=== PATIENT | male | born 1985 | race Two or more races ===

== ENCOUNTER 2019-10-14 02:48 | Emergency (ER) | payer SELFPAY ==
[~2019-10-14] VITALS: Ht 175.3 cm; Wt 9.1 kg
[2019-10-14 02:50] VITALS: BP 136/88
[2019-10-14] MEDS ORDERED: AZIT250T29 PO (03:14)
[2019-10-14] MEDS ORDERED: ALBU8.5H8 INH (03:14)
[2019-10-14] MEDS ORDERED: PRED20TA PO (03:14)
[2019-10-14] MEDS ORDERED: predniSONE 20 mg tablet PO ONE (03:30)
[2019-10-14] MEDS ORDERED: prednisone 10mg tablet PO SCH (03:30)
== END 2019-10-14 03:23 | disposition home or self-care (01) ==
LOC: ER 02:48 → EDBD 02:48 → ER 03:23
DX: J20.9 Acute bronchitis, unspecified (principal)
CPT/HCPCS: 99283; J7512

== ENCOUNTER 2021-07-10 09:59 | Emergency (ER) | payer SELFPAY ==
[~2021-07-10] VITALS: Ht 175.3 cm; Wt 93.2 kg
[~2021-07-10 09:59] MED LIST: ALBU8.5H17 INH
[2021-07-10 10:12] VITALS: BP 149/94
[2021-07-10 11:28] LABS: BASOPHILS % (AUTO) 0.1 % (0-1); EOSINOPHILS % (AUTO) 0 % (0-6); HEMATOCRIT 43.1 % (42.0-52.0); HEMOGLOBIN 15.2 g/dl (14.0-17.9); LYMPHOCYTES # (AUTO) 0.7 X10'3 (1.1-4.8); LYMPHOCYTES % (AUTO) 12.1 % (21-51); MEAN CORPUSCULAR HEMOGLOBIN 30.7 PG (27.0-31.0); MEAN CORPUSCULAR HGB CONC 35.3 g/dL (33.0-36.5); MEAN CORPUSCULAR VOLUME 87.1 FL (78-98); MONOCYTES # (AUTO) 0.4 X10'3 (0-0.9); MONOCYTES % (AUTO) 6.7 % (2-12); NEUTROPHILS # (AUTO) 4.7 X10'3 (1.8-7.7); NEUTROPHILS % (AUTO) 81.1 % (42-75); PLATELET COUNT 175 X10'3 (140-440); RED BLOOD COUNT 4.95 X10'6 (4.70-6.10); RED CELL DISTRIBUTION WIDTH 12.4 % (11.5-14.5); WHITE BLOOD COUNT 5.7 X10'3 (4.5-11.0)
[2021-07-10 11:41] LABS: ALANINE AMINOTRANSFERASE 20 U/L (12-78); ALBUMIN 3.2 G/DL (3.4-5.0); ALBUMIN/GLOBULIN RATIO 0.7 (1.1-1.5); ALKALINE PHOSPHATASE 92 IU/L (46-116); ANION GAP 19 (8-16); ASPARTATE AMINO TRANSFERASE 26 U/L (10-37); BILIRUBIN,TOTAL 0.6 MG/DL (0.1-1.0); BLOOD UREA NITROGEN 11 MG/DL (7-18); BUN/CREATININE RATIO 11.7 (5.4-32.0); CALCIUM 8.6 MG/DL (8.5-10.1); CHLORIDE 96 MMOL/L (99-107); CREATININE 0.94 MG/DL (0.60-1.10); GLUCOSE 221 MG/DL (70-104); POTASSIUM 4.3 MMOL/L (3.5-5.1); SODIUM 135 MMOL/L (135-145); TOTAL CARBON DIOXIDE 20.1 MMOL/L (24-32); eGFR > 90 ML/MIN
[2021-07-10] MEDS ORDERED: GUAI400T92 PO (12:57)
[2021-07-10] MEDS ORDERED: BENZ-38 PO (12:57)
== END 2021-07-10 13:29 | disposition home or self-care (01) ==
LOC: ER 10:00
DX: U07.1 COVID-19 (principal); J02.9 Acute pharyngitis, unspecified; R50.9 Fever, unspecified; R05.9 Cough, unspecified; R51.9 Headache, unspecified; R11.0 Nausea; Z79.899 Other long term (current) drug therapy
CPT/HCPCS: 36415; 80053; 85025; 87635; 99283; C9803

== ENCOUNTER 2021-07-23 11:25 | Inpatient (IN) | payer MEDICAID, OTHER ==
[~2021-07-23] VITALS: Ht 175.3 cm; Wt 52.1 kg
[~2021-07-23 11:25] MED LIST changes: +BENZ-38 PO; +GUAI400T92 PO; +etomidate 2mg/ml inj. ONE; +rocuronium 10mg/ml inj IV ONE
--- NOTE | 2021-07-23 11:58 | NUR ---
Pt stated that he has had increase SOB x 3 days. Pt has rapid respirations with grunting. Skin is cool Addendum: 07/23/21 at 1222 by [email or web address] Skin is cool, pale, and diaphoretic. On 6L NC. Waiting for RT to begin BiPap.
[2021-07-23] MEDS ORDERED: normal saline 1000ML IV soln IVB ONE (12:05)
[2021-07-23] MEDS ORDERED: enoxaparin 100mg/ml syringe SUBCUT ONE ×2 (12:05→12:10)
[2021-07-23] MEDS ORDERED: ringers solution, lactated 1000ml IV soln IV ONE (12:05)
--- NOTE | 2021-07-23 12:15 | NUR ---
RT at bedside and applied hi flow O2 NC and NRBM. Pt's color improved.
[2021-07-23 12:26] LABS: BASOPHILS # (AUTO) 0.1 X10'3 (0-0.2); BASOPHILS % (AUTO) 0.3 % (0-1); EOSINOPHILS % (AUTO) 0.1 % (0-6); HEMATOCRIT 46.8 % (42.0-52.0); HEMOGLOBIN 15.8 g/dl (14.0-17.9); LYMPHOCYTES # (AUTO) 1.4 X10'3 (1.1-4.8); LYMPHOCYTES % (AUTO) 6.9 % (21-51); MEAN CORPUSCULAR HEMOGLOBIN 29.9 PG (27.0-31.0); MEAN CORPUSCULAR HGB CONC 33.8 g/dL (33.0-36.5); MEAN CORPUSCULAR VOLUME 88.5 FL (78-98); MEAN PLATELET VOLUME 10.1 FL (7.4-10.4); MONOCYTES # (AUTO) 1.2 X10'3 (0-0.9); NEUTROPHILS # (AUTO) 17.6 X10'3 (1.8-7.7); NEUTROPHILS % (AUTO) 86.7 % (42-75); PLATELET COUNT 366 X10'3 (140-440); RED BLOOD COUNT 5.29 X10'6 (4.70-6.10); RED CELL DISTRIBUTION WIDTH 13.5 % (11.5-14.5); WHITE BLOOD COUNT 20.3 X10'3 (4.5-11.0)
[2021-07-23 12:28] LABS: ABG BASE EXCESS -6.1 mmol/L (-2.0-2.0); ABG HCO3 16.4 mmol/L (22.0-26.0); ABG OXYGEN SATURATION 94.2 % (94-97); ABG PO2 (T) 72.5 mmHg (75.0-100.0); ALLEN'S TEST POSITIVE; FCOHb 1.9 % (0.0-3.9); FLOW 15 L/min; FMetHb 0.2 % (0.0-1.5); FO2Hb 92.2 % (94-97); TOTAL HEMOGLOBIN 15.5 G/dl (14.0-18.0)
[2021-07-23] MEDS ORDERED: LORazepam 2 mg/ml vial IV ONE (12:50)
[2021-07-23] MEDS ORDERED: morphine 2 MG/ML inj. syringe IV ONE (12:50)
[2021-07-23 12:52] LABS: ALANINE AMINOTRANSFERASE 25 U/L (12-78); ALBUMIN 2.1 G/DL (3.4-5.0); ALBUMIN/GLOBULIN RATIO 0.3 (1.1-1.5); ALKALINE PHOSPHATASE 148 IU/L (46-116); ANION GAP 21 (8-16); ASPARTATE AMINO TRANSFERASE 16 U/L (10-37); BILIRUBIN,TOTAL 0.7 MG/DL (0.1-1.0); BLOOD UREA NITROGEN 9 MG/DL (7-18); BUN/CREATININE RATIO 8.9 (5.4-32.0); CALCIUM 9.3 MG/DL (8.5-10.1); CHLORIDE 95 MMOL/L (99-107); CREATININE 1.01 MG/DL (0.60-1.10); GLUCOSE 336 MG/DL (70-104); POTASSIUM 5.1 MMOL/L (3.5-5.1); SODIUM 135 MMOL/L (135-145); TOTAL CARBON DIOXIDE 19.5 MMOL/L (24-32); TOTAL PROTEIN 8.5 G/DL (6.4-8.2); eGFR 85 ML/MIN
[2021-07-23] MEDS ORDERED: vancomycin/NS 1 GM ADD-VANTAGE 250 ML IV ONE (12:55)
[2021-07-23] MEDS ORDERED: piperacillin/tazo 3.375gm/50ml 50 ML IV ONE (12:55)
[2021-07-23] MEDS ORDERED: iohexol 350MG/ML 100ml bottle IV ONE (12:56)
[2021-07-23] MEDS ORDERED: dexamethasone sod phosphate 10mg/ml inj IV STA (13:05)
--- NOTE | 2021-07-23 13:20 | NUR ---
Returned from CTA. Pt tolerated the procedure. O2 sats dipped to 91% while laying flat. Pt was and is on 15L high flow NC and 15L NRBM. He continues to grunt with breathing. Skin is dry and pale.
[2021-07-23] MEDS ORDERED: [UNRECOGNIZED DRUG - CODE] (13:50)
[2021-07-23] MEDS ORDERED: IBUP200C5 PO (13:50)
[2021-07-23 14:05] LABS: LACTATE DEHYDROGENASE 537 U/L (85-227)
[2021-07-23] MEDS ORDERED: TOCILIZUMAB IV ONE ×2 (14:10→14:35)
[2021-07-23] MEDS ORDERED: NORMAL SALINE IV ONE ×2 (14:10→14:35)
[2021-07-23] MEDS ORDERED: magnesium 4gm in 100ml NS 100 ML IV PRN (14:15)
[2021-07-23] MEDS ORDERED: LIDOcaine 2% 10ml TOPICAL JELLY (Urojet) TP ONE (14:15)
[2021-07-23] MEDS ORDERED: magnesium 2GM in 50ml NS 50 ML IV PRN (14:15)
[2021-07-23] MEDS: normal saline 1000ml 1,000 ML IV SCH (14:15)
[2021-07-23] MEDS ORDERED: ipratropium/albuterol 3ml nebule NEB PRN (14:15)
[2021-07-23] MEDS ORDERED: acetaminophen 325mg tablet PO PRN ×2 (14:15)
[2021-07-23] MEDS ORDERED: morphine 4 MG/ML inj SYRINge IV PRN (14:15)
[2021-07-23] MEDS ORDERED: potassium CL 10mEq/100ml bag 100 ML IV PRN (14:15)
[2021-07-23] MEDS ORDERED: potassium Cl 20 mEq SR tablet PO PRN ×2 (14:15)
[2021-07-23 14:17] LABS: C-REACTIVE PROTEIN 42.79 MG/DL (0.0-0.5)
[2021-07-23 14:32] LABS: APTT 35 SECONDS (22-32); D-DIMER 14.66 MG/L FEU (0-0.50)
[2021-07-23] MEDS ORDERED: vancomycin/NS 1 GM ADD-VANTAGE 250 ML X 1 DOSE IV ONE (15:00)
[2021-07-23] MEDS ORDERED: NO HOME MEDS PO (16:04)
[2021-07-23] MEDS ORDERED: ALBUTEROL INHALER 1 PUFF/90 MCG INHALER IH PRN (16:05)
--- NOTE | 2021-07-23 16:13 | NUR ---
Report given to ANDRÉS Milligan in CICU.
--- NOTE | 2021-07-23 16:13 | NUR ---
Patient in room CICU 2009. I have received report from Elizabeth BOWEN in ED and had the opportunity to ask questions and will assume patient care when he arrives to the floor.
[2021-07-23 17:00] VITALS: BP 127/80
[2021-07-23] MEDS: ondansetron/PF 4mg/2ml inj IV PRN (17:25)
[2021-07-23] MEDS ORDERED: MESSAGE TO PHARMACY PO ONE (17:50)
[2021-07-23] MEDS ORDERED: dextrose ORAL solution 15 GM/59 ML bottle PO PRN ×2 (17:50)
[2021-07-23] MEDS ORDERED: glucagon, human recombinant 1mg kit SUBCUT PRN (17:50)
--- NOTE | 2021-07-23 18:06 | NUR ---
Page to Respiratory: I noticed there is a bi-pap/c-pap order for patient Pastor Bautista Room 2008. His breathing is labored. Thanks
--- NOTE | 2021-07-23 18:19 | NUR ---
Problems reprioritized. Patient report given, questions answered & plan of care reviewed with Matheus BOWEN.
[2021-07-23 18:33] LABS: HEMOGLOBIN A1C 10.1 % (4.5-6.2)
[2021-07-23 19:00] VITALS: BP 125/81
[2021-07-23 20:00] VITALS: BP 115/80
[2021-07-23] MEDS: methylPREDNISolone sod succ 125mg/2ml vial IV SCH (20:09)
[2021-07-23] MEDS: docusate sod 100mg capsule PO SCH (20:09)
[2021-07-23] MEDS: piperacillin/tazo 4.5gm/100ml 100 ML IV SCH (20:18)
[2021-07-23] MEDS: insulin glargine (Lantus) pen - multi-dose SQ SCH (20:35)
[2021-07-23 21:00] VITALS: BP 122/87
[2021-07-23 22:00] VITALS: BP 120/84
[2021-07-23] MEDS: insulin Lispro (HumaLOG) vial - multi-dose SQ SCH (22:16)
[2021-07-23 23:00] VITALS: BP 114/78
[2021-07-24] VITALS (34 sets, daily range): BP systolic 100–149; BP diastolic 65–119
[2021-07-24] MEDS: piperacillin/tazo 4.5gm/100ml 100 ML IV SCH ×3 (02:47→16:34)
[2021-07-24] MEDS: methylPREDNISolone sod succ 125mg/2ml vial IV SCH ×4 (02:47→20:48)
[2021-07-24] MEDS: morphine 2 MG/ML inj. syringe IV PRN (02:52)
[2021-07-24] MEDS ORDERED: VANCOmycin 1250MG/NS 250ml Bag 250 ML IV SCH (03:00)
[2021-07-24 03:07] LABS: BASOPHILS # (AUTO) 0.1 X10'3 (0-0.2); BASOPHILS % (AUTO) 0.5 % (0-1); EOSINOPHILS % (AUTO) 0 % (0-6); HEMATOCRIT 43.3 % (42.0-52.0); HEMOGLOBIN 14.7 g/dl (14.0-17.9); LYMPHOCYTES # (AUTO) 0.9 X10'3 (1.1-4.8); MEAN CORPUSCULAR HEMOGLOBIN 29.9 PG (27.0-31.0); MEAN CORPUSCULAR HGB CONC 33.9 g/dL (33.0-36.5); MEAN CORPUSCULAR VOLUME 88.4 FL (78-98); MEAN PLATELET VOLUME 10.2 FL (7.4-10.4); MONOCYTES # (AUTO) 0.2 X10'3 (0-0.9); MONOCYTES % (AUTO) 1.6 % (2-12); NEUTROPHILS # (AUTO) 9.8 X10'3 (1.8-7.7); NEUTROPHILS % (AUTO) 89.9 % (42-75); PLATELET COUNT 328 X10'3 (140-440); RED CELL DISTRIBUTION WIDTH 13.8 % (11.5-14.5)
[2021-07-24 03:23] LABS: ALANINE AMINOTRANSFERASE 19 U/L (12-78); ALBUMIN 1.7 G/DL (3.4-5.0); ALBUMIN/GLOBULIN RATIO 0.3 (1.1-1.5); ALKALINE PHOSPHATASE 139 IU/L (46-116); ANION GAP 18 (8-16); BILIRUBIN,TOTAL 0.5 MG/DL (0.1-1.0); BLOOD UREA NITROGEN 13 MG/DL (7-18); BUN/CREATININE RATIO 18.8 (5.4-32.0); CALCIUM 9.1 MG/DL (8.5-10.1); CHLORIDE 102 MMOL/L (99-107); CREATININE 0.69 MG/DL (0.60-1.10); GLUCOSE 302 MG/DL (70-104); SODIUM 137 MMOL/L (135-145); TOTAL CARBON DIOXIDE 17.3 MMOL/L (24-32); TOTAL PROTEIN 7.5 G/DL (6.4-8.2); eGFR > 90 ML/MIN
[2021-07-24 03:28] LABS: MAGNESIUM 2.4 MG/DL (1.5-2.4)
[2021-07-24 03:29] LABS: D-DIMER 15.51 MG/L FEU (0-0.50)
--- NOTE | 2021-07-24 03:30 | NUR ---
Patient becoming increasingly more tachypneic and has labored breathing. Patient does not appear to be anxious, but is breathing at an abnormally fast rate which has now effected his O2 Saturation at an 86-88%. MD Juarez notified regarding these events this morning. Will get a repeat CXR, ABG, and start patient on Bipap. Will reassess afterwards.
[2021-07-24 03:43] LABS: ASPARTATE AMINO TRANSFERASE 18 U/L (10-37); LACTATE DEHYDROGENASE 429 U/L (85-227); PHOSPHORUS 4.4 MG/DL (2.3-4.5); POTASSIUM 5.3 MMOL/L (3.5-5.1)
--- NOTE | 2021-07-24 03:59 | NUR ---
RT notified regarding starting Bipap for patient resp status.
--- NOTE | 2021-07-24 04:00 | NUR ---
Patient level 3 for insulin with a glucose of 286.
[2021-07-24] MEDS: insulin Lispro (HumaLOG) vial - multi-dose SQ SCH ×4 (04:17→20:43)
[2021-07-24 04:23] LABS: ABG HCO3 14.4 mmol/L (22.0-26.0); ABG OXYGEN SATURATION 89.1 % (94-97); ABG PCO2 (T) 28.4 mmHg (35.0-48.0); ABG PO2 (T) 57.8 mmHg (75.0-100.0); ALLEN'S TEST POSITIVE; FCOHb 0.2 % (0.0-3.9); FMetHb 0.3 % (0.0-1.5); FO2Hb 88.7 % (94-97); PATIENT TEMPERATURE 36.8; RESPIRATORY RATE 12 b/min; TOTAL HEMOGLOBIN 15.5 G/dl (14.0-18.0)
--- NOTE | 2021-07-24 04:40 | NUR ---
After Bipap started, patient became even more anxious. Breathing 60/min and O2 sats low 80's. Dr. Mix doing rounds and she ordered for Precedex and Haldol if precedex unsuccessful.
[2021-07-24 04:44] LABS: FLOW 15 L/min
[2021-07-24] MEDS ORDERED: haloperidol lactate 5mg/ml inj IM ONE (05:05)
[2021-07-24] MEDS: dexmedetomidine/D5W 100mL 100 ML IV SCH ×2 (05:20→07:04)
--- NOTE | 2021-07-24 05:45 | NUR ---
Attempted another IV x2 for patient in case of emergency. Patient to anxious and moving too much to stick. Will need another IV for emergency if patient continues to decline.
--- NOTE | 2021-07-24 06:00 | NUR ---
Patient on max limit for precedex. Haldol given to help with anxiety. Patient still tachypneic, diaphoretic, and tachycardic. O2 sats slowly coming up, but will need more interventions if haldol IM does not work.
[2021-07-24 07:41] LABS: ABG BASE EXCESS -13.8 mmol/L (-2.0-2.0); ABG OXYGEN SATURATION 87.5 % (94-97); ABG PCO2 (T) 28.7 mmHg (35.0-48.0); ALLEN'S TEST POSITIVE; FCOHb 0.1 % (0.0-3.9); FMetHb 0.4 % (0.0-1.5); FO2Hb 87.1 % (94-97); RESPIRATORY RATE 12 b/min
[2021-07-24] MEDS: docusate sod 100mg capsule PO SCH ×2 (08:00→20:00)
[2021-07-24] MEDS: K and/or MAG REPLACEMENT MC SCH (08:00)
[2021-07-24] MEDS ORDERED: pantoprazole 40MG/NS 100ML BAG 100 ML IV SCH (08:00)
[2021-07-24] MEDS ORDERED: enoxaparin 40mg/0.4ml syringe SUBCUT SCH (08:00)
[2021-07-24] MEDS ORDERED: MIDAZolam 5mg/ml 2ml vial IV ONE (08:05)
[2021-07-24] MEDS ORDERED: NORepinephrine 8mg/ 250ml NS 250 ML IV ONE ×2 (08:16→12:30)
[2021-07-24 09:35] LABS: ABG BASE EXCESS -16.6 mmol/L (-2.0-2.0); ABG HCO3 11.9 mmol/L (22.0-26.0); ABG OXYGEN SATURATION 86.3 % (94-97); ABG PCO2 (T) 37.3 mmHg (35.0-48.0); ABG PO2 (T) 63.7 mmHg (75.0-100.0); FCOHb 0.1 % (0.0-3.9); FMetHb 0.4 % (0.0-1.5); FO2Hb 85.9 % (94-97); PEEP 8 cm H2O; RESPIRATORY RATE 12 b/min; TIDAL VOLUME 500 mL; TOTAL HEMOGLOBIN 14.9 G/dl (14.0-18.0)
[2021-07-24] MEDS ORDERED: midazolam 100mg in NS 100ml 100 ML IV SCH (09:35)
[2021-07-24] MEDS ORDERED: FENTANYL CITRATE/D5W/PF 100 ML IV PRN (09:35)
[2021-07-24] MEDS: dexmedetomidin/NS 400mcg/100ml 100 ML IV SCH ×3 (10:30→20:51)
[2021-07-24] MEDS: pantoprazole IV 40 MG in dextrose 5%-water 100 ML IV SCH (10:41)
[2021-07-24] MEDS: vancomycin/NS 1 GM ADD-VANTAGE 250 ML IV SCH ×2 (11:00→20:47)
--- NOTE | 2021-07-24 11:58 | NUR ---
Initial: Pt admit for acute respiratory failure and COVID. Per MD note pt emergently intubated this morning. No TF consult at this time, will place recommendations below for if expected prolonged intubation and to receive nutrition support. Noted pt with A1c 10.1% with no PMH of DM in EMR, d/w MD. Pt will need official DM dx by physician prior to RD being able to provide education once pt stable following extubation. [facility] 07/23. Will continue to follow closely. Recommendations: 1) IF TF, continuous Vital AF with goal rate of 85 mL/hr to begin at 25 mL/hr and advance by 20 mL Q8H as tolerated to goal rate; Pivot 1.5 at 70 mL/hr IF Vital AF out of stock 2) IF TF, monitor serum Na for water flush recommendations 3) IF TF, prealbumin q Thursday/ 4) IF TF, daily scaled weights 5) Routine bowel care 6) DM education once stable following extubation and official DM dx by physician; A1c 10.1% with no PMH DM in EMR Addendum: 07/24/21 at [address] Amended: Links added.
[2021-07-24] MEDS: NORepinephrine 8mg/ 250ml NS 250 ML IV SCH (12:45)
[2021-07-24] MEDS: midazolam 100mg in NS 100ml 100 ML IV PRN ×2 (14:47→21:04)
[2021-07-24] MEDS ORDERED: acetaminophen 325mg tablet PO PRN (15:40)
[2021-07-24 16:31] LABS: ABG BASE EXCESS -6.5 mmol/L (-2.0-2.0); ABG HCO3 19.2 mmol/L (22.0-26.0); ABG OXYGEN SATURATION 94.4 % (94-97); ABG PO2 (T) 75.6 mmHg (75.0-100.0); FCOHb 0.3 % (0.0-3.9); FMetHb 0.3 % (0.0-1.5); FO2Hb 93.8 % (94-97); PEEP 8 cm H2O; RESPIRATORY RATE 12 b/min; TIDAL VOLUME 500 mL; TOTAL HEMOGLOBIN 11.2 G/dl (14.0-18.0)
[2021-07-24] MEDS: fentaNYL 50mcg/ml PF inj. 2,500 MCG in normal saline 250ml IV soln 200 ML EPI PRN (17:55)
--- NOTE | 2021-07-24 19:00 | NUR ---
Assumed care; received report from Matheus BOWEN. Pt intubated and sedated, on Fentanyl at 300mcg/hr, Versed at 15mg/hr, Precedex at 1mcg/kg/hr, Norepinephrine at 0.1mcg/kg/min. Vent settings AC/PRVC rate 12, TV 500, FiO2 90% and PEEP 8. Pt temperature elevated at 38.6 degrees celcius, ice padding in use and room temperature made cool. Care ongoing as ordered by provider
[2021-07-24] MEDS: insulin glargine (Lantus) pen - multi-dose SQ SCH (20:46)
[2021-07-24] MEDS: enoxaparin 80mg/0.8ml syringe SUBCUT SCH (20:48)
[2021-07-24] MEDS: normal saline 1000ml 1,000 ML IV SCH (20:50)
[2021-07-25] VITALS (56 sets, daily range): BP systolic 58–138; BP diastolic 31–94
[2021-07-25] MEDS: piperacillin/tazo 4.5gm/100ml 100 ML IV SCH ×4 (00:22→23:57)
[2021-07-25] MEDS: dexmedetomidin/NS 400mcg/100ml 100 ML IV SCH ×6 (00:23→23:56)
[2021-07-25 02:06] LABS: ABG HCO3 26.8 mmol/L (22.0-26.0); ABG OXYGEN SATURATION 95.5 % (94-97); ABG PCO2 (T) 61.8 mmHg (35.0-48.0); ABG PO2 (T) 81.9 mmHg (75.0-100.0); ALLEN'S TEST POSITIVE; FCOHb 0.3 % (0.0-3.9); FMetHb 0.3 % (0.0-1.5); FO2Hb 94.9 % (94-97); PATIENT TEMPERATURE 36.1; PEEP 8 cm H2O; RESPIRATORY RATE 12 b/min; TOTAL HEMOGLOBIN 13.5 G/dl (14.0-18.0)
[2021-07-25] MEDS ORDERED: VANCOMYCIN LEVEL IV ONE (02:30)
[2021-07-25] MEDS: insulin Lispro (HumaLOG) vial - multi-dose SQ SCH ×2 (02:30→08:42)
[2021-07-25] MEDS: fentaNYL 50mcg/ml PF inj. 2,500 MCG in normal saline 250ml IV soln 200 ML EPI PRN ×2 (03:01→12:24)
[2021-07-25] MEDS: methylPREDNISolone sod succ 125mg/2ml vial IV SCH ×4 (03:07→20:59)
[2021-07-25 03:14] LABS: BASOPHILS % (AUTO) 0.2 % (0-1); EOSINOPHILS % (AUTO) 0 % (0-6); HEMATOCRIT 37.7 % (42.0-52.0); HEMOGLOBIN 12.4 g/dl (14.0-17.9); LYMPHOCYTES % (AUTO) 8.3 % (21-51); MEAN CORPUSCULAR HEMOGLOBIN 29.1 PG (27.0-31.0); MEAN CORPUSCULAR HGB CONC 32.8 g/dL (33.0-36.5); MEAN CORPUSCULAR VOLUME 88.5 FL (78-98); MONOCYTES # (AUTO) 0.6 X10'3 (0-0.9); MONOCYTES % (AUTO) 4.8 % (2-12); NEUTROPHILS % (AUTO) 86.7 % (42-75); PLATELET COUNT 223 X10'3 (140-440); RED BLOOD COUNT 4.26 X10'6 (4.70-6.10); RED CELL DISTRIBUTION WIDTH 13.8 % (11.5-14.5); WHITE BLOOD COUNT 11.6 X10'3 (4.5-11.0)
[2021-07-25 03:30] LABS: ALANINE AMINOTRANSFERASE 19 U/L (12-78); ALBUMIN 1.6 G/DL (3.4-5.0); ALBUMIN/GLOBULIN RATIO 0.3 (1.1-1.5); ALKALINE PHOSPHATASE 135 IU/L (46-116); ANION GAP 11 (8-16); ASPARTATE AMINO TRANSFERASE 15 U/L (10-37); BILIRUBIN,TOTAL 0.2 MG/DL (0.1-1.0); BLOOD UREA NITROGEN 23 MG/DL (7-18); BUN/CREATININE RATIO 30.7 (5.4-32.0); CALCIUM 8.8 MG/DL (8.5-10.1); CHLORIDE 110 MMOL/L (99-107); CREATININE 0.75 MG/DL (0.60-1.10); GLUCOSE 325 MG/DL (70-104); LACTATE DEHYDROGENASE 284 U/L (85-227); MAGNESIUM 2.5 MG/DL (1.5-2.4); PHOSPHORUS 4.6 MG/DL (2.3-4.5); SODIUM 146 MMOL/L (135-145); TOTAL PROTEIN 6.5 G/DL (6.4-8.2); VANCOMYCIN,TROUGH 8.8 UG/ML (6.0-14.0); eGFR > 90 ML/MIN
[2021-07-25 03:38] LABS: D-DIMER > 35.20 MG/L FEU (0-0.50)
[2021-07-25] MEDS: midazolam 100mg in NS 100ml 100 ML IV PRN ×3 (03:52→18:53)
[2021-07-25] MEDS: vancomycin/NS 1 GM ADD-VANTAGE 250 ML IV SCH (04:06)
[2021-07-25 05:48] LABS: ABG BASE EXCESS 2.4 mmol/L (-2.0-2.0); ABG HCO3 28.7 mmol/L (22.0-26.0); ABG OXYGEN SATURATION 96.7 % (94-97); ABG PCO2 (T) 49.6 mmHg (35.0-48.0); ABG PO2 (T) 86.3 mmHg (75.0-100.0); FCOHb 0.3 % (0.0-3.9); FMetHb 0.4 % (0.0-1.5); PEEP 12 cm H2O; RESPIRATORY RATE 26 b/min; TIDAL VOLUME 400 mL; TOTAL HEMOGLOBIN 12.5 G/dl (14.0-18.0)
[2021-07-25] MEDS: normal saline 1000ml 1,000 ML IV SCH ×3 (06:15→18:55)
--- NOTE | 2021-07-25 06:40 | NUR ---
REPORT GIVEN TO ONCOMING RN
[2021-07-25] MEDS: K and/or MAG REPLACEMENT MC SCH (08:00)
[2021-07-25] MEDS: pantoprazole IV 40 MG in dextrose 5%-water 100 ML IV SCH (08:15)
[2021-07-25] MEDS: docusate sod 100mg capsule PO SCH (08:16)
[2021-07-25] MEDS: enoxaparin 80mg/0.8ml syringe SUBCUT SCH ×2 (08:16→20:59)
[2021-07-25 09:09] LABS: BASOPHILS % (AUTO) 0.2 % (0-1); EOSINOPHILS % (AUTO) 0 % (0-6); HEMATOCRIT 35.2 % (42.0-52.0); HEMOGLOBIN 11.8 g/dl (14.0-17.9); LYMPHOCYTES # (AUTO) 1.1 X10'3 (1.1-4.8); LYMPHOCYTES % (AUTO) 10.4 % (21-51); MEAN CORPUSCULAR HEMOGLOBIN 29.6 PG (27.0-31.0); MEAN CORPUSCULAR HGB CONC 33.7 g/dL (33.0-36.5); MEAN PLATELET VOLUME 9.4 FL (7.4-10.4); MONOCYTES # (AUTO) 0.6 X10'3 (0-0.9); MONOCYTES % (AUTO) 5.8 % (2-12); NEUTROPHILS # (AUTO) 8.9 X10'3 (1.8-7.7); NEUTROPHILS % (AUTO) 83.6 % (42-75); PLATELET COUNT 183 X10'3 (140-440); WHITE BLOOD COUNT 10.7 X10'3 (4.5-11.0)
--- NOTE | 2021-07-25 09:36 | NUR ---
late entry for 07/24/2021 0830,. Pt became more tacchypnic itht resp rate 56 and increased shortnedd of breath and fatigue. Dr Blanco was called and pt prepped for intubation which was performed after etomidate, rocuronium and versed. versed gtt was started at 25 mcg per hour titrated up to 300 dea per hour, levophed was started for hypoternsion , versed gtt started and titrated up to 15 mg:hr, orogastric tube was placed, right femoral quad lumen central line, right femoral art line placed per Dr Blanco. Temp probe garcia placed with clear straw return.
[2021-07-25] MEDS: morphine 2 MG/ML inj. syringe IV PRN (10:53)
[2021-07-25 11:01] LABS: PREALBUMIN 9.6 MG/DL (19-36)
--- NOTE | 2021-07-25 11:27 | NUR ---
TF consult: Pt remains intubated, with an OG tube in place per EMR. TF recommendations below have been placed in EMR and d/w bedside RN. Will continue to follow and make recommendations as appropriate. Recommendations: 1) Continuous Vital AF with goal rate of 85 mL/hr to provide 2040 mL total volume/day, 2448 kcal, 153 g protein, and 1654 mL water 2) Additional 150 mL water flush Q4H; monitor serum Na and adjust as appropriate 3) Prealbumin q Thursday/ 4) Daily scaled weights 5) Routine bowel care 6) PO diet advancement to CHO controlled as medically indicated following extubation; consider BSS with ST prior to PO diet advancement 7) DM education once stable following extubation and official DM dx by physician; A1c 10.1% with no PMH DM in EMR Addendum: 07/25/21 at [address] Amended: Links added.
[2021-07-25] MEDS: NORepinephrine 8mg/ 250ml NS 250 ML IV SCH ×2 (11:50→18:54)
[2021-07-25] MEDS: VANCOmycin 1250MG/NS 250ml Bag 250 ML IV SCH ×2 (12:00→20:58)
[2021-07-25] MEDS ORDERED: dextrose ORAL solution 15 GM/59 ML bottle OGT PRN ×2 (13:11)
[2021-07-25] MEDS ORDERED: potassium Cl 20 mEq SR tablet OGT PRN ×2 (13:13)
[2021-07-25] MEDS ORDERED: acetaminophen 325mg/10.15ml oral unit dose solution OGT PRN (13:15)
[2021-07-25] MEDS ORDERED: bisacodyl 10mg suppository rectal RC PRN (14:15)
[2021-07-25 14:51] LABS: CLARITY,URINE SLIGHTLY CLOUDY (Clear); COLOR,URINE YELLOW (Yellow); GLUCOSE, URINE 100 mg/dl (Neg); KETONES,URINE NEGATIVE (Neg); LEUKOCYTE ESTERASE ,URINE NEGATIVE (Neg); NITRITES, URINE NEGATIVE (Neg); OCCULT BLOOD,URINE LARGE (Neg); PH,URINE 6.5 (4.8-8.0); PROTEIN,URINE TRACE mg/dl (Neg); UROBILINOGEN,URINE 0.2 E.U/dL (0.2-1.0)
[2021-07-25] MEDS: insulin regular, human U-100 3ml vial - multi-dose SQ SCH ×2 (14:55→21:04)
[2021-07-25 15:00] LABS: UA COLLECTION TYPE NON-SPECIFIED
[2021-07-25 15:25] LABS: COARSE GRANULAR CAST 0-3 /LPF (NEGATIVE); HYALINE CASTS 0-3 /LPF (NEGATIVE)
[2021-07-25 15:28] LABS: BACTERIA,URINE 1+ /HPF (Neg)
[2021-07-25 15:30] LABS: WBC CLUMPS,URINE FEW /HPF (NEGATIVE)
[2021-07-25 15:31] LABS: SQUAMOUS EPITHELIAL CELL,UR FEW /LPF (FEW)
[2021-07-25 15:34] LABS: RBC,URINE TNTC /HPF (0-2); WBC,URINE 0-4 /HPF (0-4)
[2021-07-25 15:45] LABS: AMMONIUM BIURATE CRYSTALS 2+ /HPF (NEGATIVE)
--- NOTE | 2021-07-25 18:45 | NUR ---
Received report from Julian BOWEN. Pt remains intubated and sedated, on Fentanyl at 150mcg/hr, Versed at 8mg/hr, Precedex at 1mcg/kg/hr, Norepinephrine at 0.01mcg/kg/min. Vent settings AC/PRVC rate 26, TV 400, FiO2 80% and PEEP 12. Now on tube feeding Vital AF, current rate 45ml/hr, to be titrated up per protocol. Opportunity to ask questions and review plan of care with offgoing RN. Care ongoing as ordered by providers.
[2021-07-25] MEDS: docusate sodium 100mg/10ml UD cup OGT SCH (20:59)
[2021-07-25] MEDS: insulin glargine (Lantus) pen - multi-dose SQ SCH (21:02)
[2021-07-26] VITALS (30 sets, daily range): BP systolic 100–135; BP diastolic 60–96
[2021-07-26] MEDS: methylPREDNISolone sod succ 125mg/2ml vial IV SCH ×4 (02:44→19:39)
[2021-07-26] MEDS: insulin regular, human U-100 3ml vial - multi-dose SQ SCH ×4 (02:46→19:27)
[2021-07-26 02:59] LABS: BASOPHILS % (AUTO) 0.1 % (0-1); EOSINOPHILS % (AUTO) 0 % (0-6); HEMATOCRIT 37.5 % (42.0-52.0); HEMOGLOBIN 12.4 g/dl (14.0-17.9); LYMPHOCYTES # (AUTO) 0.6 X10'3 (1.1-4.8); LYMPHOCYTES % (AUTO) 6.3 % (21-51); MEAN CORPUSCULAR HEMOGLOBIN 29.3 PG (27.0-31.0); MEAN CORPUSCULAR HGB CONC 33.1 g/dL (33.0-36.5); MEAN CORPUSCULAR VOLUME 88.7 FL (78-98); MEAN PLATELET VOLUME 10.7 FL (7.4-10.4); MONOCYTES # (AUTO) 0.3 X10'3 (0-0.9); MONOCYTES % (AUTO) 3.5 % (2-12); NEUTROPHILS % (AUTO) 90.1 % (42-75); PLATELET COUNT 164 X10'3 (140-440); RED BLOOD COUNT 4.23 X10'6 (4.70-6.10); RED CELL DISTRIBUTION WIDTH 13.9 % (11.5-14.5)
[2021-07-26 03:17] LABS: ALANINE AMINOTRANSFERASE 22 U/L (12-78); ALBUMIN 1.5 G/DL (3.4-5.0); ALBUMIN/GLOBULIN RATIO 0.3 (1.1-1.5); ALKALINE PHOSPHATASE 129 IU/L (46-116); ANION GAP 5 (8-16); ASPARTATE AMINO TRANSFERASE 15 U/L (10-37); BILIRUBIN,TOTAL 0.3 MG/DL (0.1-1.0); BLOOD UREA NITROGEN 27 MG/DL (7-18); BUN/CREATININE RATIO 40.9 (5.4-32.0); CALCIUM 8.7 MG/DL (8.5-10.1); CHLORIDE 113 MMOL/L (99-107); CREATININE 0.66 MG/DL (0.60-1.10); GLUCOSE 289 MG/DL (70-104); LACTATE DEHYDROGENASE 247 U/L (85-227); MAGNESIUM 2.7 MG/DL (1.5-2.4); PHOSPHORUS 3.9 MG/DL (2.3-4.5); POTASSIUM 4.5 MMOL/L (3.5-5.1); SODIUM 147 MMOL/L (135-145); TOTAL CARBON DIOXIDE 28.7 MMOL/L (24-32); eGFR > 90 ML/MIN
[2021-07-26 03:19] LABS: D-DIMER 8.85 MG/L FEU (0-0.50)
[2021-07-26 03:59] LABS: ABG BASE EXCESS 1.8 mmol/L (-2.0-2.0); ABG HCO3 27.4 mmol/L (22.0-26.0); ABG PCO2 (T) 46.6 mmHg (35.0-48.0); ABG PO2 (T) 64.6 mmHg (75.0-100.0); FCOHb 0.3 % (0.0-3.9); FMetHb 0.2 % (0.0-1.5); FO2Hb 91.5 % (94-97); PATIENT TEMPERATURE 36.8; PEEP 12 cm H2O; RESPIRATORY RATE 26 b/min; TIDAL VOLUME 400 mL; TOTAL HEMOGLOBIN 13.4 G/dl (14.0-18.0)
[2021-07-26] MEDS: VANCOmycin 1250MG/NS 250ml Bag 250 ML IV SCH (04:16)
[2021-07-26] MEDS: fentaNYL 50mcg/ml PF inj. 2,500 MCG in normal saline 250ml IV soln 200 ML EPI PRN (04:17)
[2021-07-26 04:32] LABS: LARGE PLATELETS FEW; PLATELET ESTIMATE NORMAL
[2021-07-26] MEDS: dexmedetomidin/NS 400mcg/100ml 100 ML IV SCH ×4 (05:06→20:14)
[2021-07-26] MEDS: midazolam 100mg in NS 100ml 100 ML IV PRN ×3 (05:22→22:35)
--- NOTE | 2021-07-26 06:00 | NUR ---
Patient in room CICU 2008. I have received report from Alexa BOWEN and had the opportunity to ask questions and assume patient care.
--- NOTE | 2021-07-26 06:39 | NUR ---
report given to Adri BOWEN
[2021-07-26] MEDS: docusate sodium 100mg/10ml UD cup OGT SCH ×2 (07:21→19:34)
[2021-07-26] MEDS: pantoprazole IV 40 MG in dextrose 5%-water 100 ML IV SCH (07:21)
[2021-07-26] MEDS: piperacillin/tazo 4.5gm/100ml 100 ML IV SCH ×2 (07:21→15:18)
[2021-07-26] MEDS: NORepinephrine 8mg/ 250ml NS 250 ML IV SCH ×2 (07:21→22:58)
[2021-07-26] MEDS: K and/or MAG REPLACEMENT MC SCH (07:22)
[2021-07-26] MEDS: enoxaparin 80mg/0.8ml syringe SUBCUT SCH ×2 (07:22→19:39)
[2021-07-26] MEDS ORDERED: furosemide 40mg/4ml inj IV ONE (08:50)
[2021-07-26] MEDS ORDERED: normal saline 1000ml 1,000 ML IV ONE (08:50)
[2021-07-26] MEDS: normal saline 1000ml 1,000 ML IV SCH ×2 (09:19→11:13)
[2021-07-26] MEDS ORDERED: VANCOMYCIN LEVEL IV ONE (11:30)
--- NOTE | 2021-07-26 11:46 | NUR ---
Noted pt with a low Zheng of 12. Per physical assessment pt with no edema or wounds. Will continue to follow. Addendum: 07/26/21 at [address] Amended: Links added.
[2021-07-26 12:19] LABS: C-REACTIVE PROTEIN 12.58 MG/DL (0.0-0.5)
[2021-07-26] MEDS ORDERED: fentaNYL/PF inj 2,500 MCG in normal saline 250ml IV soln 200 ML IV SCH (16:35)
[2021-07-26] MEDS: fentaNYL/PF inj 2,500 MCG in normal saline 250ml IV soln 200 ML IV PRN (16:45)
--- NOTE | 2021-07-26 18:30 | NUR ---
Problems reprioritized. Patient report given, questions answered & plan of care reviewed with Jose BOWEN.
[2021-07-26] MEDS: insulin glargine (Lantus) pen - multi-dose SQ SCH (19:28)
[2021-07-26] MEDS: acetaminophen 325mg/10.15ml oral unit dose solution OGT PRN (19:34)
[2021-07-26] MEDS ORDERED: lactobacillus rhamnosus 10,000 MMU CELLS/CAPSULE PO SCH (20:00)
[2021-07-27] VITALS (24 sets, daily range): BP systolic 103–132; BP diastolic 59–78
[2021-07-27] MEDS: piperacillin/tazo 4.5gm/100ml 100 ML IV SCH ×3 (00:16→16:26)
[2021-07-27] MEDS: normal saline 1000ml 1,000 ML IV SCH ×2 (00:36→21:50)
[2021-07-27] MEDS: insulin regular, human U-100 3ml vial - multi-dose SQ SCH ×4 (01:45→20:17)
[2021-07-27] MEDS: methylPREDNISolone sod succ 125mg/2ml vial IV SCH ×4 (02:21→19:49)
[2021-07-27 03:01] LABS: BASOPHILS % (AUTO) 0.2 % (0-1); EOSINOPHILS % (AUTO) 0 % (0-6); HEMATOCRIT 35.9 % (42.0-52.0); HEMOGLOBIN 11.9 g/dl (14.0-17.9); LYMPHOCYTES # (AUTO) 0.4 X10'3 (1.1-4.8); LYMPHOCYTES % (AUTO) 5.1 % (21-51); MEAN CORPUSCULAR HEMOGLOBIN 29.4 PG (27.0-31.0); MEAN CORPUSCULAR HGB CONC 33.2 g/dL (33.0-36.5); MEAN CORPUSCULAR VOLUME 88.6 FL (78-98); MEAN PLATELET VOLUME 10.8 FL (7.4-10.4); MONOCYTES # (AUTO) 0.3 X10'3 (0-0.9); MONOCYTES % (AUTO) 4.2 % (2-12); NEUTROPHILS # (AUTO) 6.7 X10'3 (1.8-7.7); NEUTROPHILS % (AUTO) 90.5 % (42-75); PLATELET COUNT 159 X10'3 (140-440); RED BLOOD COUNT 4.05 X10'6 (4.70-6.10); WHITE BLOOD COUNT 7.4 X10'3 (4.5-11.0)
[2021-07-27 03:19] LABS: ALANINE AMINOTRANSFERASE 20 U/L (12-78); ALBUMIN 1.4 G/DL (3.4-5.0); ALBUMIN/GLOBULIN RATIO 0.4 (1.1-1.5); ALKALINE PHOSPHATASE 99 IU/L (46-116); ANION GAP 4 (8-16); ASPARTATE AMINO TRANSFERASE 15 U/L (10-37); BILIRUBIN,TOTAL 0.3 MG/DL (0.1-1.0); BLOOD UREA NITROGEN 33 MG/DL (7-18); BUN/CREATININE RATIO 42.9 (5.4-32.0); C-REACTIVE PROTEIN 5.86 MG/DL (0.0-0.5); CALCIUM 7.6 MG/DL (8.5-10.1); CHLORIDE 112 MMOL/L (99-107); CREATININE 0.77 MG/DL (0.60-1.10); GLUCOSE 219 MG/DL (70-104); LACTATE DEHYDROGENASE 251 U/L (85-227); MAGNESIUM 2.4 MG/DL (1.5-2.4); POTASSIUM 3.8 MMOL/L (3.5-5.1); SODIUM 148 MMOL/L (135-145); TOTAL CARBON DIOXIDE 31.7 MMOL/L (24-32); TOTAL PROTEIN 5.3 G/DL (6.4-8.2); eGFR > 90 ML/MIN
[2021-07-27] MEDS: acetaminophen 325mg/10.15ml oral unit dose solution OGT PRN (03:39)
[2021-07-27 04:14] LABS: ABG BASE EXCESS 4.8 mmol/L (-2.0-2.0); ABG HCO3 29.9 mmol/L (22.0-26.0); ABG OXYGEN SATURATION 93.2 % (94-97); ABG PCO2 (T) 50.4 mmHg (35.0-48.0); ABG PO2 (T) 75.7 mmHg (75.0-100.0); FCOHb 0.3 % (0.0-3.9); FMetHb 0.3 % (0.0-1.5); FO2Hb 92.6 % (94-97); PATIENT TEMPERATURE 38.7; PEEP 12 cm H2O; RESPIRATORY RATE 26 b/min; TIDAL VOLUME 400 mL; TOTAL HEMOGLOBIN 12.5 G/dl (14.0-18.0)
[2021-07-27] MEDS: fentaNYL/PF inj 2,500 MCG in normal saline 250ml IV soln 200 ML IV PRN ×2 (05:10→15:27)
[2021-07-27 05:44] LABS: D-DIMER 6.72 MG/L FEU (0-0.50)
[2021-07-27] MEDS: midazolam 100mg in NS 100ml 100 ML IV PRN ×3 (06:27→18:37)
[2021-07-27] MEDS: dexmedetomidin/NS 400mcg/100ml 100 ML IV SCH ×3 (06:27→21:51)
[2021-07-27] MEDS: pantoprazole IV 40 MG in dextrose 5%-water 100 ML IV SCH (07:26)
[2021-07-27] MEDS: enoxaparin 80mg/0.8ml syringe SUBCUT SCH ×2 (07:27→19:50)
[2021-07-27] MEDS: docusate sodium 100mg/10ml UD cup OGT SCH ×2 (07:27→19:49)
[2021-07-27] MEDS: NORepinephrine 8mg/ 250ml NS 250 ML IV SCH (14:26)
[2021-07-27] MEDS: insulin glargine (Lantus) pen - multi-dose SQ SCH (20:18)
[2021-07-28] VITALS (24 sets, daily range): BP systolic 94–136; BP diastolic 55–81
[2021-07-28] MEDS ORDERED: normal saline 500ml IV soln 500 ML IV ONE ×2 (00:55→03:45)
[2021-07-28] MEDS: midazolam 100mg in NS 100ml 100 ML IV PRN ×6 (00:56→23:57)
[2021-07-28] MEDS: piperacillin/tazo 4.5gm/100ml 100 ML IV SCH ×4 (00:56→23:56)
--- NOTE | 2021-07-28 01:00 | NUR ---
Called Dr. Navas because the pt is having poor urine output. He ordered a NS 500 mL bolus as an attempt to improve pt's urine output. Will continue to monitor and communicate with Dr. Navas.
[2021-07-28] MEDS: methylPREDNISolone sod succ 125mg/2ml vial IV SCH ×4 (02:15→20:10)
--- NOTE | 2021-07-28 03:00 | NUR ---
I notified and called Dr. Navas because the pt is continuing to have low urine output. He ordered a second NS 500mL bolus. Will administered and continue to monitor.
[2021-07-28] MEDS: insulin regular, human U-100 3ml vial - multi-dose SQ SCH ×4 (03:01→21:59)
[2021-07-28 03:46] LABS: BASOPHILS % (AUTO) 0.2 % (0-1); EOSINOPHILS % (AUTO) 0 % (0-6); HEMATOCRIT 38.6 % (42.0-52.0); HEMOGLOBIN 12.6 g/dl (14.0-17.9); LYMPHOCYTES # (AUTO) 0.4 X10'3 (1.1-4.8); LYMPHOCYTES % (AUTO) 9.6 % (21-51); MEAN CORPUSCULAR HEMOGLOBIN 29.1 PG (27.0-31.0); MEAN CORPUSCULAR HGB CONC 32.6 g/dL (33.0-36.5); MEAN PLATELET VOLUME 10.9 FL (7.4-10.4); MONOCYTES # (AUTO) 0.3 X10'3 (0-0.9); MONOCYTES % (AUTO) 5.7 % (2-12); NEUTROPHILS # (AUTO) 3.8 X10'3 (1.8-7.7); NEUTROPHILS % (AUTO) 84.5 % (42-75); PLATELET COUNT 123 X10'3 (140-440); RED BLOOD COUNT 4.33 X10'6 (4.70-6.10); RED CELL DISTRIBUTION WIDTH 13.9 % (11.5-14.5); WHITE BLOOD COUNT 4.5 X10'3 (4.5-11.0)
[2021-07-28 03:58] LABS: ALANINE AMINOTRANSFERASE 18 U/L (12-78); ALBUMIN 1.4 G/DL (3.4-5.0); ALBUMIN/GLOBULIN RATIO 0.4 (1.1-1.5); ALKALINE PHOSPHATASE 83 IU/L (46-116); ANION GAP 2 (8-16); ASPARTATE AMINO TRANSFERASE 12 U/L (10-37); BILIRUBIN,TOTAL 0.3 MG/DL (0.1-1.0); BLOOD UREA NITROGEN 22 MG/DL (7-18); BUN/CREATININE RATIO 45.8 (5.4-32.0); C-REACTIVE PROTEIN 2.74 MG/DL (0.0-0.5); CALCIUM 7.2 MG/DL (8.5-10.1); CHLORIDE 113 MMOL/L (99-107); CREATININE 0.48 MG/DL (0.60-1.10); GLUCOSE 236 MG/DL (70-104); LACTATE DEHYDROGENASE 199 U/L (85-227); MAGNESIUM 2.5 MG/DL (1.5-2.4); POTASSIUM 3.7 MMOL/L (3.5-5.1); SODIUM 150 MMOL/L (135-145); TOTAL CARBON DIOXIDE 34.9 MMOL/L (24-32); TOTAL PROTEIN 5.1 G/DL (6.4-8.2); eGFR > 90 ML/MIN
[2021-07-28] MEDS: fentaNYL/PF inj 2,500 MCG in normal saline 250ml IV soln 200 ML IV PRN ×3 (04:00→20:07)
[2021-07-28] MEDS: dexmedetomidin/NS 400mcg/100ml 100 ML IV SCH ×5 (04:01→23:57)
[2021-07-28 04:11] LABS: ABG BASE EXCESS 8.4 mmol/L (-2.0-2.0); ABG HCO3 33.8 mmol/L (22.0-26.0); ABG OXYGEN SATURATION 86.1 % (94-97); ABG PCO2 (T) 48.5 mmHg (35.0-48.0); ABG PO2 (T) 49.2 mmHg (75.0-100.0); FCOHb 0.5 % (0.0-3.9); FMetHb 0.1 % (0.0-1.5); FO2Hb 85.6 % (94-97); PATIENT TEMPERATURE 36.5; PEEP 12 cm H2O; RESPIRATORY RATE 26 b/min; TIDAL VOLUME 400 mL; TOTAL HEMOGLOBIN 13.4 G/dl (14.0-18.0)
--- NOTE | 2021-07-28 05:50 | NUR ---
I called Ana because the pt continues to have poor urine output. She ordered 20mg of Lasix. Will continue to monitor and communicate the orders to day shift.
[2021-07-28] MEDS: NORepinephrine 8mg/ 250ml NS 250 ML IV SCH ×2 (06:12→21:49)
[2021-07-28] MEDS ORDERED: furosemide 20 MG/2 ML vial IV ONE (06:15)
--- NOTE | 2021-07-28 06:30 | NUR ---
Problems reprioritized. Patient report given, questions answered & plan of care reviewed with ANDRÉS Sanford.
[2021-07-28] MEDS: docusate sodium 100mg/10ml UD cup OGT SCH ×2 (09:37→20:10)
[2021-07-28] MEDS: pantoprazole IV 40 MG in dextrose 5%-water 100 ML IV SCH (09:38)
[2021-07-28] MEDS: enoxaparin 80mg/0.8ml syringe SUBCUT SCH ×2 (09:39→20:10)
[2021-07-28] MEDS ORDERED: normal saline 1000ml 1,000 ML IV ONE (09:40)
[2021-07-28] MEDS: normal saline 1000ml 1,000 ML IV SCH ×2 (11:38→21:59)
[2021-07-28] MEDS: insulin glargine (Lantus) pen - multi-dose SQ SCH (21:52)
[2021-07-29] VITALS (24 sets, daily range): BP systolic 93–149; BP diastolic 50–97
[2021-07-29] MEDS: methylPREDNISolone sod succ 125mg/2ml vial IV SCH ×4 (03:24→21:02)
[2021-07-29] MEDS: insulin regular, human U-100 3ml vial - multi-dose SQ SCH ×4 (03:29→21:12)
[2021-07-29] MEDS: midazolam 100mg in NS 100ml 100 ML IV PRN ×5 (03:33→23:41)
[2021-07-29] MEDS: fentaNYL/PF inj 2,500 MCG in normal saline 250ml IV soln 200 ML IV PRN ×3 (03:46→21:01)
[2021-07-29 03:49] LABS: BASOPHILS % (AUTO) 0.4 % (0-1); EOSINOPHILS % (AUTO) 0 % (0-6); HEMATOCRIT 38.9 % (42.0-52.0); HEMOGLOBIN 12.9 g/dl (14.0-17.9); LYMPHOCYTES # (AUTO) 0.4 X10'3 (1.1-4.8); LYMPHOCYTES % (AUTO) 7.3 % (21-51); MEAN CORPUSCULAR HEMOGLOBIN 29.4 PG (27.0-31.0); MEAN CORPUSCULAR HGB CONC 33.1 g/dL (33.0-36.5); MEAN CORPUSCULAR VOLUME 88.9 FL (78-98); MEAN PLATELET VOLUME 11.1 FL (7.4-10.4); MONOCYTES # (AUTO) 0.3 X10'3 (0-0.9); MONOCYTES % (AUTO) 5.5 % (2-12); NEUTROPHILS # (AUTO) 4.4 X10'3 (1.8-7.7); NEUTROPHILS % (AUTO) 86.8 % (42-75); PLATELET COUNT 113 X10'3 (140-440); RED BLOOD COUNT 4.38 X10'6 (4.70-6.10); RED CELL DISTRIBUTION WIDTH 14.4 % (11.5-14.5); WHITE BLOOD COUNT 5.1 X10'3 (4.5-11.0)
[2021-07-29 04:07] LABS: ALANINE AMINOTRANSFERASE 17 U/L (12-78); ALBUMIN 1.2 G/DL (3.4-5.0); ALBUMIN/GLOBULIN RATIO 0.4 (1.1-1.5); ALKALINE PHOSPHATASE 68 IU/L (46-116); ANION GAP 5 (8-16); ASPARTATE AMINO TRANSFERASE 10 U/L (10-37); BILIRUBIN,TOTAL 0.2 MG/DL (0.1-1.0); BLOOD UREA NITROGEN 27 MG/DL (7-18); CALCIUM 7.1 MG/DL (8.5-10.1); CHLORIDE 113 MMOL/L (99-107); GLUCOSE 248 MG/DL (70-104); POTASSIUM 3.7 MMOL/L (3.5-5.1); SODIUM 149 MMOL/L (135-145); TOTAL PROTEIN 4.6 G/DL (6.4-8.2); eGFR > 90 ML/MIN
[2021-07-29 04:08] LABS: C-REACTIVE PROTEIN 1.38 MG/DL (0.0-0.5); LACTATE DEHYDROGENASE 186 U/L (85-227); MAGNESIUM 2.4 MG/DL (1.5-2.4); PHOSPHORUS 3.2 MG/DL (2.3-4.5)
[2021-07-29 04:10] LABS: D-DIMER 5.43 MG/L FEU (0-0.50)
[2021-07-29 04:28] LABS: ABG BASE EXCESS 3.6 mmol/L (-2.0-2.0); ABG HCO3 28.5 mmol/L (22.0-26.0); ABG PCO2 (T) 45.1 mmHg (35.0-48.0); ABG PO2 (T) 57.9 mmHg (75.0-100.0); FCOHb 0.3 % (0.0-3.9); FMetHb 0.1 % (0.0-1.5); FO2Hb 88.6 % (94-97); PATIENT TEMPERATURE 37.3; PEEP 12 cm H2O; RESPIRATORY RATE 26 b/min; TIDAL VOLUME 400 mL; TOTAL HEMOGLOBIN 13.6 G/dl (14.0-18.0)
--- NOTE | 2021-07-29 06:30 | NUR ---
Patient in room CICU 2008. I have received report from Amarilys Wilson and had the opportunity to ask questions and assume patient care.
[2021-07-29] MEDS: docusate sodium 100mg/10ml UD cup OGT SCH ×2 (07:49→20:00)
[2021-07-29] MEDS: piperacillin/tazo 4.5gm/100ml 100 ML IV SCH ×3 (07:49→23:41)
[2021-07-29] MEDS: enoxaparin 80mg/0.8ml syringe SUBCUT SCH ×2 (07:49→21:02)
[2021-07-29] MEDS: pantoprazole IV 40 MG in dextrose 5%-water 100 ML IV SCH (07:54)
[2021-07-29] MEDS ORDERED: furosemide 40mg/4ml inj IV SCH (08:00)
--- NOTE | 2021-07-29 09:33 | NUR ---
Dr. Boyer by to round on patient, discussed current labs and medications. He stated that the patient is 5l positive and to D/C ns fluids and add Q8h 40mg lasix
[2021-07-29] MEDS: dexmedetomidin/NS 400mcg/100ml 100 ML IV SCH ×4 (09:39→23:41)
[2021-07-29] MEDS: polyethylene glycol 3350 17gm powd pack OGT PRN (12:23)
--- NOTE | 2021-07-29 12:53 | NUR ---
F/u 07/29: Pt remains intubated tolerating TF at goal GRV WNL. LBM 07/23 receiving routine colace w/ additional bowel care to start today per MD. Receiving lasix w/ concern for fluid overload per MD w/ current free water 150ml Q4H providing 1.0ml/kcal and serum Na 148-150 past 3 days. Pt prior NS at 100ml/hr stopped and had received additional 3L NS 07/28 w/ overall +6.7kg and +10.L fluid balance past two days per EMR. Will monitor for serum Na and further free water/TF adjustment needs this admit. Recommendations: 1) Continuous Vital AF with goal rate of 85 mL/hr to provide 2040 mL total volume/day, 2448 kcal, 153 g protein, and 1654 mL water 2) Additional 150 mL water flush Q4H; monitor serum Na and adjust as appropriate 3) Prealbumin q Thursday/;Daily scaled weights 4) Routine bowel care; 6 days constipation 5) PO diet advancement to CHO controlled as medically indicated following extubation; consider BSS with ST prior to PO diet advancement 6) DM education once stable following extubation and official DM dx by physician; A1c 10.1% with no PMH DM in EMR Addendum: 07/29/21 at [address] Amended: Links added.
[2021-07-29] MEDS: NORepinephrine 8mg/ 250ml NS 250 ML IV SCH (13:26)
[2021-07-29] MEDS: furosemide 40mg/4ml inj IV SCH ×2 (15:54→23:40)
[2021-07-29] MEDS ORDERED: CISatracurium **Bolus** 2 mg/ml inj IV PRN (19:40)
--- NOTE | 2021-07-29 20:00 | NUR ---
Called and spoke with Dr. Juarez regarding patient's O2 saturation sustaining in the mid and high 80's. PRN Nimbex bolus ordered. If patient responds to Nimbex bolus will start drip. 2130 Nimbex bolus given to patient, no changes in patient's saturation. Will continue to monitor patient's status.
[2021-07-29] MEDS: lactulose 20gm/30ml cup PO SCH (21:02)
[2021-07-29] MEDS: insulin glargine (Lantus) pen - multi-dose SQ SCH (21:08)
[2021-07-30] VITALS (25 sets, daily range): BP systolic 90–130; BP diastolic 54–86
[2021-07-30] MEDS: lactulose 20gm/30ml cup PO SCH ×4 (02:28→20:32)
[2021-07-30] MEDS: methylPREDNISolone sod succ 125mg/2ml vial IV SCH ×4 (02:28→23:03)
[2021-07-30] MEDS: insulin regular, human U-100 3ml vial - multi-dose SQ SCH ×4 (02:32→20:51)
[2021-07-30 03:08] LABS: BASOPHILS % (AUTO) 0.5 % (0-1); EOSINOPHILS % (AUTO) 0 % (0-6); HEMATOCRIT 44.3 % (42.0-52.0); HEMOGLOBIN 14.5 g/dl (14.0-17.9); LYMPHOCYTES # (AUTO) 0.6 X10'3 (1.1-4.8); LYMPHOCYTES % (AUTO) 6.2 % (21-51); MEAN CORPUSCULAR HEMOGLOBIN 29.3 PG (27.0-31.0); MEAN CORPUSCULAR HGB CONC 32.7 g/dL (33.0-36.5); MEAN CORPUSCULAR VOLUME 89.5 FL (78-98); MEAN PLATELET VOLUME 10.7 FL (7.4-10.4); MONOCYTES # (AUTO) 0.5 X10'3 (0-0.9); MONOCYTES % (AUTO) 5.5 % (2-12); NEUTROPHILS # (AUTO) 8.3 X10'3 (1.8-7.7); NEUTROPHILS % (AUTO) 87.8 % (42-75); PLATELET COUNT 255 X10'3 (140-440); RED BLOOD COUNT 4.95 X10'6 (4.70-6.10); RED CELL DISTRIBUTION WIDTH 14.7 % (11.5-14.5); WHITE BLOOD COUNT 9.5 X10'3 (4.5-11.0)
[2021-07-30 03:16] LABS: D-DIMER 4.05 MG/L FEU (0-0.50)
[2021-07-30 03:44] LABS: ALANINE AMINOTRANSFERASE 24 U/L (12-78); ALBUMIN 1.4 G/DL (3.4-5.0); ALBUMIN/GLOBULIN RATIO 0.4 (1.1-1.5); ALKALINE PHOSPHATASE 71 IU/L (46-116); ANION GAP 5 (8-16); ASPARTATE AMINO TRANSFERASE 15 U/L (10-37); BILIRUBIN,TOTAL 0.3 MG/DL (0.1-1.0); BLOOD UREA NITROGEN 25 MG/DL (7-18); C-REACTIVE PROTEIN 0.97 MG/DL (0.0-0.5); CALCIUM 7.1 MG/DL (8.5-10.1); CHLORIDE 111 MMOL/L (99-107); CREATININE 0.61 MG/DL (0.60-1.10); GLUCOSE 204 MG/DL (70-104); LACTATE DEHYDROGENASE 254 U/L (85-227); MAGNESIUM 2.3 MG/DL (1.5-2.4); PHOSPHORUS 3.5 MG/DL (2.3-4.5); POTASSIUM 3.8 MMOL/L (3.5-5.1); SODIUM 148 MMOL/L (135-145); TOTAL CARBON DIOXIDE 32.2 MMOL/L (24-32); TOTAL PROTEIN 4.9 G/DL (6.4-8.2); eGFR > 90 ML/MIN
[2021-07-30 03:57] LABS: ABG BASE EXCESS 8.6 mmol/L (-2.0-2.0); ABG HCO3 34.6 mmol/L (22.0-26.0); ABG OXYGEN SATURATION 87.5 % (94-97); ABG PCO2 (T) 52.5 mmHg (35.0-48.0); ABG PO2 (T) 53.8 mmHg (75.0-100.0); FCOHb 0.6 % (0.0-3.9); FMetHb 0.2 % (0.0-1.5); FO2Hb 86.8 % (94-97); PEEP 12 cm H2O; RESPIRATORY RATE 26 b/min; TIDAL VOLUME 400 mL
[2021-07-30 04:09] LABS: LARGE PLATELETS FEW; PLATELET ESTIMATE NORMAL
[2021-07-30] MEDS: dexmedetomidin/NS 400mcg/100ml 100 ML IV SCH ×2 (04:32→07:42)
[2021-07-30] MEDS: fentaNYL/PF inj 2,500 MCG in normal saline 250ml IV soln 200 ML IV PRN ×4 (04:32→23:04)
[2021-07-30] MEDS: midazolam 100mg in NS 100ml 100 ML IV PRN ×5 (04:33→20:34)
[2021-07-30] MEDS: NORepinephrine 8mg/ 250ml NS 250 ML IV SCH ×2 (05:54→17:24)
--- NOTE | 2021-07-30 06:41 | NUR ---
Patient in room CICU 2008. I have received report from Amarilys BOWEN and had the opportunity to ask questions and assume patient care.
[2021-07-30] MEDS: enoxaparin 80mg/0.8ml syringe SUBCUT SCH ×2 (07:41→20:32)
[2021-07-30] MEDS: acetaminophen 325mg/10.15ml oral unit dose solution OGT PRN (07:41)
[2021-07-30] MEDS: pantoprazole IV 40 MG in dextrose 5%-water 100 ML IV SCH (07:41)
[2021-07-30] MEDS: docusate sodium 100mg/10ml UD cup OGT SCH ×2 (07:42→20:36)
[2021-07-30] MEDS: piperacillin/tazo 4.5gm/100ml 100 ML IV SCH ×2 (07:42→16:00)
[2021-07-30] MEDS: mineral oil/petrolatum ophthal oint EACHEYE SCH ×3 (07:43→20:31)
--- NOTE | 2021-07-30 09:21 | NUR ---
Dr. Boyer by to round on patient, informed him on labs and that the patient is easily aggitated and that the rotoprone bed has been ordered. He stated to start a propofol drip and wean off the precedex, He also ordered a picc line to be placed before going on the rotoprone bed. D/c the art and cvl femoral lines once the new picc is placed
[2021-07-30] MEDS: furosemide 40mg/4ml inj IV SCH ×3 (09:27→23:04)
[2021-07-30 09:37] LABS: TRIGLYCERIDES 123 MG/DL (20-135)
[2021-07-30] MEDS: propofol 1000mg/100ml bottle 100 ML IV SCH ×4 (10:00→20:34)
[2021-07-30 12:20] LABS: CLARITY,URINE SLIGHTLY CLOUDY (Clear); COLOR,URINE YELLOW (Yellow); GLUCOSE, URINE NEGATIVE (Neg); KETONES,URINE NEGATIVE (Neg); LEUKOCYTE ESTERASE ,URINE NEGATIVE (Neg); NITRITES, URINE NEGATIVE (Neg); OCCULT BLOOD,URINE NEGATIVE (Neg); PH,URINE 6.5 (4.8-8.0); PROTEIN,URINE NEGATIVE (Neg); UROBILINOGEN,URINE 0.2 E.U/dL (0.2-1.0)
[2021-07-30 12:21] LABS: UA COLLECTION TYPE FOLEY CATH
[2021-07-30 12:37] LABS: BACTERIA,URINE FEW /HPF (Neg); RBC,URINE 0-2 /HPF (0-2); SQUAMOUS EPITHELIAL CELL,UR FEW /LPF (FEW); WBC,URINE 0-4 /HPF (0-4)
[2021-07-30 13:14] LABS: AMMONIUM BIURATE CRYSTALS FEW /HPF (NEGATIVE)
[2021-07-30 13:18] LABS: HYALINE CASTS 0-3 /LPF (NEGATIVE); YEAST MANY /HPF (NEGATIVE)
--- NOTE | 2021-07-30 16:30 | NUR ---
Femoral cvl and art line removed canula intact
--- NOTE | 2021-07-30 18:42 | NUR ---
Problems reprioritized. Patient report given, questions answered & plan of care reviewed with Amarilys BOWEN.
[2021-07-30] MEDS: vancomycin/NS 1 GM ADD-VANTAGE 250 ML X 1 DOSE IV SCH ×2 (20:45→21:09)
[2021-07-30] MEDS: insulin glargine (Lantus) pen - multi-dose SQ SCH (20:49)
[2021-07-31] VITALS (24 sets, daily range): BP systolic 85–134; BP diastolic 40–90
[2021-07-31] MEDS ORDERED: cefepime 2g/NS 100ml ADVANTAGE 100 ML IV SCH
[2021-07-31] MEDS: lactulose 20gm/30ml cup PO SCH ×2 (02:00→07:44)
[2021-07-31] MEDS: midazolam 100mg in NS 100ml 100 ML IV PRN ×5 (02:03→19:37)
[2021-07-31] MEDS: mineral oil/petrolatum ophthal oint EACHEYE SCH ×4 (02:04→19:37)
[2021-07-31] MEDS: insulin regular, human U-100 3ml vial - multi-dose SQ SCH ×4 (02:25→19:36)
[2021-07-31] MEDS: cefepime inj 2 GM in dextrose 5%-water 100 ML IV SCH ×4 (02:27→23:06)
[2021-07-31 02:52] LABS: BASOPHILS # (AUTO) 0.1 X10'3 (0-0.2); BASOPHILS % (AUTO) 0.5 % (0-1); EOSINOPHILS # (AUTO) 0.1 X10'3 (0-0.9); EOSINOPHILS % (AUTO) 0.4 % (0-6); HEMATOCRIT 44.5 % (42.0-52.0); HEMOGLOBIN 14.4 g/dl (14.0-17.9); LYMPHOCYTES # (AUTO) 1.7 X10'3 (1.1-4.8); LYMPHOCYTES % (AUTO) 12.6 % (21-51); MEAN CORPUSCULAR HGB CONC 32.4 g/dL (33.0-36.5); MEAN CORPUSCULAR VOLUME 89.4 FL (78-98); MEAN PLATELET VOLUME 9.9 FL (7.4-10.4); MONOCYTES # (AUTO) 1.5 X10'3 (0-0.9); MONOCYTES % (AUTO) 11.1 % (2-12); NEUTROPHILS # (AUTO) 10.4 X10'3 (1.8-7.7); NEUTROPHILS % (AUTO) 75.4 % (42-75); PLATELET COUNT 276 X10'3 (140-440); RED BLOOD COUNT 4.98 X10'6 (4.70-6.10); RED CELL DISTRIBUTION WIDTH 14.6 % (11.5-14.5); WHITE BLOOD COUNT 13.8 X10'3 (4.5-11.0)
[2021-07-31 03:04] LABS: D-DIMER 3.53 MG/L FEU (0-0.50)
[2021-07-31 03:18] LABS: ALANINE AMINOTRANSFERASE 32 U/L (12-78); ALBUMIN 1.5 G/DL (3.4-5.0); ALBUMIN/GLOBULIN RATIO 0.4 (1.1-1.5); ALKALINE PHOSPHATASE 63 IU/L (46-116); ANION GAP 5 (8-16); ASPARTATE AMINO TRANSFERASE 21 U/L (10-37); BILIRUBIN,TOTAL 0.4 MG/DL (0.1-1.0); BLOOD UREA NITROGEN 19 MG/DL (7-18); BUN/CREATININE RATIO 41.3 (5.4-32.0); CALCIUM 7.3 MG/DL (8.5-10.1); CHLORIDE 108 MMOL/L (99-107); CREATININE 0.46 MG/DL (0.60-1.10); GLUCOSE 103 MG/DL (70-104); LACTATE DEHYDROGENASE 303 U/L (85-227); MAGNESIUM 2.2 MG/DL (1.5-2.4); PHOSPHORUS 3.6 MG/DL (2.3-4.5); POTASSIUM 3.2 MMOL/L (3.5-5.1); SODIUM 149 MMOL/L (135-145); TOTAL CARBON DIOXIDE 36.3 MMOL/L (24-32); TOTAL PROTEIN 4.9 G/DL (6.4-8.2); TRIGLYCERIDES 130 MG/DL (20-135); eGFR > 90 ML/MIN
[2021-07-31 03:40] LABS: ABG BASE EXCESS 11.3 mmol/L (-2.0-2.0); ABG HCO3 35.9 mmol/L (22.0-26.0); ABG OXYGEN SATURATION 96.2 % (94-97); ABG PCO2 (T) 44.9 mmHg (35.0-48.0); ABG PO2 (T) 77.5 mmHg (75.0-100.0); ALLEN'S TEST Modified; FCOHb 0.6 % (0.0-3.9); FMetHb 0.2 % (0.0-1.5); FO2Hb 95.4 % (94-97); PATIENT TEMPERATURE 36.5; PEEP 12 cm H2O; RESPIRATORY RATE 26 b/min; TIDAL VOLUME 400 mL; TOTAL HEMOGLOBIN 14.9 G/dl (14.0-18.0)
--- NOTE | 2021-07-31 06:45 | NUR ---
Patient in room CICU 2008. I have received report from Amarilys BOWEN and had the opportunity to ask questions and assume patient care.
[2021-07-31] MEDS: furosemide 40mg/4ml inj IV SCH ×2 (07:42→19:21)
[2021-07-31] MEDS: propofol 1000mg/100ml bottle 100 ML IV SCH ×5 (07:42→23:05)
[2021-07-31] MEDS: enoxaparin 80mg/0.8ml syringe SUBCUT SCH ×2 (07:43→19:36)
[2021-07-31] MEDS: docusate sodium 100mg/10ml UD cup OGT SCH ×2 (07:43→19:21)
[2021-07-31] MEDS: pantoprazole IV 40 MG in dextrose 5%-water 100 ML IV SCH (07:43)
[2021-07-31] MEDS: methylPREDNISolone sod succ 125mg/2ml vial IV SCH ×3 (07:44→23:06)
[2021-07-31] MEDS ORDERED: vancomycin/NS 1 GM ADD-VANTAGE 250 ML IV SCH (08:00)
[2021-07-31] MEDS: fentaNYL/PF inj 2,500 MCG in normal saline 250ml IV soln 200 ML IV PRN ×2 (09:43→17:11)
[2021-07-31] MEDS: NORepinephrine 8mg/ 250ml NS 250 ML IV SCH ×2 (09:44→19:22)
[2021-07-31] MEDS: VANCOmycin 1250MG/NS 250ml Bag 250 ML IV SCH ×2 (10:00→17:09)
[2021-07-31] MEDS ORDERED: lactulose 20gm/30ml cup PO PRN (11:35)
--- NOTE | 2021-07-31 12:06 | NUR ---
Reassessment: Pt remains intubated, now on rotoprone bed. Noted Propofol has been started, visualized at bedside to be running at 22.32 mL/hr providing 589 kcal/day. Recommend reducing TF goal rate to 70 mL/hr as to not overfeed on the vent. Updated recommendations have been placed in EMR and d/w bedside RN, see below. Noted pt now receiving 200 mL water flush Q4H per MD, up from previous recommendation of 150 mL Q4H. Serum Na elevated at 149 MMOL/L though appears relatively stable at this time. Pt with significant BM today per RN, now with a rectal tube in place d/t pt with diarrhea, likely r/t resolution of constipation. Pt to continue with routine Colace though Lactulose to change to PRN per MD. Will continue to follow closely and adjust nutrition recommendations as appropriate. Recommendations: 1) Given Propofol rate of 22.32 mL/hr (589 kcal/day), continuous Vital AF with goal rate of 70 mL/hr to provide 1680 mL total volume/day, 2016 kcal, 126 g protein, and 1362 mL water 2) Monitor for adjustments in Propofol rate and adjust TF as appropriate 3) IF Propofol is discontinued, resume continuous Vital AF with goal rate of 85 mL/hr to provide 2040 mL total volume/day, 2448 kcal, 153 g protein, and 1654 mL water 4) Additional 200 mL water flush Q4H per MD; monitor serum Na 5) Prealbumin q Thursday/ 6) Daily scaled weights 7) Routine bowel care; previous 7 days constipation 8) PO diet advancement to CHO controlled as medically indicated following extubation; consider BSS with ST prior to PO diet advancement 9) DM education once stable following extubation and official DM dx by physician; A1c 10.1% with no PMH DM in EMR Addendum: 07/31/21 at [address] Amended: Links added.
--- NOTE | 2021-07-31 13:06 | NUR ---
Patients sister Najma called and asked for an update, updated her on his condition and the plan of care for the next few days, answered questions that she presented. She thanked us for taking care of him.
[2021-07-31] MEDS: POTASSIUM BICARB 20meq eff tab 20 MEQ TABLET.EFF OGT PRN (16:12)
[2021-07-31] MEDS: dexmedetomidin/NS 400mcg/100ml 100 ML IV SCH (18:05)
--- NOTE | 2021-07-31 18:11 | NUR ---
Problems reprioritized. Patient report given, questions answered & plan of care reviewed with Amarilys BOWEN.
[2021-07-31] MEDS: lactulose 20gm/30ml cup OGT PRN (19:19)
[2021-07-31] MEDS: insulin glargine (Lantus) pen - multi-dose SQ SCH (19:26)
[2021-08-01] VITALS (24 sets, daily range): BP systolic 91–138; BP diastolic 56–95
[2021-08-01 01:31] LABS: ABG BASE EXCESS 12.1 mmol/L (-2.0-2.0); ABG HCO3 36.9 mmol/L (22.0-26.0); ABG OXYGEN SATURATION 91.4 % (94-97); ABG PCO2 (T) 47.2 mmHg (35.0-48.0); ABG PO2 (T) 57.6 mmHg (75.0-100.0); ALLEN'S TEST POSITIVE; FCOHb 0.4 % (0.0-3.9); FMetHb 0.1 % (0.0-1.5); FO2Hb 90.9 % (94-97); PATIENT TEMPERATURE 36.7; PEEP 12 cm H2O; RESPIRATORY RATE 26 b/min; TIDAL VOLUME 400 mL; TOTAL HEMOGLOBIN 14.4 G/dl (14.0-18.0)
[2021-08-01] MEDS: fentaNYL/PF inj 2,500 MCG in normal saline 250ml IV soln 200 ML IV PRN ×4 (01:49→23:38)
[2021-08-01] MEDS: mineral oil/petrolatum ophthal oint EACHEYE SCH ×4 (01:49→20:00)
[2021-08-01] MEDS: insulin regular, human U-100 3ml vial - multi-dose SQ SCH ×4 (01:51→20:16)
[2021-08-01 02:00] LABS: BASOPHILS % (AUTO) 0.2 % (0-1); EOSINOPHILS % (AUTO) 0 % (0-6); HEMATOCRIT 40.8 % (42.0-52.0); HEMOGLOBIN 13.7 g/dl (14.0-17.9); LYMPHOCYTES # (AUTO) 0.8 X10'3 (1.1-4.8); LYMPHOCYTES % (AUTO) 8.7 % (21-51); MEAN CORPUSCULAR HEMOGLOBIN 29.5 PG (27.0-31.0); MEAN CORPUSCULAR HGB CONC 33.5 g/dL (33.0-36.5); MEAN CORPUSCULAR VOLUME 87.9 FL (78-98); MEAN PLATELET VOLUME 9.9 FL (7.4-10.4); MONOCYTES # (AUTO) 0.9 X10'3 (0-0.9); MONOCYTES % (AUTO) 9.8 % (2-12); NEUTROPHILS # (AUTO) 7.5 X10'3 (1.8-7.7); NEUTROPHILS % (AUTO) 81.3 % (42-75); PLATELET COUNT 254 X10'3 (140-440); RED BLOOD COUNT 4.64 X10'6 (4.70-6.10); RED CELL DISTRIBUTION WIDTH 14.4 % (11.5-14.5); WHITE BLOOD COUNT 9.2 X10'3 (4.5-11.0)
[2021-08-01 02:08] LABS: D-DIMER 1.42 MG/L FEU (0-0.50)
[2021-08-01] MEDS: dexmedetomidin/NS 400mcg/100ml 100 ML IV SCH ×2 (02:10→17:31)
[2021-08-01 02:11] LABS: ALANINE AMINOTRANSFERASE 23 U/L (12-78); ALBUMIN 1.4 G/DL (3.4-5.0); ALBUMIN/GLOBULIN RATIO 0.4 (1.1-1.5); ALKALINE PHOSPHATASE 59 IU/L (46-116); ANION GAP 3 (8-16); ASPARTATE AMINO TRANSFERASE 14 U/L (10-37); BILIRUBIN,TOTAL 0.3 MG/DL (0.1-1.0); BLOOD UREA NITROGEN 14 MG/DL (7-18); BUN/CREATININE RATIO 31.1 (5.4-32.0); C-REACTIVE PROTEIN 7.71 MG/DL (0.0-0.5); CALCIUM 7.4 MG/DL (8.5-10.1); CHLORIDE 105 MMOL/L (99-107); CREATININE 0.45 MG/DL (0.60-1.10); GLUCOSE 199 MG/DL (70-104); LACTATE DEHYDROGENASE 269 U/L (85-227); MAGNESIUM 2.3 MG/DL (1.5-2.4); PHOSPHORUS 3.6 MG/DL (2.3-4.5); POTASSIUM 3.8 MMOL/L (3.5-5.1); SODIUM 146 MMOL/L (135-145); TOTAL CARBON DIOXIDE 37.7 MMOL/L (24-32); TOTAL PROTEIN 4.7 G/DL (6.4-8.2); eGFR > 90 ML/MIN
[2021-08-01] MEDS: propofol 1000mg/100ml bottle 100 ML IV SCH ×4 (03:14→22:42)
[2021-08-01] MEDS: midazolam 100mg in NS 100ml 100 ML IV PRN ×4 (03:15→20:52)
[2021-08-01] MEDS: VANCOmycin 1250MG/NS 250ml Bag 250 ML IV SCH ×2 (03:38→10:13)
[2021-08-01] MEDS: POTASSIUM BICARB 20meq eff tab 20 MEQ TABLET.EFF OGT PRN (04:58)
[2021-08-01] MEDS: docusate sodium 100mg/10ml UD cup OGT SCH ×2 (07:38→20:31)
[2021-08-01] MEDS: furosemide 40mg/4ml inj IV SCH ×2 (07:38→20:24)
[2021-08-01] MEDS: methylPREDNISolone sod succ 125mg/2ml vial IV SCH ×2 (07:38→16:21)
[2021-08-01] MEDS: cefepime inj 2 GM in dextrose 5%-water 100 ML IV SCH ×2 (07:39→16:24)
[2021-08-01] MEDS: pantoprazole IV 40 MG in dextrose 5%-water 100 ML IV SCH (07:39)
[2021-08-01] MEDS: enoxaparin 80mg/0.8ml syringe SUBCUT SCH ×2 (07:39→20:30)
[2021-08-01] MEDS ORDERED: VANCOMYCIN LEVEL IV ONE (09:30)
[2021-08-01] MEDS ORDERED: acetaZOLAMIDE IV 500mg inj IV ONE (11:40)
[2021-08-01] MEDS ORDERED: acetaZOLAMIDE IV 500mg inj IV SCH (11:40)
--- NOTE | 2021-08-01 14:34 | NUR ---
PATIENT SUPINED ON ROTOPRONE AT 1430.
[2021-08-01 14:42] LABS: ABG BASE EXCESS 8.9 mmol/L (-2.0-2.0); ABG HCO3 36.6 mmol/L (22.0-26.0); ABG OXYGEN SATURATION 84.3 % (94-97); ABG PO2 (T) 50.6 mmHg (75.0-100.0); ALLEN'S TEST POSITIVE; FCOHb 0.1 % (0.0-3.9); FMetHb 0.3 % (0.0-1.5); PATIENT TEMPERATURE 37.3; PEEP 12 cm H2O; RESPIRATORY RATE 22 b/min; TIDAL VOLUME 400 mL
--- NOTE | 2021-08-01 15:00 | NUR ---
Abg done after supine per md prone patient back immediately.
[2021-08-01] MEDS: insulin glargine (Lantus) pen - multi-dose SQ SCH (20:17)
[2021-08-02] VITALS (24 sets, daily range): BP systolic 90–121; BP diastolic 47–77
[2021-08-02] MEDS: cefepime inj 2 GM in dextrose 5%-water 100 ML IV SCH ×4 (00:26→23:57)
[2021-08-02] MEDS: methylPREDNISolone sod succ 125mg/2ml vial IV SCH ×4 (00:28→23:57)
[2021-08-02] MEDS: mineral oil/petrolatum ophthal oint EACHEYE SCH ×4 (02:03→20:31)
[2021-08-02] MEDS: midazolam 100mg in NS 100ml 100 ML IV PRN ×5 (02:03→22:22)
[2021-08-02] MEDS: propofol 1000mg/100ml bottle 100 ML IV SCH ×5 (02:09→20:32)
[2021-08-02 03:13] LABS: ABG BASE EXCESS 6.4 mmol/L (-2.0-2.0); ABG HCO3 32.6 mmol/L (22.0-26.0); ABG OXYGEN SATURATION 95.1 % (94-97); ABG PCO2 (T) 53.2 mmHg (35.0-48.0); ABG PO2 (T) 79.1 mmHg (75.0-100.0); ALLEN'S TEST POSITIVE; FCOHb 0.8 % (0.0-3.9); FMetHb 0.2 % (0.0-1.5); FO2Hb 94.1 % (94-97); PATIENT TEMPERATURE 37.4; PEEP 12 cm H2O; RESPIRATORY RATE 26 b/min; TIDAL VOLUME 400 mL; TOTAL HEMOGLOBIN 14.8 G/dl (14.0-18.0)
[2021-08-02 03:23] LABS: BASOPHILS % (AUTO) 0.3 % (0-1); EOSINOPHILS % (AUTO) 0 % (0-6); HEMATOCRIT 41.5 % (42.0-52.0); HEMOGLOBIN 13.5 g/dl (14.0-17.9); LYMPHOCYTES # (AUTO) 0.6 X10'3 (1.1-4.8); LYMPHOCYTES % (AUTO) 4.3 % (21-51); MEAN CORPUSCULAR HEMOGLOBIN 28.9 PG (27.0-31.0); MEAN CORPUSCULAR HGB CONC 32.6 g/dL (33.0-36.5); MEAN CORPUSCULAR VOLUME 88.7 FL (78-98); MEAN PLATELET VOLUME 9.4 FL (7.4-10.4); MONOCYTES # (AUTO) 0.9 X10'3 (0-0.9); MONOCYTES % (AUTO) 6.7 % (2-12); NEUTROPHILS # (AUTO) 11.8 X10'3 (1.8-7.7); NEUTROPHILS % (AUTO) 88.7 % (42-75); PLATELET COUNT 305 X10'3 (140-440); RED BLOOD COUNT 4.68 X10'6 (4.70-6.10); RED CELL DISTRIBUTION WIDTH 14.5 % (11.5-14.5); WHITE BLOOD COUNT 13.3 X10'3 (4.5-11.0)
[2021-08-02 03:35] LABS: ANION GAP 0 (8-16); BLOOD UREA NITROGEN 18 MG/DL (7-18); CALCIUM 7.6 MG/DL (8.5-10.1); CHLORIDE 105 MMOL/L (99-107); CREATININE 0.45 MG/DL (0.60-1.10); GLUCOSE 227 MG/DL (70-104); POTASSIUM 3.9 MMOL/L (3.5-5.1); SODIUM 139 MMOL/L (135-145); TOTAL CARBON DIOXIDE 33.8 MMOL/L (24-32); eGFR > 90 ML/MIN
[2021-08-02 03:36] LABS: ALANINE AMINOTRANSFERASE 17 U/L (12-78); ALBUMIN 1.4 G/DL (3.4-5.0); ALBUMIN/GLOBULIN RATIO 0.4 (1.1-1.5); ALKALINE PHOSPHATASE 55 IU/L (46-116); ASPARTATE AMINO TRANSFERASE 10 U/L (10-37); BILIRUBIN,TOTAL 0.2 MG/DL (0.1-1.0); C-REACTIVE PROTEIN 3.75 MG/DL (0.0-0.5); LACTATE DEHYDROGENASE 253 U/L (85-227); MAGNESIUM 2.4 MG/DL (1.5-2.4); PHOSPHORUS 3.7 MG/DL (2.3-4.5); TOTAL PROTEIN 4.7 G/DL (6.4-8.2)
[2021-08-02] MEDS: insulin regular, human U-100 3ml vial - multi-dose SQ SCH ×4 (03:58→19:55)
[2021-08-02 04:06] LABS: D-DIMER 1.16 MG/L FEU (0-0.50)
[2021-08-02] MEDS: dexmedetomidin/NS 400mcg/100ml 100 ML IV SCH ×2 (06:19→15:45)
[2021-08-02] MEDS: NORepinephrine 8mg/ 250ml NS 250 ML IV SCH ×3 (07:01→20:33)
[2021-08-02] MEDS: fentaNYL/PF inj 2,500 MCG in normal saline 250ml IV soln 200 ML IV PRN ×3 (07:16→22:45)
[2021-08-02] MEDS: enoxaparin 80mg/0.8ml syringe SUBCUT SCH ×2 (07:17→20:10)
[2021-08-02] MEDS: pantoprazole IV 40 MG in dextrose 5%-water 100 ML IV SCH (07:17)
[2021-08-02] MEDS: furosemide 40mg/4ml inj IV SCH ×2 (07:17→20:06)
[2021-08-02] MEDS: docusate sodium 100mg/10ml UD cup OGT SCH ×2 (07:17→20:12)
--- NOTE | 2021-08-02 13:20 | NUR ---
Received call from friend Ida requesting update, updated on current patient status and answered all questions.
[2021-08-02] MEDS ORDERED: VANCOMYCIN LEVEL IV ONE (17:30)
[2021-08-02] MEDS: insulin glargine (Lantus) pen - multi-dose SQ SCH (19:56)
[2021-08-03] VITALS (24 sets, daily range): BP systolic 92–135; BP diastolic 51–90
[2021-08-03] MEDS: mineral oil/petrolatum ophthal oint EACHEYE SCH ×4 (02:06→20:29)
[2021-08-03] MEDS: insulin regular, human U-100 3ml vial - multi-dose SQ SCH ×4 (02:12→20:04)
[2021-08-03 03:05] LABS: BASOPHILS % (AUTO) 0.2 % (0-1); EOSINOPHILS % (AUTO) 0.1 % (0-6); HEMATOCRIT 39.6 % (42.0-52.0); LYMPHOCYTES # (AUTO) 0.6 X10'3 (1.1-4.8); LYMPHOCYTES % (AUTO) 4.4 % (21-51); MEAN CORPUSCULAR HEMOGLOBIN 29.3 PG (27.0-31.0); MEAN CORPUSCULAR HGB CONC 32.8 g/dL (33.0-36.5); MEAN CORPUSCULAR VOLUME 89.1 FL (78-98); MEAN PLATELET VOLUME 9.2 FL (7.4-10.4); MONOCYTES # (AUTO) 1.2 X10'3 (0-0.9); MONOCYTES % (AUTO) 8.1 % (2-12); NEUTROPHILS # (AUTO) 12.6 X10'3 (1.8-7.7); NEUTROPHILS % (AUTO) 87.2 % (42-75); PLATELET COUNT 269 X10'3 (140-440); RED BLOOD COUNT 4.44 X10'6 (4.70-6.10); RED CELL DISTRIBUTION WIDTH 14.5 % (11.5-14.5); WHITE BLOOD COUNT 14.4 X10'3 (4.5-11.0)
[2021-08-03 03:12] LABS: ABG BASE EXCESS 12.3 mmol/L (-2.0-2.0); ABG HCO3 38.8 mmol/L (22.0-26.0); ABG OXYGEN SATURATION 93.1 % (94-97); ABG PCO2 (T) 58.7 mmHg (35.0-48.0); ABG PO2 (T) 67.4 mmHg (75.0-100.0); ALLEN'S TEST POSITIVE; FCOHb 0.3 % (0.0-3.9); FMetHb 0.4 % (0.0-1.5); FO2Hb 92.4 % (94-97); PATIENT TEMPERATURE 37.8; PEEP 12 cm H2O; RESPIRATORY RATE 26 b/min; TIDAL VOLUME 400 mL
[2021-08-03 03:14] LABS: D-DIMER 0.98 MG/L FEU (0-0.50)
[2021-08-03 03:20] LABS: ALANINE AMINOTRANSFERASE 16 U/L (12-78); ALBUMIN 1.2 G/DL (3.4-5.0); ALBUMIN/GLOBULIN RATIO 0.4 (1.1-1.5); ALKALINE PHOSPHATASE 46 IU/L (46-116); ANION GAP 3 (8-16); ASPARTATE AMINO TRANSFERASE 13 U/L (10-37); BILIRUBIN,TOTAL 0.2 MG/DL (0.1-1.0); BLOOD UREA NITROGEN 17 MG/DL (7-18); BUN/CREATININE RATIO 40.5 (5.4-32.0); C-REACTIVE PROTEIN 3.25 MG/DL (0.0-0.5); CALCIUM 6.6 MG/DL (8.5-10.1); CHLORIDE 106 MMOL/L (99-107); CREATININE 0.42 MG/DL (0.60-1.10); GLUCOSE 214 MG/DL (70-104); LACTATE DEHYDROGENASE 269 U/L (85-227); MAGNESIUM 2.1 MG/DL (1.5-2.4); PHOSPHORUS 2.9 MG/DL (2.3-4.5); POTASSIUM 3.5 MMOL/L (3.5-5.1); SODIUM 142 MMOL/L (135-145); TOTAL CARBON DIOXIDE 33.3 MMOL/L (24-32); TOTAL PROTEIN 4.4 G/DL (6.4-8.2); eGFR > 90 ML/MIN
[2021-08-03] MEDS: midazolam 100mg in NS 100ml 100 ML IV PRN ×5 (03:33→20:56)
[2021-08-03] MEDS: dexmedetomidin/NS 400mcg/100ml 100 ML IV SCH ×2 (04:40→16:23)
[2021-08-03] MEDS: fentaNYL/PF inj 2,500 MCG in normal saline 250ml IV soln 200 ML IV PRN ×2 (07:05→14:33)
[2021-08-03] MEDS: pantoprazole IV 40 MG in dextrose 5%-water 100 ML IV SCH (07:10)
[2021-08-03] MEDS: methylPREDNISolone sod succ 125mg/2ml vial IV SCH ×2 (07:16→15:15)
[2021-08-03] MEDS: docusate sodium 100mg/10ml UD cup OGT SCH ×2 (07:16→20:21)
[2021-08-03] MEDS: enoxaparin 80mg/0.8ml syringe SUBCUT SCH ×2 (07:16→20:28)
[2021-08-03] MEDS: furosemide 40mg/4ml inj IV SCH ×2 (07:16→20:18)
[2021-08-03] MEDS: cefepime inj 2 GM in dextrose 5%-water 100 ML IV SCH ×2 (07:16→15:14)
[2021-08-03] MEDS: lactulose 20gm/30ml cup OGT PRN (07:16)
[2021-08-03] MEDS: propofol 1000mg/100ml bottle 100 ML IV SCH ×4 (07:17→18:58)
--- NOTE | 2021-08-03 09:29 | NUR ---
Reassessment: Pt remains intubated on rotoprone bed and tolerating TF at goal rate with GRV WNL. Propofol rate remains the same at this time, no adjustments to nutrition recommendations. LBM 08/01, with a rectal tube in place though no documentation of stool output with the exception of 200 mL on 07/31. Pt receiving routine and PRN bowel care. Will continue to follow. Recommendations: 1) Given Propofol rate of 22.32 mL/hr (589 kcal/day), continuous Vital AF with goal rate of 70 mL/hr to provide 1680 mL total volume/day, 2016 kcal, 126 g protein, and 1362 mL water 2) Monitor for adjustments in Propofol rate and adjust TF as appropriate 3) IF Propofol is discontinued, resume continuous Vital AF with goal rate of 85 mL/hr to provide 2040 mL total volume/day, 2448 kcal, 153 g protein, and 1654 mL water 4) Additional 200 mL water flush Q4H per MD; monitor serum Na 5) Prealbumin q Thursday/ 6) Daily scaled weights 7) Routine bowel care; previous 7 days constipation 8) PO diet advancement to CHO controlled as medically indicated following extubation; consider BSS with ST prior to PO diet advancement 9) DM education once stable following extubation and official DM dx by physician; A1c 10.1% with no PMH DM in EMR Addendum: 08/03/21 at [address] Amended: Links added.
[2021-08-03] MEDS: NORepinephrine 8mg/ 250ml NS 250 ML IV SCH ×2 (10:02→13:20)
[2021-08-03] MEDS: VANCOmycin 1250MG/NS 250ml Bag 250 ML IV SCH (15:16)
[2021-08-03] MEDS: acetaminophen 325mg/10.15ml oral unit dose solution OGT PRN (15:21)
--- NOTE | 2021-08-03 16:00 | NUR ---
[facility] called with reference # [id number]; patient does not qualify.
--- NOTE | 2021-08-03 16:35 | NUR ---
[facility] called per family request
[2021-08-03] MEDS ORDERED: VECuronium br 10mg inj. IV ONE (17:55)
--- NOTE | 2021-08-03 18:24 | NUR ---
Problems reprioritized. Patient report given, questions answered & plan of care reviewed with Jose BOWEN.
[2021-08-03] MEDS: insulin glargine (Lantus) pen - multi-dose SQ SCH (20:05)
[2021-08-03] MEDS: lactobacillus rhamnosus 10,000 MMU CELLS/CAPSULE PO SCH (20:20)
[2021-08-03] MEDS: CISatracurium besylate inj. 100 MG in normal saline 100ml IV soln 90 ML IV PRN (20:46)
[2021-08-04] VITALS (24 sets, daily range): BP systolic 93–122; BP diastolic 48–80
[2021-08-04] MEDS: cefepime inj 2 GM in dextrose 5%-water 100 ML IV SCH ×3 (00:45→15:32)
[2021-08-04] MEDS: methylPREDNISolone sod succ 125mg/2ml vial IV SCH ×3 (00:58→15:32)
[2021-08-04] MEDS: VANCOmycin 1250MG/NS 250ml Bag 250 ML IV SCH ×5 (01:31→21:49)
[2021-08-04] MEDS: mineral oil/petrolatum ophthal oint EACHEYE SCH ×4 (02:04→20:05)
[2021-08-04] MEDS: midazolam 100mg in NS 100ml 100 ML IV PRN ×5 (02:04→20:37)
[2021-08-04] MEDS: propofol 1000mg/100ml bottle 100 ML IV SCH ×7 (02:04→21:34)
[2021-08-04 02:25] LABS: ABG HCO3 37.4 mmol/L (22.0-26.0); ABG OXYGEN SATURATION 91.9 % (94-97); ABG PCO2 (T) 67.7 mmHg (35.0-48.0); ABG PO2 (T) 69.1 mmHg (75.0-100.0); ALLEN'S TEST POSITIVE; FCOHb 0.5 % (0.0-3.9); FMetHb 0.4 % (0.0-1.5); FO2Hb 91.1 % (94-97); PATIENT TEMPERATURE 37.2; PEEP 12 cm H2O; RESPIRATORY RATE 26 b/min; TIDAL VOLUME 400 mL; TOTAL HEMOGLOBIN 15.7 G/dl (14.0-18.0)
[2021-08-04] MEDS: insulin regular, human U-100 3ml vial - multi-dose SQ SCH ×4 (02:36→20:54)
[2021-08-04 03:00] LABS: BASOPHILS % (AUTO) 0.2 % (0-1); EOSINOPHILS % (AUTO) 0.1 % (0-6); HEMATOCRIT 43.2 % (42.0-52.0); HEMOGLOBIN 14.2 g/dl (14.0-17.9); LYMPHOCYTES # (AUTO) 1.2 X10'3 (1.1-4.8); LYMPHOCYTES % (AUTO) 6.9 % (21-51); MEAN CORPUSCULAR HEMOGLOBIN 29.2 PG (27.0-31.0); MEAN CORPUSCULAR HGB CONC 32.9 g/dL (33.0-36.5); MEAN CORPUSCULAR VOLUME 88.8 FL (78-98); MEAN PLATELET VOLUME 9.4 FL (7.4-10.4); MONOCYTES # (AUTO) 1.6 X10'3 (0-0.9); NEUTROPHILS # (AUTO) 15.2 X10'3 (1.8-7.7); NEUTROPHILS % (AUTO) 83.8 % (42-75); PLATELET COUNT 231 X10'3 (140-440); RED BLOOD COUNT 4.86 X10'6 (4.70-6.10); RED CELL DISTRIBUTION WIDTH 14.5 % (11.5-14.5); WHITE BLOOD COUNT 18.1 X10'3 (4.5-11.0)
[2021-08-04 03:07] LABS: D-DIMER 1.11 MG/L FEU (0-0.50)
[2021-08-04 03:10] LABS: ALANINE AMINOTRANSFERASE 17 U/L (12-78); ALBUMIN 1.4 G/DL (3.4-5.0); ALBUMIN/GLOBULIN RATIO 0.4 (1.1-1.5); ALKALINE PHOSPHATASE 56 IU/L (46-116); ANION GAP 2 (8-16); ASPARTATE AMINO TRANSFERASE 17 U/L (10-37); BILIRUBIN,TOTAL 0.3 MG/DL (0.1-1.0); BLOOD UREA NITROGEN 17 MG/DL (7-18); BUN/CREATININE RATIO 35.4 (5.4-32.0); C-REACTIVE PROTEIN 12.74 MG/DL (0.0-0.5); CALCIUM 7.2 MG/DL (8.5-10.1); CHLORIDE 106 MMOL/L (99-107); CREATININE 0.48 MG/DL (0.60-1.10); GLUCOSE 144 MG/DL (70-104); LACTATE DEHYDROGENASE 444 U/L (85-227); MAGNESIUM 2.4 MG/DL (1.5-2.4); PHOSPHORUS 3.6 MG/DL (2.3-4.5); POTASSIUM 3.7 MMOL/L (3.5-5.1); SODIUM 146 MMOL/L (135-145); TOTAL CARBON DIOXIDE 38.3 MMOL/L (24-32); TOTAL PROTEIN 4.9 G/DL (6.4-8.2); eGFR > 90 ML/MIN
[2021-08-04] MEDS: CISatracurium besylate inj. 100 MG in normal saline 100ml IV soln 90 ML IV PRN ×3 (03:30→16:59)
[2021-08-04] MEDS: dexmedetomidin/NS 400mcg/100ml 100 ML IV SCH ×2 (04:06→15:30)
--- NOTE | 2021-08-04 07:04 | NUR ---
Patient in room CICU 2008. I have received report from Jose BOWEN and had the opportunity to ask questions and assume patient care.
[2021-08-04] MEDS: furosemide 40mg/4ml inj IV SCH ×2 (07:51→20:06)
[2021-08-04] MEDS: lactobacillus rhamnosus 10,000 MMU CELLS/CAPSULE PO SCH ×2 (07:51→20:07)
[2021-08-04] MEDS: docusate sodium 100mg/10ml UD cup OGT SCH ×2 (07:51→20:06)
[2021-08-04] MEDS: enoxaparin 80mg/0.8ml syringe SUBCUT SCH ×2 (07:52→20:07)
[2021-08-04] MEDS: pantoprazole IV 40 MG in dextrose 5%-water 100 ML IV SCH (07:52)
[2021-08-04] MEDS: NORepinephrine 8mg/ 250ml NS 250 ML IV SCH ×2 (09:19→18:42)
[2021-08-04] MEDS ORDERED: VANCOMYCIN LEVEL IV ONE (09:30)
[2021-08-04] MEDS: acetaminophen 325mg/10.15ml oral unit dose solution OGT PRN (10:41)
--- NOTE | 2021-08-04 11:40 | NUR ---
Dr Richards wants to try and turn patient to the right while prone, putting the left lung down and right lung up.
[2021-08-04] MEDS: fentaNYL/PF inj 2,500 MCG in normal saline 250ml IV soln 200 ML IV PRN ×2 (12:53→20:34)
--- NOTE | 2021-08-04 13:13 | NUR ---
Attempted to turn patient to the right while in the prone position, putting the left lung down and the right lung up. Patient desaturated quickly to 84%. Stopped the turn and put patient back to the left lung up and right lung down position while in the prone position. Informed Dr Richards of the attempt, he is aware and would like to just keep the turn to the left for now
[2021-08-04] MEDS ORDERED: LORazepam 1 MG tablet PO PRN (18:00)
--- NOTE | 2021-08-04 18:20 | NUR ---
Problems reprioritized. Patient report given, questions answered & plan of care reviewed with Trinidad BOWEN.
--- NOTE | 2021-08-04 18:29 | NUR ---
Patient in room CICU 2008. I have received report from Katie Durbin and had the opportunity to ask questions and assume patient care.
[2021-08-04] MEDS: insulin glargine (Lantus) pen - multi-dose SQ SCH (20:53)
[2021-08-05] VITALS (24 sets, daily range): BP systolic 88–128; BP diastolic 43–77
[2021-08-05] MEDS: CISatracurium besylate inj. 100 MG in normal saline 100ml IV soln 90 ML IV PRN ×5 (00:16→23:12)
[2021-08-05] MEDS: methylPREDNISolone sod succ 125mg/2ml vial IV SCH ×4 (00:23→23:47)
[2021-08-05] MEDS: cefepime inj 2 GM in dextrose 5%-water 100 ML IV SCH ×3 (00:23→15:21)
[2021-08-05] MEDS: midazolam 100mg in NS 100ml 100 ML IV PRN ×5 (00:48→21:44)
[2021-08-05] MEDS: propofol 1000mg/100ml bottle 100 ML IV SCH ×6 (00:48→21:20)
--- NOTE | 2021-08-05 00:58 | NUR ---
Patient is unable to tolerate being supine or rotation on his right side, bed bath, oral care, catheter care and rectal tube assessment completed while bed in motion and patient remains in prone position on rotorest bed.
[2021-08-05] MEDS: mineral oil/petrolatum ophthal oint EACHEYE SCH ×4 (02:00→18:36)
[2021-08-05] MEDS: insulin regular, human U-100 3ml vial - multi-dose SQ SCH ×4 (02:06→20:39)
[2021-08-05 03:11] LABS: ABG BASE EXCESS 14.9 mmol/L (-2.0-2.0); ABG HCO3 41.1 mmol/L (22.0-26.0); ABG OXYGEN SATURATION 86.6 % (94-97); ABG PO2 (T) 51.3 mmHg (75.0-100.0); ALLEN'S TEST POSITIVE; FCOHb 0.4 % (0.0-3.9); FMetHb 0.1 % (0.0-1.5); FO2Hb 86.2 % (94-97); PATIENT TEMPERATURE 37.9; PEEP 15 cm H2O; RESPIRATORY RATE 30 b/min; TIDAL VOLUME 450 mL; TOTAL HEMOGLOBIN 14.4 G/dl (14.0-18.0)
[2021-08-05] MEDS: dexmedetomidin/NS 400mcg/100ml 100 ML IV SCH (03:17)
[2021-08-05 03:36] LABS: D-DIMER 0.98 MG/L FEU (0-0.50)
[2021-08-05 03:42] LABS: ALBUMIN 0.9 G/DL (3.4-5.0); ALBUMIN/GLOBULIN RATIO 0.3 (1.1-1.5); ALKALINE PHOSPHATASE 43 IU/L (46-116); BILIRUBIN,TOTAL 0.4 MG/DL (0.1-1.0); BLOOD UREA NITROGEN 12 MG/DL (7-18); BUN/CREATININE RATIO 33.3 (5.4-32.0); C-REACTIVE PROTEIN 7.77 MG/DL (0.0-0.5); CHLORIDE 100 MMOL/L (99-107); CREATININE 0.36 MG/DL (0.60-1.10); GLUCOSE 177 MG/DL (70-104); MAGNESIUM 1.2 MG/DL (1.5-2.4); PREALBUMIN 16.5 MG/DL (19-36); TOTAL CARBON DIOXIDE 34.4 MMOL/L (24-32); TOTAL PROTEIN 3.8 G/DL (6.4-8.2); eGFR > 90 ML/MIN
[2021-08-05] MEDS: VANCOmycin 1250MG/NS 250ml Bag 250 ML IV SCH ×4 (03:45→22:02)
[2021-08-05] MEDS: fentaNYL/PF inj 2,500 MCG in normal saline 250ml IV soln 200 ML IV PRN ×3 (03:46→19:09)
[2021-08-05 03:54] LABS: ANION GAP 4 (8-16); PHOSPHORUS 1.9 MG/DL (2.3-4.5); POTASSIUM 3.1 MMOL/L (3.5-5.1); SODIUM 138 MMOL/L (135-145)
[2021-08-05 03:56] LABS: ALANINE AMINOTRANSFERASE 6 U/L (12-78); ASPARTATE AMINO TRANSFERASE 18 U/L (10-37); LACTATE DEHYDROGENASE 367 U/L (85-227)
[2021-08-05 04:16] LABS: CALCIUM 5.7 MG/DL (8.5-10.1)
[2021-08-05] MEDS ORDERED: potassium phosphate inj 30 MMOL in normal saline 500ml IV soln 500 ML IV ONE (04:40)
[2021-08-05] MEDS ORDERED: magnesium 4gm in 100ml NS 100 ML IV ONE (04:40)
[2021-08-05] MEDS: NORepinephrine 8mg/ 250ml NS 250 ML IV SCH ×2 (04:58→16:31)
[2021-08-05 05:05] LABS: EOSINOPHILS % (AUTO) 0.1 % (0-6); MEAN CORPUSCULAR VOLUME 90.1 FL (78-98); WHITE BLOOD COUNT 14.6 X10'3 (4.5-11.0)
[2021-08-05 05:07] LABS: BASOPHILS # (AUTO) 0.2 X10'3 (0-0.2); BASOPHILS % (AUTO) 1.1 % (0-1); HEMATOCRIT 34.1 % (42.0-52.0); HEMOGLOBIN 11.3 g/dl (14.0-17.9); LYMPHOCYTES # (AUTO) 1.2 X10'3 (1.1-4.8); LYMPHOCYTES % (AUTO) 8.5 % (21-51); MEAN CORPUSCULAR HEMOGLOBIN 29.9 PG (27.0-31.0); MEAN CORPUSCULAR HGB CONC 33.2 g/dL (33.0-36.5); MEAN PLATELET VOLUME 10.3 FL (7.4-10.4); MONOCYTES # (AUTO) 0.9 X10'3 (0-0.9); NEUTROPHILS # (AUTO) 12.3 X10'3 (1.8-7.7); NEUTROPHILS % (AUTO) 84.3 % (42-75); PLATELET COUNT 164 X10'3 (140-440); RED BLOOD COUNT 3.78 X10'6 (4.70-6.10); RED CELL DISTRIBUTION WIDTH 15.2 % (11.5-14.5)
[2021-08-05] MEDS: CALCIUM GLUC 1gm/50ml NACL,iso 50 ML IV SCH ×3 (05:51→06:58)
--- NOTE | 2021-08-05 06:25 | NUR ---
Problems reprioritized. Patient report given, questions answered & plan of care reviewed with ANDRÉS Durbin.
--- NOTE | 2021-08-05 07:02 | NUR ---
Patient in room CICU 2008. I have received report from Trinidad BOWEN and had the opportunity to ask questions and assume patient care.
[2021-08-05] MEDS: lactobacillus rhamnosus 10,000 MMU CELLS/CAPSULE PO SCH (07:51)
[2021-08-05] MEDS: furosemide 40mg/4ml inj IV SCH ×2 (07:51→19:46)
[2021-08-05] MEDS: enoxaparin 80mg/0.8ml syringe SUBCUT SCH ×2 (07:51→19:47)
[2021-08-05] MEDS: docusate sodium 100mg/10ml UD cup OGT SCH ×2 (07:51→19:47)
[2021-08-05] MEDS: pantoprazole IV 40 MG in dextrose 5%-water 100 ML IV SCH (07:52)
--- NOTE | 2021-08-05 07:53 | NUR ---
0800 lacrilube unable to administer, patient on rotoprone bed unable to supine patient to administer med
[2021-08-05 07:56] LABS: ABG BASE EXCESS 10.6 mmol/L (-2.0-2.0); ABG HCO3 36.2 mmol/L (22.0-26.0); ABG OXYGEN SATURATION 88.4 % (94-97); ABG PCO2 (T) 53.2 mmHg (35.0-48.0); ABG PO2 (T) 53.1 mmHg (75.0-100.0); ALLEN'S TEST POSITIVE; FCOHb 0.1 % (0.0-3.9); FMetHb 0.4 % (0.0-1.5); PATIENT TEMPERATURE 37.7; PEEP 15 cm H2O; RESPIRATORY RATE 30 b/min; TIDAL VOLUME 450 mL; TOTAL HEMOGLOBIN 14.2 G/dl (14.0-18.0)
--- NOTE | 2021-08-05 11:57 | NUR ---
F/u 08/05: Noted pt Propofol at 27.9ml/hr providing additional 737 kcals this AM. TF recs below adjusted to avoid overfeeding on vent; MD and RN notified. Still able to meet minimum estimated protein needs at this time. Recommendations: 1) Given Propofol rate of 27.9mL/hr (737 kcal/day), continuous Vital AF with goal rate of 65mL/hr to provide 1560mL total volume/day, 1872 kcal, 117g protein, and 1264 mL water 2) Monitor for adjustments in Propofol rate and adjust TF as appropriate 3) IF Propofol is discontinued, resume continuous Vital AF with goal rate of 85 mL/hr to provide 2040 mL total volume/day, 2448 kcal, 153 g protein, and 1654 mL water 4) Additional 200 mL water flush Q4H per MD; monitor serum Na 5) Prealbumin q Thursday/ 6) Daily scaled weights 7) Routine bowel care; previous 7 days constipation 8) PO diet advancement to CHO controlled as medically indicated following extubation; consider BSS with ST prior to PO diet advancement 9) DM education once stable following extubation and official DM dx by physician; A1c 10.1% with no PMH DM in EMR Addendum: 08/05/21 at [address] Amended: Links added.
--- NOTE | 2021-08-05 13:43 | NUR ---
UNABLE TO ADMINISTER LACRILUBE, PATIENT IS IN PRONE POSITION AND UNABLE TO SUPINE TO ADMINISTER THE LACRILUBE
[2021-08-05 14:56] LABS: TOTAL HEMOGLOBIN 13.8 G/dl (14.0-18.0)
[2021-08-05] MEDS: acetaminophen 325mg/10.15ml oral unit dose solution OGT PRN (15:33)
--- NOTE | 2021-08-05 18:15 | NUR ---
Problems reprioritized. Patient report given, questions answered & plan of care reviewed with Trinidad BOWEN.
--- NOTE | 2021-08-05 18:30 | NUR ---
Patient in room CICU 2008. I have received report from ANDRÉS Durbin and had the opportunity to ask questions and assume patient care.
[2021-08-05] MEDS: lactobacillus rhamnosus 10,000 MMU CELLS/CAPSULE OGT SCH (19:47)
[2021-08-05] MEDS: insulin glargine (Lantus) pen - multi-dose SQ SCH (21:13)
[2021-08-05 21:14] LABS: ALBUMIN 1.1 G/DL (3.4-5.0); BLOOD UREA NITROGEN 20 MG/DL (7-18); TOTAL CARBON DIOXIDE 30.1 MMOL/L (24-32); eGFR > 90 ML/MIN
[2021-08-05 21:28] LABS: ANION GAP 19 (8-16); CHLORIDE 96 MMOL/L (99-107); GLUCOSE 269 MG/DL (70-104); POTASSIUM 3.4 MMOL/L (3.5-5.1); SODIUM 145 MMOL/L (135-145)
[2021-08-05 21:35] LABS: CALCIUM 5.5 MG/DL (8.5-10.1)
[2021-08-05 22:07] LABS: PHOSPHORUS 2.9 MG/DL (2.3-4.5)
--- NOTE | 2021-08-05 22:20 | NUR ---
Phone call to Dr. Juarez Re: Calcium 5.5. MD calculated corrected calcium to be 7.8. Verbal order for 2 gram Calcium Chloride administered via PICC.
[2021-08-05] MEDS ORDERED: calcium chloride inj. 2,000 MG in normal saline 100ml IV soln 100 ML IV ONE (22:25)
[2021-08-05] MEDS: POTASSIUM BICARB 20meq eff tab 20 MEQ TABLET.EFF OGT PRN (23:33)
[2021-08-06] VITALS (24 sets, daily range): BP systolic 80–130; BP diastolic 34–89
[2021-08-06] MEDS: cefepime inj 2 GM in dextrose 5%-water 100 ML IV SCH ×3 (00:44→15:49)
[2021-08-06] MEDS: propofol 1000mg/100ml bottle 100 ML IV SCH ×7 (00:47→20:21)
[2021-08-06] MEDS: mineral oil/petrolatum ophthal oint EACHEYE SCH ×4 (02:00→19:36)
[2021-08-06] MEDS: midazolam 100mg in NS 100ml 100 ML IV PRN ×5 (02:29→22:46)
[2021-08-06] MEDS: insulin regular, human U-100 3ml vial - multi-dose SQ SCH ×4 (02:37→20:54)
[2021-08-06] MEDS: fentaNYL/PF inj 2,500 MCG in normal saline 250ml IV soln 200 ML IV PRN ×3 (02:49→17:24)
[2021-08-06 02:51] LABS: ABG BASE EXCESS 12.4 mmol/L (-2.0-2.0); ABG HCO3 37.8 mmol/L (22.0-26.0); ABG OXYGEN SATURATION 89.6 % (94-97); ABG PCO2 (T) 52.8 mmHg (35.0-48.0); ABG PO2 (T) 57.7 mmHg (75.0-100.0); ALLEN'S TEST POSITIVE; FCOHb 0.3 % (0.0-3.9); FMetHb 0.4 % (0.0-1.5); PATIENT TEMPERATURE 37.9; PEEP 15 cm H2O; RESPIRATORY RATE 30 b/min; TIDAL VOLUME 500 mL; TOTAL HEMOGLOBIN 14.3 G/dl (14.0-18.0)
[2021-08-06 03:17] LABS: D-DIMER 1.02 MG/L FEU (0-0.50)
[2021-08-06] MEDS: VANCOmycin 1250MG/NS 250ml Bag 250 ML IV SCH ×4 (03:54→21:04)
[2021-08-06] MEDS: NORepinephrine 8mg/ 250ml NS 250 ML IV SCH ×2 (03:55→16:45)
[2021-08-06 04:11] LABS: BASOPHILS # (AUTO) 0.1 X10'3 (0-0.2); BASOPHILS % (AUTO) 0.4 % (0-1); EOSINOPHILS % (AUTO) 0.1 % (0-6); HEMATOCRIT 41.2 % (42.0-52.0); HEMOGLOBIN 13.5 g/dl (14.0-17.9); LYMPHOCYTES # (AUTO) 1.4 X10'3 (1.1-4.8); LYMPHOCYTES % (AUTO) 6.8 % (21-51); MEAN CORPUSCULAR HEMOGLOBIN 28.8 PG (27.0-31.0); MEAN CORPUSCULAR HGB CONC 32.7 g/dL (33.0-36.5); MEAN CORPUSCULAR VOLUME 88.1 FL (78-98); MEAN PLATELET VOLUME 9.3 FL (7.4-10.4); MONOCYTES % (AUTO) 4.8 % (2-12); NEUTROPHILS # (AUTO) 17.6 X10'3 (1.8-7.7); NEUTROPHILS % (AUTO) 87.9 % (42-75); PLATELET COUNT 272 X10'3 (140-440); RED BLOOD COUNT 4.67 X10'6 (4.70-6.10); RED CELL DISTRIBUTION WIDTH 14.9 % (11.5-14.5)
[2021-08-06 04:14] LABS: ALANINE AMINOTRANSFERASE 13 U/L (12-78); ALBUMIN 1.4 G/DL (3.4-5.0); ALBUMIN/GLOBULIN RATIO 0.5 (1.1-1.5); ALKALINE PHOSPHATASE 55 IU/L (46-116); ANION GAP 0 (8-16); ASPARTATE AMINO TRANSFERASE 13 U/L (10-37); BILIRUBIN,TOTAL 0.3 MG/DL (0.1-1.0); BLOOD UREA NITROGEN 19 MG/DL (7-18); BUN/CREATININE RATIO 45.2 (5.4-32.0); CALCIUM 8.4 MG/DL (8.5-10.1); CHLORIDE 102 MMOL/L (99-107); CREATININE 0.42 MG/DL (0.60-1.10); GLUCOSE 230 MG/DL (70-104); LACTATE DEHYDROGENASE 362 U/L (85-227); MAGNESIUM 2.1 MG/DL (1.5-2.4); PHOSPHORUS 3.5 MG/DL (2.3-4.5); POTASSIUM 4.2 MMOL/L (3.5-5.1); SODIUM 138 MMOL/L (135-145); TOTAL CARBON DIOXIDE 35.9 MMOL/L (24-32); TOTAL PROTEIN 4.5 G/DL (6.4-8.2); TRIGLYCERIDES 206 MG/DL (20-135); eGFR > 90 ML/MIN
--- NOTE | 2021-08-06 05:05 | NUR ---
Rounds with Dr. Tapia, reviewed plan of care. labs and ABG. to make changes to free water to every 8 hours. MD to order Vancomycin through labs.
[2021-08-06] MEDS: CISatracurium besylate inj. 100 MG in normal saline 100ml IV soln 90 ML IV PRN ×2 (05:27→13:09)
--- NOTE | 2021-08-06 06:15 | NUR ---
Problems reprioritized. Patient report given, questions answered & plan of care reviewed with Queenie Durbin RN.
--- NOTE | 2021-08-06 06:35 | NUR ---
Patient in room CICU 2008. I have received report from Trinidad BOWEN and had the opportunity to ask questions and assume patient care.
[2021-08-06] MEDS: polyethylene glycol 3350 17gm powd pack OGT PRN (07:50)
[2021-08-06] MEDS: lactobacillus rhamnosus 10,000 MMU CELLS/CAPSULE OGT SCH ×2 (07:50→19:37)
[2021-08-06] MEDS: enoxaparin 80mg/0.8ml syringe SUBCUT SCH ×2 (07:50→19:36)
[2021-08-06] MEDS: methylPREDNISolone sod succ 125mg/2ml vial IV SCH ×2 (07:50→15:50)
[2021-08-06] MEDS: docusate sodium 100mg/10ml UD cup OGT SCH ×2 (07:50→19:36)
[2021-08-06] MEDS: furosemide 40mg/4ml inj IV SCH ×2 (07:50→19:36)
[2021-08-06] MEDS: pantoprazole IV 40 MG in dextrose 5%-water 100 ML IV SCH (07:53)
[2021-08-06] MEDS: micafungin inj 100 MG in normal saline 100ml IV soln 100 ML IV SCH (07:54)
--- NOTE | 2021-08-06 13:15 | NUR ---
0800 and 1400 lacirilube, non administered, patient in dependant prone position unable to administer
[2021-08-06] MEDS ORDERED: furosemide 10 MG/1 ML 10ml inj IV ONE (17:15)
--- NOTE | 2021-08-06 17:50 | NUR ---
Patients sister bedside, she spoke with Dr. Cr, he answered all her questions and concerns
--- NOTE | 2021-08-06 18:21 | NUR ---
Problems reprioritized. Patient report given, questions answered & plan of care reviewed with Mac RN.
--- NOTE | 2021-08-06 19:30 | NUR ---
Pt's sister at bedside
[2021-08-06] MEDS: insulin glargine (Lantus) pen - multi-dose SQ SCH (20:55)
--- NOTE | 2021-08-06 23:44 | NUR ---
[facility] called for update on patient.
[2021-08-07] VITALS (25 sets, daily range): BP systolic 83–130; BP diastolic 43–85
[2021-08-07] MEDS: methylPREDNISolone sod succ 125mg/2ml vial IV SCH ×3 (00:23→15:41)
[2021-08-07] MEDS: cefepime inj 2 GM in dextrose 5%-water 100 ML IV SCH ×3 (00:23→15:41)
[2021-08-07] MEDS: CISatracurium besylate inj. 100 MG in normal saline 100ml IV soln 90 ML IV PRN ×4 (01:38→21:35)
[2021-08-07] MEDS: fentaNYL/PF inj 2,500 MCG in normal saline 250ml IV soln 200 ML IV PRN ×4 (01:39→23:18)
[2021-08-07] MEDS: mineral oil/petrolatum ophthal oint EACHEYE SCH ×4 (02:00→20:26)
[2021-08-07] MEDS: insulin regular, human U-100 3ml vial - multi-dose SQ SCH ×3 (02:16→14:10)
[2021-08-07] MEDS: midazolam 100mg in NS 100ml 100 ML IV PRN ×5 (02:24→21:54)
[2021-08-07 02:57] LABS: BASOPHILS # (AUTO) 0.1 X10'3 (0-0.2); BASOPHILS % (AUTO) 0.3 % (0-1); EOSINOPHILS # (AUTO) 0.1 X10'3 (0-0.9); EOSINOPHILS % (AUTO) 0.6 % (0-6); HEMATOCRIT 39.9 % (42.0-52.0); HEMOGLOBIN 13.2 g/dl (14.0-17.9); LYMPHOCYTES # (AUTO) 1.5 X10'3 (1.1-4.8); LYMPHOCYTES % (AUTO) 7.2 % (21-51); MEAN CORPUSCULAR HEMOGLOBIN 28.9 PG (27.0-31.0); MEAN CORPUSCULAR VOLUME 87.6 FL (78-98); MEAN PLATELET VOLUME 9.5 FL (7.4-10.4); MONOCYTES # (AUTO) 1.3 X10'3 (0-0.9); MONOCYTES % (AUTO) 6.1 % (2-12); NEUTROPHILS # (AUTO) 17.8 X10'3 (1.8-7.7); NEUTROPHILS % (AUTO) 85.8 % (42-75); PLATELET COUNT 273 X10'3 (140-440); RED BLOOD COUNT 4.55 X10'6 (4.70-6.10); RED CELL DISTRIBUTION WIDTH 14.7 % (11.5-14.5); WHITE BLOOD COUNT 20.8 X10'3 (4.5-11.0)
[2021-08-07] MEDS: propofol 1000mg/100ml bottle 100 ML IV SCH ×6 (03:08→22:17)
[2021-08-07] MEDS: VANCOmycin 1250MG/NS 250ml Bag 250 ML IV SCH ×3 (03:09→15:40)
[2021-08-07 03:10] LABS: D-DIMER 1.18 MG/L FEU (0-0.50)
[2021-08-07 03:17] LABS: ALANINE AMINOTRANSFERASE 17 U/L (12-78); ALBUMIN 1.5 G/DL (3.4-5.0); ALBUMIN/GLOBULIN RATIO 0.5 (1.1-1.5); ALKALINE PHOSPHATASE 54 IU/L (46-116); ANION GAP 3 (8-16); ASPARTATE AMINO TRANSFERASE 15 U/L (10-37); BILIRUBIN,TOTAL 0.4 MG/DL (0.1-1.0); BLOOD UREA NITROGEN 23 MG/DL (7-18); BUN/CREATININE RATIO 52.3 (5.4-32.0); CALCIUM 7.5 MG/DL (8.5-10.1); CHLORIDE 100 MMOL/L (99-107); CREATININE 0.44 MG/DL (0.60-1.10); GLUCOSE 269 MG/DL (70-104); POTASSIUM 3.6 MMOL/L (3.5-5.1); SODIUM 140 MMOL/L (135-145); TOTAL CARBON DIOXIDE 37.3 MMOL/L (24-32); TOTAL PROTEIN 4.7 G/DL (6.4-8.2); eGFR > 90 ML/MIN
[2021-08-07 03:18] LABS: LACTATE DEHYDROGENASE 420 U/L (85-227); PHOSPHORUS 4.1 MG/DL (2.3-4.5)
[2021-08-07] MEDS ORDERED: POTASSIUM BICARB 20meq eff tab 20 MEQ TABLET.EFF PO ONE (04:55)
[2021-08-07 05:23] LABS: ABG BASE EXCESS 9.7 mmol/L (-2.0-2.0); ABG HCO3 35.2 mmol/L (22.0-26.0); ABG PCO2 (T) 49.6 mmHg (35.0-48.0); ABG PO2 (T) 65.9 mmHg (75.0-100.0); ALLEN'S TEST Modified; FCOHb 0.2 % (0.0-3.9); FMetHb 0.3 % (0.0-1.5); FO2Hb 92.5 % (94-97); PATIENT TEMPERATURE 36.8; PEEP 15 cm H2O; RESPIRATORY RATE 30 b/min; TIDAL VOLUME 500 mL; TOTAL HEMOGLOBIN 14.6 G/dl (14.0-18.0)
[2021-08-07 06:50] LABS: C-REACTIVE PROTEIN 1.97 MG/DL (0.0-0.5)
[2021-08-07] MEDS: furosemide 40mg/4ml inj IV SCH ×2 (07:34→20:20)
[2021-08-07] MEDS: docusate sodium 100mg/10ml UD cup OGT SCH ×2 (07:34→20:24)
[2021-08-07] MEDS: lactobacillus rhamnosus 10,000 MMU CELLS/CAPSULE OGT SCH ×2 (07:34→20:24)
[2021-08-07] MEDS: pantoprazole IV 40 MG in dextrose 5%-water 100 ML IV SCH (07:35)
[2021-08-07] MEDS: micafungin inj 100 MG in normal saline 100ml IV soln 100 ML IV SCH (07:35)
[2021-08-07] MEDS: enoxaparin 80mg/0.8ml syringe SUBCUT SCH ×2 (07:49→20:22)
--- NOTE | 2021-08-07 08:30 | NUR ---
Dr. Santo rounded on the patient and stated that he would like to trial a supine turn to assess patient's skin and eyes. Prior to supine patient was trialed on turning with left lung down, which has previously been hard on the patient's oxygenation. Patient turned left and right while proned and tolerated well with very little decrease in oxygen saturation.
--- NOTE | 2021-08-07 09:00 | NUR ---
Patient prepared for supine, back hatches closed, lines and ETT secured, patient supined. Patient placed in Reverse Trendelenburg and patient was able to maintain a saturation of 92%-94%. Ice placed over eyes to help with edema. Patient tolerated well.
--- NOTE | 2021-08-07 10:52 | NUR ---
Patient prepared to return to the prone position. Hermes tightened, ice removed from face and face plate returned and secured. Patient was then proned safely. Once in the prone position the back latches were opened and dirty linin was removed. Patient saturation increased to 96-97%. Patient tolerated well.
--- NOTE | 2021-08-07 11:29 | NUR ---
Reassessment: Pt remains intubated and tolerating TF at goal rate with GRV WNL. Propofol rate remains the same at this time, no adjustments to nutrition recommendations. LBM 08/04 with 300 mL stool output per I&O. Pt receiving routine and PRN bowel care. Will continue to follow. Recommendations: 1) Given Propofol rate of 27.9mL/hr (737 kcal/day), continuous Vital AF with goal rate of 65mL/hr to provide 1560mL total volume/day, 1872 kcal, 117g protein, and 1264 mL water 2) Monitor for adjustments in Propofol rate and adjust TF as appropriate 3) IF Propofol is discontinued, resume continuous Vital AF with goal rate of 85 mL/hr to provide 2040 mL total volume/day, 2448 kcal, 153 g protein, and 1654 mL water 4) Additional 200 mL water flush Q4H per MD; monitor serum Na 5) Prealbumin q Thursday/ 6) Daily scaled weights 7) Routine bowel care; previous 7 days constipation 8) PO diet advancement to CHO controlled as medically indicated following extubation; consider BSS with ST prior to PO diet advancement 9) DM education once stable following extubation and official DM dx by physician; A1c 10.1% with no PMH DM in EMR Addendum: 08/07/21 at [address] Amended: Links added.
[2021-08-07] MEDS: NORepinephrine 8mg/ 250ml NS 250 ML IV SCH (14:55)
--- NOTE | 2021-08-07 16:45 | NUR ---
Patient prepared for supine, back hatches closed, lines and ETT secured, patient supined. Patient placed in Reverse Trendelenburg and patient was able to maintain a saturation of 92%-94%. Face plate removed and ice placed over eyes to help with edema. Patient tolerated well.
[2021-08-07] MEDS: acetaminophen 325mg/10.15ml oral unit dose solution OGT PRN (17:47)
--- NOTE | 2021-08-07 17:52 | NUR ---
Patient prepared to return to the prone position. Hermes tightened, ice removed from face and face plate returned and secured. Patient was then proned safely. Once in the prone position the back latches were opened and dirty linin was removed. Patient saturation increased to 94-95%. Patient tolerated well.
--- NOTE | 2021-08-07 19:00 | NUR ---
Patient in room CICU 2008. I have received report from Rosaura BOWEN and had the opportunity to ask questions and assume patient care.
[2021-08-07] MEDS: insulin glargine (Lantus) pen - multi-dose SQ SCH (19:55)
[2021-08-08] VITALS (27 sets, daily range): BP systolic 95–139; BP diastolic 47–97
[2021-08-08] MEDS: methylPREDNISolone sod succ 125mg/2ml vial IV SCH ×3 (00:32→15:59)
[2021-08-08] MEDS: cefepime inj 2 GM in dextrose 5%-water 100 ML IV SCH (00:32)
[2021-08-08] MEDS: NORepinephrine 8mg/ 250ml NS 250 ML IV SCH ×3 (00:39→17:41)
[2021-08-08] MEDS: propofol 1000mg/100ml bottle 100 ML IV SCH ×8 (01:53→22:25)
[2021-08-08] MEDS: CISatracurium besylate inj. 100 MG in normal saline 100ml IV soln 90 ML IV PRN ×5 (01:54→17:19)
[2021-08-08] MEDS: mineral oil/petrolatum ophthal oint EACHEYE SCH ×4 (02:16→20:00)
[2021-08-08] MEDS: insulin regular, human U-100 3ml vial - multi-dose SQ SCH ×4 (02:30→19:50)
[2021-08-08] MEDS: midazolam 100mg in NS 100ml 100 ML IV PRN ×5 (02:37→20:33)
[2021-08-08 02:56] LABS: BASOPHILS # (AUTO) 0.1 X10'3 (0-0.2); BASOPHILS % (AUTO) 0.5 % (0-1); EOSINOPHILS # (AUTO) 0.1 X10'3 (0-0.9); EOSINOPHILS % (AUTO) 0.3 % (0-6); HEMATOCRIT 38.9 % (42.0-52.0); HEMOGLOBIN 12.7 g/dl (14.0-17.9); LYMPHOCYTES # (AUTO) 0.9 X10'3 (1.1-4.8); LYMPHOCYTES % (AUTO) 3.2 % (21-51); MEAN CORPUSCULAR HEMOGLOBIN 28.6 PG (27.0-31.0); MEAN CORPUSCULAR HGB CONC 32.7 g/dL (33.0-36.5); MEAN CORPUSCULAR VOLUME 87.4 FL (78-98); MEAN PLATELET VOLUME 8.8 FL (7.4-10.4); MONOCYTES # (AUTO) 1.2 X10'3 (0-0.9); MONOCYTES % (AUTO) 4.1 % (2-12); NEUTROPHILS # (AUTO) 26.9 X10'3 (1.8-7.7); NEUTROPHILS % (AUTO) 91.9 % (42-75); PLATELET COUNT 140 X10'3 (140-440); RED BLOOD COUNT 4.45 X10'6 (4.70-6.10)
[2021-08-08 03:03] LABS: D-DIMER 2.74 MG/L FEU (0-0.50)
[2021-08-08 03:07] LABS: ALANINE AMINOTRANSFERASE 26 U/L (12-78); ALBUMIN 1.4 G/DL (3.4-5.0); ALBUMIN/GLOBULIN RATIO 0.4 (1.1-1.5); ALKALINE PHOSPHATASE 70 IU/L (46-116); ANION GAP 0 (8-16); ASPARTATE AMINO TRANSFERASE 18 U/L (10-37); BILIRUBIN,TOTAL 0.5 MG/DL (0.1-1.0); BLOOD UREA NITROGEN 20 MG/DL (7-18); BUN/CREATININE RATIO 47.6 (5.4-32.0); CHLORIDE 99 MMOL/L (99-107); CREATININE 0.42 MG/DL (0.60-1.10); GLUCOSE 150 MG/DL (70-104); LACTATE DEHYDROGENASE 522 U/L (85-227); MAGNESIUM 1.8 MG/DL (1.5-2.4); PHOSPHORUS 3.6 MG/DL (2.3-4.5); POTASSIUM 3.5 MMOL/L (3.5-5.1); PREALBUMIN 32.2 MG/DL (19-36); SODIUM 134 MMOL/L (135-145); TOTAL PROTEIN 4.7 G/DL (6.4-8.2); eGFR > 90 ML/MIN
[2021-08-08 03:08] LABS: WHITE BLOOD COUNT 29.2 X10'3 (4.5-11.0)
[2021-08-08 03:47] LABS: ABG BASE EXCESS 3.7 mmol/L (-2.0-2.0); ABG HCO3 29.8 mmol/L (22.0-26.0); ABG OXYGEN SATURATION 90.7 % (94-97); ABG PCO2 (T) 51.6 mmHg (35.0-48.0); ABG PO2 (T) 61.4 mmHg (75.0-100.0); ALLEN'S TEST POSITIVE; FCOHb 0.5 % (0.0-3.9); FMetHb 0.3 % (0.0-1.5); PATIENT TEMPERATURE 37.6; PEEP 15 cm H2O; RESPIRATORY RATE 30 b/min; TIDAL VOLUME 500 mL; TOTAL HEMOGLOBIN 14.3 G/dl (14.0-18.0)
[2021-08-08 03:56] LABS: TOTAL CELLS COUNTED 100
[2021-08-08 03:57] LABS: PLATELET ESTIMATE DECREASED
[2021-08-08] MEDS: fentaNYL/PF inj 2,500 MCG in normal saline 250ml IV soln 200 ML IV PRN ×2 (07:22→14:30)
[2021-08-08] MEDS: enoxaparin 80mg/0.8ml syringe SUBCUT SCH ×2 (09:07→20:00)
[2021-08-08] MEDS: lactobacillus rhamnosus 10,000 MMU CELLS/CAPSULE OGT SCH ×2 (09:09→22:02)
[2021-08-08] MEDS: furosemide 40mg/4ml inj IV SCH ×2 (09:09→22:03)
[2021-08-08] MEDS: docusate sodium 100mg/10ml UD cup OGT SCH ×2 (09:09→22:02)
[2021-08-08] MEDS: pantoprazole IV 40 MG in dextrose 5%-water 100 ML IV SCH (09:19)
[2021-08-08] MEDS: cefepime 2g/NS 100ml ADVANTAGE 100 ML IV SCH ×2 (09:38→15:58)
--- NOTE | 2021-08-08 10:30 | NUR ---
Upon arrival this AM, patient was in the supine position, it appeared that the PICC line had been pulled out quite a bit, however, all lumens were still drawing blood. Dr. Hanson was informed and he planned to placed a central line. Patient was cleaned and prepared. placed Right IJ successfully. All drips were changed out including tubing and switched to the central line.
[2021-08-08] MEDS: micafungin inj 100 MG in normal saline 100ml IV soln 100 ML IV SCH (10:32)
--- NOTE | 2021-08-08 11:18 | NUR ---
F/u: Serum Na down to 134 MMOL/L today, water flushes to decrease to 200 Q12H per MD. RN to update EMR. Addendum: 08/08/21 at [address] Amended: Links added.
[2021-08-08 15:45] LABS: C DIFF SPECIMEN=DIARRHEA? ACCEPTABLE; C DIFFICILE TOXINS A&B NEGATIVE (Neg)
--- NOTE | 2021-08-08 16:30 | NUR ---
Patient prepared to return to the prone position. Hermes tightened, ice removed from face and face plate returned and secured. Patient was then proned safely. Once in the prone position the back latches were opened and dirty linin was removed. Patient saturation increased to 97%. Patient tolerated well.
[2021-08-08] MEDS: insulin glargine (Lantus) pen - multi-dose SQ SCH (19:51)
[2021-08-09] VITALS (24 sets, daily range): BP systolic 98–130; BP diastolic 42–84
[2021-08-09] MEDS: methylPREDNISolone sod succ 125mg/2ml vial IV SCH ×3 (01:34→16:05)
[2021-08-09] MEDS: cefepime 2g/NS 100ml ADVANTAGE 100 ML IV SCH ×3 (01:34→16:05)
[2021-08-09] MEDS: midazolam 100mg in NS 100ml 100 ML IV PRN ×5 (01:56→21:38)
[2021-08-09] MEDS: mineral oil/petrolatum ophthal oint EACHEYE SCH ×4 (02:04→19:38)
[2021-08-09] MEDS: insulin regular, human U-100 3ml vial - multi-dose SQ SCH ×4 (02:11→20:12)
[2021-08-09 02:54] LABS: BASOPHILS # (AUTO) 0.1 X10'3 (0-0.2); BASOPHILS % (AUTO) 0.2 % (0-1); EOSINOPHILS % (AUTO) 0.2 % (0-6); HEMATOCRIT 34.6 % (42.0-52.0); HEMOGLOBIN 11.6 g/dl (14.0-17.9); LYMPHOCYTES # (AUTO) 1.4 X10'3 (1.1-4.8); LYMPHOCYTES % (AUTO) 5.7 % (21-51); MEAN CORPUSCULAR HEMOGLOBIN 29.4 PG (27.0-31.0); MEAN CORPUSCULAR HGB CONC 33.7 g/dL (33.0-36.5); MEAN CORPUSCULAR VOLUME 87.1 FL (78-98); MEAN PLATELET VOLUME 9.6 FL (7.4-10.4); MONOCYTES % (AUTO) 3.8 % (2-12); NEUTROPHILS # (AUTO) 22.5 X10'3 (1.8-7.7); NEUTROPHILS % (AUTO) 90.1 % (42-75); PLATELET COUNT 191 X10'3 (140-440); RED BLOOD COUNT 3.97 X10'6 (4.70-6.10); RED CELL DISTRIBUTION WIDTH 15.3 % (11.5-14.5); WHITE BLOOD COUNT 24.9 X10'3 (4.5-11.0)
[2021-08-09 03:04] LABS: D-DIMER 1.15 MG/L FEU (0-0.50)
[2021-08-09 03:06] LABS: ALANINE AMINOTRANSFERASE 24 U/L (12-78); ALBUMIN 1.4 G/DL (3.4-5.0); ALBUMIN/GLOBULIN RATIO 0.4 (1.1-1.5); ALKALINE PHOSPHATASE 79 IU/L (46-116); ANION GAP 4 (8-16); ASPARTATE AMINO TRANSFERASE 24 U/L (10-37); BILIRUBIN,TOTAL 0.3 MG/DL (0.1-1.0); BLOOD UREA NITROGEN 18 MG/DL (7-18); BUN/CREATININE RATIO 54.5 (5.4-32.0); CALCIUM 7.6 MG/DL (8.5-10.1); CHLORIDE 103 MMOL/L (99-107); CREATININE 0.33 MG/DL (0.60-1.10); GLUCOSE 111 MG/DL (70-104); LACTATE DEHYDROGENASE 639 U/L (85-227); MAGNESIUM 2.3 MG/DL (1.5-2.4); PHOSPHORUS 2.7 MG/DL (2.3-4.5); POTASSIUM 3.4 MMOL/L (3.5-5.1); SODIUM 144 MMOL/L (135-145); TOTAL CARBON DIOXIDE 36.7 MMOL/L (24-32); eGFR > 90 ML/MIN
[2021-08-09] MEDS: CISatracurium besylate inj. 100 MG in normal saline 100ml IV soln 90 ML IV PRN ×6 (03:34→21:30)
[2021-08-09 03:37] LABS: ABG BASE EXCESS 12.8 mmol/L (-2.0-2.0); ABG HCO3 38.3 mmol/L (22.0-26.0); ABG OXYGEN SATURATION 91.7 % (94-97); ABG PO2 (T) 62.4 mmHg (75.0-100.0); ALLEN'S TEST POSITIVE; FCOHb 0.3 % (0.0-3.9); FMetHb 0.2 % (0.0-1.5); FO2Hb 91.2 % (94-97); PATIENT TEMPERATURE 37.1; PEEP 15 cm H2O; RESPIRATORY RATE 30 b/min; TIDAL VOLUME 500 mL; TOTAL HEMOGLOBIN 12.4 G/dl (14.0-18.0)
[2021-08-09 03:39] LABS: TOTAL CELLS COUNTED 100
[2021-08-09 03:40] LABS: ANISOCYTOSIS 1+; PLATELET ESTIMATE NORMAL
[2021-08-09] MEDS: potassium Cl 20mEq/100mL bag 100 ML IV PRN ×2 (04:22→05:59)
[2021-08-09] MEDS: fentaNYL/PF inj 2,500 MCG in normal saline 250ml IV soln 200 ML IV PRN ×3 (05:32→20:49)
[2021-08-09] MEDS: propofol 1000mg/100ml bottle 100 ML IV SCH ×5 (05:33→21:57)
[2021-08-09] MEDS: NORepinephrine 8mg/ 250ml NS 250 ML IV SCH ×2 (06:00→18:44)
--- NOTE | 2021-08-09 07:00 | NUR ---
X-ray came to take imaging of the patient's chest. Once plate was in place, the back hatches were closed and locked and patient was turned supine. X-ray was taken, patient's chest tube securement was check, lung, heart, and bowel sounds auscultated, pupils checked, all of this taking about 5 minutes. Patient then began desaturating to 75%. By the time patient was secured in the Rotoprone bed again patient's saturation reached 69%. Patient was returned to the prone position, back hatches opened, and patient slowly recovered to 88-89% over a period of about 15 minutes.
[2021-08-09] MEDS: pantoprazole IV 40 MG in normal saline 100ml IV soln 100 ML IV SCH (07:06)
[2021-08-09] MEDS: furosemide 40mg/4ml inj IV SCH ×2 (07:07→20:07)
[2021-08-09] MEDS: lactobacillus rhamnosus 10,000 MMU CELLS/CAPSULE OGT SCH ×2 (07:07→20:08)
[2021-08-09] MEDS: docusate sodium 100mg/10ml UD cup OGT SCH ×2 (07:07→20:08)
[2021-08-09] MEDS: enoxaparin 80mg/0.8ml syringe SUBCUT SCH ×2 (07:08→20:08)
[2021-08-09] MEDS: micafungin inj 100 MG in normal saline 100ml IV soln 100 ML IV SCH (09:12)
--- NOTE | 2021-08-09 09:45 | NUR ---
Patient's family at bedside. Primary nurse described the events of the night and how that plays a negative effect on the patient's progress. Family asked what they can expect in the next few hours. Primary nurse explained there is no way to predict what is going to happen. It was explained that the patient having the pneumothorax last night was a step in the wrong direction. Primary nurse also educated the family on what can happen to the body and brain when it goes without sufficient oxygen for a period of time. Family asked what happens after this. Primary nurse replied explained that if there is an after this, there is a large chance for trach and peg as well as a very long road to recovery with probable permanent lung damage. Family asked if there is a chance that he would be back to his normal self. It was explained that it is very unlikely that he will be back to "normal". Family stated an understanding and left shortly after.
--- NOTE | 2021-08-09 10:14 | NUR ---
Patient only tolerating being proned flat or rotated with left lung down, now. Per MD, avoid turning right lung down.
--- NOTE | 2021-08-09 16:11 | NUR ---
Family called wanting an update from the MD. Dr. Santo spoke with family and gave them an update regarding the patient's current status. They asked what more we can do or try in order to save the patient's life. Dr. Santo explained that the only other thing we could try for this patient is ECMO and that we do not have that at this hospital and he further explained that the closest hospital would be [facility] but that the patient would not make the trip, that he would most likely before getting there. Family stated an understanding and said that they would continue praying and asking for a miracle. They are unwilling to change code status or course of action.
--- NOTE | 2021-08-09 18:13 | NUR ---
Problems reprioritized. Patient report given, questions answered & plan of care reviewed with ANDRÉS Valentin.
--- NOTE | 2021-08-09 19:00 | NUR ---
Patient in room CICU 2008. I have received report from Jennie and had the opportunity to ask questions and assume patient care. Per report the MD would not like to supine pt unless his sats increase to the 96-97% range due to being unstable during the dayshift when he was supined. Will evaluate during the shift if this is appropriate.
--- NOTE | 2021-08-09 19:39 | NUR ---
Unable to give lacri-lube. Pt unable to supine at this time. Eyes are shut with mepilex over and face mask covering, unable to get to pt's eyes to give meds or assess pupils at this time.
[2021-08-09] MEDS: insulin glargine (Lantus) pen - multi-dose SQ SCH (20:10)
[2021-08-10] VITALS (25 sets, daily range): BP systolic 101–135; BP diastolic 58–83
[2021-08-10] MEDS: methylPREDNISolone sod succ 125mg/2ml vial IV SCH ×3 (00:23→16:39)
[2021-08-10] MEDS: cefepime 2g/NS 100ml ADVANTAGE 100 ML IV SCH ×3 (00:23→16:40)
--- NOTE | 2021-08-10 00:27 | NUR ---
@ approx 2315 pt began to desat with no noticeable precipitating event. STAT CXR revealed a new RIGHT sided PNEUMOTHORAX. Tele notified, ER MD at bedside to place another Chest tube on the right side. Pt's lowest saturation was 33%, increased to 67% after Chest Tube/SUPINE, increased to 95% when PRONED. Repeat CXR taken showing reexpansion, tele notified by multimedia manager. States he will contact the sister to update her.
[2021-08-10] MEDS: propofol 1000mg/100ml bottle 100 ML IV SCH ×7 (00:37→21:51)
[2021-08-10 01:03] LABS: ABG BASE EXCESS 8.6 mmol/L (-2.0-2.0); ABG HCO3 35.7 mmol/L (22.0-26.0); ABG OXYGEN SATURATION 93.2 % (94-97); ABG PCO2 (T) 61.7 mmHg (35.0-48.0); ALLEN'S TEST POSITIVE; FCOHb 0.1 % (0.0-3.9); FMetHb 0.3 % (0.0-1.5); FO2Hb 92.8 % (94-97); PATIENT TEMPERATURE 36.7; PEEP 15 cm H2O; RESPIRATORY RATE 30 b/min; TIDAL VOLUME 425 mL; TOTAL HEMOGLOBIN 11.9 G/dl (14.0-18.0)
[2021-08-10] MEDS: mineral oil/petrolatum ophthal oint EACHEYE SCH ×4 (01:06→19:48)
[2021-08-10] MEDS: insulin regular, human U-100 3ml vial - multi-dose SQ SCH ×4 (02:00→20:47)
--- NOTE | 2021-08-10 02:17 | NUR ---
Chest tubes were getting intermittently compressed with rotational therapy. Repositioned tubes, decreased rotation to 45 degrees. Left chest tube back to normal function (intermittent air leak), right chest tube now with no air leak present. MD is aware the chest tube was reported as being far in possibly blocking distal lumen. hospital wellness coordinator to call ER to see if the MD who placed the tube can pull it back a little. Multiple attempts made to resolve the issue by nursing, but unable to.
[2021-08-10] MEDS: CISatracurium besylate inj. 100 MG in normal saline 100ml IV soln 90 ML IV PRN ×6 (02:21→22:35)
[2021-08-10] MEDS: midazolam 100mg in NS 100ml 100 ML IV PRN ×5 (02:29→22:34)
[2021-08-10 03:00] LABS: BASOPHILS % (AUTO) 0.1 % (0-1); EOSINOPHILS % (AUTO) 0 % (0-6); HEMATOCRIT 32.5 % (42.0-52.0); HEMOGLOBIN 10.8 g/dl (14.0-17.9); LYMPHOCYTES # (AUTO) 0.5 X10'3 (1.1-4.8); LYMPHOCYTES % (AUTO) 2.5 % (21-51); MEAN CORPUSCULAR HEMOGLOBIN 29.5 PG (27.0-31.0); MEAN CORPUSCULAR HGB CONC 33.3 g/dL (33.0-36.5); MEAN CORPUSCULAR VOLUME 88.6 FL (78-98); MEAN PLATELET VOLUME 9.8 FL (7.4-10.4); MONOCYTES # (AUTO) 0.4 X10'3 (0-0.9); MONOCYTES % (AUTO) 2.2 % (2-12); NEUTROPHILS # (AUTO) 18.5 X10'3 (1.8-7.7); NEUTROPHILS % (AUTO) 95.2 % (42-75); PLATELET COUNT 180 X10'3 (140-440); RED BLOOD COUNT 3.67 X10'6 (4.70-6.10); RED CELL DISTRIBUTION WIDTH 15.8 % (11.5-14.5); WHITE BLOOD COUNT 19.4 X10'3 (4.5-11.0)
[2021-08-10 03:02] LABS: D-DIMER 1.18 MG/L FEU (0-0.50)
[2021-08-10 03:08] LABS: ALANINE AMINOTRANSFERASE 27 U/L (12-78); ALBUMIN 1.3 G/DL (3.4-5.0); ALBUMIN/GLOBULIN RATIO 0.3 (1.1-1.5); ALKALINE PHOSPHATASE 149 IU/L (46-116); ANION GAP 2 (8-16); ASPARTATE AMINO TRANSFERASE 23 U/L (10-37); BILIRUBIN,TOTAL 0.3 MG/DL (0.1-1.0); BLOOD UREA NITROGEN 22 MG/DL (7-18); BUN/CREATININE RATIO 53.7 (5.4-32.0); CALCIUM 7.6 MG/DL (8.5-10.1); CHLORIDE 105 MMOL/L (99-107); CREATININE 0.41 MG/DL (0.60-1.10); GLUCOSE 206 MG/DL (70-104); LACTATE DEHYDROGENASE 597 U/L (85-227); MAGNESIUM 2.4 MG/DL (1.5-2.4); PHOSPHORUS 3.8 MG/DL (2.3-4.5); POTASSIUM 3.9 MMOL/L (3.5-5.1); SODIUM 143 MMOL/L (135-145); TOTAL CARBON DIOXIDE 36.3 MMOL/L (24-32); TOTAL PROTEIN 5.1 G/DL (6.4-8.2); eGFR > 90 ML/MIN
--- NOTE | 2021-08-10 04:26 | NUR ---
ER arrived at approx 0330 to readjust RIGHT chest tube, pulled it out about 2-3cm. Air leak returned to right chest tube. Upon proning the patient the air leak stopped. Multiple attempts made to place tubing in such a manner that the air leak continued while prone, unable to do so. Patient has air leaks in both chest tubes when supine, so patient was supined and rotating 45 degrees to right, 15 degrees to left, sats 88-94% and maintains air leaks in both chest tubes so patient left on those rotational settings.
[2021-08-10] MEDS: fentaNYL/PF inj 2,500 MCG in normal saline 250ml IV soln 200 ML IV PRN ×3 (04:29→20:29)
--- NOTE | 2021-08-10 05:08 | NUR ---
Dr. Zamorano did morning Tele rounds, updated on all happenings of the night and current therapy settings for vent/drips/bed/chest tubes. No changes in current therapies. Addendum: 08/10/21 at 0513 by Kan Mendez RN Sats 85-87%. Supine position. 40degree right turn, 0degree left turn. aware of all this.
--- NOTE | 2021-08-10 06:18 | NUR ---
Problems reprioritized. Patient report given, questions answered & plan of care reviewed with Debbie BOWEN.
--- NOTE | 2021-08-10 06:30 | NUR ---
Patient in room CICU 2008. I have received report from cassandra and had the opportunity to ask questions and assume patient care.
[2021-08-10] MEDS: furosemide 40mg/4ml inj IV SCH ×2 (07:39→19:49)
[2021-08-10] MEDS: docusate sodium 100mg/10ml UD cup OGT SCH ×2 (07:42→19:49)
[2021-08-10] MEDS: lactobacillus rhamnosus 10,000 MMU CELLS/CAPSULE OGT SCH ×2 (07:42→19:49)
[2021-08-10] MEDS: enoxaparin 80mg/0.8ml syringe SUBCUT SCH ×2 (07:42→19:49)
[2021-08-10] MEDS: micafungin inj 100 MG in normal saline 100ml IV soln 100 ML IV SCH (07:43)
[2021-08-10] MEDS: pantoprazole IV 40 MG in normal saline 100ml IV soln 100 ML IV SCH (07:43)
[2021-08-10] MEDS: NORepinephrine 8mg/ 250ml NS 250 ML IV SCH (07:54)
--- NOTE | 2021-08-10 10:30 | NUR ---
update to md. pt remains rotating supine position r/t compression of chest tubes when prone.even supine- turning degree on rt changed to 20 to 5 as large leaks changed to none. sats 85 to 90%. nimbex turned off per mds request.
--- NOTE | 2021-08-10 11:15 | NUR ---
sats decreasing from 90 to 87 and then to 82%- rr to 36. pt coughed, not opening eyes, sedative boluses given- with outaffect on rr or sat- nimbex restarted.
--- NOTE | 2021-08-10 13:34 | NUR ---
md updated re continued decreased sat and need to restart nimbex- spoke with pts sister by phone when she called- updated as to recent events- wants to wait longer and continue care in case he may get better.- informed he was worse today.
--- NOTE | 2021-08-10 13:44 | NUR ---
sats to 79%- md aware- left and rt degrees to 20. will prone even if cts compressed if sats go back to 70's and see if sats improve.
--- NOTE | 2021-08-10 14:00 | NUR ---
sats to 79 then 84 then to 76%- discussed with dr galdamez- if goes to 70's will try prone, even though ct may be compressed. proned and sats to 91. rt ct compressed
--- NOTE | 2021-08-10 18:30 | NUR ---
Patient in room CICU 2008. I have received report from Debbie Youngblood RN and had the opportunity to ask questions and assume patient care.
--- NOTE | 2021-08-10 19:48 | NUR ---
unable to give lacri-lube, patient in rotoprone bed, unable to supine at this time.
[2021-08-10] MEDS: insulin glargine (Lantus) pen - multi-dose SQ SCH (20:48)
--- NOTE | 2021-08-10 21:22 | NUR ---
Patient continues to be prone in Roto prone bed 30 degree rotation on Left and zero degree rotation on right. Patient is sedated and paralyzed with Nimbex. On ventilator A/C PRVC mode with 100% FiO2, PEEP 15, Tidal volume of 425, Rate of 30. Current oxygen saturation of 89%-90%. Bilateral chest tubes in place to suction at 30 cm water. Lung sounds are present bilaterally. Positive air leak to left chest tube, occasional air leak to right chest tube.
--- NOTE | 2021-08-10 23:19 | NUR ---
Dr. Vaughan called for patient update. Reviewed current ventilator settings, Chest tube air leak to left and none/ rare air leak to right chest tube. Patient currently off Levophed maintaining a MAP in the 80's. SpO2 88-91%. Relayed report from day shift re: events during day shift. Addendum: 08/11/21 at 1821 by Didi Smyth RN Late entry: after reviewing the events of day shift and patients current vital signs. okay with not placing patient supine tonight as long as patient continues to tolerate prone position.
--- NOTE | 2021-08-10 23:31 | NUR ---
Donor network called for update. Current plan of care and vital signs reviewed. Will be calling daily for update.
[2021-08-11] VITALS (23 sets, daily range): BP systolic 91–135; BP diastolic 50–91
[2021-08-11] MEDS: cefepime 2g/NS 100ml ADVANTAGE 100 ML IV SCH ×2 (00:22→08:03)
[2021-08-11] MEDS: methylPREDNISolone sod succ 125mg/2ml vial IV SCH ×2 (00:22→07:24)
[2021-08-11] MEDS: propofol 1000mg/100ml bottle 100 ML IV SCH ×7 (00:27→21:52)
[2021-08-11] MEDS: mineral oil/petrolatum ophthal oint EACHEYE SCH ×4 (02:00→19:31)
[2021-08-11] MEDS: insulin regular, human U-100 3ml vial - multi-dose SQ SCH ×4 (02:13→20:18)
[2021-08-11] MEDS: CISatracurium besylate inj. 100 MG in normal saline 100ml IV soln 90 ML IV PRN ×6 (02:36→23:19)
[2021-08-11] MEDS: midazolam 100mg in NS 100ml 100 ML IV PRN ×4 (03:36→18:23)
[2021-08-11 03:46] LABS: BASOPHILS % (AUTO) 0.3 % (0-1); EOSINOPHILS % (AUTO) 0 % (0-6); HEMOGLOBIN 11.6 g/dl (14.0-17.9); LYMPHOCYTES # (AUTO) 0.6 X10'3 (1.1-4.8); MEAN CORPUSCULAR HEMOGLOBIN 28.9 PG (27.0-31.0); MEAN CORPUSCULAR HGB CONC 32.3 g/dL (33.0-36.5); MEAN CORPUSCULAR VOLUME 89.4 FL (78-98); MONOCYTES # (AUTO) 0.6 X10'3 (0-0.9); MONOCYTES % (AUTO) 4.1 % (2-12); NEUTROPHILS # (AUTO) 13.9 X10'3 (1.8-7.7); NEUTROPHILS % (AUTO) 91.6 % (42-75); PLATELET COUNT 191 X10'3 (140-440); RED BLOOD COUNT 4.02 X10'6 (4.70-6.10); WHITE BLOOD COUNT 15.1 X10'3 (4.5-11.0)
[2021-08-11 03:52] LABS: D-DIMER 0.74 MG/L FEU (0-0.50)
[2021-08-11 03:56] LABS: ABG BASE EXCESS 13.9 mmol/L (-2.0-2.0); ABG HCO3 41.7 mmol/L (22.0-26.0); ABG OXYGEN SATURATION 81.6 % (94-97); ABG PCO2 (T) 67.6 mmHg (35.0-48.0); ALLEN'S TEST POSITIVE; FCOHb 0.5 % (0.0-3.9); FMetHb 0.2 % (0.0-1.5); PATIENT TEMPERATURE 36.5; PEEP 15 cm H2O; RESPIRATORY RATE 30 b/min; TIDAL VOLUME 425 mL; TOTAL HEMOGLOBIN 12.7 G/dl (14.0-18.0)
[2021-08-11 04:04] LABS: ALANINE AMINOTRANSFERASE 26 U/L (12-78); ALBUMIN 1.5 G/DL (3.4-5.0); ALBUMIN/GLOBULIN RATIO 0.4 (1.1-1.5); ALKALINE PHOSPHATASE 128 IU/L (46-116); ANION GAP 2 (8-16); ASPARTATE AMINO TRANSFERASE 17 U/L (10-37); BILIRUBIN,TOTAL 0.3 MG/DL (0.1-1.0); BLOOD UREA NITROGEN 26 MG/DL (7-18); BUN/CREATININE RATIO 83.9 (5.4-32.0); CALCIUM 7.8 MG/DL (8.5-10.1); CHLORIDE 102 MMOL/L (99-107); CREATININE 0.31 MG/DL (0.60-1.10); GLUCOSE 201 MG/DL (70-104); LACTATE DEHYDROGENASE 615 U/L (85-227); MAGNESIUM 2.3 MG/DL (1.5-2.4); PHOSPHORUS 3.4 MG/DL (2.3-4.5); POTASSIUM 4.1 MMOL/L (3.5-5.1); SODIUM 143 MMOL/L (135-145); TOTAL CARBON DIOXIDE 39.4 MMOL/L (24-32); TOTAL PROTEIN 5.4 G/DL (6.4-8.2); eGFR > 90 ML/MIN
[2021-08-11] MEDS: fentaNYL/PF inj 2,500 MCG in normal saline 250ml IV soln 200 ML IV PRN ×3 (04:14→21:53)
--- NOTE | 2021-08-11 04:24 | NUR ---
Rounds with Dr. Bradley. Reviewed current vent settings, lab work and ABG. No changes made at this time. Addendum: 08/11/21 at 1820 by Didi Smyth RN Late entry: reviewed with physician that due to patients condition he was not placed supine during the night and will be waiting for dayshift MD to be at bedside for AM x-ray. MD agreed with plan.
[2021-08-11 04:25] LABS: TOTAL CELLS COUNTED 100
[2021-08-11 04:26] LABS: PLATELET ESTIMATE NORMAL; TOXIC GRANULATION 2+
[2021-08-11 04:31] LABS: LARGE PLATELETS FEW
[2021-08-11 04:32] LABS: ANISOCYTOSIS 1+
--- NOTE | 2021-08-11 06:18 | NUR ---
Problems reprioritized. Patient report given, questions answered & plan of care reviewed with ANDRÉS Kaplan.
--- NOTE | 2021-08-11 06:20 | NUR ---
Patient in room CICU 2008. I have received report from ANDRÉS Abdi and had the opportunity to ask questions and assume patient care.
[2021-08-11] MEDS: pantoprazole IV 40 MG in normal saline 100ml IV soln 100 ML IV SCH (07:23)
[2021-08-11] MEDS: lactobacillus rhamnosus 10,000 MMU CELLS/CAPSULE OGT SCH ×2 (07:23→19:30)
[2021-08-11] MEDS: docusate sodium 100mg/10ml UD cup OGT SCH ×2 (07:23→19:29)
[2021-08-11] MEDS: furosemide 40mg/4ml inj IV SCH ×2 (07:23→19:29)
[2021-08-11] MEDS: enoxaparin 80mg/0.8ml syringe SUBCUT SCH ×2 (07:24→19:30)
--- NOTE | 2021-08-11 08:12 | NUR ---
Reassessment: Pt remains intubated and sedated/paralyzed, tolerating TF at goal rate with GRV WNL. Propofol rate remains the same, 27.9ml/hr at this time, no adjustments to nutrition recommendations. LBM 12/ w/ rectal tube per MD note though no output documented. Pt receiving routine bowel care. Will continue to follow. Recommendations: 1) Given Propofol rate of 27.9mL/hr (737 kcal/day), continuous Vital AF with goal rate of 65mL/hr to provide 1560mL total volume/day, 1872 kcal, 117g protein, and 1264 mL water 2) Monitor for adjustments in Propofol rate and adjust TF as appropriate 3) IF Propofol is discontinued, resume continuous Vital AF with goal rate of 85 mL/hr to provide 2040 mL total volume/day, 2448 kcal, 153 g protein, and 1654 mL water 4) Additional 200 mL water flush Q12H per MD; monitor serum Na 5) Prealbumin q Thursday/ 6) Daily scaled weights 7) Routine bowel care 8) PO diet advancement to CHO controlled as medically indicated following extubation; consider BSS with ST prior to PO diet advancement 9) DM education once stable following extubation and official DM dx by physician; A1c 10.1% with no PMH DM in EMR Addendum: 08/11/21 at [address] Amended: Links added.
[2021-08-11] MEDS: micafungin inj 100 MG in normal saline 100ml IV soln 100 ML IV SCH (08:39)
--- NOTE | 2021-08-11 08:55 | NUR ---
MD asked if Chest xray was need for today due to the fact that patient historically hasn't tolerated being supine. MD stated she would like the chest xray and that she plans to stay bedside incase emergency intervention is needed. With x2 RN, x1 RT and MD bedside patient was prepared for supine. Bed was lowered and back hatches were closed after xray plate was in place. With RN and RT at head of bed and primary RN managing bed controls, the patient was turned into the supine position. Xray was taken and MD reviewed bedside. At this point patient's saturation had only come down to about 88%. After xray as taken patient was prepared to turn back into the prone position to removed the xray plate. Patient's hermes were secured and again with RN and RT at head of bed and primary RN at bed controls, patient was proned. Plate was removed and MD stated she would like the patient to be supine again and to try to maintain a saturation of 88%, if patient did not tolerate then it was okay to prone again. Patient was yet again prepared for supine. Back hatches were locked and secured and with x2 RN and RT present patient was flipped into the supine position at about 0800. Top two hermes and face plate removed, pupils checked and them ice was place to patient's face. Linens changed out. Initially it appeared that patient was saturating at 95% however, that began to decrease quickly to about 87%. patient was placed in reverse Trendelenburg to see if that would help improve saturation. It did not. Patient was given some time to see if he would improve his saturation all the while RN remained bedside. After about 20 minutes patients saturation was sitting at 83%. Pulse oximeter was changed out to verify the reading was correct, it remained the same. Patient was then prepared to put back into the prone position. Patient's bed was lowered and upon lowering patient's saturation decreased to 77%. Ice pack was removed and eye pads placed, face plate replaced and secured. Hermes over chest and abdomen secured. Patient was the saturating at 73%. Patient then proned, back hatches open, and patient placed in reverse Trendelenburg. It took about 10 minutes for patient to recover to 89% and another 10 minutes to recover to 92%.
--- NOTE | 2021-08-11 13:23 | NUR ---
Patient does not seem to be getting his volumes of 425 or greater when turned with left lung down. He is getting volumes of about 340-390. Per Dr. Singer, trial with right lung down and flat. For the past 30 minutes with right lung down patient maintains volumes of about 380-420 which is still not his set volume but better than his left lung down. Oxygen saturation improved to 95-96% with this rotation schedule. Dr. Singer would like to continue attempting supine per protocol and to cut it short if patient's saturation falls below 88%. Dr. Singer asked that we set up a family meeting for tomorrow. Patient's sister was called and she stated that tomorrow at 1230 works well for her and the family. Will consult with case management and coordinate the meeting.
[2021-08-11] MEDS: NORepinephrine 8mg/ 250ml NS 250 ML IV SCH (13:46)
[2021-08-11 14:14] LABS: ABG BASE EXCESS 7.1 mmol/L (-2.0-2.0); ABG HCO3 34.5 mmol/L (22.0-26.0); ABG PCO2 (T) 60.9 mmHg (35.0-48.0); ABG PO2 (T) 39.6 mmHg (75.0-100.0); ALLEN'S TEST Yes; FCOHb 0.7 % (0.0-3.9); FMetHb 0.2 % (0.0-1.5); FO2Hb 76.3 % (94-97); PATIENT TEMPERATURE 36.5; PEEP 15 cm H2O; RESPIRATORY RATE 30 b/min; TIDAL VOLUME 425 mL; TOTAL HEMOGLOBIN 13.4 G/dl (14.0-18.0)
--- NOTE | 2021-08-11 14:18 | NUR ---
Attempted to supine patient again. Back hatches on bed locked and secured, patient turned over into supine position at 1335. Once patient was supined and placed in reverse Trendelenburg patient's oxygen saturation went from 95% to 90%. Five minutes later at 1340 patient's saturation was down to 82%. Patient was then prepared to prone again. By the time patient was prepared for proning (1350) patient's saturation was 81%. Patient continued to desaturate and by 1405 patient was 77%. painting supervisor and RT bedside. Dr. Singer called and she gave orders for a repeat chest xray and an ABG. RT tamela ABG and Xray got here at about 1410. After plate was placed, patient was supined and desaturated to 62%. After xray patient was proned again and finally recovered to 90% at 1420.
[2021-08-11] MEDS: methylPREDNISolone sod succ/PF 40mg inj. IV SCH (16:04)
--- NOTE | 2021-08-11 18:14 | NUR ---
Problems reprioritized. Patient report given, questions answered & plan of care reviewed with ANDRÉS Abdi.
--- NOTE | 2021-08-11 18:18 | NUR ---
Patient in room CICU 2008. I have received report from ANDRÉS Kaplan and had the opportunity to ask questions and assume patient care.
[2021-08-11] MEDS: insulin glargine (Lantus) pen - multi-dose SQ SCH (20:19)
[2021-08-12] VITALS (24 sets, daily range): BP systolic 88–132; BP diastolic 40–89
[2021-08-12] MEDS: midazolam 100mg in NS 100ml 100 ML IV PRN ×6 (00:21→22:45)
[2021-08-12] MEDS: propofol 1000mg/100ml bottle 100 ML IV SCH ×7 (00:22→21:06)
[2021-08-12] MEDS: methylPREDNISolone sod succ/PF 40mg inj. IV SCH ×3 (00:26→16:06)
[2021-08-12] MEDS: insulin regular, human U-100 3ml vial - multi-dose SQ SCH ×4 (01:48→20:03)
[2021-08-12] MEDS: mineral oil/petrolatum ophthal oint EACHEYE SCH ×4 (02:00→19:13)
--- NOTE | 2021-08-12 02:00 | NUR ---
Donor network called for update. Advised of family meeting tomorrow at 1230.
[2021-08-12] MEDS: CISatracurium besylate inj. 100 MG in normal saline 100ml IV soln 90 ML IV PRN ×6 (02:11→21:43)
--- NOTE | 2021-08-12 02:17 | NUR ---
Dr. Zamorano called re: new air leak sound and vibration felt in the tube at the right chest tube insertion site. Air leak to water chamber of atrium present as before - large intermittent. Updated MD of events of dayshift and the order from Dr. Singer to keep patient prone. Unable to get to insertion sites secondary to bed. Tidal volumes 410-426, SpO2 98% on 100% FiO2. Per Dr. Zamorano, continue to monitor, no new orders at this time.
[2021-08-12 02:24] LABS: BASOPHILS # (AUTO) 0.1 X10'3 (0-0.2); BASOPHILS % (AUTO) 0.4 % (0-1); EOSINOPHILS # (AUTO) 0.1 X10'3 (0-0.9); EOSINOPHILS % (AUTO) 0.8 % (0-6); HEMATOCRIT 32.9 % (42.0-52.0); HEMOGLOBIN 10.7 g/dl (14.0-17.9); LYMPHOCYTES # (AUTO) 1.7 X10'3 (1.1-4.8); LYMPHOCYTES % (AUTO) 8.8 % (21-51); MEAN CORPUSCULAR HEMOGLOBIN 28.7 PG (27.0-31.0); MEAN CORPUSCULAR HGB CONC 32.4 g/dL (33.0-36.5); MEAN CORPUSCULAR VOLUME 88.8 FL (78-98); MEAN PLATELET VOLUME 9.6 FL (7.4-10.4); MONOCYTES % (AUTO) 5.2 % (2-12); NEUTROPHILS # (AUTO) 16.4 X10'3 (1.8-7.7); NEUTROPHILS % (AUTO) 84.8 % (42-75); PLATELET COUNT 257 X10'3 (140-440); RED BLOOD COUNT 3.71 X10'6 (4.70-6.10); WHITE BLOOD COUNT 19.3 X10'3 (4.5-11.0)
[2021-08-12 02:38] LABS: D-DIMER 1.01 MG/L FEU (0-0.50)
[2021-08-12 02:43] LABS: ALANINE AMINOTRANSFERASE 22 U/L (12-78); ALBUMIN 1.5 G/DL (3.4-5.0); ALBUMIN/GLOBULIN RATIO 0.5 (1.1-1.5); ALKALINE PHOSPHATASE 92 IU/L (46-116); ANION GAP 1 (8-16); ASPARTATE AMINO TRANSFERASE 13 U/L (10-37); BILIRUBIN,TOTAL 0.4 MG/DL (0.1-1.0); BLOOD UREA NITROGEN 21 MG/DL (7-18); BUN/CREATININE RATIO 63.6 (5.4-32.0); CALCIUM 7.7 MG/DL (8.5-10.1); CHLORIDE 103 MMOL/L (99-107); CREATININE 0.33 MG/DL (0.60-1.10); GLUCOSE 120 MG/DL (70-104); LACTATE DEHYDROGENASE 483 U/L (85-227); MAGNESIUM 2.3 MG/DL (1.5-2.4); PHOSPHORUS 2.2 MG/DL (2.3-4.5); POTASSIUM 3.5 MMOL/L (3.5-5.1); PREALBUMIN 26.4 MG/DL (19-36); SODIUM 144 MMOL/L (135-145); TOTAL PROTEIN 4.6 G/DL (6.4-8.2); eGFR > 90 ML/MIN
[2021-08-12 02:46] LABS: TOTAL CARBON DIOXIDE 40.4 MMOL/L (24-32)
[2021-08-12] MEDS: fentaNYL/PF inj 2,500 MCG in normal saline 250ml IV soln 200 ML IV PRN ×3 (03:49→17:46)
[2021-08-12 04:11] LABS: ABG BASE EXCESS 14.1 mmol/L (-2.0-2.0); ABG HCO3 39.4 mmol/L (22.0-26.0); ABG PCO2 (T) 52.4 mmHg (35.0-48.0); ABG PO2 (T) 79.9 mmHg (75.0-100.0); ALLEN'S TEST POSITIVE; FCOHb 0.3 % (0.0-3.9); FMetHb 0.3 % (0.0-1.5); FO2Hb 95.4 % (94-97); PATIENT TEMPERATURE 37.1; PEEP 15 cm H2O; RESPIRATORY RATE 30 b/min; TIDAL VOLUME 425 mL; TOTAL HEMOGLOBIN 12.7 G/dl (14.0-18.0)
--- NOTE | 2021-08-12 04:35 | NUR ---
Rounds with Dr. Malloy, Reviewed current plan of care, I&O's, ventilator settings, Current ABG results. MD to place orders.
[2021-08-12] MEDS: furosemide 40mg/4ml inj IV SCH ×2 (05:00→07:19)
[2021-08-12] MEDS: NORepinephrine 8mg/ 250ml NS 250 ML IV SCH ×2 (05:23→08:08)
--- NOTE | 2021-08-12 06:20 | NUR ---
Patient in room CICU 2008. I have received report from ANDRÉS Abdi and had the opportunity to ask questions and assume patient care.
[2021-08-12] MEDS: micafungin inj 100 MG in normal saline 100ml IV soln 100 ML IV SCH (07:17)
[2021-08-12] MEDS: lactobacillus rhamnosus 10,000 MMU CELLS/CAPSULE OGT SCH ×2 (07:20→19:12)
[2021-08-12] MEDS: docusate sodium 100mg/10ml UD cup OGT SCH ×2 (07:20→19:12)
[2021-08-12] MEDS: enoxaparin 80mg/0.8ml syringe SUBCUT SCH ×2 (07:54→19:12)
[2021-08-12] MEDS: pantoprazole IV 40 MG in normal saline 100ml IV soln 100 ML IV SCH (08:07)
--- NOTE | 2021-08-12 11:00 | NUR ---
Patient's saturation was 98-99% prone. Dr. Singer requested we attempt chest xray and if patient tolerates then continue with supine/prone protocol. Xray was paged and once they were bedside patient was prepared for supine. Xray plate placed and back hatches closed and secured. Patient was then turned supine. Xray was taken and patient's saturation only dropped to 95-94%. After xray was taken patient was turned prone to remove plate and then again turned supine. Bed was broken down. It was apparent that the left chest tube had been leaking serosanguineous fluid, as the draw sheet and dressing was saturated. Patient's saturation remained at 94% so the chest tube dressing was removed and the insertion site was assessed. It appeared to be intact and did not appear to be an air leak at the insertion site. Site was cleaned and occlusive dressing was placed. Next the right chest tube site was assessed. It appeared that there was an air leak at the insertion site so a petroleum gauze was quickly placed and MD was asked to come bedside to assess. Dr. Singer decided that the site needed an additional suture, so after cleaning the site Dr. Singer placed another suture and that appeared to stop the air sound from the insertion site. Next the site was cleaned again and a dressing was placed. Patient continued to tolerate really well with saturation remaining at 94%. Dr. Singer ordered for RT to begin weaning the PEEP starting with dropping it from 15 to 13. After this was done there was no change in the saturation. Patient was then wiped down and protective foam placed in high contact areas. Gonzalez care was done then dry flows and linen changed. The tyrel were replaced and tightened. Oral care was done and foams were replaced over eyes. Face shield replaced and tightened and then patient was secured for proning. Once returned to prone position patient returned to 98%. Altogether, patient was supine for 1 hour. Will continue to attempt supine per protocol.
--- NOTE | 2021-08-12 13:00 | NUR ---
Had family meeting with Dr. Singer, patient's 2 brothers, and family friend. The outcome of the meeting was that the family would like to continue care and give the patient some more time. If patient goes into multiorgan failure then they are willing to revisit the idea of comfort care.
[2021-08-12 13:30] LABS: MAGNESIUM 2.2 MG/DL (1.5-2.4); PHOSPHORUS 3.5 MG/DL (2.3-4.5); POTASSIUM 3.9 MMOL/L (3.5-5.1)
[2021-08-12 13:50] LABS: ABG BASE EXCESS 12.1 mmol/L (-2.0-2.0); ABG HCO3 39.2 mmol/L (22.0-26.0); ABG OXYGEN SATURATION 80.8 % (94-97); ABG PCO2 (T) 61.6 mmHg (35.0-48.0); ABG PO2 (T) 43.6 mmHg (75.0-100.0); ALLEN'S TEST POSITIVE; FCOHb 0.6 % (0.0-3.9); FMetHb 0.3 % (0.0-1.5); FO2Hb 80.1 % (94-97); PATIENT TEMPERATURE 36.7; PEEP 10 cm H2O; RESPIRATORY RATE 30 b/min; TIDAL VOLUME 425 mL
--- NOTE | 2021-08-12 14:00 | NUR ---
Prepared patient for supine by locking and securing back hatches. Patient was supined and RT tamela an ABG. Patient was only supine from 4998-7812 due to oxygen saturation decreasing to 77%. Once patient was prone again the patient's saturation quickly returned to 94% within 2 minutes.
--- NOTE | 2021-08-12 14:19 | NUR ---
Dr. Singer reviewed patient's ABG with the pO2 of 43.6. Dr. Singer stated to leave ventilator settings as is and repeat the ABG in the morning as usual. Dr. Singer also stated to leave patient prone through NOC shift tonight.
--- NOTE | 2021-08-12 18:19 | NUR ---
Patient in room [facility] 2008. I have received report from and had the opportunity to ask questions and assume patient care. Addendum: 08/12/21 at 1819 by Rosaura Castañeda RN Problems reprioritized. Patient report given, questions answered & plan of care reviewed with ANDRÉS Abdi.
--- NOTE | 2021-08-12 18:28 | NUR ---
Patient in room CICU 2008. I have received report from ANDRÉS Kaplan and had the opportunity to ask questions and assume patient care.
[2021-08-12] MEDS: insulin glargine (Lantus) pen - multi-dose SQ SCH (20:05)
--- NOTE | 2021-08-12 22:47 | NUR ---
Patients heart rate noted to be in the 120's, patient assessed: lung sounds present, course bilaterally, unchanged from previous assessment. Chest tubes in patent. Train of four 4/4 on level 8 to ulnar nerve. Bolus for pain administered per order and policy, see IV spreadsheet. Nimbex titrated per order and policy. Patient with positive response with decrease in heart rate to 100.
[2021-08-13] VITALS (24 sets, daily range): BP systolic 77–140; BP diastolic 38–94
[2021-08-13] MEDS: methylPREDNISolone sod succ/PF 40mg inj. IV SCH ×3 (00:07→15:59)
[2021-08-13] MEDS: mineral oil/petrolatum ophthal oint EACHEYE SCH ×4 (01:18→19:51)
[2021-08-13] MEDS: fentaNYL/PF inj 2,500 MCG in normal saline 250ml IV soln 200 ML IV PRN ×3 (01:30→16:12)
[2021-08-13] MEDS: CISatracurium besylate inj. 100 MG in normal saline 100ml IV soln 90 ML IV PRN ×7 (01:54→23:25)
[2021-08-13] MEDS: insulin regular, human U-100 3ml vial - multi-dose SQ SCH ×4 (01:56→20:25)
[2021-08-13 03:24] LABS: BASOPHILS % (AUTO) 0.1 % (0-1); EOSINOPHILS # (AUTO) 0.4 X10'3 (0-0.9); EOSINOPHILS % (AUTO) 2.3 % (0-6); HEMATOCRIT 30.2 % (42.0-52.0); LYMPHOCYTES # (AUTO) 1.3 X10'3 (1.1-4.8); LYMPHOCYTES % (AUTO) 7.8 % (21-51); MEAN CORPUSCULAR HEMOGLOBIN 29.4 PG (27.0-31.0); MEAN CORPUSCULAR HGB CONC 33.2 g/dL (33.0-36.5); MEAN CORPUSCULAR VOLUME 88.3 FL (78-98); MEAN PLATELET VOLUME 9.5 FL (7.4-10.4); MONOCYTES # (AUTO) 0.6 X10'3 (0-0.9); MONOCYTES % (AUTO) 3.8 % (2-12); NEUTROPHILS # (AUTO) 14.2 X10'3 (1.8-7.7); PLATELET COUNT 215 X10'3 (140-440); RED BLOOD COUNT 3.42 X10'6 (4.70-6.10); RED CELL DISTRIBUTION WIDTH 16.3 % (11.5-14.5); WHITE BLOOD COUNT 16.5 X10'3 (4.5-11.0)
[2021-08-13 03:37] LABS: D-DIMER 1.31 MG/L FEU (0-0.50)
[2021-08-13 03:41] LABS: ALANINE AMINOTRANSFERASE 17 U/L (12-78); ALBUMIN 1.5 G/DL (3.4-5.0); ALBUMIN/GLOBULIN RATIO 0.5 (1.1-1.5); ALKALINE PHOSPHATASE 79 IU/L (46-116); ANION GAP 2 (8-16); ASPARTATE AMINO TRANSFERASE 13 U/L (10-37); BILIRUBIN,TOTAL 0.3 MG/DL (0.1-1.0); BLOOD UREA NITROGEN 17 MG/DL (7-18); BUN/CREATININE RATIO 70.8 (5.4-32.0); CALCIUM 7.5 MG/DL (8.5-10.1); CHLORIDE 103 MMOL/L (99-107); CREATININE 0.24 MG/DL (0.60-1.10); GLUCOSE 115 MG/DL (70-104); LACTATE DEHYDROGENASE 436 U/L (85-227); MAGNESIUM 2.2 MG/DL (1.5-2.4); PHOSPHORUS 3.2 MG/DL (2.3-4.5); POTASSIUM 3.6 MMOL/L (3.5-5.1); SODIUM 144 MMOL/L (135-145); TOTAL CARBON DIOXIDE 39.1 MMOL/L (24-32); TOTAL PROTEIN 4.5 G/DL (6.4-8.2); TRIGLYCERIDES 186 MG/DL (20-135); eGFR > 90 ML/MIN
[2021-08-13] MEDS: propofol 1000mg/100ml bottle 100 ML IV SCH ×6 (03:41→19:49)
[2021-08-13] MEDS: midazolam 100mg in NS 100ml 100 ML IV PRN ×4 (03:42→19:39)
[2021-08-13] MEDS: NORepinephrine 8mg/ 250ml NS 250 ML IV SCH ×2 (03:43→23:21)
[2021-08-13 03:54] LABS: ABG BASE EXCESS 8.8 mmol/L (-2.0-2.0); ABG HCO3 35.7 mmol/L (22.0-26.0); ABG OXYGEN SATURATION 95.4 % (94-97); ABG PCO2 (T) 60.1 mmHg (35.0-48.0); ABG PO2 (T) 84.1 mmHg (75.0-100.0); ALLEN'S TEST POSITIVE; FCOHb 0.5 % (0.0-3.9); FMetHb 0.4 % (0.0-1.5); FO2Hb 94.5 % (94-97); PATIENT TEMPERATURE 37.3; PEEP 10 cm H2O; RESPIRATORY RATE 30 b/min; TIDAL VOLUME 425 mL; TOTAL HEMOGLOBIN 12.9 G/dl (14.0-18.0)
--- NOTE | 2021-08-13 04:53 | NUR ---
Rounds with Dr. Bradley, reviewed current ABG, lab values, plan of care and events. Discussed FiO2, no adjustments at this time. MD advised that patient has consistent pO2 in the 70's or above before we adjust FiO2.
--- NOTE | 2021-08-13 06:04 | NUR ---
Problems reprioritized. Patient report given, questions answered & plan of care reviewed with ANDRÉS Kaplan.
[2021-08-13] MEDS: micafungin inj 100 MG in normal saline 100ml IV soln 100 ML IV SCH (07:18)
[2021-08-13] MEDS: docusate sodium 100mg/10ml UD cup OGT SCH ×2 (07:19→20:11)
[2021-08-13] MEDS: furosemide 40mg/4ml inj IV SCH (07:19)
[2021-08-13] MEDS: lactobacillus rhamnosus 10,000 MMU CELLS/CAPSULE OGT SCH ×2 (07:19→20:11)
[2021-08-13] MEDS: pantoprazole IV 40 MG in normal saline 100ml IV soln 100 ML IV SCH (08:41)
[2021-08-13] MEDS: enoxaparin 80mg/0.8ml syringe SUBCUT SCH ×2 (09:23→20:12)
--- NOTE | 2021-08-13 10:00 | NUR ---
Patient supine for Xray. Oral care, garcia care, and readjustment of the bed/patient was done. Patient was supine for 15 minutes and began to desaturate to 85%. Once patient was prepared for prone his saturation was 73%. Patient was turned back to prone and immediately his saturation improved to 98%
--- NOTE | 2021-08-13 11:01 | NUR ---
Per Dr. Singer titrate FiO2 to maintain an oxygen saturation of 92%. In addition, change proning schedule to 7 hours prone and 1 hour supine. Okay to cut supine short and turn patient back to prone if oxygen saturation drops below 88%.
--- NOTE | 2021-08-13 16:55 | NUR ---
Patient was prepared for supine, back hatches closed and secured, and then patient was turned at 1614. Once supine the face shield was removed and ice placed over face. Patient was then placed in reverse Trendelenburg and rotated 20 degrees right and left. At time of turn patient was on 85% Fio2 saturating at 95%. Once prone patient was holding at 88-89% on the same Fio2 for 13 minutes and then began to desaturate to 85%. Fio2 was then turned to 100% and patient's saturation went back up to 88% and held there from 2213-8637 when patient began to desaturate to 84%. Patient was then prepared for proning again. Ice was removed and face shield replaced. Once prone patient quickly came back up to 97% on 100% Fio2. Fio2 was then titrated back down to 85% and saturation dipped to 96% and held there. Will continue to titrate Fio2 and proning schedule per MD order.
--- NOTE | 2021-08-13 18:16 | NUR ---
Problems reprioritized. Patient report given, questions answered & plan of care reviewed with ANDRÉS Abdi.
--- NOTE | 2021-08-13 18:21 | NUR ---
Patient in room CICU 2008. I have received report from ANDRÉS Kaplan and had the opportunity to ask questions and assume patient care.
[2021-08-13] MEDS: insulin glargine (Lantus) pen - multi-dose SQ SCH (21:09)
[2021-08-14] VITALS (24 sets, daily range): BP systolic 83–161; BP diastolic 50–114
[2021-08-14] MEDS: fentaNYL/PF inj 2,500 MCG in normal saline 250ml IV soln 200 ML IV PRN ×4 (00:12→22:07)
[2021-08-14] MEDS: midazolam 100mg in NS 100ml 100 ML IV PRN ×4 (00:27→15:03)
--- NOTE | 2021-08-14 00:53 | NUR ---
Desaturating to 69% when supine. Patient placed to supine position on rotoprone bed with RT, RN and kiln charger at bedside. FiO2 increased to 100% prior to rotation. Patient tolerated supine position for only about 5 minutes. Eyes assessed: marcia orbital swelling noted, sclera of eyes with mild edema, Pupils: HARIKA at 4mm sluggish. Unable to place ice to patients face secondary to decreased oxygen saturation. Catheter care completed. New Alleyvn dressings placed over eyes, small purple/ red open area noted to left cheek, unable to take wound picture secondary to decompensation. Patients oxygen saturation at 100% at beginning of turn, and quickly decreased to a low of 69%. Unable to break bed down completely only head cage and tyrel able to be removed. All safety checks completed on rotoprone bed, tyrel secured and face padding/cage secured. Patient rotation back to prone with increase in oxygen saturation to 98% on 100 % FiO2.
[2021-08-14] MEDS: mineral oil/petrolatum ophthal oint EACHEYE SCH ×4 (01:26→20:09)
[2021-08-14] MEDS: propofol 1000mg/100ml bottle 100 ML IV SCH ×7 (01:27→23:38)
[2021-08-14] MEDS: dextrose 50%-water 50ml dispensing syringe IV PRN (02:33)
[2021-08-14] MEDS: CISatracurium besylate inj. 100 MG in normal saline 100ml IV soln 90 ML IV PRN ×6 (03:01→20:47)
[2021-08-14 03:35] LABS: BASOPHILS # (AUTO) 0.1 X10'3 (0-0.2); BASOPHILS % (AUTO) 0.5 % (0-1); EOSINOPHILS # (AUTO) 0.5 X10'3 (0-0.9); EOSINOPHILS % (AUTO) 3.5 % (0-6); HEMATOCRIT 33.2 % (42.0-52.0); LYMPHOCYTES # (AUTO) 1.4 X10'3 (1.1-4.8); LYMPHOCYTES % (AUTO) 9.8 % (21-51); MEAN CORPUSCULAR HEMOGLOBIN 29.2 PG (27.0-31.0); MEAN CORPUSCULAR VOLUME 88.8 FL (78-98); MEAN PLATELET VOLUME 9.2 FL (7.4-10.4); MONOCYTES # (AUTO) 0.5 X10'3 (0-0.9); MONOCYTES % (AUTO) 3.6 % (2-12); NEUTROPHILS # (AUTO) 11.6 X10'3 (1.8-7.7); NEUTROPHILS % (AUTO) 82.6 % (42-75); PLATELET COUNT 238 X10'3 (140-440); RED BLOOD COUNT 3.74 X10'6 (4.70-6.10); RED CELL DISTRIBUTION WIDTH 16.3 % (11.5-14.5); WHITE BLOOD COUNT 14.1 X10'3 (4.5-11.0)
[2021-08-14 03:38] LABS: ABG BASE EXCESS 11.1 mmol/L (-2.0-2.0); ABG HCO3 37.3 mmol/L (22.0-26.0); ABG OXYGEN SATURATION 96.6 % (94-97); ABG PCO2 (T) 57.1 mmHg (35.0-48.0); ALLEN'S TEST POSITIVE; FCOHb 0.2 % (0.0-3.9); FMetHb 0.3 % (0.0-1.5); FO2Hb 96.1 % (94-97); PATIENT TEMPERATURE 37.1; PEEP 10 cm H2O; RESPIRATORY RATE 30 b/min; TIDAL VOLUME 425 mL; TOTAL HEMOGLOBIN 11.8 G/dl (14.0-18.0)
[2021-08-14 03:47] LABS: D-DIMER 1.38 MG/L FEU (0-0.50)
[2021-08-14 03:52] LABS: ALANINE AMINOTRANSFERASE 20 U/L (12-78); ALBUMIN 1.8 G/DL (3.4-5.0); ALBUMIN/GLOBULIN RATIO 0.5 (1.1-1.5); ALKALINE PHOSPHATASE 85 IU/L (46-116); ANION GAP 2 (8-16); ASPARTATE AMINO TRANSFERASE 16 U/L (10-37); BILIRUBIN,TOTAL 0.3 MG/DL (0.1-1.0); BLOOD UREA NITROGEN 15 MG/DL (7-18); BUN/CREATININE RATIO 71.4 (5.4-32.0); CALCIUM 7.7 MG/DL (8.5-10.1); CHLORIDE 104 MMOL/L (99-107); CREATININE 0.21 MG/DL (0.60-1.10); GLUCOSE 71 MG/DL (70-104); LACTATE DEHYDROGENASE 548 U/L (85-227); MAGNESIUM 2.2 MG/DL (1.5-2.4); PHOSPHORUS 3.2 MG/DL (2.3-4.5); POTASSIUM 3.3 MMOL/L (3.5-5.1); SODIUM 145 MMOL/L (135-145); TOTAL CARBON DIOXIDE 38.6 MMOL/L (24-32); TOTAL PROTEIN 5.3 G/DL (6.4-8.2); eGFR > 90 ML/MIN
--- NOTE | 2021-08-14 04:25 | NUR ---
Rounds with Dr. Bradley, current labs, ABG and vital signs reviewed. Addressed patients increased heart rate to the 120-130. Decreased urine output. Updated MD on events of patient not tolerating being supine with decreased oxygen saturation to 69%. After proning patient with increased heart rate. Levophed is off currently. Sedation medications are at max dose per orders. MD to change Propofol to Procedex secondary to increased triglycerides.
[2021-08-14] MEDS: POTASSIUM BICARB 20meq eff tab 20 MEQ TABLET.EFF OGT PRN ×3 (04:33→13:52)
[2021-08-14] MEDS: dexmedetomidin/NS 400mcg/100ml 100 ML IV SCH ×2 (04:53→14:33)
--- NOTE | 2021-08-14 06:23 | NUR ---
Problems reprioritized. Patient report given, questions answered & plan of care reviewed with ANDRÉS Sanford.
[2021-08-14] MEDS ORDERED: albumin (human) 25% 100 ML IV solution IV SCH (08:00)
[2021-08-14] MEDS: docusate sodium 100mg/10ml UD cup OGT SCH ×2 (08:00→20:10)
[2021-08-14] MEDS: pantoprazole IV 40 MG in normal saline 100ml IV soln 100 ML IV SCH (09:43)
[2021-08-14] MEDS: methylPREDNISolone sod succ/PF 40mg inj. IV SCH ×2 (09:43→20:11)
[2021-08-14] MEDS: lactobacillus rhamnosus 10,000 MMU CELLS/CAPSULE OGT SCH ×2 (09:43→20:11)
[2021-08-14] MEDS: furosemide 40mg/4ml inj IV SCH (09:44)
[2021-08-14] MEDS: enoxaparin 80mg/0.8ml syringe SUBCUT SCH ×2 (09:44→20:11)
--- NOTE | 2021-08-14 11:26 | NUR ---
Reassessment: Pt remains intubated and tolerating TF at goal rate with GRV WNL. Propofol rate remains the same, no adjustments to TF recommendations needed at this time. Pt continues to have stool output from rectal tube, documented with 100 mL stool output 08/13 per I&O. Pt continues receiving routine bowel care. Will continue to follow. Recommendations: 1) Given Propofol rate of 27.9mL/hr (737 kcal/day), continuous Vital AF with goal rate of 65mL/hr to provide 1560mL total volume/day, 1872 kcal, 117g protein, and 1264 mL water 2) Monitor for adjustments in Propofol rate and adjust TF as appropriate 3) IF Propofol is discontinued, resume continuous Vital AF with goal rate of 85 mL/hr to provide 2040 mL total volume/day, 2448 kcal, 153 g protein, and 1654 mL water 4) Additional 200 mL water flush Q12H per MD; monitor serum Na 5) Prealbumin q Thursday/ 6) Daily scaled weights 7) Routine bowel care 8) PO diet advancement to CHO controlled as medically indicated following extubation; consider BSS with ST prior to PO diet advancement 9) DM education once stable following extubation and official DM dx by physician; A1c 10.1% with no PMH DM in EMR Addendum: 08/14/21 at [address] Amended: Links added.
[2021-08-14] MEDS: QUEtiapine 25mg tablet PO SCH ×2 (13:52→20:11)
[2021-08-14] MEDS: insulin regular, human U-100 3ml vial - multi-dose SQ SCH ×2 (14:04→20:45)
[2021-08-14] MEDS: NORepinephrine 8mg/ 250ml NS 250 ML IV SCH ×2 (19:27→23:38)
[2021-08-14] MEDS: insulin glargine (Lantus) pen - multi-dose SQ SCH (20:46)
--- NOTE | 2021-08-14 23:05 | NUR ---
Attempted to wean propofol, but pt started shivering.
[2021-08-15] VITALS (24 sets, daily range): BP systolic 82–155; BP diastolic 43–96
[2021-08-15] MEDS: midazolam 100mg in NS 100ml 100 ML IV PRN ×5 (01:57→20:32)
[2021-08-15] MEDS: mineral oil/petrolatum ophthal oint EACHEYE SCH ×4 (02:06→19:36)
[2021-08-15] MEDS: propofol 1000mg/100ml bottle 100 ML IV SCH ×6 (02:07→23:45)
[2021-08-15] MEDS: CISatracurium besylate inj. 100 MG in normal saline 100ml IV soln 90 ML IV PRN ×6 (02:11→22:49)
[2021-08-15] MEDS: insulin regular, human U-100 3ml vial - multi-dose SQ SCH ×4 (02:45→19:49)
[2021-08-15] MEDS: dexmedetomidin/NS 400mcg/100ml 100 ML IV SCH ×2 (02:54→14:11)
[2021-08-15 03:41] LABS: ABG HCO3 39.3 mmol/L (22.0-26.0); ABG OXYGEN SATURATION 87.1 % (94-97); ABG PCO2 (T) 61.3 mmHg (35.0-48.0); ABG PO2 (T) 50.6 mmHg (75.0-100.0); ALLEN'S TEST Modified; FMetHb 0.1 % (0.0-1.5); FO2Hb 86.1 % (94-97); PATIENT TEMPERATURE 37.5; PEEP 10 cm H2O; RESPIRATORY RATE 30 b/min; TIDAL VOLUME 425 mL; TOTAL HEMOGLOBIN 10.4 G/dl (14.0-18.0)
[2021-08-15 03:58] LABS: BASOPHILS % (AUTO) 0.1 % (0-1); EOSINOPHILS # (AUTO) 0.1 X10'3 (0-0.9); EOSINOPHILS % (AUTO) 0.6 % (0-6); HEMATOCRIT 29.6 % (42.0-52.0); HEMOGLOBIN 9.8 g/dl (14.0-17.9); LYMPHOCYTES # (AUTO) 0.4 X10'3 (1.1-4.8); LYMPHOCYTES % (AUTO) 4.2 % (21-51); MEAN CORPUSCULAR HEMOGLOBIN 29.8 PG (27.0-31.0); MEAN CORPUSCULAR HGB CONC 33.3 g/dL (33.0-36.5); MEAN CORPUSCULAR VOLUME 89.3 FL (78-98); MEAN PLATELET VOLUME 9.3 FL (7.4-10.4); MONOCYTES # (AUTO) 0.2 X10'3 (0-0.9); MONOCYTES % (AUTO) 1.8 % (2-12); NEUTROPHILS # (AUTO) 9.6 X10'3 (1.8-7.7); NEUTROPHILS % (AUTO) 93.3 % (42-75); PLATELET COUNT 219 X10'3 (140-440); RED BLOOD COUNT 3.31 X10'6 (4.70-6.10); RED CELL DISTRIBUTION WIDTH 16.5 % (11.5-14.5); WHITE BLOOD COUNT 10.3 X10'3 (4.5-11.0)
[2021-08-15 04:02] LABS: D-DIMER 1.96 MG/L FEU (0-0.50)
[2021-08-15 04:05] LABS: ALANINE AMINOTRANSFERASE 20 U/L (12-78); ALBUMIN 1.6 G/DL (3.4-5.0); ALBUMIN/GLOBULIN RATIO 0.5 (1.1-1.5); ALKALINE PHOSPHATASE 89 IU/L (46-116); ANION GAP -1 (8-16); ASPARTATE AMINO TRANSFERASE 11 U/L (10-37); BILIRUBIN,TOTAL 0.4 MG/DL (0.1-1.0); BLOOD UREA NITROGEN 16 MG/DL (7-18); BUN/CREATININE RATIO 61.5 (5.4-32.0); CALCIUM 8.1 MG/DL (8.5-10.1); CHLORIDE 107 MMOL/L (99-107); CREATININE 0.26 MG/DL (0.60-1.10); GLUCOSE 137 MG/DL (70-104); POTASSIUM 4.5 MMOL/L (3.5-5.1); SODIUM 145 MMOL/L (135-145); TOTAL CARBON DIOXIDE 38.5 MMOL/L (24-32); TOTAL PROTEIN 5.1 G/DL (6.4-8.2); eGFR > 90 ML/MIN
[2021-08-15 04:08] LABS: LACTATE DEHYDROGENASE 407 U/L (85-227); MAGNESIUM 2.2 MG/DL (1.5-2.4); PHOSPHORUS 4.4 MG/DL (2.3-4.5); PREALBUMIN 23.9 MG/DL (19-36)
[2021-08-15 04:37] LABS: TOTAL CELLS COUNTED 100
[2021-08-15 04:38] LABS: ANISOCYTOSIS 1+; LARGE PLATELETS FEW; PLATELET ESTIMATE NORMAL
--- NOTE | 2021-08-15 04:45 | NUR ---
Tele rounds with Dr. Tapia. Starting Epi, titrate to urine output if blood pressure and heart rate are tolerating. Unable to supine for chest x-ray. aware.
[2021-08-15] MEDS: fentaNYL/PF inj 2,500 MCG in normal saline 250ml IV soln 200 ML IV PRN ×3 (05:47→21:32)
[2021-08-15] MEDS: epiNEPHrine inj 10 MG in normal saline 250ml IV soln 240 ML IV SCH ×2 (05:49→22:50)
[2021-08-15] MEDS: furosemide 40mg/4ml inj IV SCH ×2 (08:00→17:35)
[2021-08-15] MEDS: lactobacillus rhamnosus 10,000 MMU CELLS/CAPSULE OGT SCH ×2 (08:55→19:35)
[2021-08-15] MEDS: docusate sodium 100mg/10ml UD cup OGT SCH ×2 (08:55→19:35)
[2021-08-15] MEDS: methylPREDNISolone sod succ/PF 40mg inj. IV SCH ×2 (08:55→19:35)
[2021-08-15] MEDS: enoxaparin 80mg/0.8ml syringe SUBCUT SCH ×2 (08:56→19:35)
[2021-08-15] MEDS: QUEtiapine 25mg tablet PO SCH ×3 (08:56→20:29)
[2021-08-15] MEDS: pantoprazole IV 40 MG in normal saline 100ml IV soln 100 ML IV SCH (09:16)
[2021-08-15] MEDS: albumin (human) 25% 100 ML IV solution IV SCH ×2 (14:00→19:36)
[2021-08-15] MEDS: insulin glargine (Lantus) pen - multi-dose SQ SCH (20:12)
[2021-08-16] VITALS (24 sets, daily range): BP systolic 89–163; BP diastolic 42–98
[2021-08-16] MEDS: dexmedetomidin/NS 400mcg/100ml 100 ML IV SCH ×2 (01:28→10:54)
[2021-08-16] MEDS: mineral oil/petrolatum ophthal oint EACHEYE SCH ×4 (01:45→19:34)
[2021-08-16] MEDS: albumin (human) 25% 100 ML IV solution IV SCH ×4 (01:46→19:33)
[2021-08-16] MEDS: CISatracurium besylate inj. 100 MG in normal saline 100ml IV soln 90 ML IV PRN ×8 (01:46→21:54)
[2021-08-16] MEDS: midazolam 100mg in NS 100ml 100 ML IV PRN ×5 (01:47→23:05)
[2021-08-16 03:00] LABS: BASOPHILS % (AUTO) 0.1 % (0-1); EOSINOPHILS # (AUTO) 0.1 X10'3 (0-0.9); EOSINOPHILS % (AUTO) 0.8 % (0-6); HEMATOCRIT 27.9 % (42.0-52.0); HEMOGLOBIN 9.4 g/dl (14.0-17.9); LYMPHOCYTES # (AUTO) 0.6 X10'3 (1.1-4.8); LYMPHOCYTES % (AUTO) 8.3 % (21-51); MEAN CORPUSCULAR HGB CONC 33.8 g/dL (33.0-36.5); MEAN CORPUSCULAR VOLUME 88.9 FL (78-98); MEAN PLATELET VOLUME 9.3 FL (7.4-10.4); MONOCYTES # (AUTO) 0.3 X10'3 (0-0.9); MONOCYTES % (AUTO) 3.8 % (2-12); NEUTROPHILS # (AUTO) 5.9 X10'3 (1.8-7.7); PLATELET COUNT 209 X10'3 (140-440); RED BLOOD COUNT 3.14 X10'6 (4.70-6.10); RED CELL DISTRIBUTION WIDTH 17.1 % (11.5-14.5); WHITE BLOOD COUNT 6.7 X10'3 (4.5-11.0)
[2021-08-16] MEDS: NORepinephrine 8mg/ 250ml NS 250 ML IV SCH (03:05)
[2021-08-16 03:08] LABS: D-DIMER 1.38 MG/L FEU (0-0.50)
[2021-08-16 03:15] LABS: ABG BASE EXCESS 13.1 mmol/L (-2.0-2.0); ABG PCO2 (T) 66.2 mmHg (35.0-48.0); ABG PO2 (T) 60.1 mmHg (75.0-100.0); ALLEN'S TEST Modified; FCOHb 0.7 % (0.0-3.9); FMetHb 0.1 % (0.0-1.5); FO2Hb 90.3 % (94-97); PEEP 8 cm H2O; RESPIRATORY RATE 30 b/min; TIDAL VOLUME 425 mL; TOTAL HEMOGLOBIN 9.7 G/dl (14.0-18.0)
[2021-08-16 03:20] LABS: ALANINE AMINOTRANSFERASE 20 U/L (12-78); ALBUMIN 2.4 G/DL (3.4-5.0); ALBUMIN/GLOBULIN RATIO 0.7 (1.1-1.5); ALKALINE PHOSPHATASE 82 IU/L (46-116); ANION GAP 2 (8-16); ASPARTATE AMINO TRANSFERASE 10 U/L (10-37); BILIRUBIN,TOTAL 0.4 MG/DL (0.1-1.0); BLOOD UREA NITROGEN 8 MG/DL (7-18); CALCIUM 8.4 MG/DL (8.5-10.1); CHLORIDE 108 MMOL/L (99-107); CREATININE 0.16 MG/DL (0.60-1.10); GLUCOSE 68 MG/DL (70-104); LACTATE DEHYDROGENASE 365 U/L (85-227); MAGNESIUM 2.1 MG/DL (1.5-2.4); PHOSPHORUS 4.3 MG/DL (2.3-4.5); POTASSIUM 4.1 MMOL/L (3.5-5.1); SODIUM 146 MMOL/L (135-145); TOTAL CARBON DIOXIDE 36.5 MMOL/L (24-32); TOTAL PROTEIN 5.8 G/DL (6.4-8.2); eGFR > 90 ML/MIN
[2021-08-16] MEDS: fentaNYL/PF inj 2,500 MCG in normal saline 250ml IV soln 200 ML IV PRN ×3 (04:59→19:54)
[2021-08-16] MEDS: pantoprazole IV 40 MG in normal saline 100ml IV soln 100 ML IV SCH (06:55)
[2021-08-16] MEDS: propofol 1000mg/100ml bottle 100 ML IV SCH ×6 (06:57→23:05)
[2021-08-16] MEDS: methylPREDNISolone sod succ/PF 40mg inj. IV SCH ×2 (07:05→19:33)
[2021-08-16] MEDS: enoxaparin 80mg/0.8ml syringe SUBCUT SCH ×2 (07:10→19:34)
[2021-08-16] MEDS: furosemide 40mg/4ml inj IV SCH ×2 (07:10→19:33)
[2021-08-16] MEDS: lactobacillus rhamnosus 10,000 MMU CELLS/CAPSULE OGT SCH ×2 (07:13→19:33)
[2021-08-16] MEDS: QUEtiapine 25mg tablet PO SCH (07:13)
[2021-08-16] MEDS: docusate sodium 100mg/10ml UD cup OGT SCH ×2 (07:13→19:34)
[2021-08-16] MEDS: insulin regular, human U-100 3ml vial - multi-dose SQ SCH ×3 (07:59→20:34)
--- NOTE | 2021-08-16 09:19 | NUR ---
Attempt made to supine, RT at bedside,patient did not tolerate. O2 sat dropped to 64% and HR dropped from 110's ST to 79. Patient recovered back to 88-91%, remains on 95% FiO2 Peep 8.
[2021-08-16 11:53] LABS: C-REACTIVE PROTEIN 21.21 MG/DL (0.0-0.5)
[2021-08-16] MEDS ORDERED: PERFLUTREN PROTEIN-A MICROSPHR (Optison) 0.22 MG/ML 3ML VIAL IV ONE (12:00)
[2021-08-16] MEDS: cyclobenzaprine 10mg tablet PO SCH ×2 (12:40→20:42)
[2021-08-16] MEDS: quetiapine 100mg tablet PO SCH ×2 (12:40→20:42)
--- NOTE | 2021-08-16 20:00 | NUR ---
On Rotoprone bed with HOB up 10 degrees Addendum: 08/16/21 at 2137 by Alessandra Ledezma RN Amended: Links added.
--- NOTE | 2021-08-16 20:00 | NUR ---
Pt on rotoprone bed with HOB up 10 degrees. Addendum: 08/16/21 at 2136 by Alessandra Ledezma RN Amended: Links added.
[2021-08-16] MEDS: insulin glargine (Lantus) pen - multi-dose SQ SCH (20:35)
[2021-08-17] VITALS (24 sets, daily range): BP systolic 94–155; BP diastolic 40–104
[2021-08-17] MEDS: CISatracurium besylate inj. 100 MG in normal saline 100ml IV soln 90 ML IV PRN ×8 (00:35→22:08)
[2021-08-17] MEDS: albumin (human) 25% 100 ML IV solution IV SCH ×4 (02:00→19:44)
[2021-08-17] MEDS: mineral oil/petrolatum ophthal oint EACHEYE SCH ×4 (02:00→19:44)
[2021-08-17] MEDS: insulin regular, human U-100 3ml vial - multi-dose SQ SCH ×3 (02:52→14:17)
[2021-08-17 03:26] LABS: ABG BASE EXCESS 15.1 mmol/L (-2.0-2.0); ABG OXYGEN SATURATION 92.6 % (94-97); ABG PCO2 (T) 61.2 mmHg (35.0-48.0); ABG PO2 (T) 64.8 mmHg (75.0-100.0); ALLEN'S TEST Modified; FCOHb 0.5 % (0.0-3.9); FMetHb 0.2 % (0.0-1.5); PATIENT TEMPERATURE 37.7; PEEP 8 cm H2O; RESPIRATORY RATE 30 b/min; TIDAL VOLUME 425 mL; TOTAL HEMOGLOBIN 9.4 G/dl (14.0-18.0)
[2021-08-17] MEDS: midazolam 100mg in NS 100ml 100 ML IV PRN ×5 (03:33→23:22)
[2021-08-17 03:40] LABS: BASOPHILS % (AUTO) 0.2 % (0-1); EOSINOPHILS # (AUTO) 0.1 X10'3 (0-0.9); EOSINOPHILS % (AUTO) 1.3 % (0-6); HEMATOCRIT 27.8 % (42.0-52.0); HEMOGLOBIN 9.2 g/dl (14.0-17.9); LYMPHOCYTES # (AUTO) 0.5 X10'3 (1.1-4.8); LYMPHOCYTES % (AUTO) 7.7 % (21-51); MEAN CORPUSCULAR HEMOGLOBIN 29.7 PG (27.0-31.0); MEAN CORPUSCULAR HGB CONC 33.2 g/dL (33.0-36.5); MEAN CORPUSCULAR VOLUME 89.6 FL (78-98); MEAN PLATELET VOLUME 9.1 FL (7.4-10.4); MONOCYTES # (AUTO) 0.3 X10'3 (0-0.9); MONOCYTES % (AUTO) 4.6 % (2-12); NEUTROPHILS # (AUTO) 6.1 X10'3 (1.8-7.7); NEUTROPHILS % (AUTO) 86.2 % (42-75); PLATELET COUNT 229 X10'3 (140-440); RED CELL DISTRIBUTION WIDTH 17.1 % (11.5-14.5); WHITE BLOOD COUNT 7.1 X10'3 (4.5-11.0)
[2021-08-17 03:49] LABS: D-DIMER 1.31 MG/L FEU (0-0.50)
[2021-08-17 03:53] LABS: ALANINE AMINOTRANSFERASE 18 U/L (12-78); ALBUMIN 3.3 G/DL (3.4-5.0); ALBUMIN/GLOBULIN RATIO 1.1 (1.1-1.5); ALKALINE PHOSPHATASE 77 IU/L (46-116); ANION GAP 5 (8-16); ASPARTATE AMINO TRANSFERASE 9 U/L (10-37); BILIRUBIN,TOTAL 0.6 MG/DL (0.1-1.0); BLOOD UREA NITROGEN 14 MG/DL (7-18); BUN/CREATININE RATIO 60.9 (5.4-32.0); CALCIUM 8.6 MG/DL (8.5-10.1); CHLORIDE 99 MMOL/L (99-107); CREATININE 0.23 MG/DL (0.60-1.10); GLUCOSE 127 MG/DL (70-104); LACTATE DEHYDROGENASE 311 U/L (85-227); MAGNESIUM 2.1 MG/DL (1.5-2.4); PHOSPHORUS 4.1 MG/DL (2.3-4.5); SODIUM 142 MMOL/L (135-145); TOTAL CARBON DIOXIDE 38.1 MMOL/L (24-32); TOTAL PROTEIN 6.3 G/DL (6.4-8.2); eGFR > 90 ML/MIN
[2021-08-17] MEDS: fentaNYL/PF inj 2,500 MCG in normal saline 250ml IV soln 200 ML IV PRN ×3 (04:20→19:54)
[2021-08-17] MEDS ORDERED: propofol 1000mg/100ml bottle 100 ML IV SCH (05:15)
[2021-08-17] MEDS ORDERED: propofol 1000mg/100ml bottle 100 ML IV ONE (05:18)
[2021-08-17] MEDS: propofol 1000mg/100ml bottle 100 ML IV SCH ×3 (06:31→13:41)
[2021-08-17] MEDS: acetaminophen 325mg/10.15ml oral unit dose solution OGT PRN ×2 (06:51→13:51)
[2021-08-17 08:07] LABS: CLARITY,URINE CLOUDY (Clear); COLOR,URINE YELLOW (Yellow); GLUCOSE, URINE NEGATIVE (Neg); KETONES,URINE TRACE mg/dl (Neg); LEUKOCYTE ESTERASE ,URINE NEGATIVE (Neg); NITRITES, URINE NEGATIVE (Neg); OCCULT BLOOD,URINE LARGE (Neg); PH,URINE 7.5 (4.8-8.0); PROTEIN,URINE 30 mg/dl (Neg); UROBILINOGEN,URINE >=8.0 E.U/dL (0.2-1.0)
[2021-08-17 08:10] LABS: UA COLLECTION TYPE NON-SPECIFIED
[2021-08-17] MEDS: pantoprazole IV 40 MG in normal saline 100ml IV soln 100 ML IV SCH (08:12)
[2021-08-17] MEDS: methylPREDNISolone sod succ/PF 40mg inj. IV SCH ×2 (08:13→19:42)
[2021-08-17] MEDS: enoxaparin 80mg/0.8ml syringe SUBCUT SCH ×2 (08:13→19:43)
[2021-08-17] MEDS: lactobacillus rhamnosus 10,000 MMU CELLS/CAPSULE OGT SCH ×2 (08:14→19:42)
[2021-08-17] MEDS: furosemide 40mg/4ml inj IV SCH ×2 (08:14→19:42)
[2021-08-17] MEDS: quetiapine 100mg tablet PO SCH ×3 (08:14→21:00)
[2021-08-17] MEDS: docusate sodium 100mg/10ml UD cup OGT SCH ×2 (08:14→19:44)
[2021-08-17] MEDS: cyclobenzaprine 10mg tablet PO SCH ×3 (08:15→21:00)
[2021-08-17 08:16] LABS: RBC,URINE TNTC /HPF (0-2)
[2021-08-17 08:18] LABS: BACTERIA,URINE FEW /HPF (Neg); SQUAMOUS EPITHELIAL CELL,UR FEW /LPF (FEW); WBC,URINE 0-4 /HPF (0-4)
--- NOTE | 2021-08-17 15:19 | NUR ---
Reassessment: Pt remains intubated and tolerating TF at goal rate with GRV WNL. Propofol rate visualized at bedside to have decreased to 25.1 mL/hr though still providing a significant amount of kcal, no adjustments to TF recommendations needed at this time. Pt continues to have stool output from rectal tube, documented with 150 mL stool output 08/16 per I&O. Pt continues receiving routine bowel care. Will continue to follow. Recommendations: 1) Given Propofol rate of 25.1 mL/hr (663 kcal/day), continuous Vital AF with goal rate of 65 mL/hr to provide 1560 mL total volume/day, 1872 kcal, 117 g protein, and 1264 mL water 2) Monitor for adjustments in Propofol rate and adjust TF as appropriate 3) IF Propofol is discontinued, resume continuous Vital AF with goal rate of 85 mL/hr to provide 2040 mL total volume/day, 2448 kcal, 153 g protein, and 1654 mL water 4) Additional 200 mL water flush Q12H per MD; monitor serum Na 5) Prealbumin q Thursday/ 6) Daily scaled weights 7) Routine bowel care 8) PO diet advancement to CHO controlled as medically indicated following extubation; consider BSS with ST prior to PO diet advancement 9) DM education once stable following extubation and official DM dx by physician; A1c 10.1% with no PMH DM in EMR Addendum: 08/17/21 at [address] Amended: Links added.
--- NOTE | 2021-08-17 20:00 | NUR ---
No response to TOF @ 10 via ulnar nerve. unable to access occular nerve d/t rotoprone. see IV spreadsheet for sedation/paralytic titration
[2021-08-17] MEDS: insulin glargine (Lantus) pen - multi-dose SQ SCH (21:00)
[2021-08-18] VITALS (24 sets, daily range): BP systolic 87–134; BP diastolic 31–81
[2021-08-18] MEDS: CISatracurium besylate inj. 100 MG in normal saline 100ml IV soln 90 ML IV PRN ×6 (01:51→23:43)
[2021-08-18] MEDS: mineral oil/petrolatum ophthal oint EACHEYE SCH ×4 (01:54→20:15)
[2021-08-18] MEDS: albumin (human) 25% 100 ML IV solution IV SCH ×4 (01:54→19:41)
[2021-08-18] MEDS: dextrose 50%-water 50ml dispensing syringe IV PRN (02:08)
--- NOTE | 2021-08-18 02:50 | NUR ---
tachycardic with rate in 150s, Resp rate 32 - 35. see IV flowsheet for titration of nimbex, propofol and versed to ensure adequate sedation/paralysis
[2021-08-18 03:02] LABS: BASOPHILS % (AUTO) 0.2 % (0-1); EOSINOPHILS % (AUTO) 0.5 % (0-6); HEMATOCRIT 24.3 % (42.0-52.0); HEMOGLOBIN 8.1 g/dl (14.0-17.9); LYMPHOCYTES # (AUTO) 0.3 X10'3 (1.1-4.8); LYMPHOCYTES % (AUTO) 4.6 % (21-51); MEAN CORPUSCULAR HEMOGLOBIN 29.9 PG (27.0-31.0); MEAN CORPUSCULAR HGB CONC 33.3 g/dL (33.0-36.5); MEAN CORPUSCULAR VOLUME 89.7 FL (78-98); MONOCYTES # (AUTO) 0.3 X10'3 (0-0.9); MONOCYTES % (AUTO) 4.3 % (2-12); NEUTROPHILS # (AUTO) 5.6 X10'3 (1.8-7.7); NEUTROPHILS % (AUTO) 90.4 % (42-75); PLATELET COUNT 204 X10'3 (140-440); RED BLOOD COUNT 2.71 X10'6 (4.70-6.10); RED CELL DISTRIBUTION WIDTH 17.8 % (11.5-14.5); WHITE BLOOD COUNT 6.2 X10'3 (4.5-11.0)
[2021-08-18 03:14] LABS: D-DIMER 1.87 MG/L FEU (0-0.50)
[2021-08-18 03:21] LABS: ALANINE AMINOTRANSFERASE 21 U/L (12-78); ALBUMIN 3.5 G/DL (3.4-5.0); ALBUMIN/GLOBULIN RATIO 1.3 (1.1-1.5); ALKALINE PHOSPHATASE 84 IU/L (46-116); ANION GAP 4 (8-16); ASPARTATE AMINO TRANSFERASE 10 U/L (10-37); BILIRUBIN,TOTAL 0.8 MG/DL (0.1-1.0); BLOOD UREA NITROGEN 16 MG/DL (7-18); BUN/CREATININE RATIO 88.9 (5.4-32.0); CALCIUM 8.3 MG/DL (8.5-10.1); CHLORIDE 101 MMOL/L (99-107); CREATININE 0.18 MG/DL (0.60-1.10); GLUCOSE 55 MG/DL (70-104); LACTATE DEHYDROGENASE 262 U/L (85-227); MAGNESIUM 2.1 MG/DL (1.5-2.4); PHOSPHORUS 3.6 MG/DL (2.3-4.5); POTASSIUM 3.5 MMOL/L (3.5-5.1); SODIUM 143 MMOL/L (135-145); TOTAL CARBON DIOXIDE 38.5 MMOL/L (24-32); TOTAL PROTEIN 6.3 G/DL (6.4-8.2); eGFR > 90 ML/MIN
[2021-08-18] MEDS: fentaNYL/PF inj 2,500 MCG in normal saline 250ml IV soln 200 ML IV PRN ×2 (04:29→13:45)
[2021-08-18 04:50] LABS: ABG BASE EXCESS 9.2 mmol/L (-2.0-2.0); ABG HCO3 35.4 mmol/L (22.0-26.0); ABG PCO2 (T) 59.5 mmHg (35.0-48.0); ABG PO2 (T) 50.7 mmHg (75.0-100.0); ALLEN'S TEST POSITIVE; FCOHb 0.8 % (0.0-3.9); FMetHb 0.5 % (0.0-1.5); FO2Hb 81.9 % (94-97); PEEP 12 cm H2O; RESPIRATORY RATE 30 b/min; TIDAL VOLUME 425 mL
[2021-08-18] MEDS: midazolam 100mg in NS 100ml 100 ML IV PRN ×4 (05:07→20:32)
[2021-08-18] MEDS: docusate sodium 100mg/10ml UD cup OGT SCH ×2 (08:00→20:00)
[2021-08-18] MEDS: methylPREDNISolone sod succ/PF 40mg inj. IV SCH ×2 (08:30→19:44)
[2021-08-18] MEDS: lactobacillus rhamnosus 10,000 MMU CELLS/CAPSULE OGT SCH ×2 (08:31→19:45)
[2021-08-18] MEDS: enoxaparin 80mg/0.8ml syringe SUBCUT SCH ×2 (08:31→19:45)
[2021-08-18] MEDS: quetiapine 100mg tablet PO SCH ×3 (08:31→20:25)
[2021-08-18] MEDS: cyclobenzaprine 10mg tablet PO SCH ×3 (08:31→20:25)
[2021-08-18] MEDS: furosemide 40mg/4ml inj IV SCH ×2 (08:31→19:44)
[2021-08-18 09:03] LABS: C-REACTIVE PROTEIN 28.36 MG/DL (0.0-0.5)
[2021-08-18] MEDS: pantoprazole IV 40 MG in normal saline 100ml IV soln 100 ML IV SCH (09:52)
[2021-08-18] MEDS: propofol 1000mg/100ml bottle 100 ML IV SCH ×2 (11:36→20:33)
--- NOTE | 2021-08-18 12:29 | NUR ---
unable to do bhagat wound care since pt prone Addendum: 08/18/21 at 1230 by Gifty Guerrero RN Amended: Links added.
[2021-08-18] MEDS: insulin regular, human U-100 3ml vial - multi-dose SQ SCH ×2 (14:16→20:14)
[2021-08-18] MEDS ORDERED: vancomycin 1,750 MG in NS 350ml IV soln IV ONE (15:30)
[2021-08-18] MEDS: cefepime 2g/NS 100ml ADVANTAGE 100 ML IV SCH ×2 (15:49→23:44)
[2021-08-18] MEDS: insulin glargine (Lantus) pen - multi-dose SQ SCH (20:15)
--- NOTE | 2021-08-18 23:10 | NUR ---
Pt turned supine for repositioning and changing ETT securement device. Chlorhexidine bath done, linen changed, CT dsg on RT changed and reinforced. Brittany supine x 14 min with sats dropping to 65% on FiO2 100%, HR dropped from 118 to 88. Secured in bed, returned to prone position at 2224 with resolution of O2sat and HR within 5 min.
[2021-08-19] VITALS (24 sets, daily range): BP systolic 91–137; BP diastolic 39–90
[2021-08-19] MEDS: vancomycin/NS 1 GM ADD-VANTAGE 250 ML X 1 DOSE IV SCH ×3 (00:56→16:36)
[2021-08-19] MEDS: midazolam 100mg in NS 100ml 100 ML IV PRN ×5 (00:57→20:05)
[2021-08-19] MEDS: fentaNYL/PF inj 2,500 MCG in normal saline 250ml IV soln 200 ML IV PRN ×4 (01:13→22:38)
[2021-08-19] MEDS: albumin (human) 25% 100 ML IV solution IV SCH ×2 (02:05→08:32)
[2021-08-19] MEDS: mineral oil/petrolatum ophthal oint EACHEYE SCH ×4 (02:05→20:00)
[2021-08-19] MEDS: insulin regular, human U-100 3ml vial - multi-dose SQ SCH ×4 (02:25→20:27)
[2021-08-19] MEDS: CISatracurium besylate inj. 100 MG in normal saline 100ml IV soln 90 ML IV PRN ×6 (02:30→22:20)
[2021-08-19 03:18] LABS: BASOPHILS % (AUTO) 0.4 % (0-1); EOSINOPHILS % (AUTO) 0 % (0-6); HEMATOCRIT 23.4 % (42.0-52.0); HEMOGLOBIN 7.7 g/dl (14.0-17.9); LYMPHOCYTES # (AUTO) 0.2 X10'3 (1.1-4.8); LYMPHOCYTES % (AUTO) 3.3 % (21-51); MEAN CORPUSCULAR HEMOGLOBIN 29.6 PG (27.0-31.0); MEAN CORPUSCULAR VOLUME 89.7 FL (78-98); MEAN PLATELET VOLUME 9.7 FL (7.4-10.4); MONOCYTES # (AUTO) 0.2 X10'3 (0-0.9); MONOCYTES % (AUTO) 3.7 % (2-12); NEUTROPHILS # (AUTO) 5.1 X10'3 (1.8-7.7); NEUTROPHILS % (AUTO) 92.6 % (42-75); PLATELET COUNT 219 X10'3 (140-440); RED BLOOD COUNT 2.61 X10'6 (4.70-6.10); RED CELL DISTRIBUTION WIDTH 17.8 % (11.5-14.5); WHITE BLOOD COUNT 5.5 X10'3 (4.5-11.0)
[2021-08-19 03:31] LABS: ABG BASE EXCESS 12.3 mmol/L (-2.0-2.0); ABG HCO3 38.1 mmol/L (22.0-26.0); ABG OXYGEN SATURATION 90.6 % (94-97); ABG PCO2 (T) 61.2 mmHg (35.0-48.0); ABG PO2 (T) 66.3 mmHg (75.0-100.0); ALLEN'S TEST POSITIVE; FCOHb 0.3 % (0.0-3.9); FMetHb 0.3 % (0.0-1.5); FO2Hb 90.1 % (94-97); PATIENT TEMPERATURE 38.4; PEEP 12 cm H2O; RESPIRATORY RATE 30 b/min; TIDAL VOLUME 425 mL; TOTAL HEMOGLOBIN 8.8 G/dl (14.0-18.0)
[2021-08-19 03:39] LABS: D-DIMER 1.98 MG/L FEU (0-0.50)
[2021-08-19 03:43] LABS: ALANINE AMINOTRANSFERASE 24 U/L (12-78); ALBUMIN 3.7 G/DL (3.4-5.0); ALBUMIN/GLOBULIN RATIO 1.2 (1.1-1.5); ALKALINE PHOSPHATASE 127 IU/L (46-116); ANION GAP 8 (8-16); ASPARTATE AMINO TRANSFERASE 10 U/L (10-37); BILIRUBIN,TOTAL 0.8 MG/DL (0.1-1.0); BLOOD UREA NITROGEN 22 MG/DL (7-18); BUN/CREATININE RATIO 68.8 (5.4-32.0); CALCIUM 8.6 MG/DL (8.5-10.1); CHLORIDE 102 MMOL/L (99-107); CREATININE 0.32 MG/DL (0.60-1.10); GLUCOSE 244 MG/DL (70-104); LACTATE DEHYDROGENASE 242 U/L (85-227); MAGNESIUM 2.2 MG/DL (1.5-2.4); PHOSPHORUS 3.2 MG/DL (2.3-4.5); POTASSIUM 3.8 MMOL/L (3.5-5.1); PREALBUMIN 13.5 MG/DL (19-36); SODIUM 147 MMOL/L (135-145); TOTAL CARBON DIOXIDE 36.9 MMOL/L (24-32); TOTAL PROTEIN 6.8 G/DL (6.4-8.2); eGFR > 90 ML/MIN
[2021-08-19] MEDS: acetaminophen 325mg/10.15ml oral unit dose solution OGT PRN ×2 (05:28→14:11)
[2021-08-19] MEDS: pantoprazole IV 40 MG in normal saline 100ml IV soln 100 ML IV SCH (07:26)
[2021-08-19] MEDS: cefepime 2g/NS 100ml ADVANTAGE 100 ML IV SCH ×2 (07:53→16:06)
[2021-08-19] MEDS: docusate sodium 100mg/10ml UD cup OGT SCH ×2 (08:00→20:00)
[2021-08-19] MEDS: cyclobenzaprine 10mg tablet PO SCH ×2 (08:03→12:55)
[2021-08-19] MEDS: enoxaparin 80mg/0.8ml syringe SUBCUT SCH ×2 (08:04→20:00)
[2021-08-19] MEDS: lactobacillus rhamnosus 10,000 MMU CELLS/CAPSULE OGT SCH ×2 (08:04→20:00)
[2021-08-19] MEDS: quetiapine 100mg tablet PO SCH ×2 (08:04→12:54)
[2021-08-19] MEDS: methylPREDNISolone sod succ/PF 40mg inj. IV SCH (08:31)
[2021-08-19] MEDS: furosemide 40mg/4ml inj IV SCH (08:44)
[2021-08-19] MEDS: propofol 1000mg/100ml bottle 100 ML IV SCH ×5 (09:03→23:46)
[2021-08-19 11:13] LABS: C-REACTIVE PROTEIN 27.43 MG/DL (0.0-0.5)
--- NOTE | 2021-08-19 12:48 | NUR ---
F/u 08/19: Pt Propofol decreased to 15.894ml/hr over past two days; now able to increase TF without overfeeding. RN and MD notified of updated recs below. Recommendations: 1) Given Propofol rate of 15.894mL/hr (420 kcal/day), continuous Vital AF with goal rate of 75mL/hr to provide 1800mL total volume/day, 2160 kcal, 135g protein, and 1458mL water 2) Monitor for adjustments in Propofol rate and adjust TF as appropriate 3) IF Propofol is discontinued, resume continuous Vital AF with goal rate of 85 mL/hr to provide 2040 mL total volume/day, 2448 kcal, 153 g protein, and 1654 mL water 4) Additional 200 mL water flush Q12H per MD; monitor serum Na 5) Prealbumin q Thursday/ 6) Daily scaled weights 7) Routine bowel care 8) PO diet advancement to CHO controlled as medically indicated following extubation; consider BSS with ST prior to PO diet advancement 9) DM education once stable following extubation and official DM dx by physician; A1c 10.1% with no PMH DM in EMR Addendum: 08/19/21 at [address] Amended: Links added.
[2021-08-19] MEDS ORDERED: VANCOMYCIN LEVEL IV ONE (15:30)
[2021-08-19] MEDS: cyclobenzaprine 10mg tablet OGT SCH (20:25)
[2021-08-19] MEDS: quetiapine 100mg tablet OGT SCH (20:26)
[2021-08-19] MEDS: insulin glargine (Lantus) pen - multi-dose SQ SCH (20:28)
[2021-08-19] MEDS: aztreonam inj. 2,000 MG in dextrose 5%-water 100 ML IV SCH (23:44)
[2021-08-20] VITALS (24 sets, daily range): BP systolic 84–136; BP diastolic 39–92
--- NOTE | 2021-08-20 01:00 | NUR ---
Spiking a temp - 38.5 core. ice packs to axilla and groin
[2021-08-20] MEDS: VANCOmycin 1250MG/NS 250ml Bag 250 ML IV SCH ×3 (01:16→16:35)
[2021-08-20] MEDS: mineral oil/petrolatum ophthal oint EACHEYE SCH ×4 (01:17→19:36)
[2021-08-20] MEDS: midazolam 100mg in NS 100ml 100 ML IV PRN ×3 (02:00→19:19)
[2021-08-20] MEDS: insulin regular, human U-100 3ml vial - multi-dose SQ SCH ×4 (02:15→20:06)
[2021-08-20 03:09] LABS: BASOPHILS % (AUTO) 0.3 % (0-1); EOSINOPHILS # (AUTO) 0.4 X10'3 (0-0.9); EOSINOPHILS % (AUTO) 5.5 % (0-6); HEMATOCRIT 25.3 % (42.0-52.0); HEMOGLOBIN 8.2 g/dl (14.0-17.9); LYMPHOCYTES % (AUTO) 13.1 % (21-51); MEAN CORPUSCULAR HEMOGLOBIN 29.1 PG (27.0-31.0); MEAN CORPUSCULAR HGB CONC 32.5 g/dL (33.0-36.5); MEAN CORPUSCULAR VOLUME 89.6 FL (78-98); MEAN PLATELET VOLUME 9.5 FL (7.4-10.4); MONOCYTES # (AUTO) 0.4 X10'3 (0-0.9); MONOCYTES % (AUTO) 6.1 % (2-12); NEUTROPHILS # (AUTO) 5.5 X10'3 (1.8-7.7); PLATELET COUNT 261 X10'3 (140-440); RED BLOOD COUNT 2.82 X10'6 (4.70-6.10); RED CELL DISTRIBUTION WIDTH 18.4 % (11.5-14.5); WHITE BLOOD COUNT 7.3 X10'3 (4.5-11.0)
[2021-08-20 03:28] LABS: ALANINE AMINOTRANSFERASE 35 U/L (12-78); ALBUMIN 3.4 G/DL (3.4-5.0); ALBUMIN/GLOBULIN RATIO 1.1 (1.1-1.5); ALKALINE PHOSPHATASE 111 IU/L (46-116); ANION GAP 4 (8-16); ASPARTATE AMINO TRANSFERASE 15 U/L (10-37); BILIRUBIN,TOTAL 0.5 MG/DL (0.1-1.0); BLOOD UREA NITROGEN 26 MG/DL (7-18); BUN/CREATININE RATIO 108.3 (5.4-32.0); CALCIUM 8.4 MG/DL (8.5-10.1); CHLORIDE 108 MMOL/L (99-107); CREATININE 0.24 MG/DL (0.60-1.10); GLUCOSE 95 MG/DL (70-104); LACTATE DEHYDROGENASE 270 U/L (85-227); MAGNESIUM 2.2 MG/DL (1.5-2.4); PHOSPHORUS 1.9 MG/DL (2.3-4.5); SODIUM 149 MMOL/L (135-145); TOTAL CARBON DIOXIDE 36.6 MMOL/L (24-32); TOTAL PROTEIN 6.5 G/DL (6.4-8.2); TRIGLYCERIDES 138 MG/DL (20-135); eGFR > 90 ML/MIN
[2021-08-20] MEDS: CISatracurium besylate inj. 100 MG in normal saline 100ml IV soln 90 ML IV PRN ×4 (03:29→23:22)
--- NOTE | 2021-08-20 03:30 | NUR ---
call rec'd from lab. K+ 2.8. will replace with 80mEq of Potassium as ordered
[2021-08-20 03:36] LABS: POTASSIUM 2.8 MMOL/L (3.5-5.1)
[2021-08-20] MEDS: potassium Cl 20mEq/100mL bag 100 ML IV PRN ×3 (03:40→06:06)
[2021-08-20 03:52] LABS: ANISOCYTOSIS 2+; PLATELET ESTIMATE NORMAL; TOTAL CELLS COUNTED 100
[2021-08-20 03:53] LABS: POLYCHROMASIA FEW
[2021-08-20 04:02] LABS: ABG BASE EXCESS 12.1 mmol/L (-2.0-2.0); ABG HCO3 37.9 mmol/L (22.0-26.0); ABG OXYGEN SATURATION 90.9 % (94-97); ABG PCO2 (T) 62.5 mmHg (35.0-48.0); ABG PO2 (T) 65.7 mmHg (75.0-100.0); ALLEN'S TEST Modified; FCOHb 0.8 % (0.0-3.9); FMetHb 0.2 % (0.0-1.5); PATIENT TEMPERATURE 38.9; PEEP 12 cm H2O; RESPIRATORY RATE 30 b/min; TIDAL VOLUME 425 mL; TOTAL HEMOGLOBIN 8.9 G/dl (14.0-18.0)
[2021-08-20 04:53] LABS: CREATINE KINASE 107 U/L (39-308)
[2021-08-20] MEDS: acetaminophen 325mg/10.15ml oral unit dose solution OGT PRN ×3 (05:00→17:26)
[2021-08-20] MEDS: propofol 1000mg/100ml bottle 100 ML IV SCH ×2 (05:14→11:18)
[2021-08-20] MEDS: ibuprofen 200mg tablet OGT PRN ×2 (05:14→19:37)
[2021-08-20] MEDS ORDERED: potassium phosphate inj 30 MMOL in normal saline 500ml IV soln 500 ML IV ONE (06:00)
[2021-08-20 07:02] LABS: C-REACTIVE PROTEIN 12.15 MG/DL (0.0-0.5)
[2021-08-20] MEDS: pantoprazole IV 40 MG in normal saline 100ml IV soln 100 ML IV SCH (07:14)
[2021-08-20] MEDS: docusate sodium 100mg/10ml UD cup OGT SCH ×2 (07:21→19:36)
[2021-08-20] MEDS: aztreonam inj. 2,000 MG in dextrose 5%-water 100 ML IV SCH (07:47)
[2021-08-20] MEDS: cyclobenzaprine 10mg tablet OGT SCH (08:51)
[2021-08-20] MEDS: lactobacillus rhamnosus 10,000 MMU CELLS/CAPSULE OGT SCH ×2 (08:52→19:36)
[2021-08-20] MEDS: quetiapine 100mg tablet OGT SCH ×3 (08:52→20:03)
[2021-08-20] MEDS: methylPREDNISolone sod succ/PF 40mg inj. IV SCH (08:52)
[2021-08-20] MEDS: enoxaparin 80mg/0.8ml syringe SUBCUT SCH ×2 (08:52→19:37)
[2021-08-20] MEDS: fentaNYL/PF inj 2,500 MCG in normal saline 250ml IV soln 200 ML IV PRN (08:55)
[2021-08-20] MEDS ORDERED: tPA-cathflo 2 MG/2 ml IV flush IVF ONE (09:20)
[2021-08-20 10:13] LABS: CLARITY,URINE SLIGHTLY CLOUDY (Clear); GLUCOSE, URINE NEGATIVE (Neg); KETONES,URINE TRACE mg/dl (Neg); LEUKOCYTE ESTERASE ,URINE NEGATIVE (Neg); NITRITES, URINE NEGATIVE (Neg); OCCULT BLOOD,URINE NEGATIVE (Neg); PROTEIN,URINE 100 mg/dl (Neg)
[2021-08-20 10:23] LABS: COLOR,URINE DARK YELLOW (Yellow); UA COLLECTION TYPE FOLEY CATH
[2021-08-20 10:48] LABS: AMORPHOUS URATES 1+; BACTERIA,URINE FEW /HPF (Neg); MUCUS STRANDS FEW /LPF (Neg); RBC,URINE 0-2 /HPF (0-2); RENAL CELLS, URINE FEW /HPF; SQUAMOUS EPITHELIAL CELL,UR NONE SEEN /LPF (FEW); TRANSITIONAL EPI CELLS,URINE FEW /HPF; WBC,URINE 0-4 /HPF (0-4)
[2021-08-20 10:49] LABS: HYALINE CASTS 0-3 /LPF (NEGATIVE)
--- NOTE | 2021-08-20 11:43 | NUR ---
Reassessment: Pt remains intubated and tolerating TF at new goal rate of 75 mL/hr. No changes in Propofol rate since TF rate adjustment. LBM 08/20 with 300 mL stool output per I&O. No further changes to nutrition recommendations at this time. Will continue to follow. Recommendations: 1) Given Propofol rate of 15.894mL/hr (420 kcal/day), continuous Vital AF with goal rate of 75 mL/hr to provide 1800 mL total volume/day, 2160 kcal, 135 g protein, and 1458 mL water 2) Monitor for adjustments in Propofol rate and adjust TF as appropriate 3) IF Propofol is discontinued, resume continuous Vital AF with goal rate of 85 mL/hr to provide 2040 mL total volume/day, 2448 kcal, 153 g protein, and 1654 mL water 4) Additional 200 mL water flush Q12H per MD; monitor serum Na 5) Prealbumin q Thursday/ 6) Daily scaled weights 7) Routine bowel care 8) PO diet advancement to CHO controlled as medically indicated following extubation; consider BSS with ST prior to PO diet advancement 9) DM education once stable following extubation and official DM dx by physician; A1c 10.1% with no PMH DM in EMR Addendum: 08/20/21 at [address] Amended: Links added.
[2021-08-20] MEDS ORDERED: levoFLOXACIN-Levaquin 500mg/D5 100 ML IV ONE (12:10)
--- NOTE | 2021-08-20 13:14 | NUR ---
supine for 1 hours right side down 62 degrees with 6 min dwell, left side down 20degress no dwell time, fio2 100% removed face shield after determining pt will tolerate supine at these settings, iced faced, shaved, then rotated for 50mins then broke upper bed and changed B CT dressings (green smelly drainage) and changed linen. Then returned to prone. Sats 85% when parked.
[2021-08-20] MEDS: insulin glargine (Lantus) pen - multi-dose SQ SCH (20:07)
[2021-08-20] MEDS ORDERED: VANCOMYCIN LEVEL IV ONE (23:30)
[2021-08-21] VITALS (25 sets, daily range): BP systolic 82–150; BP diastolic 38–93
[2021-08-21] MEDS: midazolam 100mg in NS 100ml 100 ML IV PRN ×5 (00:18→21:38)
[2021-08-21] MEDS: fentaNYL/PF inj 2,500 MCG in normal saline 250ml IV soln 200 ML IV PRN ×4 (00:19→23:45)
[2021-08-21] MEDS: propofol 1000mg/100ml bottle 100 ML IV SCH ×4 (02:00→21:38)
[2021-08-21] MEDS: mineral oil/petrolatum ophthal oint EACHEYE SCH ×4 (02:01→20:30)
[2021-08-21] MEDS: insulin regular, human U-100 3ml vial - multi-dose SQ SCH ×3 (02:12→20:38)
[2021-08-21 03:30] LABS: BASOPHILS % (AUTO) 0.3 % (0-1); EOSINOPHILS # (AUTO) 0.4 X10'3 (0-0.9); EOSINOPHILS % (AUTO) 6.4 % (0-6); HEMOGLOBIN 7.3 g/dl (14.0-17.9); LYMPHOCYTES % (AUTO) 15.3 % (21-51); MEAN CORPUSCULAR HEMOGLOBIN 29.4 PG (27.0-31.0); MEAN CORPUSCULAR HGB CONC 33.1 g/dL (33.0-36.5); MEAN PLATELET VOLUME 9.2 FL (7.4-10.4); MONOCYTES # (AUTO) 0.5 X10'3 (0-0.9); MONOCYTES % (AUTO) 7.1 % (2-12); NEUTROPHILS # (AUTO) 4.6 X10'3 (1.8-7.7); NEUTROPHILS % (AUTO) 70.9 % (42-75); PLATELET COUNT 226 X10'3 (140-440); RED BLOOD COUNT 2.47 X10'6 (4.70-6.10); RED CELL DISTRIBUTION WIDTH 18.2 % (11.5-14.5); WHITE BLOOD COUNT 6.5 X10'3 (4.5-11.0)
[2021-08-21] MEDS: CISatracurium besylate inj. 100 MG in normal saline 100ml IV soln 90 ML IV PRN ×4 (03:33→19:20)
[2021-08-21 03:44] LABS: D-DIMER 2.56 MG/L FEU (0-0.50)
[2021-08-21 03:50] LABS: ALANINE AMINOTRANSFERASE 37 U/L (12-78); ALBUMIN 2.7 G/DL (3.4-5.0); ALBUMIN/GLOBULIN RATIO 0.8 (1.1-1.5); ALKALINE PHOSPHATASE 91 IU/L (46-116); ANION GAP 3 (8-16); ASPARTATE AMINO TRANSFERASE 11 U/L (10-37); BILIRUBIN,TOTAL 0.4 MG/DL (0.1-1.0); BLOOD UREA NITROGEN 24 MG/DL (7-18); BUN/CREATININE RATIO 114.3 (5.4-32.0); CALCIUM 8.2 MG/DL (8.5-10.1); CHLORIDE 107 MMOL/L (99-107); CREATININE 0.21 MG/DL (0.60-1.10); GLUCOSE 99 MG/DL (70-104); LACTATE DEHYDROGENASE 274 U/L (85-227); MAGNESIUM 2.1 MG/DL (1.5-2.4); PHOSPHORUS 2.3 MG/DL (2.3-4.5); POTASSIUM 3.5 MMOL/L (3.5-5.1); SODIUM 146 MMOL/L (135-145); TOTAL CARBON DIOXIDE 36.4 MMOL/L (24-32); eGFR > 90 ML/MIN
[2021-08-21 05:09] LABS: ABG BASE EXCESS 11.4 mmol/L (-2.0-2.0); ABG HCO3 36.4 mmol/L (22.0-26.0); ABG OXYGEN SATURATION 90.3 % (94-97); ABG PO2 (T) 55.7 mmHg (75.0-100.0); ALLEN'S TEST Modified; FCOHb 0.3 % (0.0-3.9); FMetHb 0.3 % (0.0-1.5); FO2Hb 89.8 % (94-97); PATIENT TEMPERATURE 36.9; PEEP 12 cm H2O; RESPIRATORY RATE 30 b/min; TOTAL HEMOGLOBIN 7.5 G/dl (14.0-18.0)
--- NOTE | 2021-08-21 06:30 | NUR ---
Patient in room CICU 2008. I have received report from Alessandra BOWEN and had the opportunity to ask questions and assume patient care.
[2021-08-21] MEDS: quetiapine 100mg tablet OGT SCH ×3 (07:42→20:30)
[2021-08-21] MEDS: docusate sodium 100mg/10ml UD cup OGT SCH ×2 (07:42→20:30)
[2021-08-21] MEDS: lactobacillus rhamnosus 10,000 MMU CELLS/CAPSULE OGT SCH ×2 (07:42→20:30)
[2021-08-21] MEDS: methylPREDNISolone sod succ/PF 40mg inj. IV SCH (07:42)
[2021-08-21] MEDS: enoxaparin 80mg/0.8ml syringe SUBCUT SCH ×2 (07:43→20:30)
[2021-08-21] MEDS: levoFLOXACIN-Levaquin 500mg/D5 100 ML IV SCH (07:44)
[2021-08-21] MEDS: dextrose 50%-water 50ml dispensing syringe IV PRN (07:53)
[2021-08-21] MEDS: pantoprazole IV 40 MG in normal saline 100ml IV soln 100 ML IV SCH (07:57)
[2021-08-21] MEDS: acetaminophen 325mg/10.15ml oral unit dose solution OGT PRN (11:37)
[2021-08-21] MEDS: ibuprofen 200mg tablet OGT PRN (12:42)
--- NOTE | 2021-08-21 13:20 | NUR ---
charge nurse notified of supine attempt, 2 RNs bedside and aide to supine patient. Increased fio2 to 100% in preparation of supination. Patient supined, rotated patient left to right for 10minutes before stopping the bed to adjust patient in bed, replace ET securement device, provide garcia care and to inspect skin. Patients left chest tube has a malave/green drainage seen in chest tube, tubing. Chest tube dressings are mildly soiled, due to patients poor oxygenation and tolerance of supine i was unable to change these or perform wound care order tasks. On 100% fio2 patient desaturated to 85%, patient was then secured with all pads, straps and face guard in place and re-proned. Patient lasted supine for approximately 30mins.
--- NOTE | 2021-08-21 18:30 | NUR ---
Patient in room CICU 2008. I have received report from Gifty BOWEN and had the opportunity to ask questions and assume patient care.
--- NOTE | 2021-08-21 18:37 | NUR ---
Problems reprioritized. Patient report given, questions answered & plan of care reviewed with Vick BOWEN.
[2021-08-21] MEDS: insulin glargine (Lantus) pen - multi-dose SQ SCH (20:39)
--- NOTE | 2021-08-21 21:53 | NUR ---
FiO2 increased from 65% to 70% after PT O2 sat repeatedly decreasing to 84% when in rotation with LT side up. PT O2 bolus with 100% and O2 sat back up to mid 90's and would then trend back down to mid 80's. PT now tolerating FiO2 of 70%, O2 sat remaining in the 90's. Will continue to monitor.
[2021-08-22] VITALS (24 sets, daily range): BP systolic 87–130; BP diastolic 46–86
[2021-08-22] MEDS: CISatracurium besylate inj. 100 MG in normal saline 100ml IV soln 90 ML IV PRN ×6 (00:25→21:29)
[2021-08-22] MEDS: mineral oil/petrolatum ophthal oint EACHEYE SCH ×4 (01:35→20:00)
[2021-08-22] MEDS: propofol 1000mg/100ml bottle 100 ML IV SCH ×6 (01:35→21:29)
[2021-08-22] MEDS: insulin regular, human U-100 3ml vial - multi-dose SQ SCH ×4 (02:44→20:42)
[2021-08-22] MEDS: midazolam 100mg in NS 100ml 100 ML IV PRN ×4 (03:19→19:57)
[2021-08-22 03:42] LABS: ALANINE AMINOTRANSFERASE 35 U/L (12-78); ALBUMIN 2.4 G/DL (3.4-5.0); ALBUMIN/GLOBULIN RATIO 0.9 (1.1-1.5); ALKALINE PHOSPHATASE 82 IU/L (46-116); ANION GAP 3 (8-16); ASPARTATE AMINO TRANSFERASE 8 U/L (10-37); BILIRUBIN,TOTAL 0.4 MG/DL (0.1-1.0); BLOOD UREA NITROGEN 25 MG/DL (7-18); BUN/CREATININE RATIO 96.2 (5.4-32.0); CALCIUM 7.9 MG/DL (8.5-10.1); CHLORIDE 106 MMOL/L (99-107); CREATININE 0.26 MG/DL (0.60-1.10); GLUCOSE 127 MG/DL (70-104); LACTATE DEHYDROGENASE 242 U/L (85-227); MAGNESIUM 2.2 MG/DL (1.5-2.4); PHOSPHORUS 2.6 MG/DL (2.3-4.5); POTASSIUM 3.7 MMOL/L (3.5-5.1); PREALBUMIN 13.8 MG/DL (19-36); SODIUM 144 MMOL/L (135-145); TOTAL CARBON DIOXIDE 35.3 MMOL/L (24-32); TOTAL PROTEIN 5.2 G/DL (6.4-8.2); eGFR > 90 ML/MIN
[2021-08-22 04:28] LABS: ABG BASE EXCESS 5.5 mmol/L (-2.0-2.0); ABG HCO3 29.9 mmol/L (22.0-26.0); ABG OXYGEN SATURATION 93.3 % (94-97); ABG PCO2 (T) 43.2 mmHg (35.0-48.0); ABG PO2 (T) 66.5 mmHg (75.0-100.0); ALLEN'S TEST POSITIVE; FCOHb 0.5 % (0.0-3.9); FMetHb 0.6 % (0.0-1.5); FO2Hb 92.3 % (94-97); PEEP 12 cm H2O; RESPIRATORY RATE 30 b/min; TIDAL VOLUME 425 mL; TOTAL HEMOGLOBIN 7.3 G/dl (14.0-18.0)
[2021-08-22 04:31] LABS: BASOPHILS % (AUTO) 0.4 % (0-1); EOSINOPHILS # (AUTO) 0.4 X10'3 (0-0.9); EOSINOPHILS % (AUTO) 5.2 % (0-6); LYMPHOCYTES # (AUTO) 1.4 X10'3 (1.1-4.8); LYMPHOCYTES % (AUTO) 19.5 % (21-51); MEAN CORPUSCULAR HEMOGLOBIN 29.3 PG (27.0-31.0); MEAN CORPUSCULAR HGB CONC 32.8 g/dL (33.0-36.5); MEAN CORPUSCULAR VOLUME 89.4 FL (78-98); MEAN PLATELET VOLUME 9.4 FL (7.4-10.4); MONOCYTES # (AUTO) 0.4 X10'3 (0-0.9); MONOCYTES % (AUTO) 6.1 % (2-12); NEUTROPHILS # (AUTO) 4.9 X10'3 (1.8-7.7); NEUTROPHILS % (AUTO) 68.8 % (42-75); PLATELET COUNT 225 X10'3 (140-440); RED BLOOD COUNT 2.35 X10'6 (4.70-6.10); RED CELL DISTRIBUTION WIDTH 18.5 % (11.5-14.5)
[2021-08-22 04:34] LABS: HEMOGLOBIN 6.9 g/dl (14.0-17.9)
[2021-08-22 04:41] LABS: D-DIMER 3.32 MG/L FEU (0-0.50)
[2021-08-22 04:44] LABS: ALANINE AMINOTRANSFERASE 33 U/L (12-78); ALBUMIN 2.3 G/DL (3.4-5.0); ALBUMIN/GLOBULIN RATIO 0.8 (1.1-1.5); ALKALINE PHOSPHATASE 82 IU/L (46-116); ANION GAP 4 (8-16); ASPARTATE AMINO TRANSFERASE 9 U/L (10-37); BILIRUBIN,TOTAL 0.4 MG/DL (0.1-1.0); BLOOD UREA NITROGEN 24 MG/DL (7-18); BUN/CREATININE RATIO 88.9 (5.4-32.0); CALCIUM 8.1 MG/DL (8.5-10.1); CHLORIDE 106 MMOL/L (99-107); CREATININE 0.27 MG/DL (0.60-1.10); GLUCOSE 120 MG/DL (70-104); LACTATE DEHYDROGENASE 243 U/L (85-227); MAGNESIUM 2.1 MG/DL (1.5-2.4); PHOSPHORUS 2.4 MG/DL (2.3-4.5); POTASSIUM 3.4 MMOL/L (3.5-5.1); PREALBUMIN 13.9 MG/DL (19-36); SODIUM 144 MMOL/L (135-145); TOTAL CARBON DIOXIDE 34.4 MMOL/L (24-32); TOTAL PROTEIN 5.3 G/DL (6.4-8.2); eGFR > 90 ML/MIN
--- NOTE | 2021-08-22 05:00 | NUR ---
Received critical HGB of 6.9 and HCT of 21.0. Reported in AM rounds and orders received for Type and Screen. PT does not have consent for transfusions, will need to be obtained from family. VSS. Will continue to monitor.
--- NOTE | 2021-08-22 06:37 | NUR ---
Problems reprioritized. Patient report given, questions answered & plan of care reviewed with Rayo BOWEN.
[2021-08-22] MEDS: pantoprazole IV 40 MG in normal saline 100ml IV soln 100 ML IV SCH (07:04)
[2021-08-22] MEDS: levoFLOXACIN-Levaquin 500mg/D5 100 ML IV SCH (07:04)
[2021-08-22] MEDS: fentaNYL/PF inj 2,500 MCG in normal saline 250ml IV soln 200 ML IV PRN ×3 (07:06→23:32)
[2021-08-22] MEDS: quetiapine 100mg tablet OGT SCH ×3 (07:28→20:11)
[2021-08-22] MEDS: enoxaparin 80mg/0.8ml syringe SUBCUT SCH ×2 (07:28→20:11)
[2021-08-22] MEDS: docusate sodium 100mg/10ml UD cup OGT SCH ×2 (07:28→20:11)
[2021-08-22] MEDS: lactobacillus rhamnosus 10,000 MMU CELLS/CAPSULE OGT SCH ×2 (07:28→20:11)
[2021-08-22] MEDS: methylPREDNISolone sod succ/PF 40mg inj. IV SCH (07:28)
[2021-08-22] MEDS: potassium Cl 20mEq/100mL bag 100 ML IV PRN ×2 (07:35→11:04)
[2021-08-22 15:45] LABS: OCCULT BLOOD STOOL POSITIVE (Neg)
--- NOTE | 2021-08-22 18:24 | NUR ---
Problems reprioritized. Patient report given, questions answered & plan of care reviewed with Vick BOWEN.
--- NOTE | 2021-08-22 18:30 | NUR ---
Patient in room CICU 2008. I have received report from Rayo BOWEN and had the opportunity to ask questions and assume patient care.
[2021-08-22] MEDS: insulin glargine (Lantus) pen - multi-dose SQ SCH (20:40)
[2021-08-23] VITALS (24 sets, daily range): BP systolic 90–156; BP diastolic 44–92
[2021-08-23] MEDS: mineral oil/petrolatum ophthal oint EACHEYE SCH ×4 (02:16→19:54)
[2021-08-23] MEDS: midazolam 100mg in NS 100ml 100 ML IV PRN ×5 (02:17→22:39)
[2021-08-23] MEDS: propofol 1000mg/100ml bottle 100 ML IV SCH ×8 (02:17→22:58)
[2021-08-23] MEDS: insulin regular, human U-100 3ml vial - multi-dose SQ SCH ×4 (02:36→20:05)
[2021-08-23 02:50] LABS: BASOPHILS % (AUTO) 0.3 % (0-1); EOSINOPHILS # (AUTO) 0.4 X10'3 (0-0.9); EOSINOPHILS % (AUTO) 4.8 % (0-6); HEMATOCRIT 22.8 % (42.0-52.0); HEMOGLOBIN 7.5 g/dl (14.0-17.9); LYMPHOCYTES # (AUTO) 1.7 X10'3 (1.1-4.8); LYMPHOCYTES % (AUTO) 21.5 % (21-51); MEAN CORPUSCULAR HEMOGLOBIN 29.1 PG (27.0-31.0); MEAN CORPUSCULAR HGB CONC 32.8 g/dL (33.0-36.5); MEAN CORPUSCULAR VOLUME 88.7 FL (78-98); MEAN PLATELET VOLUME 9.5 FL (7.4-10.4); MONOCYTES # (AUTO) 0.4 X10'3 (0-0.9); MONOCYTES % (AUTO) 5.1 % (2-12); NEUTROPHILS # (AUTO) 5.4 X10'3 (1.8-7.7); NEUTROPHILS % (AUTO) 68.3 % (42-75); PLATELET COUNT 251 X10'3 (140-440); RED BLOOD COUNT 2.57 X10'6 (4.70-6.10); RED CELL DISTRIBUTION WIDTH 18.9 % (11.5-14.5); WHITE BLOOD COUNT 7.9 X10'3 (4.5-11.0)
[2021-08-23 03:01] LABS: D-DIMER 2.93 MG/L FEU (0-0.50)
[2021-08-23 03:05] LABS: ALANINE AMINOTRANSFERASE 34 U/L (12-78); ALBUMIN 2.3 G/DL (3.4-5.0); ALBUMIN/GLOBULIN RATIO 0.7 (1.1-1.5); ALKALINE PHOSPHATASE 85 IU/L (46-116); ANION GAP 4 (8-16); ASPARTATE AMINO TRANSFERASE 13 U/L (10-37); BILIRUBIN,TOTAL 0.4 MG/DL (0.1-1.0); BLOOD UREA NITROGEN 21 MG/DL (7-18); C-REACTIVE PROTEIN 13.02 MG/DL (0.0-0.5); CALCIUM 8.2 MG/DL (8.5-10.1); CHLORIDE 105 MMOL/L (99-107); CREATININE 0.21 MG/DL (0.60-1.10); GLUCOSE 114 MG/DL (70-104); LACTATE DEHYDROGENASE 252 U/L (85-227); PHOSPHORUS 3.5 MG/DL (2.3-4.5); POTASSIUM 3.9 MMOL/L (3.5-5.1); SODIUM 142 MMOL/L (135-145); TOTAL CARBON DIOXIDE 33.5 MMOL/L (24-32); TOTAL PROTEIN 5.7 G/DL (6.4-8.2); eGFR > 90 ML/MIN
[2021-08-23] MEDS: CISatracurium besylate inj. 100 MG in normal saline 100ml IV soln 90 ML IV PRN ×6 (03:21→21:39)
[2021-08-23 03:40] LABS: ABG BASE EXCESS 6.4 mmol/L (-2.0-2.0); ABG HCO3 31.7 mmol/L (22.0-26.0); ABG OXYGEN SATURATION 95.5 % (94-97); ABG PCO2 (T) 50.6 mmHg (35.0-48.0); ABG PO2 (T) 82.2 mmHg (75.0-100.0); FCOHb 0.6 % (0.0-3.9); FMetHb 0.2 % (0.0-1.5); FO2Hb 94.7 % (94-97); PATIENT TEMPERATURE 37.2; PEEP 12 cm H2O; RESPIRATORY RATE 30 b/min; TIDAL VOLUME 425 mL; TOTAL HEMOGLOBIN 8.4 G/dl (14.0-18.0)
[2021-08-23 04:55] LABS: TOTAL CELLS COUNTED 100
[2021-08-23 04:56] LABS: ANISOCYTOSIS 2+; LARGE PLATELETS FEW; PLATELET ESTIMATE NORMAL; POLYCHROMASIA FEW
--- NOTE | 2021-08-23 06:17 | NUR ---
Problems reprioritized. Patient report given, questions answered & plan of care reviewed with Rayo BOWEN.
[2021-08-23] MEDS: levoFLOXACIN-Levaquin 500mg/D5 100 ML IV SCH (07:16)
[2021-08-23] MEDS: pantoprazole IV 40 MG in normal saline 100ml IV soln 100 ML IV SCH (07:16)
[2021-08-23] MEDS: docusate sodium 100mg/10ml UD cup OGT SCH ×2 (07:16→19:54)
[2021-08-23] MEDS: quetiapine 100mg tablet OGT SCH ×3 (07:17→19:55)
[2021-08-23] MEDS: lactobacillus rhamnosus 10,000 MMU CELLS/CAPSULE OGT SCH ×2 (07:17→19:55)
[2021-08-23] MEDS: enoxaparin 80mg/0.8ml syringe SUBCUT SCH ×2 (07:18→19:55)
[2021-08-23] MEDS: fentaNYL/PF inj 2,500 MCG in normal saline 250ml IV soln 200 ML IV PRN ×3 (07:19→21:58)
[2021-08-23] MEDS ORDERED: methylPREDNISolone sod succ/PF 40mg inj. IV SCH (08:00)
[2021-08-23] MEDS ORDERED: pantoprazole 40MG/NS 100ML BAG 100 ML IV SCH (11:00)
[2021-08-23] MEDS: pantoprazole 40MG/NS 100ML BAG 100 ML IV SCH ×3 (12:13→20:29)
--- NOTE | 2021-08-23 12:17 | NUR ---
Reassessment: Pt remains intubated and tolerating TF with GRV WNL. Noted Propofol rate has increased to max rate of 26.49 mL/hr providing 699 kcal/day. TC to RN with recommendation to decrease TF goal rate to 65 mL/hr as to not overfeed while on the vent, EMR updated. LBM 08/22 documented with 200 mL stool output per I&O. Pt receiving routine bowel care. Will continue to follow and make recommendations as appropriate. Recommendations: 1) Given Propofol rate of 26.49 mL/hr (699 kcal/day), continuous Vital AF with goal rate of 65 mL/hr to provide 1560 mL total volume/day, 1872 kcal, 117 g protein, and 1265 mL water 2) Monitor for adjustments in Propofol rate and adjust TF as appropriate 3) IF Propofol is discontinued, resume continuous Vital AF with goal rate of 85 mL/hr to provide 2040 mL total volume/day, 2448 kcal, 153 g protein, and 1654 mL water 4) Additional 200 mL water flush Q12H per MD; monitor serum Na 5) Prealbumin q Thursday/ 6) Daily scaled weights 7) Routine bowel care 8) PO diet advancement to CHO controlled as medically indicated following extubation; Will need BSS with ST prior to PO diet advancement 9) DM education once stable following extubation and official DM dx by physician; A1c 10.1% with no PMH DM in EMR Addendum: 08/23/21 at [address] Amended: Links added.
--- NOTE | 2021-08-23 18:08 | NUR ---
Problems reprioritized. Patient report given, questions answered & plan of care reviewed with Homero BOWEN.
--- NOTE | 2021-08-23 18:25 | NUR ---
Patient in room CICU 2009. I have received report from Rayo and had the opportunity to ask questions and assume patient care.
[2021-08-23] MEDS: insulin glargine (Lantus) pen - multi-dose SQ SCH (20:06)
[2021-08-24] VITALS (24 sets, daily range): BP systolic 95–171; BP diastolic 42–95
[2021-08-24] MEDS: CISatracurium besylate inj. 100 MG in normal saline 100ml IV soln 90 ML IV PRN ×8 (00:54→21:09)
[2021-08-24 01:02] LABS: BASOPHILS % (AUTO) 0.3 % (0-1); EOSINOPHILS # (AUTO) 0.3 X10'3 (0-0.9); EOSINOPHILS % (AUTO) 3.4 % (0-6); HEMOGLOBIN 7.2 g/dl (14.0-17.9); LYMPHOCYTES # (AUTO) 1.5 X10'3 (1.1-4.8); LYMPHOCYTES % (AUTO) 18.1 % (21-51); MEAN CORPUSCULAR HEMOGLOBIN 29.7 PG (27.0-31.0); MEAN CORPUSCULAR HGB CONC 33.3 g/dL (33.0-36.5); MEAN CORPUSCULAR VOLUME 89.2 FL (78-98); MEAN PLATELET VOLUME 9.1 FL (7.4-10.4); MONOCYTES # (AUTO) 0.4 X10'3 (0-0.9); MONOCYTES % (AUTO) 4.9 % (2-12); NEUTROPHILS # (AUTO) 6.1 X10'3 (1.8-7.7); NEUTROPHILS % (AUTO) 73.3 % (42-75); PLATELET COUNT 261 X10'3 (140-440); RED BLOOD COUNT 2.43 X10'6 (4.70-6.10); RED CELL DISTRIBUTION WIDTH 19.1 % (11.5-14.5); WHITE BLOOD COUNT 8.4 X10'3 (4.5-11.0)
[2021-08-24 01:05] LABS: HEMATOCRIT 21.7 % (42.0-52.0)
[2021-08-24] MEDS: pantoprazole 40MG/NS 100ML BAG 100 ML IV SCH ×6 (01:10→22:21)
[2021-08-24 01:11] LABS: ALANINE AMINOTRANSFERASE 13 U/L (12-78); ALBUMIN 2.1 G/DL (3.4-5.0); ALBUMIN/GLOBULIN RATIO 0.7 (1.1-1.5); ALKALINE PHOSPHATASE 86 IU/L (46-116); ANION GAP 3 (8-16); ASPARTATE AMINO TRANSFERASE 9 U/L (10-37); BILIRUBIN,TOTAL 0.3 MG/DL (0.1-1.0); BLOOD UREA NITROGEN 14 MG/DL (7-18); BUN/CREATININE RATIO 77.8 (5.4-32.0); C-REACTIVE PROTEIN 11.97 MG/DL (0.0-0.5); CHLORIDE 104 MMOL/L (99-107); CREATININE 0.18 MG/DL (0.60-1.10); GLUCOSE 61 MG/DL (70-104); LACTATE DEHYDROGENASE 282 U/L (85-227); MAGNESIUM 1.9 MG/DL (1.5-2.4); PHOSPHORUS 4.2 MG/DL (2.3-4.5); POTASSIUM 3.7 MMOL/L (3.5-5.1); SODIUM 141 MMOL/L (135-145); TOTAL CARBON DIOXIDE 33.8 MMOL/L (24-32); TOTAL PROTEIN 5.3 G/DL (6.4-8.2); eGFR > 90 ML/MIN
[2021-08-24] MEDS: mineral oil/petrolatum ophthal oint EACHEYE SCH ×4 (01:11→19:48)
[2021-08-24 01:25] LABS: D-DIMER 2.75 MG/L FEU (0-0.50)
[2021-08-24 01:38] LABS: NUCLEATED RED BLOOD CELLS 3 /100WBC (0-0); TOTAL CELLS COUNTED 100
[2021-08-24 01:39] LABS: ANISOCYTOSIS 2+; PLATELET ESTIMATE NORMAL
[2021-08-24 01:41] LABS: TEAR DROP CELLS FEW
[2021-08-24] MEDS: propofol 1000mg/100ml bottle 100 ML IV SCH ×8 (02:12→23:41)
[2021-08-24] MEDS: midazolam 100mg in NS 100ml 100 ML IV PRN ×5 (02:56→23:40)
[2021-08-24] MEDS: dextrose 50%-water 50ml dispensing syringe IV PRN (04:35)
[2021-08-24] MEDS: fentaNYL/PF inj 2,500 MCG in normal saline 250ml IV soln 200 ML IV PRN ×3 (05:12→20:38)
[2021-08-24 05:24] LABS: ABG HCO3 31.4 mmol/L (22.0-26.0); ABG OXYGEN SATURATION 91.9 % (94-97); ABG PCO2 (T) 51.7 mmHg (35.0-48.0); ABG PO2 (T) 65.3 mmHg (75.0-100.0); ALLEN'S TEST POSITIVE; FCOHb 0.3 % (0.0-3.9); FMetHb 0.3 % (0.0-1.5); FO2Hb 91.3 % (94-97); PATIENT TEMPERATURE 37.5; PEEP 12 cm H2O; RESPIRATORY RATE 30 b/min; TIDAL VOLUME 425 mL
[2021-08-24] MEDS: quetiapine 100mg tablet OGT SCH ×3 (07:31→20:03)
[2021-08-24] MEDS: levoFLOXACIN-Levaquin 500mg/D5 100 ML IV SCH (07:33)
[2021-08-24] MEDS: docusate sodium 100mg/10ml UD cup OGT SCH ×2 (07:33→19:47)
[2021-08-24] MEDS: enoxaparin 80mg/0.8ml syringe SUBCUT SCH ×2 (07:33→19:47)
[2021-08-24] MEDS: lactobacillus rhamnosus 10,000 MMU CELLS/CAPSULE OGT SCH ×2 (07:33→19:48)
[2021-08-24] MEDS: methylPREDNISolone sod succ/PF 40mg inj. IV SCH (07:34)
--- NOTE | 2021-08-24 12:32 | NUR ---
Dr. Guzmán rounding on patient and aware of AM x-ray and continued air-leak. MD also aware of AM labs with H/H remaining low. Continue supining patient as tolerated and Protonix drip.
[2021-08-24] MEDS: insulin regular, human U-100 3ml vial - multi-dose SQ SCH ×2 (13:58→20:05)
--- NOTE | 2021-08-24 18:28 | NUR ---
Problems reprioritized. Patient report given, questions answered & plan of care reviewed with Trinidad BOWEN.
--- NOTE | 2021-08-24 18:33 | NUR ---
Patient in room CICU 2008. I have received report from ANDRÉS Cade and had the opportunity to ask questions and assume patient care.
[2021-08-24] MEDS: insulin glargine (Lantus) pen - multi-dose SQ SCH (20:04)
--- NOTE | 2021-08-24 21:00 | NUR ---
Noted patients heart rate to be tachycardic 120's-130's. Patient hypertensive 170/90's. Train of four found patient to be 3/4 at level 7 to the right ulnar nerve. Patients oxygen saturation decreased to 90%. Patient respirations 31 per minute, over the set rate on ventilator of 30. Nimbex was increased per policy and order. Fentanyl bolus administered per order and policy. Increased FiO2 to 55%. Patient with good response to all interventions, blood pressure, heart rate, respiratory rate all decreased.
[2021-08-25] VITALS (24 sets, daily range): BP systolic 86–184; BP diastolic 31–88
[2021-08-25] MEDS: mineral oil/petrolatum ophthal oint EACHEYE SCH ×4 (01:32→20:17)
[2021-08-25] MEDS: CISatracurium besylate inj. 100 MG in normal saline 100ml IV soln 90 ML IV PRN ×8 (01:33→22:34)
[2021-08-25] MEDS: dextrose 50%-water 50ml dispensing syringe IV PRN (02:02)
--- NOTE | 2021-08-25 02:48 | NUR ---
Patient supine from 0000 - 0210. Patient tolerated position at first with temporary increase in FiO2 to 65% then was able to tolerate titration back to 55%. Bed bath, skin assessment and wound pictures completed. After approximately 2 hours supine with lateral rotation of the bed, patient with decrease in Oxygen saturation to 90 % then progressed to low 80's with only slight recovery with 100% FiO2. Patient packaged and straps secured, patient rotated back to prone position with increase in oxygen saturation to 93-95% on 55% FiO2.
[2021-08-25] MEDS: acetaminophen 325mg/10.15ml oral unit dose solution OGT PRN ×2 (03:07→09:20)
[2021-08-25] MEDS: propofol 1000mg/100ml bottle 100 ML IV SCH ×7 (03:07→22:07)
[2021-08-25 03:24] LABS: ALANINE AMINOTRANSFERASE 27 U/L (12-78); ALBUMIN 2.1 G/DL (3.4-5.0); ALBUMIN/GLOBULIN RATIO 0.6 (1.1-1.5); ALKALINE PHOSPHATASE 117 IU/L (46-116); ANION GAP 5 (8-16); ASPARTATE AMINO TRANSFERASE 14 U/L (10-37); BILIRUBIN,TOTAL 0.3 MG/DL (0.1-1.0); BLOOD UREA NITROGEN 9 MG/DL (7-18); C-REACTIVE PROTEIN 14.83 MG/DL (0.0-0.5); CHLORIDE 103 MMOL/L (99-107); CREATININE 0.18 MG/DL (0.60-1.10); GLUCOSE 65 MG/DL (70-104); LACTATE DEHYDROGENASE 311 U/L (85-227); MAGNESIUM 1.9 MG/DL (1.5-2.4); PHOSPHORUS 4.1 MG/DL (2.3-4.5); POTASSIUM 3.7 MMOL/L (3.5-5.1); SODIUM 141 MMOL/L (135-145); TOTAL CARBON DIOXIDE 32.9 MMOL/L (24-32); TOTAL PROTEIN 5.5 G/DL (6.4-8.2); eGFR > 90 ML/MIN
[2021-08-25 03:28] LABS: D-DIMER 4.62 MG/L FEU (0-0.50)
[2021-08-25] MEDS: pantoprazole 40MG/NS 100ML BAG 100 ML IV SCH ×5 (03:34→19:12)
--- NOTE | 2021-08-25 03:47 | NUR ---
Temp 38.5, Tylenol administered per order. Ice packs applied to patient, back hatches of rotoprone bed open.
[2021-08-25 04:01] LABS: ABG BASE EXCESS 6.8 mmol/L (-2.0-2.0); ABG HCO3 32.2 mmol/L (22.0-26.0); ABG OXYGEN SATURATION 90.3 % (94-97); ABG PCO2 (T) 54.8 mmHg (35.0-48.0); ALLEN'S TEST POSITIVE; FMetHb 0.3 % (0.0-1.5); FO2Hb 89.1 % (94-97); PATIENT TEMPERATURE 38.5; PEEP 12 cm H2O; RESPIRATORY RATE 30 b/min; TIDAL VOLUME 425 mL; TOTAL HEMOGLOBIN 8.2 G/dl (14.0-18.0)
[2021-08-25] MEDS: fentaNYL/PF inj 2,500 MCG in normal saline 250ml IV soln 200 ML IV PRN ×3 (04:06→19:17)
[2021-08-25] MEDS: midazolam 100mg in NS 100ml 100 ML IV PRN ×4 (04:07→20:17)
[2021-08-25 04:27] LABS: BASOPHILS % (AUTO) 0.4 % (0-1); EOSINOPHILS # (AUTO) 0.3 X10'3 (0-0.9); EOSINOPHILS % (AUTO) 3.1 % (0-6); HEMATOCRIT 22.5 % (42.0-52.0); HEMOGLOBIN 7.4 g/dl (14.0-17.9); LYMPHOCYTES # (AUTO) 1.6 X10'3 (1.1-4.8); LYMPHOCYTES % (AUTO) 16.5 % (21-51); MEAN CORPUSCULAR HEMOGLOBIN 29.3 PG (27.0-31.0); MEAN CORPUSCULAR HGB CONC 32.7 g/dL (33.0-36.5); MEAN CORPUSCULAR VOLUME 89.5 FL (78-98); MEAN PLATELET VOLUME 9.1 FL (7.4-10.4); MONOCYTES # (AUTO) 0.5 X10'3 (0-0.9); NEUTROPHILS # (AUTO) 7.5 X10'3 (1.8-7.7); PLATELET COUNT 280 X10'3 (140-440); RED BLOOD COUNT 2.51 X10'6 (4.70-6.10)
--- NOTE | 2021-08-25 05:24 | NUR ---
Rounds with Dr. Zamorano: labs, ABG, and events reviewed with MD. Per MD start weaning off the Nimbex to see if patient is able to come off the bed.
--- NOTE | 2021-08-25 05:26 | NUR ---
Patient supine to prone twice for chest x-ray, patient desaturated to 85%. Patient recovered with increased FiO2 to 100% and placement back into the prone position.
--- NOTE | 2021-08-25 06:32 | NUR ---
Problems reprioritized. Patient report given, questions answered & plan of care reviewed with ANDRÉS Cazares.
[2021-08-25 07:04] LABS: ANISOCYTOSIS 2+; NUCLEATED RED BLOOD CELLS 1 /100WBC (0-0); PLATELET ESTIMATE NORMAL; TOTAL CELLS COUNTED 100
[2021-08-25 07:05] LABS: HYPOCHROMASIA 1+; POLYCHROMASIA 2+; SCHISTOCYTES FEW; TEAR DROP CELLS FEW
[2021-08-25] MEDS: insulin regular, human U-100 3ml vial - multi-dose SQ SCH ×3 (07:26→21:23)
[2021-08-25] MEDS: levoFLOXACIN-Levaquin 500mg/D5 100 ML IV SCH (07:41)
[2021-08-25] MEDS: lactobacillus rhamnosus 10,000 MMU CELLS/CAPSULE OGT SCH ×2 (07:43→20:18)
[2021-08-25] MEDS: docusate sodium 100mg/10ml UD cup OGT SCH ×2 (07:43→20:17)
[2021-08-25] MEDS: quetiapine 100mg tablet OGT SCH ×3 (07:43→20:18)
[2021-08-25] MEDS: methylPREDNISolone sod succ/PF 40mg inj. IV SCH (07:43)
[2021-08-25] MEDS: enoxaparin 80mg/0.8ml syringe SUBCUT SCH ×2 (07:44→20:18)
--- NOTE | 2021-08-25 10:38 | NUR ---
bhagat care not done due to pt. prone Addendum: 08/25/21 at 1039 by Debora Suarez RN Amended: Links added.
--- NOTE | 2021-08-25 10:40 | NUR ---
Pt. was medicated with Tylenol for temp 38.5 @ 0920. Ice packs applied to pt. Fan placed facing pt. Back bed hatches remain open.
--- NOTE | 2021-08-25 12:45 | NUR ---
Pt's brother Leon in to see pt.
--- NOTE | 2021-08-25 12:59 | NUR ---
RN called Dr. Guzmán per brother Leon's request as he has questions for him. Dr. Guzmán stated he would come talk to brother in a bit.
--- NOTE | 2021-08-25 13:23 | NUR ---
Dr. Guzmán spoke with Leon and answered his questions. Leon asked about getting pt. off Rotoprone bed and onto a regular bed. Dr. Guzmán stated pt. would need to be below 50% FI02 and supine to be taken off bed.
--- NOTE | 2021-08-25 14:21 | NUR ---
Pt. proned to assess rectal tube as it seemed to be leaking. Tolerated supination for 2.5 hours.
--- NOTE | 2021-08-25 18:15 | NUR ---
Problems reprioritized. Patient report given, questions answered & plan of care reviewed with Trinidad BOWEN. Addendum: 08/25/21 at 1815 by Debora Suarez RN Amended: Links added.
--- NOTE | 2021-08-25 18:15 | NUR ---
Patient in room CICU 2008. I have received report from ANDRÉS Cazares and had the opportunity to ask questions and assume patient care.
--- NOTE | 2021-08-25 21:08 | NUR ---
Phone call to [facility] Dr. Navas re: Patients blood pressure with MAP in the 50's -low 60's. MD to place orders for Albumin and Levophed if needed.
[2021-08-25] MEDS ORDERED: albumin (human) 25% 100 ML IV solution IV ONE (21:10)
[2021-08-25] MEDS: NORepinephrine inj. 32 MG in normal saline 250ml IV soln 218 ML IV SCH (21:10)
[2021-08-25] MEDS: insulin glargine (Lantus) pen - multi-dose SQ SCH (21:22)
[2021-08-26] VITALS (23 sets, daily range): BP systolic 96–130; BP diastolic 8–77
[2021-08-26] MEDS: NORepinephrine inj. 32 MG in normal saline 250ml IV soln 218 ML IV SCH ×2
[2021-08-26] MEDS: pantoprazole 40MG/NS 100ML BAG 100 ML IV SCH ×5 (00:01→20:27)
[2021-08-26] MEDS: propofol 1000mg/100ml bottle 100 ML IV SCH ×7 (01:25→21:59)
[2021-08-26] MEDS: midazolam 100mg in NS 100ml 100 ML IV PRN ×4 (01:28→16:02)
[2021-08-26] MEDS: mineral oil/petrolatum ophthal oint EACHEYE SCH ×4 (02:03→20:27)
[2021-08-26] MEDS: insulin regular, human U-100 3ml vial - multi-dose SQ SCH ×4 (02:16→22:00)
[2021-08-26 02:23] LABS: BASOPHILS % (AUTO) 0.2 % (0-1); EOSINOPHILS # (AUTO) 0.2 X10'3 (0-0.9); EOSINOPHILS % (AUTO) 1.8 % (0-6); LYMPHOCYTES # (AUTO) 1.6 X10'3 (1.1-4.8); LYMPHOCYTES % (AUTO) 13.3 % (21-51); MEAN CORPUSCULAR HGB CONC 32.3 g/dL (33.0-36.5); MEAN CORPUSCULAR VOLUME 89.8 FL (78-98); MEAN PLATELET VOLUME 9.1 FL (7.4-10.4); MONOCYTES # (AUTO) 0.6 X10'3 (0-0.9); MONOCYTES % (AUTO) 4.7 % (2-12); NEUTROPHILS # (AUTO) 9.7 X10'3 (1.8-7.7); PLATELET COUNT 291 X10'3 (140-440); RED BLOOD COUNT 2.42 X10'6 (4.70-6.10); RED CELL DISTRIBUTION WIDTH 19.6 % (11.5-14.5); WHITE BLOOD COUNT 12.2 X10'3 (4.5-11.0)
[2021-08-26 02:34] LABS: HEMATOCRIT 21.7 % (42.0-52.0)
[2021-08-26 02:36] LABS: D-DIMER 4.18 MG/L FEU (0-0.50)
[2021-08-26 02:41] LABS: ALANINE AMINOTRANSFERASE 30 U/L (12-78); ALBUMIN 2.3 G/DL (3.4-5.0); ALBUMIN/GLOBULIN RATIO 0.7 (1.1-1.5); ALKALINE PHOSPHATASE 191 IU/L (46-116); ASPARTATE AMINO TRANSFERASE 16 U/L (10-37); BILIRUBIN,TOTAL 0.5 MG/DL (0.1-1.0); BLOOD UREA NITROGEN 10 MG/DL (7-18); C-REACTIVE PROTEIN 15.31 MG/DL (0.0-0.5); CALCIUM 8.3 MG/DL (8.5-10.1); GLUCOSE 139 MG/DL (70-104); LACTATE DEHYDROGENASE 281 U/L (85-227); MAGNESIUM 2.1 MG/DL (1.5-2.4); PHOSPHORUS 3.8 MG/DL (2.3-4.5); TOTAL CARBON DIOXIDE 31.8 MMOL/L (24-32); TOTAL PROTEIN 5.7 G/DL (6.4-8.2); eGFR > 90 ML/MIN
[2021-08-26 03:08] LABS: NUCLEATED RED BLOOD CELLS 2 /100WBC (0-0); TOTAL CELLS COUNTED 100
[2021-08-26 03:09] LABS: ANISOCYTOSIS 2+; HYPOCHROMASIA 1+; PLATELET ESTIMATE NORMAL; POLYCHROMASIA 1+; SCHISTOCYTES FEW
[2021-08-26 03:10] LABS: ROULEAUX 1+; TEAR DROP CELLS FEW
[2021-08-26 03:25] LABS: ANION GAP 5 (8-16); CHLORIDE 107 MMOL/L (99-107); POTASSIUM 3.5 MMOL/L (3.5-5.1); SODIUM 144 MMOL/L (135-145)
[2021-08-26] MEDS: fentaNYL/PF inj 2,500 MCG in normal saline 250ml IV soln 200 ML IV PRN ×3 (03:27→18:53)
[2021-08-26] MEDS: CISatracurium besylate inj. 100 MG in normal saline 100ml IV soln 90 ML IV PRN ×7 (03:36→21:57)
--- NOTE | 2021-08-26 04:01 | NUR ---
Dr. Navas called RE: H&H 03/06.7. Orders to hold AM dose of Lovenox and not to resume until H&H improves. Re draw CBC q 4 hours. and Draw PT/ PTT.
[2021-08-26 04:30] LABS: ABG BASE EXCESS 5.9 mmol/L (-2.0-2.0); ABG HCO3 31.1 mmol/L (22.0-26.0); ABG OXYGEN SATURATION 93.9 % (94-97); ABG PCO2 (T) 50.8 mmHg (35.0-48.0); ABG PO2 (T) 77.5 mmHg (75.0-100.0); ALLEN'S TEST POSITIVE; FMetHb 0.1 % (0.0-1.5); FO2Hb 92.9 % (94-97); PATIENT TEMPERATURE 37.5; PEEP 12 cm H2O; RESPIRATORY RATE 30 b/min; TIDAL VOLUME 425 mL; TOTAL HEMOGLOBIN 7.4 G/dl (14.0-18.0)
--- NOTE | 2021-08-26 04:34 | NUR ---
Patient Supine 0215 to present time. Patient skin assessed, bed bath, and catheter care completed. Patient requiring increased FiO2 to 90-100%. hatches secure, ice packs to face. Roroprone bed set to Supine with lateral rotation. Patient was able to tolerate titration of FiO2 down to 80-85%.
[2021-08-26 04:38] LABS: APTT 32 SECONDS (22-32)
--- NOTE | 2021-08-26 05:10 | NUR ---
Supine. Patient saturation decreasing to 80's on 90% FiO2 Addendum: 08/26/21 at 0520 by Didi Smyth RN Patient PRONED
--- NOTE | 2021-08-26 06:13 | NUR ---
Problems reprioritized. Patient report given, questions answered & plan of care reviewed with ANDRÉS Cazares.
--- NOTE | 2021-08-26 06:23 | NUR ---
[facility] 2008. I have received report from Trinidad BOWEN and had the opportunity to ask questions and assume patient care. Addendum: 08/26/21 at 0623 by Debora Suarez RN Amended: Links added.
[2021-08-26] MEDS: levoFLOXACIN-Levaquin 500mg/D5 100 ML IV SCH (07:11)
[2021-08-26] MEDS: lactobacillus rhamnosus 10,000 MMU CELLS/CAPSULE OGT SCH ×2 (07:13→20:27)
[2021-08-26] MEDS: methylPREDNISolone sod succ/PF 40mg inj. IV SCH (07:13)
[2021-08-26] MEDS: docusate sodium 100mg/10ml UD cup OGT SCH ×2 (07:13→20:27)
[2021-08-26] MEDS: lactulose 20gm/30ml cup OGT PRN (07:13)
[2021-08-26] MEDS: quetiapine 100mg tablet OGT SCH ×3 (07:13→20:27)
[2021-08-26 07:17] LABS: BASOPHILS # (AUTO) 0.1 X10'3 (0-0.2); BASOPHILS % (AUTO) 0.5 % (0-1); EOSINOPHILS # (AUTO) 0.3 X10'3 (0-0.9); EOSINOPHILS % (AUTO) 2.3 % (0-6); LYMPHOCYTES # (AUTO) 1.7 X10'3 (1.1-4.8); LYMPHOCYTES % (AUTO) 14.3 % (21-51); MEAN CORPUSCULAR HEMOGLOBIN 29.2 PG (27.0-31.0); MEAN CORPUSCULAR HGB CONC 32.9 g/dL (33.0-36.5); MEAN CORPUSCULAR VOLUME 88.7 FL (78-98); MONOCYTES # (AUTO) 0.5 X10'3 (0-0.9); MONOCYTES % (AUTO) 4.2 % (2-12); NEUTROPHILS # (AUTO) 9.2 X10'3 (1.8-7.7); NEUTROPHILS % (AUTO) 78.7 % (42-75); PLATELET COUNT 306 X10'3 (140-440); RED BLOOD COUNT 2.38 X10'6 (4.70-6.10); RED CELL DISTRIBUTION WIDTH 19.1 % (11.5-14.5); WHITE BLOOD COUNT 11.7 X10'3 (4.5-11.0)
[2021-08-26 07:29] LABS: HEMATOCRIT 21.1 % (42.0-52.0)
--- NOTE | 2021-08-26 07:38 | NUR ---
Dr. Velasquez from [facility] called to inform RN of CXR that RN was already aware of. Will relay findings to Dr. Guzmán.
[2021-08-26 08:15] LABS: ANISOCYTOSIS 2+; HYPOCHROMASIA 1+; PLATELET ESTIMATE NORMAL; POLYCHROMASIA FEW; SCHISTOCYTES FEW; TEAR DROP CELLS FEW; TOTAL CELLS COUNTED 100
--- NOTE | 2021-08-26 08:15 | NUR ---
Lactulose given for constipation. Pt. had had minimal amount of stool in rectal bag over 2 days. Addendum: 08/26/21 at 0816 by Debora Suarez RN Amended: Links added.
[2021-08-26 08:16] LABS: ROULEAUX 1+
[2021-08-26] MEDS ORDERED: normal saline 1000ml 1,000 ML IV ONE (10:00)
--- NOTE | 2021-08-26 10:16 | NUR ---
Dr. Guzmán in to see pt. RN notified him of the followin. H/H 7.0/21.2 2. CXR worse Left pneumo per VNicanor Monteiro MD 3. Lovenox hold order per noc 4. Pt. on Levophed now Order received for 1L NS bolus.
--- NOTE | 2021-08-26 10:23 | NUR ---
Dr. Britton here to see pt.
--- NOTE | 2021-08-26 10:35 | NUR ---
[facility] called for update as pt. "was referred to them a few weeks ago" per caller.
--- NOTE | 2021-08-26 11:12 | NUR ---
F/u 08/26: Pt remains intubated tolerating TF at goal GRV WNL. Propofol remains at 26.49ml/hr per EMR; providing additional 699 kcals/day. Rectal tube -175ml past two days s/p lactulose this AM for lower total stool volume per EMR. Will continue to monitor for further nutrition support adjustment needs on the vent. Recommendations: 1) Given Propofol rate of 26.49 mL/hr (699 kcal/day), continuous Vital AF with goal rate of 65 mL/hr to provide 1560 mL total volume/day, 1872 kcal, 117 g protein, and 1265 mL water 2) Monitor for adjustments in Propofol rate and adjust TF as appropriate 3) IF Propofol is discontinued, resume continuous Vital AF with goal rate of 85 mL/hr to provide 2040 mL total volume/day, 2448 kcal, 153 g protein, and 1654 mL water 4) Additional 200 mL water flush Q12H per MD; monitor serum Na 5) Prealbumin q Thursday/; Daily scaled weights 6) Routine bowel care 7) PO diet advancement to CHO controlled as medically indicated following extubation; Will need BSS with ST prior to PO diet advancement 8) DM education once stable following extubation and official DM dx by physician; A1c 10.1% with no PMH DM in EMR Addendum: 08/26/21 at [address] Amended: Links added.
--- NOTE | 2021-08-26 11:55 | NUR ---
Supined. Chest tube dressing saturated. Dressings changed and secured with tape. Sp02 decreased to 86% on 55% Fi02. Fi02 increased to 65% with Sp02 of 91% while supined. Will keep pt. supined as long as tolerated.
--- NOTE | 2021-08-26 13:13 | NUR ---
Pt. supined for approx. 50". Became tachycardic in the high 130s.
--- NOTE | 2021-08-26 14:21 | NUR ---
Pt's sister Howard called for update. She states she lives in [facility] and would like to come visit when more than one visitor are allowed.
--- NOTE | 2021-08-26 17:05 | NUR ---
RT CT shift output=[address] shift output=60
--- NOTE | 2021-08-26 18:01 | NUR ---
Problems reprioritized. Patient report given, questions answered & plan of care reviewed with NOC RN.
--- NOTE | 2021-08-26 18:30 | NUR ---
Patient in room [facility] 2008. I have received report from Debora BOWEN and had the opportunity to ask questions and assume patient care. Addendum: 08/26/21 at 1907 by Renetta Velazquez RN Amended: Links added.
[2021-08-26] MEDS: enoxaparin 80mg/0.8ml syringe SUBCUT SCH (20:00)
--- NOTE | 2021-08-26 20:52 | NUR ---
Patient requiring increased FiO2 to maintain Sat greater than 88%. Titrating Levophed to maintain MAP. PM Lovenox dose restarted by pharmacy. Dr. Navas notified. Updated MD on patient's current condition. Orders received to hold PM Lovenox dose and minimize placing in supine position.
[2021-08-26] MEDS: insulin glargine (Lantus) pen - multi-dose SQ SCH (22:01)
[2021-08-27] VITALS (26 sets, daily range): BP systolic 88–135; BP diastolic 46–89
[2021-08-27] MEDS: cefTAZidime inj 2 GM in normal saline 100ml IV soln 100 ML IV SCH ×3 (00:07→15:29)
[2021-08-27] MEDS: propofol 1000mg/100ml bottle 100 ML IV SCH ×7 (00:14→20:44)
[2021-08-27] MEDS: pantoprazole 40MG/NS 100ML BAG 100 ML IV SCH ×5 (01:25→20:45)
[2021-08-27] MEDS: CISatracurium besylate inj. 100 MG in normal saline 100ml IV soln 90 ML IV PRN ×7 (01:26→22:50)
[2021-08-27] MEDS: mineral oil/petrolatum ophthal oint EACHEYE SCH ×4 (02:00→20:45)
[2021-08-27] MEDS: fentaNYL/PF inj 2,500 MCG in normal saline 250ml IV soln 200 ML IV PRN ×3 (02:07→17:14)
[2021-08-27 02:40] LABS: BASOPHILS % (AUTO) 0.3 % (0-1); EOSINOPHILS # (AUTO) 0.2 X10'3 (0-0.9); EOSINOPHILS % (AUTO) 1.8 % (0-6); LYMPHOCYTES # (AUTO) 1.4 X10'3 (1.1-4.8); LYMPHOCYTES % (AUTO) 10.7 % (21-51); MEAN CORPUSCULAR HEMOGLOBIN 28.7 PG (27.0-31.0); MEAN CORPUSCULAR HGB CONC 32.3 g/dL (33.0-36.5); MEAN PLATELET VOLUME 8.5 FL (7.4-10.4); MONOCYTES # (AUTO) 0.6 X10'3 (0-0.9); MONOCYTES % (AUTO) 4.5 % (2-12); NEUTROPHILS % (AUTO) 82.7 % (42-75); PLATELET COUNT 315 X10'3 (140-440); RED BLOOD COUNT 2.28 X10'6 (4.70-6.10); RED CELL DISTRIBUTION WIDTH 19.5 % (11.5-14.5); WHITE BLOOD COUNT 13.3 X10'3 (4.5-11.0)
[2021-08-27 02:45] LABS: HEMOGLOBIN 6.6 g/dl (14.0-17.9)
[2021-08-27 02:46] LABS: HEMATOCRIT 20.3 % (42.0-52.0)
[2021-08-27 02:54] LABS: APTT 26 SECONDS (22-32); D-DIMER 4.14 MG/L FEU (0-0.50)
[2021-08-27 02:56] LABS: ALANINE AMINOTRANSFERASE 22 U/L (12-78); ALBUMIN 1.8 G/DL (3.4-5.0); ALBUMIN/GLOBULIN RATIO 0.6 (1.1-1.5); ALKALINE PHOSPHATASE 148 IU/L (46-116); ANION GAP 5 (8-16); ASPARTATE AMINO TRANSFERASE 9 U/L (10-37); BILIRUBIN,TOTAL 0.3 MG/DL (0.1-1.0); BLOOD UREA NITROGEN 9 MG/DL (7-18); BUN/CREATININE RATIO 47.4 (5.4-32.0); C-REACTIVE PROTEIN 10.97 MG/DL (0.0-0.5); CALCIUM 7.8 MG/DL (8.5-10.1); CHLORIDE 108 MMOL/L (99-107); CREATININE 0.19 MG/DL (0.60-1.10); GLUCOSE 138 MG/DL (70-104); LACTATE DEHYDROGENASE 252 U/L (85-227); PHOSPHORUS 3.4 MG/DL (2.3-4.5); POTASSIUM 3.4 MMOL/L (3.5-5.1); SODIUM 146 MMOL/L (135-145); TOTAL CARBON DIOXIDE 32.7 MMOL/L (24-32); eGFR > 90 ML/MIN
[2021-08-27] MEDS: insulin regular, human U-100 3ml vial - multi-dose SQ SCH ×4 (03:29→21:55)
[2021-08-27 03:38] LABS: ANISOCYTOSIS 2+; PLATELET ESTIMATE NORMAL; TOTAL CELLS COUNTED 100
[2021-08-27 03:41] LABS: HYPOCHROMASIA 1+; POLYCHROMASIA 1+
[2021-08-27 03:42] LABS: ELLIPTOCYTES FEW; TEAR DROP CELLS FEW
[2021-08-27 03:47] LABS: ABG BASE EXCESS 5.6 mmol/L (-2.0-2.0); ABG HCO3 29.6 mmol/L (22.0-26.0); ABG PCO2 (T) 41.7 mmHg (35.0-48.0); ALLEN'S TEST POSITIVE; FCOHb 0.3 % (0.0-3.9); FMetHb 0.1 % (0.0-1.5); FO2Hb 93.6 % (94-97); PATIENT TEMPERATURE 37.5; PEEP 12 cm H2O; RESPIRATORY RATE 30 b/min; TIDAL VOLUME 425 mL; TOTAL HEMOGLOBIN 7.5 G/dl (14.0-18.0)
[2021-08-27] MEDS: midazolam 100mg in NS 100ml 100 ML IV PRN ×4 (04:16→17:13)
--- NOTE | 2021-08-27 04:39 | NUR ---
Dr. Bradley updated on patient's condition including AM labs. Notified of H&H of 6.6/20.3 and chest xray. Orders entered by .
[2021-08-27] MEDS: POTASSIUM BICARB 20meq eff tab 20 MEQ TABLET.EFF OGT PRN ×3 (05:40→12:13)
--- NOTE | 2021-08-27 06:29 | NUR ---
Problems reprioritized. Patient report given, questions answered & plan of care reviewed with Debora BOWEN.
--- NOTE | 2021-08-27 06:41 | NUR ---
Patient in room [facility] 2009. I have received report from Renetta BOWEN and had the opportunity to ask questions and assume patient care. Addendum: 08/27/21 at 0641 by Debora Suarez RN Amended: Links added.
[2021-08-27] MEDS: levoFLOXACIN-Levaquin 500mg/D5 100 ML IV SCH (07:40)
[2021-08-27] MEDS: lactobacillus rhamnosus 10,000 MMU CELLS/CAPSULE OGT SCH ×2 (07:40→20:44)
[2021-08-27] MEDS: docusate sodium 100mg/10ml UD cup OGT SCH ×2 (07:40→20:45)
[2021-08-27] MEDS: quetiapine 100mg tablet OGT SCH ×3 (07:40→20:44)
[2021-08-27] MEDS: prednisone 10mg tablet PO SCH (07:42)
[2021-08-27] MEDS: enoxaparin 80mg/0.8ml syringe SUBCUT SCH ×2 (08:11→20:43)
--- NOTE | 2021-08-27 09:35 | NUR ---
Pt. supined at 50% Fi02. Desatted immediately to 87%. Fi02 increased on vent to 65% with Spo2 90%.
--- NOTE | 2021-08-27 12:02 | NUR ---
1100-Pt. supined so Dr. Guzmán could assess left chest tube. Dressing changed. RT changed out ETT braswell. Dressings removed from face. Replaced. Dr. Guzmán stated to keep pt. supine even if the Fi02 has to be at 100%.
--- NOTE | 2021-08-27 12:04 | NUR ---
Right CT atrium full. New Atrium placed. Large airleak noted with new Atrium.
--- NOTE | 2021-08-27 12:28 | NUR ---
Kimble dressings dated 08/25/21 Addendum: 08/27/21 at 1229 by Debora Suarez RN Amended: Links added.
--- NOTE | 2021-08-27 16:10 | NUR ---
Pt. has been supine since 1053 (with one proned time of 5" to remove old draw sheet). Fi02 65-75% while supined.
--- NOTE | 2021-08-27 17:06 | NUR ---
Pt. supined for 6 hours.
--- NOTE | 2021-08-27 18:00 | NUR ---
Problems reprioritized. Patient report given, questions answered & plan of care reviewed with Renetta BOWEN.
--- NOTE | 2021-08-27 18:46 | NUR ---
Patient in room [facility] 2008. I have received report from Debora BOWEN and had the opportunity to ask questions and assume patient care. Addendum: 08/27/21 at 1847 by Renetta Velazquez RN Amended: Links added.
[2021-08-27 20:27] LABS: HEMATOCRIT 25.4 % (42.0-52.0); HEMOGLOBIN 8.3 g/dl (14.0-17.9); MEAN CORPUSCULAR HEMOGLOBIN 29.4 PG (27.0-31.0); MEAN CORPUSCULAR HGB CONC 32.7 g/dL (33.0-36.5); MEAN CORPUSCULAR VOLUME 89.8 FL (78-98); MEAN PLATELET VOLUME 8.5 FL (7.4-10.4); PLATELET COUNT 305 X10'3 (140-440); RED BLOOD COUNT 2.82 X10'6 (4.70-6.10); RED CELL DISTRIBUTION WIDTH 19.1 % (11.5-14.5); WHITE BLOOD COUNT 11.6 X10'3 (4.5-11.0)
[2021-08-27] MEDS: insulin glargine (Lantus) pen - multi-dose SQ SCH (21:57)
--- NOTE | 2021-08-27 22:15 | NUR ---
Placed patient in supine position. Ice packs to face. Increased FiO2 to maintain sats greater than 88%.
[2021-08-27] MEDS: NORepinephrine inj. 32 MG in normal saline 250ml IV soln 218 ML IV SCH (22:54)
[2021-08-28] VITALS (24 sets, daily range): BP systolic 92–123; BP diastolic 46–80
[2021-08-28] MEDS: cefTAZidime inj 2 GM in normal saline 100ml IV soln 100 ML IV SCH ×4 (00:09→23:42)
[2021-08-28] MEDS: midazolam 100mg in NS 100ml 100 ML IV PRN ×5 (00:09→21:34)
[2021-08-28] MEDS: propofol 1000mg/100ml bottle 100 ML IV SCH ×8 (00:10→22:24)
[2021-08-28] MEDS: fentaNYL/PF inj 2,500 MCG in normal saline 250ml IV soln 200 ML IV PRN ×3 (00:10→15:41)
[2021-08-28] MEDS: pantoprazole 40MG/NS 100ML BAG 100 ML IV SCH ×6 (01:00→23:43)
--- NOTE | 2021-08-28 01:15 | NUR ---
Tolerating supine position. Sats 91% on 70% FiO2.
[2021-08-28] MEDS: mineral oil/petrolatum ophthal oint EACHEYE SCH ×4 (02:10→20:20)
[2021-08-28] MEDS: insulin regular, human U-100 3ml vial - multi-dose SQ SCH ×4 (02:22→20:24)
[2021-08-28] MEDS: CISatracurium besylate inj. 100 MG in normal saline 100ml IV soln 90 ML IV PRN (02:23)
[2021-08-28 02:43] LABS: BASOPHILS % (AUTO) 0.4 % (0-1); EOSINOPHILS # (AUTO) 0.2 X10'3 (0-0.9); EOSINOPHILS % (AUTO) 1.9 % (0-6); HEMOGLOBIN 7.2 g/dl (14.0-17.9); LYMPHOCYTES # (AUTO) 1.5 X10'3 (1.1-4.8); LYMPHOCYTES % (AUTO) 14.1 % (21-51); MEAN CORPUSCULAR HGB CONC 33.3 g/dL (33.0-36.5); MEAN CORPUSCULAR VOLUME 90.3 FL (78-98); MEAN PLATELET VOLUME 8.7 FL (7.4-10.4); MONOCYTES # (AUTO) 0.6 X10'3 (0-0.9); MONOCYTES % (AUTO) 5.9 % (2-12); NEUTROPHILS # (AUTO) 8.2 X10'3 (1.8-7.7); NEUTROPHILS % (AUTO) 77.7 % (42-75); PLATELET COUNT 298 X10'3 (140-440); RED BLOOD COUNT 2.41 X10'6 (4.70-6.10); RED CELL DISTRIBUTION WIDTH 19.6 % (11.5-14.5); WHITE BLOOD COUNT 10.6 X10'3 (4.5-11.0)
[2021-08-28 02:52] LABS: HEMATOCRIT 21.8 % (42.0-52.0)
[2021-08-28 02:55] LABS: D-DIMER 3.58 MG/L FEU (0-0.50)
[2021-08-28 03:00] LABS: ALANINE AMINOTRANSFERASE 15 U/L (12-78); ALBUMIN 1.8 G/DL (3.4-5.0); ALBUMIN/GLOBULIN RATIO 0.5 (1.1-1.5); ALKALINE PHOSPHATASE 144 IU/L (46-116); ANION GAP 5 (8-16); ASPARTATE AMINO TRANSFERASE 14 U/L (10-37); BILIRUBIN,TOTAL 0.3 MG/DL (0.1-1.0); BLOOD UREA NITROGEN 10 MG/DL (7-18); BUN/CREATININE RATIO 71.4 (5.4-32.0); CALCIUM 7.9 MG/DL (8.5-10.1); CHLORIDE 108 MMOL/L (99-107); CREATININE 0.14 MG/DL (0.60-1.10); GLUCOSE 99 MG/DL (70-104); POTASSIUM 3.7 MMOL/L (3.5-5.1); SODIUM 145 MMOL/L (135-145); TOTAL CARBON DIOXIDE 32.4 MMOL/L (24-32); TOTAL PROTEIN 5.2 G/DL (6.4-8.2); eGFR > 90 ML/MIN
[2021-08-28 03:01] LABS: C-REACTIVE PROTEIN 12.38 MG/DL (0.0-0.5); LACTATE DEHYDROGENASE 215 U/L (85-227); MAGNESIUM 1.9 MG/DL (1.5-2.4); PHOSPHORUS 4.2 MG/DL (2.3-4.5); TRIGLYCERIDES 128 MG/DL (20-135)
--- NOTE | 2021-08-28 03:35 | NUR ---
Patient returned to rotating in the prone position after morning chest xray obtained.
[2021-08-28 04:14] LABS: NUCLEATED RED BLOOD CELLS 2 /100WBC (0-0); TOTAL CELLS COUNTED 100
[2021-08-28 04:15] LABS: ANISOCYTOSIS 2+; PLATELET ESTIMATE NORMAL; POLYCHROMASIA 1+; SCHISTOCYTES FEW
[2021-08-28 04:16] LABS: HYPOCHROMASIA 1+
[2021-08-28 04:17] LABS: ELLIPTOCYTES FEW
[2021-08-28 04:34] LABS: ABG PCO2 (T) 50.9 mmHg (35.0-48.0); ABG PO2 (T) 69.6 mmHg (75.0-100.0); ALLEN'S TEST POSITIVE; PATIENT TEMPERATURE 37.4; PEEP 12 cm H2O; RESPIRATORY RATE 30 b/min; TIDAL VOLUME 400 mL
[2021-08-28 04:35] LABS: ABG BASE EXCESS 5.4 mmol/L (-2.0-2.0); ABG HCO3 30.8 mmol/L (22.0-26.0); ABG OXYGEN SATURATION 92.7 % (94-97); FMetHb 0.1 % (0.0-1.5); FO2Hb 91.7 % (94-97); TOTAL HEMOGLOBIN 8.8 G/dl (14.0-18.0)
--- NOTE | 2021-08-28 06:22 | NUR ---
Problems reprioritized. Patient report given, questions answered & plan of care reviewed with Rayo BOWEN.
[2021-08-28] MEDS: quetiapine 100mg tablet OGT SCH (07:20)
[2021-08-28] MEDS: docusate sodium 100mg/10ml UD cup OGT SCH ×2 (07:21→20:20)
[2021-08-28] MEDS: lactobacillus rhamnosus 10,000 MMU CELLS/CAPSULE OGT SCH ×2 (07:21→20:20)
[2021-08-28] MEDS: levoFLOXACIN-Levaquin 500mg/D5 100 ML IV SCH (07:21)
[2021-08-28] MEDS: enoxaparin 80mg/0.8ml syringe SUBCUT SCH ×2 (07:22→20:19)
[2021-08-28] MEDS: prednisone 10mg tablet PO SCH (07:32)
[2021-08-28] MEDS: furosemide 40mg/4ml inj IV SCH ×2 (11:20→20:19)
--- NOTE | 2021-08-28 13:11 | NUR ---
F/u: Patient's water flushes to increase from 200 mL Q12H to 200 mL Q4H per ANDRÉS SMITH updated EMR. Addendum: 08/28/21 at [address] Amended: Links added.
--- NOTE | 2021-08-28 18:18 | NUR ---
Problems reprioritized. Patient report given, questions answered & plan of care reviewed with Renetta BOWEN.
--- NOTE | 2021-08-28 18:30 | NUR ---
Patient in room [facility] 2008. I have received report from Rayo BOWEN and had the opportunity to ask questions and assume patient care. Addendum: 08/28/21 at 1835 by Renetta Velazquez RN Amended: Links added.
--- NOTE | 2021-08-28 19:35 | NUR ---
Placed patient in supine position. Tolerating at this time. Will continue to monitor closely.
[2021-08-28] MEDS: insulin glargine (Lantus) pen - multi-dose SQ SCH (20:27)
[2021-08-29] VITALS (24 sets, daily range): BP systolic 86–143; BP diastolic 47–100
[2021-08-29] MEDS: fentaNYL/PF inj 2,500 MCG in normal saline 250ml IV soln 200 ML IV PRN ×4 (00:01→22:59)
[2021-08-29] MEDS: mineral oil/petrolatum ophthal oint EACHEYE SCH ×4 (02:31→20:42)
[2021-08-29] MEDS: propofol 1000mg/100ml bottle 100 ML IV SCH ×8 (02:31→23:58)
[2021-08-29] MEDS: insulin regular, human U-100 3ml vial - multi-dose SQ SCH ×3 (02:32→13:24)
[2021-08-29 03:08] LABS: ABG BASE EXCESS 13.4 mmol/L (-2.0-2.0); ABG HCO3 38.2 mmol/L (22.0-26.0); ABG PCO2 (T) 53.5 mmHg (35.0-48.0); ABG PO2 (T) 54.6 mmHg (75.0-100.0); ALLEN'S TEST POSITIVE; FCOHb 0.5 % (0.0-3.9); FMetHb 0.4 % (0.0-1.5); FO2Hb 85.2 % (94-97); PEEP 12 cm H2O; RESPIRATORY RATE 30 b/min; TIDAL VOLUME 400 mL; TOTAL HEMOGLOBIN 8.4 G/dl (14.0-18.0)
[2021-08-29 03:28] LABS: BASOPHILS % (AUTO) 0.4 % (0-1); EOSINOPHILS # (AUTO) 0.2 X10'3 (0-0.9); EOSINOPHILS % (AUTO) 2.4 % (0-6); HEMATOCRIT 22.9 % (42.0-52.0); HEMOGLOBIN 7.4 g/dl (14.0-17.9); LYMPHOCYTES # (AUTO) 1.5 X10'3 (1.1-4.8); LYMPHOCYTES % (AUTO) 16.1 % (21-51); MEAN CORPUSCULAR HEMOGLOBIN 29.5 PG (27.0-31.0); MEAN CORPUSCULAR HGB CONC 32.6 g/dL (33.0-36.5); MEAN CORPUSCULAR VOLUME 90.5 FL (78-98); MONOCYTES # (AUTO) 0.7 X10'3 (0-0.9); NEUTROPHILS # (AUTO) 6.6 X10'3 (1.8-7.7); NEUTROPHILS % (AUTO) 73.1 % (42-75); PLATELET COUNT 303 X10'3 (140-440); RED BLOOD COUNT 2.53 X10'6 (4.70-6.10); RED CELL DISTRIBUTION WIDTH 19.3 % (11.5-14.5)
[2021-08-29 03:30] LABS: D-DIMER 2.76 MG/L FEU (0-0.50)
[2021-08-29 03:35] LABS: ALANINE AMINOTRANSFERASE 17 U/L (12-78); ALBUMIN 1.8 G/DL (3.4-5.0); ALBUMIN/GLOBULIN RATIO 0.5 (1.1-1.5); ALKALINE PHOSPHATASE 149 IU/L (46-116); ANION GAP 6 (8-16); ASPARTATE AMINO TRANSFERASE 9 U/L (10-37); BILIRUBIN,TOTAL 0.3 MG/DL (0.1-1.0); BLOOD UREA NITROGEN 8 MG/DL (7-18); BUN/CREATININE RATIO 33.3 (5.4-32.0); C-REACTIVE PROTEIN 13.54 MG/DL (0.0-0.5); CALCIUM 8.1 MG/DL (8.5-10.1); CHLORIDE 103 MMOL/L (99-107); CREATININE 0.24 MG/DL (0.60-1.10); GLUCOSE 91 MG/DL (70-104); LACTATE DEHYDROGENASE 229 U/L (85-227); MAGNESIUM 1.8 MG/DL (1.5-2.4); PHOSPHORUS 4.7 MG/DL (2.3-4.5); POTASSIUM 3.5 MMOL/L (3.5-5.1); SODIUM 144 MMOL/L (135-145); TOTAL CARBON DIOXIDE 34.9 MMOL/L (24-32); TOTAL PROTEIN 5.3 G/DL (6.4-8.2); eGFR > 90 ML/MIN
[2021-08-29] MEDS: acetaminophen 325mg/10.15ml oral unit dose solution OGT PRN (04:06)
--- NOTE | 2021-08-29 04:53 | NUR ---
patient tolerating rotating in the supine position. Patient's status discussed with Dr. Tapia. Orders placed by
[2021-08-29] MEDS: midazolam 100mg in NS 100ml 100 ML IV PRN ×4 (05:16→19:21)
[2021-08-29] MEDS: pantoprazole 40MG/NS 100ML BAG 100 ML IV SCH ×3 (05:17→20:42)
--- NOTE | 2021-08-29 06:24 | NUR ---
Problems reprioritized. Patient report given, questions answered & plan of care reviewed with Rayo BOWEN.
[2021-08-29] MEDS: cefTAZidime inj 2 GM in normal saline 100ml IV soln 100 ML IV SCH ×3 (07:27→23:45)
[2021-08-29] MEDS: docusate sodium 100mg/10ml UD cup OGT SCH ×2 (07:29→20:43)
[2021-08-29] MEDS: lactobacillus rhamnosus 10,000 MMU CELLS/CAPSULE OGT SCH ×2 (07:29→20:43)
[2021-08-29] MEDS: furosemide 40mg/4ml inj IV SCH ×2 (07:29→20:42)
[2021-08-29] MEDS: prednisone 10mg tablet PO SCH (07:29)
[2021-08-29] MEDS: enoxaparin 80mg/0.8ml syringe SUBCUT SCH ×2 (07:30→20:43)
[2021-08-29] MEDS: levoFLOXACIN-Levaquin 500mg/D5 100 ML IV SCH (07:30)
[2021-08-29] MEDS: NORepinephrine 8mg/ 250ml NS 250 ML IV SCH (12:28)
[2021-08-29 15:31] LABS: OCCULT BLOOD STOOL NEGATIVE (Neg)
--- NOTE | 2021-08-29 18:07 | NUR ---
Problems reprioritized. Patient report given, questions answered & plan of care reviewed with Homero BOWEN.
[2021-08-29] MEDS: insulin glargine (Lantus) pen - multi-dose SQ SCH (20:49)
[2021-08-30] VITALS (24 sets, daily range): BP systolic 86–147; BP diastolic 47–104
[2021-08-30] MEDS: midazolam 100mg in NS 100ml 100 ML IV PRN ×5 (00:19→19:42)
[2021-08-30] MEDS: NORepinephrine 8mg/ 250ml NS 250 ML IV SCH ×2 (01:05→13:55)
[2021-08-30 01:27] LABS: BASOPHILS # (AUTO) 0.1 X10'3 (0-0.2); BASOPHILS % (AUTO) 0.6 % (0-1); EOSINOPHILS # (AUTO) 0.2 X10'3 (0-0.9); EOSINOPHILS % (AUTO) 1.9 % (0-6); HEMATOCRIT 24.6 % (42.0-52.0); HEMOGLOBIN 8.4 g/dl (14.0-17.9); LYMPHOCYTES # (AUTO) 1.2 X10'3 (1.1-4.8); LYMPHOCYTES % (AUTO) 14.8 % (21-51); MEAN CORPUSCULAR HGB CONC 34.1 g/dL (33.0-36.5); MEAN PLATELET VOLUME 8.4 FL (7.4-10.4); MONOCYTES # (AUTO) 0.7 X10'3 (0-0.9); MONOCYTES % (AUTO) 8.3 % (2-12); NEUTROPHILS # (AUTO) 6.1 X10'3 (1.8-7.7); NEUTROPHILS % (AUTO) 74.4 % (42-75); PLATELET COUNT 331 X10'3 (140-440); RED CELL DISTRIBUTION WIDTH 19.4 % (11.5-14.5); WHITE BLOOD COUNT 8.2 X10'3 (4.5-11.0)
[2021-08-30 01:37] LABS: D-DIMER 3.13 MG/L FEU (0-0.50)
[2021-08-30 01:43] LABS: ALANINE AMINOTRANSFERASE 17 U/L (12-78); ALBUMIN 1.9 G/DL (3.4-5.0); ALBUMIN/GLOBULIN RATIO 0.5 (1.1-1.5); ALKALINE PHOSPHATASE 157 IU/L (46-116); ANION GAP 4 (8-16); ASPARTATE AMINO TRANSFERASE 10 U/L (10-37); BILIRUBIN,TOTAL 0.3 MG/DL (0.1-1.0); BLOOD UREA NITROGEN 6 MG/DL (7-18); BUN/CREATININE RATIO 31.6 (5.4-32.0); C-REACTIVE PROTEIN 12.35 MG/DL (0.0-0.5); CALCIUM 8.4 MG/DL (8.5-10.1); CHLORIDE 104 MMOL/L (99-107); CREATININE 0.19 MG/DL (0.60-1.10); GLUCOSE 90 MG/DL (70-104); LACTATE DEHYDROGENASE 273 U/L (85-227); MAGNESIUM 1.9 MG/DL (1.5-2.4); PHOSPHORUS 4.6 MG/DL (2.3-4.5); SODIUM 146 MMOL/L (135-145); TOTAL CARBON DIOXIDE 38.5 MMOL/L (24-32); TOTAL PROTEIN 5.7 G/DL (6.4-8.2); eGFR > 90 ML/MIN
[2021-08-30] MEDS: mineral oil/petrolatum ophthal oint EACHEYE SCH ×4 (02:11→19:55)
[2021-08-30] MEDS: potassium Cl 20mEq/100mL bag 100 ML IV PRN ×4 (02:19→06:24)
[2021-08-30] MEDS: propofol 1000mg/100ml bottle 100 ML IV SCH ×7 (03:08→22:55)
[2021-08-30 04:30] LABS: TOTAL CELLS COUNTED 100
[2021-08-30 04:31] LABS: ANISOCYTOSIS 2+; PLATELET ESTIMATE NORMAL; POLYCHROMASIA 1+
[2021-08-30 04:32] LABS: STOMATOCYTES FEW
[2021-08-30 04:33] LABS: TEAR DROP CELLS 1+
[2021-08-30] MEDS: acetaminophen 325mg/10.15ml oral unit dose solution OGT PRN (05:07)
[2021-08-30] MEDS: fentaNYL/PF inj 2,500 MCG in normal saline 250ml IV soln 200 ML IV PRN ×3 (06:23→22:24)
[2021-08-30 07:20] LABS: ABG HCO3 36.8 mmol/L (22.0-26.0); ABG OXYGEN SATURATION 91.8 % (94-97); ABG PCO2 (T) 52.8 mmHg (35.0-48.0); ABG PO2 (T) 67.3 mmHg (75.0-100.0); ALLEN'S TEST POSITIVE; FCOHb 0.7 % (0.0-3.9); FMetHb 0.3 % (0.0-1.5); FO2Hb 90.9 % (94-97); PATIENT TEMPERATURE 37.7; PEEP 10 cm H2O; RESPIRATORY RATE 30 b/min; TIDAL VOLUME 400 mL
[2021-08-30] MEDS: furosemide 40mg/4ml inj IV SCH ×2 (07:20→19:51)
[2021-08-30] MEDS: lactulose 20gm/30ml cup OGT PRN (07:20)
[2021-08-30] MEDS: docusate sodium 100mg/10ml UD cup OGT SCH ×2 (07:20→19:51)
[2021-08-30] MEDS: levoFLOXACIN-Levaquin 500mg/D5 100 ML IV SCH (07:21)
[2021-08-30] MEDS: prednisone 10mg tablet PO SCH (07:21)
[2021-08-30] MEDS: pantoprazole 40MG/NS 100ML BAG 100 ML IV SCH ×2 (07:22→19:51)
[2021-08-30] MEDS: lactobacillus rhamnosus 10,000 MMU CELLS/CAPSULE OGT SCH ×2 (07:22→19:51)
[2021-08-30] MEDS: cefTAZidime inj 2 GM in normal saline 100ml IV soln 100 ML IV SCH ×3 (07:22→23:31)
[2021-08-30] MEDS: enoxaparin 80mg/0.8ml syringe SUBCUT SCH ×2 (07:23→19:51)
[2021-08-30] MEDS: insulin regular, human U-100 3ml vial - multi-dose SQ SCH ×3 (08:04→19:54)
--- NOTE | 2021-08-30 11:04 | NUR ---
Reassessment: Pt remains intubated and tolerating TF at goal rate with GRV WNL. Propofol rate remains the same, no changes to TF recommendations at this time. LBM 08/29 though no documentation stool output in EMR. Pt with 300 mL stool output 08/28 per I&O. Pt receiving routine and PRN bowel care. Will continue to follow. Recommendations: 1) Given Propofol rate of 26.49 mL/hr (699 kcal/day), continuous Vital AF with goal rate of 65 mL/hr to provide 1560 mL total volume/day, 1872 kcal, 117 g protein, and 1265 mL water 2) Monitor for adjustments in Propofol rate and adjust TF as appropriate 3) IF Propofol is discontinued, resume continuous Vital AF with goal rate of 85 mL/hr to provide 2040 mL total volume/day, 2448 kcal, 153 g protein, and 1654 mL water 4) Additional 200 mL water flush Q4H per MD; monitor serum Na 5) Prealbumin q Thursday/; Daily scaled weights 6) Routine bowel care 7) PO diet advancement to CHO controlled as medically indicated following extubation; Will need BSS with ST prior to PO diet advancement 8) DM education once stable following extubation and official DM dx by physician; A1c 10.1% with no PMH DM in EMR Addendum: 08/30/21 at [address] Amended: Links added.
[2021-08-30] MEDS: [UNRECOGNIZED DRUG - OTHER] IV SCH ×2 (12:10→19:52)
[2021-08-30] MEDS: DEXTROSE IV SCH ×2 (12:10→19:52)
[2021-08-30] MEDS: TRIMETHOPRIM IV SCH ×2 (12:10→19:52)
[2021-08-30] MEDS: WATER IV SCH ×2 (12:10→19:52)
--- NOTE | 2021-08-30 18:20 | NUR ---
Problems reprioritized. Patient report given, questions answered & plan of care reviewed with Xenia BOWEN.
[2021-08-30] MEDS: insulin glargine (Lantus) pen - multi-dose SQ SCH (19:55)
[2021-08-31] VITALS (24 sets, daily range): BP systolic 82–143; BP diastolic 40–98
[2021-08-31] MEDS: midazolam 100mg in NS 100ml 100 ML IV PRN ×5 (00:49→20:34)
[2021-08-31] MEDS: mineral oil/petrolatum ophthal oint EACHEYE SCH ×4 (02:22→19:57)
[2021-08-31] MEDS: insulin regular, human U-100 3ml vial - multi-dose SQ SCH ×4 (02:24→20:04)
[2021-08-31] MEDS: propofol 1000mg/100ml bottle 100 ML IV SCH ×7 (02:38→23:54)
[2021-08-31] MEDS: NORepinephrine 8mg/ 250ml NS 250 ML IV SCH ×2 (02:39→15:35)
[2021-08-31 02:44] LABS: BASOPHILS # (AUTO) 0.1 X10'3 (0-0.2); BASOPHILS % (AUTO) 1.1 % (0-1); EOSINOPHILS # (AUTO) 0.2 X10'3 (0-0.9); EOSINOPHILS % (AUTO) 2.9 % (0-6); HEMATOCRIT 24.2 % (42.0-52.0); HEMOGLOBIN 8.2 g/dl (14.0-17.9); LYMPHOCYTES # (AUTO) 1.2 X10'3 (1.1-4.8); LYMPHOCYTES % (AUTO) 18.1 % (21-51); MEAN CORPUSCULAR HEMOGLOBIN 30.5 PG (27.0-31.0); MEAN CORPUSCULAR VOLUME 89.6 FL (78-98); MEAN PLATELET VOLUME 8.9 FL (7.4-10.4); MONOCYTES # (AUTO) 0.6 X10'3 (0-0.9); MONOCYTES % (AUTO) 8.6 % (2-12); NEUTROPHILS # (AUTO) 4.5 X10'3 (1.8-7.7); NEUTROPHILS % (AUTO) 69.3 % (42-75); PLATELET COUNT 281 X10'3 (140-440); RED CELL DISTRIBUTION WIDTH 19.8 % (11.5-14.5); WHITE BLOOD COUNT 6.4 X10'3 (4.5-11.0)
[2021-08-31 03:43] LABS: ANISOCYTOSIS 2+; PLATELET ESTIMATE NORMAL; TOTAL CELLS COUNTED 100
[2021-08-31 03:44] LABS: TEAR DROP CELLS 1+
[2021-08-31 03:51] LABS: D-DIMER 4.35 MG/L FEU (0-0.50)
[2021-08-31 03:54] LABS: ALANINE AMINOTRANSFERASE 17 U/L (12-78); ALBUMIN 2.1 G/DL (3.4-5.0); ALBUMIN/GLOBULIN RATIO 0.6 (1.1-1.5); ALKALINE PHOSPHATASE 152 IU/L (46-116); ANION GAP 2 (8-16); ASPARTATE AMINO TRANSFERASE 9 U/L (10-37); BILIRUBIN,TOTAL 0.3 MG/DL (0.1-1.0); BLOOD UREA NITROGEN 6 MG/DL (7-18); C-REACTIVE PROTEIN 13.09 MG/DL (0.0-0.5); CALCIUM 8.6 MG/DL (8.5-10.1); CHLORIDE 104 MMOL/L (99-107); CREATININE 0.25 MG/DL (0.60-1.10); GLUCOSE 148 MG/DL (70-104); LACTATE DEHYDROGENASE 226 U/L (85-227); PHOSPHORUS 4.1 MG/DL (2.3-4.5); POTASSIUM 3.5 MMOL/L (3.5-5.1); SODIUM 142 MMOL/L (135-145); TOTAL CARBON DIOXIDE 35.6 MMOL/L (24-32); TOTAL PROTEIN 5.9 G/DL (6.4-8.2); eGFR > 90 ML/MIN
[2021-08-31 04:22] LABS: ABG BASE EXCESS 9.4 mmol/L (-2.0-2.0); ABG HCO3 34.6 mmol/L (22.0-26.0); ABG OXYGEN SATURATION 94.8 % (94-97); ABG PCO2 (T) 51.6 mmHg (35.0-48.0); ABG PO2 (T) 78.6 mmHg (75.0-100.0); ALLEN'S TEST Modified; FCOHb 1.3 % (0.0-3.9); FMetHb 0.3 % (0.0-1.5); FO2Hb 93.3 % (94-97); PATIENT TEMPERATURE 37.2; PEEP 10 cm H2O; RESPIRATORY RATE 30 b/min; TIDAL VOLUME 400 mL; TOTAL HEMOGLOBIN 9.1 G/dl (14.0-18.0)
[2021-08-31] MEDS: fentaNYL/PF inj 2,500 MCG in normal saline 250ml IV soln 200 ML IV PRN ×2 (04:36→20:02)
[2021-08-31] MEDS: DEXTROSE IV SCH ×3 (04:37→19:57)
[2021-08-31] MEDS: WATER IV SCH ×3 (04:37→19:57)
[2021-08-31] MEDS: [UNRECOGNIZED DRUG - OTHER] IV SCH ×3 (04:37→19:57)
[2021-08-31] MEDS: TRIMETHOPRIM IV SCH ×3 (04:37→19:57)
[2021-08-31] MEDS: pantoprazole 40MG/NS 100ML BAG 100 ML IV SCH ×2 (07:37→20:01)
[2021-08-31] MEDS: docusate sodium 100mg/10ml UD cup OGT SCH ×2 (07:37→20:01)
[2021-08-31] MEDS: furosemide 40mg/4ml inj IV SCH ×2 (07:37→20:01)
[2021-08-31] MEDS: lactobacillus rhamnosus 10,000 MMU CELLS/CAPSULE OGT SCH ×2 (07:37→20:01)
[2021-08-31] MEDS: cefTAZidime inj 2 GM in normal saline 100ml IV soln 100 ML IV SCH ×3 (07:37→23:52)
[2021-08-31] MEDS: prednisone 10mg tablet PO SCH (07:37)
[2021-08-31] MEDS: enoxaparin 80mg/0.8ml syringe SUBCUT SCH ×2 (07:38→20:01)
--- NOTE | 2021-08-31 14:30 | NUR ---
PICC line pulled 3cm from 4cm to 7cm per radiologist request and Dr. Guzmán's order. Improved ectopy on bedside monitor.
--- NOTE | 2021-08-31 18:09 | NUR ---
Problems reprioritized. Patient report given, questions answered & plan of care reviewed with Xenia BOWEN.
[2021-08-31] MEDS: polyethylene glycol 3350 17gm powd pack OGT PRN (20:01)
[2021-08-31] MEDS: insulin glargine (Lantus) pen - multi-dose SQ SCH (20:08)
[2021-09-01] VITALS (24 sets, daily range): BP systolic 88–116; BP diastolic 42–72
[2021-09-01] MEDS: mineral oil/petrolatum ophthal oint EACHEYE SCH ×4 (02:16→19:49)
[2021-09-01] MEDS: midazolam 100mg in NS 100ml 100 ML IV PRN ×5 (02:34→22:37)
[2021-09-01] MEDS: insulin regular, human U-100 3ml vial - multi-dose SQ SCH ×3 (02:39→13:32)
[2021-09-01 02:58] LABS: BASOPHILS # (AUTO) 0.1 X10'3 (0-0.2); BASOPHILS % (AUTO) 0.8 % (0-1); EOSINOPHILS # (AUTO) 0.1 X10'3 (0-0.9); EOSINOPHILS % (AUTO) 1.6 % (0-6); HEMATOCRIT 25.8 % (42.0-52.0); HEMOGLOBIN 8.4 g/dl (14.0-17.9); LYMPHOCYTES # (AUTO) 1.4 X10'3 (1.1-4.8); LYMPHOCYTES % (AUTO) 16.5 % (21-51); MEAN CORPUSCULAR HEMOGLOBIN 28.7 PG (27.0-31.0); MEAN CORPUSCULAR HGB CONC 32.5 g/dL (33.0-36.5); MEAN CORPUSCULAR VOLUME 88.5 FL (78-98); MEAN PLATELET VOLUME 8.2 FL (7.4-10.4); MONOCYTES # (AUTO) 0.7 X10'3 (0-0.9); MONOCYTES % (AUTO) 8.5 % (2-12); NEUTROPHILS # (AUTO) 6.2 X10'3 (1.8-7.7); NEUTROPHILS % (AUTO) 72.6 % (42-75); PLATELET COUNT 339 X10'3 (140-440); RED BLOOD COUNT 2.92 X10'6 (4.70-6.10); RED CELL DISTRIBUTION WIDTH 19.2 % (11.5-14.5); WHITE BLOOD COUNT 8.6 X10'3 (4.5-11.0)
[2021-09-01 03:05] LABS: ALANINE AMINOTRANSFERASE 14 U/L (12-78); ALBUMIN 2.1 G/DL (3.4-5.0); ALBUMIN/GLOBULIN RATIO 0.5 (1.1-1.5); ALKALINE PHOSPHATASE 140 IU/L (46-116); ANION GAP 3 (8-16); ASPARTATE AMINO TRANSFERASE 7 U/L (10-37); BILIRUBIN,TOTAL 0.2 MG/DL (0.1-1.0); BLOOD UREA NITROGEN 6 MG/DL (7-18); BUN/CREATININE RATIO 23.1 (5.4-32.0); CALCIUM 8.4 MG/DL (8.5-10.1); CHLORIDE 104 MMOL/L (99-107); CREATININE 0.26 MG/DL (0.60-1.10); D-DIMER 3.59 MG/L FEU (0-0.50); GLUCOSE 108 MG/DL (70-104); LACTATE DEHYDROGENASE 209 U/L (85-227); MAGNESIUM 1.9 MG/DL (1.5-2.4); PHOSPHORUS 4.5 MG/DL (2.3-4.5); POTASSIUM 3.7 MMOL/L (3.5-5.1); SODIUM 141 MMOL/L (135-145); TOTAL CARBON DIOXIDE 34.4 MMOL/L (24-32); TOTAL PROTEIN 6.1 G/DL (6.4-8.2); eGFR > 90 ML/MIN
[2021-09-01] MEDS: propofol 1000mg/100ml bottle 100 ML IV SCH ×6 (04:03→19:54)
[2021-09-01] MEDS: fentaNYL/PF inj 2,500 MCG in normal saline 250ml IV soln 200 ML IV PRN ×3 (04:03→19:49)
[2021-09-01] MEDS: [UNRECOGNIZED DRUG - OTHER] IV SCH ×3 (04:04→19:49)
[2021-09-01] MEDS: TRIMETHOPRIM IV SCH ×3 (04:04→19:49)
[2021-09-01] MEDS: WATER IV SCH ×3 (04:04→19:49)
[2021-09-01] MEDS: DEXTROSE IV SCH ×3 (04:04→19:49)
[2021-09-01 04:26] LABS: ABG BASE EXCESS 7.4 mmol/L (-2.0-2.0); ABG HCO3 31.9 mmol/L (22.0-26.0); ABG OXYGEN SATURATION 92.5 % (94-97); ABG PCO2 (T) 47.1 mmHg (35.0-48.0); ABG PO2 (T) 67.1 mmHg (75.0-100.0); ALLEN'S TEST Modified; FCOHb 1.4 % (0.0-3.9); FMetHb 0.1 % (0.0-1.5); FO2Hb 91.1 % (94-97); PATIENT TEMPERATURE 37.8; PEEP 10 cm H2O; RESPIRATORY RATE 30 b/min; TIDAL VOLUME 400 mL; TOTAL HEMOGLOBIN 8.5 G/dl (14.0-18.0)
[2021-09-01] MEDS: NORepinephrine 8mg/ 250ml NS 250 ML IV SCH ×2 (05:28→17:15)
--- NOTE | 2021-09-01 06:10 | NUR ---
Problems reprioritized. Patient report given, questions answered & plan of care reviewed with ANDRÉS SKY.
--- NOTE | 2021-09-01 06:35 | NUR ---
Patient [facility] 2008. I have received report from CATY BOWEN and had the opportunity to ask questions and assume patient care. Addendum: 09/01/21 at 0635 by Debora Suarez RN Amended: Links added.
[2021-09-01] MEDS: pantoprazole 40MG/NS 100ML BAG 100 ML IV SCH ×2 (07:16→19:49)
[2021-09-01] MEDS: docusate sodium 100mg/10ml UD cup OGT SCH ×2 (07:18→19:50)
[2021-09-01] MEDS: lactobacillus rhamnosus 10,000 MMU CELLS/CAPSULE OGT SCH ×2 (07:18→19:50)
[2021-09-01] MEDS: furosemide 40mg/4ml inj IV SCH ×2 (07:18→19:50)
[2021-09-01] MEDS: enoxaparin 80mg/0.8ml syringe SUBCUT SCH ×2 (07:18→19:50)
[2021-09-01] MEDS: cefTAZidime inj 2 GM in normal saline 100ml IV soln 100 ML IV SCH ×2 (07:42→15:33)
[2021-09-01] MEDS: prednisone 10mg tablet PO SCH (07:56)
--- NOTE | 2021-09-01 10:27 | NUR ---
Wound pics obtained per policy.
--- NOTE | 2021-09-01 12:35 | NUR ---
Pt. has been supined since 949. Tolerating well. Fi02 is at 40%. The highest the Fi02 has been since supination is 55%.
[2021-09-01] MEDS: acetaminophen 325mg/10.15ml oral unit dose solution OGT PRN (13:10)
--- NOTE | 2021-09-01 13:44 | NUR ---
Brother Leon here to visit pt. Update given.
--- NOTE | 2021-09-01 14:09 | NUR ---
Brother left after stating his thanks for caring for his brother.
--- NOTE | 2021-09-01 15:56 | NUR ---
Dr. Singer in to see pt. Reviewed chart and assessed pt. PEEP decreased to 8. ABG ordered for 2 hours from now.
[2021-09-01 17:41] LABS: ABG BASE EXCESS 9.7 mmol/L (-2.0-2.0); ABG OXYGEN SATURATION 84.7 % (94-97); ABG PCO2 (T) 47.6 mmHg (35.0-48.0); ALLEN'S TEST POSITIVE; FCOHb 0.9 % (0.0-3.9); FMetHb 0.3 % (0.0-1.5); FO2Hb 83.7 % (94-97); PATIENT TEMPERATURE 37.9; PEEP 8 cm H2O; RESPIRATORY RATE 30 b/min; TIDAL VOLUME 400 mL; TOTAL HEMOGLOBIN 8.6 G/dl (14.0-18.0)
--- NOTE | 2021-09-01 17:58 | NUR ---
G drawn. Dr. Singer aware of results. No changes to vent ordered. ABG ordered for AM.
--- NOTE | 2021-09-01 18:00 | NUR ---
Problems reprioritized. Patient report given, questions answered & plan of care reviewed with NOC RN.
[2021-09-01] MEDS: insulin glargine (Lantus) pen - multi-dose SQ SCH (21:00)
[2021-09-02] VITALS (24 sets, daily range): BP systolic 78–147; BP diastolic 31–90
[2021-09-02] MEDS: acetaminophen 325mg/10.15ml oral unit dose solution OGT PRN ×5 (00:02→23:55)
[2021-09-02] MEDS: propofol 1000mg/100ml bottle 100 ML IV SCH ×7 (00:03→23:08)
[2021-09-02] MEDS: cefTAZidime inj 2 GM in normal saline 100ml IV soln 100 ML IV SCH ×4 (00:03→23:56)
[2021-09-02] MEDS: mineral oil/petrolatum ophthal oint EACHEYE SCH ×4 (01:42→20:03)
[2021-09-02] MEDS: furosemide 40mg/4ml inj IV SCH (02:54)
[2021-09-02 02:56] LABS: BASOPHILS # (AUTO) 0.1 X10'3 (0-0.2); BASOPHILS % (AUTO) 0.9 % (0-1); EOSINOPHILS # (AUTO) 0.2 X10'3 (0-0.9); EOSINOPHILS % (AUTO) 2.1 % (0-6); HEMATOCRIT 25.3 % (42.0-52.0); HEMOGLOBIN 8.1 g/dl (14.0-17.9); LYMPHOCYTES # (AUTO) 1.4 X10'3 (1.1-4.8); LYMPHOCYTES % (AUTO) 16.9 % (21-51); MEAN CORPUSCULAR HEMOGLOBIN 28.4 PG (27.0-31.0); MEAN CORPUSCULAR HGB CONC 32.2 g/dL (33.0-36.5); MEAN CORPUSCULAR VOLUME 88.3 FL (78-98); MEAN PLATELET VOLUME 8.4 FL (7.4-10.4); MONOCYTES # (AUTO) 0.7 X10'3 (0-0.9); MONOCYTES % (AUTO) 8.6 % (2-12); NEUTROPHILS # (AUTO) 5.8 X10'3 (1.8-7.7); NEUTROPHILS % (AUTO) 71.5 % (42-75); PLATELET COUNT 332 X10'3 (140-440); RED BLOOD COUNT 2.86 X10'6 (4.70-6.10); RED CELL DISTRIBUTION WIDTH 19.8 % (11.5-14.5); WHITE BLOOD COUNT 8.2 X10'3 (4.5-11.0)
--- NOTE | 2021-09-02 02:56 | NUR ---
DR PARSONS ORDERED AM DOSE OF LASIX TO BE HELD FOR FURTHER EVALUATION DUE TO INCREASED NEED OF LEVOPHED AND POSSIBLE SEPTIC STATUS
[2021-09-02 03:04] LABS: ABG BASE EXCESS 6.9 mmol/L (-2.0-2.0); ABG HCO3 32.1 mmol/L (22.0-26.0); ABG OXYGEN SATURATION 95.3 % (94-97); ABG PCO2 (T) 52.2 mmHg (35.0-48.0); ABG PO2 (T) 90.4 mmHg (75.0-100.0); ALLEN'S TEST POSITIVE; FCOHb 0.4 % (0.0-3.9); FMetHb 0.6 % (0.0-1.5); FO2Hb 94.3 % (94-97); PATIENT TEMPERATURE 38.3; PEEP 8 cm H2O; RESPIRATORY RATE 30 b/min; TIDAL VOLUME 400 mL; TOTAL HEMOGLOBIN 9.8 G/dl (14.0-18.0)
[2021-09-02] MEDS: midazolam 100mg in NS 100ml 100 ML IV PRN ×5 (03:16→21:57)
[2021-09-02] MEDS: fentaNYL/PF inj 2,500 MCG in normal saline 250ml IV soln 200 ML IV PRN ×4 (03:16→23:56)
[2021-09-02 03:22] LABS: ALANINE AMINOTRANSFERASE 15 U/L (12-78); ALBUMIN 2.1 G/DL (3.4-5.0); ALBUMIN/GLOBULIN RATIO 0.5 (1.1-1.5); ALKALINE PHOSPHATASE 133 IU/L (46-116); ANION GAP 5 (8-16); ASPARTATE AMINO TRANSFERASE 18 U/L (10-37); BILIRUBIN,TOTAL 0.2 MG/DL (0.1-1.0); BLOOD UREA NITROGEN 7 MG/DL (7-18); BUN/CREATININE RATIO 23.3 (5.4-32.0); C-REACTIVE PROTEIN 9.96 MG/DL (0.0-0.5); CALCIUM 8.3 MG/DL (8.5-10.1); CHLORIDE 102 MMOL/L (99-107); GLUCOSE 159 MG/DL (70-104); LACTATE DEHYDROGENASE 213 U/L (85-227); PHOSPHORUS 4.5 MG/DL (2.3-4.5); POTASSIUM 3.6 MMOL/L (3.5-5.1); SODIUM 139 MMOL/L (135-145); TOTAL CARBON DIOXIDE 32.1 MMOL/L (24-32); TOTAL PROTEIN 6.2 G/DL (6.4-8.2); eGFR > 90 ML/MIN
[2021-09-02 03:30] LABS: D-DIMER 2.36 MG/L FEU (0-0.50)
[2021-09-02] MEDS: [UNRECOGNIZED DRUG - OTHER] IV SCH ×3 (04:02→20:00)
[2021-09-02] MEDS: DEXTROSE IV SCH ×3 (04:02→20:00)
[2021-09-02] MEDS: WATER IV SCH ×3 (04:02→20:00)
[2021-09-02] MEDS: TRIMETHOPRIM IV SCH ×3 (04:02→20:00)
[2021-09-02] MEDS: NORepinephrine 8mg/ 250ml NS 250 ML IV SCH (05:27)
--- NOTE | 2021-09-02 06:26 | NUR ---
Problems reprioritized. Patient report given, questions answered & plan of care reviewed with ANDRÉS SKY.
--- NOTE | 2021-09-02 06:51 | NUR ---
Patient in room [facility] 2008. I have received report from Elana BOWEN and had the opportunity to ask questions and assume patient care. Addendum: 09/02/21 at 0653 by Debora Suarez RN Amended: Links added.
[2021-09-02] MEDS: insulin regular, human U-100 3ml vial - multi-dose SQ SCH ×3 (07:20→20:33)
[2021-09-02] MEDS: docusate sodium 100mg/10ml UD cup OGT SCH ×2 (07:21→20:00)
[2021-09-02] MEDS: lactobacillus rhamnosus 10,000 MMU CELLS/CAPSULE OGT SCH ×2 (07:21→20:01)
[2021-09-02] MEDS: enoxaparin 80mg/0.8ml syringe SUBCUT SCH ×2 (07:21→20:00)
[2021-09-02] MEDS: pantoprazole 40MG/NS 100ML BAG 100 ML IV SCH ×2 (07:21→20:01)
[2021-09-02] MEDS: lactulose 20gm/30ml cup OGT PRN (07:21)
[2021-09-02] MEDS: prednisone 10mg tablet PO SCH (07:24)
--- NOTE | 2021-09-02 09:44 | NUR ---
Spo2 decreased to 79% while supined. Proned pt.
--- NOTE | 2021-09-02 10:44 | NUR ---
Dr. Britton here to see pt.
[2021-09-02] MEDS ORDERED: atropine 0.1mg/ml 10ml syringe IV PRN (12:15)
--- NOTE | 2021-09-02 12:15 | NUR ---
Temp 38.8 HR, RR up. Unable to supine pt. again. Pt. was supined for almost 24 hours. Cooling measures in place. 2nd BC obtained via PICC since PIV BC unattainable. Will continue to monitor.
[2021-09-02 12:47] LABS: PREALBUMIN 19.4 MG/DL (19-36)
--- NOTE | 2021-09-02 13:23 | NUR ---
Dr. Singer in to see pt. Stated to supine pt. even if the Fi02 on vent has to increase.
--- NOTE | 2021-09-02 13:49 | NUR ---
Fi02 increased to 60% for Sp02 87% supined.
--- NOTE | 2021-09-02 14:08 | NUR ---
Brother Leon in to see pt. earlier in the shift. Inquired about obtaining pt's wallet that is stored in the safe downstairs. RN told Leon he would have to inquire about that down in the lobby.
--- NOTE | 2021-09-02 16:31 | NUR ---
Pt. remains supine but Fi02 is at 65% with SP02 88%.
--- NOTE | 2021-09-02 18:00 | NUR ---
Problems reprioritized. Patient report given, questions answered & plan of care reviewed with NOC ANDRÉS Huitron.
[2021-09-02] MEDS: polyethylene glycol 3350 17gm powd pack OGT PRN (20:02)
[2021-09-02] MEDS: insulin glargine (Lantus) pen - multi-dose SQ SCH (20:32)
[2021-09-02] MEDS ORDERED: tPA-cathflo 2 MG/2 ml IV flush IVF ONE (23:50)
[2021-09-03] VITALS (23 sets, daily range): BP systolic 96–137; BP diastolic 47–83
[2021-09-03] MEDS ORDERED: rocuronium 10mg/ml inj IV ONE (01:00)
[2021-09-03] MEDS: mineral oil/petrolatum ophthal oint EACHEYE SCH ×4 (02:29→19:41)
[2021-09-03] MEDS: insulin regular, human U-100 3ml vial - multi-dose SQ SCH ×4 (02:30→21:04)
[2021-09-03] MEDS: propofol 1000mg/100ml bottle 100 ML IV SCH ×8 (02:55→22:40)
[2021-09-03 02:58] LABS: BASOPHILS # (AUTO) 0.1 X10'3 (0-0.2); BASOPHILS % (AUTO) 0.4 % (0-1); EOSINOPHILS # (AUTO) 0.2 X10'3 (0-0.9); HEMATOCRIT 27.1 % (42.0-52.0); HEMOGLOBIN 8.5 g/dl (14.0-17.9); LYMPHOCYTES # (AUTO) 1.2 X10'3 (1.1-4.8); MEAN CORPUSCULAR HEMOGLOBIN 27.7 PG (27.0-31.0); MEAN CORPUSCULAR HGB CONC 31.5 g/dL (33.0-36.5); MEAN CORPUSCULAR VOLUME 88.1 FL (78-98); MONOCYTES # (AUTO) 1.1 X10'3 (0-0.9); MONOCYTES % (AUTO) 6.8 % (2-12); NEUTROPHILS # (AUTO) 14.2 X10'3 (1.8-7.7); NEUTROPHILS % (AUTO) 84.8 % (42-75); PLATELET COUNT 323 X10'3 (140-440); RED BLOOD COUNT 3.08 X10'6 (4.70-6.10); RED CELL DISTRIBUTION WIDTH 19.4 % (11.5-14.5); WHITE BLOOD COUNT 16.7 X10'3 (4.5-11.0)
[2021-09-03 03:04] LABS: D-DIMER 3.41 MG/L FEU (0-0.50)
[2021-09-03 03:16] LABS: ALANINE AMINOTRANSFERASE 14 U/L (12-78); ALBUMIN 2.1 G/DL (3.4-5.0); ALBUMIN/GLOBULIN RATIO 0.5 (1.1-1.5); ALKALINE PHOSPHATASE 155 IU/L (46-116); ANION GAP 8 (8-16); ASPARTATE AMINO TRANSFERASE 16 U/L (10-37); BILIRUBIN,TOTAL 0.3 MG/DL (0.1-1.0); BLOOD UREA NITROGEN 6 MG/DL (7-18); BUN/CREATININE RATIO 22.2 (5.4-32.0); C-REACTIVE PROTEIN 18.32 MG/DL (0.0-0.5); CALCIUM 8.3 MG/DL (8.5-10.1); CHLORIDE 101 MMOL/L (99-107); CREATININE 0.27 MG/DL (0.60-1.10); GLUCOSE 122 MG/DL (70-104); LACTATE DEHYDROGENASE 310 U/L (85-227); MAGNESIUM 1.9 MG/DL (1.5-2.4); PHOSPHORUS 5.2 MG/DL (2.3-4.5); POTASSIUM 4.4 MMOL/L (3.5-5.1); SODIUM 137 MMOL/L (135-145); TOTAL CARBON DIOXIDE 27.6 MMOL/L (24-32); TOTAL PROTEIN 6.3 G/DL (6.4-8.2); eGFR > 90 ML/MIN
[2021-09-03] MEDS: DEXTROSE IV SCH ×3 (04:25→19:48)
[2021-09-03] MEDS: TRIMETHOPRIM IV SCH ×3 (04:25→19:48)
[2021-09-03] MEDS: WATER IV SCH ×3 (04:25→19:48)
[2021-09-03] MEDS: midazolam 100mg in NS 100ml 100 ML IV PRN ×5 (04:25→23:05)
[2021-09-03] MEDS: [UNRECOGNIZED DRUG - OTHER] IV SCH ×3 (04:25→19:48)
[2021-09-03 04:39] LABS: ABG BASE EXCESS 1.1 mmol/L (-2.0-2.0); ABG HCO3 28.5 mmol/L (22.0-26.0); ABG OXYGEN SATURATION 90.1 % (94-97); ABG PCO2 (T) 62.1 mmHg (35.0-48.0); ABG PO2 (T) 66.4 mmHg (75.0-100.0); ALLEN'S TEST Modified; FCOHb 1.4 % (0.0-3.9); FMetHb 0.5 % (0.0-1.5); FO2Hb 88.4 % (94-97); PATIENT TEMPERATURE 37.3; PEEP 8 cm H2O; RESPIRATORY RATE 30 b/min; TIDAL VOLUME 400 mL; TOTAL HEMOGLOBIN 9.3 G/dl (14.0-18.0)
[2021-09-03 05:02] LABS: ANISOCYTOSIS 2+; PLATELET ESTIMATE NORMAL
[2021-09-03 05:03] LABS: ELLIPTOCYTES FEW; POLYCHROMASIA FEW; TEAR DROP CELLS FEW
--- NOTE | 2021-09-03 06:17 | NUR ---
Problems reprioritized. Patient report given, questions answered & plan of care reviewed with ANDRÉS Rush.
[2021-09-03] MEDS: docusate sodium 100mg/10ml UD cup OGT SCH ×2 (07:09→19:42)
[2021-09-03] MEDS: pantoprazole 40MG/NS 100ML BAG 100 ML IV SCH ×2 (07:14→19:40)
[2021-09-03] MEDS: NORepinephrine 8mg/ 250ml NS 250 ML IV SCH ×3 (07:15→20:35)
[2021-09-03] MEDS: lactobacillus rhamnosus 10,000 MMU CELLS/CAPSULE OGT SCH ×2 (07:39→19:40)
[2021-09-03] MEDS: enoxaparin 80mg/0.8ml syringe SUBCUT SCH (07:39)
[2021-09-03] MEDS: prednisone 10mg tablet PO SCH (07:41)
[2021-09-03] MEDS: cefTAZidime inj 2 GM in normal saline 100ml IV soln 100 ML IV SCH ×2 (07:41→15:17)
[2021-09-03] MEDS: fentaNYL/PF inj 2,500 MCG in normal saline 250ml IV soln 200 ML IV PRN ×3 (07:57→22:41)
[2021-09-03] MEDS: acetaminophen 325mg/10.15ml oral unit dose solution OGT PRN ×2 (09:08→19:41)
--- NOTE | 2021-09-03 11:43 | NUR ---
Reassessment: Pt remains intubated receiving TF at goal rate of 65 mL/hr given high kcal from Propofol which remains unchanged at this time. Noted pt with an elevated GRV of 550 mL this morning though overall pt appears to be tolerating TF with GRV WNL. LBM 09/02 documented with 300 mL stool output per I&O, routine bowel care held this morning. No changes to nutrition recommendations at this time. Will continue to follow. Recommendations: 1) Given Propofol rate of 26.49 mL/hr (699 kcal/day), continuous Vital AF with goal rate of 65 mL/hr to provide 1560 mL total volume/day, 1872 kcal, 117 g protein, and 1265 mL water 2) Monitor for adjustments in Propofol rate and adjust TF as appropriate 3) IF Propofol is discontinued, resume continuous Vital AF with goal rate of 85 mL/hr to provide 2040 mL total volume/day, 2448 kcal, 153 g protein, and 1654 mL water 4) Additional 200 mL water flush Q4H per MD; monitor serum Na 5) Prealbumin q Thursday/ 6) Daily scaled weights 7) Routine bowel care 8) PO diet advancement to CHO controlled as medically indicated following extubation; Will need BSS with ST prior to PO diet advancement 9) DM education once stable following extubation and official DM dx by physician; A1c 10.1% with no PMH DM in EMR Addendum: 09/03/21 at [address] Amended: Links added.
--- NOTE | 2021-09-03 18:15 | NUR ---
Problems reprioritized. Patient report given, questions answered & plan of care reviewed with Isaac BOWEN.
[2021-09-03] MEDS: enoxaparin 100mg/ml syringe SUBCUT SCH (19:40)
[2021-09-03] MEDS: insulin glargine (Lantus) pen - multi-dose SQ SCH (21:03)
--- NOTE | 2021-09-03 23:35 | NUR ---
35 yo male, admitted 07/23/2021, day 43 of hospitalization, full code, NDA, no isolation, no restraints. Initially pt was seen 07/10/2021 in ER for COVID symptoms times 8 days prior to the first ER visit. 07/23/2021 return to ER for increased SOB, BiPAP admission to ICU. 07/24/2021 pt was intubated. 07/30/2021 Rotoprone bed. 08/09/2021 Right pneumo- chest tube. 08/10/2021 left Pneumo- chest tube. 08/22/2021 GIB- Protonix gtt. 08/26/2021 Left pneumo increased. 08/27/2021 Hgb dropped- blood transfusion. 08/29/2021 PICC Line placed HELEN. Currently pt is febrile 38.9, cooled down with cooling towels and Tylenol. Temp down to 37.7. continuing to monitor. Pt is sedated with fentanyl 350 mcgs (35 ml's), Diprivan at 50 mcgs (26.49 ml's), Versed 20 mg (20 ml's). With multiple boluses of Fentanyl and versed and Propofol. HR 99-120 SR/ST BP supported with Levophed at .02mcgs (2.92 ml's Titratable). good pulses, +3 jennifer edema. All IVF infusing via HELEN TL PICC Line. Lovenox carbajal DVT prophylaxis. Pt has 2 chest tubes Rt and Lt. No drainage noted. Pt remains intubated since 07/24/2021. #8 ETT, 25 cm, VENT AC/ PRVC, rate 30, TV 452+/-, FIO2 100%, PEEP 15. Coarse, diminished, equal, symmetrical, labored. wants sats between 88-92%. Pt needs to be bagged to maintain saturation 86-88%. Dr Linda casey said to continue with same treatment. Hypoactive bowel sounds, soft nontender no distended. OG tube infusing Vital AF at 65 ml's hour. Glucose checks Q 6 hours. Protonix for GI prophylaxis. Gonzalez draining dennis urine at 75-200 ml's hour. Multiple skin issues, due to being proned. Pt remains safe, All safety precautions for Rotorest Bed in place per facility policies and procedures. Continue to monitor. Addendum: 09/04/21 at 0505 by Isaac Camejo RN PT chest tubes not draining any fluid. There is no bubbling in the chambers. Two days ago there was bubbling in the chambers. Saturations remain in the low 80's. Dr Mckeon was called three times and is aware of the patients current condition. Because the patient was breathing over the vent, somewhat, he gave a bolus of Prateek., which in turn did nothing. The morning rounding , Dr Bradley said to continue to monitor, given the condition of the patients lungs, there is not much more too do but to monitor. AM CRP 33.62 previous result from 09/02/2021 was 9.96 and D-Dimer 2.27 and previous was 3.41.
[2021-09-04] VITALS (23 sets, daily range): BP systolic 93–123; BP diastolic 44–76
[2021-09-04] MEDS ORDERED: rocuronium 10mg/ml inj IV ONE (01:50)
[2021-09-04] MEDS: propofol 1000mg/100ml bottle 100 ML IV SCH ×6 (02:15→22:43)
[2021-09-04] MEDS: mineral oil/petrolatum ophthal oint EACHEYE SCH ×4 (02:15→19:05)
[2021-09-04 03:10] LABS: BASOPHILS # (AUTO) 0.1 X10'3 (0-0.2); BASOPHILS % (AUTO) 0.6 % (0-1); EOSINOPHILS # (AUTO) 0.2 X10'3 (0-0.9); HEMATOCRIT 23.2 % (42.0-52.0); HEMOGLOBIN 7.5 g/dl (14.0-17.9); LYMPHOCYTES % (AUTO) 5.9 % (21-51); MEAN CORPUSCULAR HEMOGLOBIN 28.5 PG (27.0-31.0); MEAN CORPUSCULAR HGB CONC 32.5 g/dL (33.0-36.5); MEAN CORPUSCULAR VOLUME 87.7 FL (78-98); MEAN PLATELET VOLUME 8.6 FL (7.4-10.4); MONOCYTES # (AUTO) 1.2 X10'3 (0-0.9); NEUTROPHILS % (AUTO) 85.5 % (42-75); PLATELET COUNT 284 X10'3 (140-440); RED BLOOD COUNT 2.64 X10'6 (4.70-6.10); RED CELL DISTRIBUTION WIDTH 18.9 % (11.5-14.5); WHITE BLOOD COUNT 16.4 X10'3 (4.5-11.0)
[2021-09-04 03:17] LABS: D-DIMER 2.27 MG/L FEU (0-0.50)
[2021-09-04] MEDS: acetaminophen 325mg/10.15ml oral unit dose solution OGT PRN (03:19)
[2021-09-04 03:20] LABS: ALANINE AMINOTRANSFERASE 13 U/L (12-78); ALBUMIN 1.8 G/DL (3.4-5.0); ALBUMIN/GLOBULIN RATIO 0.4 (1.1-1.5); ALKALINE PHOSPHATASE 164 IU/L (46-116); ANION GAP 4 (8-16); ASPARTATE AMINO TRANSFERASE 14 U/L (10-37); BILIRUBIN,TOTAL 0.3 MG/DL (0.1-1.0); BLOOD UREA NITROGEN 6 MG/DL (7-18); CALCIUM 8.6 MG/DL (8.5-10.1); CHLORIDE 102 MMOL/L (99-107); GLUCOSE 98 MG/DL (70-104); LACTATE DEHYDROGENASE 327 U/L (85-227); MAGNESIUM 2.1 MG/DL (1.5-2.4); POTASSIUM 4.1 MMOL/L (3.5-5.1); SODIUM 139 MMOL/L (135-145); TOTAL CARBON DIOXIDE 33.3 MMOL/L (24-32); eGFR > 90 ML/MIN
[2021-09-04 03:32] LABS: C-REACTIVE PROTEIN 33.62 MG/DL (0.0-0.5)
[2021-09-04] MEDS: midazolam 100mg in NS 100ml 100 ML IV PRN ×5 (03:54→23:40)
[2021-09-04 03:58] LABS: ANISOCYTOSIS 2+; PLATELET ESTIMATE NORMAL
[2021-09-04 04:00] LABS: POLYCHROMASIA FEW; TEAR DROP CELLS FEW
[2021-09-04] MEDS: [UNRECOGNIZED DRUG - OTHER] IV SCH ×3 (04:00→19:53)
[2021-09-04] MEDS: DEXTROSE IV SCH ×3 (04:00→19:53)
[2021-09-04] MEDS: TRIMETHOPRIM IV SCH ×3 (04:00→19:53)
[2021-09-04] MEDS: WATER IV SCH ×3 (04:00→19:53)
[2021-09-04 04:02] LABS: STOMATOCYTES FEW
[2021-09-04 04:22] LABS: ABG BASE EXCESS 5.6 mmol/L (-2.0-2.0); ABG HCO3 34.6 mmol/L (22.0-26.0); ABG OXYGEN SATURATION 75.1 % (94-97); ABG PCO2 (T) 89.6 mmHg (35.0-48.0); ALLEN'S TEST Modified; FCOHb 1.5 % (0.0-3.9); FMetHb 0.3 % (0.0-1.5); FO2Hb 73.7 % (94-97); PATIENT TEMPERATURE 37.4; PEEP 16 cm H2O; RESPIRATORY RATE 30 b/min; TOTAL HEMOGLOBIN 7.8 G/dl (14.0-18.0)
[2021-09-04] MEDS: fentaNYL/PF inj 2,500 MCG in normal saline 250ml IV soln 200 ML IV PRN ×3 (05:33→19:53)
[2021-09-04] MEDS: pantoprazole 40MG/NS 100ML BAG 100 ML IV SCH ×2 (07:26→19:04)
[2021-09-04] MEDS: prednisone 10mg tablet PO SCH (07:27)
[2021-09-04] MEDS: lactobacillus rhamnosus 10,000 MMU CELLS/CAPSULE OGT SCH ×2 (07:27→19:04)
[2021-09-04] MEDS: docusate sodium 100mg/10ml UD cup OGT SCH ×2 (07:27→19:03)
[2021-09-04] MEDS: enoxaparin 100mg/ml syringe SUBCUT SCH ×2 (07:27→19:04)
[2021-09-04] MEDS: insulin regular, human U-100 3ml vial - multi-dose SQ SCH ×3 (08:02→20:24)
[2021-09-04] MEDS: NORepinephrine 8mg/ 250ml NS 250 ML IV SCH ×2 (09:25→21:16)
[2021-09-04] MEDS: NS IV SCH ×2 (09:55→19:04)
[2021-09-04] MEDS: MINOCYCLINE HCL IV SCH ×2 (09:55→19:04)
[2021-09-04] MEDS ORDERED: iohexol 350MG/ML 100ml bottle IV ONE (16:47)
[2021-09-04] MEDS: insulin glargine (Lantus) pen - multi-dose SQ SCH (20:23)
[2021-09-05] VITALS (32 sets, daily range): BP systolic 84–144; BP diastolic 49–90
[2021-09-05] MEDS: mineral oil/petrolatum ophthal oint EACHEYE SCH ×4 (01:02→19:35)
[2021-09-05] MEDS: acetaminophen 325mg/10.15ml oral unit dose solution OGT PRN (01:03)
--- NOTE | 2021-09-05 01:33 | NUR ---
35 yo male, admitted 07/23/2021, day 43 of hospitalization, full code, NDA, no isolation, no restraints. Initially pt was seen 07/10/2021 in ER for COVID symptoms times 8 days prior to the first ER visit. 07/23/2021 return to ER for increased SOB, BiPAP admission to ICU. 07/24/2021 pt was intubated. 07/30/2021 Rotoprone bed. 08/09/2021 Right pneumo- chest tube. 08/10/2021 left TENSION Pneumo- chest tube. 08/22/2021 GIB- Protonix gtt. 08/26/2021 Left pneumo increased. 08/27/2021 Hgb dropped- blood transfusion. 08/29/2021 PICC Line placed HELEN. Currently pt is febrile 38.7, cooled down with cooling towels and Tylenol. Temp down to 37.7. continuing to monitor. Pt is sedated with fentanyl 350 mcgs (35 ml's), Diprivan at 50 mcgs (26.49 ml's), Versed 20 mg (20 ml's). With multiple boluses of Fentanyl and versed and Propofol. HR 99-120 SR/ST BP supported with Levophed at .05 mcgs (3.89 ml's Titratable). good pulses, +3 jennifer edema. All IVF infusing via HELEN TL PICC Line. dressing CDI, good blood return. Lovenox for DVT prophylaxis. Pt has 2 chest tubes Rt and Lt. No drainage noted. Pt remains intubated since 07/24/2021. #8 ETT, 25 cm, VENT AC/ PC, rate 30, TV 452+/-, FIO2 100%, PEEP 16. Coarse, diminished, equal, symmetrical, labored. MD wants sats between 88-92%. Pt needs to be bagged to maintain saturation 86-88%. Hypoactive bowel sounds, soft nontender no distended. OG tube infusing Vital AF at 65 ml's hour. Rectal tube draining brown stool. Glucose checks Q 6 hours. Protonix for GI prophylaxis. Gonzalez draining dennis urine at 75-125 ml's hour. Multiple skin issues, due to being proned. Pt remains safe, All safety precautions for Rotorest Bed in place per facility policies and procedures. Continue to monitor. Addendum: 09/05/21 at 0240 by Isaac Camejo RN 0200 pt desated to 64% despite vigorous bagging and Prateek 50 mg IVP, per Dr Garza. Pt had to be proned saturation improved to 80%. Pt was febrile, Tylenol given, temp recovered to 37.3.
[2021-09-05] MEDS ORDERED: rocuronium 10mg/ml inj IV ONE (01:50)
[2021-09-05] MEDS: insulin regular, human U-100 3ml vial - multi-dose SQ SCH ×4 (02:36→20:19)
[2021-09-05] MEDS: propofol 1000mg/100ml bottle 100 ML IV SCH ×6 (02:42→22:53)
[2021-09-05] MEDS: fentaNYL/PF inj 2,500 MCG in normal saline 250ml IV soln 200 ML IV PRN (02:46)
[2021-09-05 03:19] LABS: BASOPHILS # (AUTO) 0.1 X10'3 (0-0.2); BASOPHILS % (AUTO) 0.5 % (0-1); EOSINOPHILS # (AUTO) 0.1 X10'3 (0-0.9); EOSINOPHILS % (AUTO) 0.8 % (0-6); HEMATOCRIT 25.2 % (42.0-52.0); HEMOGLOBIN 7.9 g/dl (14.0-17.9); LYMPHOCYTES # (AUTO) 2.4 X10'3 (1.1-4.8); LYMPHOCYTES % (AUTO) 12.3 % (21-51); MEAN CORPUSCULAR HEMOGLOBIN 27.6 PG (27.0-31.0); MEAN CORPUSCULAR HGB CONC 31.3 g/dL (33.0-36.5); MEAN PLATELET VOLUME 8.6 FL (7.4-10.4); MONOCYTES # (AUTO) 1.6 X10'3 (0-0.9); MONOCYTES % (AUTO) 8.5 % (2-12); NEUTROPHILS # (AUTO) 15.1 X10'3 (1.8-7.7); NEUTROPHILS % (AUTO) 77.9 % (42-75); PLATELET COUNT 351 X10'3 (140-440); RED BLOOD COUNT 2.86 X10'6 (4.70-6.10); RED CELL DISTRIBUTION WIDTH 18.8 % (11.5-14.5); WHITE BLOOD COUNT 19.4 X10'3 (4.5-11.0)
[2021-09-05 03:28] LABS: D-DIMER 2.49 MG/L FEU (0-0.50)
[2021-09-05 03:30] LABS: ALANINE AMINOTRANSFERASE 20 U/L (12-78); ALBUMIN/GLOBULIN RATIO 0.4 (1.1-1.5); ALKALINE PHOSPHATASE 300 IU/L (46-116); ANION GAP 3 (8-16); ASPARTATE AMINO TRANSFERASE 25 U/L (10-37); BILIRUBIN,TOTAL 0.4 MG/DL (0.1-1.0); BLOOD UREA NITROGEN 11 MG/DL (7-18); BUN/CREATININE RATIO 25.6 (5.4-32.0); CALCIUM 8.6 MG/DL (8.5-10.1); CHLORIDE 101 MMOL/L (99-107); CREATININE 0.43 MG/DL (0.60-1.10); GLUCOSE 139 MG/DL (70-104); LACTATE DEHYDROGENASE 327 U/L (85-227); MAGNESIUM 2.3 MG/DL (1.5-2.4); PHOSPHORUS 3.7 MG/DL (2.3-4.5); POTASSIUM 4.4 MMOL/L (3.5-5.1); SODIUM 137 MMOL/L (135-145); TOTAL PROTEIN 6.7 G/DL (6.4-8.2); eGFR > 90 ML/MIN
[2021-09-05 03:47] LABS: C-REACTIVE PROTEIN 32.67 MG/DL (0.0-0.5)
[2021-09-05 03:49] LABS: PLATELET ESTIMATE NORMAL
[2021-09-05 03:50] LABS: POLYCHROMASIA FEW; TEAR DROP CELLS FEW
[2021-09-05] MEDS: TRIMETHOPRIM IV SCH ×3 (03:58→19:35)
[2021-09-05] MEDS: WATER IV SCH ×3 (03:58→19:35)
[2021-09-05] MEDS: DEXTROSE IV SCH ×3 (03:58→19:35)
[2021-09-05] MEDS: [UNRECOGNIZED DRUG - OTHER] IV SCH ×3 (03:58→19:35)
[2021-09-05] MEDS ORDERED: morphine 2 MG/ML inj. syringe IV PRN (04:20)
[2021-09-05] MEDS: midazolam 100mg in NS 100ml 100 ML IV PRN ×3 (05:04→19:34)
[2021-09-05] MEDS: CISatracurium besylate inj. 100 MG in normal saline 100ml IV soln 90 ML IV PRN ×2 (05:13→15:53)
[2021-09-05 05:59] LABS: ABG BASE EXCESS 5.9 mmol/L (-2.0-2.0); ABG HCO3 34.6 mmol/L (22.0-26.0); ABG OXYGEN SATURATION 89.9 % (94-97); ABG PCO2 (T) 78.9 mmHg (35.0-48.0); ABG PO2 (T) 60.7 mmHg (75.0-100.0); ALLEN'S TEST Modified; FCOHb 0.4 % (0.0-3.9); FMetHb 0.5 % (0.0-1.5); FO2Hb 89.1 % (94-97); PATIENT TEMPERATURE 36.1; PEEP 14 cm H2O; RESPIRATORY RATE 30 b/min; TOTAL HEMOGLOBIN 8.1 G/dl (14.0-18.0)
[2021-09-05] MEDS: prednisone 10mg tablet PO SCH (07:49)
[2021-09-05] MEDS: docusate sodium 100mg/10ml UD cup OGT SCH ×2 (07:49→19:34)
[2021-09-05] MEDS: pantoprazole 40MG/NS 100ML BAG 100 ML IV SCH ×2 (07:50→19:37)
[2021-09-05] MEDS: NS IV SCH ×2 (07:50→20:15)
[2021-09-05] MEDS: enoxaparin 100mg/ml syringe SUBCUT SCH ×2 (07:50→19:34)
[2021-09-05] MEDS: MINOCYCLINE HCL IV SCH ×2 (07:50→20:15)
[2021-09-05] MEDS: lactobacillus rhamnosus 10,000 MMU CELLS/CAPSULE OGT SCH ×2 (07:51→19:34)
--- NOTE | 2021-09-05 11:46 | NUR ---
Pt. was tiffany @ Addendum: 09/05/21 at 1155 by Jefferson GIRON RN Pt. was tingd @9:30
[2021-09-05] MEDS ORDERED: HYDROmorph/NS 0.2 mg/ml PCA 100 ML IV SCH (13:00)
[2021-09-05] MEDS ORDERED: HYDROMORPHONE IV SCH (14:25)
[2021-09-05] MEDS ORDERED: SODIUM CHLORIDE IV SCH (14:25)
--- NOTE | 2021-09-05 16:39 | NUR ---
Pt supine @1500. Saturation @87.
[2021-09-05] MEDS: NORepinephrine 8mg/ 250ml NS 250 ML IV SCH ×2 (19:35→23:47)
[2021-09-05] MEDS: insulin glargine (Lantus) pen - multi-dose SQ SCH (20:20)
--- NOTE | 2021-09-05 22:24 | NUR ---
35 yo male, admitted 07/23/2021, day 45 of hospitalization, DNR, NDA, no isolation, no restraints. Initially pt was seen 07/10/2021 in ER for COVID symptoms for 8 days prior to the first ER visit. 07/23/2021 pt return to ER for increased SOB, placed BiPAP admission to ICU. 07/24/2021 pt was emergently intubated. 07/30/2021 pt placed on Rotoprone bed. 08/09/2021 Right pneumo- chest tube placed. 08/10/2021 left TENSION Pneumo- chest tube placed . 08/22/2021 GIB- Protonix gtt started . 08/26/2021 Left pneumo increased. 08/27/2021 Hgb dropped- blood transfusion. 08/29/2021 PICC Line placed HELEN. 09/05/2021 CT C/A/P and head. Currently pt is afebrile 37.0, Pt had CT head, Pt is sedated with Dilaudid infusion at 4 mg hour, Diprivan at 50 mcgs (26.49 ml's), Versed 20 mg (20 ml's), Nimbex .199 mcgs. TO4 1/2 at 10. HR 126 SR/ST BP 96/66 supported with Levophed at .02 mcgs (Titratable). Good pulses, +3 jennifer edema. All IVF infusing via HELEN TL PICC Line. dressing CDI, good blood return. Lovenox for DVT prophylaxis. Pt has 2 chest tubes Rt and Lt. No drainage noted. Right chest tube with air leak. Pt remains intubated since 07/24/2021. #8 ETT, 25 cm, VENT AC/ PC, rate 30, TV 452+/-, FIO2 100%, PEEP 16. Coarse, diminished, equal, symmetrical. wantrajesh sats between 88-92%. Pt had CT chest Abdomen and pelvis completed. Pt taken off Rotorest bed and placed in regular bed with orders to Prone q 4 hours. Pt was proned at 1900. At 2230 pt desated to 77%, PT returned to supine position, Saturation 84-85%. Hypoactive bowel sounds, soft nontender non distended. OG tube infusing Vital AF at 65 ml's hour (43 carbs). Rectal tube draining brown stool. Glucose checks Q 6 hours at level 4. Coverage with regular insulin and Lantus. IVPB Protonix for GI prophylaxis. Gonzalez draining dennis urine at 50-150 ml's hour. Multiple skin issues, due to proning. Pt remains safe, Continue to monitor. Per updated family. Continue to monitor and updates. Addendum: 09/06/21 at 0049 by Isaac Camejo RN 0000 pt remains supine saturation 95% fio2 100% PEEP 14. Addendum: 09/06/21 at 0232 by Isaac Camejo RN 0100 pt remains supine, saturation 94% PEEP 14 Addendum: 09/06/21 at 0233 by Isaac Camejo RN 0200 pt remains supine saturation 95%, fio2 100% PEEP 12. dressing BLLE changed sacral dressing CDI. Addendum: 09/06/21 at 0321 by Isaac Camejo RN 0300 pt remains supine saturation 95%, fio2 100% PEEP 12 Addendum: 09/06/21 at 0412 by Isaac Camejo RN 0400 pt remains supine FIO2 100% PEEP 10 Saturation 95% Addendum: 09/06/21 at 0543 by Isaac Camejo RN 0500 PT REMAINS SUPINE, SATURATION 95%, FIO2 100% PEEP 8 Addendum: 09/06/21 at 0559 by Isaac Camejo RN 0600 PT REMAINS SUPINE, SATURATION 93% PEEP 9, FIO2 100%
[2021-09-05] MEDS: metroNIDAZOLE-Flagyl 500mg/NS 100 ML IV SCH (23:52)
[2021-09-06] VITALS (29 sets, daily range): BP systolic 91–128; BP diastolic 53–73
[2021-09-06] MEDS: midazolam 100mg in NS 100ml 100 ML IV PRN ×4 (00:55→20:55)
[2021-09-06] MEDS: HYDROMORPHONE IV SCH ×6 (01:00→23:00)
[2021-09-06] MEDS: SODIUM CHLORIDE IV SCH ×6 (01:00→23:00)
[2021-09-06] MEDS: mineral oil/petrolatum ophthal oint EACHEYE SCH ×3 (01:10→20:24)
--- NOTE | 2021-09-06 01:15 | NUR ---
Unable to record VOLUMES ON MAR Dilaudid infusion reports: 09/05/2021 2300 Total given 29.7 remaining in bag 68.7 09/06/2021 0100 total given 37.70 remaining in bag 60.7
[2021-09-06] MEDS: insulin regular, human U-100 3ml vial - multi-dose SQ SCH ×3 (02:07→20:00)
[2021-09-06] MEDS: propofol 1000mg/100ml bottle 100 ML IV SCH ×5 (02:19→23:37)
[2021-09-06] MEDS: CISatracurium besylate inj. 100 MG in normal saline 100ml IV soln 90 ML IV PRN (02:21)
[2021-09-06 02:45] LABS: BASOPHILS % (AUTO) 0.3 % (0-1); EOSINOPHILS % (AUTO) 0.1 % (0-6); HEMATOCRIT 22.1 % (42.0-52.0); HEMOGLOBIN 7.3 g/dl (14.0-17.9); LYMPHOCYTES # (AUTO) 1.2 X10'3 (1.1-4.8); LYMPHOCYTES % (AUTO) 8.4 % (21-51); MEAN CORPUSCULAR HEMOGLOBIN 28.7 PG (27.0-31.0); MEAN CORPUSCULAR HGB CONC 32.8 g/dL (33.0-36.5); MEAN CORPUSCULAR VOLUME 87.4 FL (78-98); MEAN PLATELET VOLUME 8.4 FL (7.4-10.4); MONOCYTES % (AUTO) 7.1 % (2-12); NEUTROPHILS # (AUTO) 12.2 X10'3 (1.8-7.7); NEUTROPHILS % (AUTO) 84.1 % (42-75); PLATELET COUNT 313 X10'3 (140-440); RED BLOOD COUNT 2.53 X10'6 (4.70-6.10); WHITE BLOOD COUNT 14.5 X10'3 (4.5-11.0)
[2021-09-06 02:59] LABS: ALANINE AMINOTRANSFERASE 49 U/L (12-78); ALBUMIN 1.8 G/DL (3.4-5.0); ALBUMIN/GLOBULIN RATIO 0.4 (1.1-1.5); ALKALINE PHOSPHATASE 413 IU/L (46-116); ANION GAP 3 (8-16); BILIRUBIN,TOTAL 0.4 MG/DL (0.1-1.0); BLOOD UREA NITROGEN 15 MG/DL (7-18); BUN/CREATININE RATIO 29.4 (5.4-32.0); CALCIUM 8.6 MG/DL (8.5-10.1); CHLORIDE 99 MMOL/L (99-107); CREATININE 0.51 MG/DL (0.60-1.10); GLUCOSE 151 MG/DL (70-104); LACTATE DEHYDROGENASE 330 U/L (85-227); MAGNESIUM 2.1 MG/DL (1.5-2.4); PHOSPHORUS 3.6 MG/DL (2.3-4.5); SODIUM 133 MMOL/L (135-145); TOTAL CARBON DIOXIDE 30.7 MMOL/L (24-32); TOTAL PROTEIN 6.2 G/DL (6.4-8.2); eGFR > 90 ML/MIN
[2021-09-06 03:18] LABS: ASPARTATE AMINO TRANSFERASE 55 U/L (10-37)
[2021-09-06 03:52] LABS: ABG BASE EXCESS 3.7 mmol/L (-2.0-2.0); ABG OXYGEN SATURATION 95.3 % (94-97); ABG PCO2 (T) 65.8 mmHg (35.0-48.0); ABG PO2 (T) 84.1 mmHg (75.0-100.0); ALLEN'S TEST POSITIVE; FCOHb 0.5 % (0.0-3.9); FMetHb 0.5 % (0.0-1.5); FO2Hb 94.3 % (94-97); PATIENT TEMPERATURE 37.3; PEEP 12 cm H2O; RESPIRATORY RATE 30 b/min; TOTAL HEMOGLOBIN 8.1 G/dl (14.0-18.0)
[2021-09-06 04:05] LABS: D-DIMER 2.33 MG/L FEU (0-0.50)
[2021-09-06 04:09] LABS: ANISOCYTOSIS 2+
[2021-09-06 04:11] LABS: ANISOCYTOSIS 2+; PLATELET ESTIMATE NORMAL; POLYCHROMASIA FEW
[2021-09-06 04:12] LABS: ELLIPTOCYTES FEW; TEAR DROP CELLS FEW
[2021-09-06] MEDS: [UNRECOGNIZED DRUG - OTHER] IV SCH ×3 (04:45→21:33)
[2021-09-06] MEDS: TRIMETHOPRIM IV SCH ×3 (04:45→21:33)
[2021-09-06] MEDS: WATER IV SCH ×3 (04:45→21:33)
[2021-09-06] MEDS: DEXTROSE IV SCH ×3 (04:45→21:33)
[2021-09-06] MEDS: pantoprazole 40MG/NS 100ML BAG 100 ML IV SCH ×2 (07:23→19:50)
[2021-09-06] MEDS: NS IV SCH ×2 (07:23→20:23)
[2021-09-06] MEDS: metroNIDAZOLE-Flagyl 500mg/NS 100 ML IV SCH ×3 (07:23→23:50)
[2021-09-06] MEDS: docusate sodium 100mg/10ml UD cup OGT SCH ×2 (07:23→20:24)
[2021-09-06] MEDS: MINOCYCLINE HCL IV SCH ×2 (07:23→20:23)
[2021-09-06] MEDS: enoxaparin 100mg/ml syringe SUBCUT SCH ×2 (07:23→20:03)
[2021-09-06] MEDS: lactobacillus rhamnosus 10,000 MMU CELLS/CAPSULE OGT SCH ×2 (07:23→20:24)
--- NOTE | 2021-09-06 11:18 | NUR ---
Reassessment: Pt remains intubated and tolerating TF at goal rate of 65 mL/hr given high kcal from Propofol which remains unchanged at this time. Pt no longer on rotoprone bed. Noted serum Na low this morning at 133 MMOL/L, MD requests decreasing water flushes to 50 mL Q6H. LBM 09/05, documented with 300 mL stool output per I&O. Pt receiving routine bowel care. Will continue to follow and make recommendations as appropriate. Recommendations: 1) Given Propofol rate of 26.49 mL/hr (699 kcal/day), continuous Vital AF with goal rate of 65 mL/hr to provide 1560 mL total volume/day, 1872 kcal, 117 g protein, and 1265 mL water 2) Monitor for adjustments in Propofol rate and adjust TF as appropriate 3) IF Propofol is discontinued, resume continuous Vital AF with goal rate of 85 mL/hr to provide 2040 mL total volume/day, 2448 kcal, 153 g protein, and 1654 mL water 4) Additional 50 mL water flush Q6H per MD; monitor serum Na 5) Prealbumin q Thursday/ 6) Daily scaled weights 7) Routine bowel care 8) PO diet advancement to CHO controlled as medically indicated following extubation; Will need BSS with ST prior to PO diet advancement 9) DM education once stable following extubation and official DM dx by physician; A1c 10.1% with no PMH DM in EMR Addendum: 09/06/21 at [address] Amended: Links added.
[2021-09-06] MEDS ORDERED: naloxone 0.4 mg/ml inj IV PRN (13:45)
--- NOTE | 2021-09-06 19:00 | NUR ---
Patient in room CICU 2008. I have received report from Jefferson BOWEN and had the opportunity to ask questions and assume patient care.
[2021-09-06] MEDS: insulin glargine (Lantus) pen - multi-dose SQ SCH (20:01)
[2021-09-06] MEDS: NORepinephrine 8mg/ 250ml NS 250 ML IV SCH (20:27)
[2021-09-07] VITALS (27 sets, daily range): BP systolic 103–134; BP diastolic 64–77
[2021-09-07] MEDS: midazolam 100mg in NS 100ml 100 ML IV PRN ×4 (00:57→15:27)
[2021-09-07] MEDS: HYDROMORPHONE IV SCH ×6 (01:00→23:00)
[2021-09-07] MEDS: SODIUM CHLORIDE IV SCH ×6 (01:00→23:00)
[2021-09-07] MEDS: NORepinephrine 8mg/ 250ml NS 250 ML IV SCH ×2 (01:35→14:25)
[2021-09-07] MEDS: insulin regular, human U-100 3ml vial - multi-dose SQ SCH ×4 (02:17→20:04)
[2021-09-07] MEDS: mineral oil/petrolatum ophthal oint EACHEYE SCH ×4 (02:18→20:08)
[2021-09-07 02:33] LABS: BASOPHILS # (AUTO) 0.1 X10'3 (0-0.2); BASOPHILS % (AUTO) 0.6 % (0-1); EOSINOPHILS # (AUTO) 0.3 X10'3 (0-0.9); EOSINOPHILS % (AUTO) 2.1 % (0-6); HEMATOCRIT 22.8 % (42.0-52.0); HEMOGLOBIN 7.4 g/dl (14.0-17.9); LYMPHOCYTES % (AUTO) 7.6 % (21-51); MEAN CORPUSCULAR HGB CONC 32.5 g/dL (33.0-36.5); MEAN CORPUSCULAR VOLUME 86.3 FL (78-98); MEAN PLATELET VOLUME 8.2 FL (7.4-10.4); MONOCYTES # (AUTO) 1.1 X10'3 (0-0.9); MONOCYTES % (AUTO) 8.4 % (2-12); NEUTROPHILS # (AUTO) 10.3 X10'3 (1.8-7.7); NEUTROPHILS % (AUTO) 81.3 % (42-75); PLATELET COUNT 304 X10'3 (140-440); RED BLOOD COUNT 2.64 X10'6 (4.70-6.10); RED CELL DISTRIBUTION WIDTH 19.5 % (11.5-14.5); WHITE BLOOD COUNT 12.7 X10'3 (4.5-11.0)
[2021-09-07 02:43] LABS: D-DIMER 2.86 MG/L FEU (0-0.50)
[2021-09-07 02:46] LABS: ALANINE AMINOTRANSFERASE 61 U/L (12-78); ALBUMIN 1.7 G/DL (3.4-5.0); ALBUMIN/GLOBULIN RATIO 0.4 (1.1-1.5); ALKALINE PHOSPHATASE 335 IU/L (46-116); ANION GAP 6 (8-16); ASPARTATE AMINO TRANSFERASE 45 U/L (10-37); BILIRUBIN,TOTAL 0.3 MG/DL (0.1-1.0); BLOOD UREA NITROGEN 7 MG/DL (7-18); C-REACTIVE PROTEIN 15.84 MG/DL (0.0-0.5); CALCIUM 8.6 MG/DL (8.5-10.1); CHLORIDE 102 MMOL/L (99-107); CREATININE 0.25 MG/DL (0.60-1.10); GLUCOSE 127 MG/DL (70-104); LACTATE DEHYDROGENASE 271 U/L (85-227); MAGNESIUM 1.9 MG/DL (1.5-2.4); PHOSPHORUS 2.3 MG/DL (2.3-4.5); POTASSIUM 3.7 MMOL/L (3.5-5.1); SODIUM 139 MMOL/L (135-145); TOTAL CARBON DIOXIDE 31.4 MMOL/L (24-32); TOTAL PROTEIN 6.1 G/DL (6.4-8.2); eGFR > 90 ML/MIN
[2021-09-07 04:07] LABS: ABG BASE EXCESS 6.3 mmol/L (-2.0-2.0); ABG HCO3 32.5 mmol/L (22.0-26.0); ABG OXYGEN SATURATION 91.3 % (94-97); ABG PCO2 (T) 58.4 mmHg (35.0-48.0); ABG PO2 (T) 67.6 mmHg (75.0-100.0); ALLEN'S TEST POSITIVE; FCOHb 0.4 % (0.0-3.9); FMetHb 0.5 % (0.0-1.5); FO2Hb 90.5 % (94-97); PATIENT TEMPERATURE 37.3; PEEP 9 cm H2O; RESPIRATORY RATE 30 b/min; TOTAL HEMOGLOBIN 8.1 G/dl (14.0-18.0)
[2021-09-07 04:23] LABS: TOTAL CELLS COUNTED 100
[2021-09-07 04:25] LABS: ANISOCYTOSIS 2+; PLATELET ESTIMATE NORMAL
[2021-09-07 04:31] LABS: ELLIPTOCYTES 1+; TEAR DROP CELLS FEW
[2021-09-07] MEDS: DEXTROSE IV SCH ×3 (04:50→20:08)
[2021-09-07] MEDS: TRIMETHOPRIM IV SCH ×3 (04:50→20:08)
[2021-09-07] MEDS: [UNRECOGNIZED DRUG - OTHER] IV SCH ×3 (04:50→20:08)
[2021-09-07] MEDS: WATER IV SCH ×3 (04:50→20:08)
[2021-09-07] MEDS: fentaNYL 50MCG/HOUR patch.TD72 TD SCH (05:23)
[2021-09-07] MEDS: propofol 1000mg/100ml bottle 100 ML IV SCH ×6 (07:28→23:08)
[2021-09-07] MEDS: enoxaparin 100mg/ml syringe SUBCUT SCH ×2 (07:30→20:33)
[2021-09-07] MEDS: docusate sodium 100mg/10ml UD cup OGT SCH ×2 (07:30→20:33)
[2021-09-07] MEDS: lactobacillus rhamnosus 10,000 MMU CELLS/CAPSULE OGT SCH ×2 (07:30→20:33)
[2021-09-07] MEDS: pantoprazole 40MG/NS 100ML BAG 100 ML IV SCH ×2 (07:31→22:35)
[2021-09-07] MEDS: metroNIDAZOLE-Flagyl 500mg/NS 100 ML IV SCH (07:31)
[2021-09-07] MEDS: acetaminophen 325mg/10.15ml oral unit dose solution OGT PRN (09:42)
[2021-09-07] MEDS: NS IV SCH ×2 (10:07→22:33)
[2021-09-07] MEDS: MINOCYCLINE HCL IV SCH ×2 (10:07→22:33)
[2021-09-07 14:11] LABS: ABG BASE EXCESS 1.9 mmol/L (-2.0-2.0); ABG HCO3 29.7 mmol/L (22.0-26.0); ABG OXYGEN SATURATION 89.6 % (94-97); ABG PCO2 (T) 67.5 mmHg (35.0-48.0); ABG PO2 (T) 69.1 mmHg (75.0-100.0); ALLEN'S TEST POSITIVE; FCOHb 0.8 % (0.0-3.9); FMetHb 0.3 % (0.0-1.5); FO2Hb 88.6 % (94-97); PATIENT TEMPERATURE 38.1; PEEP 12 cm H2O; RESPIRATORY RATE 30 b/min; TOTAL HEMOGLOBIN 10.4 G/dl (14.0-18.0)
--- NOTE | 2021-09-07 18:08 | NUR ---
Problems reprioritized. Patient report given, questions answered & plan of care reviewed with Jose BOWEN.
[2021-09-07] MEDS: insulin glargine (Lantus) pen - multi-dose SQ SCH (20:05)
[2021-09-07] MEDS: nystatin 15 GM powder TP SCH (20:34)
[2021-09-08] VITALS (27 sets, daily range): BP systolic 95–124; BP diastolic 50–78
[2021-09-08] MEDS: metroNIDAZOLE-Flagyl 500mg/NS 100 ML IV SCH ×4 (00:59→15:25)
[2021-09-08] MEDS: HYDROMORPHONE IV SCH ×12 (01:00→23:00)
[2021-09-08] MEDS: SODIUM CHLORIDE IV SCH ×12 (01:00→23:00)
[2021-09-08 02:20] LABS: BASOPHILS # (AUTO) 0.1 X10'3 (0-0.2); BASOPHILS % (AUTO) 0.7 % (0-1); EOSINOPHILS # (AUTO) 0.3 X10'3 (0-0.9); EOSINOPHILS % (AUTO) 2.1 % (0-6); HEMOGLOBIN 7.1 g/dl (14.0-17.9); LYMPHOCYTES # (AUTO) 1.1 X10'3 (1.1-4.8); LYMPHOCYTES % (AUTO) 7.5 % (21-51); MEAN CORPUSCULAR HEMOGLOBIN 28.1 PG (27.0-31.0); MEAN CORPUSCULAR HGB CONC 32.4 g/dL (33.0-36.5); MEAN CORPUSCULAR VOLUME 86.6 FL (78-98); MEAN PLATELET VOLUME 8.4 FL (7.4-10.4); MONOCYTES # (AUTO) 1.1 X10'3 (0-0.9); MONOCYTES % (AUTO) 7.4 % (2-12); NEUTROPHILS # (AUTO) 12.5 X10'3 (1.8-7.7); NEUTROPHILS % (AUTO) 82.3 % (42-75); PLATELET COUNT 296 X10'3 (140-440); RED BLOOD COUNT 2.53 X10'6 (4.70-6.10); RED CELL DISTRIBUTION WIDTH 20.1 % (11.5-14.5); WHITE BLOOD COUNT 15.2 X10'3 (4.5-11.0)
[2021-09-08 02:27] LABS: HEMATOCRIT 21.9 % (42.0-52.0)
[2021-09-08] MEDS: mineral oil/petrolatum ophthal oint EACHEYE SCH ×4 (02:28→20:42)
[2021-09-08 02:33] LABS: D-DIMER 2.16 MG/L FEU (0-0.50)
[2021-09-08 02:38] LABS: ALANINE AMINOTRANSFERASE 80 U/L (12-78); ALBUMIN 1.7 G/DL (3.4-5.0); ALBUMIN/GLOBULIN RATIO 0.4 (1.1-1.5); ALKALINE PHOSPHATASE 323 IU/L (46-116); ANION GAP 4 (8-16); ASPARTATE AMINO TRANSFERASE 64 U/L (10-37); BILIRUBIN,TOTAL 0.3 MG/DL (0.1-1.0); BLOOD UREA NITROGEN 8 MG/DL (7-18); CALCIUM 8.4 MG/DL (8.5-10.1); CHLORIDE 103 MMOL/L (99-107); CREATININE 0.25 MG/DL (0.60-1.10); GLUCOSE 111 MG/DL (70-104); LACTATE DEHYDROGENASE 283 U/L (85-227); PHOSPHORUS 2.7 MG/DL (2.3-4.5); POTASSIUM 3.9 MMOL/L (3.5-5.1); SODIUM 139 MMOL/L (135-145); TOTAL CARBON DIOXIDE 31.6 MMOL/L (24-32); TOTAL PROTEIN 6.2 G/DL (6.4-8.2); eGFR > 90 ML/MIN
[2021-09-08 02:48] LABS: C-REACTIVE PROTEIN 24.47 MG/DL (0.0-0.5)
[2021-09-08] MEDS: NORepinephrine 8mg/ 250ml NS 250 ML IV SCH ×2 (03:15→16:05)
[2021-09-08 04:20] LABS: ABG BASE EXCESS 5.8 mmol/L (-2.0-2.0); ABG HCO3 32.4 mmol/L (22.0-26.0); ABG OXYGEN SATURATION 89.2 % (94-97); ABG PCO2 (T) 60.8 mmHg (35.0-48.0); ABG PO2 (T) 65.1 mmHg (75.0-100.0); ALLEN'S TEST POSITIVE; FCOHb 0.6 % (0.0-3.9); FMetHb 0.4 % (0.0-1.5); FO2Hb 88.3 % (94-97); PATIENT TEMPERATURE 37.2; PEEP 10 cm H2O; RESPIRATORY RATE 30 b/min; TOTAL HEMOGLOBIN 8.1 G/dl (14.0-18.0)
[2021-09-08 04:49] LABS: PLATELET ESTIMATE NORMAL
[2021-09-08] MEDS: TRIMETHOPRIM IV SCH ×3 (05:05→19:31)
[2021-09-08] MEDS: DEXTROSE IV SCH ×3 (05:05→19:31)
[2021-09-08] MEDS: WATER IV SCH ×3 (05:05→19:31)
[2021-09-08] MEDS: [UNRECOGNIZED DRUG - OTHER] IV SCH ×3 (05:05→19:31)
[2021-09-08] MEDS: propofol 1000mg/100ml bottle 100 ML IV SCH ×6 (07:17→21:21)
[2021-09-08] MEDS: enoxaparin 100mg/ml syringe SUBCUT SCH ×2 (07:56→20:41)
[2021-09-08] MEDS: MINOCYCLINE HCL IV SCH ×2 (07:56→20:40)
[2021-09-08] MEDS: lactobacillus rhamnosus 10,000 MMU CELLS/CAPSULE OGT SCH ×2 (07:56→20:41)
[2021-09-08] MEDS: NS IV SCH ×2 (07:56→20:40)
[2021-09-08] MEDS: docusate sodium 100mg/10ml UD cup OGT SCH ×2 (07:56→20:41)
[2021-09-08] MEDS: pantoprazole 40MG/NS 100ML BAG 100 ML IV SCH ×2 (07:57→20:40)
[2021-09-08] MEDS: nystatin 15 GM powder TP SCH ×3 (08:58→20:42)
[2021-09-08] MEDS: midazolam 100mg in NS 100ml 100 ML IV PRN ×2 (10:09→20:20)
[2021-09-08] MEDS: insulin regular, human U-100 3ml vial - multi-dose SQ SCH ×2 (14:31→21:27)
[2021-09-08 16:25] LABS: BASOPHILS # (AUTO) 0.1 X10'3 (0-0.2); HEMOGLOBIN 7.9 g/dl (14.0-17.9); LYMPHOCYTES # (AUTO) 1.4 X10'3 (1.1-4.8); PLATELET COUNT 310 X10'3 (140-440)
[2021-09-08 16:26] LABS: BASOPHILS % (AUTO) 0.5 % (0-1); EOSINOPHILS # (AUTO) 0.4 X10'3 (0-0.9); HEMATOCRIT 23.6 % (42.0-52.0); LYMPHOCYTES % (AUTO) 7.7 % (21-51); MEAN CORPUSCULAR HEMOGLOBIN 29.1 PG (27.0-31.0); MEAN CORPUSCULAR HGB CONC 33.4 g/dL (33.0-36.5); MEAN CORPUSCULAR VOLUME 87.1 FL (78-98); MEAN PLATELET VOLUME 8.6 FL (7.4-10.4); MONOCYTES # (AUTO) 1.2 X10'3 (0-0.9); MONOCYTES % (AUTO) 6.4 % (2-12); NEUTROPHILS # (AUTO) 15.4 X10'3 (1.8-7.7); NEUTROPHILS % (AUTO) 83.4 % (42-75); RED BLOOD COUNT 2.71 X10'6 (4.70-6.10); RED CELL DISTRIBUTION WIDTH 18.7 % (11.5-14.5); WHITE BLOOD COUNT 18.4 X10'3 (4.5-11.0)
--- NOTE | 2021-09-08 16:52 | NUR ---
Pt proned at [address] Renee order. While supine pt's saturations 82-84%. Saturations have improved to 86-88% while proned.
[2021-09-08 17:15] LABS: TOTAL CELLS COUNTED 100
[2021-09-08 17:16] LABS: ANISOCYTOSIS 2+; PLATELET ESTIMATE NORMAL; TEAR DROP CELLS 2+
--- NOTE | 2021-09-08 18:20 | NUR ---
Patient in room CICU 2008. I have received report from ANDRÉS Godoy and had the opportunity to ask questions and assume patient care. Patient in prone position, Saturating 91% on 100% FiO2 PEEP 12. Heart rate 116 sinus tachycardia. Lung sounds present bilaterally - course throughout. Sedation maintained as ordered by MD see IV spreadsheet.
[2021-09-08] MEDS: CADD PCA waste documentation MC PRN (19:23)
[2021-09-08] MEDS: insulin glargine (Lantus) pen - multi-dose SQ SCH (21:28)
[2021-09-09] VITALS (30 sets, daily range): BP systolic 97–135; BP diastolic 49–93
[2021-09-09] MEDS: propofol 1000mg/100ml bottle 100 ML IV SCH ×4 (00:47→10:00)
[2021-09-09] MEDS: metroNIDAZOLE-Flagyl 500mg/NS 100 ML IV SCH ×3 (00:48→16:13)
[2021-09-09] MEDS: HYDROMORPHONE IV SCH ×12 (01:00→23:00)
[2021-09-09] MEDS: SODIUM CHLORIDE IV SCH ×12 (01:00→23:00)
[2021-09-09] MEDS: mineral oil/petrolatum ophthal oint EACHEYE SCH ×4 (02:53→19:38)
[2021-09-09] MEDS: insulin regular, human U-100 3ml vial - multi-dose SQ SCH ×4 (03:22→19:56)
[2021-09-09 03:29] LABS: ALBUMIN 1.7 G/DL (3.4-5.0); ALBUMIN/GLOBULIN RATIO 0.3 (1.1-1.5); ALKALINE PHOSPHATASE 386 IU/L (46-116); BILIRUBIN,TOTAL 0.4 MG/DL (0.1-1.0); BLOOD UREA NITROGEN 13 MG/DL (7-18); BUN/CREATININE RATIO 41.9 (5.4-32.0); CALCIUM 8.4 MG/DL (8.5-10.1); CHLORIDE 100 MMOL/L (99-107); CREATININE 0.31 MG/DL (0.60-1.10); EOSINOPHILS # (AUTO) 0.4 X10'3 (0-0.9); EOSINOPHILS % (AUTO) 2.2 % (0-6); HEMOGLOBIN 7.9 g/dl (14.0-17.9); MAGNESIUM 2.1 MG/DL (1.5-2.4); PHOSPHORUS 3.3 MG/DL (2.3-4.5); PREALBUMIN 11.9 MG/DL (19-36); TOTAL CARBON DIOXIDE 31.7 MMOL/L (24-32); TOTAL PROTEIN 6.7 G/DL (6.4-8.2); eGFR > 90 ML/MIN
[2021-09-09 03:30] LABS: ABG BASE EXCESS 3.1 mmol/L (-2.0-2.0); ABG HCO3 29.6 mmol/L (22.0-26.0); ABG OXYGEN SATURATION 93.9 % (94-97); ABG PCO2 (T) 57.4 mmHg (35.0-48.0); ABG PO2 (T) 78.5 mmHg (75.0-100.0); ALLEN'S TEST POSITIVE; FCOHb 0.2 % (0.0-3.9); FMetHb 0.4 % (0.0-1.5); FO2Hb 93.3 % (94-97); PATIENT TEMPERATURE 37.3; PEEP 12 cm H2O; RESPIRATORY RATE 30 b/min; TOTAL HEMOGLOBIN 8.6 G/dl (14.0-18.0)
[2021-09-09 03:30] LABS: BASOPHILS # (AUTO) 0.1 X10'3 (0-0.2); BASOPHILS % (AUTO) 0.4 % (0-1); HEMATOCRIT 23.2 % (42.0-52.0); LYMPHOCYTES # (AUTO) 1.6 X10'3 (1.1-4.8); LYMPHOCYTES % (AUTO) 9.4 % (21-51); MEAN CORPUSCULAR HEMOGLOBIN 29.3 PG (27.0-31.0); MEAN CORPUSCULAR VOLUME 86.2 FL (78-98); MEAN PLATELET VOLUME 8.6 FL (7.4-10.4); MONOCYTES # (AUTO) 1.1 X10'3 (0-0.9); MONOCYTES % (AUTO) 6.4 % (2-12); NEUTROPHILS # (AUTO) 14.1 X10'3 (1.8-7.7); NEUTROPHILS % (AUTO) 81.6 % (42-75); PLATELET COUNT 310 X10'3 (140-440); RED BLOOD COUNT 2.69 X10'6 (4.70-6.10); WHITE BLOOD COUNT 17.3 X10'3 (4.5-11.0)
[2021-09-09 03:43] LABS: ANION GAP 5 (8-16); GLUCOSE 148 MG/DL (70-104); SODIUM 137 MMOL/L (135-145)
[2021-09-09 03:46] LABS: ALANINE AMINOTRANSFERASE 132 U/L (12-78); ASPARTATE AMINO TRANSFERASE 106 U/L (10-37); LACTATE DEHYDROGENASE 313 U/L (85-227)
[2021-09-09 03:50] LABS: C-REACTIVE PROTEIN 25.31 MG/DL (0.0-0.5)
[2021-09-09] MEDS: TRIMETHOPRIM IV SCH ×3 (03:57→19:39)
[2021-09-09] MEDS: [UNRECOGNIZED DRUG - OTHER] IV SCH ×3 (03:57→19:39)
[2021-09-09] MEDS: WATER IV SCH ×3 (03:57→19:39)
[2021-09-09] MEDS: DEXTROSE IV SCH ×3 (03:57→19:39)
[2021-09-09 04:22] LABS: NUCLEATED RED BLOOD CELLS 1 /100WBC (0-0); TOTAL CELLS COUNTED 100
[2021-09-09 04:23] LABS: ANISOCYTOSIS 2+; PLATELET ESTIMATE NORMAL
[2021-09-09 04:31] LABS: TEAR DROP CELLS 1+
[2021-09-09] MEDS: NORepinephrine 8mg/ 250ml NS 250 ML IV SCH (04:55)
--- NOTE | 2021-09-09 05:00 | NUR ---
unable to place patient supine due to lack of staff to do so safely. Bed bath, skin assessment completed as position allowed.
[2021-09-09] MEDS: midazolam 100mg in NS 100ml 100 ML IV PRN ×2 (06:06→16:13)
--- NOTE | 2021-09-09 06:10 | NUR ---
Problems reprioritized. Patient report given, questions answered & plan of care reviewed with ANDRÉS Godoy.
[2021-09-09] MEDS: docusate sodium 100mg/10ml UD cup OGT SCH ×2 (08:50→19:42)
[2021-09-09] MEDS: enoxaparin 100mg/ml syringe SUBCUT SCH (08:51)
[2021-09-09] MEDS: pantoprazole 40MG/NS 100ML BAG 100 ML IV SCH ×2 (08:51→19:42)
[2021-09-09] MEDS: lactobacillus rhamnosus 10,000 MMU CELLS/CAPSULE OGT SCH ×2 (08:51→19:42)
[2021-09-09] MEDS: nystatin 15 GM powder TP SCH ×3 (08:52→20:49)
[2021-09-09 09:14] LABS: TRIGLYCERIDES 752 MG/DL (20-135)
[2021-09-09] MEDS: NS IV SCH ×2 (09:46→20:49)
[2021-09-09] MEDS: MINOCYCLINE HCL IV SCH ×2 (09:46→20:49)
--- NOTE | 2021-09-09 11:31 | NUR ---
F/u 09/09: Pt Propofol at 31.788ml/hr (60mcg/kg/min) providing additional 839 kcals/day w/ subsequent TG 752 this AM per EMR. Propofol to wean per MD; TF to return to initial goal Vital AF at 85ml/hr once off Propofol. Will monitor for TF tolerance. Recommendations: 1) Continuous TF using Vital AF with goal rate of 85 mL/hr to provide 2040 mL total volume/day, 2448 kcal, 153 g protein, and 1654 mL water 2) Additional 50 mL water flush Q6H per MD; monitor serum Na 3) Prealbumin q Thursday/; Daily scaled weights 4) Routine bowel care 5) DM education once stable following extubation and official DM dx by physician; A1c 10.1% with no PMH DM in EMR Addendum: 09/09/21 at [address] Amended: Links added.
[2021-09-09] MEDS: CADD PCA waste documentation MC PRN (12:15)
[2021-09-09] MEDS: dexmedetomidine/D5W 100mL 100 ML IV SCH ×3 (13:23→20:56)
--- NOTE | 2021-09-09 18:30 | NUR ---
Patient in room CICU 2008. I have received report from ANDRÉS Godoy and had the opportunity to ask questions and assume patient care.
[2021-09-09] MEDS: enoxaparin 40mg/0.4ml syringe SQ SCH (19:42)
[2021-09-09] MEDS: insulin glargine (Lantus) pen - multi-dose SQ SCH (19:58)
--- NOTE | 2021-09-09 23:26 | NUR ---
1820 - 2300: Patient supine on 90% FiO2. PICC line dressing changed. Right chest tube dressing changed, occlusive vaseline gauze placed around tube at insertion site. No drainage at insertion site noted, skin is pink. NO SUTURES present securing tube, they have pulled out of skin. Chest tube marked to note insertion depth. Tube secured with tape.
[2021-09-10] VITALS (34 sets, daily range): BP systolic 107–134; BP diastolic 58–77
[2021-09-10] MEDS: metroNIDAZOLE-Flagyl 500mg/NS 100 ML IV SCH ×3 (00:24→15:57)
[2021-09-10] MEDS: SODIUM CHLORIDE IV SCH ×9 (01:00→23:47)
[2021-09-10] MEDS: HYDROMORPHONE IV SCH ×9 (01:00→23:47)
[2021-09-10] MEDS: dexmedetomidine/D5W 100mL 100 ML IV SCH ×7 (01:08→23:15)
[2021-09-10] MEDS: mineral oil/petrolatum ophthal oint EACHEYE SCH ×4 (02:15→20:03)
[2021-09-10] MEDS: insulin regular, human U-100 3ml vial - multi-dose SQ SCH ×4 (02:17→20:30)
[2021-09-10 03:13] LABS: BASOPHILS # (AUTO) 0.1 X10'3 (0-0.2); BASOPHILS % (AUTO) 0.5 % (0-1)
[2021-09-10 03:15] LABS: EOSINOPHILS # (AUTO) 0.5 X10'3 (0-0.9); EOSINOPHILS % (AUTO) 2.9 % (0-6); HEMATOCRIT 23.7 % (42.0-52.0); HEMOGLOBIN 7.6 g/dl (14.0-17.9); LYMPHOCYTES # (AUTO) 1.2 X10'3 (1.1-4.8); LYMPHOCYTES % (AUTO) 7.6 % (21-51); MEAN CORPUSCULAR HEMOGLOBIN 27.9 PG (27.0-31.0); MEAN CORPUSCULAR VOLUME 87.1 FL (78-98); MEAN PLATELET VOLUME 9.3 FL (7.4-10.4); MONOCYTES # (AUTO) 0.8 X10'3 (0-0.9); NEUTROPHILS # (AUTO) 13.2 X10'3 (1.8-7.7); PLATELET COUNT 302 X10'3 (140-440); RED BLOOD COUNT 2.72 X10'6 (4.70-6.10); RED CELL DISTRIBUTION WIDTH 19.5 % (11.5-14.5); WHITE BLOOD COUNT 15.6 X10'3 (4.5-11.0)
[2021-09-10 03:27] LABS: D-DIMER 1.88 MG/L FEU (0-0.50)
[2021-09-10 03:30] LABS: ALANINE AMINOTRANSFERASE 119 U/L (12-78); ALBUMIN 1.7 G/DL (3.4-5.0); ALBUMIN/GLOBULIN RATIO 0.4 (1.1-1.5); ALKALINE PHOSPHATASE 359 IU/L (46-116); ANION GAP 2 (8-16); ASPARTATE AMINO TRANSFERASE 66 U/L (10-37); BILIRUBIN,TOTAL 0.3 MG/DL (0.1-1.0); BLOOD UREA NITROGEN 14 MG/DL (7-18); BUN/CREATININE RATIO 45.2 (5.4-32.0); C-REACTIVE PROTEIN 23.25 MG/DL (0.0-0.5); CALCIUM 8.5 MG/DL (8.5-10.1); CHLORIDE 100 MMOL/L (99-107); CREATININE 0.31 MG/DL (0.60-1.10); GLUCOSE 186 MG/DL (70-104); LACTATE DEHYDROGENASE 301 U/L (85-227); PHOSPHORUS 3.7 MG/DL (2.3-4.5); POTASSIUM 4.7 MMOL/L (3.5-5.1); SODIUM 133 MMOL/L (135-145); TOTAL CARBON DIOXIDE 30.6 MMOL/L (24-32); eGFR > 90 ML/MIN
[2021-09-10 04:07] LABS: ABG BASE EXCESS 3.1 mmol/L (-2.0-2.0); ABG HCO3 28.6 mmol/L (22.0-26.0); ABG PCO2 (T) 49.5 mmHg (35.0-48.0); ABG PO2 (T) 81.2 mmHg (75.0-100.0); ALLEN'S TEST Modified; FCOHb 0.5 % (0.0-3.9); FMetHb 0.4 % (0.0-1.5); FO2Hb 93.2 % (94-97); PATIENT TEMPERATURE 37.5; PEEP 12 cm H2O; RESPIRATORY RATE 30 b/min; TIDAL VOLUME 562 mL; TOTAL HEMOGLOBIN 8.5 G/dl (14.0-18.0)
[2021-09-10] MEDS: WATER IV SCH ×3 (04:07→19:56)
[2021-09-10] MEDS: [UNRECOGNIZED DRUG - OTHER] IV SCH ×3 (04:07→19:56)
[2021-09-10] MEDS: DEXTROSE IV SCH ×3 (04:07→19:56)
[2021-09-10] MEDS: TRIMETHOPRIM IV SCH ×3 (04:07→19:56)
[2021-09-10] MEDS: midazolam 100mg in NS 100ml 100 ML IV PRN ×3 (04:10→21:29)
[2021-09-10 04:27] LABS: ANISOCYTOSIS 2+; NUCLEATED RED BLOOD CELLS 2 /100WBC (0-0); PLATELET ESTIMATE NORMAL; TOTAL CELLS COUNTED 100
[2021-09-10 04:31] LABS: LARGE PLATELETS FEW; TEAR DROP CELLS FEW
[2021-09-10] MEDS: fentaNYL 50MCG/HOUR patch.TD72 TD SCH (05:54)
--- NOTE | 2021-09-10 06:42 | NUR ---
Problems reprioritized. Patient report given, questions answered & plan of care reviewed with ANDRÉS Godoy.
[2021-09-10] MEDS: docusate sodium 100mg/10ml UD cup OGT SCH ×2 (07:58→19:57)
[2021-09-10] MEDS: enoxaparin 40mg/0.4ml syringe SQ SCH ×2 (07:58→19:57)
[2021-09-10] MEDS: lactobacillus rhamnosus 10,000 MMU CELLS/CAPSULE OGT SCH ×2 (07:58→19:57)
[2021-09-10] MEDS: pantoprazole 40MG/NS 100ML BAG 100 ML IV SCH ×2 (07:59→19:55)
[2021-09-10] MEDS: nystatin 15 GM powder TP SCH ×3 (07:59→20:04)
[2021-09-10] MEDS: MINOCYCLINE HCL IV SCH ×2 (08:21→19:58)
[2021-09-10] MEDS: NS IV SCH ×2 (08:21→19:58)
[2021-09-10] MEDS: CADD PCA waste documentation MC PRN (11:10)
[2021-09-10] MEDS ORDERED: LIDOcaine 1% (10mg/ml)w/preservative inj. 20ml MDV SQ ONE (11:25)
--- NOTE | 2021-09-10 11:31 | NUR ---
Reassessment: Pt remains intubated and tolerating TF at new goal rate of 85 mL/hr as pt no longer receiving Propofol. Pt with a slightly low serum Na of 133 MMOL/L today, water flushes to discontinue at this time per MD at critical care rounds. LBM 09/09. Per RN pt with two small BMs and with a rectal tube in place. Pt continues receiving routine bowel care BID with additional PRN bowel care available. No changes to nutrition recommendations at this time. Will continue to follow. Recommendations: 1) Continuous TF using Vital AF with goal rate of 85 mL/hr to provide 2040 mL total volume/day, 2448 kcal, 153 g protein, and 1654 mL water 2) No water flush at this time per MD; monitor serum Na 3) Prealbumin q Thursday/ 4) Daily scaled weights 5) Routine bowel care 6) DM education once stable following extubation and official DM dx by physician; A1c 10.1% with no PMH DM in [facility] Addendum: 09/10/21 at [address] Amended: Links added.
--- NOTE | 2021-09-10 19:06 | NUR ---
Dilaudid gtt infusion documentation. unable to document on OCT 1899 given 121.70 mg remains 58.3 ml's Addendum: 09/10/21 at 2131 by Isaac Camejo RN 2100 given 131.60 remains 48.4 Addendum: 09/10/21 at 2311 by Isaac Camejo RN 2300 GIVEN 138.20 REMAINS 41.8 Addendum: 09/11/21 at 0210 by Isaac Legensky - Traveler RN 0200 given 150.20 remains 29.8 Addendum: 09/11/21 at 0358 by Isaac Camejo RN 0300 given 153.40 remains 26.7 Addendum: 09/11/21 at 0445 by Isaac Camejo RN 0500 Given 160.3 mg remains 19.7 ml's
[2021-09-10] MEDS: insulin glargine (Lantus) pen - multi-dose SQ SCH (20:35)
--- NOTE | 2021-09-10 23:51 | NUR ---
35 yo male, admitted 07/23/2021, day 50 of hospitalization, DNR, NDA, no isolation, no restraints. Initially pt was seen 07/10/2021 in ER for COVID symptoms for 8 days prior to the first ER visit. 07/23/2021 pt return to ER for increased SOB, placed BiPAP admission to ICU. 07/24/2021 pt was emergently intubated. 07/30/2021 pt placed on Rotoprone bed. 08/09/2021 Right pneumo- chest tube placed. 08/10/2021 left TENSION Pneumo- chest tube placed . 08/22/2021 GIB- Protonix gtt started . 08/26/2021 Left pneumo increased. 08/27/2021 Hgb dropped- blood transfusion. 08/29/2021 PICC Line placed HELEN. 09/05/2021 CT C/A/P and head. 09/08/2021 Hgb 7.1 transfused 1 Unit PRBC. Currently, pt is afebrile 36.6, Pt is sedated with Dilaudid infusion at 4 mg hour (routine assessment, Q2hrs, documented in noted not on the MAR. MAR is not setup for the documentation), Versed 10 mg (10 ml's), Precedex 1 mcg/kg/hr (26.97 ml's hr). HR 98 SR/ BP 136/70, no longer on Levophed. Good pulses, +3 jennifer edema, scrotal and penile edema. All IVF infusing via HELEN TL PICC Line. dressing CDI, good blood return. Lovenox for DVT prophylaxis. Pt has 2 chest tubes Rt and Lt. No drainage noted. Right chest tube with air leak. Rt chest tube due to be resutured in the AM. Pt remains intubated since 07/24/2021. #8 ETT, 25 cm, (ETT changed 09/07/2021), VENT AC/ PC, rate 30, TV 452+/-, FIO2 85%, PEEP 12. Coarse, diminished, equal, symmetrical, non laborer demolition. Saturation 88-91%. Hypoactive bowel sounds, soft nontender non distended. OG tube infusing Vital AF at 85 ml's hour (56 carbs). Rectal tube draining brown stool. Glucose checks Q 6 hours at level 5. Coverage with regular insulin and Lantus. IVPB Protonix for GI prophylaxis. Gonzalez draining dennis urine at 50-100 ml's hour. Multiple skin issues, due to proning. Pt is supposed to have left groin debrided at some point. ABX Flagyl, Bactrim and Minocycline. Pt remains safe, Continue to monitor. Continue to monitor and updates.
[2021-09-11] VITALS (35 sets, daily range): BP systolic 113–147; BP diastolic 53–84
[2021-09-11] MEDS: metroNIDAZOLE-Flagyl 500mg/NS 100 ML IV SCH ×4 (00:13→23:45)
[2021-09-11] MEDS: SODIUM CHLORIDE IV SCH ×10 (01:00→23:00)
[2021-09-11] MEDS: HYDROMORPHONE IV SCH ×10 (01:00→23:00)
[2021-09-11 02:43] LABS: BASOPHILS # (AUTO) 0.1 X10'3 (0-0.2); BASOPHILS % (AUTO) 0.6 % (0-1); EOSINOPHILS # (AUTO) 0.6 X10'3 (0-0.9); EOSINOPHILS % (AUTO) 3.7 % (0-6); HEMATOCRIT 25.9 % (42.0-52.0); HEMOGLOBIN 8.1 g/dl (14.0-17.9); LYMPHOCYTES % (AUTO) 6.2 % (21-51); MEAN CORPUSCULAR HEMOGLOBIN 27.5 PG (27.0-31.0); MEAN CORPUSCULAR HGB CONC 31.1 g/dL (33.0-36.5); MEAN CORPUSCULAR VOLUME 88.2 FL (78-98); MEAN PLATELET VOLUME 8.7 FL (7.4-10.4); MONOCYTES # (AUTO) 0.9 X10'3 (0-0.9); MONOCYTES % (AUTO) 5.9 % (2-12); NEUTROPHILS # (AUTO) 13.3 X10'3 (1.8-7.7); NEUTROPHILS % (AUTO) 83.6 % (42-75); PLATELET COUNT 312 X10'3 (140-440); RED BLOOD COUNT 2.93 X10'6 (4.70-6.10); RED CELL DISTRIBUTION WIDTH 21.2 % (11.5-14.5); WHITE BLOOD COUNT 15.9 X10'3 (4.5-11.0)
[2021-09-11 02:56] LABS: D-DIMER 2.36 MG/L FEU (0-0.50)
[2021-09-11 02:58] LABS: LACTATE DEHYDROGENASE 310 U/L (85-227)
[2021-09-11] MEDS: dexmedetomidine/D5W 100mL 100 ML IV SCH ×5 (02:58→17:58)
[2021-09-11 03:24] LABS: ABG BASE EXCESS 4.6 mmol/L (-2.0-2.0); ABG HCO3 30.8 mmol/L (22.0-26.0); ABG OXYGEN SATURATION 91.8 % (94-97); ABG PCO2 (T) 54.3 mmHg (35.0-48.0); ABG PO2 (T) 66.8 mmHg (75.0-100.0); ALLEN'S TEST Modified; FCOHb 0.6 % (0.0-3.9); FMetHb 0.7 % (0.0-1.5); FO2Hb 90.6 % (94-97); PATIENT TEMPERATURE 36.7; PEEP 12 cm H2O; RESPIRATORY RATE 30 b/min
[2021-09-11 03:43] LABS: ANISOCYTOSIS 3+; NUCLEATED RED BLOOD CELLS 2 /100WBC (0-0); PLATELET ESTIMATE NORMAL; POLYCHROMASIA FEW; TEAR DROP CELLS FEW; TOTAL CELLS COUNTED 100
[2021-09-11 03:44] LABS: LARGE PLATELETS FEW
[2021-09-11] MEDS: insulin regular, human U-100 3ml vial - multi-dose SQ SCH ×3 (03:55→21:44)
[2021-09-11] MEDS: midazolam 100mg in NS 100ml 100 ML IV PRN ×2 (06:44→16:41)
[2021-09-11] MEDS: mineral oil/petrolatum ophthal oint EACHEYE SCH ×4 (06:45→19:51)
[2021-09-11] MEDS: TRIMETHOPRIM IV SCH ×3 (06:55→19:51)
[2021-09-11] MEDS: [UNRECOGNIZED DRUG - OTHER] IV SCH ×3 (06:55→19:51)
[2021-09-11] MEDS: DEXTROSE IV SCH ×3 (06:55→19:51)
[2021-09-11] MEDS: WATER IV SCH ×3 (06:55→19:51)
--- NOTE | 2021-09-11 06:56 | NUR ---
0400 bactrim dose was already given, empty 0400 bag hanging
[2021-09-11] MEDS: docusate sodium 100mg/10ml UD cup OGT SCH ×2 (07:18→20:36)
[2021-09-11] MEDS: MINOCYCLINE HCL IV SCH ×2 (07:18→20:36)
[2021-09-11] MEDS: lactobacillus rhamnosus 10,000 MMU CELLS/CAPSULE OGT SCH ×2 (07:18→20:36)
[2021-09-11] MEDS: NS IV SCH ×2 (07:18→20:36)
[2021-09-11] MEDS: nystatin 15 GM powder TP SCH ×3 (07:19→21:20)
[2021-09-11] MEDS: pantoprazole 40MG/NS 100ML BAG 100 ML IV SCH ×2 (07:19→20:36)
[2021-09-11] MEDS: enoxaparin 40mg/0.4ml syringe SQ SCH ×2 (07:21→20:36)
[2021-09-11] MEDS: CADD PCA waste documentation MC PRN (09:24)
[2021-09-11 10:48] LABS: ALANINE AMINOTRANSFERASE 108 U/L (12-78); ALBUMIN 1.8 G/DL (3.4-5.0); ALBUMIN/GLOBULIN RATIO 0.5 (1.1-1.5); ALKALINE PHOSPHATASE 334 IU/L (46-116); ANION GAP 7 (8-16); ASPARTATE AMINO TRANSFERASE 50 U/L (10-37); BILIRUBIN,TOTAL 0.2 MG/DL (0.1-1.0); BLOOD UREA NITROGEN 10 MG/DL (7-18); BUN/CREATININE RATIO 47.6 (5.4-32.0); CALCIUM 8.3 MG/DL (8.5-10.1); CHLORIDE 100 MMOL/L (99-107); CREATININE 0.21 MG/DL (0.60-1.10); GLUCOSE 139 MG/DL (70-104); POTASSIUM 4.9 MMOL/L (3.5-5.1); SODIUM 135 MMOL/L (135-145); TOTAL CARBON DIOXIDE 28.3 MMOL/L (24-32); TOTAL PROTEIN 5.3 G/DL (6.4-8.2); eGFR > 90 ML/MIN
--- NOTE | 2021-09-11 15:00 | NUR ---
Assisted Dr Renee with changing left lateral chest tube #24fr straight to left midaxillary line, placement confirmed per cxr aold ct dc'd vaseline gauze, 4x4 and foam tape applied, scant air leak, ct to -20cm suction.
--- NOTE | 2021-09-11 17:11 | NUR ---
duilaudid dose charting time total dose given remaining in bag 0700 166.5mg12.0ml 0900 174mg5.0ml 1100 181mg 96ml 1300 [id number] 1500 [id number] 1700 [id number]
[2021-09-11] MEDS: insulin glargine (Lantus) pen - multi-dose SQ SCH (21:42)
[2021-09-12] VITALS (29 sets, daily range): BP systolic 100–142; BP diastolic 53–86
[2021-09-12] MEDS: SODIUM CHLORIDE IV SCH ×17 (01:00→23:00)
[2021-09-12] MEDS: HYDROMORPHONE IV SCH ×17 (01:00→23:00)
[2021-09-12] MEDS: mineral oil/petrolatum ophthal oint EACHEYE SCH ×4 (02:26→20:04)
[2021-09-12] MEDS: insulin regular, human U-100 3ml vial - multi-dose SQ SCH ×4 (02:37→20:11)
[2021-09-12 03:19] LABS: D-DIMER 2.67 MG/L FEU (0-0.50)
[2021-09-12 03:32] LABS: LACTATE DEHYDROGENASE 287 U/L (85-227); PREALBUMIN 14.2 MG/DL (19-36)
[2021-09-12 03:43] LABS: ABG BASE EXCESS 9.3 mmol/L (-2.0-2.0); ABG HCO3 37.2 mmol/L (22.0-26.0); ABG OXYGEN SATURATION 86.9 % (94-97); ABG PCO2 (T) 77.1 mmHg (35.0-48.0); ABG PO2 (T) 54.7 mmHg (75.0-100.0); ALLEN'S TEST Modified; FCOHb 1.4 % (0.0-3.9); FMetHb 0.4 % (0.0-1.5); FO2Hb 85.3 % (94-97); PATIENT TEMPERATURE 37.1; PEEP 12 cm H2O; RESPIRATORY RATE 30 b/min; TOTAL HEMOGLOBIN 8.3 G/dl (14.0-18.0)
[2021-09-12] MEDS: TRIMETHOPRIM IV SCH ×3 (04:37→20:08)
[2021-09-12] MEDS: WATER IV SCH ×3 (04:37→20:08)
[2021-09-12] MEDS: [UNRECOGNIZED DRUG - OTHER] IV SCH ×3 (04:37→20:08)
[2021-09-12] MEDS: DEXTROSE IV SCH ×3 (04:37→20:08)
[2021-09-12 04:52] LABS: ALBUMIN 1.8 G/DL (3.4-5.0); ANION GAP 3 (8-16); BLOOD UREA NITROGEN 9 MG/DL (7-18); CALCIUM 7.4 MG/DL (8.5-10.1); CHLORIDE 98 MMOL/L (99-107); CREATININE 0.15 MG/DL (0.60-1.10); GLUCOSE 229 MG/DL (70-104); POTASSIUM 4.9 MMOL/L (3.5-5.1); SODIUM 135 MMOL/L (135-145); TOTAL CARBON DIOXIDE 33.7 MMOL/L (24-32); eGFR > 90 ML/MIN
[2021-09-12 04:57] LABS: BASOPHILS # (AUTO) 0.1 X10'3 (0-0.2); BASOPHILS % (AUTO) 0.6 % (0-1); EOSINOPHILS # (AUTO) 0.2 X10'3 (0-0.9); EOSINOPHILS % (AUTO) 1.3 % (0-6); HEMATOCRIT 25.6 % (42.0-52.0); HEMOGLOBIN 8.1 g/dl (14.0-17.9); LYMPHOCYTES # (AUTO) 0.8 X10'3 (1.1-4.8); LYMPHOCYTES % (AUTO) 4.7 % (21-51); MEAN CORPUSCULAR HGB CONC 31.4 g/dL (33.0-36.5); MEAN PLATELET VOLUME 9.4 FL (7.4-10.4); MONOCYTES % (AUTO) 5.8 % (2-12); NEUTROPHILS # (AUTO) 14.5 X10'3 (1.8-7.7); NEUTROPHILS % (AUTO) 87.6 % (42-75); PLATELET COUNT 320 X10'3 (140-440); RED BLOOD COUNT 2.88 X10'6 (4.70-6.10); RED CELL DISTRIBUTION WIDTH 20.6 % (11.5-14.5); WHITE BLOOD COUNT 16.6 X10'3 (4.5-11.0)
[2021-09-12 05:11] LABS: ANISOCYTOSIS 3+; PLATELET ESTIMATE NORMAL
[2021-09-12 05:12] LABS: LARGE PLATELETS FEW; POLYCHROMASIA FEW; STOMATOCYTES FEW; TEAR DROP CELLS FEW
[2021-09-12] MEDS: metroNIDAZOLE-Flagyl 500mg/NS 100 ML IV SCH ×2 (08:16→16:04)
[2021-09-12] MEDS: pantoprazole 40MG/NS 100ML BAG 100 ML IV SCH ×2 (08:16→20:04)
[2021-09-12] MEDS: NS IV SCH ×2 (08:17→20:04)
[2021-09-12] MEDS: enoxaparin 40mg/0.4ml syringe SQ SCH ×2 (08:17→20:05)
[2021-09-12] MEDS: lactobacillus rhamnosus 10,000 MMU CELLS/CAPSULE OGT SCH ×2 (08:17→20:04)
[2021-09-12] MEDS: MINOCYCLINE HCL IV SCH ×2 (08:17→20:04)
[2021-09-12] MEDS: docusate sodium 100mg/10ml UD cup OGT SCH ×2 (08:17→20:04)
[2021-09-12] MEDS: nystatin 15 GM powder TP SCH ×3 (08:25→21:29)
[2021-09-12] MEDS: dexmedetomidine/D5W 100mL 100 ML IV SCH ×4 (08:53→20:15)
[2021-09-12] MEDS: midazolam 100mg in NS 100ml 100 ML IV PRN ×2 (11:38→21:29)
[2021-09-12] MEDS: insulin glargine (Lantus) pen - multi-dose SQ SCH (20:13)
[2021-09-13] VITALS (29 sets, daily range): BP systolic 123–151; BP diastolic 71–87
[2021-09-13] MEDS: metroNIDAZOLE-Flagyl 500mg/NS 100 ML IV SCH ×3 (00:35→16:11)
[2021-09-13] MEDS: dexmedetomidine/D5W 100mL 100 ML IV SCH ×4 (00:36→21:00)
[2021-09-13] MEDS: SODIUM CHLORIDE IV SCH ×4 (01:00→10:44)
[2021-09-13] MEDS: HYDROMORPHONE IV SCH ×4 (01:00→10:44)
[2021-09-13] MEDS: mineral oil/petrolatum ophthal oint EACHEYE SCH ×4 (02:00→20:52)
[2021-09-13] MEDS: insulin regular, human U-100 3ml vial - multi-dose SQ SCH ×2 (03:10→14:28)
[2021-09-13 03:17] LABS: D-DIMER 4.45 MG/L FEU (0-0.50)
[2021-09-13] MEDS: WATER IV SCH ×3 (04:00→20:53)
[2021-09-13] MEDS: TRIMETHOPRIM IV SCH ×3 (04:00→20:53)
[2021-09-13] MEDS: DEXTROSE IV SCH ×3 (04:00→20:53)
[2021-09-13] MEDS: [UNRECOGNIZED DRUG - OTHER] IV SCH ×3 (04:00→20:53)
[2021-09-13 08:07] LABS: ALBUMIN 1.8 G/DL (3.4-5.0); ANION GAP 0 (8-16); BLOOD UREA NITROGEN 9 MG/DL (7-18); CALCIUM 7.7 MG/DL (8.5-10.1); CHLORIDE 98 MMOL/L (99-107); GLUCOSE 193 MG/DL (70-104); POTASSIUM 4.9 MMOL/L (3.5-5.1); SODIUM 135 MMOL/L (135-145); TOTAL CARBON DIOXIDE 36.9 MMOL/L (24-32)
[2021-09-13 08:11] LABS: eGFR 0 ML/MIN
[2021-09-13] MEDS: NS IV SCH ×2 (08:44→20:54)
[2021-09-13] MEDS: MINOCYCLINE HCL IV SCH ×2 (08:44→20:54)
[2021-09-13] MEDS: lactobacillus rhamnosus 10,000 MMU CELLS/CAPSULE OGT SCH ×2 (08:45→20:52)
[2021-09-13] MEDS: nystatin 15 GM powder TP SCH ×3 (08:45→20:52)
[2021-09-13] MEDS: pantoprazole 40MG/NS 100ML BAG 100 ML IV SCH ×2 (08:45→20:52)
[2021-09-13] MEDS: enoxaparin 40mg/0.4ml syringe SQ SCH ×2 (08:45→20:52)
[2021-09-13] MEDS: docusate sodium 100mg/10ml UD cup OGT SCH ×2 (08:53→20:52)
[2021-09-13] MEDS: CADD PCA waste documentation MC PRN (10:17)
[2021-09-13] MEDS ORDERED: SODIUM CHLORIDE IV SCH (10:42)
[2021-09-13] MEDS ORDERED: HYDROMORPHONE IV SCH (10:42)
[2021-09-13 10:43] LABS: BASOPHILS # (AUTO) 0.1 X10'3 (0-0.2); BASOPHILS % (AUTO) 0.8 % (0-1); EOSINOPHILS # (AUTO) 0.8 X10'3 (0-0.9); EOSINOPHILS % (AUTO) 5.3 % (0-6); HEMATOCRIT 25.1 % (42.0-52.0); HEMOGLOBIN 7.8 g/dl (14.0-17.9); LYMPHOCYTES % (AUTO) 6.3 % (21-51); MEAN CORPUSCULAR HEMOGLOBIN 27.7 PG (27.0-31.0); MEAN CORPUSCULAR HGB CONC 31.2 g/dL (33.0-36.5); MEAN CORPUSCULAR VOLUME 88.8 FL (78-98); MEAN PLATELET VOLUME 9.1 FL (7.4-10.4); MONOCYTES # (AUTO) 1.2 X10'3 (0-0.9); MONOCYTES % (AUTO) 8.1 % (2-12); NEUTROPHILS # (AUTO) 12.2 X10'3 (1.8-7.7); NEUTROPHILS % (AUTO) 79.5 % (42-75); PLATELET COUNT 326 X10'3 (140-440); RED BLOOD COUNT 2.82 X10'6 (4.70-6.10); WHITE BLOOD COUNT 15.4 X10'3 (4.5-11.0)
[2021-09-13 11:33] LABS: ANISOCYTOSIS 3+; PLATELET ESTIMATE NORMAL; TOTAL CELLS COUNTED 100
[2021-09-13 11:34] LABS: POLYCHROMASIA 1+; STOMATOCYTES FEW; TEAR DROP CELLS FEW
--- NOTE | 2021-09-13 11:35 | NUR ---
Reassessment: Pt remains intubated and tolerating TF at goal rate with GRV WNL. LBM 09/14 per I&O though no documentation of stool output. Pt continues receiving routine bowel care BID with additional PRN bowel care available. No changes to nutrition recommendations at this time. Will continue to follow. Recommendations: 1) Continuous TF using Vital AF with goal rate of 85 mL/hr to provide 2040 mL total volume/day, 2448 kcal, 153 g protein, and 1654 mL water 2) No water flush at this time per MD; monitor serum Na 3) Prealbumin q Thursday/ 4) Daily scaled weights 5) Routine bowel care 6) DM education once stable following extubation and official DM dx by physician; A1c 10.1% with no PMH DM in EMR Addendum: 09/13/21 at [address] Amended: Links added.
--- NOTE | 2021-09-13 12:52 | NUR ---
Pt. tiffany @1245. Saturation @90.
[2021-09-13] MEDS: midazolam 100mg in NS 100ml 100 ML IV PRN (14:29)
[2021-09-13] MEDS: insulin glargine (Lantus) pen - multi-dose SQ SCH (21:00)
[2021-09-14] VITALS (34 sets, daily range): BP systolic 100–148; BP diastolic 49–97
[2021-09-14] MEDS: dexmedetomidine/D5W 100mL 100 ML IV SCH ×6 (01:23→23:15)
[2021-09-14] MEDS: mineral oil/petrolatum ophthal oint EACHEYE SCH ×4 (02:00→20:00)
[2021-09-14 03:55] LABS: D-DIMER 3.83 MG/L FEU (0-0.50); LACTATE DEHYDROGENASE 267 U/L (85-227)
[2021-09-14] MEDS: WATER IV SCH ×3 (04:00→20:00)
[2021-09-14] MEDS: DEXTROSE IV SCH ×3 (04:00→20:00)
[2021-09-14] MEDS: [UNRECOGNIZED DRUG - OTHER] IV SCH ×3 (04:00→20:00)
[2021-09-14] MEDS: TRIMETHOPRIM IV SCH ×3 (04:00→20:00)
[2021-09-14 04:08] LABS: ABG BASE EXCESS 11.4 mmol/L (-2.0-2.0); ABG HCO3 37.1 mmol/L (22.0-26.0); ABG OXYGEN SATURATION 94.4 % (94-97); ABG PO2 (T) 69.1 mmHg (75.0-100.0); ALLEN'S TEST POSITIVE; FCOHb 0.9 % (0.0-3.9); FMetHb 0.3 % (0.0-1.5); FO2Hb 93.3 % (94-97); PATIENT TEMPERATURE 35.9; PEEP 12 cm H2O; RESPIRATORY RATE 30 b/min; TOTAL HEMOGLOBIN 9.2 G/dl (14.0-18.0)
[2021-09-14 04:49] LABS: ALBUMIN 1.8 G/DL (3.4-5.0); ANION GAP 3 (8-16); BASOPHILS # (AUTO) 0.1 X10'3 (0-0.2); BASOPHILS % (AUTO) 0.6 % (0-1); BLOOD UREA NITROGEN 7 MG/DL (7-18); BUN/CREATININE RATIO 36.8 (5.4-32.0); CALCIUM 8.2 MG/DL (8.5-10.1); CHLORIDE 95 MMOL/L (99-107); CREATININE 0.19 MG/DL (0.60-1.10); EOSINOPHILS # (AUTO) 0.6 X10'3 (0-0.9); EOSINOPHILS % (AUTO) 3.8 % (0-6); GLUCOSE 192 MG/DL (70-104); HEMATOCRIT 26.5 % (42.0-52.0); HEMOGLOBIN 8.3 g/dl (14.0-17.9); LYMPHOCYTES # (AUTO) 0.8 X10'3 (1.1-4.8); LYMPHOCYTES % (AUTO) 5.4 % (21-51); MEAN CORPUSCULAR HEMOGLOBIN 27.5 PG (27.0-31.0); MEAN CORPUSCULAR HGB CONC 31.1 g/dL (33.0-36.5); MEAN CORPUSCULAR VOLUME 88.5 FL (78-98); MEAN PLATELET VOLUME 8.9 FL (7.4-10.4); MONOCYTES # (AUTO) 0.9 X10'3 (0-0.9); MONOCYTES % (AUTO) 5.9 % (2-12); NEUTROPHILS % (AUTO) 84.3 % (42-75); PLATELET COUNT 367 X10'3 (140-440); POTASSIUM 5.1 MMOL/L (3.5-5.1); RED CELL DISTRIBUTION WIDTH 22.3 % (11.5-14.5); SODIUM 135 MMOL/L (135-145); TOTAL CARBON DIOXIDE 37.5 MMOL/L (24-32); WHITE BLOOD COUNT 15.5 X10'3 (4.5-11.0); eGFR > 90 ML/MIN
[2021-09-14 05:11] LABS: ANISOCYTOSIS 3+; PLATELET ESTIMATE NORMAL; TOTAL CELLS COUNTED 100
[2021-09-14 05:12] LABS: LARGE PLATELETS FEW; POLYCHROMASIA FEW; STOMATOCYTES FEW
[2021-09-14 05:13] LABS: TEAR DROP CELLS FEW
[2021-09-14] MEDS: midazolam 100mg in NS 100ml 100 ML IV PRN ×2 (05:33→23:15)
[2021-09-14] MEDS: pantoprazole 40MG/NS 100ML BAG 100 ML IV SCH ×2 (07:45→20:00)
[2021-09-14] MEDS: NS IV SCH ×2 (07:45→20:00)
[2021-09-14] MEDS: MINOCYCLINE HCL IV SCH ×2 (07:45→20:00)
[2021-09-14] MEDS: docusate sodium 100mg/10ml UD cup OGT SCH ×2 (07:46→20:00)
[2021-09-14] MEDS: enoxaparin 40mg/0.4ml syringe SQ SCH ×2 (07:46→20:00)
[2021-09-14] MEDS: lactobacillus rhamnosus 10,000 MMU CELLS/CAPSULE OGT SCH ×2 (07:46→20:00)
[2021-09-14] MEDS: metroNIDAZOLE-Flagyl 500mg/NS 100 ML IV SCH ×3 (07:46→15:56)
[2021-09-14] MEDS: nystatin 15 GM powder TP SCH ×3 (08:00→21:00)
[2021-09-14] MEDS: insulin regular, human U-100 3ml vial - multi-dose SQ SCH ×2 (10:43→15:52)
--- NOTE | 2021-09-14 13:10 | NUR ---
Patient supined at 1245, tolerating well.
[2021-09-14] MEDS ORDERED: CADD PCA waste documentation MC SCH (14:10)
[2021-09-14] MEDS: ALPRAZolam 0.5mg tablet PO SCH (15:54)
[2021-09-14] MEDS: QUEtiapine 25mg tablet PO SCH (15:54)
[2021-09-14] MEDS: oxyCODONE SR 40mg (sust release) tab PO SCH (17:21)
[2021-09-14] MEDS: insulin glargine (Lantus) pen - multi-dose SQ SCH (21:00)
[2021-09-15] VITALS (31 sets, daily range): BP systolic 84–139; BP diastolic 41–92
[2021-09-15] MEDS: mineral oil/petrolatum ophthal oint EACHEYE SCH ×4 (02:00→19:34)
[2021-09-15 03:50] LABS: ABG BASE EXCESS 13.8 mmol/L (-2.0-2.0); ABG HCO3 40.4 mmol/L (22.0-26.0); ABG OXYGEN SATURATION 96.2 % (94-97); ABG PCO2 (T) 65.1 mmHg (35.0-48.0); ABG PO2 (T) 86.6 mmHg (75.0-100.0); ALLEN'S TEST POSITIVE; FCOHb 0.5 % (0.0-3.9); FMetHb 0.5 % (0.0-1.5); FO2Hb 95.2 % (94-97); PATIENT TEMPERATURE 36.5; PEEP 12 cm H2O; RESPIRATORY RATE 30 b/min
[2021-09-15] MEDS: WATER IV SCH ×3 (03:56→19:34)
[2021-09-15] MEDS: TRIMETHOPRIM IV SCH ×3 (03:56→19:34)
[2021-09-15] MEDS: DEXTROSE IV SCH ×3 (03:56→19:34)
[2021-09-15] MEDS: [UNRECOGNIZED DRUG - OTHER] IV SCH ×3 (03:56→19:34)
[2021-09-15] MEDS: oxyCODONE SR 40mg (sust release) tab PO SCH ×2 (03:57→17:00)
[2021-09-15 04:14] LABS: D-DIMER 2.33 MG/L FEU (0-0.50)
[2021-09-15] MEDS: docusate sodium 100mg/10ml UD cup OGT SCH ×2 (08:07→18:39)
[2021-09-15] MEDS: lactobacillus rhamnosus 10,000 MMU CELLS/CAPSULE OGT SCH ×2 (08:07→20:29)
[2021-09-15] MEDS: enoxaparin 40mg/0.4ml syringe SQ SCH ×2 (08:07→20:38)
[2021-09-15] MEDS: metroNIDAZOLE-Flagyl 500mg/NS 100 ML IV SCH ×3 (08:08→16:09)
[2021-09-15] MEDS: ALPRAZolam 0.5mg tablet PO SCH ×3 (08:08→16:09)
[2021-09-15] MEDS: QUEtiapine 25mg tablet PO SCH ×3 (08:08→16:09)
[2021-09-15] MEDS: pantoprazole 40MG/NS 100ML BAG 100 ML IV SCH ×2 (08:08→20:29)
[2021-09-15] MEDS: nystatin 15 GM powder TP SCH ×3 (08:08→20:38)
[2021-09-15] MEDS: NS IV SCH ×2 (08:08→20:38)
[2021-09-15] MEDS: MINOCYCLINE HCL IV SCH ×2 (08:08→20:38)
[2021-09-15] MEDS: insulin regular, human U-100 3ml vial - multi-dose SQ SCH ×3 (08:11→21:39)
[2021-09-15] MEDS: midazolam 100mg in NS 100ml 100 ML IV PRN ×2 (09:18→21:40)
[2021-09-15] MEDS: SODIUM CHLORIDE IV SCH (10:06)
[2021-09-15] MEDS: HYDROMORPHONE IV SCH (10:06)
[2021-09-15] MEDS: acetaminophen 325mg/10.15ml oral unit dose solution OGT PRN (12:48)
[2021-09-15 17:00] LABS: BASOPHILS # (AUTO) 0.1 X10'3 (0-0.2); BASOPHILS % (AUTO) 0.6 % (0-1); EOSINOPHILS # (AUTO) 0.2 X10'3 (0-0.9); EOSINOPHILS % (AUTO) 1.9 % (0-6); HEMATOCRIT 23.9 % (42.0-52.0); HEMOGLOBIN 7.9 g/dl (14.0-17.9); LYMPHOCYTES # (AUTO) 0.7 X10'3 (1.1-4.8); LYMPHOCYTES % (AUTO) 6.4 % (21-51); MEAN CORPUSCULAR HEMOGLOBIN 28.5 PG (27.0-31.0); MEAN CORPUSCULAR VOLUME 86.5 FL (78-98); MEAN PLATELET VOLUME 8.1 FL (7.4-10.4); MONOCYTES # (AUTO) 0.7 X10'3 (0-0.9); NEUTROPHILS % (AUTO) 84.1 % (42-75); PLATELET COUNT 355 X10'3 (140-440); RED BLOOD COUNT 2.77 X10'6 (4.70-6.10); RED CELL DISTRIBUTION WIDTH 21.8 % (11.5-14.5); WHITE BLOOD COUNT 10.7 X10'3 (4.5-11.0)
[2021-09-15 17:28] LABS: HYPOCHROMASIA 1+; PLATELET ESTIMATE NORMAL; POLYCHROMASIA 2+
[2021-09-15 17:31] LABS: ANISOCYTOSIS 3+; SCHISTOCYTES FEW; STOMATOCYTES FEW; TARGET CELLS FEW; TEAR DROP CELLS 1+
[2021-09-15 17:44] LABS: ALANINE AMINOTRANSFERASE 40 U/L (12-78); ALBUMIN 1.6 G/DL (3.4-5.0); ALBUMIN/GLOBULIN RATIO 0.5 (1.1-1.5); ALKALINE PHOSPHATASE 163 IU/L (46-116); ANION GAP -1 (8-16); ASPARTATE AMINO TRANSFERASE 17 U/L (10-37); BILIRUBIN,TOTAL 0.1 MG/DL (0.1-1.0); BLOOD UREA NITROGEN 4 MG/DL (7-18); CALCIUM 7.7 MG/DL (8.5-10.1); CHLORIDE 100 MMOL/L (99-107); CREATININE 0.16 MG/DL (0.60-1.10); GLUCOSE 183 MG/DL (70-104); POTASSIUM 4.8 MMOL/L (3.5-5.1); SODIUM 138 MMOL/L (135-145); TOTAL CARBON DIOXIDE 38.6 MMOL/L (24-32); TOTAL PROTEIN 4.8 G/DL (6.4-8.2); eGFR > 90 ML/MIN
[2021-09-15] MEDS: scopolamine 1mg/72 hr patch TD SCH (18:01)
--- NOTE | 2021-09-15 18:20 | NUR ---
Patient in room CICU 2008. I have received report from ANDRÉS Sanford and had the opportunity to ask questions and assume patient care.
[2021-09-15] MEDS: oxyCODONE IR 5mg (immed. release) tablet OGT SCH ×2 (20:37→23:34)
--- NOTE | 2021-09-15 21:00 | NUR ---
Dr. Singer at bedside to place sutures in Chest tube sites. Occlusive dressings still intact. Assisted DrNicanor with suture placement to right and left chest tube sites. Occlusive xeroform dressing, gauze and secured with foam tape by Dr. Singer. During procedure patient administered total of 3 mg Versed bolus with increased rate to 6 mg/hr. Patient tolerate procedure well. Per Dr. Singer give Lantus tonight starting at 1/2 the last previous dose.
[2021-09-15] MEDS: dexmedetomidine/D5W 100mL 100 ML IV SCH (21:37)
[2021-09-15] MEDS: insulin glargine (Lantus) pen - multi-dose SQ SCH (21:39)
[2021-09-16] VITALS (36 sets, daily range): BP systolic 100–134; BP diastolic 54–81
[2021-09-16] MEDS: ALPRAZolam 0.5mg tablet PO SCH ×3 (00:36→16:08)
[2021-09-16] MEDS: metroNIDAZOLE-Flagyl 500mg/NS 100 ML IV SCH ×3 (00:36→16:33)
[2021-09-16] MEDS: QUEtiapine 25mg tablet OGT SCH ×3 (00:36→16:08)
[2021-09-16] MEDS: dexmedetomidine/D5W 100mL 100 ML IV SCH ×7 (00:58→21:27)
--- NOTE | 2021-09-16 01:10 | NUR ---
Patient noted to be moving bilateral feet and hands with stimulation. Patient is very weak. Patient attempting to open his eyes during patient care activities. Patient responsive to pain. At this time he is not following commands.
[2021-09-16] MEDS: mineral oil/petrolatum ophthal oint EACHEYE SCH ×4 (01:56→19:36)
[2021-09-16 02:33] LABS: BASOPHILS # (AUTO) 0.1 X10'3 (0-0.2); EOSINOPHILS # (AUTO) 0.2 X10'3 (0-0.9); EOSINOPHILS % (AUTO) 2.3 % (0-6); HEMATOCRIT 22.5 % (42.0-52.0); HEMOGLOBIN 7.1 g/dl (14.0-17.9); LYMPHOCYTES # (AUTO) 0.8 X10'3 (1.1-4.8); LYMPHOCYTES % (AUTO) 10.7 % (21-51); MEAN CORPUSCULAR HEMOGLOBIN 27.6 PG (27.0-31.0); MEAN CORPUSCULAR HGB CONC 31.4 g/dL (33.0-36.5); MEAN CORPUSCULAR VOLUME 87.9 FL (78-98); MONOCYTES # (AUTO) 0.9 X10'3 (0-0.9); MONOCYTES % (AUTO) 11.2 % (2-12); NEUTROPHILS # (AUTO) 5.8 X10'3 (1.8-7.7); NEUTROPHILS % (AUTO) 74.8 % (42-75); PLATELET COUNT 326 X10'3 (140-440); RED BLOOD COUNT 2.56 X10'6 (4.70-6.10); RED CELL DISTRIBUTION WIDTH 21.5 % (11.5-14.5); WHITE BLOOD COUNT 7.7 X10'3 (4.5-11.0)
[2021-09-16 02:49] LABS: D-DIMER 2.34 MG/L FEU (0-0.50)
[2021-09-16] MEDS: insulin regular, human U-100 3ml vial - multi-dose SQ SCH ×4 (02:51→21:23)
[2021-09-16] MEDS: oxyCODONE IR 5mg (immed. release) tablet OGT SCH ×2 (02:55→06:41)
[2021-09-16 03:13] LABS: ALANINE AMINOTRANSFERASE 35 U/L (12-78); ALBUMIN 1.5 G/DL (3.4-5.0); ALBUMIN/GLOBULIN RATIO 0.5 (1.1-1.5); ALKALINE PHOSPHATASE 143 IU/L (46-116); ANION GAP 1 (8-16); ASPARTATE AMINO TRANSFERASE 14 U/L (10-37); BILIRUBIN,TOTAL 0.1 MG/DL (0.1-1.0); BLOOD UREA NITROGEN 4 MG/DL (7-18); BUN/CREATININE RATIO 21.1 (5.4-32.0); CALCIUM 7.7 MG/DL (8.5-10.1); CHLORIDE 99 MMOL/L (99-107); CREATININE 0.19 MG/DL (0.60-1.10); GLUCOSE 222 MG/DL (70-104); LACTATE DEHYDROGENASE 200 U/L (85-227); MAGNESIUM 1.7 MG/DL (1.5-2.4); POTASSIUM 4.1 MMOL/L (3.5-5.1); PREALBUMIN 15.2 MG/DL (19-36); SODIUM 136 MMOL/L (135-145); TOTAL PROTEIN 4.3 G/DL (6.4-8.2); TRIGLYCERIDES 57 MG/DL (20-135); eGFR > 90 ML/MIN
[2021-09-16 03:35] LABS: TOTAL HEMOGLOBIN 6.8 G/dl (14.0-18.0)
[2021-09-16] MEDS: WATER IV SCH ×3 (03:59→19:35)
[2021-09-16] MEDS: [UNRECOGNIZED DRUG - OTHER] IV SCH ×3 (03:59→19:35)
[2021-09-16] MEDS: TRIMETHOPRIM IV SCH ×3 (03:59→19:35)
[2021-09-16] MEDS: DEXTROSE IV SCH ×3 (03:59→19:35)
[2021-09-16] MEDS: CADD PCA waste documentation MC PRN (04:24)
--- NOTE | 2021-09-16 06:23 | NUR ---
Problems reprioritized. Patient report given, questions answered & plan of care reviewed with ANDRÉS Cazares.
[2021-09-16] MEDS: docusate sodium 100mg/10ml UD cup OGT SCH (08:28)
[2021-09-16] MEDS: pantoprazole 40MG/NS 100ML BAG 100 ML IV SCH ×2 (08:29→19:37)
[2021-09-16] MEDS: enoxaparin 40mg/0.4ml syringe SQ SCH ×2 (08:29→19:36)
[2021-09-16] MEDS: lactobacillus rhamnosus 10,000 MMU CELLS/CAPSULE OGT SCH ×2 (08:29→19:35)
[2021-09-16] MEDS: nystatin 15 GM powder TP SCH ×3 (08:30→21:17)
[2021-09-16] MEDS: NS IV SCH ×2 (09:54→19:37)
[2021-09-16] MEDS: MINOCYCLINE HCL IV SCH ×2 (09:54→19:37)
[2021-09-16] MEDS: OXYcodone 10 MG/0.5 ML ORAL syringe OGT SCH ×5 (09:56→21:16)
[2021-09-16] MEDS: midazolam 100mg in NS 100ml 100 ML IV PRN (10:28)
--- NOTE | 2021-09-16 10:54 | NUR ---
WOUND RN here to assess and re-dress wounds.
--- NOTE | 2021-09-16 12:49 | NUR ---
Brother visiting patient.
[2021-09-16] MEDS ORDERED: magnesium 2GM in 50ml NS 50 ML IV ONE (14:00)
--- NOTE | 2021-09-16 15:26 | NUR ---
Rectal tube dc'd per Dr. Singer. Rectal bag placed.
--- NOTE | 2021-09-16 15:37 | NUR ---
Rectal tube dc'd and rectal bag placed per Dr. Singer. Pt. supined. Sedation vacation initiated at [address] Singer.
[2021-09-16] MEDS ORDERED: furosemide 20 MG/2 ML vial IV STA (15:48)
--- NOTE | 2021-09-16 17:34 | NUR ---
Pt. followed commands and responded appropriately during sedation vacation. Dr. Singer at bedside to witness responses. Blood transfusion completed. Fi02 80%, peep 10 on vent. VSS.
--- NOTE | 2021-09-16 18:20 | NUR ---
Patient in room CICU 2008. I have received report from ANDRÉS Cazares and had the opportunity to ask questions and assume patient care.
--- NOTE | 2021-09-16 18:20 | NUR ---
Problems reprioritized. Patient report given, questions answered & plan of care reviewed with Trinidad BOWEN.
[2021-09-16] MEDS: furosemide 20 MG/2 ML vial IV SCH (21:21)
[2021-09-16] MEDS: insulin glargine (Lantus) pen - multi-dose SQ SCH (21:24)
[2021-09-17] VITALS (31 sets, daily range): BP systolic 84–131; BP diastolic 44–84
[2021-09-17] MEDS: ALPRAZolam 0.5mg tablet PO SCH ×3 (00:19→15:53)
[2021-09-17] MEDS: QUEtiapine 25mg tablet OGT SCH ×3 (00:19→15:53)
[2021-09-17] MEDS: OXYcodone 10 MG/0.5 ML ORAL syringe OGT SCH ×8 (00:19→20:29)
[2021-09-17] MEDS: dexmedetomidine/D5W 100mL 100 ML IV SCH ×7 (00:20→20:32)
[2021-09-17 02:14] LABS: ABG BASE EXCESS 12.7 mmol/L (-2.0-2.0); ABG HCO3 38.6 mmol/L (22.0-26.0); ABG OXYGEN SATURATION 94.7 % (94-97); ABG PCO2 (T) 58.3 mmHg (35.0-48.0); ABG PO2 (T) 79.9 mmHg (75.0-100.0); ALLEN'S TEST POSITIVE; FCOHb 0.8 % (0.0-3.9); FMetHb 0.5 % (0.0-1.5); FO2Hb 93.5 % (94-97); PATIENT TEMPERATURE 36.9; PEEP 10 cm H2O; RESPIRATORY RATE 30 b/min; TOTAL HEMOGLOBIN 9.2 G/dl (14.0-18.0)
[2021-09-17] MEDS: mineral oil/petrolatum ophthal oint EACHEYE SCH ×4 (02:43→20:29)
[2021-09-17 03:06] LABS: BASOPHILS # (AUTO) 0.1 X10'3 (0-0.2); BASOPHILS % (AUTO) 0.9 % (0-1); EOSINOPHILS # (AUTO) 0.5 X10'3 (0-0.9); EOSINOPHILS % (AUTO) 5.9 % (0-6); HEMOGLOBIN 8.5 g/dl (14.0-17.9); LYMPHOCYTES # (AUTO) 0.8 X10'3 (1.1-4.8); LYMPHOCYTES % (AUTO) 9.3 % (21-51); MEAN CORPUSCULAR HEMOGLOBIN 28.1 PG (27.0-31.0); MEAN CORPUSCULAR HGB CONC 32.5 g/dL (33.0-36.5); MEAN CORPUSCULAR VOLUME 86.5 FL (78-98); MONOCYTES # (AUTO) 0.8 X10'3 (0-0.9); MONOCYTES % (AUTO) 8.9 % (2-12); NEUTROPHILS # (AUTO) 6.6 X10'3 (1.8-7.7); PLATELET COUNT 355 X10'3 (140-440); RED BLOOD COUNT 3.01 X10'6 (4.70-6.10); RED CELL DISTRIBUTION WIDTH 21.2 % (11.5-14.5); WHITE BLOOD COUNT 8.9 X10'3 (4.5-11.0)
[2021-09-17 03:17] LABS: D-DIMER 2.54 MG/L FEU (0-0.50)
[2021-09-17] MEDS: midazolam 100mg in NS 100ml 100 ML IV PRN ×3 (03:36→20:32)
[2021-09-17 03:48] LABS: ALANINE AMINOTRANSFERASE 32 U/L (12-78); ALBUMIN 1.7 G/DL (3.4-5.0); ALBUMIN/GLOBULIN RATIO 0.5 (1.1-1.5); ALKALINE PHOSPHATASE 137 IU/L (46-116); ANION GAP 3 (8-16); ASPARTATE AMINO TRANSFERASE 14 U/L (10-37); BILIRUBIN,TOTAL 0.2 MG/DL (0.1-1.0); BLOOD UREA NITROGEN 7 MG/DL (7-18); BUN/CREATININE RATIO 46.7 (5.4-32.0); CALCIUM 8.2 MG/DL (8.5-10.1); CHLORIDE 99 MMOL/L (99-107); CREATININE 0.15 MG/DL (0.60-1.10); GLUCOSE 91 MG/DL (70-104); LACTATE DEHYDROGENASE 212 U/L (85-227); SODIUM 138 MMOL/L (135-145); TOTAL CARBON DIOXIDE 36.4 MMOL/L (24-32); TOTAL PROTEIN 4.9 G/DL (6.4-8.2); eGFR > 90 ML/MIN
--- NOTE | 2021-09-17 03:54 | NUR ---
Due to emergencies with other patients, respiratory therapy was not able to assist with proning patient. Patient remained in supine position. Oxygen saturation in 91-94%. Pillows in place to off load pressure, patient repositioned every two hours. Addendum: 09/17/21 at 0432 by Didi Smyth RN 0415 patient placed in prone position
--- NOTE | 2021-09-17 04:15 | NUR ---
Patient in PRONE position with the assistance of RT
[2021-09-17] MEDS: DEXTROSE IV SCH ×3 (04:30→20:28)
[2021-09-17] MEDS: TRIMETHOPRIM IV SCH ×3 (04:30→20:28)
[2021-09-17] MEDS: WATER IV SCH ×3 (04:30→20:28)
[2021-09-17] MEDS: [UNRECOGNIZED DRUG - OTHER] IV SCH ×3 (04:30→20:28)
--- NOTE | 2021-09-17 06:20 | NUR ---
Problems reprioritized. Patient report given, questions answered & plan of care reviewed with ANDRÉS Cazares.
[2021-09-17] MEDS: insulin regular, human U-100 3ml vial - multi-dose SQ SCH ×3 (07:33→21:45)
[2021-09-17] MEDS: docusate sodium 100mg/10ml UD cup OGT SCH (07:41)
[2021-09-17] MEDS: lactobacillus rhamnosus 10,000 MMU CELLS/CAPSULE OGT SCH ×2 (07:42→20:30)
[2021-09-17] MEDS: furosemide 20 MG/2 ML vial IV SCH ×2 (07:42→17:36)
[2021-09-17] MEDS: pantoprazole 40MG/NS 100ML BAG 100 ML IV SCH ×2 (07:42→20:31)
[2021-09-17] MEDS: enoxaparin 40mg/0.4ml syringe SQ SCH ×2 (07:43→20:30)
[2021-09-17] MEDS: nystatin 15 GM powder TP SCH ×3 (08:48→20:26)
[2021-09-17] MEDS: NS IV SCH ×2 (08:58→20:31)
[2021-09-17] MEDS: MINOCYCLINE HCL IV SCH ×2 (08:58→20:31)
--- NOTE | 2021-09-17 09:20 | NUR ---
Supined pt. at 0900. SP02 was 84% while prone. Sp02 increased to 96% when supined. Dr. Boyer aware that pt's sats are better while supined.
--- NOTE | 2021-09-17 12:47 | NUR ---
Dr. Britton here to see pt.
--- NOTE | 2021-09-17 14:33 | NUR ---
Reassessment: Pt remains intubated and tolerating TF at goal rate with GRV WNL. LBM 09/16 documented with 50 mL stool output however with 1050 mL stool output 09/15 per I&O. Pt continues receiving routine bowel care BID with additional PRN bowel care available. No changes to nutrition recommendations at this time. Will continue to follow. Recommendations: 1) Continuous TF using Vital AF with goal rate of 85 mL/hr to provide 2040 mL total volume/day, 2448 kcal, 153 g protein, and 1654 mL water 2) No water flush at this time per MD; monitor serum Na 3) Prealbumin q Thursday/ 4) Daily scaled weights 5) Routine bowel care 6) DM education once stable following extubation and official DM dx by physician; A1c 10.1% with no PMH DM in EMR Addendum: 09/17/21 at [address] Amended: Links added.
[2021-09-17] MEDS ORDERED: albumin (human) 25% 100 ML IV solution IV ONE (17:00)
--- NOTE | 2021-09-17 17:05 | NUR ---
BP 81/41 (53). Dr. Boyer notified. Order for Albumin received.
--- NOTE | 2021-09-17 17:45 | NUR ---
Dr. Boyer stated to hold 2000 LASIX dose. Med held on eMar.
[2021-09-17] MEDS: insulin glargine (Lantus) pen - multi-dose SQ SCH (21:44)
[2021-09-18] VITALS (35 sets, daily range): BP systolic 84–137; BP diastolic 42–75
[2021-09-18] MEDS: ALPRAZolam 0.5mg tablet PO SCH ×4 (00:05→23:47)
[2021-09-18] MEDS: QUEtiapine 25mg tablet OGT SCH ×4 (00:05→23:47)
[2021-09-18] MEDS: dexmedetomidine/D5W 100mL 100 ML IV SCH ×10 (00:05→23:48)
[2021-09-18] MEDS: OXYcodone 10 MG/0.5 ML ORAL syringe OGT SCH ×9 (00:06→23:47)
[2021-09-18] MEDS: mineral oil/petrolatum ophthal oint EACHEYE SCH ×4 (01:11→20:31)
[2021-09-18] MEDS: midazolam 100mg in NS 100ml 100 ML IV PRN ×5 (02:59→20:36)
[2021-09-18] MEDS: dextrose 50%-water 50ml dispensing syringe IV PRN (03:13)
[2021-09-18] MEDS: WATER IV SCH ×3 (04:02→20:32)
[2021-09-18] MEDS: [UNRECOGNIZED DRUG - OTHER] IV SCH ×3 (04:02→20:32)
[2021-09-18] MEDS: DEXTROSE IV SCH ×3 (04:02→20:32)
[2021-09-18] MEDS: TRIMETHOPRIM IV SCH ×3 (04:02→20:32)
[2021-09-18 04:03] LABS: BASOPHILS # (AUTO) 0.1 X10'3 (0-0.2); BASOPHILS % (AUTO) 0.9 % (0-1); EOSINOPHILS # (AUTO) 0.6 X10'3 (0-0.9); EOSINOPHILS % (AUTO) 8.6 % (0-6); HEMATOCRIT 23.5 % (42.0-52.0); HEMOGLOBIN 7.4 g/dl (14.0-17.9); LYMPHOCYTES # (AUTO) 0.8 X10'3 (1.1-4.8); LYMPHOCYTES % (AUTO) 11.9 % (21-51); MEAN CORPUSCULAR HEMOGLOBIN 27.6 PG (27.0-31.0); MEAN CORPUSCULAR HGB CONC 31.7 g/dL (33.0-36.5); MEAN CORPUSCULAR VOLUME 87.2 FL (78-98); MEAN PLATELET VOLUME 7.9 FL (7.4-10.4); MONOCYTES # (AUTO) 0.7 X10'3 (0-0.9); MONOCYTES % (AUTO) 9.7 % (2-12); NEUTROPHILS # (AUTO) 4.7 X10'3 (1.8-7.7); NEUTROPHILS % (AUTO) 68.9 % (42-75); PLATELET COUNT 292 X10'3 (140-440); RED CELL DISTRIBUTION WIDTH 19.9 % (11.5-14.5); WHITE BLOOD COUNT 6.8 X10'3 (4.5-11.0)
[2021-09-18 04:31] LABS: ABG BASE EXCESS 6.5 mmol/L (-2.0-2.0); ABG HCO3 32.1 mmol/L (22.0-26.0); ABG OXYGEN SATURATION 94.3 % (94-97); ABG PCO2 (T) 53.2 mmHg (35.0-48.0); ABG PO2 (T) 74.5 mmHg (75.0-100.0); ALLEN'S TEST POSITIVE; FCOHb 1.7 % (0.0-3.9); FMetHb 0.3 % (0.0-1.5); FO2Hb 92.4 % (94-97); PATIENT TEMPERATURE 36.9; PEEP 10 cm H2O; RESPIRATORY RATE 30 b/min; TOTAL HEMOGLOBIN 7.4 G/dl (14.0-18.0)
[2021-09-18 04:32] LABS: ALBUMIN 2.2 G/DL (3.4-5.0); ANION GAP 4 (8-16); BLOOD UREA NITROGEN 7 MG/DL (7-18); BUN/CREATININE RATIO 38.9 (5.4-32.0); CALCIUM 8.6 MG/DL (8.5-10.1); CHLORIDE 98 MMOL/L (99-107); CREATININE 0.18 MG/DL (0.60-1.10); LACTATE DEHYDROGENASE 196 U/L (85-227); PHOSPHORUS 6.2 MG/DL (2.3-4.5); POTASSIUM 4.9 MMOL/L (3.5-5.1); SODIUM 138 MMOL/L (135-145); TOTAL CARBON DIOXIDE 35.7 MMOL/L (24-32); eGFR > 90 ML/MIN
[2021-09-18 04:52] LABS: GLUCOSE 31 MG/DL (70-104)
[2021-09-18 05:18] LABS: ANISOCYTOSIS 2+; HYPOCHROMASIA 2+; PLATELET ESTIMATE NORMAL; POIKILOCYTOSIS 1+; POLYCHROMASIA 1+; STOMATOCYTES FEW; TEAR DROP CELLS FEW
[2021-09-18] MEDS: NS IV SCH ×2 (08:12→20:34)
[2021-09-18] MEDS: MINOCYCLINE HCL IV SCH ×2 (08:12→20:34)
[2021-09-18] MEDS: pantoprazole 40MG/NS 100ML BAG 100 ML IV SCH ×2 (08:12→20:37)
[2021-09-18] MEDS: furosemide 20 MG/2 ML vial IV SCH ×2 (08:14→20:38)
[2021-09-18] MEDS: docusate sodium 100mg/10ml UD cup OGT SCH (08:14)
[2021-09-18] MEDS: lactobacillus rhamnosus 10,000 MMU CELLS/CAPSULE OGT SCH ×2 (08:14→20:38)
[2021-09-18] MEDS: enoxaparin 40mg/0.4ml syringe SQ SCH ×2 (08:15→20:39)
[2021-09-18] MEDS: nystatin 15 GM powder TP SCH ×3 (08:15→20:39)
[2021-09-18] MEDS ORDERED: VANCOMYCIN 1GM/200ML IVPB 200 ML IV SCH (11:00)
[2021-09-18] MEDS ORDERED: predniSONE 5mg tablet PO SCH (12:10)
[2021-09-18] MEDS: sevelamer carbonate 0.8gm powder pkt OGT SCH ×2 (13:06→17:44)
[2021-09-18 16:02] LABS: C-REACTIVE PROTEIN 7.64 MG/DL (0.0-0.5)
[2021-09-18] MEDS: scopolamine 1mg/72 hr patch TD SCH (17:44)
[2021-09-18] MEDS: insulin glargine (Lantus) pen - multi-dose SQ SCH (21:33)
[2021-09-18] MEDS: insulin regular, human U-100 3ml vial - multi-dose SQ SCH (21:34)
[2021-09-19] VITALS (26 sets, daily range): BP systolic 97–146; BP diastolic 52–74
[2021-09-19] MEDS: mineral oil/petrolatum ophthal oint EACHEYE SCH ×4 (02:12→20:35)
[2021-09-19 03:32] LABS: BASOPHILS # (AUTO) 0.1 X10'3 (0-0.2); BASOPHILS % (AUTO) 1.2 % (0-1); EOSINOPHILS # (AUTO) 0.6 X10'3 (0-0.9); EOSINOPHILS % (AUTO) 8.8 % (0-6); HEMATOCRIT 24.3 % (42.0-52.0); HEMOGLOBIN 7.7 g/dl (14.0-17.9); LYMPHOCYTES # (AUTO) 0.8 X10'3 (1.1-4.8); LYMPHOCYTES % (AUTO) 13.5 % (21-51); MEAN CORPUSCULAR HEMOGLOBIN 27.6 PG (27.0-31.0); MEAN CORPUSCULAR HGB CONC 31.6 g/dL (33.0-36.5); MEAN CORPUSCULAR VOLUME 87.4 FL (78-98); MEAN PLATELET VOLUME 8.1 FL (7.4-10.4); MONOCYTES # (AUTO) 0.6 X10'3 (0-0.9); MONOCYTES % (AUTO) 9.6 % (2-12); NEUTROPHILS # (AUTO) 4.2 X10'3 (1.8-7.7); NEUTROPHILS % (AUTO) 66.9 % (42-75); PLATELET COUNT 310 X10'3 (140-440); RED BLOOD COUNT 2.78 X10'6 (4.70-6.10); RED CELL DISTRIBUTION WIDTH 20.4 % (11.5-14.5); WHITE BLOOD COUNT 6.3 X10'3 (4.5-11.0)
[2021-09-19 03:36] LABS: ABG HCO3 34.2 mmol/L (22.0-26.0); ABG OXYGEN SATURATION 95.9 % (94-97); ABG PCO2 (T) 58.6 mmHg (35.0-48.0); ABG PO2 (T) 86.6 mmHg (75.0-100.0); ALLEN'S TEST POSITIVE; FCOHb 1.3 % (0.0-3.9); FO2Hb 94.7 % (94-97); PATIENT TEMPERATURE 36.9; PEEP 10 cm H2O; RESPIRATORY RATE 30 b/min; TOTAL HEMOGLOBIN 8.5 G/dl (14.0-18.0)
[2021-09-19 03:40] LABS: D-DIMER 1.94 MG/L FEU (0-0.50)
[2021-09-19 04:09] LABS: ALBUMIN 2.1 G/DL (3.4-5.0); ANION GAP 2 (8-16); BLOOD UREA NITROGEN 10 MG/DL (7-18); BUN/CREATININE RATIO 45.5 (5.4-32.0); CALCIUM 8.5 MG/DL (8.5-10.1); CHLORIDE 99 MMOL/L (99-107); CREATININE 0.22 MG/DL (0.60-1.10); GLUCOSE 118 MG/DL (70-104); LACTATE DEHYDROGENASE 213 U/L (85-227); MAGNESIUM 1.9 MG/DL (1.5-2.4); PHOSPHORUS 6.7 MG/DL (2.3-4.5); PREALBUMIN 17.1 MG/DL (19-36); SODIUM 137 MMOL/L (135-145); TOTAL CARBON DIOXIDE 36.2 MMOL/L (24-32); eGFR > 90 ML/MIN
[2021-09-19] MEDS: TRIMETHOPRIM IV SCH ×3 (04:25→20:42)
[2021-09-19] MEDS: [UNRECOGNIZED DRUG - OTHER] IV SCH ×3 (04:25→20:42)
[2021-09-19] MEDS: DEXTROSE IV SCH ×3 (04:25→20:42)
[2021-09-19] MEDS: WATER IV SCH ×3 (04:25→20:42)
[2021-09-19] MEDS: dexmedetomidine/D5W 100mL 100 ML IV SCH ×7 (04:34→20:39)
[2021-09-19] MEDS: midazolam 100mg in NS 100ml 100 ML IV PRN ×4 (04:34→20:39)
[2021-09-19] MEDS: OXYcodone 10 MG/0.5 ML ORAL syringe OGT SCH ×7 (04:34→20:36)
[2021-09-19] MEDS: insulin regular, human U-100 3ml vial - multi-dose SQ SCH ×2 (05:35→21:58)
[2021-09-19] MEDS: predniSONE 5mg tablet OGT SCH (08:53)
[2021-09-19] MEDS: pantoprazole 40MG/NS 100ML BAG 100 ML IV SCH ×2 (08:53→20:37)
[2021-09-19] MEDS: furosemide 20 MG/2 ML vial IV SCH ×2 (08:53→20:35)
[2021-09-19] MEDS: NS IV SCH ×2 (08:53→20:41)
[2021-09-19] MEDS: ALPRAZolam 0.5mg tablet PO SCH ×2 (08:53→15:46)
[2021-09-19] MEDS: docusate sodium 100mg/10ml UD cup OGT SCH (08:53)
[2021-09-19] MEDS: MINOCYCLINE HCL IV SCH ×2 (08:53→20:41)
[2021-09-19] MEDS: QUEtiapine 25mg tablet OGT SCH ×2 (08:53→15:46)
[2021-09-19] MEDS: lactobacillus rhamnosus 10,000 MMU CELLS/CAPSULE OGT SCH ×2 (08:53→20:36)
[2021-09-19] MEDS: enoxaparin 40mg/0.4ml syringe SQ SCH ×2 (08:54→20:35)
[2021-09-19] MEDS: nystatin 15 GM powder TP SCH ×3 (08:55→20:42)
[2021-09-19] MEDS: sevelamer carbonate 0.8gm powder pkt OGT SCH ×3 (08:57→17:52)
--- NOTE | 2021-09-19 11:00 | NUR ---
Wound care at bedside changing all wound dressings.
--- NOTE | 2021-09-19 12:14 | NUR ---
Patient turned to prone position tolerating well.
[2021-09-19] MEDS: iron sucrose complex injection 200 MG in normal saline 100ml IV soln 100 ML IV SCH (15:58)
[2021-09-19] MEDS: insulin glargine (Lantus) pen - multi-dose SQ SCH (21:57)
[2021-09-20] VITALS (26 sets, daily range): BP systolic 101–160; BP diastolic 37–97
[2021-09-20] MEDS: QUEtiapine 25mg tablet OGT SCH ×4 (00:46→23:37)
[2021-09-20] MEDS: ALPRAZolam 0.5mg tablet PO SCH ×4 (00:46→23:37)
[2021-09-20] MEDS: OXYcodone 10 MG/0.5 ML ORAL syringe OGT SCH ×9 (00:54→23:37)
[2021-09-20] MEDS: midazolam 100mg in NS 100ml 100 ML IV PRN ×5 (00:54→22:44)
[2021-09-20] MEDS: dexmedetomidine/D5W 100mL 100 ML IV SCH ×10 (00:55→23:36)
[2021-09-20] MEDS: mineral oil/petrolatum ophthal oint EACHEYE SCH ×4 (02:20→19:23)
[2021-09-20 03:33] LABS: ANION GAP 8 (8-16); BLOOD UREA NITROGEN 8 MG/DL (7-18); BUN/CREATININE RATIO 30.8 (5.4-32.0); CALCIUM 8.5 MG/DL (8.5-10.1); CHLORIDE 96 MMOL/L (99-107); CREATININE 0.26 MG/DL (0.60-1.10); GLUCOSE 107 MG/DL (70-104); LACTATE DEHYDROGENASE 195 U/L (85-227); POTASSIUM 4.5 MMOL/L (3.5-5.1); SODIUM 139 MMOL/L (135-145); TOTAL CARBON DIOXIDE 35.3 MMOL/L (24-32); eGFR > 90 ML/MIN
[2021-09-20 03:49] LABS: ABG BASE EXCESS 12.3 mmol/L (-2.0-2.0); ABG OXYGEN SATURATION 93.6 % (94-97); ABG PCO2 (T) 61.7 mmHg (35.0-48.0); ABG PO2 (T) 70.5 mmHg (75.0-100.0); ALLEN'S TEST POSITIVE; FCOHb 0.9 % (0.0-3.9); FO2Hb 92.8 % (94-97); PATIENT TEMPERATURE 36.4; PEEP 10 cm H2O; RESPIRATORY RATE 30 b/min; TOTAL HEMOGLOBIN 9.8 G/dl (14.0-18.0)
[2021-09-20 04:23] LABS: D-DIMER 2.61 MG/L FEU (0-0.50)
[2021-09-20] MEDS: DEXTROSE IV SCH ×3 (04:46→19:25)
[2021-09-20] MEDS: [UNRECOGNIZED DRUG - OTHER] IV SCH ×3 (04:46→19:25)
[2021-09-20] MEDS: TRIMETHOPRIM IV SCH ×3 (04:46→19:25)
[2021-09-20] MEDS: WATER IV SCH ×3 (04:46→19:25)
[2021-09-20] MEDS: lactobacillus rhamnosus 10,000 MMU CELLS/CAPSULE OGT SCH ×2 (08:09→19:24)
[2021-09-20] MEDS: docusate sodium 100mg/10ml UD cup OGT SCH (08:09)
[2021-09-20] MEDS: predniSONE 5mg tablet OGT SCH (08:09)
[2021-09-20] MEDS: nystatin 15 GM powder TP SCH ×3 (08:10→21:00)
[2021-09-20] MEDS: sevelamer carbonate 0.8gm powder pkt OGT SCH ×3 (08:10→18:04)
[2021-09-20] MEDS: enoxaparin 40mg/0.4ml syringe SQ SCH ×2 (08:11→19:24)
[2021-09-20] MEDS: pantoprazole 40MG/NS 100ML BAG 100 ML IV SCH ×2 (08:11→19:24)
[2021-09-20] MEDS: iron sucrose complex injection 200 MG in normal saline 100ml IV soln 100 ML IV SCH (08:11)
[2021-09-20] MEDS: MINOCYCLINE HCL IV SCH ×2 (08:11→19:23)
[2021-09-20] MEDS: NS IV SCH ×2 (08:11→19:23)
[2021-09-20] MEDS ORDERED: furosemide 40mg/4ml inj IV ONE (10:25)
[2021-09-20] MEDS: potassium Cl 20 mEq SR tablet PO SCH (10:43)
[2021-09-20] MEDS: furosemide 40mg/4ml inj IV SCH ×2 (10:43→19:24)
[2021-09-20] MEDS: HYDROmorphone 1 mg/ml syringe IV PRN (11:52)
--- NOTE | 2021-09-20 12:11 | NUR ---
patient proned at 1145 noted patient waking up opening eyes attempting to lift head off the pillow, notified MD received order to start patient on fentanyl drip. Brother Leon at bedside Dr. Boyer able to speak with brother and update regarding current condition.
[2021-09-20] MEDS: FENTANYL-0.9 % NACL/PF 100 ML IV PRN ×2 (12:33→18:03)
[2021-09-20] MEDS: insulin regular, human U-100 3ml vial - multi-dose SQ SCH (14:48)
[2021-09-20] MEDS: acetaZOLAMIDE IV 500mg inj IV SCH ×2 (16:52→23:36)
[2021-09-20] MEDS: insulin glargine (Lantus) pen - multi-dose SQ SCH (21:00)
[2021-09-21] VITALS (36 sets, daily range): BP systolic 86–145; BP diastolic 37–75
[2021-09-21] MEDS: midazolam 100mg in NS 100ml 100 ML IV PRN ×5 (00:04→20:32)
[2021-09-21] MEDS: FENTANYL-0.9 % NACL/PF 100 ML IV PRN ×5 (01:00→20:33)
[2021-09-21] MEDS: mineral oil/petrolatum ophthal oint EACHEYE SCH ×4 (01:13→19:16)
[2021-09-21] MEDS: insulin regular, human U-100 3ml vial - multi-dose SQ SCH ×2 (02:08→20:48)
[2021-09-21] MEDS: OXYcodone 10 MG/0.5 ML ORAL syringe OGT SCH ×8 (02:29→23:16)
[2021-09-21] MEDS: dexmedetomidine/D5W 100mL 100 ML IV SCH ×6 (02:30→23:18)
--- NOTE | 2021-09-21 02:48 | NUR ---
35 yo male, admitted 07/23/2021, day 59 of hospitalization, DNR, NDA, no isolation, no restraints. Initially pt was seen 07/10/2021 in ER for COVID symptoms for 8 days prior to the first ER visit. 07/23/2021 pt return to ER for increased SOB, placed BiPAP admission to ICU. 07/24/2021 pt was emergently intubated. 07/30/2021 pt placed on Rotoprone bed. 08/09/2021 Right pneumo- chest tube placed. 08/10/2021 left TENSION Pneumo- chest tube placed . 08/22/2021 GIB- Protonix gtt started . 08/26/2021 Left pneumo increased. 08/27/2021 Hgb dropped- blood transfusion. 08/29/2021 PICC Line placed HELEN. 09/05/2021 CT C/A/P and head. 09/08/2021 hgb low transfuse 1 unit PRBC, 09/15/2021 chest tubes discontinued, 09/16/2021 hgb low transfuse 1 unit PRBC, 09/20/2021 placed back on Rotoprone bed at 20:00. Currently pt is afebrile 36.3 AX, Pt is sedated with Fentanyl at 125 mcgs 125 (ml's/hr), Versed 20 mg (20 ml's), Precedex at 1mcg 27.5 (ml's/hr). Pupils sluggish. HR 70 SR BP 110/60. Weak pulses, +4 jenniefr edema. All IVF infusing via HELEN TL PICC Line. Dressing CDI, good blood return. Lovenox for DVT prophylaxis. Pt placed back on Rotoprone bed 09/20/2021 20:00. Pt has been intubated for 58 days, intubated 07/24/2021. #8 ETT, 25 cm, VENT AC/ PC, rate 30, TV 406+/-, FIO2 90%, PEEP 10. Coarse, diminished, equal, symmetrical. saturation 85-85%. Gross oral secretions, no ETT secretions. Hypoactive bowel sounds, soft nontender non distended. NGT, right nare, infusing Vital AF at 85 ml's hour (56 carbs). Rectal tube placed no stool noted. Glucose checks Q 6 hours at level 5. Coverage with regular insulin and Lantus. IVPB Protonix for GI prophylaxis. Pt given Lasix 40 mg IV and Diamox at midnight, diuresing well, draining dennis urine at 350+ ml's hour. Multiple skin issues, due to proning. Pt remains safe, Continue to monitor. Remains on Bactrim and Minocycline.
[2021-09-21 03:09] LABS: D-DIMER 2.16 MG/L FEU (0-0.50)
[2021-09-21 03:12] LABS: ANION GAP 7 (8-16); BLOOD UREA NITROGEN 6 MG/DL (7-18); BUN/CREATININE RATIO 21.4 (5.4-32.0); C-REACTIVE PROTEIN 6.52 MG/DL (0.0-0.5); CALCIUM 8.4 MG/DL (8.5-10.1); CHLORIDE 97 MMOL/L (99-107); CREATININE 0.28 MG/DL (0.60-1.10); GLUCOSE 186 MG/DL (70-104); LACTATE DEHYDROGENASE 180 U/L (85-227); SODIUM 139 MMOL/L (135-145); TOTAL CARBON DIOXIDE 34.6 MMOL/L (24-32); eGFR > 90 ML/MIN
[2021-09-21 03:14] LABS: BASOPHILS # (AUTO) 0.1 X10'3 (0-0.2); BASOPHILS % (AUTO) 1.7 % (0-1); EOSINOPHILS # (AUTO) 0.3 X10'3 (0-0.9); HEMATOCRIT 22.1 % (42.0-52.0); LYMPHOCYTES # (AUTO) 0.8 X10'3 (1.1-4.8); LYMPHOCYTES % (AUTO) 13.4 % (21-51); MEAN CORPUSCULAR HGB CONC 31.7 g/dL (33.0-36.5); MEAN CORPUSCULAR VOLUME 88.2 FL (78-98); MEAN PLATELET VOLUME 8.3 FL (7.4-10.4); MONOCYTES # (AUTO) 0.6 X10'3 (0-0.9); NEUTROPHILS # (AUTO) 4.2 X10'3 (1.8-7.7); NEUTROPHILS % (AUTO) 69.9 % (42-75); PLATELET COUNT 284 X10'3 (140-440); RED BLOOD COUNT 2.51 X10'6 (4.70-6.10); RED CELL DISTRIBUTION WIDTH 19.5 % (11.5-14.5)
[2021-09-21 03:58] LABS: ABG BASE EXCESS 6.1 mmol/L (-2.0-2.0); ABG HCO3 33.6 mmol/L (22.0-26.0); ABG OXYGEN SATURATION 95.9 % (94-97); ABG PCO2 (T) 69.6 mmHg (35.0-48.0); ALLEN'S TEST Modified; FCOHb 1.1 % (0.0-3.9); FMetHb 0.3 % (0.0-1.5); FO2Hb 94.6 % (94-97); PEEP 10 cm H2O; RESPIRATORY RATE 30 b/min; TOTAL HEMOGLOBIN 8.1 G/dl (14.0-18.0)
[2021-09-21] MEDS: TRIMETHOPRIM IV SCH ×3 (04:37→20:32)
[2021-09-21] MEDS: DEXTROSE IV SCH ×3 (04:37→20:32)
[2021-09-21] MEDS: WATER IV SCH ×3 (04:37→20:32)
[2021-09-21] MEDS: [UNRECOGNIZED DRUG - OTHER] IV SCH ×3 (04:37→20:32)
[2021-09-21] MEDS: nystatin 15 GM powder TP SCH ×3 (08:00→20:35)
[2021-09-21] MEDS: NS IV SCH ×2 (08:22→19:15)
[2021-09-21] MEDS: MINOCYCLINE HCL IV SCH ×2 (08:22→19:15)
[2021-09-21] MEDS: iron sucrose complex injection 200 MG in normal saline 100ml IV soln 100 ML IV SCH (08:24)
[2021-09-21] MEDS: acetaZOLAMIDE IV 500mg inj IV SCH (08:24)
[2021-09-21] MEDS: pantoprazole 40MG/NS 100ML BAG 100 ML IV SCH ×2 (08:24→19:14)
[2021-09-21] MEDS: docusate sodium 100mg/10ml UD cup OGT SCH (08:24)
[2021-09-21] MEDS: furosemide 40mg/4ml inj IV SCH ×2 (08:24→19:14)
[2021-09-21] MEDS: sevelamer carbonate 0.8gm powder pkt OGT SCH ×3 (08:25→18:00)
[2021-09-21] MEDS: enoxaparin 40mg/0.4ml syringe SQ SCH ×2 (08:25→19:15)
[2021-09-21] MEDS: lactobacillus rhamnosus 10,000 MMU CELLS/CAPSULE OGT SCH ×2 (08:27→19:14)
[2021-09-21] MEDS: predniSONE 5mg tablet OGT SCH (08:27)
[2021-09-21] MEDS: QUEtiapine 25mg tablet OGT SCH ×3 (08:27→23:17)
[2021-09-21] MEDS: ALPRAZolam 0.5mg tablet PO SCH ×3 (08:27→23:16)
[2021-09-21] MEDS: potassium Cl 20 mEq SR tablet PO SCH (08:27)
--- NOTE | 2021-09-21 09:36 | NUR ---
Reassessment: Pt remains intubated, back on rotoprone bed per EMR. Pt continues tolerating TF at goal rate with GRV WNL. Last documented stool output 50 mL 09/16 per I&O. Pt continues receiving routine bowel care with additional PRN bowel care available. No changes to nutrition recommendations at this time. Will continue to follow. Recommendations: 1) Continuous TF using Vital AF with goal rate of 85 mL/hr to provide 2040 mL total volume/day, 2448 kcal, 153 g protein, and 1654 mL water 2) No water flush at this time per MD; monitor serum Na 3) Prealbumin q Thursday/ 4) Daily scaled weights 5) Routine bowel care; utilize PRN bowel care 6) Routine Phos binder per MD; consider routine Phos labs 7) DM education once stable following extubation and official DM dx by physician; A1c 10.1% with no PMH DM in EMR Addendum: 09/21/21 at [address] Amended: Links added.
--- NOTE | 2021-09-21 09:45 | NUR ---
Patient turned from prone to supine position on rotoprone bed, upon removing of face protection mask patient awake opened eyes, called by name and patient nodded head asked him to wiggle his toes and patient was ablet to follow commands, currently on precedex at 1.4, versed ar Addendum: 09/21/21 at 1442 by Liss Camejo RN versed at 20 and fentanyl at 300, sinus rhythm on the monitor hr in the 90's, pressure control rate of 30 fio2 100% peep 10, pressure support 24, lung sounds coarse, saturations between 87-90; og tube with vital hp running at 85ml/hr residuals of 55ml. abdomen soft nontender, rectal tube in place, garcia catheter intact patent draining to gravity, +4 scrotal edema. +4 pitting edema throughout body, unstageable wounds on bilateral shins, left hip and left cheek, bilateral old dressings to bilateral flank where chest tubes were removed dry and intact. picc line to right upper arm patient supined at 0945
--- NOTE | 2021-09-21 10:45 | NUR ---
patient hgb 7.0 1 unit of prbcs started.
--- NOTE | 2021-09-21 12:00 | NUR ---
spoke with Dr. Boyer, notified him patient is awake with sedation at max asked if possible to paralyze or start on propofol, received order to start on propofol.
[2021-09-21] MEDS: HYDROmorphone 1 mg/ml syringe IV PRN (12:02)
[2021-09-21] MEDS: propofol 1000mg/100ml bottle 100 ML IV SCH ×2 (12:44→20:33)
--- NOTE | 2021-09-21 13:30 | NUR ---
patient desaturated to 74% an remained in the 70's, bagged and RT paged. once saturations increased into the 90's placed back onto the ventilator by respiratory and peep increased to 14, patient tolerating well o2 saturations currently 88-91.
[2021-09-21 13:35] LABS: TRIGLYCERIDES 89 MG/DL (20-135)
[2021-09-21 15:23] LABS: C-REACTIVE PROTEIN 5.35 MG/DL (0.0-0.5)
[2021-09-21] MEDS: scopolamine 1mg/72 hr patch TD SCH (16:25)
[2021-09-21 20:01] LABS: BASOPHILS # (AUTO) 0.1 X10'3 (0-0.2); BASOPHILS % (AUTO) 1.4 % (0-1); EOSINOPHILS % (AUTO) 0.5 % (0-6); HEMATOCRIT 25.6 % (42.0-52.0); HEMOGLOBIN 8.3 g/dl (14.0-17.9); LYMPHOCYTES # (AUTO) 0.7 X10'3 (1.1-4.8); LYMPHOCYTES % (AUTO) 9.1 % (21-51); MEAN CORPUSCULAR HEMOGLOBIN 28.2 PG (27.0-31.0); MEAN CORPUSCULAR HGB CONC 32.3 g/dL (33.0-36.5); MEAN CORPUSCULAR VOLUME 87.2 FL (78-98); MONOCYTES # (AUTO) 0.4 X10'3 (0-0.9); MONOCYTES % (AUTO) 5.1 % (2-12); NEUTROPHILS # (AUTO) 6.8 X10'3 (1.8-7.7); NEUTROPHILS % (AUTO) 83.9 % (42-75); PLATELET COUNT 309 X10'3 (140-440); RED BLOOD COUNT 2.94 X10'6 (4.70-6.10); RED CELL DISTRIBUTION WIDTH 18.6 % (11.5-14.5); WHITE BLOOD COUNT 8.1 X10'3 (4.5-11.0)
[2021-09-21] MEDS: insulin glargine (Lantus) pen - multi-dose SQ SCH (20:46)
[2021-09-22] VITALS (36 sets, daily range): BP systolic 85–121; BP diastolic 38–76
[2021-09-22] MEDS: FENTANYL-0.9 % NACL/PF 100 ML IV PRN ×4 (00:20→09:43)
[2021-09-22] MEDS: midazolam 100mg in NS 100ml 100 ML IV PRN ×5 (01:22→20:56)
[2021-09-22] MEDS: mineral oil/petrolatum ophthal oint EACHEYE SCH ×4 (01:23→20:09)
--- NOTE | 2021-09-22 01:32 | NUR ---
35 yo male, admitted 07/23/2021, day 61 of hospitalization, DNR, NDA, no isolation, no restraints. Initially pt was seen 07/10/2021 in ER for COVID symptoms for 8 days prior to the first ER visit. 07/23/2021 pt return to ER for increased SOB, placed BiPAP admission to ICU. 07/24/2021 pt was emergently intubated. 07/30/2021 pt placed on Rotoprone bed. 08/09/2021 Right pneumo- chest tube placed. 08/10/2021 left TENSION Pneumo- chest tube placed . 08/22/2021 GIB- Protonix gtt started . 08/26/2021 Left pneumo increased. 08/27/2021 Hgb dropped- blood transfusion. 08/29/2021 PICC Line placed HELEN. 09/05/2021 CT C/A/P and head. 09/08/2021 hgb low transfuse 1 unit PRBC, 09/15/2021 chest tubes discontinued, 09/16/2021 hgb low transfuse 1 unit PRBC, 09/20/2021 placed back on Rotoprone bed at 20:00. 09/21/2021 transfused 1 unit PRBC. Currently pt is afebrile 36.3 AX, Pt is sedated with Fentanyl at 300 mcgs (30 ml's/hr), Versed 20 mg (20 ml's), Precedex at .5 mcg (13.48 ml's/hr), Propofol 15 mcgs (10.17 ml/hr). Pupils sluggish. Gross facial edema. HR 86 SR BP 109/60. Weak pulses, +4 jennifer edema. All IVF infusing via HELEN TL PICC Line. Dressing CDI, good blood return. Lovenox for DVT prophylaxis. Pt was transfused 1 unit PRBC on day shift, repeat CBC at 1900 HgB 8.3 and HcT 25.6 Pt placed back on Rotoprone bed 09/20/2021 20:00. Pt has been intubated for 60 days, intubated 07/24/2021. #8 ETT, 25 cm, VENT AC/ PC, rate 30, TV 406+/-, FIO2 95%, PEEP 14. Breath sounds, Coarse, diminished, equal, symmetrical. saturation 90-95%. Gross oral secretions, no ETT secretions. Hypoactive bowel sounds, soft nontender non distended. NGT, right nare, infusing Vital AF at 85 ml's hour (56 carbs). Rectal tube placed no stool noted. Glucose checks Q 6 hours at level 5. Coverage with regular insulin and Lantus HS. IVPB Protonix for GI prophylaxis. Pt given Lasix 40 mg IV, draining dennis urine at 100-150+ ml's hour. Multiple skin issues, due to proning. Pt remains safe, Continue to monitor. Remains on Bactrim and Minocycline. Prone cycle 65 degrees turning and 11 degrees reverses Trendelenburg. Addendum: 09/22/21 at 0411 by Isaac Camejo RN at 20:00 supined patient to do assessment and care. Desated to 71%, Suctioned with minimal amount out. Return pat to prone position.
[2021-09-22] MEDS: insulin regular, human U-100 3ml vial - multi-dose SQ SCH ×4 (02:08→20:15)
[2021-09-22] MEDS: OXYcodone 10 MG/0.5 ML ORAL syringe OGT SCH ×7 (02:13→23:04)
[2021-09-22 03:19] LABS: D-DIMER 1.54 MG/L FEU (0-0.50)
[2021-09-22 03:42] LABS: ALBUMIN 2.2 G/DL (3.4-5.0); ANION GAP 6 (8-16); BLOOD UREA NITROGEN 7 MG/DL (7-18); C-REACTIVE PROTEIN 7.25 MG/DL (0.0-0.5); CALCIUM 8.7 MG/DL (8.5-10.1); CHLORIDE 98 MMOL/L (99-107); GLUCOSE 111 MG/DL (70-104); LACTATE DEHYDROGENASE 185 U/L (85-227); POTASSIUM 4.3 MMOL/L (3.5-5.1); SODIUM 138 MMOL/L (135-145); TOTAL CARBON DIOXIDE 34.1 MMOL/L (24-32); TRIGLYCERIDES 244 MG/DL (20-135); eGFR > 90 ML/MIN
[2021-09-22 03:58] LABS: ABG BASE EXCESS 0.1 mmol/L (-2.0-2.0); ABG HCO3 26.3 mmol/L (22.0-26.0); ABG OXYGEN SATURATION 97.5 % (94-97); ALLEN'S TEST POSITIVE; FCOHb 1.1 % (0.0-3.9); FMetHb 0.5 % (0.0-1.5); FO2Hb 95.9 % (94-97); PATIENT TEMPERATURE 37.5; PEEP 14 cm H2O; RESPIRATORY RATE 30 b/min; TOTAL HEMOGLOBIN 7.3 G/dl (14.0-18.0)
[2021-09-22] MEDS: WATER IV SCH ×3 (04:00→20:09)
[2021-09-22] MEDS: [UNRECOGNIZED DRUG - OTHER] IV SCH ×3 (04:00→20:09)
[2021-09-22] MEDS: DEXTROSE IV SCH ×3 (04:00→20:09)
[2021-09-22] MEDS: TRIMETHOPRIM IV SCH ×3 (04:00→20:09)
[2021-09-22] MEDS: dexmedetomidine/D5W 100mL 100 ML IV SCH ×4 (06:29→22:58)
[2021-09-22] MEDS: propofol 1000mg/100ml bottle 100 ML IV SCH ×3 (06:30→22:59)
[2021-09-22] MEDS: NS IV SCH ×2 (07:20→20:30)
[2021-09-22] MEDS: furosemide 40mg/4ml inj IV SCH ×4 (07:20→20:07)
[2021-09-22] MEDS: MINOCYCLINE HCL IV SCH ×2 (07:20→20:30)
[2021-09-22] MEDS: pantoprazole 40MG/NS 100ML BAG 100 ML IV SCH ×2 (07:20→20:07)
[2021-09-22] MEDS: ALPRAZolam 0.5mg tablet PO SCH ×2 (07:21→15:11)
[2021-09-22] MEDS: predniSONE 5mg tablet OGT SCH (07:21)
[2021-09-22] MEDS: QUEtiapine 25mg tablet OGT SCH ×2 (07:21→15:11)
[2021-09-22] MEDS: docusate sodium 100mg/10ml UD cup OGT SCH (07:21)
[2021-09-22] MEDS: sevelamer carbonate 0.8gm powder pkt OGT SCH ×3 (07:21→17:31)
[2021-09-22] MEDS: potassium Cl 20 mEq SR tablet PO SCH (07:21)
[2021-09-22] MEDS: lactobacillus rhamnosus 10,000 MMU CELLS/CAPSULE OGT SCH ×2 (07:22→20:07)
[2021-09-22] MEDS: enoxaparin 40mg/0.4ml syringe SQ SCH ×2 (07:23→20:08)
[2021-09-22] MEDS: nystatin 15 GM powder TP SCH ×3 (07:49→21:00)
[2021-09-22] MEDS: iron sucrose complex injection 200 MG in normal saline 100ml IV soln 100 ML IV SCH (09:51)
[2021-09-22] MEDS: fentaNYL/NS/PF 2,500 mcg/250mL 250 ML IV PRN ×2 (12:23→20:30)
--- NOTE | 2021-09-22 17:42 | NUR ---
1000- not getting his expiratory volumes, breathing rate at 48, increased sedation, issue resolved. 1600- IR here, ultrasound to chest revealed very little fluid. no thoracentesis.
[2021-09-22] MEDS: insulin glargine (Lantus) pen - multi-dose SQ SCH (20:19)
[2021-09-23] VITALS (34 sets, daily range): BP systolic 86–148; BP diastolic 38–89
[2021-09-23] MEDS: furosemide 40mg/4ml inj IV SCH ×5 (00:08→23:55)
[2021-09-23] MEDS: ALPRAZolam 0.5mg tablet PO SCH ×4 (00:08→23:55)
[2021-09-23] MEDS: QUEtiapine 25mg tablet OGT SCH ×4 (00:09→23:55)
[2021-09-23] MEDS: OXYcodone 10 MG/0.5 ML ORAL syringe OGT SCH ×9 (02:28→23:58)
[2021-09-23] MEDS: mineral oil/petrolatum ophthal oint EACHEYE SCH ×4 (02:28→20:03)
[2021-09-23] MEDS: midazolam 100mg in NS 100ml 100 ML IV PRN ×5 (02:29→23:57)
[2021-09-23] MEDS: insulin regular, human U-100 3ml vial - multi-dose SQ SCH ×4 (03:10→20:51)
[2021-09-23 03:26] LABS: ABG BASE EXCESS 7.3 mmol/L (-2.0-2.0); ABG HCO3 35.2 mmol/L (22.0-26.0); ABG OXYGEN SATURATION 95.3 % (94-97); ABG PO2 (T) 90.5 mmHg (75.0-100.0); ALLEN'S TEST POSITIVE; FCOHb 0.5 % (0.0-3.9); FMetHb 0.5 % (0.0-1.5); FO2Hb 94.3 % (94-97); PATIENT TEMPERATURE 37.3; PEEP 14 cm H2O; RESPIRATORY RATE 30 b/min; TOTAL HEMOGLOBIN 9.6 G/dl (14.0-18.0)
[2021-09-23 03:32] LABS: BASOPHILS # (AUTO) 0.1 X10'3 (0-0.2); BASOPHILS % (AUTO) 1.7 % (0-1); EOSINOPHILS # (AUTO) 0.2 X10'3 (0-0.9); EOSINOPHILS % (AUTO) 2.8 % (0-6); HEMATOCRIT 26.1 % (42.0-52.0); HEMOGLOBIN 8.4 g/dl (14.0-17.9); LYMPHOCYTES # (AUTO) 0.7 X10'3 (1.1-4.8); MEAN CORPUSCULAR HGB CONC 32.1 g/dL (33.0-36.5); MEAN CORPUSCULAR VOLUME 87.3 FL (78-98); MONOCYTES # (AUTO) 0.8 X10'3 (0-0.9); MONOCYTES % (AUTO) 10.6 % (2-12); NEUTROPHILS % (AUTO) 75.9 % (42-75); PLATELET COUNT 300 X10'3 (140-440); RED BLOOD COUNT 2.99 X10'6 (4.70-6.10); RED CELL DISTRIBUTION WIDTH 19.1 % (11.5-14.5); WHITE BLOOD COUNT 7.9 X10'3 (4.5-11.0)
[2021-09-23 03:45] LABS: D-DIMER 2.91 MG/L FEU (0-0.50)
[2021-09-23 03:56] LABS: ALBUMIN 2.2 G/DL (3.4-5.0); ANION GAP 3 (8-16); BLOOD UREA NITROGEN 8 MG/DL (7-18); BUN/CREATININE RATIO 42.1 (5.4-32.0); CALCIUM 8.4 MG/DL (8.5-10.1); CHLORIDE 99 MMOL/L (99-107); CREATININE 0.19 MG/DL (0.60-1.10); GLUCOSE 130 MG/DL (70-104); LACTATE DEHYDROGENASE 184 U/L (85-227); MAGNESIUM 1.6 MG/DL (1.5-2.4); PHOSPHORUS 5.2 MG/DL (2.3-4.5); POTASSIUM 4.2 MMOL/L (3.5-5.1); PREALBUMIN 18.9 MG/DL (19-36); SODIUM 139 MMOL/L (135-145); TOTAL CARBON DIOXIDE 36.9 MMOL/L (24-32); TRIGLYCERIDES 107 MG/DL (20-135); eGFR > 90 ML/MIN
[2021-09-23] MEDS: [UNRECOGNIZED DRUG - OTHER] IV SCH ×3 (04:12→20:06)
[2021-09-23] MEDS: TRIMETHOPRIM IV SCH ×3 (04:12→20:06)
[2021-09-23] MEDS: DEXTROSE IV SCH ×3 (04:12→20:06)
[2021-09-23] MEDS: WATER IV SCH ×3 (04:12→20:06)
[2021-09-23] MEDS: dexmedetomidine/D5W 100mL 100 ML IV SCH ×4 (04:24→23:56)
[2021-09-23] MEDS: fentaNYL/NS/PF 2,500 mcg/250mL 250 ML IV PRN ×4 (05:26→23:57)
[2021-09-23] MEDS: propofol 1000mg/100ml bottle 100 ML IV SCH ×2 (06:34→23:56)
[2021-09-23] MEDS: MINOCYCLINE HCL IV SCH ×2 (07:42→20:06)
[2021-09-23] MEDS: pantoprazole 40MG/NS 100ML BAG 100 ML IV SCH ×2 (07:42→20:06)
[2021-09-23] MEDS: iron sucrose complex injection 200 MG in normal saline 100ml IV soln 100 ML IV SCH (07:42)
[2021-09-23] MEDS: NS IV SCH ×2 (07:42→20:06)
[2021-09-23] MEDS: docusate sodium 100mg/10ml UD cup OGT SCH (07:44)
[2021-09-23] MEDS: sevelamer carbonate 0.8gm powder pkt OGT SCH ×3 (07:45→17:23)
[2021-09-23] MEDS: predniSONE 5mg tablet OGT SCH (07:45)
[2021-09-23] MEDS: lactobacillus rhamnosus 10,000 MMU CELLS/CAPSULE OGT SCH ×2 (07:45→20:06)
[2021-09-23] MEDS: potassium Cl 20 mEq SR tablet PO SCH (07:45)
[2021-09-23] MEDS: enoxaparin 40mg/0.4ml syringe SQ SCH ×2 (07:46→20:07)
[2021-09-23] MEDS: nystatin 15 GM powder TP SCH ×4 (08:00→20:06)
--- NOTE | 2021-09-23 10:51 | NUR ---
F/u 09/23: Pt started on Propofol 09/22 currently at 13.56ml/hr providing additional 356 kcals/day. TF to run at 80ml/hr using Vital AF new goal given Propofol; JOSE DE JESUS d/w RN. Recommendations: 1) While pt on current Propofol 13.56ml/hr; Continuous TF using Vital AF with goal rate of 80mL/hr to provide 1920mL total volume/day, 2304 kcal, 144g protein, and 1555mL water 2) IF off Propofol; advance TF using Vital AF with goal rate of 85 mL/hr to provide 2040 mL total volume/day, 2448 kcal, 153 g protein, and 1654 mL water 3) No water flush at this time per MD; monitor serum Na 4) Prealbumin q Thursday/; Daily scaled weights 5) Routine bowel care; utilize PRN bowel care 6) Routine Phos binder per MD; consider routine Phos labs 7) DM education once stable following extubation and official DM dx by physician; A1c 10.1% with no PMH DM in EMR Addendum: 09/23/21 at [address] Amended: Links added.
[2021-09-23] MEDS: insulin glargine (Lantus) pen - multi-dose SQ SCH (20:50)
[2021-09-23] MEDS: scopolamine 1mg/72 hr patch TD SCH (20:53)
[2021-09-24] VITALS (34 sets, daily range): BP systolic 97–158; BP diastolic 43–104
[2021-09-24] MEDS: mineral oil/petrolatum ophthal oint EACHEYE SCH ×4 (02:03→19:28)
[2021-09-24] MEDS: OXYcodone 10 MG/0.5 ML ORAL syringe OGT SCH ×8 (02:26→23:40)
[2021-09-24 03:08] LABS: ABG BASE EXCESS 10.9 mmol/L (-2.0-2.0); ABG HCO3 38.2 mmol/L (22.0-26.0); ABG OXYGEN SATURATION 88.6 % (94-97); ABG PCO2 (T) 68.9 mmHg (35.0-48.0); ABG PO2 (T) 58.5 mmHg (75.0-100.0); ALLEN'S TEST POSITIVE; FMetHb 0.3 % (0.0-1.5); FO2Hb 87.4 % (94-97); PATIENT TEMPERATURE 36.9; PEEP 14 cm H2O; RESPIRATORY RATE 30 b/min; TOTAL HEMOGLOBIN 9.3 G/dl (14.0-18.0)
[2021-09-24 03:43] LABS: D-DIMER 2.17 MG/L FEU (0-0.50)
[2021-09-24] MEDS: DEXTROSE IV SCH ×3 (03:46→19:28)
[2021-09-24] MEDS: TRIMETHOPRIM IV SCH ×3 (03:46→19:28)
[2021-09-24] MEDS: [UNRECOGNIZED DRUG - OTHER] IV SCH ×3 (03:46→19:28)
[2021-09-24] MEDS: WATER IV SCH ×3 (03:46→19:28)
[2021-09-24 03:51] LABS: ALBUMIN 2.3 G/DL (3.4-5.0); ANION GAP 1 (8-16); BLOOD UREA NITROGEN 6 MG/DL (7-18); C-REACTIVE PROTEIN 5.52 MG/DL (0.0-0.5); CHLORIDE 98 MMOL/L (99-107); CREATININE 0.03 MG/DL (0.60-1.10); GLUCOSE 80 MG/DL (70-104); LACTATE DEHYDROGENASE 193 U/L (85-227); POTASSIUM 3.5 MMOL/L (3.5-5.1); SODIUM 139 MMOL/L (135-145); TOTAL CARBON DIOXIDE 39.7 MMOL/L (24-32); eGFR > 90 ML/MIN
[2021-09-24 04:14] LABS: BASOPHILS # (AUTO) 0.1 X10'3 (0-0.2); BASOPHILS % (AUTO) 0.9 % (0-1); EOSINOPHILS # (AUTO) 0.2 X10'3 (0-0.9); HEMATOCRIT 26.4 % (42.0-52.0); HEMOGLOBIN 8.6 g/dl (14.0-17.9); LYMPHOCYTES # (AUTO) 0.7 X10'3 (1.1-4.8); LYMPHOCYTES % (AUTO) 7.5 % (21-51); MEAN CORPUSCULAR HEMOGLOBIN 28.2 PG (27.0-31.0); MEAN CORPUSCULAR HGB CONC 32.5 g/dL (33.0-36.5); MEAN PLATELET VOLUME 8.1 FL (7.4-10.4); MONOCYTES # (AUTO) 0.8 X10'3 (0-0.9); MONOCYTES % (AUTO) 8.6 % (2-12); NEUTROPHILS # (AUTO) 7.4 X10'3 (1.8-7.7); PLATELET COUNT 313 X10'3 (140-440); RED BLOOD COUNT 3.04 X10'6 (4.70-6.10); RED CELL DISTRIBUTION WIDTH 18.9 % (11.5-14.5); WHITE BLOOD COUNT 9.1 X10'3 (4.5-11.0)
[2021-09-24] MEDS: midazolam 100mg in NS 100ml 100 ML IV PRN ×4 (04:45→21:18)
[2021-09-24] MEDS: propofol 1000mg/100ml bottle 100 ML IV SCH ×3 (04:45→15:17)
[2021-09-24 05:38] LABS: ANISOCYTOSIS 2+; ELLIPTOCYTES FEW; HYPOCHROMASIA 1+; PLATELET ESTIMATE NORMAL; SCHISTOCYTES FEW
[2021-09-24] MEDS: dexmedetomidine/D5W 100mL 100 ML IV SCH ×4 (07:14→20:17)
[2021-09-24] MEDS: predniSONE 5mg tablet OGT SCH (07:16)
[2021-09-24] MEDS: QUEtiapine 25mg tablet OGT SCH ×3 (07:16→23:40)
[2021-09-24] MEDS: docusate sodium 100mg/10ml UD cup OGT SCH (07:16)
[2021-09-24] MEDS: furosemide 40mg/4ml inj IV SCH ×3 (07:16→23:39)
[2021-09-24] MEDS: potassium Cl 20 mEq SR tablet PO SCH (07:16)
[2021-09-24] MEDS: lactobacillus rhamnosus 10,000 MMU CELLS/CAPSULE OGT SCH ×2 (07:16→20:17)
[2021-09-24] MEDS: enoxaparin 40mg/0.4ml syringe SQ SCH ×2 (07:17→20:17)
[2021-09-24] MEDS: nystatin 15 GM powder TP SCH ×3 (07:18→20:18)
[2021-09-24] MEDS: ALPRAZolam 0.5mg tablet PO SCH ×3 (07:41→23:40)
[2021-09-24] MEDS: iron sucrose complex injection 200 MG in normal saline 100ml IV soln 100 ML IV SCH (07:42)
[2021-09-24] MEDS: pantoprazole 40MG/NS 100ML BAG 100 ML IV SCH ×2 (07:42→20:17)
[2021-09-24] MEDS: sevelamer carbonate 0.8gm powder pkt OGT SCH ×3 (07:42→17:46)
[2021-09-24] MEDS: NS IV SCH ×2 (08:24→20:16)
[2021-09-24] MEDS: MINOCYCLINE HCL IV SCH ×2 (08:24→20:16)
[2021-09-24] MEDS: metolazone 2.5mg tablet PO SCH ×2 (10:12→20:17)
[2021-09-24] MEDS: insulin regular, human U-100 3ml vial - multi-dose SQ SCH ×2 (14:20→20:32)
[2021-09-24] MEDS: fentaNYL/NS/PF 2,500 mcg/250mL 250 ML IV PRN (19:33)
[2021-09-24] MEDS: insulin glargine (Lantus) pen - multi-dose SQ SCH (20:37)
[2021-09-25] VITALS (36 sets, daily range): BP systolic 107–156; BP diastolic 58–106
[2021-09-25] MEDS: propofol 1000mg/100ml bottle 100 ML IV SCH ×4 (00:06→19:02)
[2021-09-25] MEDS: dexmedetomidine/D5W 100mL 100 ML IV SCH ×5 (00:28→22:40)
[2021-09-25] MEDS: midazolam 100mg in NS 100ml 100 ML IV PRN ×4 (01:56→18:18)
[2021-09-25] MEDS: mineral oil/petrolatum ophthal oint EACHEYE SCH ×4 (01:57→20:09)
[2021-09-25] MEDS: OXYcodone 10 MG/0.5 ML ORAL syringe OGT SCH ×3 (02:47→10:44)
[2021-09-25] MEDS: insulin regular, human U-100 3ml vial - multi-dose SQ SCH ×3 (02:52→20:31)
[2021-09-25 03:16] LABS: D-DIMER 1.49 MG/L FEU (0-0.50)
[2021-09-25 03:40] LABS: ALBUMIN 2.3 G/DL (3.4-5.0); ANION GAP 3 (8-16); BLOOD UREA NITROGEN 5 MG/DL (7-18); C-REACTIVE PROTEIN 6.83 MG/DL (0.0-0.5); CALCIUM 7.6 MG/DL (8.5-10.1); CHLORIDE 96 MMOL/L (99-107); GLUCOSE 132 MG/DL (70-104); LACTATE DEHYDROGENASE 190 U/L (85-227); POTASSIUM 3.1 MMOL/L (3.5-5.1); SODIUM 139 MMOL/L (135-145); eGFR > 90 ML/MIN
[2021-09-25] MEDS: [UNRECOGNIZED DRUG - OTHER] IV SCH ×3 (03:43→19:21)
[2021-09-25] MEDS: WATER IV SCH ×3 (03:43→19:21)
[2021-09-25] MEDS: TRIMETHOPRIM IV SCH ×3 (03:43→19:21)
[2021-09-25] MEDS: DEXTROSE IV SCH ×3 (03:43→19:21)
[2021-09-25 03:47] LABS: ABG BASE EXCESS 16.2 mmol/L (-2.0-2.0); ABG HCO3 46.2 mmol/L (22.0-26.0); ABG OXYGEN SATURATION 87.6 % (94-97); ABG PO2 (T) 56.2 mmHg (75.0-100.0); ALLEN'S TEST Modified; FMetHb 0.2 % (0.0-1.5); FO2Hb 86.5 % (94-97); PATIENT TEMPERATURE 36.9; PEEP 14 cm H2O; RESPIRATORY RATE 30 b/min
[2021-09-25] MEDS: POTASSIUM BICARB 20meq eff tab 20 MEQ TABLET.EFF OGT PRN (05:34)
[2021-09-25] MEDS: nystatin 15 GM powder TP SCH ×3 (08:00→20:10)
[2021-09-25] MEDS ORDERED: iohexol 350MG/ML 100ml bottle IV ONE (09:17)
--- NOTE | 2021-09-25 09:45 | NUR ---
PATIENT TAKEN OFF ROTOPRONE TO TAKE TO CT
--- NOTE | 2021-09-25 10:00 | NUR ---
PATIENT TAKEN TO CTA OF CHEST TOLERATED WELL.
[2021-09-25] MEDS: ALPRAZolam 0.5mg tablet PO SCH ×2 (10:43→16:30)
[2021-09-25] MEDS: predniSONE 5mg tablet OGT SCH (10:43)
[2021-09-25] MEDS: furosemide 40mg/4ml inj IV SCH ×2 (10:43→16:30)
[2021-09-25] MEDS: lactobacillus rhamnosus 10,000 MMU CELLS/CAPSULE OGT SCH ×2 (10:43→20:09)
[2021-09-25] MEDS: MINOCYCLINE HCL IV SCH ×2 (10:43→20:09)
[2021-09-25] MEDS: QUEtiapine 25mg tablet OGT SCH (10:43)
[2021-09-25] MEDS: NS IV SCH ×2 (10:43→20:09)
[2021-09-25] MEDS: docusate sodium 100mg/10ml UD cup OGT SCH (10:43)
[2021-09-25] MEDS: enoxaparin 40mg/0.4ml syringe SQ SCH ×2 (10:44→20:10)
[2021-09-25] MEDS: pantoprazole 40MG/NS 100ML BAG 100 ML IV SCH ×2 (10:44→20:09)
[2021-09-25] MEDS ORDERED: OXYcodone 10 MG/0.5 ML ORAL syringe OGT PRN (11:35)
--- NOTE | 2021-09-25 11:39 | NUR ---
Reassessment: Pt remains intubated and tolerating TF at goal rate of 80 mL/hr. Per EMR no changes to Propofol rate at this time therefore no TF adjustments warranted at this time. LBM 09/23, with a rectal tube in place though no documentation of stool output in I&O. Pt continues receiving routine bowel care with additional PRN bowel care available. Will continue to follow. Recommendations: 1) While pt on current Propofol 13.56ml/hr; Continuous TF using Vital AF with goal rate of 80mL/hr to provide 1920mL total volume/day, 2304 kcal, 144g protein, and 1555mL water 2) IF off Propofol; advance TF using Vital AF with goal rate of 85 mL/hr to provide 2040 mL total volume/day, 2448 kcal, 153 g protein, and 1654 mL water 3) No water flush at this time per MD; monitor serum Na 4) Prealbumin q Thursday/ 5) Daily scaled weights 6) Routine bowel care; utilize PRN bowel care 7) Routine Phos binder per MD; consider routine Phos labs 8) DM education once stable following extubation and official DM dx by physician; A1c 10.1% with no PMH DM in EMR Addendum: 09/25/21 at [address] Amended: Links added.
--- NOTE | 2021-09-25 11:55 | NUR ---
PATIENT TAKEN TO CT [facility]GIO FOR PLACEMENT OF CT GUIDED CHEST TUBE ON THE RIGHT SIDE.
--- NOTE | 2021-09-25 12:51 | NUR ---
PATIENT BACK FROM CT [facility] WITH CHEST TUBE PIGTAIL ON THE RIGHT SIDE, CURRENTLY ON 100% FIO2 WITH SATURATIONS 100%.
[2021-09-25 13:09] LABS: ABG BASE EXCESS 22.2 mmol/L (-2.0-2.0); ABG HCO3 51.6 mmol/L (22.0-26.0); ABG OXYGEN SATURATION 99.1 % (94-97); ABG PCO2 (T) 94.1 mmHg (35.0-48.0); ABG PO2 (T) 171.9 mmHg (75.0-100.0); ALLEN'S TEST Modified; FCOHb 0.8 % (0.0-3.9); FMetHb 0.4 % (0.0-1.5); FO2Hb 97.9 % (94-97); PEEP 14 cm H2O; RESPIRATORY RATE 30 b/min; TOTAL HEMOGLOBIN 10.1 G/dl (14.0-18.0)
[2021-09-25] MEDS: potassium Cl 20 mEq SR tablet PO SCH (13:32)
[2021-09-25] MEDS: sevelamer carbonate 0.8gm powder pkt OGT SCH ×3 (13:32→17:58)
[2021-09-25] MEDS: metolazone 2.5mg tablet PO SCH ×2 (13:32→20:09)
[2021-09-25] MEDS: fentaNYL/NS/PF 2,500 mcg/250mL 250 ML IV PRN (19:05)
[2021-09-25] MEDS: insulin glargine (Lantus) pen - multi-dose SQ SCH (20:13)
[2021-09-26] VITALS (28 sets, daily range): BP systolic 79–146; BP diastolic 39–96
[2021-09-26] MEDS: furosemide 40mg/4ml inj IV SCH ×3 (00:02→16:45)
[2021-09-26] MEDS: midazolam 100mg in NS 100ml 100 ML IV PRN ×5 (00:02→19:59)
[2021-09-26] MEDS: ALPRAZolam 0.5mg tablet PO SCH ×3 (00:02→16:45)
[2021-09-26] MEDS: propofol 1000mg/100ml bottle 100 ML IV SCH ×4 (00:03→16:52)
[2021-09-26] MEDS: mineral oil/petrolatum ophthal oint EACHEYE SCH ×4 (02:53→19:56)
[2021-09-26] MEDS: insulin regular, human U-100 3ml vial - multi-dose SQ SCH ×4 (02:55→20:10)
[2021-09-26 03:26] LABS: BASOPHILS # (AUTO) 0.1 X10'3 (0-0.2); BASOPHILS % (AUTO) 0.8 % (0-1); EOSINOPHILS # (AUTO) 0.1 X10'3 (0-0.9); EOSINOPHILS % (AUTO) 0.5 % (0-6); HEMATOCRIT 28.7 % (42.0-52.0); HEMOGLOBIN 9.3 g/dl (14.0-17.9); LYMPHOCYTES # (AUTO) 0.6 X10'3 (1.1-4.8); LYMPHOCYTES % (AUTO) 5.5 % (21-51); MEAN CORPUSCULAR HEMOGLOBIN 27.7 PG (27.0-31.0); MEAN CORPUSCULAR HGB CONC 32.5 g/dL (33.0-36.5); MEAN CORPUSCULAR VOLUME 85.2 FL (78-98); MEAN PLATELET VOLUME 7.8 FL (7.4-10.4); MONOCYTES # (AUTO) 0.9 X10'3 (0-0.9); NEUTROPHILS # (AUTO) 9.3 X10'3 (1.8-7.7); NEUTROPHILS % (AUTO) 85.2 % (42-75); PLATELET COUNT 345 X10'3 (140-440); RED BLOOD COUNT 3.37 X10'6 (4.70-6.10); RED CELL DISTRIBUTION WIDTH 19.2 % (11.5-14.5); WHITE BLOOD COUNT 10.9 X10'3 (4.5-11.0)
[2021-09-26 03:36] LABS: D-DIMER 1.77 MG/L FEU (0-0.50)
[2021-09-26 03:44] LABS: ALBUMIN 2.5 G/DL (3.4-5.0); BLOOD UREA NITROGEN 7 MG/DL (7-18); BUN/CREATININE RATIO 33.3 (5.4-32.0); C-REACTIVE PROTEIN 5.44 MG/DL (0.0-0.5); CALCIUM 9.3 MG/DL (8.5-10.1); CHLORIDE 90 MMOL/L (99-107); CREATININE 0.21 MG/DL (0.60-1.10); GLUCOSE 115 MG/DL (70-104); LACTATE DEHYDROGENASE 239 U/L (85-227); MAGNESIUM 1.6 MG/DL (1.5-2.4); PHOSPHORUS 2.6 MG/DL (2.3-4.5); PREALBUMIN 23.8 MG/DL (19-36); SODIUM 137 MMOL/L (135-145); eGFR > 90 ML/MIN
[2021-09-26 03:54] LABS: ANION GAP -3 (8-16)
[2021-09-26 03:57] LABS: POTASSIUM 2.7 MMOL/L (3.5-5.1); TOTAL CARBON DIOXIDE > 50 MMOL/L (24-32)
[2021-09-26] MEDS: DEXTROSE IV SCH ×3 (04:00→19:57)
[2021-09-26] MEDS: WATER IV SCH ×3 (04:00→19:57)
[2021-09-26] MEDS: [UNRECOGNIZED DRUG - OTHER] IV SCH ×3 (04:00→19:57)
[2021-09-26] MEDS: TRIMETHOPRIM IV SCH ×3 (04:00→19:57)
[2021-09-26] MEDS: dexmedetomidine/D5W 100mL 100 ML IV SCH ×4 (04:04→18:23)
[2021-09-26] MEDS: potassium Cl 20mEq/100mL bag 100 ML IV PRN ×7 (04:11→17:47)
[2021-09-26] MEDS: fentaNYL/NS/PF 2,500 mcg/250mL 250 ML IV PRN (04:49)
[2021-09-26 05:01] LABS: ANISOCYTOSIS 2+; PLATELET ESTIMATE NORMAL
[2021-09-26 05:02] LABS: ELLIPTOCYTES FEW; TEAR DROP CELLS FEW
[2021-09-26 05:03] LABS: HYPOCHROMASIA 1+
[2021-09-26] MEDS: pantoprazole 40MG/NS 100ML BAG 100 ML IV SCH ×2 (07:44→19:59)
[2021-09-26] MEDS: NS IV SCH ×2 (07:44→19:59)
[2021-09-26] MEDS: MINOCYCLINE HCL IV SCH ×2 (07:44→19:59)
[2021-09-26] MEDS: enoxaparin 40mg/0.4ml syringe SQ SCH ×2 (07:45→19:59)
[2021-09-26] MEDS: predniSONE 5mg tablet OGT SCH (07:45)
[2021-09-26] MEDS: lactobacillus rhamnosus 10,000 MMU CELLS/CAPSULE OGT SCH ×2 (07:45→20:00)
[2021-09-26] MEDS: metolazone 2.5mg tablet PO SCH ×2 (07:45→20:00)
[2021-09-26] MEDS: potassium Cl 20 mEq SR tablet PO SCH (07:45)
[2021-09-26] MEDS: docusate sodium 100mg/10ml UD cup OGT SCH (07:45)
[2021-09-26] MEDS: sevelamer carbonate 0.8gm powder pkt OGT SCH ×3 (07:46→17:45)
[2021-09-26] MEDS: nystatin 15 GM powder TP SCH ×3 (07:46→20:00)
[2021-09-26 11:49] LABS: ABG BASE EXCESS 25.1 mmol/L (-2.0-2.0); ABG HCO3 49.1 mmol/L (22.0-26.0); ABG OXYGEN SATURATION 90.4 % (94-97); ABG PCO2 (T) 49.3 mmHg (35.0-48.0); ABG PO2 (T) 54.6 mmHg (75.0-100.0); ALLEN'S TEST POSITIVE; FCOHb 0.5 % (0.0-3.9); FMetHb 0.1 % (0.0-1.5); FO2Hb 89.9 % (94-97); PATIENT TEMPERATURE 37.4; TOTAL HEMOGLOBIN 10.3 G/dl (14.0-18.0)
[2021-09-26] MEDS ORDERED: acetaZOLAMIDE IV 500mg inj IV ONE (11:55)
[2021-09-26] MEDS: HYDROmorphone 1 mg/ml syringe IV PRN ×2 (14:03→17:03)
[2021-09-26 15:13] LABS: ABG BASE EXCESS 22.8 mmol/L (-2.0-2.0); ABG HCO3 49.5 mmol/L (22.0-26.0); ABG OXYGEN SATURATION 93.3 % (94-97); ABG PCO2 (T) 66.3 mmHg (35.0-48.0); ABG PO2 (T) 67.5 mmHg (75.0-100.0); ALLEN'S TEST POSITIVE; FCOHb 0.7 % (0.0-3.9); FMetHb 0.3 % (0.0-1.5); FO2Hb 92.4 % (94-97); PATIENT TEMPERATURE 37.3; PEEP 12 cm H2O; RESPIRATORY RATE 14 b/min
[2021-09-26] MEDS ORDERED: HYDROmorphone 1 mg/ml syringe IM ONE (17:00)
[2021-09-26] MEDS: insulin glargine (Lantus) pen - multi-dose SQ SCH (20:09)
[2021-09-27] VITALS (27 sets, daily range): BP systolic 91–138; BP diastolic 44–88
[2021-09-27] MEDS: ALPRAZolam 0.5mg tablet PO SCH ×4 (00:18→23:51)
[2021-09-27] MEDS: furosemide 40mg/4ml inj IV SCH ×4 (00:18→23:51)
[2021-09-27] MEDS: dexmedetomidine/D5W 100mL 100 ML IV SCH ×5 (01:05→23:44)
[2021-09-27] MEDS: mineral oil/petrolatum ophthal oint EACHEYE SCH ×4 (02:09→19:33)
[2021-09-27] MEDS: insulin regular, human U-100 3ml vial - multi-dose SQ SCH ×3 (02:39→19:55)
[2021-09-27 02:59] LABS: BASOPHILS # (AUTO) 0.1 X10'3 (0-0.2); BASOPHILS % (AUTO) 1.1 % (0-1); EOSINOPHILS # (AUTO) 0.6 X10'3 (0-0.9); EOSINOPHILS % (AUTO) 6.1 % (0-6); HEMATOCRIT 30.5 % (42.0-52.0); HEMOGLOBIN 9.9 g/dl (14.0-17.9); LYMPHOCYTES # (AUTO) 0.9 X10'3 (1.1-4.8); MEAN CORPUSCULAR HEMOGLOBIN 27.4 PG (27.0-31.0); MEAN CORPUSCULAR HGB CONC 32.3 g/dL (33.0-36.5); MEAN CORPUSCULAR VOLUME 84.8 FL (78-98); MEAN PLATELET VOLUME 7.5 FL (7.4-10.4); MONOCYTES # (AUTO) 0.9 X10'3 (0-0.9); MONOCYTES % (AUTO) 9.7 % (2-12); NEUTROPHILS # (AUTO) 6.8 X10'3 (1.8-7.7); NEUTROPHILS % (AUTO) 73.1 % (42-75); PLATELET COUNT 355 X10'3 (140-440); RED CELL DISTRIBUTION WIDTH 19.3 % (11.5-14.5); WHITE BLOOD COUNT 9.3 X10'3 (4.5-11.0)
[2021-09-27] MEDS: fentaNYL/NS/PF 2,500 mcg/250mL 250 ML IV PRN ×2 (03:12→14:24)
[2021-09-27] MEDS: midazolam 100mg in NS 100ml 100 ML IV PRN ×4 (03:12→23:45)
[2021-09-27 03:18] LABS: ALBUMIN 2.6 G/DL (3.4-5.0); BLOOD UREA NITROGEN 8 MG/DL (7-18); C-REACTIVE PROTEIN 5.69 MG/DL (0.0-0.5); CALCIUM 9.2 MG/DL (8.5-10.1); CHLORIDE 90 MMOL/L (99-107); GLUCOSE 99 MG/DL (70-104); LACTATE DEHYDROGENASE 226 U/L (85-227); POTASSIUM 3.2 MMOL/L (3.5-5.1); eGFR > 90 ML/MIN
[2021-09-27 03:36] LABS: ANION GAP 3 (8-16); SODIUM 136 MMOL/L (135-145)
[2021-09-27 03:38] LABS: TOTAL CARBON DIOXIDE 42.6 MMOL/L (24-32)
[2021-09-27] MEDS: DEXTROSE IV SCH ×3 (03:53→19:30)
[2021-09-27] MEDS: [UNRECOGNIZED DRUG - OTHER] IV SCH ×3 (03:53→19:30)
[2021-09-27] MEDS: TRIMETHOPRIM IV SCH ×3 (03:53→19:30)
[2021-09-27] MEDS: WATER IV SCH ×3 (03:53→19:30)
[2021-09-27 04:04] LABS: ANISOCYTOSIS 2+; PLATELET ESTIMATE NORMAL
[2021-09-27 04:05] LABS: HYPOCHROMASIA 1+
[2021-09-27 04:06] LABS: ELLIPTOCYTES FEW; TEAR DROP CELLS FEW
[2021-09-27 04:09] LABS: ABG BASE EXCESS 16.9 mmol/L (-2.0-2.0); ABG HCO3 43.4 mmol/L (22.0-26.0); ABG OXYGEN SATURATION 90.1 % (94-97); ABG PCO2 (T) 60.4 mmHg (35.0-48.0); ABG PO2 (T) 55.9 mmHg (75.0-100.0); ALLEN'S TEST POSITIVE; FCOHb 1.1 % (0.0-3.9); FMetHb 0.2 % (0.0-1.5); FO2Hb 88.9 % (94-97); PATIENT TEMPERATURE 36.4; PEEP 12 cm H2O; RESPIRATORY RATE 14 b/min; TOTAL HEMOGLOBIN 11.2 G/dl (14.0-18.0)
[2021-09-27] MEDS: potassium Cl 20mEq/100mL bag 100 ML IV PRN ×2 (06:01→07:08)
[2021-09-27] MEDS: propofol 1000mg/100ml bottle 100 ML IV SCH ×3 (06:01→19:34)
[2021-09-27] MEDS: metolazone 2.5mg tablet PO SCH (07:09)
[2021-09-27] MEDS: lactobacillus rhamnosus 10,000 MMU CELLS/CAPSULE OGT SCH ×2 (07:09→19:32)
[2021-09-27] MEDS: potassium Cl 20 mEq SR tablet PO SCH ×3 (07:09→21:21)
[2021-09-27] MEDS: sevelamer carbonate 0.8gm powder pkt OGT SCH (07:09)
[2021-09-27] MEDS: predniSONE 5mg tablet OGT SCH (07:09)
[2021-09-27] MEDS: docusate sodium 100mg/10ml UD cup OGT SCH (07:09)
[2021-09-27] MEDS: nystatin 15 GM powder TP SCH ×3 (07:10→21:21)
[2021-09-27] MEDS: MINOCYCLINE HCL IV SCH ×2 (07:11→19:31)
[2021-09-27] MEDS: pantoprazole 40MG/NS 100ML BAG 100 ML IV SCH (07:11)
[2021-09-27] MEDS: NS IV SCH ×2 (07:11→19:31)
[2021-09-27] MEDS: enoxaparin 40mg/0.4ml syringe SQ SCH ×2 (07:11→19:32)
[2021-09-27] MEDS: acetaZOLAMIDE IV 500mg inj IV SCH ×3 (07:15→23:51)
[2021-09-27] MEDS: HYDROmorphone 1 mg/ml syringe IV PRN (12:31)
[2021-09-27] MEDS: insulin glargine (Lantus) pen - multi-dose SQ SCH (20:37)
[2021-09-28] VITALS (30 sets, daily range): BP systolic 97–120; BP diastolic 53–76
--- NOTE | 2021-09-28 01:24 | NUR ---
35 yo male, admitted 07/23/2021, day 66 of hospitalization, DNR, NDA, no isolation, no restraints. Initially pt was seen 07/10/2021 in ER for COVID symptoms for 8 days prior to the first ER visit. 07/23/2021 pt return to ER for increased SOB, placed BiPAP admission to ICU. 07/24/2021 pt was emergently intubated. 07/30/2021 pt placed on Rotoprone bed. 08/09/2021 Right pneumo- chest tube placed. 08/10/2021 left TENSION Pneumo- chest tube placed . 08/22/2021 GIB- Protonix gtt started . 08/26/2021 Left pneumo increased. 08/27/2021 Hgb dropped- blood transfusion. 08/29/2021 PICC Line placed HELEN. 09/05/2021 CT C/A/P and head. 09/08/2021 hgb low transfuse 1 unit PRBC, 09/15/2021 chest tubes discontinued, 09/16/2021 hgb low transfuse 1 unit PRBC, 09/20/2021 placed back on Rotoprone bed at 20:00. 09/21/2021 transfused 1 unit PRBC. 09/21/2021 transfused 1 unit PRBC's. 09/25/2021 CTA chest, chest tube placed. 09/25/2021 off Rotoprone bed. Currently pt is afebrile 36.3 core, Pt is sedated with Fentanyl at 250 mcgs (25 ml's/hr), Versed 15 mg (15 ml's), Precedex at .7 mcg (18.88 ml's/hr), Propofol 20 mcgs (13.56 ml/hr). Pupils sluggish. Facial wounds from proning. HR 88 SR BP 96/58. Weak pulses, +2+3 generalized edema. All IVF infusing via HELEN TL PICC Line. Dressing CDI, good blood return. Lovenox for DVT prophylaxis. Rt chest tube placed 09/25/2021 draining SS fluid, dressing CDI. Pt has been intubated for 65 days, intubated 07/24/2021. #8 ETT, 25 cm, VENT AC/ PC, rate 21, TV 665+/-, FIO2 60%, PEEP 12. Breath sounds, Coarse, diminished, equal, symmetrical. saturation 90-95%, no ETT secretions. Hypoactive bowel sounds, soft nontender non distended. OGT infusing Vital AF at 80 ml's hour. Rectal tube draining brown stool. Glucose checks Q 6 hours at level 5. Coverage with regular insulin and Lantus HS. IVPB Protonix for GI prophylaxis. Pt given Lasix 40 mg IV, draining dennis urine. Multiple skin issues, due to proning. Pt turned Q 2 hours. Pt remains safe, Continue to monitor. Remains on Bactrim and Minocycline.
[2021-09-28] MEDS: mineral oil/petrolatum ophthal oint EACHEYE SCH ×4 (02:07→19:33)
[2021-09-28 02:59] LABS: ABG BASE EXCESS 9.8 mmol/L (-2.0-2.0); ABG HCO3 36.6 mmol/L (22.0-26.0); ABG OXYGEN SATURATION 95.2 % (94-97); ABG PCO2 (T) 60.5 mmHg (35.0-48.0); ABG PO2 (T) 77.8 mmHg (75.0-100.0); ALLEN'S TEST POSITIVE; FCOHb 0.7 % (0.0-3.9); FMetHb 0.4 % (0.0-1.5); FO2Hb 94.2 % (94-97); PATIENT TEMPERATURE 36.7; PEEP 12 cm H2O; RESPIRATORY RATE 14 b/min; TOTAL HEMOGLOBIN 11.2 G/dl (14.0-18.0)
[2021-09-28] MEDS: propofol 1000mg/100ml bottle 100 ML IV SCH ×5 (02:59→21:50)
[2021-09-28] MEDS: fentaNYL/NS/PF 2,500 mcg/250mL 250 ML IV PRN ×3 (03:02→21:01)
[2021-09-28] MEDS: dexmedetomidine/D5W 100mL 100 ML IV SCH ×5 (03:07→23:23)
[2021-09-28] MEDS: insulin regular, human U-100 3ml vial - multi-dose SQ SCH ×4 (03:32→20:08)
[2021-09-28] MEDS: WATER IV SCH ×3 (04:00→19:28)
[2021-09-28] MEDS: [UNRECOGNIZED DRUG - OTHER] IV SCH ×3 (04:00→19:28)
[2021-09-28] MEDS: TRIMETHOPRIM IV SCH ×3 (04:00→19:28)
[2021-09-28] MEDS: DEXTROSE IV SCH ×3 (04:00→19:28)
[2021-09-28 04:01] LABS: BASOPHILS # (AUTO) 0.1 X10'3 (0-0.2); BASOPHILS % (AUTO) 1.5 % (0-1); EOSINOPHILS # (AUTO) 0.8 X10'3 (0-0.9); EOSINOPHILS % (AUTO) 9.7 % (0-6); HEMATOCRIT 30.7 % (42.0-52.0); HEMOGLOBIN 9.9 g/dl (14.0-17.9); LYMPHOCYTES # (AUTO) 0.9 X10'3 (1.1-4.8); LYMPHOCYTES % (AUTO) 10.9 % (21-51); MEAN CORPUSCULAR HEMOGLOBIN 27.7 PG (27.0-31.0); MEAN CORPUSCULAR HGB CONC 32.4 g/dL (33.0-36.5); MEAN CORPUSCULAR VOLUME 85.5 FL (78-98); MONOCYTES # (AUTO) 0.8 X10'3 (0-0.9); MONOCYTES % (AUTO) 9.4 % (2-12); NEUTROPHILS # (AUTO) 5.7 X10'3 (1.8-7.7); NEUTROPHILS % (AUTO) 68.5 % (42-75); PLATELET COUNT 336 X10'3 (140-440); RED BLOOD COUNT 3.59 X10'6 (4.70-6.10); RED CELL DISTRIBUTION WIDTH 19.1 % (11.5-14.5); WHITE BLOOD COUNT 8.3 X10'3 (4.5-11.0)
[2021-09-28 04:15] LABS: ALBUMIN 2.7 G/DL (3.4-5.0); ANION GAP 5 (8-16); BLOOD UREA NITROGEN 12 MG/DL (7-18); BUN/CREATININE RATIO 57.1 (5.4-32.0); C-REACTIVE PROTEIN 5.22 MG/DL (0.0-0.5); CALCIUM 9.3 MG/DL (8.5-10.1); CHLORIDE 93 MMOL/L (99-107); CREATININE 0.21 MG/DL (0.60-1.10); GLUCOSE 107 MG/DL (70-104); LACTATE DEHYDROGENASE 210 U/L (85-227); POTASSIUM 3.6 MMOL/L (3.5-5.1); SODIUM 134 MMOL/L (135-145); TOTAL CARBON DIOXIDE 35.6 MMOL/L (24-32); TRIGLYCERIDES 106 MG/DL (20-135); eGFR > 90 ML/MIN
[2021-09-28 04:24] LABS: D-DIMER 1.15 MG/L FEU (0-0.50)
[2021-09-28] MEDS: midazolam 100mg in NS 100ml 100 ML IV PRN ×3 (06:20→19:30)
--- NOTE | 2021-09-28 06:30 | NUR ---
Patient in room CICU 2009. I have received report from ezra and had the opportunity to ask questions and assume patient care.
[2021-09-28] MEDS: furosemide 40mg/4ml inj IV SCH ×3 (08:00→23:20)
[2021-09-28] MEDS: docusate sodium 100mg/10ml UD cup OGT SCH (08:00)
[2021-09-28] MEDS: acetaZOLAMIDE IV 500mg inj IV SCH (08:00)
[2021-09-28] MEDS: lactobacillus rhamnosus 10,000 MMU CELLS/CAPSULE OGT SCH ×2 (08:02→19:28)
[2021-09-28] MEDS: pantoprazole 40MG/NS 100ML BAG 100 ML IV SCH (08:02)
[2021-09-28] MEDS: enoxaparin 40mg/0.4ml syringe SQ SCH ×2 (08:02→19:33)
[2021-09-28] MEDS: predniSONE 5mg tablet OGT SCH (08:03)
[2021-09-28] MEDS: potassium Cl 20 mEq SR tablet PO SCH ×3 (08:03→20:05)
[2021-09-28] MEDS: ALPRAZolam 0.5mg tablet PO SCH ×3 (08:03→23:20)
[2021-09-28] MEDS: nystatin 15 GM powder TP SCH ×3 (08:04→20:05)
[2021-09-28] MEDS: MINOCYCLINE HCL IV SCH ×2 (08:12→19:28)
[2021-09-28] MEDS: NS IV SCH ×2 (08:12→19:28)
--- NOTE | 2021-09-28 09:42 | NUR ---
Reassessment: Pt remains intubated and tolerating TF at goal rate with GRV WNL. Per EMR no changes to Propofol rate at this time therefore no TF adjustments warranted at this time. Noted serum Na slightly low this morning, pt not receiving water flushes with TF. LBM 09/23 though per RN note 09/28 pt having stool output from RT however no documentation of stool output in I&O. Pt continues receiving routine bowel care with additional PRN bowel care available. Will continue to follow. Recommendations: 1) While pt on current Propofol 13.56ml/hr; Continuous TF using Vital AF with goal rate of 80mL/hr to provide 1920mL total volume/day, 2304 kcal, 144g protein, and 1555mL water 2) IF off Propofol; advance TF using Vital AF with goal rate of 85 mL/hr to provide 2040 mL total volume/day, 2448 kcal, 153 g protein, and 1654 mL water 3) No water flush at this time per MD; monitor serum Na 4) Prealbumin q Thursday/ 5) Daily scaled weights 6) Routine bowel care; utilize PRN bowel care 7) DM education once stable following extubation and official DM dx by physician; A1c 10.1% with no PMH DM in EMR Addendum: 09/28/21 at [address] Amended: Links added.
--- NOTE | 2021-09-28 12:08 | NUR ---
pt with vss, remains on 60%, peep of 12. continued large urine output from lasix and diamox. update to brother at bedside
[2021-09-28] MEDS: insulin glargine (Lantus) pen - multi-dose SQ SCH (20:10)
[2021-09-29] VITALS (28 sets, daily range): BP systolic 90–121; BP diastolic 48–75
[2021-09-29] MEDS: midazolam 100mg in NS 100ml 100 ML IV PRN ×5 (02:17→22:31)
[2021-09-29] MEDS: mineral oil/petrolatum ophthal oint EACHEYE SCH ×4 (02:17→19:40)
[2021-09-29 02:18] LABS: BASOPHILS # (AUTO) 0.1 X10'3 (0-0.2); BASOPHILS % (AUTO) 1.3 % (0-1); EOSINOPHILS # (AUTO) 0.7 X10'3 (0-0.9); EOSINOPHILS % (AUTO) 7.4 % (0-6); HEMATOCRIT 31.5 % (42.0-52.0); HEMOGLOBIN 10.2 g/dl (14.0-17.9); LYMPHOCYTES # (AUTO) 0.8 X10'3 (1.1-4.8); LYMPHOCYTES % (AUTO) 7.9 % (21-51); MEAN CORPUSCULAR HEMOGLOBIN 27.6 PG (27.0-31.0); MEAN CORPUSCULAR HGB CONC 32.3 g/dL (33.0-36.5); MEAN CORPUSCULAR VOLUME 85.4 FL (78-98); MEAN PLATELET VOLUME 7.7 FL (7.4-10.4); MONOCYTES # (AUTO) 0.8 X10'3 (0-0.9); MONOCYTES % (AUTO) 7.9 % (2-12); NEUTROPHILS # (AUTO) 7.6 X10'3 (1.8-7.7); NEUTROPHILS % (AUTO) 75.5 % (42-75); PLATELET COUNT 329 X10'3 (140-440); RED BLOOD COUNT 3.69 X10'6 (4.70-6.10); RED CELL DISTRIBUTION WIDTH 18.6 % (11.5-14.5)
[2021-09-29 02:26] LABS: D-DIMER 1.22 MG/L FEU (0-0.50)
[2021-09-29 02:29] LABS: C-REACTIVE PROTEIN 4.52 MG/DL (0.0-0.5)
--- NOTE | 2021-09-29 03:00 | NUR ---
35 yo male, admitted 07/23/2021, day 67 of hospitalization, DNR, NDA, no isolation, no restraints. Initially pt was seen 07/10/2021 in ER for COVID symptoms for 8 days prior to the first ER visit. 07/23/2021 pt return to ER for increased SOB, placed BiPAP admission to ICU. 07/24/2021 pt was emergently intubated. 07/30/2021 pt placed on Rotoprone bed. 08/09/2021 Right pneumo- chest tube placed. 08/10/2021 left TENSION Pneumo- chest tube placed . 08/22/2021 GIB- Protonix gtt started . 08/26/2021 Left pneumo increased. 08/27/2021 Hgb dropped- blood transfusion. 08/29/2021 PICC Line placed HELEN. 09/05/2021 CT C/A/P and head. 09/08/2021 hgb low transfuse 1 unit PRBC, 09/15/2021 chest tubes discontinued, 09/16/2021 hgb low transfuse 1 unit PRBC, 09/20/2021 placed back on Rotoprone bed at 20:00. 09/21/2021 transfused 1 unit PRBC. 09/21/2021 transfused 1 unit PRBC's. 09/25/2021 CTA chest, chest tube placed. 09/25/2021 off Rotoprone bed. 09/25/2021 dialysis. Currently pt is afebrile 36.3 core, Pt is sedated with Fentanyl at 250 mcgs (25 ml's/hr), Versed 15 mg (15 ml's), Precedex at .7 mcg (18.88 ml's/hr), Propofol 20 mcgs (13.56 ml/hr). Pupils sluggish. Facial wounds from proning. HR 97 SR BP 106/65. Weak pulses, +2 generalized edema, notable facial edema. All IVF infusing via HELEN TL PICC Line. Dressing CDI, good blood return. Lovenox for DVT prophylaxis. Rt chest tube placed 09/25/2021 draining SS fluid, dressing CDI. Pt has been intubated for 66 days, intubated 07/24/2021. #8 ETT, 25 cm, VENT AC/ PC, rate 21, TV 665+/-, FIO2 50%, PEEP 12. Breath sounds, Coarse, diminished, equal, symmetrical. saturation 90-95%, no ETT secretions. Hypoactive bowel sounds, soft nontender non distended. OGT infusing Vital AF at 80 ml's hour. Rectal tube draining brown stool. Glucose checks Q 6 hours at level 5. Coverage with regular insulin and Lantus HS. IVPB Protonix for GI prophylaxis. Pt given Lasix 40 mg IV, draining dennis urine. Multiple skin issues, due to proning. Pt turned Q 2 hours. Pt remains safe, Continue to monitor. Remains on Bactrim and Minocycline. Addendum: 09/29/21 at 0400 by Isaac Camejo RN Mistake in entry: THIS PATIENT DID NOT HAVE DIALYSIS.
[2021-09-29 03:10] LABS: ABG BASE EXCESS 7.9 mmol/L (-2.0-2.0); ABG HCO3 33.8 mmol/L (22.0-26.0); ABG OXYGEN SATURATION 94.9 % (94-97); ABG PO2 (T) 78.2 mmHg (75.0-100.0); ALLEN'S TEST POSITIVE; FCOHb 0.8 % (0.0-3.9); FMetHb 0.4 % (0.0-1.5); FO2Hb 93.8 % (94-97); PATIENT TEMPERATURE 36.9; PEEP 12 cm H2O; RESPIRATORY RATE 14 b/min
[2021-09-29] MEDS: dexmedetomidine/D5W 100mL 100 ML IV SCH ×6 (03:37→22:31)
[2021-09-29] MEDS: TRIMETHOPRIM IV SCH ×3 (04:03→22:06)
[2021-09-29] MEDS: DEXTROSE IV SCH ×3 (04:03→22:06)
[2021-09-29] MEDS: WATER IV SCH ×3 (04:03→22:06)
[2021-09-29] MEDS: [UNRECOGNIZED DRUG - OTHER] IV SCH ×3 (04:03→22:06)
[2021-09-29] MEDS: fentaNYL/NS/PF 2,500 mcg/250mL 250 ML IV PRN (07:50)
[2021-09-29] MEDS: pantoprazole 40MG/NS 100ML BAG 100 ML IV SCH (07:57)
[2021-09-29] MEDS: furosemide 40mg/4ml inj IV SCH ×3 (07:57→23:44)
[2021-09-29] MEDS: ALPRAZolam 0.5mg tablet PO SCH ×3 (07:58→23:44)
[2021-09-29] MEDS: predniSONE 5mg tablet OGT SCH (07:58)
[2021-09-29] MEDS: docusate sodium 100mg/10ml UD cup OGT SCH (07:58)
[2021-09-29] MEDS: lactobacillus rhamnosus 10,000 MMU CELLS/CAPSULE OGT SCH ×2 (07:58→19:42)
[2021-09-29] MEDS: enoxaparin 40mg/0.4ml syringe SQ SCH ×2 (07:59→19:42)
[2021-09-29] MEDS: nystatin 15 GM powder TP SCH ×3 (08:00→19:44)
[2021-09-29] MEDS ORDERED: POTASSIUM BICARBONATE/CIT AC 10 MEQ TABLET.EFF PO SCH (08:07)
[2021-09-29] MEDS: NS IV SCH ×2 (08:24→19:40)
[2021-09-29] MEDS: MINOCYCLINE HCL IV SCH ×2 (08:24→19:40)
[2021-09-29 08:49] LABS: ALANINE AMINOTRANSFERASE 27 U/L (12-78); ALBUMIN 2.5 G/DL (3.4-5.0); ALBUMIN/GLOBULIN RATIO 0.8 (1.1-1.5); ALKALINE PHOSPHATASE 345 IU/L (46-116); ANION GAP 6 (8-16); BILIRUBIN,TOTAL 0.3 MG/DL (0.1-1.0); BLOOD UREA NITROGEN 15 MG/DL (7-18); BUN/CREATININE RATIO 55.6 (5.4-32.0); CALCIUM 8.1 MG/DL (8.5-10.1); CHLORIDE 92 MMOL/L (99-107); CREATININE 0.27 MG/DL (0.60-1.10); POTASSIUM 3.7 MMOL/L (3.5-5.1); SODIUM 129 MMOL/L (135-145); TOTAL CARBON DIOXIDE 30.6 MMOL/L (24-32); TOTAL PROTEIN 5.8 G/DL (6.4-8.2); eGFR > 90 ML/MIN
[2021-09-29 08:50] LABS: GLUCOSE 227 MG/DL (70-104)
[2021-09-29 09:29] LABS: ASPARTATE AMINO TRANSFERASE 13 U/L (10-37)
[2021-09-29] MEDS: insulin regular, human U-100 3ml vial - multi-dose SQ SCH ×3 (09:55→23:35)
[2021-09-29] MEDS: propofol 1000mg/100ml bottle 100 ML IV SCH ×3 (11:19→22:30)
--- NOTE | 2021-09-29 18:23 | NUR ---
Problems reprioritized. Patient report given, questions answered & plan of care reviewed with Jonathan BOWEN.
[2021-09-29] MEDS: POTASSIUM BICARBONATE/CIT AC 10 MEQ TABLET.EFF PO SCH (19:44)
[2021-09-29] MEDS: insulin glargine (Lantus) pen - multi-dose SQ SCH (21:00)
[2021-09-30] VITALS (32 sets, daily range): BP systolic 88–130; BP diastolic 48–81
[2021-09-30] MEDS: mineral oil/petrolatum ophthal oint EACHEYE SCH ×4 (02:11→19:28)
[2021-09-30] MEDS: propofol 1000mg/100ml bottle 100 ML IV SCH ×5 (02:19→23:38)
[2021-09-30] MEDS: dexmedetomidine/D5W 100mL 100 ML IV SCH ×7 (02:20→23:36)
[2021-09-30 03:01] LABS: D-DIMER 1.72 MG/L FEU (0-0.50)
[2021-09-30 03:03] LABS: BASOPHILS # (AUTO) 0.1 X10'3 (0-0.2); BASOPHILS % (AUTO) 1.4 % (0-1); EOSINOPHILS # (AUTO) 0.8 X10'3 (0-0.9); EOSINOPHILS % (AUTO) 10.9 % (0-6); HEMATOCRIT 30.2 % (42.0-52.0); HEMOGLOBIN 9.8 g/dl (14.0-17.9); MEAN CORPUSCULAR HEMOGLOBIN 27.6 PG (27.0-31.0); MEAN CORPUSCULAR HGB CONC 32.6 g/dL (33.0-36.5); MEAN CORPUSCULAR VOLUME 84.9 FL (78-98); MONOCYTES # (AUTO) 0.7 X10'3 (0-0.9); MONOCYTES % (AUTO) 9.7 % (2-12); NEUTROPHILS # (AUTO) 4.4 X10'3 (1.8-7.7); PLATELET COUNT 301 X10'3 (140-440); RED BLOOD COUNT 3.56 X10'6 (4.70-6.10); RED CELL DISTRIBUTION WIDTH 19.2 % (11.5-14.5); WHITE BLOOD COUNT 6.9 X10'3 (4.5-11.0)
[2021-09-30 03:13] LABS: ABG BASE EXCESS 9.7 mmol/L (-2.0-2.0); ABG HCO3 36.3 mmol/L (22.0-26.0); ABG OXYGEN SATURATION 95.2 % (94-97); ABG PCO2 (T) 56.5 mmHg (35.0-48.0); ABG PO2 (T) 73.6 mmHg (75.0-100.0); ALLEN'S TEST POSITIVE; FCOHb 0.6 % (0.0-3.9); FMetHb 0.3 % (0.0-1.5); FO2Hb 94.3 % (94-97); PATIENT TEMPERATURE 35.7; PEEP 12 cm H2O; RESPIRATORY RATE 14 b/min; TOTAL HEMOGLOBIN 11.1 G/dl (14.0-18.0)
[2021-09-30 03:24] LABS: ALBUMIN 2.7 G/DL (3.4-5.0); ANION GAP 4 (8-16); BLOOD UREA NITROGEN 16 MG/DL (7-18); C-REACTIVE PROTEIN 4.22 MG/DL (0.0-0.5); CHLORIDE 93 MMOL/L (99-107); GLUCOSE 84 MG/DL (70-104); LACTATE DEHYDROGENASE 168 U/L (85-227); MAGNESIUM 1.6 MG/DL (1.5-2.4); PHOSPHORUS 5.2 MG/DL (2.3-4.5); PREALBUMIN 39.4 MG/DL (19-36); SODIUM 133 MMOL/L (135-145); TOTAL CARBON DIOXIDE 35.6 MMOL/L (24-32); TRIGLYCERIDES 63 MG/DL (20-135); eGFR > 90 ML/MIN
[2021-09-30] MEDS: fentaNYL/NS/PF 2,500 mcg/250mL 250 ML IV PRN ×2 (04:20→15:54)
[2021-09-30] MEDS: WATER IV SCH ×3 (04:21→19:29)
[2021-09-30] MEDS: DEXTROSE IV SCH ×3 (04:21→19:29)
[2021-09-30] MEDS: TRIMETHOPRIM IV SCH ×3 (04:21→19:29)
[2021-09-30] MEDS: [UNRECOGNIZED DRUG - OTHER] IV SCH ×3 (04:21→19:29)
--- NOTE | 2021-09-30 06:27 | NUR ---
Patient in room CICU 2008. I have received report from Jonathan BOWEN and had the opportunity to ask questions and assume patient care.
[2021-09-30] MEDS: pantoprazole 40MG/NS 100ML BAG 100 ML IV SCH (08:02)
[2021-09-30] MEDS: enoxaparin 40mg/0.4ml syringe SQ SCH ×2 (08:03→19:32)
[2021-09-30] MEDS: lactobacillus rhamnosus 10,000 MMU CELLS/CAPSULE OGT SCH ×2 (08:04→19:31)
[2021-09-30] MEDS: docusate sodium 100mg/10ml UD cup OGT SCH (08:04)
[2021-09-30] MEDS: ferrous sulfate 325mg tablet PO SCH (08:04)
[2021-09-30] MEDS: MINOCYCLINE HCL IV SCH ×2 (08:04→19:41)
[2021-09-30] MEDS: NS IV SCH ×2 (08:04→19:41)
[2021-09-30] MEDS: furosemide 40mg/4ml inj IV SCH ×2 (08:05→19:29)
[2021-09-30] MEDS: ALPRAZolam 0.5mg tablet PO SCH ×3 (08:05→23:16)
[2021-09-30] MEDS: predniSONE 5mg tablet OGT SCH (08:05)
[2021-09-30] MEDS: POTASSIUM BICARBONATE/CIT AC 10 MEQ TABLET.EFF PO SCH ×3 (08:05→19:33)
[2021-09-30] MEDS: nystatin 15 GM powder TP SCH ×3 (08:06→19:33)
[2021-09-30] MEDS: insulin regular, human U-100 3ml vial - multi-dose SQ SCH ×2 (09:12→21:59)
[2021-09-30] MEDS: midazolam 100mg in NS 100ml 100 ML IV PRN ×4 (12:06→23:37)
[2021-09-30] MEDS ORDERED: iohexol 300mg/ml 100ml inj. ONE (13:09)
--- NOTE | 2021-09-30 15:00 | NUR ---
Informed Dr. Boyer of CT results, looked at imaging and called IR to have left chest tube placed under CT guidance. spoke with Dr. Childress regarding CT results.
[2021-09-30] MEDS ORDERED: LIDOcaine 1% (10mg/ml) 2ml vial ONE (17:16)
--- NOTE | 2021-09-30 18:13 | NUR ---
Problems reprioritized. Patient report given, questions answered & plan of care reviewed with Jonathan BOWEN.
[2021-09-30] MEDS: insulin glargine (Lantus) pen - multi-dose SQ SCH (21:57)
[2021-09-30] MEDS ORDERED: diatr meglu/diatrizoate 30ml oral sol.-(3 dose) bottle NG ONE (22:00)
[2021-10-01] VITALS (33 sets, daily range): BP systolic 92–115; BP diastolic 42–71
[2021-10-01] MEDS: mineral oil/petrolatum ophthal oint EACHEYE SCH ×4 (02:19→19:10)
[2021-10-01] MEDS: fentaNYL/NS/PF 2,500 mcg/250mL 250 ML IV PRN ×3 (02:20→23:54)
[2021-10-01 03:27] LABS: BASOPHILS # (AUTO) 0.1 X10'3 (0-0.2); BASOPHILS % (AUTO) 1.3 % (0-1); EOSINOPHILS # (AUTO) 0.7 X10'3 (0-0.9); HEMATOCRIT 30.4 % (42.0-52.0); HEMOGLOBIN 9.8 g/dl (14.0-17.9); LYMPHOCYTES # (AUTO) 0.7 X10'3 (1.1-4.8); LYMPHOCYTES % (AUTO) 10.4 % (21-51); MEAN CORPUSCULAR HEMOGLOBIN 27.3 PG (27.0-31.0); MEAN CORPUSCULAR HGB CONC 32.1 g/dL (33.0-36.5); MEAN CORPUSCULAR VOLUME 85.1 FL (78-98); MEAN PLATELET VOLUME 8.2 FL (7.4-10.4); MONOCYTES # (AUTO) 0.7 X10'3 (0-0.9); NEUTROPHILS % (AUTO) 69.3 % (42-75); PLATELET COUNT 275 X10'3 (140-440); RED BLOOD COUNT 3.57 X10'6 (4.70-6.10); RED CELL DISTRIBUTION WIDTH 18.9 % (11.5-14.5); WHITE BLOOD COUNT 7.2 X10'3 (4.5-11.0)
[2021-10-01 03:40] LABS: D-DIMER 1.25 MG/L FEU (0-0.50)
[2021-10-01 03:42] LABS: ALBUMIN 2.7 G/DL (3.4-5.0); ANION GAP 3 (8-16); BLOOD UREA NITROGEN 13 MG/DL (7-18); C-REACTIVE PROTEIN 4.83 MG/DL (0.0-0.5); CALCIUM 9.2 MG/DL (8.5-10.1); CHLORIDE 94 MMOL/L (99-107); CREATININE 0.04 MG/DL (0.60-1.10); LACTATE DEHYDROGENASE 187 U/L (85-227); MAGNESIUM 1.8 MG/DL (1.5-2.4); POTASSIUM 4.3 MMOL/L (3.5-5.1); SODIUM 135 MMOL/L (135-145); eGFR > 90 ML/MIN
[2021-10-01 03:49] LABS: GLUCOSE 41 MG/DL (70-104)
[2021-10-01] MEDS: dextrose 50%-water 50ml dispensing syringe IV PRN (03:59)
[2021-10-01] MEDS: DEXTROSE IV SCH ×3 (03:59→21:02)
[2021-10-01] MEDS: [UNRECOGNIZED DRUG - OTHER] IV SCH ×3 (03:59→21:02)
[2021-10-01] MEDS: WATER IV SCH ×3 (03:59→21:02)
[2021-10-01] MEDS: TRIMETHOPRIM IV SCH ×3 (03:59→21:02)
[2021-10-01 04:39] LABS: PLATELET ESTIMATE NORMAL
[2021-10-01 04:40] LABS: ANISOCYTOSIS 2+; LARGE PLATELETS FEW; TEAR DROP CELLS FEW
--- NOTE | 2021-10-01 06:55 | NUR ---
Patient in room CICU 2008. I have received report from Jonathan BOWEN and had the opportunity to ask questions and assume patient care.
[2021-10-01] MEDS: dexmedetomidine/D5W 100mL 100 ML IV SCH ×5 (06:58→20:53)
[2021-10-01 07:25] LABS: ABG BASE EXCESS 11.2 mmol/L (-2.0-2.0); ABG OXYGEN SATURATION 94.3 % (94-97); ABG PO2 (T) 72.7 mmHg (75.0-100.0); ALLEN'S TEST Yes; FCOHb 0.7 % (0.0-3.9); FMetHb 0.2 % (0.0-1.5); FO2Hb 93.5 % (94-97); PATIENT TEMPERATURE 36.7; PEEP 12 cm H2O; RESPIRATORY RATE 14 b/min; TOTAL HEMOGLOBIN 10.9 G/dl (14.0-18.0)
[2021-10-01] MEDS: docusate sodium 100mg/10ml UD cup OGT SCH (07:30)
[2021-10-01] MEDS: predniSONE 5mg tablet OGT SCH (07:30)
[2021-10-01] MEDS: lactobacillus rhamnosus 10,000 MMU CELLS/CAPSULE OGT SCH ×2 (07:30→20:23)
[2021-10-01] MEDS: ferrous sulfate 325mg tablet PO SCH (07:30)
[2021-10-01] MEDS: POTASSIUM BICARBONATE/CIT AC 10 MEQ TABLET.EFF PO SCH ×3 (07:30→20:23)
[2021-10-01] MEDS: enoxaparin 40mg/0.4ml syringe SQ SCH (07:31)
[2021-10-01] MEDS: ALPRAZolam 0.5mg tablet PO SCH ×3 (07:31→23:32)
[2021-10-01] MEDS: pantoprazole 40MG/NS 100ML BAG 100 ML IV SCH (07:49)
[2021-10-01] MEDS: NS IV SCH ×2 (07:49→20:24)
[2021-10-01] MEDS: MINOCYCLINE HCL IV SCH ×2 (07:49→20:24)
[2021-10-01] MEDS: furosemide 40mg/4ml inj IV SCH ×2 (07:49→20:24)
[2021-10-01] MEDS: nystatin 15 GM powder TP SCH ×3 (07:50→20:25)
[2021-10-01 09:17] LABS: RESPIRATORY RATE (OBSERVED) 19 b/min
[2021-10-01 09:18] LABS: MINUTE VOLUME 9.3 L/min
[2021-10-01] MEDS: insulin regular, human U-100 3ml vial - multi-dose SQ SCH ×2 (10:21→14:14)
[2021-10-01] MEDS: midazolam 100mg in NS 100ml 100 ML IV PRN ×3 (10:25→23:35)
[2021-10-01] MEDS: propofol 1000mg/100ml bottle 100 ML IV SCH ×3 (12:57→23:54)
[2021-10-01] MEDS: sevelamer carbonate 0.8gm powder pkt OGT SCH ×2 (13:16→18:08)
--- NOTE | 2021-10-01 18:23 | NUR ---
Problems reprioritized. Patient report given, questions answered & plan of care reviewed with Lul RN.
[2021-10-01] MEDS: insulin glargine (Lantus) pen - multi-dose SQ SCH (21:00)
[2021-10-02] VITALS (34 sets, daily range): BP systolic 83–115; BP diastolic 38–70
[2021-10-02] MEDS: dexmedetomidine/D5W 100mL 100 ML IV SCH ×6 (00:15→18:35)
--- NOTE | 2021-10-02 00:52 | NUR ---
Patient npo as of midnight for procedure 10/02/2021.
[2021-10-02] MEDS: mineral oil/petrolatum ophthal oint EACHEYE SCH ×4 (01:28→20:00)
[2021-10-02 01:51] LABS: ABG BASE EXCESS 10.2 mmol/L (-2.0-2.0); ABG HCO3 37.9 mmol/L (22.0-26.0); ABG PCO2 (T) 68.8 mmHg (35.0-48.0); ABG PO2 (T) 118.1 mmHg (75.0-100.0); ALLEN'S TEST POSITIVE; FCOHb 0.3 % (0.0-3.9); FMetHb 0.3 % (0.0-1.5); FO2Hb 97.4 % (94-97); PATIENT TEMPERATURE 36.7; PEEP 8 cm H2O; RESPIRATORY RATE 14 b/min; TIDAL VOLUME 14 mL; TOTAL HEMOGLOBIN 10.7 G/dl (14.0-18.0)
[2021-10-02 02:48] LABS: D-DIMER 1.16 MG/L FEU (0-0.50)
[2021-10-02 03:03] LABS: C-REACTIVE PROTEIN 3.64 MG/DL (0.0-0.5); LACTATE DEHYDROGENASE 163 U/L (85-227)
[2021-10-02 03:18] LABS: BASOPHILS # (AUTO) 0.1 X10'3 (0-0.2); BASOPHILS % (AUTO) 1.2 % (0-1); EOSINOPHILS # (AUTO) 0.7 X10'3 (0-0.9); EOSINOPHILS % (AUTO) 10.2 % (0-6); HEMATOCRIT 28.2 % (42.0-52.0); HEMOGLOBIN 9.4 g/dl (14.0-17.9); LYMPHOCYTES # (AUTO) 0.7 X10'3 (1.1-4.8); LYMPHOCYTES % (AUTO) 10.4 % (21-51); MEAN CORPUSCULAR HEMOGLOBIN 28.3 PG (27.0-31.0); MEAN CORPUSCULAR HGB CONC 33.2 g/dL (33.0-36.5); MEAN CORPUSCULAR VOLUME 85.2 FL (78-98); MEAN PLATELET VOLUME 8.5 FL (7.4-10.4); MONOCYTES # (AUTO) 0.7 X10'3 (0-0.9); MONOCYTES % (AUTO) 9.6 % (2-12); NEUTROPHILS # (AUTO) 4.7 X10'3 (1.8-7.7); NEUTROPHILS % (AUTO) 68.6 % (42-75); PLATELET COUNT 257 X10'3 (140-440); RED BLOOD COUNT 3.31 X10'6 (4.70-6.10); RED CELL DISTRIBUTION WIDTH 19.2 % (11.5-14.5); WHITE BLOOD COUNT 6.9 X10'3 (4.5-11.0)
[2021-10-02 03:23] LABS: ALBUMIN 2.4 G/DL (3.4-5.0); ANION GAP 3 (8-16); BLOOD UREA NITROGEN 11 MG/DL (7-18); CALCIUM 8.5 MG/DL (8.5-10.1); CHLORIDE 92 MMOL/L (99-107); POTASSIUM 4.3 MMOL/L (3.5-5.1); SODIUM 131 MMOL/L (135-145); eGFR > 90 ML/MIN
[2021-10-02 03:28] LABS: GLUCOSE 174 MG/DL (70-104)
[2021-10-02] MEDS: [UNRECOGNIZED DRUG - OTHER] IV SCH ×3 (03:39→21:35)
[2021-10-02] MEDS: WATER IV SCH ×3 (03:39→21:35)
[2021-10-02] MEDS: DEXTROSE IV SCH ×3 (03:39→21:35)
[2021-10-02] MEDS: TRIMETHOPRIM IV SCH ×3 (03:39→21:35)
[2021-10-02] MEDS: propofol 1000mg/100ml bottle 100 ML IV SCH ×6 (04:58→21:19)
--- NOTE | 2021-10-02 05:53 | NUR ---
Problems reprioritized. Patient report given, questions answered & plan of care reviewed with ANDRÉS Glez
[2021-10-02] MEDS: midazolam 100mg in NS 100ml 100 ML IV PRN ×3 (06:15→18:12)
[2021-10-02] MEDS: predniSONE 5mg tablet OGT SCH (08:00)
[2021-10-02] MEDS: lactobacillus rhamnosus 10,000 MMU CELLS/CAPSULE OGT SCH ×2 (08:00→21:34)
[2021-10-02] MEDS: docusate sodium 100mg/10ml UD cup OGT SCH (08:00)
[2021-10-02] MEDS: nystatin 15 GM powder TP SCH ×3 (08:00→21:36)
[2021-10-02] MEDS: ALPRAZolam 0.5mg tablet PO SCH ×3 (08:00→23:02)
[2021-10-02] MEDS: sevelamer carbonate 0.8gm powder pkt OGT SCH ×3 (08:00→18:00)
[2021-10-02] MEDS: POTASSIUM BICARBONATE/CIT AC 10 MEQ TABLET.EFF PO SCH ×3 (08:00→21:34)
[2021-10-02] MEDS: ferrous sulfate 325mg tablet PO SCH (08:00)
[2021-10-02] MEDS: furosemide 40mg/4ml inj IV SCH ×2 (09:04→20:00)
[2021-10-02] MEDS: pantoprazole 40MG/NS 100ML BAG 100 ML IV SCH (09:04)
[2021-10-02] MEDS ORDERED: ceFAZolin/D5W- 1GM premix 50 ML IV ONE (12:20)
[2021-10-02] MEDS: fentaNYL/NS/PF 2,500 mcg/250mL 250 ML IV PRN ×2 (13:00→22:54)
[2021-10-02] MEDS ORDERED: albumin (Human) 5% 250ml BOTTLE IV ONE (13:32)
[2021-10-02] MEDS ORDERED: sevoflurane 250ml liquid IH ONE (13:32)
[2021-10-02] MEDS ORDERED: albumin (Human) 5% 250ml 250 ML IV ONE (15:06)
--- NOTE | 2021-10-02 15:12 | NUR ---
Reassessment: Pt remains intubated, NPO at this time pending trach and PEG placement. Per EMR Propofol rate running at 20.34 mL/hr providing 537 kcal/day. TF recommendations will need to be adjusted once TF to resume IF Propofol to remain at current rate. LBM 09/30 documented with only 60 mL stool output per I&O. Pt continues receiving routine bowel care with PRN bowel care available though meds held at this time d/t NPO status. Will continue to follow closely. Recommendations: 1) While pt on current Propofol 13.56ml/hr; Continuous TF using Vital AF with goal rate of 80mL/hr to provide 1920mL total volume/day, 2304 kcal, 144g protein, and 1555mL water 2) IF off Propofol; advance TF using Vital AF with goal rate of 85 mL/hr to provide 2040 mL total volume/day, 2448 kcal, 153 g protein, and 1654 mL water 3) Monitor Propofol rate and need to adjust TF recs 4) No water flush at this time per MD; monitor serum Na 5) Prealbumin q Thursday/ 6) Daily scaled weights 7) Routine bowel care; utilize PRN bowel care 8) DM education once stable following extubation and official DM dx by physician; A1c 10.1% with no PMH DM in EMR Addendum: 10/02/21 at [address] Amended: Links added.
[2021-10-02] MEDS: insulin glargine (Lantus) pen - multi-dose SQ SCH (21:00)
[2021-10-02] MEDS: polyethylene glycol 3350 17gm powd pack OGT PRN (21:34)
[2021-10-03] VITALS (31 sets, daily range): BP systolic 86–112; BP diastolic 44–73
[2021-10-03] MEDS: mineral oil/petrolatum ophthal oint EACHEYE SCH ×4 (01:14→20:00)
[2021-10-03] MEDS: propofol 1000mg/100ml bottle 100 ML IV SCH ×5 (01:19→20:01)
[2021-10-03] MEDS: midazolam 100mg in NS 100ml 100 ML IV PRN ×3 (01:19→18:46)
[2021-10-03] MEDS: dexmedetomidine/D5W 100mL 100 ML IV SCH ×7 (02:31→21:22)
[2021-10-03 03:21] LABS: BASOPHILS # (AUTO) 0.1 X10'3 (0-0.2); BASOPHILS % (AUTO) 1.4 % (0-1); EOSINOPHILS # (AUTO) 0.5 X10'3 (0-0.9); EOSINOPHILS % (AUTO) 9.9 % (0-6); HEMATOCRIT 27.2 % (42.0-52.0); HEMOGLOBIN 9.1 g/dl (14.0-17.9); LYMPHOCYTES # (AUTO) 0.7 X10'3 (1.1-4.8); LYMPHOCYTES % (AUTO) 14.3 % (21-51); MEAN CORPUSCULAR HEMOGLOBIN 28.3 PG (27.0-31.0); MEAN CORPUSCULAR HGB CONC 33.3 g/dL (33.0-36.5); MEAN PLATELET VOLUME 8.6 FL (7.4-10.4); MONOCYTES # (AUTO) 0.5 X10'3 (0-0.9); MONOCYTES % (AUTO) 10.7 % (2-12); NEUTROPHILS # (AUTO) 3.3 X10'3 (1.8-7.7); NEUTROPHILS % (AUTO) 63.7 % (42-75); PLATELET COUNT 263 X10'3 (140-440); RED CELL DISTRIBUTION WIDTH 18.6 % (11.5-14.5); WHITE BLOOD COUNT 5.1 X10'3 (4.5-11.0)
[2021-10-03] MEDS: DEXTROSE IV SCH ×3 (03:21→20:00)
[2021-10-03] MEDS: WATER IV SCH ×3 (03:21→20:00)
[2021-10-03] MEDS: TRIMETHOPRIM IV SCH ×3 (03:21→20:00)
[2021-10-03] MEDS: [UNRECOGNIZED DRUG - OTHER] IV SCH ×3 (03:21→20:00)
[2021-10-03 03:33] LABS: D-DIMER 1.04 MG/L FEU (0-0.50)
[2021-10-03 03:34] LABS: ALBUMIN 2.5 G/DL (3.4-5.0); ANION GAP 0 (8-16); BLOOD UREA NITROGEN 6 MG/DL (7-18); BUN/CREATININE RATIO 31.6 (5.4-32.0); C-REACTIVE PROTEIN 4.52 MG/DL (0.0-0.5); CALCIUM 8.8 MG/DL (8.5-10.1); CHLORIDE 93 MMOL/L (99-107); CREATININE 0.19 MG/DL (0.60-1.10); GLUCOSE 173 MG/DL (70-104); LACTATE DEHYDROGENASE 159 U/L (85-227); MAGNESIUM 1.5 MG/DL (1.5-2.4); POTASSIUM 3.7 MMOL/L (3.5-5.1); SODIUM 133 MMOL/L (135-145); eGFR > 90 ML/MIN
[2021-10-03 03:43] LABS: ABG HCO3 43.1 mmol/L (22.0-26.0); ABG OXYGEN SATURATION 96.3 % (94-97); ABG PCO2 (T) 66.4 mmHg (35.0-48.0); ABG PO2 (T) 86.4 mmHg (75.0-100.0); ALLEN'S TEST POSITIVE; FCOHb 0.4 % (0.0-3.9); FMetHb 0.3 % (0.0-1.5); FO2Hb 95.6 % (94-97); PATIENT TEMPERATURE 36.5; PEEP 8 cm H2O; RESPIRATORY RATE 16 b/min; TOTAL HEMOGLOBIN 10.5 G/dl (14.0-18.0)
[2021-10-03 03:53] LABS: TOTAL CARBON DIOXIDE 40.2 MMOL/L (24-32)
[2021-10-03 03:56] LABS: PREALBUMIN 30.3 MG/DL (19-36)
[2021-10-03 04:38] LABS: PLATELET ESTIMATE NORMAL
[2021-10-03 04:40] LABS: ANISOCYTOSIS 2+; POLYCHROMASIA FEW; TEAR DROP CELLS FEW
--- NOTE | 2021-10-03 06:07 | NUR ---
Problems reprioritized. Patient report given, questions answered & plan of care reviewed with ANDRÉS Glez
[2021-10-03] MEDS: predniSONE 5mg tablet OGT SCH (07:47)
[2021-10-03] MEDS: lactobacillus rhamnosus 10,000 MMU CELLS/CAPSULE OGT SCH ×2 (07:47→21:12)
[2021-10-03] MEDS: ALPRAZolam 0.5mg tablet PO SCH ×2 (07:47→15:46)
[2021-10-03] MEDS: pantoprazole 40MG/NS 100ML BAG 100 ML IV SCH (07:47)
[2021-10-03] MEDS: furosemide 40mg/4ml inj IV SCH (07:47)
[2021-10-03] MEDS: ferrous sulfate 325mg tablet PO SCH (07:47)
[2021-10-03] MEDS: POTASSIUM BICARBONATE/CIT AC 10 MEQ TABLET.EFF PO SCH ×3 (07:47→21:15)
[2021-10-03] MEDS: sevelamer carbonate 0.8gm powder pkt OGT SCH ×3 (08:00→15:46)
[2021-10-03] MEDS: docusate sodium 100mg/10ml UD cup OGT SCH (08:28)
[2021-10-03] MEDS: nystatin 15 GM powder TP SCH ×3 (08:28→21:15)
[2021-10-03] MEDS: enoxaparin 40mg/0.4ml syringe SQ SCH ×2 (08:30→21:14)
[2021-10-03] MEDS: fentaNYL/NS/PF 2,500 mcg/250mL 250 ML IV PRN ×2 (09:15→20:00)
[2021-10-03] MEDS ORDERED: amiodarone/D5 360MG/200ML BAG 200 ML IV ONE (10:23)
[2021-10-03] MEDS ORDERED: multivitamins, therapeutics tablet PO SCH (11:44)
[2021-10-03] MEDS: multivitamins, therapeutics tablet PO SCH (11:44)
[2021-10-03] MEDS: zinc sulfate 220mg capsule PO SCH ×2 (12:29→21:12)
[2021-10-03] MEDS: oxyCODONE IR 5mg (immed. release) tablet PEG SCH ×3 (12:29→21:14)
[2021-10-03] MEDS: insulin glargine (Lantus) pen - multi-dose SQ SCH (21:00)
[2021-10-03] MEDS: LORazepam 1 MG tablet OGT PRN (21:13)
[2021-10-03] MEDS: polyethylene glycol 3350 17gm powd pack OGT PRN (21:14)
[2021-10-03] MEDS ORDERED: POTASSIUM BICARBONATE/CIT AC 10 MEQ TABLET.EFF OGT SCH (22:55)
[2021-10-04] VITALS (25 sets, daily range): BP systolic 88–135; BP diastolic 51–91
[2021-10-04] MEDS: ALPRAZolam 0.5mg tablet PO SCH ×3 (00:32→16:06)
[2021-10-04] MEDS: oxyCODONE IR 5mg (immed. release) tablet PEG SCH ×6 (00:32→20:38)
[2021-10-04] MEDS: dexmedetomidine/D5W 100mL 100 ML IV SCH ×7 (00:39→21:21)
[2021-10-04] MEDS: propofol 1000mg/100ml bottle 100 ML IV SCH ×5 (00:49→20:37)
[2021-10-04] MEDS: mineral oil/petrolatum ophthal oint EACHEYE SCH ×4 (01:44→20:39)
[2021-10-04 02:20] LABS: D-DIMER 1.01 MG/L FEU (0-0.50)
[2021-10-04 02:30] LABS: C-REACTIVE PROTEIN 6.12 MG/DL (0.0-0.5); LACTATE DEHYDROGENASE 167 U/L (85-227)
[2021-10-04] MEDS: TRIMETHOPRIM IV SCH ×3 (03:16→20:58)
[2021-10-04] MEDS: DEXTROSE IV SCH ×3 (03:16→20:58)
[2021-10-04] MEDS: [UNRECOGNIZED DRUG - OTHER] IV SCH ×3 (03:16→20:58)
[2021-10-04] MEDS: WATER IV SCH ×3 (03:16→20:58)
[2021-10-04 03:50] LABS: ABG BASE EXCESS 11.6 mmol/L (-2.0-2.0); ABG OXYGEN SATURATION 85.6 % (94-97); ABG PO2 (T) 50.2 mmHg (75.0-100.0); ALLEN'S TEST POSITIVE; FCOHb 1.4 % (0.0-3.9); FMetHb 0.1 % (0.0-1.5); FO2Hb 84.3 % (94-97); PATIENT TEMPERATURE 36.3; PEEP 8 cm H2O; RESPIRATORY RATE 14 b/min
--- NOTE | 2021-10-04 06:09 | NUR ---
Problems reprioritized. Patient report given, questions answered & plan of care reviewed with ANDRÉS Paulino
[2021-10-04 07:20] LABS: EOSINOPHILS # (AUTO) 0.4 X10'3 (0-0.9); MEAN PLATELET VOLUME 9.9 FL (7.4-10.4)
[2021-10-04 07:22] LABS: BASOPHILS # (AUTO) 0.1 X10'3 (0-0.2); BASOPHILS % (AUTO) 1.5 % (0-1); EOSINOPHILS % (AUTO) 4.9 % (0-6); HEMATOCRIT 27.3 % (42.0-52.0); LYMPHOCYTES # (AUTO) 0.7 X10'3 (1.1-4.8); LYMPHOCYTES % (AUTO) 8.7 % (21-51); MEAN CORPUSCULAR HEMOGLOBIN 28.2 PG (27.0-31.0); MEAN CORPUSCULAR HGB CONC 33.2 g/dL (33.0-36.5); MONOCYTES # (AUTO) 0.6 X10'3 (0-0.9); MONOCYTES % (AUTO) 8.3 % (2-12); NEUTROPHILS % (AUTO) 76.6 % (42-75); PLATELET COUNT 275 X10'3 (140-440); RED BLOOD COUNT 3.21 X10'6 (4.70-6.10); RED CELL DISTRIBUTION WIDTH 18.4 % (11.5-14.5); WHITE BLOOD COUNT 7.8 X10'3 (4.5-11.0)
[2021-10-04 07:39] LABS: ALANINE AMINOTRANSFERASE 19 U/L (12-78); ALBUMIN 2.7 G/DL (3.4-5.0); ALBUMIN/GLOBULIN RATIO 0.8 (1.1-1.5); ANION GAP 6 (8-16); ASPARTATE AMINO TRANSFERASE 15 U/L (10-37); BILIRUBIN,TOTAL 0.3 MG/DL (0.1-1.0); BLOOD UREA NITROGEN 4 MG/DL (7-18); BUN/CREATININE RATIO 16.7 (5.4-32.0); CALCIUM 9.1 MG/DL (8.5-10.1); CHLORIDE 94 MMOL/L (99-107); CREATININE 0.24 MG/DL (0.60-1.10); POTASSIUM 3.8 MMOL/L (3.5-5.1); SODIUM 133 MMOL/L (135-145); eGFR > 90 ML/MIN
[2021-10-04 07:51] LABS: GLUCOSE 206 MG/DL (70-104)
[2021-10-04] MEDS: lactobacillus rhamnosus 10,000 MMU CELLS/CAPSULE OGT SCH ×2 (07:52→20:39)
[2021-10-04] MEDS: enoxaparin 40mg/0.4ml syringe SQ SCH ×2 (07:52→20:38)
[2021-10-04] MEDS: sevelamer carbonate 0.8gm powder pkt OGT SCH ×3 (07:52→16:56)
[2021-10-04] MEDS: zinc sulfate 220mg capsule PO SCH ×3 (07:52→20:38)
[2021-10-04] MEDS: multivitamins, therapeutics tablet PO SCH (07:52)
[2021-10-04] MEDS: ferrous sulfate 325mg tablet PO SCH (07:53)
[2021-10-04] MEDS: docusate sodium 100mg/10ml UD cup OGT SCH (07:53)
[2021-10-04] MEDS: pantoprazole 40MG/NS 100ML BAG 100 ML IV SCH (07:53)
[2021-10-04] MEDS: nystatin 15 GM powder TP SCH ×3 (07:56→20:39)
[2021-10-04 08:57] LABS: ALKALINE PHOSPHATASE 195 IU/L (46-116); PLATELET ESTIMATE NORMAL; TOTAL CELLS COUNTED 100
[2021-10-04 08:59] LABS: ANISOCYTOSIS 2+; ELLIPTOCYTES 1+; HYPOCHROMASIA 1+
[2021-10-04 09:00] LABS: SCHISTOCYTES FEW; TEAR DROP CELLS 1+
[2021-10-04] MEDS ORDERED: POTASSIUM CHLORIDE 20 MEQ/15 ML oral solution OGT PRN ×2 (12:45→12:50)
[2021-10-04] MEDS: POTASSIUM CHLORIDE 20 MEQ/15 ML oral solution OGT SCH ×2 (13:03→20:39)
[2021-10-04] MEDS: fentaNYL/NS/PF 2,500 mcg/250mL 250 ML IV PRN (16:57)
--- NOTE | 2021-10-04 16:59 | NUR ---
Pt. tolerating Tube Feeding. Rate advanced from 20 mLs/hr to 40 mLs/hr @08:00. Adanced to 60 mLs/hr @16:00.
[2021-10-04] MEDS: polyethylene glycol 3350 17gm powd pack OGT PRN (20:39)
[2021-10-04] MEDS: LORazepam 1 MG tablet OGT PRN (20:39)
[2021-10-04] MEDS: insulin glargine (Lantus) pen - multi-dose SQ SCH (21:00)
[2021-10-04] MEDS: midazolam 100mg in NS 100ml 100 ML IV PRN (22:46)
[2021-10-05] VITALS (26 sets, daily range): BP systolic 88–135; BP diastolic 47–83
[2021-10-05] MEDS: dexmedetomidine/D5W 100mL 100 ML IV SCH ×7 (00:22→22:06)
[2021-10-05] MEDS: ALPRAZolam 0.5mg tablet PO SCH ×3 (00:47→16:11)
[2021-10-05] MEDS: oxyCODONE IR 5mg (immed. release) tablet PEG SCH ×6 (00:47→19:55)
[2021-10-05] MEDS: fentaNYL/NS/PF 2,500 mcg/250mL 250 ML IV PRN ×2 (01:57→18:17)
[2021-10-05] MEDS: propofol 1000mg/100ml bottle 100 ML IV SCH ×3 (01:58→22:08)
[2021-10-05] MEDS: mineral oil/petrolatum ophthal oint EACHEYE SCH ×4 (02:53→19:55)
[2021-10-05] MEDS: insulin regular, human U-100 3ml vial - multi-dose SQ SCH ×4 (02:58→20:20)
[2021-10-05 03:02] LABS: BASOPHILS # (AUTO) 0.1 X10'3 (0-0.2); BASOPHILS % (AUTO) 0.8 % (0-1); EOSINOPHILS % (AUTO) 0.4 % (0-6); HEMATOCRIT 31.2 % (42.0-52.0); HEMOGLOBIN 10.2 g/dl (14.0-17.9); LYMPHOCYTES # (AUTO) 0.5 X10'3 (1.1-4.8); LYMPHOCYTES % (AUTO) 4.7 % (21-51); MEAN CORPUSCULAR HEMOGLOBIN 27.9 PG (27.0-31.0); MEAN CORPUSCULAR HGB CONC 32.8 g/dL (33.0-36.5); MEAN PLATELET VOLUME 8.9 FL (7.4-10.4); MONOCYTES # (AUTO) 0.8 X10'3 (0-0.9); NEUTROPHILS # (AUTO) 8.8 X10'3 (1.8-7.7); NEUTROPHILS % (AUTO) 86.1 % (42-75); PLATELET COUNT 300 X10'3 (140-440); RED BLOOD COUNT 3.67 X10'6 (4.70-6.10); RED CELL DISTRIBUTION WIDTH 18.3 % (11.5-14.5); WHITE BLOOD COUNT 10.2 X10'3 (4.5-11.0)
[2021-10-05 03:16] LABS: D-DIMER 1.43 MG/L FEU (0-0.50)
[2021-10-05] MEDS: TRIMETHOPRIM IV SCH (03:39)
[2021-10-05] MEDS: WATER IV SCH (03:39)
[2021-10-05] MEDS: [UNRECOGNIZED DRUG - OTHER] IV SCH (03:39)
[2021-10-05] MEDS: DEXTROSE IV SCH (03:39)
[2021-10-05] MEDS: acetaminophen 325mg/10.15ml oral unit dose solution OGT PRN ×2 (03:39→20:02)
[2021-10-05 03:43] LABS: ABG BASE EXCESS 5.4 mmol/L (-2.0-2.0); ABG HCO3 30.6 mmol/L (22.0-26.0); ABG OXYGEN SATURATION 88.9 % (94-97); ABG PCO2 (T) 49.9 mmHg (35.0-48.0); ABG PO2 (T) 62.6 mmHg (75.0-100.0); ALLEN'S TEST POSITIVE; FCOHb 0.7 % (0.0-3.9); FMetHb 0.2 % (0.0-1.5); FO2Hb 88.1 % (94-97); PATIENT TEMPERATURE 38.1; PEEP 5 cm H2O; RESPIRATORY RATE 14 b/min; TOTAL HEMOGLOBIN 11.4 G/dl (14.0-18.0)
[2021-10-05 04:00] LABS: ALANINE AMINOTRANSFERASE 19 U/L (12-78); ALBUMIN 2.8 G/DL (3.4-5.0); ALBUMIN/GLOBULIN RATIO 0.8 (1.1-1.5); ALKALINE PHOSPHATASE 184 IU/L (46-116); ANION GAP 9 (8-16); BILIRUBIN,TOTAL 0.4 MG/DL (0.1-1.0); BLOOD UREA NITROGEN 3 MG/DL (7-18); C-REACTIVE PROTEIN 9.51 MG/DL (0.0-0.5); CALCIUM 8.7 MG/DL (8.5-10.1); CHLORIDE 97 MMOL/L (99-107); SODIUM 136 MMOL/L (135-145); TOTAL CARBON DIOXIDE 29.9 MMOL/L (24-32); TOTAL PROTEIN 6.2 G/DL (6.4-8.2); TRIGLYCERIDES 589 MG/DL (20-135); eGFR > 90 ML/MIN
[2021-10-05 04:15] LABS: ASPARTATE AMINO TRANSFERASE 22 U/L (10-37)
[2021-10-05 04:16] LABS: GLUCOSE 266 MG/DL (70-104); LACTATE DEHYDROGENASE 340 U/L (85-227); POTASSIUM 3.4 MMOL/L (3.5-5.1)
--- NOTE | 2021-10-05 06:09 | NUR ---
Problems reprioritized. Patient report given, questions answered & plan of care reviewed with ANDRÉS Paulino
[2021-10-05] MEDS: enoxaparin 40mg/0.4ml syringe SQ SCH ×2 (07:29→19:54)
[2021-10-05] MEDS: sevelamer carbonate 0.8gm powder pkt OGT SCH ×3 (07:29→18:00)
[2021-10-05] MEDS: nystatin 15 GM powder TP SCH ×3 (07:30→20:01)
[2021-10-05] MEDS: pantoprazole 40MG/NS 100ML BAG 100 ML IV SCH (07:30)
[2021-10-05] MEDS: zinc sulfate 220mg capsule PO SCH ×3 (07:31→20:01)
[2021-10-05] MEDS: lactobacillus rhamnosus 10,000 MMU CELLS/CAPSULE OGT SCH ×2 (07:31→19:54)
[2021-10-05] MEDS: multivitamins, therapeutics tablet PO SCH (07:31)
[2021-10-05] MEDS: POTASSIUM CHLORIDE 20 MEQ/15 ML oral solution OGT SCH ×3 (07:31→20:01)
[2021-10-05] MEDS: docusate sodium 100mg/10ml UD cup OGT SCH (07:31)
[2021-10-05] MEDS: ferrous sulfate 325mg tablet PO SCH (07:31)
[2021-10-05 09:35] LABS: MAGNESIUM 1.7 MG/DL (1.5-2.4)
[2021-10-05 09:40] LABS: PHOSPHORUS 4.3 MG/DL (2.3-4.5)
--- NOTE | 2021-10-05 12:20 | NUR ---
Reassessment: Pt remains intubated, s/p trach and G-tube placement. TF back at goal rate and pt tolerating with GRV WNL. TC to RN who reports Propofol is currently running at 30 mcg/kg/min (20.34 mL/hr) providing roughly 537 kcal/day. Noted TG elevated at 589 mg/dL this morning, d/w clinical pharmacist and RN. RN reports will titrate Propofol as appropriate. Will hold off on adjusting TF recs at this time pending adjustments to Propofol rate. LBM 10/04 documented with 100 mL stool output per I&O. Pt receiving routine bowel care and has received PRN bowel care the last three days in a row. Pt now receiving routine MVI and Zinc to assist with skin integrity/wound healing. Will continue to follow. Recommendations: 1) IF Propofol continues at 20.34 mL/hr (537 kcal/day); Decrease continuous TF using Vital AF to goal rate of 70 mL/hr to provide 1680 mL total volume/day, 2016 kcal, 126 g protein, and 1362 mL water 2) IF off Propofol; advance TF using Vital AF with goal rate of 85 mL/hr to provide 2040 mL total volume/day, 2448 kcal, 153 g protein, and 1654 mL water 3) Monitor Propofol rate and need to adjust TF recs; TG 589 mg/dL today 4) No water flush at this time per MD; monitor serum Na 5) Continue routine MVI and Zinc per MS 6) Prealbumin q Thursday/ 7) Daily scaled weights 8) Routine bowel care; utilize PRN bowel care 9) DM education once stable following extubation and official DM dx by physician; A1c 10.1% with no PMH DM in EMR Addendum: 10/05/21 at [address] Amended: Links added.
[2021-10-05] MEDS: quetiapine 100mg tablet PO SCH (19:58)
[2021-10-05] MEDS: insulin glargine (Lantus) pen - multi-dose SQ SCH (21:00)
[2021-10-06] VITALS (39 sets, daily range): BP systolic 84–136; BP diastolic 36–83
[2021-10-06] MEDS: oxyCODONE IR 5mg (immed. release) tablet PEG SCH ×7 (00:21→23:18)
[2021-10-06] MEDS: dexmedetomidine/D5W 100mL 100 ML IV SCH ×7 (00:22→16:53)
[2021-10-06] MEDS: ALPRAZolam 0.5mg tablet PO SCH ×3 (00:22→15:19)
[2021-10-06] MEDS: insulin regular, human U-100 3ml vial - multi-dose SQ SCH ×3 (01:36→15:13)
[2021-10-06] MEDS: propofol 1000mg/100ml bottle 100 ML IV SCH ×4 (02:47→15:59)
[2021-10-06] MEDS: fentaNYL/NS/PF 2,500 mcg/250mL 250 ML IV PRN ×2 (02:48→11:43)
[2021-10-06] MEDS: mineral oil/petrolatum ophthal oint EACHEYE SCH ×4 (02:48→19:20)
[2021-10-06 02:51] LABS: BASOPHILS # (AUTO) 0.1 X10'3 (0-0.2); BASOPHILS % (AUTO) 1.2 % (0-1); EOSINOPHILS # (AUTO) 0.9 X10'3 (0-0.9); EOSINOPHILS % (AUTO) 9.7 % (0-6); HEMOGLOBIN 9.1 g/dl (14.0-17.9); LYMPHOCYTES % (AUTO) 10.9 % (21-51); MEAN CORPUSCULAR HEMOGLOBIN 27.8 PG (27.0-31.0); MEAN CORPUSCULAR HGB CONC 32.6 g/dL (33.0-36.5); MEAN CORPUSCULAR VOLUME 85.4 FL (78-98); MEAN PLATELET VOLUME 9.2 FL (7.4-10.4); MONOCYTES % (AUTO) 11.3 % (2-12); NEUTROPHILS % (AUTO) 66.9 % (42-75); PLATELET COUNT 304 X10'3 (140-440); RED BLOOD COUNT 3.28 X10'6 (4.70-6.10); WHITE BLOOD COUNT 8.9 X10'3 (4.5-11.0)
[2021-10-06 03:02] LABS: D-DIMER 1.14 MG/L FEU (0-0.50)
[2021-10-06 03:06] LABS: ALANINE AMINOTRANSFERASE 15 U/L (12-78); ALBUMIN 2.4 G/DL (3.4-5.0); ALBUMIN/GLOBULIN RATIO 0.8 (1.1-1.5); ALKALINE PHOSPHATASE 147 IU/L (46-116); ANION GAP 11 (8-16); ASPARTATE AMINO TRANSFERASE 15 U/L (10-37); BILIRUBIN,TOTAL 0.4 MG/DL (0.1-1.0); BLOOD UREA NITROGEN 5 MG/DL (7-18); BUN/CREATININE RATIO 22.7 (5.4-32.0); C-REACTIVE PROTEIN 13.41 MG/DL (0.0-0.5); CALCIUM 8.5 MG/DL (8.5-10.1); CHLORIDE 96 MMOL/L (99-107); CREATININE 0.22 MG/DL (0.60-1.10); LACTATE DEHYDROGENASE 275 U/L (85-227); POTASSIUM 4.2 MMOL/L (3.5-5.1); SODIUM 134 MMOL/L (135-145); TOTAL CARBON DIOXIDE 27.5 MMOL/L (24-32); TOTAL PROTEIN 5.5 G/DL (6.4-8.2); TRIGLYCERIDES 418 MG/DL (20-135); eGFR > 90 ML/MIN
[2021-10-06 03:10] LABS: GLUCOSE 205 MG/DL (70-104)
--- NOTE | 2021-10-06 06:31 | NUR ---
Problems reprioritized. Patient report given, questions answered & plan of care reviewed with ANDRÉS Souza
[2021-10-06] MEDS: docusate sodium 100mg/10ml UD cup OGT SCH (07:34)
[2021-10-06] MEDS: multivitamins, therapeutics tablet PO SCH (07:35)
[2021-10-06] MEDS: POTASSIUM CHLORIDE 20 MEQ/15 ML oral solution OGT SCH ×3 (07:35→21:00)
[2021-10-06] MEDS: zinc sulfate 220mg capsule PO SCH ×3 (07:36→19:20)
[2021-10-06] MEDS: quetiapine 100mg tablet PO SCH ×2 (07:36→19:20)
[2021-10-06] MEDS: ferrous sulfate 325mg tablet PO SCH (07:36)
[2021-10-06] MEDS: pantoprazole 40MG/NS 100ML BAG 100 ML IV SCH (07:36)
[2021-10-06] MEDS: lactobacillus rhamnosus 10,000 MMU CELLS/CAPSULE OGT SCH ×2 (07:36→19:20)
[2021-10-06] MEDS: enoxaparin 40mg/0.4ml syringe SQ SCH ×2 (07:36→19:20)
[2021-10-06] MEDS: nystatin 15 GM powder TP SCH ×3 (07:37→21:00)
[2021-10-06] MEDS: sevelamer carbonate 0.8gm powder pkt OGT SCH ×3 (08:00→18:00)
[2021-10-06] MEDS: acetaminophen 325mg/10.15ml oral unit dose solution OGT PRN (14:49)
[2021-10-06] MEDS ORDERED: GABAPENTIN 300 MG/6 ML oral SOLUTION cup PO SCH (16:00)
[2021-10-06] MEDS: LORazepam 1 MG tablet OGT PRN (16:02)
[2021-10-06] MEDS ORDERED: gabapentin 100mg capsule OGT SCH (16:13)
[2021-10-06] MEDS: gabapentin 100mg capsule OGT SCH ×2 (16:17→23:17)
[2021-10-06] MEDS ORDERED: NORepinephrine 8mg/ 250ml NS 250 ML IV ONE (19:47)
[2021-10-06] MEDS: insulin glargine (Lantus) pen - multi-dose SQ SCH (21:00)
[2021-10-06] MEDS: ALPRAZolam 0.5mg tablet OGT SCH (23:17)
[2021-10-07] VITALS (46 sets, daily range): BP systolic 90–127; BP diastolic 41–89
[2021-10-07] MEDS: mineral oil/petrolatum ophthal oint EACHEYE SCH ×4 (02:00→20:08)
[2021-10-07 03:22] LABS: BASOPHILS # (AUTO) 0.1 X10'3 (0-0.2); BASOPHILS % (AUTO) 0.8 % (0-1); EOSINOPHILS % (AUTO) 16.2 % (0-6); HEMATOCRIT 29.8 % (42.0-52.0); HEMOGLOBIN 9.4 g/dl (14.0-17.9); LYMPHOCYTES % (AUTO) 8.6 % (21-51); MEAN CORPUSCULAR HEMOGLOBIN 27.2 PG (27.0-31.0); MEAN CORPUSCULAR HGB CONC 31.6 g/dL (33.0-36.5); MEAN PLATELET VOLUME 8.2 FL (7.4-10.4); MONOCYTES # (AUTO) 1.3 X10'3 (0-0.9); MONOCYTES % (AUTO) 10.5 % (2-12); NEUTROPHILS # (AUTO) 7.8 X10'3 (1.8-7.7); NEUTROPHILS % (AUTO) 63.9 % (42-75); PLATELET COUNT 313 X10'3 (140-440); RED BLOOD COUNT 3.46 X10'6 (4.70-6.10); RED CELL DISTRIBUTION WIDTH 17.8 % (11.5-14.5); WHITE BLOOD COUNT 12.2 X10'3 (4.5-11.0)
[2021-10-07 03:26] LABS: D-DIMER 1.49 MG/L FEU (0-0.50)
[2021-10-07 03:58] LABS: ANION GAP 8 (8-16); BILIRUBIN,TOTAL 0.2 MG/DL (0.1-1.0); BLOOD UREA NITROGEN 7 MG/DL (7-18); BUN/CREATININE RATIO 43.8 (5.4-32.0); C-REACTIVE PROTEIN 21.57 MG/DL (0.0-0.5); CHLORIDE 99 MMOL/L (99-107); CREATININE 0.16 MG/DL (0.60-1.10); GLUCOSE 158 MG/DL (70-104); LACTATE DEHYDROGENASE 298 U/L (85-227); MAGNESIUM 1.4 MG/DL (1.5-2.4); PHOSPHORUS 4.7 MG/DL (2.3-4.5); POTASSIUM 4.3 MMOL/L (3.5-5.1); SODIUM 139 MMOL/L (135-145); TOTAL CARBON DIOXIDE 31.9 MMOL/L (24-32); TOTAL PROTEIN 5.9 G/DL (6.4-8.2); eGFR > 90 ML/MIN
[2021-10-07 03:59] LABS: ALANINE AMINOTRANSFERASE 13 U/L (12-78); ALBUMIN 2.5 G/DL (3.4-5.0); ALBUMIN/GLOBULIN RATIO 0.7 (1.1-1.5); ALKALINE PHOSPHATASE 147 IU/L (46-116); ASPARTATE AMINO TRANSFERASE 14 U/L (10-37); TRIGLYCERIDES 131 MG/DL (20-135)
[2021-10-07] MEDS: oxyCODONE IR 5mg (immed. release) tablet PEG SCH ×5 (04:19→20:09)
[2021-10-07] MEDS: insulin regular, human U-100 3ml vial - multi-dose SQ SCH ×2 (04:21→21:30)
[2021-10-07] MEDS: dexmedetomidine/D5W 100mL 100 ML IV SCH ×7 (06:14→22:32)
[2021-10-07] MEDS: LORazepam 1 MG tablet OGT PRN (06:17)
[2021-10-07] MEDS: dextrose 50%-water 50ml dispensing syringe IV PRN ×2 (08:34→09:09)
[2021-10-07] MEDS: propofol 1000mg/100ml bottle 100 ML IV SCH ×3 (08:35→22:32)
[2021-10-07] MEDS: POTASSIUM CHLORIDE 20 MEQ/15 ML oral solution OGT SCH ×3 (08:46→20:14)
[2021-10-07] MEDS: ALPRAZolam 0.5mg tablet OGT SCH ×2 (08:48→16:36)
[2021-10-07] MEDS: zinc sulfate 220mg capsule PO SCH ×3 (08:48→20:10)
[2021-10-07] MEDS: enoxaparin 40mg/0.4ml syringe SQ SCH ×2 (08:48→20:10)
[2021-10-07] MEDS: multivitamins, therapeutics tablet PO SCH (08:48)
[2021-10-07] MEDS: sevelamer carbonate 0.8gm powder pkt OGT SCH ×3 (08:48→18:23)
[2021-10-07] MEDS: pantoprazole 40MG/NS 100ML BAG 100 ML IV SCH (08:48)
[2021-10-07] MEDS: lactobacillus rhamnosus 10,000 MMU CELLS/CAPSULE OGT SCH ×2 (08:48→20:09)
[2021-10-07] MEDS: docusate sodium 100mg/10ml UD cup OGT SCH (08:48)
[2021-10-07] MEDS: ferrous sulfate 325mg tablet PO SCH (08:48)
[2021-10-07] MEDS: nystatin 15 GM powder TP SCH ×3 (08:49→20:11)
[2021-10-07] MEDS: quetiapine 100mg tablet PO SCH ×2 (08:49→20:09)
[2021-10-07] MEDS: gabapentin 100mg capsule OGT SCH ×3 (08:49→23:59)
[2021-10-07 11:28] LABS: ALBUMIN 2.2 G/DL (3.4-5.0); ANION GAP 6 (8-16); BLOOD UREA NITROGEN 5 MG/DL (7-18); CALCIUM 8.1 MG/DL (8.5-10.1); CHLORIDE 99 MMOL/L (99-107); SODIUM 137 MMOL/L (135-145); TOTAL CARBON DIOXIDE 32.1 MMOL/L (24-32)
[2021-10-07 11:31] LABS: GLUCOSE 63 MG/DL (70-104); POTASSIUM 4.3 MMOL/L (3.5-5.1)
[2021-10-07 11:33] LABS: BUN/CREATININE RATIO 62.5 (5.4-32.0); CREATININE 0.08 MG/DL (0.60-1.10); eGFR > 90 ML/MIN
[2021-10-07] MEDS: Dextrose 10%-water IV solution 1,000 ML IV SCH (13:18)
[2021-10-07] MEDS: fentaNYL/NS/PF 2,500 mcg/250mL 250 ML IV PRN (14:03)
[2021-10-07] MEDS: insulin glargine (Lantus) pen - multi-dose SQ SCH (20:14)
[2021-10-08] VITALS (46 sets, daily range): BP systolic 89–151; BP diastolic 44–100
[2021-10-08] MEDS: fentaNYL/NS/PF 2,500 mcg/250mL 250 ML IV PRN ×3 (00:06→21:40)
[2021-10-08] MEDS: propofol 1000mg/100ml bottle 100 ML IV SCH ×4 (02:54→21:39)
[2021-10-08] MEDS: dexmedetomidine/D5W 100mL 100 ML IV SCH ×8 (02:55→21:40)
[2021-10-08] MEDS: mineral oil/petrolatum ophthal oint EACHEYE SCH ×4 (02:55→20:41)
[2021-10-08] MEDS: insulin regular, human U-100 3ml vial - multi-dose SQ SCH ×4 (03:17→20:48)
[2021-10-08 03:21] LABS: BASOPHILS # (AUTO) 0.1 X10'3 (0-0.2); BASOPHILS % (AUTO) 0.8 % (0-1); EOSINOPHILS # (AUTO) 1.4 X10'3 (0-0.9); EOSINOPHILS % (AUTO) 14.7 % (0-6); HEMATOCRIT 25.8 % (42.0-52.0); HEMOGLOBIN 8.4 g/dl (14.0-17.9); LYMPHOCYTES # (AUTO) 1.1 X10'3 (1.1-4.8); LYMPHOCYTES % (AUTO) 11.8 % (21-51); MEAN CORPUSCULAR HEMOGLOBIN 27.8 PG (27.0-31.0); MEAN CORPUSCULAR HGB CONC 32.6 g/dL (33.0-36.5); MEAN PLATELET VOLUME 8.1 FL (7.4-10.4); MONOCYTES % (AUTO) 10.2 % (2-12); NEUTROPHILS % (AUTO) 62.5 % (42-75); PLATELET COUNT 279 X10'3 (140-440); RED BLOOD COUNT 3.03 X10'6 (4.70-6.10); RED CELL DISTRIBUTION WIDTH 16.7 % (11.5-14.5); WHITE BLOOD COUNT 9.6 X10'3 (4.5-11.0)
[2021-10-08 03:32] LABS: D-DIMER 0.98 MG/L FEU (0-0.50)
[2021-10-08 03:55] LABS: CHLORIDE 99 MMOL/L (99-107); GLUCOSE 133 MG/DL (70-104); POTASSIUM 4.5 MMOL/L (3.5-5.1); SODIUM 138 MMOL/L (135-145)
[2021-10-08 03:56] LABS: ALANINE AMINOTRANSFERASE 12 U/L (12-78); ALBUMIN 2.2 G/DL (3.4-5.0); ALBUMIN/GLOBULIN RATIO 0.7 (1.1-1.5); ALKALINE PHOSPHATASE 131 IU/L (46-116); ANION GAP 6 (8-16); ASPARTATE AMINO TRANSFERASE 10 U/L (10-37); BILIRUBIN,TOTAL 0.2 MG/DL (0.1-1.0); BLOOD UREA NITROGEN 7 MG/DL (7-18); BUN/CREATININE RATIO 53.8 (5.4-32.0); C-REACTIVE PROTEIN 21.66 MG/DL (0.0-0.5); CALCIUM 9.3 MG/DL (8.5-10.1); CREATININE 0.13 MG/DL (0.60-1.10); LACTATE DEHYDROGENASE 262 U/L (85-227); TOTAL CARBON DIOXIDE 33.5 MMOL/L (24-32); TOTAL PROTEIN 5.5 G/DL (6.4-8.2); eGFR > 90 ML/MIN
[2021-10-08] MEDS: Dextrose 10%-water IV solution 1,000 ML IV SCH (06:05)
[2021-10-08] MEDS: oxyCODONE IR 5mg (immed. release) tablet PEG SCH ×7 (06:19→23:13)
[2021-10-08] MEDS ORDERED: ferrous sulfate 300mg/5ml UD oral liquid PEG SCH (08:00)
[2021-10-08] MEDS: docusate sodium 100mg/10ml UD cup OGT SCH (08:54)
[2021-10-08] MEDS: POTASSIUM CHLORIDE 20 MEQ/15 ML oral solution OGT SCH ×2 (08:55→12:45)
[2021-10-08] MEDS: enoxaparin 40mg/0.4ml syringe SQ SCH ×2 (08:55→20:43)
[2021-10-08] MEDS: acetaminophen 325mg/10.15ml oral unit dose solution OGT PRN (08:55)
[2021-10-08] MEDS: ALPRAZolam 0.5mg tablet OGT SCH ×2 (08:56)
[2021-10-08] MEDS: ferrous sulfate 325mg tablet PO SCH (08:56)
[2021-10-08] MEDS: zinc sulfate 220mg capsule PO SCH ×3 (08:56→20:42)
[2021-10-08] MEDS: nystatin 15 GM powder TP SCH ×3 (08:56→20:43)
[2021-10-08] MEDS: gabapentin 100mg capsule OGT SCH (08:56)
[2021-10-08] MEDS: lactobacillus rhamnosus 10,000 MMU CELLS/CAPSULE OGT SCH (08:56)
[2021-10-08] MEDS: pantoprazole 40MG/NS 100ML BAG 100 ML IV SCH (08:56)
[2021-10-08] MEDS: sevelamer carbonate 0.8gm powder pkt OGT SCH ×2 (08:56→12:45)
[2021-10-08] MEDS: multivitamins, therapeutics tablet PO SCH (08:56)
[2021-10-08] MEDS: quetiapine 100mg tablet PO SCH (08:56)
[2021-10-08] MEDS: LORazepam 1 MG tablet OGT PRN (08:56)
--- NOTE | 2021-10-08 13:36 | NUR ---
Reassessment: Pt remains intubated and tolerating TF with GRV WNL. Noted TG WNL on 10/07 and pt continues on Propofol. Per bedside RN Propofol currently running at 20.34 mL/hr which provides 537 kcal/day. Recommend reducing TF goal rate to prevent overfeeding while on the vent, see updated recommendations below. Noted pt with low BG levels 10/07, pt on glycemic protocol and started on D10 at 50 mL/hr though was non-admin today d/t not being needed. BG levels well controlled today. LBM 10/07 documented as small though with 600 mL stool output 10/06 per I&O. Pt continues receiving routine bowel care with PRN bowel care available. Will continue to follow and monitor need for further adjustments to nutrition recommendations. Recommendations: 1) While Propofol at 20.34 mL/hr (537 kcal/day); Continuous TF using Vital AF to goal rate of 70 mL/hr to provide 1680 mL total volume/day, 2016 kcal, 126 g protein, and 1362 mL water 2) IF off Propofol; advance TF using Vital AF with goal rate of 85 mL/hr to provide 2040 mL total volume/day, 2448 kcal, 153 g protein, and 1654 mL water 3) Monitor Propofol rate and need to adjust TF recs 4) No water flush at this time per MD; monitor serum Na 5) Continue routine MVI and Zinc per MD 6) Prealbumin q Thursday/ 7) Daily scaled weights 8) Routine bowel care; utilize PRN bowel care 9) DM education once stable following extubation and official DM dx by physician; A1c 10.1% with no PMH DM in EMR Addendum: 10/08/21 at [address] Amended: Links added. Addendum: 10/08/21 at [address] Updated TF recommendations were placed in EMR and d/w RN
[2021-10-08] MEDS ORDERED: dextrose ORAL solution 15 GM/59 ML bottle PEG PRN ×2 (15:42)
[2021-10-08] MEDS ORDERED: polyethylene glycol 3350 17gm powd pack PEG PRN (15:49)
[2021-10-08] MEDS ORDERED: POTASSIUM CHLORIDE 20 MEQ/15 ML oral solution PEG PRN (15:49)
[2021-10-08] MEDS ORDERED: sevelamer carbonate 0.8gm powder pkt PEG SCH (15:53)
[2021-10-08] MEDS: gabapentin 100mg capsule PEG SCH ×2 (16:45→23:13)
[2021-10-08] MEDS: ALPRAZolam 0.5mg tablet PEG SCH ×2 (16:46→23:13)
[2021-10-08] MEDS: LORazepam 1 MG tablet PEG PRN ×2 (16:46→23:13)
[2021-10-08] MEDS: quetiapine 100mg tablet PEG SCH (20:42)
[2021-10-08] MEDS: lactobacillus rhamnosus 10,000 MMU CELLS/CAPSULE PEG SCH (20:42)
[2021-10-08] MEDS: POTASSIUM CHLORIDE 20 MEQ/15 ML oral solution PEG SCH (20:43)
[2021-10-08] MEDS: insulin glargine (Lantus) pen - multi-dose SQ SCH (20:46)
[2021-10-08] MEDS: sevelamer carbonate 0.8gm powder pkt PEG SCH (23:13)
[2021-10-09] VITALS (45 sets, daily range): BP systolic 90–154; BP diastolic 51–99
[2021-10-09] MEDS: Dextrose 10%-water IV solution 1,000 ML IV SCH ×2 (02:05→20:46)
[2021-10-09] MEDS: mineral oil/petrolatum ophthal oint EACHEYE SCH ×4 (02:46→20:42)
[2021-10-09 03:30] LABS: BASOPHILS # (AUTO) 0.1 X10'3 (0-0.2); BASOPHILS % (AUTO) 0.9 % (0-1); EOSINOPHILS # (AUTO) 1.2 X10'3 (0-0.9); EOSINOPHILS % (AUTO) 9.5 % (0-6); HEMATOCRIT 26.9 % (42.0-52.0); HEMOGLOBIN 8.5 g/dl (14.0-17.9); LYMPHOCYTES # (AUTO) 1.1 X10'3 (1.1-4.8); LYMPHOCYTES % (AUTO) 8.7 % (21-51); MEAN CORPUSCULAR HGB CONC 31.5 g/dL (33.0-36.5); MEAN CORPUSCULAR VOLUME 85.6 FL (78-98); MEAN PLATELET VOLUME 8.8 FL (7.4-10.4); MONOCYTES # (AUTO) 1.1 X10'3 (0-0.9); MONOCYTES % (AUTO) 8.9 % (2-12); NEUTROPHILS # (AUTO) 8.9 X10'3 (1.8-7.7); PLATELET COUNT 304 X10'3 (140-440); RED BLOOD COUNT 3.15 X10'6 (4.70-6.10); RED CELL DISTRIBUTION WIDTH 17.7 % (11.5-14.5); WHITE BLOOD COUNT 12.3 X10'3 (4.5-11.0)
[2021-10-09 03:38] LABS: D-DIMER 1.26 MG/L FEU (0-0.50)
[2021-10-09 03:48] LABS: ALANINE AMINOTRANSFERASE 11 U/L (12-78); ALBUMIN 2.3 G/DL (3.4-5.0); ALBUMIN/GLOBULIN RATIO 0.7 (1.1-1.5); ANION GAP 6 (8-16); ASPARTATE AMINO TRANSFERASE 11 U/L (10-37); BILIRUBIN,TOTAL 0.2 MG/DL (0.1-1.0); BLOOD UREA NITROGEN 5 MG/DL (7-18); BUN/CREATININE RATIO 27.8 (5.4-32.0); C-REACTIVE PROTEIN 16.28 MG/DL (0.0-0.5); CALCIUM 9.3 MG/DL (8.5-10.1); CHLORIDE 101 MMOL/L (99-107); CREATININE 0.18 MG/DL (0.60-1.10); GLUCOSE 135 MG/DL (70-104); LACTATE DEHYDROGENASE 242 U/L (85-227); POTASSIUM 4.5 MMOL/L (3.5-5.1); SODIUM 143 MMOL/L (135-145); TOTAL CARBON DIOXIDE 35.8 MMOL/L (24-32); TOTAL PROTEIN 5.6 G/DL (6.4-8.2); eGFR > 90 ML/MIN
[2021-10-09] MEDS: propofol 1000mg/100ml bottle 100 ML IV SCH ×5 (03:49→21:01)
[2021-10-09] MEDS: dexmedetomidine/D5W 100mL 100 ML IV SCH ×8 (03:49→21:40)
[2021-10-09] MEDS: insulin regular, human U-100 3ml vial - multi-dose SQ SCH ×4 (03:51→21:47)
[2021-10-09] MEDS: oxyCODONE IR 5mg (immed. release) tablet PEG SCH ×5 (03:52→20:43)
[2021-10-09] MEDS: pantoprazole 40MG/NS 100ML BAG 100 ML IV SCH (07:49)
[2021-10-09] MEDS: MULTIVIT-MIN/FERROUS GLUCONATE 9 MG/15 ML LIQUID PEG SCH (07:49)
[2021-10-09] MEDS: quetiapine 100mg tablet PEG SCH ×2 (07:50→20:43)
[2021-10-09] MEDS: POTASSIUM CHLORIDE 20 MEQ/15 ML oral solution PEG SCH ×3 (07:50→20:43)
[2021-10-09] MEDS: lactobacillus rhamnosus 10,000 MMU CELLS/CAPSULE PEG SCH ×2 (07:50→20:43)
[2021-10-09] MEDS: zinc sulfate 220mg capsule PO SCH ×3 (07:50→20:43)
[2021-10-09] MEDS: docusate sodium 100mg/10ml UD cup PEG SCH (07:50)
[2021-10-09] MEDS: gabapentin 100mg capsule PEG SCH ×2 (07:50→15:10)
[2021-10-09] MEDS: sevelamer carbonate 0.8gm powder pkt PEG SCH ×2 (07:51→15:09)
[2021-10-09] MEDS: ALPRAZolam 0.5mg tablet PEG SCH ×2 (07:51→15:10)
[2021-10-09] MEDS: enoxaparin 40mg/0.4ml syringe SQ SCH ×2 (07:51→20:44)
[2021-10-09] MEDS: LORazepam 1 MG tablet PEG PRN ×3 (07:51→21:03)
[2021-10-09] MEDS: nystatin 15 GM powder TP SCH ×3 (07:51→20:44)
[2021-10-09] MEDS: ferrous sulfate 300mg/5ml UD oral liquid PEG SCH (08:00)
[2021-10-09] MEDS: fentaNYL/NS/PF 2,500 mcg/250mL 250 ML IV PRN ×2 (09:51→21:30)
[2021-10-09] MEDS: furosemide 40mg/4ml inj IV SCH ×2 (15:09→20:43)
[2021-10-09] MEDS: insulin glargine (Lantus) pen - multi-dose SQ SCH (20:45)
[2021-10-10] VITALS (36 sets, daily range): BP systolic 92–139; BP diastolic 42–116
[2021-10-10] MEDS: gabapentin 100mg capsule PEG SCH ×4 (00:09→23:30)
[2021-10-10] MEDS: oxyCODONE IR 5mg (immed. release) tablet PEG SCH ×7 (00:09→23:30)
[2021-10-10] MEDS: sevelamer carbonate 0.8gm powder pkt PEG SCH ×4 (00:09→23:31)
[2021-10-10] MEDS: ALPRAZolam 0.5mg tablet PEG SCH ×4 (00:09→23:30)
[2021-10-10] MEDS: furosemide 40mg/4ml inj IV SCH ×4 (02:18→21:04)
[2021-10-10] MEDS: mineral oil/petrolatum ophthal oint EACHEYE SCH ×4 (02:18→20:00)
[2021-10-10] MEDS: propofol 1000mg/100ml bottle 100 ML IV SCH ×3 (02:57→16:14)
[2021-10-10] MEDS: dexmedetomidine/D5W 100mL 100 ML IV SCH ×5 (02:57→23:31)
[2021-10-10 03:23] LABS: BASOPHILS # (AUTO) 0.1 X10'3 (0-0.2); BASOPHILS % (AUTO) 0.9 % (0-1); EOSINOPHILS # (AUTO) 0.9 X10'3 (0-0.9); EOSINOPHILS % (AUTO) 8.6 % (0-6); HEMATOCRIT 29.3 % (42.0-52.0); HEMOGLOBIN 9.3 g/dl (14.0-17.9); LYMPHOCYTES # (AUTO) 1.5 X10'3 (1.1-4.8); LYMPHOCYTES % (AUTO) 14.7 % (21-51); MEAN CORPUSCULAR HEMOGLOBIN 27.1 PG (27.0-31.0); MEAN CORPUSCULAR HGB CONC 31.9 g/dL (33.0-36.5); MEAN CORPUSCULAR VOLUME 84.9 FL (78-98); MEAN PLATELET VOLUME 8.5 FL (7.4-10.4); MONOCYTES # (AUTO) 0.9 X10'3 (0-0.9); MONOCYTES % (AUTO) 8.6 % (2-12); NEUTROPHILS # (AUTO) 6.8 X10'3 (1.8-7.7); NEUTROPHILS % (AUTO) 67.2 % (42-75); PLATELET COUNT 344 X10'3 (140-440); RED BLOOD COUNT 3.45 X10'6 (4.70-6.10); RED CELL DISTRIBUTION WIDTH 17.2 % (11.5-14.5); WHITE BLOOD COUNT 10.1 X10'3 (4.5-11.0)
[2021-10-10 03:33] LABS: D-DIMER 1.57 MG/L FEU (0-0.50)
[2021-10-10 03:37] LABS: ALANINE AMINOTRANSFERASE 12 U/L (12-78); ALBUMIN 2.7 G/DL (3.4-5.0); ALBUMIN/GLOBULIN RATIO 0.7 (1.1-1.5); ALKALINE PHOSPHATASE 141 IU/L (46-116); ANION GAP 10 (8-16); ASPARTATE AMINO TRANSFERASE 11 U/L (10-37); BILIRUBIN,TOTAL 0.2 MG/DL (0.1-1.0); BLOOD UREA NITROGEN 5 MG/DL (7-18); BUN/CREATININE RATIO 29.4 (5.4-32.0); C-REACTIVE PROTEIN 16.16 MG/DL (0.0-0.5); CALCIUM 9.3 MG/DL (8.5-10.1); CHLORIDE 98 MMOL/L (99-107); CREATININE 0.17 MG/DL (0.60-1.10); GLUCOSE 118 MG/DL (70-104); LACTATE DEHYDROGENASE 263 U/L (85-227); MAGNESIUM 1.5 MG/DL (1.5-2.4); PHOSPHORUS 4.8 MG/DL (2.3-4.5); POTASSIUM 3.7 MMOL/L (3.5-5.1); SODIUM 144 MMOL/L (135-145); TOTAL CARBON DIOXIDE 35.9 MMOL/L (24-32); TOTAL PROTEIN 6.4 G/DL (6.4-8.2); eGFR > 90 ML/MIN
[2021-10-10] MEDS: LORazepam 1 MG tablet PEG PRN ×2 (04:09→23:30)
[2021-10-10] MEDS: ondansetron/PF 4mg/2ml inj IV PRN ×4 (04:09→18:18)
[2021-10-10] MEDS: lactobacillus rhamnosus 10,000 MMU CELLS/CAPSULE PEG SCH ×2 (08:00→20:00)
[2021-10-10] MEDS: docusate sodium 100mg/10ml UD cup PEG SCH (08:00)
[2021-10-10] MEDS: quetiapine 100mg tablet PEG SCH ×2 (08:00→20:00)
[2021-10-10] MEDS: POTASSIUM CHLORIDE 20 MEQ/15 ML oral solution PEG SCH ×3 (08:01→21:00)
[2021-10-10] MEDS: zinc sulfate 220mg capsule PO SCH ×3 (08:01→21:00)
[2021-10-10] MEDS: ferrous sulfate 300mg/5ml UD oral liquid PEG SCH (08:01)
[2021-10-10] MEDS: MULTIVIT-MIN/FERROUS GLUCONATE 9 MG/15 ML LIQUID PEG SCH (08:01)
[2021-10-10] MEDS: nystatin 15 GM powder TP SCH ×3 (08:02→21:05)
[2021-10-10] MEDS: enoxaparin 40mg/0.4ml syringe SQ SCH ×2 (08:02→21:04)
[2021-10-10] MEDS: pantoprazole 40MG/NS 100ML BAG 100 ML IV SCH (08:15)
[2021-10-10] MEDS: insulin regular, human U-100 3ml vial - multi-dose SQ SCH (08:18)
[2021-10-10] MEDS: fentaNYL/NS/PF 2,500 mcg/250mL 250 ML IV PRN (09:05)
[2021-10-10] MEDS: Dextrose 10%-water IV solution 1,000 ML IV SCH (17:10)
[2021-10-10] MEDS: proCHLORperazine 10 MG/2 ml inj IV PRN (21:06)
[2021-10-10] MEDS: insulin glargine (Lantus) pen - multi-dose SQ SCH (21:07)
[2021-10-11] VITALS (36 sets, daily range): BP systolic 94–138; BP diastolic 46–92
[2021-10-11] MEDS: mineral oil/petrolatum ophthal oint EACHEYE SCH ×4 (02:18→19:59)
[2021-10-11] MEDS: dexmedetomidine/D5W 100mL 100 ML IV SCH ×5 (02:19→20:23)
[2021-10-11] MEDS: furosemide 40mg/4ml inj IV SCH (02:19)
[2021-10-11 02:51] LABS: BASOPHILS # (AUTO) 0.1 X10'3 (0-0.2); EOSINOPHILS # (AUTO) 0.2 X10'3 (0-0.9); EOSINOPHILS % (AUTO) 2.5 % (0-6); HEMATOCRIT 28.6 % (42.0-52.0); HEMOGLOBIN 9.2 g/dl (14.0-17.9); LYMPHOCYTES # (AUTO) 0.9 X10'3 (1.1-4.8); LYMPHOCYTES % (AUTO) 10.7 % (21-51); MEAN CORPUSCULAR HEMOGLOBIN 27.3 PG (27.0-31.0); MEAN CORPUSCULAR HGB CONC 32.3 g/dL (33.0-36.5); MEAN CORPUSCULAR VOLUME 84.5 FL (78-98); MEAN PLATELET VOLUME 8.2 FL (7.4-10.4); MONOCYTES # (AUTO) 0.5 X10'3 (0-0.9); MONOCYTES % (AUTO) 6.2 % (2-12); NEUTROPHILS # (AUTO) 6.7 X10'3 (1.8-7.7); NEUTROPHILS % (AUTO) 79.6 % (42-75); PLATELET COUNT 329 X10'3 (140-440); RED BLOOD COUNT 3.38 X10'6 (4.70-6.10); RED CELL DISTRIBUTION WIDTH 16.9 % (11.5-14.5); WHITE BLOOD COUNT 8.4 X10'3 (4.5-11.0)
[2021-10-11 03:03] LABS: ALANINE AMINOTRANSFERASE 11 U/L (12-78); ALBUMIN 2.6 G/DL (3.4-5.0); ALBUMIN/GLOBULIN RATIO 0.7 (1.1-1.5); ALKALINE PHOSPHATASE 130 IU/L (46-116); ANION GAP 3 (8-16); ASPARTATE AMINO TRANSFERASE 12 U/L (10-37); BILIRUBIN,TOTAL 0.2 MG/DL (0.1-1.0); BLOOD UREA NITROGEN 9 MG/DL (7-18); BUN/CREATININE RATIO 42.9 (5.4-32.0); C-REACTIVE PROTEIN 10.37 MG/DL (0.0-0.5); CALCIUM 9.2 MG/DL (8.5-10.1); CHLORIDE 100 MMOL/L (99-107); CREATININE 0.21 MG/DL (0.60-1.10); GLUCOSE 145 MG/DL (70-104); LACTATE DEHYDROGENASE 227 U/L (85-227); POTASSIUM 3.8 MMOL/L (3.5-5.1); SODIUM 146 MMOL/L (135-145); TOTAL PROTEIN 6.1 G/DL (6.4-8.2); eGFR > 90 ML/MIN
[2021-10-11 03:12] LABS: TOTAL CARBON DIOXIDE 42.8 MMOL/L (24-32)
[2021-10-11] MEDS: oxyCODONE IR 5mg (immed. release) tablet PEG SCH ×5 (03:16→20:00)
[2021-10-11] MEDS: insulin regular, human U-100 3ml vial - multi-dose SQ SCH ×2 (03:16→21:02)
[2021-10-11 05:06] LABS: OXYGEN SATURATION (MIXED VEN) 82.3 % (60-80); PO2 MIXED VENOUS (TEMP COR) 45.2 mmHg (35-46)
[2021-10-11] MEDS: fentaNYL/NS/PF 2,500 mcg/250mL 250 ML IV PRN ×3 (05:46→16:10)
[2021-10-11] MEDS: proCHLORperazine 10 MG/2 ml inj IV PRN (07:37)
[2021-10-11] MEDS: gabapentin 100mg capsule PEG SCH ×2 (07:52→15:41)
[2021-10-11] MEDS: docusate sodium 100mg/10ml UD cup PEG SCH (07:52)
[2021-10-11] MEDS: POTASSIUM CHLORIDE 20 MEQ/15 ML oral solution PEG SCH ×3 (07:52→20:01)
[2021-10-11] MEDS: ALPRAZolam 0.5mg tablet PEG SCH ×2 (07:52→15:41)
[2021-10-11] MEDS: zinc sulfate 220mg capsule PO SCH ×3 (07:52→20:01)
[2021-10-11] MEDS: enoxaparin 40mg/0.4ml syringe SQ SCH ×2 (07:52→19:59)
[2021-10-11] MEDS: quetiapine 100mg tablet PEG SCH ×2 (07:52→20:00)
[2021-10-11] MEDS: lactobacillus rhamnosus 10,000 MMU CELLS/CAPSULE PEG SCH ×2 (07:52→19:59)
[2021-10-11] MEDS: sevelamer carbonate 0.8gm powder pkt PEG SCH ×2 (07:53→15:42)
[2021-10-11] MEDS: nystatin 15 GM powder TP SCH ×3 (07:53→20:55)
[2021-10-11] MEDS: pantoprazole 40MG/NS 100ML BAG 100 ML IV SCH (07:53)
[2021-10-11] MEDS: ferrous sulfate 300mg/5ml UD oral liquid PEG SCH (07:54)
[2021-10-11] MEDS: MULTIVIT-MIN/FERROUS GLUCONATE 9 MG/15 ML LIQUID PEG SCH (07:56)
[2021-10-11] MEDS: LORazepam 1 MG tablet PEG PRN ×2 (09:17→20:22)
--- NOTE | 2021-10-11 12:44 | NUR ---
Reassessment: Pt remains intubated and has been tolerating TF with GRV WNL however pt documented with N/V this morning so TF was turned off. TC with RN who reports TF has since been resumed, currently running at 20 mL/hr and working towards goal rate. Per RN pt no longer receiving Propofol. D/w RN new TF goal rate is 85 mL/hr given no additional kcal from Propofol which is already in the EMR. Pt documented with a small BM 10/10 however per verbal d/w RN pt has had about four BMs in the last 24 hours and pt does not have a rectal tube at this time. Pt receiving routine bowel care with additional PRN bowel care available. Will continue to follow and make recommendations as appropriate. Recommendations: 1) Given no Propofol, continuous Vital AF with goal rate of 85 mL/hr to provide 2040 mL total volume/day, 2448 kcal, 153 g protein, and 1654 mL water 2) Monitor Propofol rate and need to adjust TF recs 3) No water flush at this time per MD; monitor serum Na 4) Continue routine MVI and Zinc per MD 5) Routine Phos binder per MD 6) Prealbumin q Thursday/ 7) Daily scaled weights 8) Routine bowel care; utilize PRN bowel care 9) DM education once stable following extubation and official DM dx by physician; A1c 10.1% with no PMH DM in EMR Addendum: 10/11/21 at [address] Amended: Links added.
--- NOTE | 2021-10-11 13:42 | NUR ---
Pt's brother at bedside. Pt requesting brother, RYANN Quintero, to take his wallet home from belongings. Cleared with admitting dept prior to Leon obtaining wallet.
[2021-10-11] MEDS: Dextrose 10%-water IV solution 1,000 ML IV SCH (14:05)
[2021-10-11] MEDS: insulin glargine (Lantus) pen - multi-dose SQ SCH (21:03)
[2021-10-12] VITALS (28 sets, daily range): BP systolic 115–138; BP diastolic 65–91
[2021-10-12] MEDS: dexmedetomidine/D5W 100mL 100 ML IV SCH ×7 (00:32→20:25)
[2021-10-12] MEDS: oxyCODONE IR 5mg (immed. release) tablet PEG SCH ×6 (00:43→20:23)
[2021-10-12] MEDS: sevelamer carbonate 0.8gm powder pkt PEG SCH ×3 (00:43→17:30)
[2021-10-12] MEDS: gabapentin 100mg capsule PEG SCH ×3 (00:43→17:29)
[2021-10-12] MEDS: ALPRAZolam 0.5mg tablet PEG SCH ×3 (00:43→17:29)
[2021-10-12] MEDS: mineral oil/petrolatum ophthal oint EACHEYE SCH ×2 (02:06→08:09)
[2021-10-12 02:21] LABS: BASOPHILS # (AUTO) 0.1 X10'3 (0-0.2); BASOPHILS % (AUTO) 0.8 % (0-1); EOSINOPHILS # (AUTO) 0.1 X10'3 (0-0.9); EOSINOPHILS % (AUTO) 1.1 % (0-6); HEMATOCRIT 30.3 % (42.0-52.0); HEMOGLOBIN 9.7 g/dl (14.0-17.9); LYMPHOCYTES % (AUTO) 8.4 % (21-51); MEAN CORPUSCULAR HEMOGLOBIN 26.9 PG (27.0-31.0); MEAN CORPUSCULAR VOLUME 83.8 FL (78-98); MEAN PLATELET VOLUME 8.5 FL (7.4-10.4); MONOCYTES % (AUTO) 8.2 % (2-12); NEUTROPHILS # (AUTO) 9.6 X10'3 (1.8-7.7); NEUTROPHILS % (AUTO) 81.5 % (42-75); PLATELET COUNT 376 X10'3 (140-440); RED BLOOD COUNT 3.61 X10'6 (4.70-6.10); WHITE BLOOD COUNT 11.8 X10'3 (4.5-11.0)
[2021-10-12 02:46] LABS: ALANINE AMINOTRANSFERASE 12 U/L (12-78); ALBUMIN 2.7 G/DL (3.4-5.0); ALBUMIN/GLOBULIN RATIO 0.8 (1.1-1.5); ALKALINE PHOSPHATASE 119 IU/L (46-116); ANION GAP 7 (8-16); ASPARTATE AMINO TRANSFERASE 9 U/L (10-37); BILIRUBIN,TOTAL 0.3 MG/DL (0.1-1.0); BLOOD UREA NITROGEN 7 MG/DL (7-18); C-REACTIVE PROTEIN 6.05 MG/DL (0.0-0.5); CALCIUM 9.1 MG/DL (8.5-10.1); CHLORIDE 101 MMOL/L (99-107); CREATININE 0.25 MG/DL (0.60-1.10); GLUCOSE 137 MG/DL (70-104); LACTATE DEHYDROGENASE 260 U/L (85-227); POTASSIUM 3.5 MMOL/L (3.5-5.1); SODIUM 143 MMOL/L (135-145); TOTAL PROTEIN 6.2 G/DL (6.4-8.2); TRIGLYCERIDES 176 MG/DL (20-135); eGFR > 90 ML/MIN
[2021-10-12 04:10] LABS: D-DIMER 1.13 MG/L FEU (0-0.50)
[2021-10-12] MEDS: fentaNYL/NS/PF 2,500 mcg/250mL 250 ML IV PRN (05:50)
[2021-10-12] MEDS: MULTIVIT-MIN/FERROUS GLUCONATE 9 MG/15 ML LIQUID PEG SCH (08:08)
[2021-10-12] MEDS: docusate sodium 100mg/10ml UD cup PEG SCH (08:08)
[2021-10-12] MEDS: lactobacillus rhamnosus 10,000 MMU CELLS/CAPSULE PEG SCH ×2 (08:08→20:23)
[2021-10-12] MEDS: POTASSIUM CHLORIDE 20 MEQ/15 ML oral solution PEG SCH ×3 (08:08→20:24)
[2021-10-12] MEDS: zinc sulfate 220mg capsule PO SCH ×3 (08:08→20:24)
[2021-10-12] MEDS: furosemide 40mg/4ml inj IV SCH ×3 (08:09→20:23)
[2021-10-12] MEDS: enoxaparin 40mg/0.4ml syringe SQ SCH ×2 (08:10→20:23)
[2021-10-12] MEDS: nystatin 15 GM powder TP SCH ×3 (08:11→20:24)
[2021-10-12] MEDS: quetiapine 100mg tablet PEG SCH ×2 (08:12→20:23)
[2021-10-12] MEDS: pantoprazole 40MG/NS 100ML BAG 100 ML IV SCH (08:12)
[2021-10-12] MEDS: ondansetron/PF 4mg/2ml inj IV PRN (08:14)
[2021-10-12] MEDS: insulin regular, human U-100 3ml vial - multi-dose SQ SCH ×3 (08:25→20:44)
[2021-10-12] MEDS: ferrous sulfate 300mg/5ml UD oral liquid PEG SCH (08:27)
[2021-10-12] MEDS: propofol 1000mg/100ml bottle 100 ML IV SCH (09:45)
[2021-10-12] MEDS: Dextrose 10%-water IV solution 1,000 ML IV SCH (10:05)
[2021-10-12] MEDS: insulin glargine (Lantus) pen - multi-dose SQ SCH (20:46)
[2021-10-13] VITALS (29 sets, daily range): BP systolic 114–149; BP diastolic 52–97
[2021-10-13] MEDS: sevelamer carbonate 0.8gm powder pkt PEG SCH ×3 (00:27→15:52)
[2021-10-13] MEDS: gabapentin 100mg capsule PEG SCH ×3 (00:27→15:52)
[2021-10-13] MEDS: oxyCODONE IR 5mg (immed. release) tablet PEG SCH ×6 (00:27→20:03)
[2021-10-13] MEDS: ALPRAZolam 0.5mg tablet PEG SCH ×3 (00:30→15:52)
[2021-10-13] MEDS: dexmedetomidine/D5W 100mL 100 ML IV SCH ×8 (01:30→22:24)
[2021-10-13] MEDS: furosemide 40mg/4ml inj IV SCH ×4 (02:12→20:03)
[2021-10-13 03:04] LABS: BASOPHILS # (AUTO) 0.1 X10'3 (0-0.2); BASOPHILS % (AUTO) 1.3 % (0-1); EOSINOPHILS # (AUTO) 0.6 X10'3 (0-0.9); EOSINOPHILS % (AUTO) 6.5 % (0-6); HEMATOCRIT 32.1 % (42.0-52.0); HEMOGLOBIN 10.2 g/dl (14.0-17.9); LYMPHOCYTES # (AUTO) 1.1 X10'3 (1.1-4.8); LYMPHOCYTES % (AUTO) 12.9 % (21-51); MEAN CORPUSCULAR HEMOGLOBIN 26.6 PG (27.0-31.0); MEAN CORPUSCULAR HGB CONC 31.8 g/dL (33.0-36.5); MEAN CORPUSCULAR VOLUME 83.6 FL (78-98); MEAN PLATELET VOLUME 8.2 FL (7.4-10.4); MONOCYTES # (AUTO) 0.7 X10'3 (0-0.9); MONOCYTES % (AUTO) 8.2 % (2-12); NEUTROPHILS # (AUTO) 6.1 X10'3 (1.8-7.7); NEUTROPHILS % (AUTO) 71.1 % (42-75); PLATELET COUNT 383 X10'3 (140-440); RED BLOOD COUNT 3.84 X10'6 (4.70-6.10); RED CELL DISTRIBUTION WIDTH 17.2 % (11.5-14.5); WHITE BLOOD COUNT 8.6 X10'3 (4.5-11.0)
[2021-10-13] MEDS: insulin regular, human U-100 3ml vial - multi-dose SQ SCH ×4 (03:36→20:05)
[2021-10-13 03:43] LABS: D-DIMER 1.48 MG/L FEU (0-0.50)
[2021-10-13 03:49] LABS: ALANINE AMINOTRANSFERASE 12 U/L (12-78); ALBUMIN 2.9 G/DL (3.4-5.0); ALBUMIN/GLOBULIN RATIO 0.8 (1.1-1.5); ALKALINE PHOSPHATASE 122 IU/L (46-116); ANION GAP 7 (8-16); ASPARTATE AMINO TRANSFERASE 12 U/L (10-37); BILIRUBIN,TOTAL 0.2 MG/DL (0.1-1.0); CALCIUM 8.9 MG/DL (8.5-10.1); CHLORIDE 101 MMOL/L (99-107); CREATININE 0.21 MG/DL (0.60-1.10); GLUCOSE 150 MG/DL (70-104); POTASSIUM 3.6 MMOL/L (3.5-5.1); SODIUM 143 MMOL/L (135-145); TOTAL CARBON DIOXIDE 34.8 MMOL/L (24-32); TOTAL PROTEIN 6.6 G/DL (6.4-8.2); eGFR > 90 ML/MIN
[2021-10-13 03:50] LABS: C-REACTIVE PROTEIN 3.32 MG/DL (0.0-0.5); LACTATE DEHYDROGENASE 300 U/L (85-227); TRIGLYCERIDES 149 MG/DL (20-135)
[2021-10-13 03:57] LABS: BLOOD UREA NITROGEN 12 MG/DL (7-18); BUN/CREATININE RATIO 57.1 (5.4-32.0)
[2021-10-13] MEDS: Dextrose 10%-water IV solution 1,000 ML IV SCH (06:05)
[2021-10-13] MEDS: docusate sodium 100mg/10ml UD cup PEG SCH (07:28)
[2021-10-13] MEDS: POTASSIUM CHLORIDE 20 MEQ/15 ML oral solution PEG SCH ×3 (07:28→20:02)
[2021-10-13] MEDS: MULTIVIT-MIN/FERROUS GLUCONATE 9 MG/15 ML LIQUID PEG SCH (07:28)
[2021-10-13] MEDS: quetiapine 100mg tablet PEG SCH ×2 (07:29→20:03)
[2021-10-13] MEDS: enoxaparin 40mg/0.4ml syringe SQ SCH ×2 (07:29→20:02)
[2021-10-13] MEDS: nystatin 15 GM powder TP SCH ×3 (07:30→20:05)
[2021-10-13] MEDS: pantoprazole 40MG/NS 100ML BAG 100 ML IV SCH (07:30)
[2021-10-13] MEDS: lactobacillus rhamnosus 10,000 MMU CELLS/CAPSULE PEG SCH ×2 (07:30→20:03)
[2021-10-13] MEDS: ferrous sulfate 300mg/5ml UD oral liquid PEG SCH (07:30)
[2021-10-13] MEDS: zinc sulfate 220mg capsule PO SCH ×3 (07:30→20:03)
[2021-10-13] MEDS: LORazepam 1 MG tablet PEG PRN ×2 (11:24→14:36)
[2021-10-13] MEDS ORDERED: HYDROmorphone 1 mg/ml syringe IV PRN (14:00)
[2021-10-13] MEDS: ondansetron/PF 4mg/2ml inj IV PRN (14:36)
--- NOTE | 2021-10-13 18:30 | NUR ---
During pt's exam it was apparent that while he does have generalized severe weakness his Left UE and Left LE are markedly weaker than the right. barely any movement noted and he nodded yes to it feeling asleep. He also nodded that this has been normal for him since he's been more awake and was not new. Charge Nurse Alix present for this.
[2021-10-13] MEDS: insulin glargine (Lantus) pen - multi-dose SQ SCH (20:04)
[2021-10-14] VITALS (31 sets, daily range): BP systolic 116–138; BP diastolic 71–91
[2021-10-14] MEDS: oxyCODONE IR 5mg (immed. release) tablet PEG SCH ×6 (00:26→20:45)
[2021-10-14] MEDS: gabapentin 100mg capsule PEG SCH ×3 (00:27→16:09)
[2021-10-14] MEDS: sevelamer carbonate 0.8gm powder pkt PEG SCH ×3 (00:27→16:09)
[2021-10-14] MEDS: ALPRAZolam 0.5mg tablet PEG SCH ×3 (00:27→16:09)
[2021-10-14] MEDS: dexmedetomidine/D5W 100mL 100 ML IV SCH ×8 (00:54→22:16)
--- NOTE | 2021-10-14 01:14 | NUR ---
Weekly wound photos taken and placed in chart.
[2021-10-14 01:56] LABS: BASOPHILS # (AUTO) 0.1 X10'3 (0-0.2); EOSINOPHILS # (AUTO) 0.4 X10'3 (0-0.9); EOSINOPHILS % (AUTO) 3.7 % (0-6); HEMATOCRIT 31.7 % (42.0-52.0); HEMOGLOBIN 10.3 g/dl (14.0-17.9); LYMPHOCYTES # (AUTO) 1.2 X10'3 (1.1-4.8); LYMPHOCYTES % (AUTO) 11.5 % (21-51); MEAN CORPUSCULAR HGB CONC 32.5 g/dL (33.0-36.5); MEAN CORPUSCULAR VOLUME 83.1 FL (78-98); MEAN PLATELET VOLUME 7.9 FL (7.4-10.4); MONOCYTES # (AUTO) 0.9 X10'3 (0-0.9); MONOCYTES % (AUTO) 8.5 % (2-12); NEUTROPHILS # (AUTO) 7.7 X10'3 (1.8-7.7); NEUTROPHILS % (AUTO) 75.3 % (42-75); PLATELET COUNT 415 X10'3 (140-440); RED BLOOD COUNT 3.81 X10'6 (4.70-6.10); RED CELL DISTRIBUTION WIDTH 17.5 % (11.5-14.5); WHITE BLOOD COUNT 10.2 X10'3 (4.5-11.0)
[2021-10-14] MEDS: insulin regular, human U-100 3ml vial - multi-dose SQ SCH ×4 (01:56→21:39)
[2021-10-14] MEDS: furosemide 40mg/4ml inj IV SCH ×2 (01:57→08:24)
[2021-10-14] MEDS: Dextrose 10%-water IV solution 1,000 ML IV SCH ×2 (02:05→22:05)
[2021-10-14 02:33] LABS: D-DIMER 1.22 MG/L FEU (0-0.50)
[2021-10-14 02:45] LABS: ALANINE AMINOTRANSFERASE 11 U/L (12-78); ALBUMIN 3.1 G/DL (3.4-5.0); ALBUMIN/GLOBULIN RATIO 0.8 (1.1-1.5); ALKALINE PHOSPHATASE 122 IU/L (46-116); ANION GAP 7 (8-16); ASPARTATE AMINO TRANSFERASE 12 U/L (10-37); BILIRUBIN,TOTAL 0.2 MG/DL (0.1-1.0); BLOOD UREA NITROGEN 19 MG/DL (7-18); BUN/CREATININE RATIO 67.9 (5.4-32.0); CALCIUM 9.3 MG/DL (8.5-10.1); CHLORIDE 104 MMOL/L (99-107); CREATININE 0.28 MG/DL (0.60-1.10); GLUCOSE 118 MG/DL (70-104); LACTATE DEHYDROGENASE 317 U/L (85-227); MAGNESIUM 1.7 MG/DL (1.5-2.4); PHOSPHORUS 4.5 MG/DL (2.3-4.5); POTASSIUM 3.7 MMOL/L (3.5-5.1); PREALBUMIN 26.5 MG/DL (19-36); SODIUM 145 MMOL/L (135-145); TOTAL PROTEIN 6.8 G/DL (6.4-8.2); TRIGLYCERIDES 111 MG/DL (20-135); eGFR > 90 ML/MIN
[2021-10-14] MEDS: MULTIVIT-MIN/FERROUS GLUCONATE 9 MG/15 ML LIQUID PEG SCH (08:22)
[2021-10-14] MEDS: docusate sodium 100mg/10ml UD cup PEG SCH (08:22)
[2021-10-14] MEDS: ferrous sulfate 300mg/5ml UD oral liquid PEG SCH (08:22)
[2021-10-14] MEDS: pantoprazole 40MG/NS 100ML BAG 100 ML IV SCH (08:22)
[2021-10-14] MEDS: POTASSIUM CHLORIDE 20 MEQ/15 ML oral solution PEG SCH ×3 (08:23→20:45)
[2021-10-14] MEDS: zinc sulfate 220mg capsule PO SCH ×3 (08:23→20:45)
[2021-10-14] MEDS: enoxaparin 40mg/0.4ml syringe SQ SCH ×2 (08:23→20:46)
[2021-10-14] MEDS: lactobacillus rhamnosus 10,000 MMU CELLS/CAPSULE PEG SCH ×2 (08:24→20:45)
[2021-10-14] MEDS: quetiapine 100mg tablet PEG SCH ×2 (08:24→20:45)
[2021-10-14] MEDS: nystatin 15 GM powder TP SCH ×3 (08:26→20:46)
[2021-10-14] MEDS ORDERED: furosemide 20 MG/2 ML vial IV SCH (14:00)
[2021-10-14] MEDS: insulin glargine (Lantus) pen - multi-dose SQ SCH (21:35)
[2021-10-15] VITALS (38 sets, daily range): BP systolic 108–125; BP diastolic 70–83
[2021-10-15] MEDS: oxyCODONE IR 5mg (immed. release) tablet PEG SCH ×7 (00:02→23:54)
[2021-10-15] MEDS: sevelamer carbonate 0.8gm powder pkt PEG SCH ×4 (00:03→23:54)
[2021-10-15] MEDS: ALPRAZolam 0.5mg tablet PEG SCH ×4 (00:03→23:54)
[2021-10-15] MEDS: gabapentin 100mg capsule PEG SCH ×4 (00:03→23:54)
[2021-10-15] MEDS: dexmedetomidine/D5W 100mL 100 ML IV SCH ×8 (01:24→23:54)
[2021-10-15 02:35] LABS: BASOPHILS # (AUTO) 0.1 X10'3 (0-0.2); BASOPHILS % (AUTO) 0.9 % (0-1); EOSINOPHILS # (AUTO) 0.8 X10'3 (0-0.9); EOSINOPHILS % (AUTO) 8.1 % (0-6); HEMATOCRIT 32.1 % (42.0-52.0); HEMOGLOBIN 10.3 g/dl (14.0-17.9); LYMPHOCYTES # (AUTO) 1.3 X10'3 (1.1-4.8); LYMPHOCYTES % (AUTO) 13.8 % (21-51); MEAN CORPUSCULAR HEMOGLOBIN 26.8 PG (27.0-31.0); MEAN CORPUSCULAR HGB CONC 32.1 g/dL (33.0-36.5); MEAN CORPUSCULAR VOLUME 83.3 FL (78-98); MEAN PLATELET VOLUME 8.2 FL (7.4-10.4); MONOCYTES # (AUTO) 0.8 X10'3 (0-0.9); MONOCYTES % (AUTO) 8.6 % (2-12); NEUTROPHILS # (AUTO) 6.7 X10'3 (1.8-7.7); NEUTROPHILS % (AUTO) 68.6 % (42-75); PLATELET COUNT 413 X10'3 (140-440); RED BLOOD COUNT 3.86 X10'6 (4.70-6.10); RED CELL DISTRIBUTION WIDTH 17.5 % (11.5-14.5); WHITE BLOOD COUNT 9.7 X10'3 (4.5-11.0)
[2021-10-15 02:44] LABS: D-DIMER 1.26 MG/L FEU (0-0.50)
[2021-10-15 02:49] LABS: ALANINE AMINOTRANSFERASE 11 U/L (12-78); ALBUMIN 3.1 G/DL (3.4-5.0); ALBUMIN/GLOBULIN RATIO 0.8 (1.1-1.5); ALKALINE PHOSPHATASE 121 IU/L (46-116); ANION GAP 9 (8-16); ASPARTATE AMINO TRANSFERASE 11 U/L (10-37); BILIRUBIN,TOTAL 0.3 MG/DL (0.1-1.0); BLOOD UREA NITROGEN 23 MG/DL (7-18); CALCIUM 9.6 MG/DL (8.5-10.1); CHLORIDE 103 MMOL/L (99-107); CREATININE 0.25 MG/DL (0.60-1.10); GLUCOSE 173 MG/DL (70-104); POTASSIUM 3.9 MMOL/L (3.5-5.1); SODIUM 143 MMOL/L (135-145); TOTAL CARBON DIOXIDE 30.8 MMOL/L (24-32); TOTAL PROTEIN 6.8 G/DL (6.4-8.2); eGFR > 90 ML/MIN
[2021-10-15 02:50] LABS: C-REACTIVE PROTEIN 1.67 MG/DL (0.0-0.5); LACTATE DEHYDROGENASE 355 U/L (85-227)
[2021-10-15] MEDS: insulin regular, human U-100 3ml vial - multi-dose SQ SCH ×4 (03:01→22:05)
--- NOTE | 2021-10-15 06:17 | NUR ---
Problems reprioritized. Patient report given, questions answered & plan of care reviewed with ANDRÉS Souza.
[2021-10-15] MEDS: nystatin 15 GM powder TP SCH ×3 (08:21→22:07)
[2021-10-15] MEDS: lactobacillus rhamnosus 10,000 MMU CELLS/CAPSULE PEG SCH ×2 (08:22→19:31)
[2021-10-15] MEDS: ferrous sulfate 300mg/5ml UD oral liquid PEG SCH (08:22)
[2021-10-15] MEDS: zinc sulfate 220mg capsule PO SCH ×3 (08:22→21:00)
[2021-10-15] MEDS: pantoprazole 40MG/NS 100ML BAG 100 ML IV SCH (08:22)
[2021-10-15] MEDS: docusate sodium 100mg/10ml UD cup PEG SCH (08:22)
[2021-10-15] MEDS: POTASSIUM CHLORIDE 20 MEQ/15 ML oral solution PEG SCH ×3 (08:22→22:07)
[2021-10-15] MEDS: MULTIVIT-MIN/FERROUS GLUCONATE 9 MG/15 ML LIQUID PEG SCH (08:22)
[2021-10-15] MEDS: quetiapine 100mg tablet PEG SCH ×2 (08:22→19:32)
[2021-10-15] MEDS: enoxaparin 40mg/0.4ml syringe SQ SCH ×2 (08:22→19:33)
[2021-10-15 08:47] LABS: ANISOCYTOSIS 1+; PLATELET ESTIMATE NORMAL
[2021-10-15 08:48] LABS: ELLIPTOCYTES FEW; SCHISTOCYTES FEW; TEAR DROP CELLS FEW
--- NOTE | 2021-10-15 10:51 | NUR ---
Reassessment: Pt remains intubated and tolerating TF at goal rate with GRV WNL. LBM 10/14, receiving routine bowel care with additional PRN bowel care available. No changes to nutrition recommendations at this time. Will continue to follow. Recommendations: 1) Given no Propofol, continuous Vital AF with goal rate of 85 mL/hr to provide 2040 mL total volume/day, 2448 kcal, 153 g protein, and 1654 mL water 2) IF Propofol resumed, monitor rate and need to adjust TF recs 3) No water flush at this time per MD; monitor serum Na 4) Continue routine MVM with Iron and Zinc per MD 5) Routine Phos binder per MD 6) Prealbumin q Thursday/ 7) Daily scaled weights 8) Routine bowel care; utilize PRN bowel care 9) DM education once stable following extubation and official DM dx by physician; A1c 10.1% with no PMH DM in EMR; consider f/u A1c given almost three months since initial A1c was obtained Addendum: 10/15/21 at [address] Amended: Links added.
[2021-10-15] MEDS: LORazepam 1 MG tablet PEG PRN (13:14)
[2021-10-15] MEDS: insulin glargine (Lantus) pen - multi-dose SQ SCH (22:02)
[2021-10-16] VITALS (36 sets, daily range): BP systolic 116–145; BP diastolic 76–98
[2021-10-16] MEDS: dexmedetomidine/D5W 100mL 100 ML IV SCH ×10 (02:19→23:58)
[2021-10-16 03:29] LABS: BASOPHILS # (AUTO) 0.1 X10'3 (0-0.2); BASOPHILS % (AUTO) 1.2 % (0-1); HEMATOCRIT 33.3 % (42.0-52.0); HEMOGLOBIN 10.6 g/dl (14.0-17.9); LYMPHOCYTES # (AUTO) 1.2 X10'3 (1.1-4.8); LYMPHOCYTES % (AUTO) 13.6 % (21-51); MEAN CORPUSCULAR HEMOGLOBIN 26.8 PG (27.0-31.0); MEAN CORPUSCULAR HGB CONC 31.8 g/dL (33.0-36.5); MEAN CORPUSCULAR VOLUME 84.2 FL (78-98); MEAN PLATELET VOLUME 8.4 FL (7.4-10.4); MONOCYTES # (AUTO) 0.7 X10'3 (0-0.9); MONOCYTES % (AUTO) 8.3 % (2-12); NEUTROPHILS # (AUTO) 5.9 X10'3 (1.8-7.7); NEUTROPHILS % (AUTO) 65.9 % (42-75); PLATELET COUNT 419 X10'3 (140-440); RED BLOOD COUNT 3.95 X10'6 (4.70-6.10); RED CELL DISTRIBUTION WIDTH 17.8 % (11.5-14.5); WHITE BLOOD COUNT 8.9 X10'3 (4.5-11.0)
[2021-10-16 03:49] LABS: ALANINE AMINOTRANSFERASE 16 U/L (12-78); ALBUMIN 3.2 G/DL (3.4-5.0); ALBUMIN/GLOBULIN RATIO 0.9 (1.1-1.5); ALKALINE PHOSPHATASE 123 IU/L (46-116); ANION GAP 6 (8-16); ASPARTATE AMINO TRANSFERASE 15 U/L (10-37); BILIRUBIN,TOTAL 0.2 MG/DL (0.1-1.0); BLOOD UREA NITROGEN 17 MG/DL (7-18); C-REACTIVE PROTEIN 1.45 MG/DL (0.0-0.5); CALCIUM 9.3 MG/DL (8.5-10.1); CHLORIDE 104 MMOL/L (99-107); GLUCOSE 92 MG/DL (70-104); LACTATE DEHYDROGENASE 369 U/L (85-227); POTASSIUM 4.3 MMOL/L (3.5-5.1); SODIUM 139 MMOL/L (135-145); TOTAL CARBON DIOXIDE 29.5 MMOL/L (24-32); TOTAL PROTEIN 6.8 G/DL (6.4-8.2); eGFR > 90 ML/MIN
[2021-10-16] MEDS: oxyCODONE IR 5mg (immed. release) tablet PEG SCH ×3 (04:49→12:19)
[2021-10-16] MEDS: insulin regular, human U-100 3ml vial - multi-dose SQ SCH ×2 (08:00→16:40)
[2021-10-16] MEDS: POTASSIUM CHLORIDE 20 MEQ/15 ML oral solution PEG SCH (08:00)
[2021-10-16] MEDS: pantoprazole 40MG/NS 100ML BAG 100 ML IV SCH (08:13)
[2021-10-16] MEDS: sevelamer carbonate 0.8gm powder pkt PEG SCH ×3 (08:16→23:57)
[2021-10-16] MEDS: zinc sulfate 220mg capsule PO SCH ×3 (08:16→20:16)
[2021-10-16] MEDS: ALPRAZolam 0.5mg tablet PEG SCH (08:16)
[2021-10-16] MEDS: gabapentin 100mg capsule PEG SCH ×3 (08:17→23:57)
[2021-10-16] MEDS: quetiapine 100mg tablet PEG SCH ×2 (08:17→20:15)
[2021-10-16] MEDS: MULTIVIT-MIN/FERROUS GLUCONATE 9 MG/15 ML LIQUID PEG SCH (08:17)
[2021-10-16] MEDS: lactobacillus rhamnosus 10,000 MMU CELLS/CAPSULE PEG SCH ×2 (08:17→20:15)
[2021-10-16] MEDS: docusate sodium 100mg/10ml UD cup PEG SCH (08:17)
[2021-10-16] MEDS: enoxaparin 40mg/0.4ml syringe SQ SCH ×2 (08:18→20:16)
[2021-10-16] MEDS: nystatin 15 GM powder TP SCH ×3 (08:18→20:16)
[2021-10-16] MEDS: ferrous sulfate 300mg/5ml UD oral liquid PEG SCH (08:18)
[2021-10-16] MEDS: LORazepam 1 MG tablet PEG PRN (09:09)
[2021-10-16] MEDS: cloNIDine 0.1 mg tablet PEG SCH ×3 (12:21→23:57)
[2021-10-16] MEDS ORDERED: fentaNYL 25MCG/hour patch.TD72 TD SCH (15:00)
--- NOTE | 2021-10-16 15:06 | NUR ---
BM Small BM smear cleaned at patient/brothers request.
[2021-10-16] MEDS: LORazepam 1 MG tablet PEG SCH ×2 (15:28→23:57)
[2021-10-16] MEDS ORDERED: HYDROmorphone 1 mg/ml syringe SQ ONE (17:30)
[2021-10-16] MEDS ORDERED: iohexol 350MG/ML 100ml bottle IV ONE (17:47)
[2021-10-16] MEDS: insulin glargine (Lantus) pen - multi-dose SQ SCH (20:33)
[2021-10-16] MEDS: dextrose 50%-water 50ml dispensing syringe IV PRN (20:35)
[2021-10-16] MEDS: LORazepam 2 mg/ml vial IV PRN (23:57)
[2021-10-17] VITALS (34 sets, daily range): BP systolic 84–151; BP diastolic 43–109
[2021-10-17] MEDS: insulin regular, human U-100 3ml vial - multi-dose SQ SCH ×3 (03:30→21:21)
[2021-10-17 04:05] LABS: EOSINOPHILS # (AUTO) 0.6 X10'3 (0-0.9); HEMOGLOBIN 10.6 g/dl (14.0-17.9); MONOCYTES # (AUTO) 0.6 X10'3 (0-0.9)
[2021-10-17] MEDS: dexmedetomidine/D5W 100mL 100 ML IV SCH ×6 (04:05→21:04)
[2021-10-17 04:07] LABS: BASOPHILS # (AUTO) 0.1 X10'3 (0-0.2); BASOPHILS % (AUTO) 1.1 % (0-1); EOSINOPHILS % (AUTO) 6.4 % (0-6); HEMATOCRIT 33.8 % (42.0-52.0); LYMPHOCYTES # (AUTO) 1.1 X10'3 (1.1-4.8); LYMPHOCYTES % (AUTO) 11.7 % (21-51); MEAN CORPUSCULAR HEMOGLOBIN 26.6 PG (27.0-31.0); MEAN CORPUSCULAR HGB CONC 31.4 g/dL (33.0-36.5); MEAN CORPUSCULAR VOLUME 84.6 FL (78-98); MEAN PLATELET VOLUME 8.7 FL (7.4-10.4); MONOCYTES % (AUTO) 6.6 % (2-12); NEUTROPHILS # (AUTO) 6.9 X10'3 (1.8-7.7); NEUTROPHILS % (AUTO) 74.2 % (42-75); PLATELET COUNT 336 X10'3 (140-440); RED BLOOD COUNT 3.99 X10'6 (4.70-6.10); RED CELL DISTRIBUTION WIDTH 17.5 % (11.5-14.5); WHITE BLOOD COUNT 9.4 X10'3 (4.5-11.0)
[2021-10-17 04:13] LABS: D-DIMER 1.06 MG/L FEU (0-0.50)
[2021-10-17 04:17] LABS: ALBUMIN 3.1 G/DL (3.4-5.0); ANION GAP 8 (8-16); BLOOD UREA NITROGEN 17 MG/DL (7-18); C-REACTIVE PROTEIN 1.17 MG/DL (0.0-0.5); CALCIUM 9.5 MG/DL (8.5-10.1); CHLORIDE 103 MMOL/L (99-107); CREATININE 0.27 MG/DL (0.60-1.10); GLUCOSE 163 MG/DL (70-104); LACTATE DEHYDROGENASE 345 U/L (85-227); MAGNESIUM 1.9 MG/DL (1.5-2.4); PHOSPHORUS 4.8 MG/DL (2.3-4.5); SODIUM 138 MMOL/L (135-145); TOTAL CARBON DIOXIDE 27.5 MMOL/L (24-32); eGFR > 90 ML/MIN
[2021-10-17] MEDS: pantoprazole 40MG/NS 100ML BAG 100 ML IV SCH (07:44)
[2021-10-17] MEDS: MULTIVIT-MIN/FERROUS GLUCONATE 9 MG/15 ML LIQUID PEG SCH (07:45)
[2021-10-17] MEDS: enoxaparin 40mg/0.4ml syringe SQ SCH ×3 (07:45→19:45)
[2021-10-17] MEDS: docusate sodium 100mg/10ml UD cup PEG SCH (07:45)
[2021-10-17] MEDS: zinc sulfate 220mg capsule PO SCH ×3 (07:46→19:44)
[2021-10-17] MEDS: lactobacillus rhamnosus 10,000 MMU CELLS/CAPSULE PEG SCH ×2 (07:46→19:44)
[2021-10-17] MEDS: ferrous sulfate 300mg/5ml UD oral liquid PEG SCH (07:46)
[2021-10-17] MEDS: quetiapine 100mg tablet PEG SCH ×2 (07:46→19:44)
[2021-10-17] MEDS: cloNIDine 0.1 mg tablet PEG SCH ×2 (07:46→19:40)
[2021-10-17] MEDS: gabapentin 100mg capsule PEG SCH ×2 (07:46→17:43)
[2021-10-17] MEDS: sevelamer carbonate 0.8gm powder pkt PEG SCH ×2 (07:48→19:44)
[2021-10-17] MEDS: LORazepam 1 MG tablet PEG SCH ×2 (07:48→17:43)
[2021-10-17] MEDS: nystatin 15 GM powder TP SCH ×3 (07:49→19:45)
[2021-10-17] MEDS ORDERED: LIDOcaine 1% 30ml preserv. free vial SQ STA (11:03)
[2021-10-17] MEDS ORDERED: normal saline 1000ml 1,000 ML IV ONE (12:35)
[2021-10-17] MEDS: LORazepam 2 mg/ml vial IV PRN (19:45)
[2021-10-17] MEDS: insulin glargine (Lantus) pen - multi-dose SQ SCH (21:22)
[2021-10-17] MEDS ORDERED: haloperidol lactate 5mg/ml inj IM ONE (21:50)
--- NOTE | 2021-10-17 21:56 | NUR ---
Pt got confused and was requesting to go outside and have a beer. reoriented pt to his condition/abilities, but he got more agitated and was refusing care. I was able to talk him into getting care. He eventually got worse and was getting upset calling nurse "loco" to which again I reoriented him and warned him about abusive language. He then got quiet and tried to pull his chest tubes out and was actually taking his vent off the trach. MD called, orders received and carried out. He's now on soft limb restraints and criteria for discontinuation was explained to him. Will continue to monitor. Charge nurse made aware of all events.
[2021-10-18] VITALS (34 sets, daily range): BP systolic 86–136; BP diastolic 43–80
[2021-10-18] MEDS: sevelamer carbonate 0.8gm powder pkt PEG SCH ×4 (00:40→23:21)
[2021-10-18] MEDS: gabapentin 100mg capsule PEG SCH ×4 (00:41→23:21)
[2021-10-18] MEDS: LORazepam 1 MG tablet PEG SCH ×4 (00:41→23:21)
[2021-10-18] MEDS: dexmedetomidine/D5W 100mL 100 ML IV SCH ×8 (00:41→23:34)
[2021-10-18] MEDS: LORazepam 2 mg/ml vial IV PRN ×2 (00:42→05:35)
[2021-10-18] MEDS: insulin regular, human U-100 3ml vial - multi-dose SQ SCH ×2 (02:45→22:23)
[2021-10-18 03:46] LABS: BASOPHILS # (AUTO) 0.1 X10'3 (0-0.2); BASOPHILS % (AUTO) 0.8 % (0-1); EOSINOPHILS # (AUTO) 0.5 X10'3 (0-0.9); EOSINOPHILS % (AUTO) 4.9 % (0-6); HEMATOCRIT 28.3 % (42.0-52.0); HEMOGLOBIN 9.1 g/dl (14.0-17.9); LYMPHOCYTES # (AUTO) 1.2 X10'3 (1.1-4.8); LYMPHOCYTES % (AUTO) 10.8 % (21-51); MEAN CORPUSCULAR HEMOGLOBIN 26.9 PG (27.0-31.0); MEAN CORPUSCULAR HGB CONC 32.2 g/dL (33.0-36.5); MEAN CORPUSCULAR VOLUME 83.8 FL (78-98); MEAN PLATELET VOLUME 8.9 FL (7.4-10.4); MONOCYTES # (AUTO) 0.8 X10'3 (0-0.9); MONOCYTES % (AUTO) 7.4 % (2-12); NEUTROPHILS # (AUTO) 8.2 X10'3 (1.8-7.7); NEUTROPHILS % (AUTO) 76.1 % (42-75); PLATELET COUNT 351 X10'3 (140-440); RED BLOOD COUNT 3.38 X10'6 (4.70-6.10); RED CELL DISTRIBUTION WIDTH 17.6 % (11.5-14.5); WHITE BLOOD COUNT 10.8 X10'3 (4.5-11.0)
[2021-10-18 03:58] LABS: D-DIMER 1.47 MG/L FEU (0-0.50)
[2021-10-18 04:02] LABS: ALBUMIN 2.9 G/DL (3.4-5.0); ANION GAP 7 (8-16); BLOOD UREA NITROGEN 18 MG/DL (7-18); BUN/CREATININE RATIO 85.7 (5.4-32.0); C-REACTIVE PROTEIN 3.72 MG/DL (0.0-0.5); CHLORIDE 107 MMOL/L (99-107); CREATININE 0.21 MG/DL (0.60-1.10); GLUCOSE 107 MG/DL (70-104); LACTATE DEHYDROGENASE 342 U/L (85-227); MAGNESIUM 1.7 MG/DL (1.5-2.4); POTASSIUM 3.4 MMOL/L (3.5-5.1); SODIUM 142 MMOL/L (135-145); TOTAL CARBON DIOXIDE 27.7 MMOL/L (24-32); eGFR > 90 ML/MIN
[2021-10-18] MEDS: pantoprazole 40MG/NS 100ML BAG 100 ML IV SCH (08:07)
[2021-10-18] MEDS: quetiapine 100mg tablet PEG SCH ×2 (08:08→19:35)
[2021-10-18] MEDS: zinc sulfate 220mg capsule PO SCH ×3 (08:08→19:36)
[2021-10-18] MEDS: enoxaparin 40mg/0.4ml syringe SQ SCH ×2 (08:08→19:36)
[2021-10-18] MEDS: cloNIDine 0.1 mg tablet PEG SCH ×4 (08:08→23:21)
[2021-10-18] MEDS: lactobacillus rhamnosus 10,000 MMU CELLS/CAPSULE PEG SCH ×2 (08:08→19:35)
[2021-10-18] MEDS: nystatin 15 GM powder TP SCH ×3 (08:09→19:36)
[2021-10-18] MEDS: docusate sodium 100mg/10ml UD cup PEG SCH (08:09)
[2021-10-18] MEDS: ferrous sulfate 300mg/5ml UD oral liquid PEG SCH (08:09)
[2021-10-18] MEDS: MULTIVIT-MIN/FERROUS GLUCONATE 9 MG/15 ML LIQUID PEG SCH (08:12)
[2021-10-18] MEDS: acetaminophen 325mg/10.15ml oral unit dose solution PEG PRN (09:18)
[2021-10-18] MEDS: chlordiazePOXIDE 25mg capsule PO PRN ×2 (09:58→23:27)
--- NOTE | 2021-10-18 11:14 | NUR ---
Reassessment: Pt remains intubated and tolerating TF at goal rate with GRV WNL. Noted pt with a small/smear BM on 10/16 per bus trolley and taxi instructor though per verbal d/w with RN today pt had two BMs last night (10/17). Pt receiving routine bowel care with additional PRN bowel care available. No changes to nutrition recommendations at this time. Will continue to follow. Recommendations: 1) Continuous Vital AF with goal rate of 85 mL/hr to provide 2040 mL total volume/day, 2448 kcal, 153 g protein, and 1654 mL water 2) IF Propofol resumed, monitor rate and need to adjust TF recs 3) No water flush at this time per MD; monitor serum Na 4) Continue routine MVM with Iron and Zinc per MD 5) Routine Phos binder per MD 6) Prealbumin q Thursday/ 7) Daily scaled weights 8) Routine bowel care; utilize PRN bowel care 9) DM education once stable following extubation and official DM dx by physician; A1c 10.1% with no PMH DM in EMR; consider f/u A1c given almost three months since initial A1c was obtained Addendum: 10/18/21 at [address] Amended: Links added.
[2021-10-18] MEDS: piperacillin/tazo 3.375gm/50ml 50 ML IV SCH ×3 (12:01→23:20)
[2021-10-18] MEDS: VANCOMYCIN 1GM/200ML IVPB 200 ML IV SCH ×2 (12:02→19:37)
[2021-10-18] MEDS: potassium Cl 20mEq/100mL bag 100 ML IV PRN ×2 (15:12→16:40)
[2021-10-18] MEDS: insulin glargine (Lantus) pen - multi-dose SQ SCH (21:00)
[2021-10-19] VITALS (34 sets, daily range): BP systolic 97–141; BP diastolic 55–86
[2021-10-19] MEDS: insulin regular, human U-100 3ml vial - multi-dose SQ SCH ×4 (02:22→20:26)
[2021-10-19 02:42] LABS: D-DIMER 0.76 MG/L FEU (0-0.50)
[2021-10-19 02:45] LABS: C-REACTIVE PROTEIN 10.53 MG/DL (0.0-0.5); LACTATE DEHYDROGENASE 282 U/L (85-227)
[2021-10-19] MEDS: VANCOMYCIN 1GM/200ML IVPB 200 ML IV SCH (04:14)
[2021-10-19] MEDS: dexmedetomidine/D5W 100mL 100 ML IV SCH ×3 (04:14→12:49)
[2021-10-19 04:29] LABS: BASOPHILS # (AUTO) 0.1 X10'3 (0-0.2); BASOPHILS % (AUTO) 0.9 % (0-1); EOSINOPHILS # (AUTO) 1.3 X10'3 (0-0.9); HEMOGLOBIN 8.6 g/dl (14.0-17.9); LYMPHOCYTES # (AUTO) 0.6 X10'3 (1.1-4.8); LYMPHOCYTES % (AUTO) 6.1 % (21-51); MEAN CORPUSCULAR HEMOGLOBIN 26.8 PG (27.0-31.0); MEAN CORPUSCULAR HGB CONC 31.8 g/dL (33.0-36.5); MEAN CORPUSCULAR VOLUME 84.2 FL (78-98); MEAN PLATELET VOLUME 9.2 FL (7.4-10.4); MONOCYTES # (AUTO) 0.6 X10'3 (0-0.9); MONOCYTES % (AUTO) 5.7 % (2-12); NEUTROPHILS # (AUTO) 7.6 X10'3 (1.8-7.7); NEUTROPHILS % (AUTO) 74.3 % (42-75); PLATELET COUNT 334 X10'3 (140-440); RED BLOOD COUNT 3.21 X10'6 (4.70-6.10); RED CELL DISTRIBUTION WIDTH 17.7 % (11.5-14.5); WHITE BLOOD COUNT 10.2 X10'3 (4.5-11.0)
[2021-10-19 04:37] LABS: ALBUMIN 2.8 G/DL (3.4-5.0); ANION GAP 12 (8-16); BLOOD UREA NITROGEN 14 MG/DL (7-18); BUN/CREATININE RATIO 42.4 (5.4-32.0); CALCIUM 8.8 MG/DL (8.5-10.1); CHLORIDE 103 MMOL/L (99-107); CREATININE 0.33 MG/DL (0.60-1.10); GLUCOSE 184 MG/DL (70-104); MAGNESIUM 1.8 MG/DL (1.5-2.4); PHOSPHORUS 4.5 MG/DL (2.3-4.5); POTASSIUM 3.3 MMOL/L (3.5-5.1); SODIUM 140 MMOL/L (135-145); TOTAL CARBON DIOXIDE 25.5 MMOL/L (24-32); eGFR > 90 ML/MIN
[2021-10-19] MEDS: LORazepam 1 MG tablet PEG SCH ×2 (08:00→15:50)
[2021-10-19] MEDS: ferrous sulfate 300mg/5ml UD oral liquid PEG SCH (08:00)
[2021-10-19] MEDS: zinc sulfate 220mg capsule PO SCH ×3 (08:00→20:04)
[2021-10-19] MEDS: lactobacillus rhamnosus 10,000 MMU CELLS/CAPSULE PEG SCH ×2 (08:00→19:48)
[2021-10-19] MEDS: docusate sodium 100mg/10ml UD cup PEG SCH (08:00)
[2021-10-19] MEDS: quetiapine 100mg tablet PEG SCH ×2 (08:00→19:48)
[2021-10-19] MEDS: gabapentin 100mg capsule PEG SCH ×2 (08:00→15:20)
[2021-10-19] MEDS: sevelamer carbonate 0.8gm powder pkt PEG SCH ×2 (08:00→15:20)
[2021-10-19] MEDS: cloNIDine 0.1 mg tablet PEG SCH ×2 (08:00→15:20)
[2021-10-19] MEDS: pantoprazole 40MG/NS 100ML BAG 100 ML IV SCH (08:01)
[2021-10-19] MEDS: nystatin 15 GM powder TP SCH ×3 (08:03→21:51)
[2021-10-19] MEDS: piperacillin/tazo 3.375gm/50ml 50 ML IV SCH ×2 (08:03→15:19)
[2021-10-19] MEDS: enoxaparin 40mg/0.4ml syringe SQ SCH ×2 (08:04→19:51)
[2021-10-19] MEDS: oxyCODONE IR 5mg (immed. release) tablet PO PRN (09:30)
[2021-10-19] MEDS: MULTIVIT-MIN/FERROUS GLUCONATE 9 MG/15 ML LIQUID PEG SCH (09:39)
[2021-10-19] MEDS ORDERED: VANCOMYCIN LEVEL IV ONE (11:30)
[2021-10-19] MEDS: chlordiazePOXIDE 25mg capsule PO PRN ×2 (12:50→19:48)
[2021-10-19] MEDS: VANCOmycin 1250MG/NS 250ml Bag 250 ML IV SCH ×2 (12:50→20:29)
[2021-10-19] MEDS: acetaminophen 325mg/10.15ml oral unit dose solution PEG PRN ×2 (12:50→19:55)
[2021-10-19] MEDS ORDERED: fentaNYL 25MCG/hour patch.TD72 TD SCH (15:00)
[2021-10-19] MEDS: fentaNYL 75 MCG/hour patch.TD72 TD SCH (16:42)
--- NOTE | 2021-10-19 18:36 | NUR ---
Patient in room CICU 2008. I have received report from ANDRÉS Reeves and had the opportunity to ask questions and assume patient care. Family at bedside at time of report no questions.
[2021-10-19] MEDS: insulin glargine (Lantus) pen - multi-dose SQ SCH (20:27)
[2021-10-20] VITALS (33 sets, daily range): BP systolic 113–150; BP diastolic 63–96
[2021-10-20] MEDS: piperacillin/tazo 3.375gm/50ml 50 ML IV SCH ×4 (00:28→23:39)
[2021-10-20] MEDS: cloNIDine 0.1 mg tablet PEG SCH ×4 (00:28→23:39)
[2021-10-20] MEDS: gabapentin 100mg capsule PEG SCH ×4 (00:28→23:39)
[2021-10-20] MEDS: LORazepam 1 MG tablet PEG SCH ×4 (00:28→23:39)
[2021-10-20] MEDS: sevelamer carbonate 0.8gm powder pkt PEG SCH ×4 (00:29→23:39)
[2021-10-20 03:13] LABS: BASOPHILS # (AUTO) 0.1 X10'3 (0-0.2); BASOPHILS % (AUTO) 0.7 % (0-1); EOSINOPHILS # (AUTO) 1.1 X10'3 (0-0.9); EOSINOPHILS % (AUTO) 14.3 % (0-6); HEMATOCRIT 25.5 % (42.0-52.0); HEMOGLOBIN 8.4 g/dl (14.0-17.9); LYMPHOCYTES # (AUTO) 0.9 X10'3 (1.1-4.8); MEAN CORPUSCULAR HEMOGLOBIN 27.3 PG (27.0-31.0); MEAN CORPUSCULAR HGB CONC 32.7 g/dL (33.0-36.5); MEAN CORPUSCULAR VOLUME 83.3 FL (78-98); MEAN PLATELET VOLUME 8.3 FL (7.4-10.4); MONOCYTES # (AUTO) 0.6 X10'3 (0-0.9); MONOCYTES % (AUTO) 6.9 % (2-12); NEUTROPHILS # (AUTO) 5.4 X10'3 (1.8-7.7); NEUTROPHILS % (AUTO) 67.1 % (42-75); PLATELET COUNT 337 X10'3 (140-440); RED BLOOD COUNT 3.06 X10'6 (4.70-6.10); RED CELL DISTRIBUTION WIDTH 17.6 % (11.5-14.5)
[2021-10-20] MEDS: insulin regular, human U-100 3ml vial - multi-dose SQ SCH ×4 (03:34→21:46)
[2021-10-20 03:50] LABS: ALANINE AMINOTRANSFERASE 12 U/L (12-78); ALBUMIN 2.7 G/DL (3.4-5.0); ALBUMIN/GLOBULIN RATIO 0.8 (1.1-1.5); ALKALINE PHOSPHATASE 120 IU/L (46-116); ANION GAP 7 (8-16); ASPARTATE AMINO TRANSFERASE 14 U/L (10-37); BILIRUBIN,TOTAL 0.3 MG/DL (0.1-1.0); BLOOD UREA NITROGEN 8 MG/DL (7-18); BUN/CREATININE RATIO 57.1 (5.4-32.0); CALCIUM 8.8 MG/DL (8.5-10.1); CHLORIDE 103 MMOL/L (99-107); CREATININE 0.14 MG/DL (0.60-1.10); GLUCOSE 114 MG/DL (70-104); LACTATE DEHYDROGENASE 302 U/L (85-227); MAGNESIUM 1.9 MG/DL (1.5-2.4); PHOSPHORUS 5.1 MG/DL (2.3-4.5); POTASSIUM 3.4 MMOL/L (3.5-5.1); SODIUM 140 MMOL/L (135-145); TOTAL PROTEIN 6.2 G/DL (6.4-8.2); TRIGLYCERIDES 78 MG/DL (20-135); eGFR > 90 ML/MIN
[2021-10-20] MEDS: VANCOmycin 1250MG/NS 250ml Bag 250 ML IV SCH ×2 (04:29→12:46)
[2021-10-20] MEDS: POTASSIUM CHLORIDE 20 MEQ/15 ML oral solution PEG PRN ×3 (04:31→13:52)
--- NOTE | 2021-10-20 06:00 | NUR ---
Patient in room CICU 2008. I have received report from Trinidad BOWEN and had the opportunity to ask questions and assume patient care.
--- NOTE | 2021-10-20 06:41 | NUR ---
Problems reprioritized. Patient report given, questions answered & plan of care reviewed with ANDRÉS Rush.
[2021-10-20] MEDS: pantoprazole 40MG/NS 100ML BAG 100 ML IV SCH (07:37)
[2021-10-20] MEDS: docusate sodium 100mg/10ml UD cup PEG SCH (08:00)
[2021-10-20] MEDS: chlordiazePOXIDE 25mg capsule PO PRN ×2 (09:22→20:41)
[2021-10-20] MEDS: quetiapine 100mg tablet PEG SCH ×2 (09:23→20:42)
[2021-10-20] MEDS: zinc sulfate 220mg capsule PO SCH ×3 (09:23→20:42)
[2021-10-20] MEDS: lactobacillus rhamnosus 10,000 MMU CELLS/CAPSULE PEG SCH ×2 (09:23→20:42)
[2021-10-20] MEDS: ferrous sulfate 300mg/5ml UD oral liquid PEG SCH (09:24)
[2021-10-20] MEDS: enoxaparin 40mg/0.4ml syringe SQ SCH ×2 (09:25→20:42)
[2021-10-20] MEDS: nystatin 15 GM powder TP SCH ×3 (09:26→20:43)
[2021-10-20] MEDS: MULTIVIT-MIN/FERROUS GLUCONATE 9 MG/15 ML LIQUID PEG SCH (10:28)
[2021-10-20] MEDS: oxyCODONE IR 5mg (immed. release) tablet PO PRN ×2 (10:50→20:42)
[2021-10-20] MEDS ORDERED: VANCOMYCIN LEVEL IV ONE (11:30)
[2021-10-20 16:00] LABS: D-DIMER 0.76 MG/L FEU (0-0.50)
--- NOTE | 2021-10-20 18:17 | NUR ---
Problems reprioritized. Patient report given, questions answered & plan of care reviewed with Gino BOWEN.
[2021-10-20] MEDS: insulin glargine (Lantus) pen - multi-dose SQ SCH (21:44)
[2021-10-21] VITALS (33 sets, daily range): BP systolic 128–146; BP diastolic 27–95
[2021-10-21 03:28] LABS: BASOPHILS # (AUTO) 0.1 X10'3 (0-0.2); BASOPHILS % (AUTO) 0.9 % (0-1); EOSINOPHILS # (AUTO) 1.3 X10'3 (0-0.9); EOSINOPHILS % (AUTO) 15.3 % (0-6); HEMOGLOBIN 8.7 g/dl (14.0-17.9); LYMPHOCYTES # (AUTO) 1.2 X10'3 (1.1-4.8); LYMPHOCYTES % (AUTO) 14.1 % (21-51); MEAN CORPUSCULAR HEMOGLOBIN 26.8 PG (27.0-31.0); MEAN CORPUSCULAR HGB CONC 32.1 g/dL (33.0-36.5); MEAN CORPUSCULAR VOLUME 83.6 FL (78-98); MEAN PLATELET VOLUME 8.6 FL (7.4-10.4); MONOCYTES # (AUTO) 0.6 X10'3 (0-0.9); MONOCYTES % (AUTO) 7.5 % (2-12); NEUTROPHILS # (AUTO) 5.1 X10'3 (1.8-7.7); NEUTROPHILS % (AUTO) 62.2 % (42-75); PLATELET COUNT 348 X10'3 (140-440); RED BLOOD COUNT 3.23 X10'6 (4.70-6.10); RED CELL DISTRIBUTION WIDTH 17.6 % (11.5-14.5); WHITE BLOOD COUNT 8.2 X10'3 (4.5-11.0)
[2021-10-21 03:33] LABS: D-DIMER 0.63 MG/L FEU (0-0.50)
[2021-10-21 03:37] LABS: ALBUMIN 2.3 G/DL (3.4-5.0); BLOOD UREA NITROGEN 7 MG/DL (7-18); C-REACTIVE PROTEIN 5.22 MG/DL (0.0-0.5); CALCIUM 8.9 MG/DL (8.5-10.1); CHLORIDE 103 MMOL/L (99-107); GLUCOSE 74 MG/DL (70-104); LACTATE DEHYDROGENASE 253 U/L (85-227); MAGNESIUM 1.8 MG/DL (1.5-2.4); PHOSPHORUS 5.1 MG/DL (2.3-4.5); POTASSIUM 3.8 MMOL/L (3.5-5.1); SODIUM 140 MMOL/L (135-145); eGFR > 90 ML/MIN
[2021-10-21 03:42] LABS: ANION GAP 5 (8-16); TOTAL CARBON DIOXIDE 32.4 MMOL/L (24-32)
--- NOTE | 2021-10-21 06:46 | NUR ---
Patient in room CICU 2008. I have received report from Gino BOWEN and had the opportunity to ask questions and assume patient care.
[2021-10-21] MEDS: pantoprazole 40MG/NS 100ML BAG 100 ML IV SCH (07:42)
[2021-10-21] MEDS: ferrous sulfate 300mg/5ml UD oral liquid PEG SCH (07:42)
[2021-10-21] MEDS: piperacillin/tazo 3.375gm/50ml 50 ML IV SCH (07:42)
[2021-10-21] MEDS: docusate sodium 100mg/10ml UD cup PEG SCH (07:43)
[2021-10-21] MEDS: MULTIVIT-MIN/FERROUS GLUCONATE 9 MG/15 ML LIQUID PEG SCH (07:45)
[2021-10-21] MEDS: enoxaparin 40mg/0.4ml syringe SQ SCH ×2 (07:45→20:25)
[2021-10-21] MEDS: lactobacillus rhamnosus 10,000 MMU CELLS/CAPSULE PEG SCH ×2 (07:45→20:24)
[2021-10-21] MEDS: chlordiazePOXIDE 25mg capsule PO PRN ×2 (07:46→15:21)
[2021-10-21] MEDS: nystatin 15 GM powder TP SCH ×3 (07:46→21:04)
[2021-10-21] MEDS: gabapentin 100mg capsule PEG SCH ×2 (07:46→15:22)
[2021-10-21] MEDS: sevelamer carbonate 0.8gm powder pkt PEG SCH ×2 (07:46→15:22)
[2021-10-21] MEDS: zinc sulfate 220mg capsule PO SCH ×3 (07:46→20:24)
[2021-10-21] MEDS: LORazepam 1 MG tablet PEG SCH ×2 (07:46→15:22)
[2021-10-21] MEDS: quetiapine 100mg tablet PEG SCH ×2 (07:46→20:24)
[2021-10-21] MEDS: cloNIDine 0.1 mg tablet PEG SCH ×2 (07:46→15:21)
[2021-10-21] MEDS: insulin regular, human U-100 3ml vial - multi-dose SQ SCH ×3 (09:48→20:43)
[2021-10-21] MEDS: levoFLOXACIN 750MG TABLET PO SCH (11:25)
[2021-10-21 11:36] LABS: PREALBUMIN 18.7 MG/DL (19-36)
[2021-10-21] MEDS: oxyCODONE IR 5mg (immed. release) tablet PO PRN (17:05)
--- NOTE | 2021-10-21 18:18 | NUR ---
Problems reprioritized. Patient report given, questions answered & plan of care reviewed with Karthik BOWEN.
--- NOTE | 2021-10-21 18:30 | NUR ---
Patient in room CICU 2008. I have received report from Adri BOWEN and had the opportunity to ask questions and assume patient care.
[2021-10-21] MEDS ORDERED: VANCOMYCIN LEVEL IV ONE (19:30)
[2021-10-21] MEDS: insulin glargine (Lantus) pen - multi-dose SQ SCH (20:44)
[2021-10-22] VITALS (29 sets, daily range): BP systolic 104–158; BP diastolic 52–87
[2021-10-22] MEDS: gabapentin 100mg capsule PEG SCH ×3 (00:02→16:41)
[2021-10-22] MEDS: chlordiazePOXIDE 25mg capsule PO PRN ×4 (00:03→20:10)
[2021-10-22] MEDS: cloNIDine 0.1 mg tablet PEG SCH ×3 (00:03→16:41)
[2021-10-22] MEDS: LORazepam 2 mg/ml vial IV PRN (00:03)
[2021-10-22] MEDS: LORazepam 1 MG tablet PEG SCH ×3 (00:16→16:41)
[2021-10-22] MEDS: sevelamer carbonate 0.8gm powder pkt PEG SCH ×5 (00:17→20:09)
[2021-10-22] MEDS: insulin regular, human U-100 3ml vial - multi-dose SQ SCH ×4 (02:01→20:27)
[2021-10-22 02:43] LABS: BASOPHILS # (AUTO) 0.1 X10'3 (0-0.2); BASOPHILS % (AUTO) 0.8 % (0-1); EOSINOPHILS # (AUTO) 1.1 X10'3 (0-0.9); EOSINOPHILS % (AUTO) 13.6 % (0-6); HEMATOCRIT 27.9 % (42.0-52.0); HEMOGLOBIN 8.8 g/dl (14.0-17.9); LYMPHOCYTES # (AUTO) 1.2 X10'3 (1.1-4.8); LYMPHOCYTES % (AUTO) 15.3 % (21-51); MEAN CORPUSCULAR HEMOGLOBIN 26.4 PG (27.0-31.0); MEAN CORPUSCULAR HGB CONC 31.7 g/dL (33.0-36.5); MEAN CORPUSCULAR VOLUME 83.3 FL (78-98); MEAN PLATELET VOLUME 8.6 FL (7.4-10.4); MONOCYTES # (AUTO) 0.7 X10'3 (0-0.9); MONOCYTES % (AUTO) 8.4 % (2-12); NEUTROPHILS # (AUTO) 4.9 X10'3 (1.8-7.7); NEUTROPHILS % (AUTO) 61.9 % (42-75); PLATELET COUNT 368 X10'3 (140-440); RED BLOOD COUNT 3.35 X10'6 (4.70-6.10); RED CELL DISTRIBUTION WIDTH 17.2 % (11.5-14.5); WHITE BLOOD COUNT 7.9 X10'3 (4.5-11.0)
[2021-10-22 02:47] LABS: D-DIMER 1.51 MG/L FEU (0-0.50)
[2021-10-22 03:10] LABS: ALANINE AMINOTRANSFERASE 14 U/L (12-78); ALBUMIN 2.6 G/DL (3.4-5.0); ALBUMIN/GLOBULIN RATIO 0.6 (1.1-1.5); ALKALINE PHOSPHATASE 105 IU/L (46-116); ANION GAP 9 (8-16); ASPARTATE AMINO TRANSFERASE 9 U/L (10-37); BILIRUBIN,TOTAL 0.2 MG/DL (0.1-1.0); BLOOD UREA NITROGEN 8 MG/DL (7-18); BUN/CREATININE RATIO 34.8 (5.4-32.0); CALCIUM 9.5 MG/DL (8.5-10.1); CHLORIDE 103 MMOL/L (99-107); CREATININE 0.23 MG/DL (0.60-1.10); GLUCOSE 98 MG/DL (70-104); LACTATE DEHYDROGENASE 220 U/L (85-227); MAGNESIUM 1.8 MG/DL (1.5-2.4); PHOSPHORUS 5.1 MG/DL (2.3-4.5); POTASSIUM 3.5 MMOL/L (3.5-5.1); SODIUM 143 MMOL/L (135-145); TOTAL CARBON DIOXIDE 31.5 MMOL/L (24-32); TOTAL PROTEIN 6.8 G/DL (6.4-8.2); eGFR > 90 ML/MIN
[2021-10-22] MEDS: pantoprazole 40MG/NS 100ML BAG 100 ML IV SCH (07:03)
[2021-10-22] MEDS: MULTIVIT-MIN/FERROUS GLUCONATE 9 MG/15 ML LIQUID PEG SCH (07:07)
[2021-10-22] MEDS: docusate sodium 100mg/10ml UD cup PEG SCH (07:07)
[2021-10-22] MEDS: quetiapine 100mg tablet PEG SCH ×2 (07:07→20:09)
[2021-10-22] MEDS: ferrous sulfate 300mg/5ml UD oral liquid PEG SCH (07:08)
[2021-10-22] MEDS: zinc sulfate 220mg capsule PO SCH ×3 (07:08→20:09)
[2021-10-22] MEDS: lactobacillus rhamnosus 10,000 MMU CELLS/CAPSULE PEG SCH ×2 (07:08→20:09)
[2021-10-22] MEDS: enoxaparin 40mg/0.4ml syringe SQ SCH ×2 (07:08→20:09)
[2021-10-22] MEDS: nystatin 15 GM powder TP SCH ×3 (07:09→21:28)
--- NOTE | 2021-10-22 08:07 | NUR ---
10/22 0800-PATIENT PLACED ON HEATED BLAND AEROSOL AT 12L 50%. PATIENT SHOWING NO SIGNS OF SOB/DISTRESS. HR 125 AND 100% FIO2. RT WILL CONTINUE TO MONITOR PATIENT.
[2021-10-22] MEDS: levoFLOXACIN 750MG TABLET PO SCH (11:59)
--- NOTE | 2021-10-22 12:57 | NUR ---
F/u 10/22: Pt remains on vent via trach tolerating TF at goal GRV WNL. LBM 10/20 receiving routine colace per EMR. Phos 5.1 receiving routine renvela w/ frequency to change per telecom field technician at rounds. Wounds healing per RN at rounds w/ last WOC note 3/2 per EMR. Will continue to monitor. Recommendations: 1) Continuous Vital AF with goal rate of 85 mL/hr to provide 2040 mL total volume/day, 2448 kcal, 153 g protein, and 1654 mL water 2) IF Propofol resumed, monitor rate and need to adjust TF recs 3) No water flush at this time per MD; monitor serum Na 4) Continue routine MVM with Iron and Zinc per MD 5) Routine Phos binder per MD 6) Prealbumin q Thursday/ 7) Daily scaled weights 8) Routine bowel care; utilize PRN bowel care 9) DM education once stable following extubation and official DM dx by physician; A1c 10.1% with no PMH DM in EMR; consider f/u A1c given almost three months since initial A1c was obtained Addendum: 10/22/21 at [address] Amended: Links added.
--- NOTE | 2021-10-22 14:46 | NUR ---
Noted small area of denudation under trach cuff. Area cleansed and placed crusting technique to the area and instructed staff to do trach care more often and to inquire with RT if cuff can be loosened to prevent skin issues. Will return tomorrow to assess the area. Addendum: 10/22/21 at 1504 by Rhona Silva RN Amended: Links added.
[2021-10-22] MEDS: fentaNYL 75 MCG/hour patch.TD72 TD SCH (17:58)
[2021-10-22] MEDS: insulin glargine (Lantus) pen - multi-dose SQ SCH (20:26)
[2021-10-23] VITALS (25 sets, daily range): BP systolic 107–140; BP diastolic 51–85
[2021-10-23] MEDS: gabapentin 100mg capsule PEG SCH ×4 (00:27→23:12)
[2021-10-23] MEDS: LORazepam 1 MG tablet PEG SCH ×4 (00:27→23:12)
[2021-10-23] MEDS: cloNIDine 0.1 mg tablet PEG SCH ×4 (00:27→23:11)
[2021-10-23] MEDS: sevelamer carbonate 0.8gm powder pkt PEG SCH ×7 (00:27→23:11)
[2021-10-23] MEDS: insulin regular, human U-100 3ml vial - multi-dose SQ SCH ×3 (02:05→22:19)
[2021-10-23] MEDS: chlordiazePOXIDE 25mg capsule PO PRN ×2 (02:07→21:15)
[2021-10-23 02:44] LABS: BASOPHILS # (AUTO) 0.1 X10'3 (0-0.2); BASOPHILS % (AUTO) 0.9 % (0-1); EOSINOPHILS # (AUTO) 0.8 X10'3 (0-0.9); EOSINOPHILS % (AUTO) 8.4 % (0-6); HEMATOCRIT 27.8 % (42.0-52.0); LYMPHOCYTES # (AUTO) 1.2 X10'3 (1.1-4.8); LYMPHOCYTES % (AUTO) 13.1 % (21-51); MEAN CORPUSCULAR HGB CONC 32.4 g/dL (33.0-36.5); MEAN CORPUSCULAR VOLUME 83.4 FL (78-98); MEAN PLATELET VOLUME 8.4 FL (7.4-10.4); MONOCYTES # (AUTO) 0.7 X10'3 (0-0.9); MONOCYTES % (AUTO) 8.1 % (2-12); NEUTROPHILS # (AUTO) 6.2 X10'3 (1.8-7.7); NEUTROPHILS % (AUTO) 69.5 % (42-75); PLATELET COUNT 367 X10'3 (140-440); RED BLOOD COUNT 3.34 X10'6 (4.70-6.10); RED CELL DISTRIBUTION WIDTH 17.3 % (11.5-14.5)
[2021-10-23 02:46] LABS: ALANINE AMINOTRANSFERASE 12 U/L (12-78); ALBUMIN 2.9 G/DL (3.4-5.0); ALBUMIN/GLOBULIN RATIO 0.7 (1.1-1.5); ALKALINE PHOSPHATASE 104 IU/L (46-116); ANION GAP 8 (8-16); ASPARTATE AMINO TRANSFERASE 8 U/L (10-37); BILIRUBIN,TOTAL 0.2 MG/DL (0.1-1.0); BLOOD UREA NITROGEN 8 MG/DL (7-18); BUN/CREATININE RATIO 29.6 (5.4-32.0); C-REACTIVE PROTEIN 3.22 MG/DL (0.0-0.5); CALCIUM 9.4 MG/DL (8.5-10.1); CHLORIDE 102 MMOL/L (99-107); CREATININE 0.27 MG/DL (0.60-1.10); GLUCOSE 105 MG/DL (70-104); LACTATE DEHYDROGENASE 214 U/L (85-227); PHOSPHORUS 5.2 MG/DL (2.3-4.5); POTASSIUM 3.5 MMOL/L (3.5-5.1); SODIUM 142 MMOL/L (135-145); TOTAL CARBON DIOXIDE 31.7 MMOL/L (24-32); TOTAL PROTEIN 7.1 G/DL (6.4-8.2); eGFR > 90 ML/MIN
[2021-10-23] MEDS: pantoprazole 40MG/NS 100ML BAG 100 ML IV SCH (07:57)
[2021-10-23] MEDS: enoxaparin 40mg/0.4ml syringe SQ SCH ×2 (07:58→21:16)
[2021-10-23] MEDS: docusate sodium 100mg/10ml UD cup PEG SCH (07:58)
[2021-10-23] MEDS: ferrous sulfate 300mg/5ml UD oral liquid PEG SCH (07:59)
[2021-10-23] MEDS: MULTIVIT-MIN/FERROUS GLUCONATE 9 MG/15 ML LIQUID PEG SCH (07:59)
[2021-10-23] MEDS: lactobacillus rhamnosus 10,000 MMU CELLS/CAPSULE PEG SCH ×2 (07:59→21:15)
[2021-10-23] MEDS: zinc sulfate 220mg capsule PO SCH ×3 (07:59→21:15)
[2021-10-23] MEDS: quetiapine 100mg tablet PEG SCH ×2 (08:00→21:15)
[2021-10-23] MEDS: nystatin 15 GM powder TP SCH ×3 (08:04→13:53)
--- NOTE | 2021-10-23 11:08 | NUR ---
10/23 1020 - PATIENT PLACED ON TRACH MIST AT 12L 50%. PATIENT SHOWING NO SIGNS OF SOB OR DISTRESS. PATIENTS SPO2 IS 99% ON TRACH MIST. RT WILL CONTINUE TO MONITOR PATIENT AND TITRATE O2 NEEDED. Addendum: 10/23/21 at 1111 by Amarilys Wang RT Amended: Links added.
[2021-10-23] MEDS: levoFLOXACIN 750MG TABLET PO SCH (11:44)
[2021-10-23] MEDS: insulin glargine (Lantus) pen - multi-dose SQ SCH (21:00)
[2021-10-23] MEDS: oxyCODONE IR 5mg (immed. release) tablet PO PRN (21:15)
[2021-10-24] VITALS (30 sets, daily range): BP systolic 105–137; BP diastolic 57–83
[2021-10-24] MEDS: insulin regular, human U-100 3ml vial - multi-dose SQ SCH ×2 (03:00→20:14)
[2021-10-24 03:15] LABS: BASOPHILS # (AUTO) 0.1 X10'3 (0-0.2); BASOPHILS % (AUTO) 1.1 % (0-1); EOSINOPHILS # (AUTO) 0.9 X10'3 (0-0.9); EOSINOPHILS % (AUTO) 10.7 % (0-6); HEMATOCRIT 28.8 % (42.0-52.0); HEMOGLOBIN 9.3 g/dl (14.0-17.9); LYMPHOCYTES # (AUTO) 1.3 X10'3 (1.1-4.8); LYMPHOCYTES % (AUTO) 15.9 % (21-51); MEAN CORPUSCULAR HEMOGLOBIN 27.3 PG (27.0-31.0); MEAN CORPUSCULAR HGB CONC 32.4 g/dL (33.0-36.5); MEAN CORPUSCULAR VOLUME 84.1 FL (78-98); MEAN PLATELET VOLUME 8.1 FL (7.4-10.4); MONOCYTES # (AUTO) 0.7 X10'3 (0-0.9); NEUTROPHILS # (AUTO) 5.1 X10'3 (1.8-7.7); NEUTROPHILS % (AUTO) 63.3 % (42-75); PLATELET COUNT 360 X10'3 (140-440); RED BLOOD COUNT 3.42 X10'6 (4.70-6.10); RED CELL DISTRIBUTION WIDTH 17.7 % (11.5-14.5); WHITE BLOOD COUNT 8.1 X10'3 (4.5-11.0)
[2021-10-24 03:26] LABS: D-DIMER 1.18 MG/L FEU (0-0.50)
[2021-10-24 03:34] LABS: ALBUMIN 2.9 G/DL (3.4-5.0); ANION GAP 8 (8-16); BLOOD UREA NITROGEN 11 MG/DL (7-18); BUN/CREATININE RATIO 37.9 (5.4-32.0); CHLORIDE 103 MMOL/L (99-107); CREATININE 0.29 MG/DL (0.60-1.10); GLUCOSE 117 MG/DL (70-104); LACTATE DEHYDROGENASE 192 U/L (85-227); PHOSPHORUS 6.8 MG/DL (2.3-4.5); SODIUM 145 MMOL/L (135-145); TOTAL CARBON DIOXIDE 34.4 MMOL/L (24-32); eGFR > 90 ML/MIN
[2021-10-24] MEDS: sevelamer carbonate 0.8gm powder pkt PEG SCH ×4 (04:04→19:56)
[2021-10-24] MEDS: enoxaparin 40mg/0.4ml syringe SQ SCH ×2 (08:25→19:57)
[2021-10-24] MEDS: ferrous sulfate 300mg/5ml UD oral liquid PEG SCH (08:25)
[2021-10-24] MEDS: lactobacillus rhamnosus 10,000 MMU CELLS/CAPSULE PEG SCH ×2 (08:25→19:56)
[2021-10-24] MEDS: quetiapine 100mg tablet PEG SCH ×2 (08:25→19:56)
[2021-10-24] MEDS: zinc sulfate 220mg capsule PO SCH ×3 (08:25→19:56)
[2021-10-24] MEDS: cloNIDine 0.1 mg tablet PEG SCH ×2 (08:25→16:28)
[2021-10-24] MEDS: gabapentin 100mg capsule PEG SCH ×2 (08:25→16:28)
[2021-10-24] MEDS: docusate sodium 100mg/10ml UD cup PEG SCH (08:26)
[2021-10-24] MEDS: nystatin 15 GM powder TP SCH ×3 (08:26→19:57)
[2021-10-24] MEDS: MULTIVIT-MIN/FERROUS GLUCONATE 9 MG/15 ML LIQUID PEG SCH (08:26)
[2021-10-24] MEDS: LORazepam 1 MG tablet PEG SCH ×2 (08:26→16:28)
[2021-10-24] MEDS: pantoprazole 40MG/NS 100ML BAG 100 ML IV SCH (08:26)
--- NOTE | 2021-10-24 11:14 | NUR ---
Chest tube #1 clamped at this time per MD Barker. Plan for repeat chest xray in 1 hour
[2021-10-24] MEDS: levoFLOXACIN 750MG TABLET PO SCH (11:46)
[2021-10-24] MEDS: oxyCODONE IR 5mg (immed. release) tablet PO PRN (14:27)
[2021-10-24] MEDS: insulin glargine (Lantus) pen - multi-dose SQ SCH (20:13)
[2021-10-25] VITALS (23 sets, daily range): BP systolic 107–144; BP diastolic 60–85
[2021-10-25] MEDS: cloNIDine 0.1 mg tablet PEG SCH ×4 (00:11→23:48)
[2021-10-25] MEDS: gabapentin 100mg capsule PEG SCH ×4 (00:11→23:16)
[2021-10-25] MEDS: LORazepam 1 MG tablet PEG SCH ×4 (00:11→23:16)
[2021-10-25] MEDS: chlordiazePOXIDE 25mg capsule PO PRN (00:29)
[2021-10-25] MEDS: sevelamer carbonate 0.8gm powder pkt PEG SCH ×4 (02:08→19:26)
[2021-10-25 02:47] LABS: BASOPHILS # (AUTO) 0.1 X10'3 (0-0.2); BASOPHILS % (AUTO) 0.7 % (0-1); EOSINOPHILS # (AUTO) 1.1 X10'3 (0-0.9); EOSINOPHILS % (AUTO) 10.4 % (0-6); HEMATOCRIT 28.1 % (42.0-52.0); HEMOGLOBIN 9.1 g/dl (14.0-17.9); LYMPHOCYTES # (AUTO) 1.5 X10'3 (1.1-4.8); LYMPHOCYTES % (AUTO) 14.2 % (21-51); MEAN CORPUSCULAR HEMOGLOBIN 26.9 PG (27.0-31.0); MEAN CORPUSCULAR HGB CONC 32.4 g/dL (33.0-36.5); MEAN PLATELET VOLUME 8.2 FL (7.4-10.4); MONOCYTES # (AUTO) 0.6 X10'3 (0-0.9); MONOCYTES % (AUTO) 6.2 % (2-12); NEUTROPHILS % (AUTO) 68.5 % (42-75); PLATELET COUNT 375 X10'3 (140-440); RED BLOOD COUNT 3.39 X10'6 (4.70-6.10); RED CELL DISTRIBUTION WIDTH 17.9 % (11.5-14.5); WHITE BLOOD COUNT 10.3 X10'3 (4.5-11.0)
[2021-10-25 02:55] LABS: ALANINE AMINOTRANSFERASE 14 U/L (12-78); ALBUMIN 2.9 G/DL (3.4-5.0); ALBUMIN/GLOBULIN RATIO 0.6 (1.1-1.5); ALKALINE PHOSPHATASE 104 IU/L (46-116); ANION GAP 7 (8-16); ASPARTATE AMINO TRANSFERASE 9 U/L (10-37); BILIRUBIN,TOTAL 0.2 MG/DL (0.1-1.0); BLOOD UREA NITROGEN 11 MG/DL (7-18); BUN/CREATININE RATIO 47.8 (5.4-32.0); C-REACTIVE PROTEIN 3.86 MG/DL (0.0-0.5); CALCIUM 9.7 MG/DL (8.5-10.1); CHLORIDE 103 MMOL/L (99-107); CREATININE 0.23 MG/DL (0.60-1.10); GLUCOSE 105 MG/DL (70-104); LACTATE DEHYDROGENASE 178 U/L (85-227); POTASSIUM 3.6 MMOL/L (3.5-5.1); SODIUM 144 MMOL/L (135-145); TOTAL CARBON DIOXIDE 34.3 MMOL/L (24-32); TOTAL PROTEIN 7.4 G/DL (6.4-8.2); eGFR > 90 ML/MIN
[2021-10-25] MEDS: lactobacillus rhamnosus 10,000 MMU CELLS/CAPSULE PEG SCH ×2 (08:25→19:25)
[2021-10-25] MEDS: pantoprazole 40MG/NS 100ML BAG 100 ML IV SCH (08:25)
[2021-10-25] MEDS: enoxaparin 40mg/0.4ml syringe SQ SCH ×2 (08:25→19:26)
[2021-10-25] MEDS: ferrous sulfate 300mg/5ml UD oral liquid PEG SCH (08:25)
[2021-10-25] MEDS: quetiapine 100mg tablet PEG SCH ×2 (08:26→19:26)
[2021-10-25] MEDS: zinc sulfate 220mg capsule PO SCH (08:26)
[2021-10-25] MEDS: insulin regular, human U-100 3ml vial - multi-dose SQ SCH ×3 (08:34→19:41)
[2021-10-25] MEDS: nystatin 15 GM powder TP SCH ×3 (08:43→21:30)
[2021-10-25] MEDS: docusate sodium 100mg/10ml UD cup PEG SCH (08:43)
[2021-10-25] MEDS: MULTIVIT-MIN/FERROUS GLUCONATE 9 MG/15 ML LIQUID PEG SCH (08:43)
[2021-10-25] MEDS ORDERED: chlordiazePOXIDE 25mg capsule PEG PRN (09:05)
[2021-10-25] MEDS: levoFLOXACIN 750MG TABLET PEG SCH (11:51)
[2021-10-25] MEDS: propranolol 10mg tablet PEG SCH ×2 (11:51→19:26)
--- NOTE | 2021-10-25 12:33 | NUR ---
Reassessment: Pt continues tolerating TF at goal rate with GRV WNL. Pt continues receiving routine Phos binder given elevated serum Phos. LBM 10/20, receiving routine bowel care and received first dose of PRN bowel care 10/24. Will continue to follow and monitor need for adjustments to TF recommendations. Recommendations: 1) Continuous Vital AF with goal rate of 85 mL/hr to provide 2040 mL total volume/day, 2448 kcal, 153 g protein, and 1654 mL water 2) IF Propofol resumed, monitor rate and need to adjust TF recs 3) No water flush at this time per MD; monitor serum Na 4) Continue routine MVM with Iron and Zinc per MD 5) Routine Phos binder per MD 6) Prealbumin q Thursday/ 7) Daily scaled weights 8) Routine bowel care; utilize PRN bowel care 9) DM education once stable following extubation and official DM dx by physician; A1c 10.1% with no PMH DM in EMR; consider f/u A1c given almost three months since initial A1c was obtained Addendum: 10/25/21 at [address] Amended: Links added.
[2021-10-25] MEDS: zinc sulfate 220mg capsule PEG SCH ×2 (14:26→19:26)
[2021-10-25] MEDS: insulin glargine (Lantus) pen - multi-dose SQ SCH (19:39)
[2021-10-25] MEDS: oxyCODONE IR 5mg (immed. release) tablet PEG PRN (23:17)
[2021-10-26] VITALS (23 sets, daily range): BP systolic 108–140; BP diastolic 67–97
[2021-10-26] MEDS: sevelamer carbonate 0.8gm powder pkt PEG SCH ×4 (02:07→20:19)
[2021-10-26 02:35] LABS: BASOPHILS # (AUTO) 0.1 X10'3 (0-0.2); BASOPHILS % (AUTO) 0.9 % (0-1); EOSINOPHILS # (AUTO) 0.8 X10'3 (0-0.9); EOSINOPHILS % (AUTO) 8.6 % (0-6); HEMATOCRIT 29.4 % (42.0-52.0); HEMOGLOBIN 9.6 g/dl (14.0-17.9); LYMPHOCYTES # (AUTO) 1.4 X10'3 (1.1-4.8); LYMPHOCYTES % (AUTO) 14.3 % (21-51); MEAN CORPUSCULAR HEMOGLOBIN 27.1 PG (27.0-31.0); MEAN CORPUSCULAR HGB CONC 32.5 g/dL (33.0-36.5); MEAN CORPUSCULAR VOLUME 83.4 FL (78-98); MEAN PLATELET VOLUME 8.2 FL (7.4-10.4); MONOCYTES # (AUTO) 0.8 X10'3 (0-0.9); MONOCYTES % (AUTO) 8.2 % (2-12); NEUTROPHILS # (AUTO) 6.6 X10'3 (1.8-7.7); PLATELET COUNT 362 X10'3 (140-440); RED BLOOD COUNT 3.52 X10'6 (4.70-6.10); RED CELL DISTRIBUTION WIDTH 17.7 % (11.5-14.5); WHITE BLOOD COUNT 9.8 X10'3 (4.5-11.0)
[2021-10-26 02:47] LABS: D-DIMER 2.23 MG/L FEU (0-0.50)
[2021-10-26] MEDS: insulin regular, human U-100 3ml vial - multi-dose SQ SCH ×2 (02:51→21:42)
[2021-10-26 02:52] LABS: ALANINE AMINOTRANSFERASE 11 U/L (12-78); ALBUMIN/GLOBULIN RATIO 0.7 (1.1-1.5); ALKALINE PHOSPHATASE 110 IU/L (46-116); ANION GAP 3 (8-16); ASPARTATE AMINO TRANSFERASE 7 U/L (10-37); BILIRUBIN,TOTAL 0.2 MG/DL (0.1-1.0); BLOOD UREA NITROGEN 14 MG/DL (7-18); BUN/CREATININE RATIO 46.7 (5.4-32.0); C-REACTIVE PROTEIN 3.19 MG/DL (0.0-0.5); CALCIUM 9.8 MG/DL (8.5-10.1); CHLORIDE 102 MMOL/L (99-107); GLUCOSE 152 MG/DL (70-104); LACTATE DEHYDROGENASE 179 U/L (85-227); POTASSIUM 3.9 MMOL/L (3.5-5.1); SODIUM 140 MMOL/L (135-145); TOTAL CARBON DIOXIDE 35.5 MMOL/L (24-32); TOTAL PROTEIN 7.6 G/DL (6.4-8.2); eGFR > 90 ML/MIN
[2021-10-26 04:43] LABS: ANISOCYTOSIS 1+; ELLIPTOCYTES FEW; PLATELET ESTIMATE NORMAL; STOMATOCYTES FEW; TEAR DROP CELLS FEW
--- NOTE | 2021-10-26 06:30 | NUR ---
Patient in room CICU 2008. I have received report from Lanie BOWEN and had the opportunity to ask questions and assume patient care.
[2021-10-26] MEDS: ferrous sulfate 300mg/5ml UD oral liquid PEG SCH (07:34)
[2021-10-26] MEDS: MULTIVIT-MIN/FERROUS GLUCONATE 9 MG/15 ML LIQUID PEG SCH (07:34)
[2021-10-26] MEDS: docusate sodium 100mg/10ml UD cup PEG SCH (07:34)
[2021-10-26] MEDS: cloNIDine 0.1 mg tablet PEG SCH ×2 (07:35→16:48)
[2021-10-26] MEDS: quetiapine 100mg tablet PEG SCH ×2 (07:35→20:19)
[2021-10-26] MEDS: lactobacillus rhamnosus 10,000 MMU CELLS/CAPSULE PEG SCH ×2 (07:35→20:19)
[2021-10-26] MEDS: zinc sulfate 220mg capsule PEG SCH ×3 (07:36→20:19)
[2021-10-26] MEDS: propranolol 10mg tablet PEG SCH ×2 (07:36→20:19)
[2021-10-26] MEDS: gabapentin 100mg capsule PEG SCH ×2 (07:36→16:47)
[2021-10-26] MEDS: pantoprazole 40MG/NS 100ML BAG 100 ML IV SCH (07:38)
[2021-10-26] MEDS: enoxaparin 40mg/0.4ml syringe SQ SCH ×2 (07:39→20:19)
[2021-10-26] MEDS: nystatin 15 GM powder TP SCH ×3 (07:39→20:19)
[2021-10-26] MEDS: levoFLOXACIN 750MG TABLET PEG SCH (10:38)
[2021-10-26] MEDS: LORazepam 1 MG tablet PEG SCH ×2 (10:38→16:47)
--- NOTE | 2021-10-26 13:16 | NUR ---
Block note Pt had family visiting from [place]. PT got pt up to chair for couple of hours. Pt tolerated well. He wanted to be on the east side of the bed so he could see outside. Pt has rash on left flank that goes down to buttocks bilaterally. Covered with Calazime & nystatin mix once back in bed. Positioned to comfort after suctioning. Family remained for about 1 hour post chair and visited with pt. Once back to bed, pt sleeping well. DNP to see pt while up in chair.
--- NOTE | 2021-10-26 14:02 | NUR ---
Student documentation: I have reviewed and agree with all interventions, assessments performed and documented by Willi HALL.
[2021-10-26 14:06] LABS: PHOSPHORUS 5.8 MG/DL (2.3-4.5)
--- NOTE | 2021-10-26 17:02 | NUR ---
Patch Pt does not currently have a fentanyl patch on.
--- NOTE | 2021-10-26 18:16 | NUR ---
Problems reprioritized. Patient report given, questions answered & plan of care reviewed with Lanie BOWEN. Family at bedside and pt enjoying the company.
[2021-10-26] MEDS: insulin glargine (Lantus) pen - multi-dose SQ SCH (21:43)
[2021-10-27] VITALS (23 sets, daily range): BP systolic 122–148; BP diastolic 58–96
[2021-10-27] MEDS: LORazepam 2 mg/ml vial IV PRN (00:26)
[2021-10-27] MEDS: gabapentin 100mg capsule PEG SCH ×3 (00:27→15:47)
[2021-10-27] MEDS: cloNIDine 0.1 mg tablet PEG SCH ×3 (00:27→15:47)
[2021-10-27] MEDS: sevelamer carbonate 0.8gm powder pkt PEG SCH ×4 (02:00→20:27)
--- NOTE | 2021-10-27 03:30 | NUR ---
Restless, anxious and c/o of difficulty sleeping. Addendum: 10/27/21 at 0658 by Lanie Camejo RN Noted unfinished: 2mg po Ativan held, given prn 2mg Ativan.
[2021-10-27 04:00] LABS: BASOPHILS # (AUTO) 0.1 X10'3 (0-0.2); BASOPHILS % (AUTO) 0.9 % (0-1); EOSINOPHILS # (AUTO) 0.5 X10'3 (0-0.9); EOSINOPHILS % (AUTO) 4.3 % (0-6); HEMATOCRIT 27.6 % (42.0-52.0); HEMOGLOBIN 8.9 g/dl (14.0-17.9); LYMPHOCYTES # (AUTO) 1.3 X10'3 (1.1-4.8); LYMPHOCYTES % (AUTO) 12.4 % (21-51); MEAN CORPUSCULAR HEMOGLOBIN 26.9 PG (27.0-31.0); MEAN CORPUSCULAR HGB CONC 32.1 g/dL (33.0-36.5); MEAN CORPUSCULAR VOLUME 83.9 FL (78-98); MEAN PLATELET VOLUME 8.3 FL (7.4-10.4); MONOCYTES # (AUTO) 0.9 X10'3 (0-0.9); MONOCYTES % (AUTO) 8.2 % (2-12); NEUTROPHILS # (AUTO) 7.7 X10'3 (1.8-7.7); NEUTROPHILS % (AUTO) 74.2 % (42-75); PLATELET COUNT 355 X10'3 (140-440); RED BLOOD COUNT 3.29 X10'6 (4.70-6.10); RED CELL DISTRIBUTION WIDTH 17.1 % (11.5-14.5); WHITE BLOOD COUNT 10.4 X10'3 (4.5-11.0)
--- NOTE | 2021-10-27 04:00 | NUR ---
no signs of distress noted, resting with eyes closed at this time.
[2021-10-27 04:22] LABS: ALANINE AMINOTRANSFERASE 11 U/L (12-78); ALBUMIN 2.9 G/DL (3.4-5.0); ALBUMIN/GLOBULIN RATIO 0.6 (1.1-1.5); ALKALINE PHOSPHATASE 104 IU/L (46-116); ANION GAP 6 (8-16); ASPARTATE AMINO TRANSFERASE 7 U/L (10-37); BILIRUBIN,TOTAL 0.2 MG/DL (0.1-1.0); BLOOD UREA NITROGEN 13 MG/DL (7-18); C-REACTIVE PROTEIN 3.04 MG/DL (0.0-0.5); CALCIUM 9.5 MG/DL (8.5-10.1); CHLORIDE 104 MMOL/L (99-107); CREATININE 0.26 MG/DL (0.60-1.10); GLUCOSE 105 MG/DL (70-104); POTASSIUM 3.7 MMOL/L (3.5-5.1); SODIUM 147 MMOL/L (135-145); TOTAL CARBON DIOXIDE 36.8 MMOL/L (24-32); TOTAL PROTEIN 7.5 G/DL (6.4-8.2); eGFR > 90 ML/MIN
[2021-10-27 04:40] LABS: LACTATE DEHYDROGENASE 191 U/L (85-227)
[2021-10-27] MEDS: insulin regular, human U-100 3ml vial - multi-dose SQ SCH ×3 (08:09→21:33)
[2021-10-27] MEDS: zinc sulfate 220mg capsule PEG SCH ×3 (08:19→21:33)
[2021-10-27] MEDS: pantoprazole 40MG/NS 100ML BAG 100 ML IV SCH (08:19)
[2021-10-27] MEDS: nystatin 15 GM powder TP SCH ×3 (08:19→21:33)
[2021-10-27] MEDS: docusate sodium 100mg/10ml UD cup PEG SCH (08:19)
[2021-10-27] MEDS: ferrous sulfate 300mg/5ml UD oral liquid PEG SCH (08:19)
[2021-10-27] MEDS: MULTIVIT-MIN/FERROUS GLUCONATE 9 MG/15 ML LIQUID PEG SCH (08:19)
[2021-10-27] MEDS: quetiapine 100mg tablet PEG SCH ×2 (08:19→20:27)
[2021-10-27] MEDS: LORazepam 1 MG tablet PEG SCH ×3 (08:20→15:47)
[2021-10-27] MEDS: propranolol 10mg tablet PEG SCH ×2 (08:20→20:26)
[2021-10-27] MEDS: lactobacillus rhamnosus 10,000 MMU CELLS/CAPSULE PEG SCH ×2 (08:20→20:26)
[2021-10-27] MEDS: enoxaparin 40mg/0.4ml syringe SQ SCH ×2 (08:21→20:28)
[2021-10-27] MEDS: levoFLOXACIN 750MG TABLET PEG SCH (11:18)
--- NOTE | 2021-10-27 11:45 | NUR ---
Two nephews visited earlier. Brother Leon here now. Wound pics obtained per policy.
[2021-10-27] MEDS: oxyCODONE IR 5mg (immed. release) tablet PEG PRN (12:54)
--- NOTE | 2021-10-27 15:38 | NUR ---
Dr. Shea dc'd chest tube #2 (lower chest tube). XRAY obtained.
--- NOTE | 2021-10-27 17:28 | NUR ---
Left "wrist drop" noted upon assessment this am. Dr. Shea notified.
[2021-10-27] MEDS: insulin glargine (Lantus) pen - multi-dose SQ SCH (21:31)
[2021-10-27] MEDS: ondansetron/PF 4mg/2ml inj IV PRN (23:09)
[2021-10-28] VITALS (24 sets, daily range): BP systolic 112–148; BP diastolic 63–88
[2021-10-28] MEDS: LORazepam 1 MG tablet PEG SCH ×3 (00:06→16:37)
[2021-10-28] MEDS: cloNIDine 0.1 mg tablet PEG SCH ×3 (00:06→16:37)
[2021-10-28] MEDS: gabapentin 100mg capsule PEG SCH ×3 (00:06→16:37)
[2021-10-28] MEDS: sevelamer carbonate 0.8gm powder pkt PEG SCH ×4 (02:00→19:41)
[2021-10-28 02:42] LABS: BASOPHILS # (AUTO) 0.1 X10'3 (0-0.2); BASOPHILS % (AUTO) 0.7 % (0-1); EOSINOPHILS # (AUTO) 0.3 X10'3 (0-0.9); EOSINOPHILS % (AUTO) 2.1 % (0-6); HEMATOCRIT 29.7 % (42.0-52.0); HEMOGLOBIN 9.4 g/dl (14.0-17.9); LYMPHOCYTES # (AUTO) 1.3 X10'3 (1.1-4.8); LYMPHOCYTES % (AUTO) 10.4 % (21-51); MEAN CORPUSCULAR HEMOGLOBIN 26.7 PG (27.0-31.0); MEAN CORPUSCULAR HGB CONC 31.7 g/dL (33.0-36.5); MEAN CORPUSCULAR VOLUME 84.1 FL (78-98); MEAN PLATELET VOLUME 8.4 FL (7.4-10.4); MONOCYTES % (AUTO) 8.5 % (2-12); NEUTROPHILS # (AUTO) 9.6 X10'3 (1.8-7.7); NEUTROPHILS % (AUTO) 78.3 % (42-75); PLATELET COUNT 336 X10'3 (140-440); RED BLOOD COUNT 3.53 X10'6 (4.70-6.10); WHITE BLOOD COUNT 12.2 X10'3 (4.5-11.0)
[2021-10-28 02:53] LABS: D-DIMER 1.37 MG/L FEU (0-0.50)
[2021-10-28 03:00] LABS: ALANINE AMINOTRANSFERASE 13 U/L (12-78); ALBUMIN/GLOBULIN RATIO 0.6 (1.1-1.5); ALKALINE PHOSPHATASE 105 IU/L (46-116); ANION GAP 3 (8-16); ASPARTATE AMINO TRANSFERASE 6 U/L (10-37); BILIRUBIN,TOTAL 0.2 MG/DL (0.1-1.0); BLOOD UREA NITROGEN 12 MG/DL (7-18); BUN/CREATININE RATIO 52.2 (5.4-32.0); C-REACTIVE PROTEIN 4.73 MG/DL (0.0-0.5); CALCIUM 9.8 MG/DL (8.5-10.1); CHLORIDE 105 MMOL/L (99-107); CREATININE 0.23 MG/DL (0.60-1.10); PHOSPHORUS 5.2 MG/DL (2.3-4.5); POTASSIUM 3.8 MMOL/L (3.5-5.1); SODIUM 146 MMOL/L (135-145); TOTAL CARBON DIOXIDE 37.9 MMOL/L (24-32); TOTAL PROTEIN 7.7 G/DL (6.4-8.2); eGFR > 90 ML/MIN
[2021-10-28 03:05] LABS: LACTATE DEHYDROGENASE 161 U/L (85-227)
[2021-10-28 03:09] LABS: GLUCOSE 47 MG/DL (70-104)
--- NOTE | 2021-10-28 04:13 | NUR ---
Patient nauseated earlier in the shift at 2309, given antimetic and TF put on hold. TF resumed at 0200 with no residual noted. Informed by lab that patients BG 47 with labs drawn. Associate Financial Advisor aware and BG taken at 0250 with a resulting BG of 72. Will recheck and record as TF was resumed and will pass on in report to oncoming nurse. Will continue to monitor.
--- NOTE | 2021-10-28 06:18 | NUR ---
Problems reprioritized. Patient report given, questions answered & plan of care reviewed with Darcy BOWEN and Nicole BOWEN.
[2021-10-28] MEDS: ferrous sulfate 300mg/5ml UD oral liquid PEG SCH (07:55)
[2021-10-28] MEDS: docusate sodium 100mg/10ml UD cup PEG SCH (07:55)
[2021-10-28] MEDS: pantoprazole 40MG/NS 100ML BAG 100 ML IV SCH (07:55)
[2021-10-28] MEDS: propranolol 10mg tablet PEG SCH ×2 (07:56→19:41)
[2021-10-28] MEDS: lactobacillus rhamnosus 10,000 MMU CELLS/CAPSULE PEG SCH ×2 (07:56→19:40)
[2021-10-28] MEDS: quetiapine 100mg tablet PEG SCH ×2 (07:56→19:40)
[2021-10-28] MEDS: MULTIVIT-MIN/FERROUS GLUCONATE 9 MG/15 ML LIQUID PEG SCH (07:56)
[2021-10-28] MEDS: nystatin 15 GM powder TP SCH ×3 (07:57→21:08)
[2021-10-28] MEDS: enoxaparin 40mg/0.4ml syringe SQ SCH ×2 (07:57→19:42)
[2021-10-28] MEDS: zinc sulfate 220mg capsule PEG SCH ×3 (07:59→21:08)
[2021-10-28] MEDS: acetaminophen 325mg/10.15ml oral unit dose solution PEG PRN (08:12)
[2021-10-28] MEDS: insulin regular, human U-100 3ml vial - multi-dose SQ SCH ×3 (09:37→21:03)
[2021-10-28] MEDS: levoFLOXACIN 750MG TABLET PEG SCH (11:00)
--- NOTE | 2021-10-28 13:42 | NUR ---
Patient in room [facility] 2008. I have received report from Nathanael BOWEN and had the opportunity to ask questions and assume patient care. Addendum: 10/28/21 at 1345 by Berkley Easley RN above note from [id number]
[2021-10-28] MEDS: fentaNYL 75 MCG/hour patch.TD72 TD SCH (16:52)
--- NOTE | 2021-10-28 16:59 | NUR ---
New fentanyl patch placed to outer right arm. unable to document old patch waste due to no patch ever administered (see missed patch from 10/25) called Gl[facility] in the Pharmacy. Per pharmacy, no fentanyl patch was ever dispensed on 10/25, thus explaining why no patch is present to be wasted. Rosaura BOWEN witnessed.
--- NOTE | 2021-10-28 17:38 | NUR ---
Called Dr. Gandhi. new order received. prior in the shift, Dr. Gandhi made rounds. discussed discontinuing levaquin. Called to confirm at end of shift. New order to d/c levaquin.
--- NOTE | 2021-10-28 18:12 | NUR ---
Problems reprioritized. Patient report given, questions answered & plan of care reviewed with Nathanael BOWEN. Pt 45 degreees HOB, breathign even and non labored though trach. no s/sx acute distress. safety measures in place.
[2021-10-28] MEDS: insulin glargine (Lantus) pen - multi-dose SQ SCH (20:59)
[2021-10-29] VITALS (23 sets, daily range): BP systolic 114–149; BP diastolic 69–96
[2021-10-29] MEDS: cloNIDine 0.1 mg tablet PEG SCH ×3 (00:18→16:04)
[2021-10-29] MEDS: LORazepam 1 MG tablet PEG SCH ×3 (00:18→16:04)
[2021-10-29] MEDS: gabapentin 100mg capsule PEG SCH ×3 (00:18→16:04)
[2021-10-29] MEDS: sevelamer carbonate 0.8gm powder pkt PEG SCH ×4 (02:53→21:13)
[2021-10-29 03:05] LABS: BASOPHILS # (AUTO) 0.1 X10'3 (0-0.2); EOSINOPHILS # (AUTO) 0.5 X10'3 (0-0.9); EOSINOPHILS % (AUTO) 5.1 % (0-6); HEMATOCRIT 30.1 % (42.0-52.0); HEMOGLOBIN 9.5 g/dl (14.0-17.9); LYMPHOCYTES # (AUTO) 1.4 X10'3 (1.1-4.8); LYMPHOCYTES % (AUTO) 15.3 % (21-51); MEAN CORPUSCULAR HEMOGLOBIN 26.6 PG (27.0-31.0); MEAN CORPUSCULAR HGB CONC 31.6 g/dL (33.0-36.5); MEAN CORPUSCULAR VOLUME 84.1 FL (78-98); MEAN PLATELET VOLUME 8.4 FL (7.4-10.4); MONOCYTES # (AUTO) 0.8 X10'3 (0-0.9); MONOCYTES % (AUTO) 8.4 % (2-12); NEUTROPHILS # (AUTO) 6.5 X10'3 (1.8-7.7); NEUTROPHILS % (AUTO) 70.2 % (42-75); PLATELET COUNT 321 X10'3 (140-440); RED BLOOD COUNT 3.58 X10'6 (4.70-6.10); RED CELL DISTRIBUTION WIDTH 17.4 % (11.5-14.5); WHITE BLOOD COUNT 9.2 X10'3 (4.5-11.0)
[2021-10-29 03:08] LABS: ALANINE AMINOTRANSFERASE 11 U/L (12-78); ALBUMIN 2.9 G/DL (3.4-5.0); ALBUMIN/GLOBULIN RATIO 0.6 (1.1-1.5); ALKALINE PHOSPHATASE 105 IU/L (46-116); ANION GAP 7 (8-16); ASPARTATE AMINO TRANSFERASE 10 U/L (10-37); BILIRUBIN,TOTAL 0.2 MG/DL (0.1-1.0); BLOOD UREA NITROGEN 15 MG/DL (7-18); BUN/CREATININE RATIO 71.4 (5.4-32.0); C-REACTIVE PROTEIN 8.36 MG/DL (0.0-0.5); CALCIUM 9.4 MG/DL (8.5-10.1); CHLORIDE 105 MMOL/L (99-107); CREATININE 0.21 MG/DL (0.60-1.10); GLUCOSE 101 MG/DL (70-104); LACTATE DEHYDROGENASE 200 U/L (85-227); POTASSIUM 3.7 MMOL/L (3.5-5.1); SODIUM 148 MMOL/L (135-145); TOTAL CARBON DIOXIDE 36.2 MMOL/L (24-32); TOTAL PROTEIN 7.7 G/DL (6.4-8.2); eGFR > 90 ML/MIN
--- NOTE | 2021-10-29 06:10 | NUR ---
Problems reprioritized. Patient report given, questions answered & plan of care reviewed with Nicole BOWEN.
--- NOTE | 2021-10-29 06:20 | NUR ---
Patient in room CICU 2008. I have received report from ANDRÉS Piedra and had the opportunity to ask questions and assume patient care. Patient resting comfortably at this time. Patient VSS. BLL. Patient denies any complaints at this time. No apparent distress at this time.
--- NOTE | 2021-10-29 07:15 | NUR ---
Patient in room CICU 2008. I have received report from Rosaura BOWEN and had the opportunity to ask questions and assume patient care.
--- NOTE | 2021-10-29 08:10 | NUR ---
Dr. Guallpa to make rounds. Chest tube clamped. discussed pt current health status, CXtube to right side, per Dani Shea DIRECTOR COMPENSATION yesterday, plan was to take chest tube out today. pt continues on trach at 9lpm, 40% fio2. spo2 stable at this time, vs stable. Miscellaneous order received: ok for pt to swish and spit clear liquids. new order: cxr @9am (one hour after chest tube clamped.) if pt develops resp. distress, before that time, unclamp chest tube and rajni doc yogi.
[2021-10-29] MEDS: lactobacillus rhamnosus 10,000 MMU CELLS/CAPSULE PEG SCH ×2 (08:39→21:13)
[2021-10-29] MEDS: docusate sodium 100mg/10ml UD cup PEG SCH (08:39)
[2021-10-29] MEDS: MULTIVIT-MIN/FERROUS GLUCONATE 9 MG/15 ML LIQUID PEG SCH (08:39)
[2021-10-29] MEDS: ferrous sulfate 300mg/5ml UD oral liquid PEG SCH (08:39)
[2021-10-29] MEDS: quetiapine 100mg tablet PEG SCH ×2 (08:39→21:13)
[2021-10-29] MEDS: pantoprazole 40MG/NS 100ML BAG 100 ML IV SCH (08:39)
[2021-10-29] MEDS: zinc sulfate 220mg capsule PEG SCH ×3 (08:39→21:13)
[2021-10-29] MEDS: propranolol 10mg tablet PEG SCH ×2 (08:39→21:12)
[2021-10-29] MEDS: nystatin 15 GM powder TP SCH ×3 (08:41→21:14)
[2021-10-29] MEDS: enoxaparin 40mg/0.4ml syringe SQ SCH ×2 (08:41→21:12)
[2021-10-29] MEDS: ondansetron/PF 4mg/2ml inj IV PRN (08:55)
[2021-10-29] MEDS: insulin regular, human U-100 3ml vial - multi-dose SQ SCH ×2 (09:05→21:25)
--- NOTE | 2021-10-29 09:29 | NUR ---
cxr completed, Dr. Guallpa called. CXR reviewed by doc. no new orders. no s/sx acute change in condition. will continue to monitor closely.
[2021-10-29] MEDS: acetaminophen 325mg/10.15ml oral unit dose solution PEG PRN ×2 (09:37→17:02)
--- NOTE | 2021-10-29 11:00 | NUR ---
Rounds summary with Dr. Guallpa and team discussed pt current joe status. notably, discussed chest tube to continue clamped. watch for respiratory distress. CXR prn resp. distress. will address chest tube removal very conservatively given the current state of his lungs and the potential difficulty if new chest tube would have to be placed. pharmacist Elsa addressed continued titration of fentanyl patch with plan to decrease to 62.5 on next patch change.
--- NOTE | 2021-10-29 11:35 | NUR ---
Reassessment: Pt continues with trach and tolerating TF at goal rate with GRV WNL. Pt continues receiving routine Phos binder given elevated serum Phos. LBM 10/25, receiving routine bowel care and received first dose of PRN bowel care 10/24. Pt to receive f/u admin of PRN bowel care today per RN. Will continue to follow and monitor need for adjustments to TF recommendations. Recommendations: 1) Continuous Vital AF with goal rate of 85 mL/hr to provide 2040 mL total volume/day, 2448 kcal, 153 g protein, and 1654 mL water 2) No water flush at this time per MD; monitor serum Na 3) Continue routine MVM with Iron and Zinc per MD 4) Routine Phos binder per MD 5) Prealbumin q Thursday/ 6) Daily scaled weights 7) Routine bowel care; utilize PRN bowel care 8) DM education once stable following official DM dx by physician; A1c 10.1% with no PMH DM in EMR; consider f/u A1c given over three months since initial A1c was obtained Addendum: 10/29/21 at [address] Amended: Links added.
[2021-10-29] MEDS: dextrose 50%-water 50ml dispensing syringe IV PRN (14:40)
--- NOTE | 2021-10-29 17:10 | NUR ---
discussed pain management with Dr. Guallpa pt reports pain to sciatic nerve area to bilateral legs, and left radial nerve area pain. discussed gabapentin dosing with Dr. Guallpa. new order to increase dose to 200mg TID.
--- NOTE | 2021-10-29 17:44 | NUR ---
SPO2 in mid 80's. Dr. Guallpa called to pt room. spo2 84%. Doc unclamped the chest tube. no air lean noted. no change to spo2. pt asymptomatic, no noted SOB. per pt he feels normal. chest tube reclamped by doc. FIO2 turned back up to 40% from 35%. Spo2 89% at this time.
--- NOTE | 2021-10-29 18:16 | NUR ---
Problems reprioritized. Patient report given, questions answered & plan of care reviewed with Nathanael BOWEN. Pt HOB @ 45 degrees, spo2 low 90's. no sob. LS + per baseline to bilat lobes. call light within reach, side rails up, safety measures in place.
[2021-10-29] MEDS: insulin glargine (Lantus) pen - multi-dose SQ SCH (21:24)
[2021-10-30] VITALS (24 sets, daily range): BP systolic 117–149; BP diastolic 67–93
[2021-10-30] MEDS: gabapentin 100mg capsule PEG SCH ×3 (01:29→16:36)
[2021-10-30] MEDS: cloNIDine 0.1 mg tablet PEG SCH ×3 (01:29→16:36)
[2021-10-30] MEDS: LORazepam 1 MG tablet PEG SCH ×3 (01:30→16:36)
[2021-10-30] MEDS: dextrose 50%-water 50ml dispensing syringe IV PRN (02:26)
--- NOTE | 2021-10-30 02:32 | NUR ---
Pts BS was 55. D50 was given at this time.
[2021-10-30] MEDS: sevelamer carbonate 0.8gm powder pkt PEG SCH ×4 (03:03→21:31)
[2021-10-30 03:08] LABS: D-DIMER 2.09 MG/L FEU (0-0.50)
[2021-10-30 03:10] LABS: C-REACTIVE PROTEIN 4.95 MG/DL (0.0-0.5); LACTATE DEHYDROGENASE 157 U/L (85-227)
[2021-10-30 07:52] LABS: ALANINE AMINOTRANSFERASE 13 U/L (12-78); ALBUMIN 2.9 G/DL (3.4-5.0); ALBUMIN/GLOBULIN RATIO 0.6 (1.1-1.5); ALKALINE PHOSPHATASE 108 IU/L (46-116); ANION GAP 10 (8-16); ASPARTATE AMINO TRANSFERASE 17 U/L (10-37); BILIRUBIN,TOTAL 0.2 MG/DL (0.1-1.0); BLOOD UREA NITROGEN 16 MG/DL (7-18); BUN/CREATININE RATIO 72.7 (5.4-32.0); CALCIUM 9.9 MG/DL (8.5-10.1); CHLORIDE 104 MMOL/L (99-107); CREATININE 0.22 MG/DL (0.60-1.10); POTASSIUM 3.7 MMOL/L (3.5-5.1); SODIUM 151 MMOL/L (135-145); TOTAL CARBON DIOXIDE 37.5 MMOL/L (24-32); TOTAL PROTEIN 7.6 G/DL (6.4-8.2); eGFR > 90 ML/MIN
[2021-10-30 08:22] LABS: BASOPHILS # (AUTO) 0.1 X10'3 (0-0.2); BASOPHILS % (AUTO) 1.2 % (0-1); EOSINOPHILS # (AUTO) 0.5 X10'3 (0-0.9); EOSINOPHILS % (AUTO) 5.4 % (0-6); HEMATOCRIT 28.8 % (42.0-52.0); HEMOGLOBIN 9.2 g/dl (14.0-17.9); LYMPHOCYTES # (AUTO) 1.4 X10'3 (1.1-4.8); LYMPHOCYTES % (AUTO) 16.2 % (21-51); MEAN CORPUSCULAR HEMOGLOBIN 26.9 PG (27.0-31.0); MEAN CORPUSCULAR VOLUME 84.1 FL (78-98); MEAN PLATELET VOLUME 8.3 FL (7.4-10.4); MONOCYTES # (AUTO) 0.5 X10'3 (0-0.9); MONOCYTES % (AUTO) 5.4 % (2-12); NEUTROPHILS # (AUTO) 6.4 X10'3 (1.8-7.7); NEUTROPHILS % (AUTO) 71.8 % (42-75); PLATELET COUNT 311 X10'3 (140-440); RED BLOOD COUNT 3.43 X10'6 (4.70-6.10); RED CELL DISTRIBUTION WIDTH 16.9 % (11.5-14.5); WHITE BLOOD COUNT 8.8 X10'3 (4.5-11.0)
[2021-10-30] MEDS: pantoprazole 40MG/NS 100ML BAG 100 ML IV SCH (08:28)
[2021-10-30] MEDS: enoxaparin 40mg/0.4ml syringe SQ SCH ×2 (08:28→21:30)
[2021-10-30] MEDS: zinc sulfate 220mg capsule PEG SCH ×3 (08:29→21:31)
[2021-10-30] MEDS: MULTIVIT-MIN/FERROUS GLUCONATE 9 MG/15 ML LIQUID PEG SCH (08:29)
[2021-10-30] MEDS: docusate sodium 100mg/10ml UD cup PEG SCH (08:29)
[2021-10-30] MEDS: lactobacillus rhamnosus 10,000 MMU CELLS/CAPSULE PEG SCH ×2 (08:29→21:30)
[2021-10-30] MEDS: propranolol 10mg tablet PEG SCH ×2 (08:30→21:31)
[2021-10-30] MEDS: nystatin 15 GM powder TP SCH ×3 (08:30→21:31)
[2021-10-30] MEDS: ferrous sulfate 300mg/5ml UD oral liquid PEG SCH (08:30)
[2021-10-30] MEDS: quetiapine 100mg tablet PEG SCH ×2 (08:30→21:29)
[2021-10-30 09:04] LABS: MAGNESIUM 2.2 MG/DL (1.5-2.4); PHOSPHORUS 5.3 MG/DL (2.3-4.5)
--- NOTE | 2021-10-30 11:24 | NUR ---
F/u: Patient's serum Na is trending upwards, currently elevated at 151 MMOL/L, not receiving water flushes. Pt to begin 200 mL water flush Q4H per MD, EMR updated. Noted pt with several low blood sugars, MD notified, glycemic protocol to be adjusted accordingly per RN. Addendum: 10/30/21 at [address] Amended: Links added.
[2021-10-30] MEDS ORDERED: mineral oil 133ml enema RC ONE (11:40)
[2021-10-30 11:46] LABS: GLUCOSE 50 MG/DL (70-104)
[2021-10-30] MEDS: polyethylene glycol 3350 17gm powd pack PO SCH (12:49)
[2021-10-30] MEDS: fentaNYL 50MCG/HOUR patch.TD72 TD SCH (14:16)
[2021-10-30] MEDS: ondansetron/PF 4mg/2ml inj IV PRN (16:50)
--- NOTE | 2021-10-30 18:30 | NUR ---
Patient in room CICU 2008. I have received report from Jefferson BOWEN with Teresa BOWEN and had the opportunity to ask questions and assume patient care.
[2021-10-30] MEDS: insulin glargine (Lantus) pen - multi-dose SQ SCH (21:36)
[2021-10-30] MEDS: insulin regular, human U-100 3ml vial - multi-dose SQ SCH (21:37)
[2021-10-31] VITALS (24 sets, daily range): BP systolic 108–137; BP diastolic 53–83
[2021-10-31] MEDS: LORazepam 1 MG tablet PEG SCH ×2 (00:10→07:45)
[2021-10-31] MEDS: gabapentin 100mg capsule PEG SCH ×4 (00:10→23:55)
[2021-10-31] MEDS: cloNIDine 0.1 mg tablet PEG SCH ×4 (00:10→23:55)
[2021-10-31] MEDS: sevelamer carbonate 0.8gm powder pkt PEG SCH ×4 (02:11→19:54)
[2021-10-31 02:53] LABS: BASOPHILS # (AUTO) 0.1 X10'3 (0-0.2); BASOPHILS % (AUTO) 1.1 % (0-1); EOSINOPHILS # (AUTO) 0.4 X10'3 (0-0.9); EOSINOPHILS % (AUTO) 5.3 % (0-6); HEMATOCRIT 29.3 % (42.0-52.0); HEMOGLOBIN 9.2 g/dl (14.0-17.9); LYMPHOCYTES # (AUTO) 1.1 X10'3 (1.1-4.8); LYMPHOCYTES % (AUTO) 16.6 % (21-51); MEAN CORPUSCULAR HEMOGLOBIN 26.2 PG (27.0-31.0); MEAN CORPUSCULAR HGB CONC 31.2 g/dL (33.0-36.5); MEAN PLATELET VOLUME 8.7 FL (7.4-10.4); MONOCYTES # (AUTO) 0.5 X10'3 (0-0.9); MONOCYTES % (AUTO) 7.2 % (2-12); NEUTROPHILS # (AUTO) 4.8 X10'3 (1.8-7.7); NEUTROPHILS % (AUTO) 69.8 % (42-75); PLATELET COUNT 279 X10'3 (140-440); RED BLOOD COUNT 3.49 X10'6 (4.70-6.10); RED CELL DISTRIBUTION WIDTH 16.8 % (11.5-14.5); WHITE BLOOD COUNT 6.9 X10'3 (4.5-11.0)
[2021-10-31 03:04] LABS: D-DIMER 2.35 MG/L FEU (0-0.50)
[2021-10-31 03:14] LABS: ALBUMIN 2.8 G/DL (3.4-5.0); ANION GAP 4 (8-16); BLOOD UREA NITROGEN 15 MG/DL (7-18); BUN/CREATININE RATIO 71.4 (5.4-32.0); C-REACTIVE PROTEIN 3.28 MG/DL (0.0-0.5); CALCIUM 9.6 MG/DL (8.5-10.1); CHLORIDE 103 MMOL/L (99-107); CREATININE 0.21 MG/DL (0.60-1.10); GLUCOSE 106 MG/DL (70-104); LACTATE DEHYDROGENASE 162 U/L (85-227); MAGNESIUM 2.1 MG/DL (1.5-2.4); PHOSPHORUS 5.9 MG/DL (2.3-4.5); POTASSIUM 4.1 MMOL/L (3.5-5.1); SODIUM 148 MMOL/L (135-145); eGFR > 90 ML/MIN
[2021-10-31 03:37] LABS: TOTAL CARBON DIOXIDE 40.7 MMOL/L (24-32)
[2021-10-31] MEDS: acetaminophen 325mg/10.15ml oral unit dose solution PEG PRN (05:35)
[2021-10-31] MEDS: ondansetron/PF 4mg/2ml inj IV PRN (05:45)
--- NOTE | 2021-10-31 06:07 | NUR ---
Orientee documentation: I have reviewed and agree with all interventions, assessments performed and documented by Teresa BOWEN . [place] Medication Administration: For this medication-pass time frame, all medication were reviewed, dispensed, administered and documented per hospital policy by Teresa BOWEN .
--- NOTE | 2021-10-31 06:12 | NUR ---
Problems reprioritized. Patient report given, questions answered & plan of care reviewed with oncoming shift.
[2021-10-31] MEDS: ferrous sulfate 300mg/5ml UD oral liquid PEG SCH (07:43)
[2021-10-31] MEDS: enoxaparin 40mg/0.4ml syringe SQ SCH ×2 (07:43→19:54)
[2021-10-31] MEDS: pantoprazole 40MG/NS 100ML BAG 100 ML IV SCH (07:43)
[2021-10-31] MEDS: polyethylene glycol 3350 17gm powd pack PO SCH (07:43)
[2021-10-31] MEDS: MULTIVIT-MIN/FERROUS GLUCONATE 9 MG/15 ML LIQUID PEG SCH (07:43)
[2021-10-31] MEDS: docusate sodium 100mg/10ml UD cup PEG SCH (07:44)
[2021-10-31] MEDS: lactobacillus rhamnosus 10,000 MMU CELLS/CAPSULE PEG SCH ×2 (07:44→20:00)
[2021-10-31] MEDS: propranolol 10mg tablet PEG SCH ×2 (07:44→19:56)
[2021-10-31] MEDS: quetiapine 100mg tablet PEG SCH (07:45)
[2021-10-31] MEDS: zinc sulfate 220mg capsule PEG SCH ×3 (07:45→20:00)
[2021-10-31] MEDS: nystatin 15 GM powder TP SCH ×3 (07:45→20:00)
[2021-10-31] MEDS ORDERED: magnesium citrate 296ml oral solution PO ONE (11:35)
[2021-10-31] MEDS: LORazepam 1 MG tablet PO SCH ×2 (13:03→20:00)
--- NOTE | 2021-10-31 16:12 | NUR ---
Pt. had a large, soft, brown BM shortly after magnesium citrate was administered.
[2021-10-31] MEDS: QUEtiapine 25mg tablet PO SCH (19:55)
[2021-10-31] MEDS: insulin glargine (Lantus) pen - multi-dose SQ SCH (21:03)
[2021-10-31] MEDS: insulin regular, human U-100 3ml vial - multi-dose SQ SCH (21:04)
[2021-11-01] VITALS (24 sets, daily range): BP systolic 107–139; BP diastolic 65–97
[2021-11-01] MEDS: sevelamer carbonate 0.8gm powder pkt PEG SCH ×4 (02:21→20:11)
[2021-11-01 03:05] LABS: D-DIMER 1.73 MG/L FEU (0-0.50)
[2021-11-01 03:09] LABS: C-REACTIVE PROTEIN 2.66 MG/DL (0.0-0.5)
--- NOTE | 2021-11-01 06:21 | NUR ---
Problems reprioritized. Patient report given, questions answered & plan of care reviewed, Corinne BOWEN.
[2021-11-01] MEDS: zinc sulfate 220mg capsule PEG SCH ×3 (08:10→20:11)
[2021-11-01] MEDS: MULTIVIT-MIN/FERROUS GLUCONATE 9 MG/15 ML LIQUID PEG SCH (08:10)
[2021-11-01] MEDS: docusate sodium 100mg/10ml UD cup PEG SCH (08:10)
[2021-11-01] MEDS: pantoprazole 40MG/NS 100ML BAG 100 ML IV SCH (08:10)
[2021-11-01] MEDS: polyethylene glycol 3350 17gm powd pack PO SCH (08:10)
[2021-11-01] MEDS: QUEtiapine 25mg tablet PO SCH ×2 (08:11→20:10)
[2021-11-01] MEDS: gabapentin 100mg capsule PEG SCH ×3 (08:11→23:35)
[2021-11-01] MEDS: cloNIDine 0.1 mg tablet PEG SCH ×3 (08:11→23:35)
[2021-11-01] MEDS: LORazepam 1 MG tablet PO SCH ×3 (08:11→20:12)
[2021-11-01] MEDS: lactobacillus rhamnosus 10,000 MMU CELLS/CAPSULE PEG SCH ×2 (08:11→20:12)
[2021-11-01] MEDS: enoxaparin 40mg/0.4ml syringe SQ SCH ×2 (08:12→20:12)
[2021-11-01] MEDS: ferrous sulfate 300mg/5ml UD oral liquid PEG SCH (08:12)
[2021-11-01] MEDS: nystatin 15 GM powder TP SCH ×3 (08:12→20:43)
[2021-11-01] MEDS: propranolol 10mg tablet PEG SCH ×2 (08:12→20:10)
[2021-11-01] MEDS: insulin regular, human U-100 3ml vial - multi-dose SQ SCH ×3 (08:48→20:34)
[2021-11-01] MEDS: insulin glargine (Lantus) pen - multi-dose SQ SCH (20:43)
[2021-11-02] VITALS (21 sets, daily range): BP systolic 104–133; BP diastolic 58–98
[2021-11-02] MEDS: insulin regular, human U-100 3ml vial - multi-dose SQ SCH ×3 (01:15→20:14)
[2021-11-02] MEDS: sevelamer carbonate 0.8gm powder pkt PEG SCH ×4 (01:16→19:52)
[2021-11-02] MEDS: oxyCODONE IR 5mg (immed. release) tablet PEG PRN ×2 (03:19→19:53)
[2021-11-02 03:21] LABS: D-DIMER 1.68 MG/L FEU (0-0.50)
[2021-11-02 03:28] LABS: C-REACTIVE PROTEIN 2.36 MG/DL (0.0-0.5)
--- NOTE | 2021-11-02 06:40 | NUR ---
Problems reprioritized. Patient report given, questions answered & plan of care reviewed, Leigh RN
[2021-11-02] MEDS: docusate sodium 100mg/10ml UD cup PEG SCH (07:58)
[2021-11-02] MEDS: lactobacillus rhamnosus 10,000 MMU CELLS/CAPSULE PEG SCH ×2 (07:59→19:53)
[2021-11-02] MEDS: gabapentin 100mg capsule PEG SCH ×3 (07:59→23:28)
[2021-11-02] MEDS: cloNIDine 0.1 mg tablet PEG SCH ×3 (07:59→23:29)
[2021-11-02] MEDS: MULTIVIT-MIN/FERROUS GLUCONATE 9 MG/15 ML LIQUID PEG SCH (07:59)
[2021-11-02] MEDS: LORazepam 1 MG tablet PO SCH ×2 (08:00→19:54)
[2021-11-02] MEDS: lansoprazole 15mg solutab PEG SCH (08:00)
[2021-11-02] MEDS: ferrous sulfate 300mg/5ml UD oral liquid PEG SCH (08:00)
[2021-11-02] MEDS: nystatin 15 GM powder TP SCH ×3 (08:08→20:03)
[2021-11-02] MEDS: enoxaparin 40mg/0.4ml syringe SQ SCH ×2 (08:08→19:52)
[2021-11-02] MEDS: propranolol 10mg tablet PEG SCH ×2 (08:09→19:54)
[2021-11-02] MEDS: zinc sulfate 220mg capsule PEG SCH ×3 (08:09→20:03)
[2021-11-02] MEDS: QUEtiapine 25mg tablet PO SCH ×2 (08:09→19:52)
[2021-11-02] MEDS: polyethylene glycol 3350 17gm powd pack PO SCH (08:11)
--- NOTE | 2021-11-02 09:34 | NUR ---
Reassessment: Wounds appear to be healing with stable DTI to right achilles and bilat heels with wounds measuring smaller in size to bilat shins and bilat hips per WOC note. Pt continues tolerating TF at goal rate with GRV WNL. LBM 11/01. Pt receiving routine bowel care though required one time dose of Mag Citrate 10/31 as pt previously without a BM x 6 days. No changes to nutrition recommendations at this time. Will continue to follow. Recommendations: 1) Continuous Vital AF with goal rate of 85 mL/hr to provide 2040 mL total volume/day, 2448 kcal, 153 g protein, and 1654 mL water 2) Additional 200 mL flush Q4H per MD; monitor serum Na 3) Continue routine MVM with Iron and Zinc per MD 4) Routine Phos binder per MD 5) Prealbumin q Thursday/ 6) Daily scaled weights 7) Routine bowel care; utilize PRN bowel care 8) DM education once stable following official DM dx by physician; A1c 10.1% with no PMH DM in EMR; consider f/u A1c given over three months since initial A1c was obtained Addendum: 11/02/21 at [address] Amended: Links added.
[2021-11-02] MEDS: fentaNYL 50MCG/HOUR patch.TD72 TD SCH (13:49)
[2021-11-02] MEDS: insulin glargine (Lantus) pen - multi-dose SQ SCH (20:13)
[2021-11-03] VITALS (24 sets, daily range): BP systolic 98–135; BP diastolic 54–90
[2021-11-03] MEDS: sevelamer carbonate 0.8gm powder pkt PEG SCH ×4 (01:28→19:38)
[2021-11-03] MEDS: insulin regular, human U-100 3ml vial - multi-dose SQ SCH ×4 (01:31→20:19)
[2021-11-03 02:58] LABS: D-DIMER 1.79 MG/L FEU (0-0.50)
[2021-11-03 03:02] LABS: ALANINE AMINOTRANSFERASE 14 U/L (12-78); ALBUMIN 2.9 G/DL (3.4-5.0); ALBUMIN/GLOBULIN RATIO 0.7 (1.1-1.5); ALKALINE PHOSPHATASE 107 IU/L (46-116); ANION GAP 7 (8-16); ASPARTATE AMINO TRANSFERASE 5 U/L (10-37); BASOPHILS # (AUTO) 0.1 X10'3 (0-0.2); BASOPHILS % (AUTO) 0.8 % (0-1); BILIRUBIN,TOTAL 0.2 MG/DL (0.1-1.0); BLOOD UREA NITROGEN 9 MG/DL (7-18); BUN/CREATININE RATIO 33.3 (5.4-32.0); C-REACTIVE PROTEIN 2.26 MG/DL (0.0-0.5); CALCIUM 9.5 MG/DL (8.5-10.1); CHLORIDE 101 MMOL/L (99-107); CREATININE 0.27 MG/DL (0.60-1.10); EOSINOPHILS # (AUTO) 0.3 X10'3 (0-0.9); EOSINOPHILS % (AUTO) 4.7 % (0-6); GLUCOSE 126 MG/DL (70-104); HEMATOCRIT 30.3 % (42.0-52.0); HEMOGLOBIN 9.7 g/dl (14.0-17.9); LACTATE DEHYDROGENASE 157 U/L (85-227); LYMPHOCYTES # (AUTO) 1.4 X10'3 (1.1-4.8); LYMPHOCYTES % (AUTO) 18.3 % (21-51); MEAN CORPUSCULAR HEMOGLOBIN 26.1 PG (27.0-31.0); MEAN CORPUSCULAR VOLUME 81.6 FL (78-98); MEAN PLATELET VOLUME 8.8 FL (7.4-10.4); MONOCYTES # (AUTO) 0.5 X10'3 (0-0.9); MONOCYTES % (AUTO) 6.8 % (2-12); NEUTROPHILS # (AUTO) 5.1 X10'3 (1.8-7.7); NEUTROPHILS % (AUTO) 69.4 % (42-75); PLATELET COUNT 294 X10'3 (140-440); POTASSIUM 3.8 MMOL/L (3.5-5.1); RED BLOOD COUNT 3.72 X10'6 (4.70-6.10); RED CELL DISTRIBUTION WIDTH 17.1 % (11.5-14.5); SODIUM 145 MMOL/L (135-145); TOTAL CARBON DIOXIDE 36.8 MMOL/L (24-32); TOTAL PROTEIN 7.3 G/DL (6.4-8.2); WHITE BLOOD COUNT 7.4 X10'3 (4.5-11.0); eGFR > 90 ML/MIN
--- NOTE | 2021-11-03 06:07 | NUR ---
Problems reprioritized. Patient report given, questions answered & plan of care reviewed,
[2021-11-03] MEDS: lansoprazole 15mg solutab PEG SCH (07:29)
[2021-11-03] MEDS: QUEtiapine 25mg tablet PO SCH ×2 (07:33→19:37)
[2021-11-03] MEDS: cloNIDine 0.1 mg tablet PEG SCH ×3 (07:33→23:59)
[2021-11-03] MEDS: lactobacillus rhamnosus 10,000 MMU CELLS/CAPSULE PEG SCH ×2 (07:33→19:37)
[2021-11-03] MEDS: gabapentin 100mg capsule PEG SCH ×3 (07:33→23:59)
[2021-11-03] MEDS: polyethylene glycol 3350 17gm powd pack PO SCH (07:34)
[2021-11-03] MEDS: docusate sodium 100mg/10ml UD cup PEG SCH (07:34)
[2021-11-03] MEDS: ferrous sulfate 300mg/5ml UD oral liquid PEG SCH (07:34)
[2021-11-03] MEDS: LORazepam 1 MG tablet PO SCH ×2 (07:34→19:37)
[2021-11-03] MEDS: MULTIVIT-MIN/FERROUS GLUCONATE 9 MG/15 ML LIQUID PEG SCH (07:34)
[2021-11-03] MEDS: zinc sulfate 220mg capsule PEG SCH ×3 (07:34→20:29)
[2021-11-03] MEDS: propranolol 10mg tablet PEG SCH ×2 (07:34→19:37)
[2021-11-03] MEDS: enoxaparin 40mg/0.4ml syringe SQ SCH ×2 (07:35→19:38)
[2021-11-03] MEDS: nystatin 15 GM powder TP SCH ×3 (07:35→20:29)
[2021-11-03] MEDS ORDERED: iohexol 300mg/ml 100ml inj. ONE (10:22)
--- NOTE | 2021-11-03 10:58 | NUR ---
To CT scan at 1016. Back from Ct scan now. Family at bedside.
--- NOTE | 2021-11-03 11:46 | NUR ---
controller operations and hr manager arranging transfer to [facility] [place]. Addendum: 11/03/21 at 1147 by Debora Suarez RN yesica chart
--- NOTE | 2021-11-03 11:46 | NUR ---
Placed Right chest tube to suction at [address] Boyer.
--- NOTE | 2021-11-03 13:48 | NUR ---
Mauricio. bhagat dressings changed as they were dated 10/31 and should be done daily. Unable to take weekly wound photos as camera battery is gone. internal affairs commander aware.
--- NOTE | 2021-11-03 18:07 | NUR ---
Problems reprioritized. Patient report given, questions answered & plan of care reviewed with noc RN .
[2021-11-03] MEDS: oxyCODONE IR 5mg (immed. release) tablet PEG PRN (19:37)
[2021-11-03] MEDS: insulin glargine (Lantus) pen - multi-dose SQ SCH (20:18)
[2021-11-04] VITALS (24 sets, daily range): BP systolic 109–136; BP diastolic 69–94
[2021-11-04] MEDS: sevelamer carbonate 0.8gm powder pkt PEG SCH ×4 (01:26→19:25)
[2021-11-04 02:55] LABS: D-DIMER 1.88 MG/L FEU (0-0.50)
[2021-11-04 02:57] LABS: ALBUMIN 2.9 G/DL (3.4-5.0); ANION GAP 7 (8-16); BLOOD UREA NITROGEN 10 MG/DL (7-18); BUN/CREATININE RATIO 41.7 (5.4-32.0); C-REACTIVE PROTEIN 1.92 MG/DL (0.0-0.5); CALCIUM 10.1 MG/DL (8.5-10.1); CHLORIDE 101 MMOL/L (99-107); CREATININE 0.24 MG/DL (0.60-1.10); GLUCOSE 130 MG/DL (70-104); LACTATE DEHYDROGENASE 151 U/L (85-227); PHOSPHORUS 5.1 MG/DL (2.3-4.5); POTASSIUM 3.7 MMOL/L (3.5-5.1); SODIUM 144 MMOL/L (135-145); TOTAL CARBON DIOXIDE 36.3 MMOL/L (24-32); eGFR > 90 ML/MIN
--- NOTE | 2021-11-04 06:03 | NUR ---
Problems reprioritized. Patient report given, questions answered & plan of care reviewed withASYA
--- NOTE | 2021-11-04 06:15 | NUR ---
Patient in room CICU 2008. I have received report from Lul BOWEN and had the opportunity to ask questions and assume patient care.
[2021-11-04] MEDS: polyethylene glycol 3350 17gm powd pack PO SCH (07:27)
[2021-11-04] MEDS: zinc sulfate 220mg capsule PEG SCH ×3 (07:28→20:07)
[2021-11-04] MEDS: ferrous sulfate 300mg/5ml UD oral liquid PEG SCH (07:28)
[2021-11-04] MEDS: docusate sodium 100mg/10ml UD cup PEG SCH (07:28)
[2021-11-04] MEDS: lansoprazole 15mg solutab PEG SCH (07:28)
[2021-11-04] MEDS: propranolol 10mg tablet PEG SCH ×2 (07:28→19:24)
[2021-11-04] MEDS: QUEtiapine 25mg tablet PO SCH ×2 (07:28→19:25)
[2021-11-04] MEDS: enoxaparin 40mg/0.4ml syringe SQ SCH ×2 (07:28→19:25)
[2021-11-04] MEDS: LORazepam 1 MG tablet PO SCH (07:28)
[2021-11-04] MEDS: cloNIDine 0.1 mg tablet PEG SCH ×3 (07:28→23:32)
[2021-11-04] MEDS: lactobacillus rhamnosus 10,000 MMU CELLS/CAPSULE PEG SCH ×2 (07:28→19:24)
[2021-11-04] MEDS: MULTIVIT-MIN/FERROUS GLUCONATE 9 MG/15 ML LIQUID PEG SCH (07:28)
[2021-11-04] MEDS: gabapentin 100mg capsule PEG SCH ×3 (07:28→23:32)
[2021-11-04] MEDS: insulin regular, human U-100 3ml vial - multi-dose SQ SCH ×3 (07:30→20:48)
[2021-11-04] MEDS: nystatin 15 GM powder TP SCH ×3 (07:38→20:50)
[2021-11-04] MEDS: proCHLORperazine 10 MG/2 ml inj IV PRN (07:43)
--- NOTE | 2021-11-04 07:46 | NUR ---
c/o nausea. Antiemetic administered. Dr. Boyer at bedside.
--- NOTE | 2021-11-04 10:26 | NUR ---
ROUNDS NOTE: Dr. Hernandez to consult this week (Thursday). Pt. to remain in ICU until it is decided if a VATS procedure is needed.
--- NOTE | 2021-11-04 12:47 | NUR ---
Katarzyna. working with patient.
--- NOTE | 2021-11-04 13:19 | NUR ---
To chair per PT. Call light in reach.
[2021-11-04] MEDS: insulin glargine (Lantus) pen - multi-dose SQ SCH (20:50)
[2021-11-05] VITALS (24 sets, daily range): BP systolic 107–139; BP diastolic 52–88
--- NOTE | 2021-11-05 00:12 | NUR ---
35 yo male, admitted 07/23/2021, day 104 of hospitalization, full code, NDA, no isolation, no restraints. Initially pt was seen 07/10/2021 in ER for COVID symptoms for 8 days prior to the first ER visit. 07/23/2021 pt return to ER for increased SOB, placed BiPAP admission to ICU. 07/24/2021 pt was emergently intubated. 07/30/2021 pt placed on Rotoprone bed. 08/09/2021 Right pneumo- chest tube placed. 08/10/2021 left TENSION Pneumo- chest tube placed . 08/22/2021 GIB- Protonix gtt started . 08/26/2021 Left pneumo increased. 08/27/2021 Hgb dropped- blood transfusion. 08/29/2021 PICC Line placed HELEN. 09/05/2021 CT C/A/P and head. 09/08/2021 hgb low transfuse 1 unit PRBC, 09/15/2021 chest tubes discontinued, 09/16/2021 hgb low transfuse 1 unit PRBC, 09/20/2021 placed back on Rotoprone bed at 20:00. 09/21/2021 transfused 1 unit PRBC. 09/21/2021 transfused 1 unit PRBC's. 09/25/2021 CTA chest, chest tube placed. 09/25/2021 off Rotoprone bed. 10/01/2021 Trach and peg placed. 10/12/2021 T-Piece. 10/13/2021 CT chest, chest tube removed. 10/16/2021 RT pneumo, chest tube. 10/21/2021 New MIGUEL A TL PICC line. 10/22/2021 heated aerosol 12L 50% FIO2. 10/22/2021 stood at bedside. 10/23/2021 Blood patch pleurodesis to CT #2. 10/26/2021 OOB to chair with PT, Trach collar 40% FIO2. 10/27/2021 Chest tube #2 RT lower removed. 11/02/2021 RT upper chest tube clamped. 11/03/2021 CT chest RT pneumo worse, chest tube to suction. Small Left pneumo present. Currently pt is afebrile 36.3 oral, Pt is AAO times 4, follows all commands, Pt was OOB to chair from [id number], moves all extremities with notable weakness, left arm and wrist notable greater weakness. Pt with trach unable to speak without Passy agata valve. HR 99 SR BP 128/88. Weak pulses, no edema noted. No IVF. MIGUEL A TL PICC line f/p dressing CDI, good blood return. Lovenox for DVT prophylaxis. Rt chest tube placed 10/16/2021 no drainage noted, dressing CDI and reinforced. Trached 10/02/2021, #8.0 Shiley. 40% Trach collar, Saturation 99-100%. Breath sounds, Coarse, diminished, equal, symmetrical. Hypoactive bowel sounds, soft nontender non distended. Peg tube placed 10/02/2021, Vital AF infusing at goal rate of 85 ml's hr. Well tolerated. no residual noted, Q 4 hour water flush 200 ml's hr. Glucose checks Q 6 hours at level 2. Coverage with regular insulin and Lantus HS. Prevacid for GI prophylaxis. Pt voiding via urinal able to manipulate without assistance. Multiple skin issues in healing stages. Pt OOB to chair and while in bed turned Q 2 hours. Pt remains safe, Continue to monitor. Addendum: 11/05/21 at 0145 by Isaac Camejo RN Noted Fentanyl patch HELEN. Addendum: 11/05/21 at 0610 by Isaac Camejo RN 0530 pt placed in chair, Passy Agata Valve placed, pt tolerating, patient talking, trach collar in place, 10L oxygen. saturation 97-98%.
[2021-11-05] MEDS: sevelamer carbonate 0.8gm powder pkt PEG SCH ×4 (01:19→19:37)
[2021-11-05] MEDS: insulin regular, human U-100 3ml vial - multi-dose SQ SCH ×3 (01:59→20:54)
[2021-11-05 02:28] LABS: C-REACTIVE PROTEIN 1.11 MG/DL (0.0-0.5)
[2021-11-05] MEDS: polyethylene glycol 3350 17gm powd pack PO SCH (08:00)
[2021-11-05] MEDS: lansoprazole 15mg solutab PEG SCH (09:12)
[2021-11-05] MEDS: propranolol 10mg tablet PEG SCH ×2 (09:13→19:37)
[2021-11-05] MEDS: cloNIDine 0.1 mg tablet PEG SCH ×2 (09:13→15:48)
[2021-11-05] MEDS: lactobacillus rhamnosus 10,000 MMU CELLS/CAPSULE PEG SCH ×2 (09:13→19:37)
[2021-11-05] MEDS: gabapentin 100mg capsule PEG SCH ×2 (09:13→15:48)
[2021-11-05] MEDS: LORazepam 1 MG tablet PO SCH (09:14)
[2021-11-05] MEDS: docusate sodium 100mg/10ml UD cup PEG SCH (09:15)
[2021-11-05] MEDS: enoxaparin 40mg/0.4ml syringe SQ SCH ×2 (09:15→19:38)
[2021-11-05] MEDS: zinc sulfate 220mg capsule PEG SCH ×3 (09:15→20:51)
[2021-11-05] MEDS: MULTIVIT-MIN/FERROUS GLUCONATE 9 MG/15 ML LIQUID PEG SCH (09:16)
[2021-11-05] MEDS: ferrous sulfate 300mg/5ml UD oral liquid PEG SCH (09:16)
[2021-11-05] MEDS: nystatin 15 GM powder TP SCH ×3 (09:17→20:52)
[2021-11-05] MEDS: fentaNYL 25MCG/hour patch.TD72 TD SCH (12:00)
--- NOTE | 2021-11-05 15:30 | NUR ---
PRIMARY CARE RN YISEL OBSERVED THAT FENTANYL PATCH WASN'T ON PATIENT. CONFIRMED AND CALLED AND DISCUSSED WITH PHARMACIST FELISHA. SHE NOTIFIED DAVID PHARM DIRECTOR AND WILL WRITE INCIDENT REPORT Addendum: 11/05/21 at 1535 by Gifty Guerrero RN REASSESSED PT FENTANYL PATCH FOUND. FELISHA IN PHARMACY NOTIFIED
[2021-11-05] MEDS: QUEtiapine 25mg tablet PO SCH (20:51)
[2021-11-05] MEDS: insulin glargine (Lantus) pen - multi-dose SQ SCH (20:52)
[2021-11-06] VITALS (24 sets, daily range): BP systolic 111–139; BP diastolic 70–94
[2021-11-06] MEDS: gabapentin 100mg capsule PEG SCH ×3 (00:18→15:00)
[2021-11-06] MEDS: cloNIDine 0.1 mg tablet PEG SCH ×3 (00:18→15:00)
[2021-11-06] MEDS: sevelamer carbonate 0.8gm powder pkt PEG SCH ×4 (02:19→20:01)
[2021-11-06] MEDS: insulin regular, human U-100 3ml vial - multi-dose SQ SCH ×3 (02:22→20:46)
[2021-11-06 02:28] LABS: BASOPHILS # (AUTO) 0.1 X10'3 (0-0.2); BASOPHILS % (AUTO) 0.8 % (0-1); EOSINOPHILS # (AUTO) 0.4 X10'3 (0-0.9); HEMATOCRIT 29.9 % (42.0-52.0); HEMOGLOBIN 9.8 g/dl (14.0-17.9); LYMPHOCYTES # (AUTO) 1.6 X10'3 (1.1-4.8); LYMPHOCYTES % (AUTO) 25.5 % (21-51); MEAN CORPUSCULAR HEMOGLOBIN 26.8 PG (27.0-31.0); MEAN CORPUSCULAR HGB CONC 32.7 g/dL (33.0-36.5); MEAN CORPUSCULAR VOLUME 81.9 FL (78-98); MEAN PLATELET VOLUME 8.4 FL (7.4-10.4); MONOCYTES # (AUTO) 0.6 X10'3 (0-0.9); NEUTROPHILS # (AUTO) 3.6 X10'3 (1.8-7.7); NEUTROPHILS % (AUTO) 58.7 % (42-75); PLATELET COUNT 282 X10'3 (140-440); RED BLOOD COUNT 3.65 X10'6 (4.70-6.10); RED CELL DISTRIBUTION WIDTH 17.1 % (11.5-14.5); WHITE BLOOD COUNT 6.1 X10'3 (4.5-11.0)
--- NOTE | 2021-11-06 02:34 | NUR ---
35 yo male, admitted 07/23/2021, day 105 of hospitalization, full code, NDA, no isolation, no restraints. Initially pt was seen 07/10/2021 in ER for COVID symptoms for 8 days prior to the first ER visit. 07/23/2021 pt return to ER for increased SOB, placed BiPAP admission to ICU. 07/24/2021 pt was emergently intubated. 07/30/2021 pt placed on Rotoprone bed. 08/09/2021 Right pneumo- chest tube placed. 08/10/2021 left TENSION Pneumo- chest tube placed . 08/22/2021 GIB- Protonix gtt started . 08/26/2021 Left pneumo increased. 08/27/2021 Hgb dropped- blood transfusion. 08/29/2021 PICC Line placed HELEN. 09/05/2021 CT C/A/P and head. 09/08/2021 hgb low transfuse 1 unit PRBC, 09/15/2021 chest tubes discontinued, 09/16/2021 hgb low transfuse 1 unit PRBC, 09/20/2021 placed back on Rotoprone bed at 20:00. 09/21/2021 transfused 1 unit PRBC. 09/21/2021 transfused 1 unit PRBC's. 09/25/2021 CTA chest, chest tube placed. 09/25/2021 off Rotoprone bed. 10/01/2021 Trach and peg placed. 10/12/2021 T-Piece. 10/13/2021 CT chest, chest tube removed. 10/16/2021 RT pneumo, chest tube. 10/21/2021 New MIGUEL A TL PICC line. 10/22/2021 heated aerosol 12L 50% FIO2. 10/22/2021 stood at bedside. 10/23/2021 Blood patch pleurodesis to CT #2. 10/26/2021 OOB to chair with PT, Trach collar 40% FIO2. 10/27/2021 Chest tube #2 RT lower removed. 11/02/2021 RT upper chest tube clamped. 11/03/2021 CT chest RT pneumo worse, chest tube to suction. Small Left pneumo present. 11/05/2021 OOB to chair for 4 hours, 40% trach collar and Passy Elena valve. Currently pt is afebrile 36.3 oral, Pt is AAO times 4, follows all commands, Pt was OOB to chair from [id number], pt did not want to sit OOB because he he felt too tired. Pt had been in bed all day without any Physical Therapy. Pt was OOB at 0530 till 1000, and remained in bed for the remainder of the day till 1900. Pt moves all extremities with notable weakness, left arm and wrist notable greater weakness. Pt with trach unable to speak without Passy Elena valve. HR 99 SR BP 128/88. Weak pulses, trace edema noted. No IVF. MIGUEL A TL PICC line f/p dressing CDI, good blood return. Lovenox for DVT prophylaxis. Rt chest tube placed 10/16/2021 no drainage noted, dressing CDI and reinforced. Trached 10/02/2021, #8.0 Shiley. 40% Trach collar, Saturation 99-100%. Breath sounds, Coarse, diminished, equal, symmetrical. Hypoactive bowel sounds, soft nontender non distended. Peg tube placed 10/02/2021, Vital AF infusing at goal rate of 85 ml's hr. Well tolerated. no residual noted, Q 4 hour water flush 200 ml's hr. Glucose checks Q 6 hours at level 2. Coverage with regular insulin and Lantus HS. Prevacid for GI prophylaxis. Pt voiding via urinal able to manipulate without assistance. Multiple skin issues in healing multiple different stages stages. Pt OOB to chair and while in bed turned Q 2 hours. Pt remains safe, Continue to monitor. Addendum: 11/06/21 at 0244 by Isaac Camejo RN Fentanyl patch left shoulder.
[2021-11-06 02:37] LABS: D-DIMER 1.87 MG/L FEU (0-0.50)
[2021-11-06 02:41] LABS: ALANINE AMINOTRANSFERASE 16 U/L (12-78); ALBUMIN 3.1 G/DL (3.4-5.0); ALBUMIN/GLOBULIN RATIO 0.7 (1.1-1.5); ALKALINE PHOSPHATASE 102 IU/L (46-116); ANION GAP 8 (8-16); ASPARTATE AMINO TRANSFERASE 9 U/L (10-37); BILIRUBIN,TOTAL 0.3 MG/DL (0.1-1.0); BLOOD UREA NITROGEN 10 MG/DL (7-18); BUN/CREATININE RATIO 34.5 (5.4-32.0); C-REACTIVE PROTEIN 0.77 MG/DL (0.0-0.5); CALCIUM 10.2 MG/DL (8.5-10.1); CHLORIDE 101 MMOL/L (99-107); CREATININE 0.29 MG/DL (0.60-1.10); GLUCOSE 119 MG/DL (70-104); LACTATE DEHYDROGENASE 140 U/L (85-227); POTASSIUM 3.6 MMOL/L (3.5-5.1); SODIUM 142 MMOL/L (135-145); TOTAL PROTEIN 7.4 G/DL (6.4-8.2); eGFR > 90 ML/MIN
[2021-11-06] MEDS ORDERED: docusate sodium 100mg/10ml UD cup PO SCH (08:00)
[2021-11-06] MEDS: enoxaparin 40mg/0.4ml syringe SQ SCH ×2 (08:21→20:02)
[2021-11-06] MEDS: docusate sodium 100mg/10ml UD cup PEG SCH (08:21)
[2021-11-06] MEDS: polyethylene glycol 3350 17gm powd pack PO SCH (08:22)
[2021-11-06] MEDS: propranolol 10mg tablet PEG SCH ×2 (08:22→20:01)
[2021-11-06] MEDS: LORazepam 1 MG tablet PO SCH (08:22)
[2021-11-06] MEDS: lactobacillus rhamnosus 10,000 MMU CELLS/CAPSULE PEG SCH ×2 (08:22→20:01)
[2021-11-06] MEDS: ferrous sulfate 300mg/5ml UD oral liquid PEG SCH (08:22)
[2021-11-06] MEDS: MULTIVIT-MIN/FERROUS GLUCONATE 9 MG/15 ML LIQUID PEG SCH (08:22)
[2021-11-06] MEDS: zinc sulfate 220mg capsule PEG SCH ×3 (08:22→20:02)
[2021-11-06] MEDS: lansoprazole 15mg solutab PEG SCH (08:22)
[2021-11-06] MEDS: nystatin 15 GM powder TP SCH ×3 (08:23→20:02)
--- NOTE | 2021-11-06 13:40 | NUR ---
Reassessment: Pt s/p BSS with ST recs pureed food with thin liquids and pt needs to take small bites and sips with [place] valve in place when eating/drinking. Pending documentation of PO intake since diet advancement. Pt continues to receive TF via G-tube at this time which is meeting estimated nutrient needs and pt tolerating with GRV WNL. Recommend continuing with TF until pt consistently able to tolerate adequate PO intake. D/w MD recommendation for new A1c given greater than three months since initial A1c was obtained. MD agreed, results pending at this time. LBM 11/04. Will continue to follow and monitor need to adjust TF recommendations pending trends in PO intake. Recommendations: 1) Continue pureed diet with thin liquids per recs 2) Continuous Vital AF with goal rate of 85 mL/hr to provide 2040 mL total volume/day, 2448 kcal, 153 g protein, and 1654 mL water 3) Continue with TF until pt consistently with adequate PO intake; monitor need to adjust TF recs 4) Additional 200 mL flush Q4H per MD; monitor serum Na 5) Continue routine MVM with Iron and Zinc per MD 6) Routine Phos binder per MD 7) Prealbumin q Thursday/ 8) Daily scaled weights 9) Routine bowel care; utilize PRN bowel care 10) DM education once stable following official DM dx by physician; A1c 10.1% with no PMH DM in EMR on admit; new A1c pending given over three months since initial A1c was obtained Addendum: 11/06/21 at [address] Amended: Links added.
[2021-11-06] MEDS: QUEtiapine 25mg tablet PO SCH (20:02)
[2021-11-06] MEDS: sennosides 8.6mg tablet PO SCH (20:02)
[2021-11-06] MEDS: insulin glargine (Lantus) pen - multi-dose SQ SCH (20:44)
[2021-11-07] VITALS (24 sets, daily range): BP systolic 115–142; BP diastolic 65–97
[2021-11-07] MEDS: cloNIDine 0.1 mg tablet PEG SCH ×4 (00:43→23:44)
[2021-11-07] MEDS: gabapentin 100mg capsule PEG SCH ×4 (00:43→23:44)
[2021-11-07] MEDS: sevelamer carbonate 0.8gm powder pkt PEG SCH ×4 (02:02→20:53)
[2021-11-07 02:56] LABS: BASOPHILS # (AUTO) 0.1 X10'3 (0-0.2); BASOPHILS % (AUTO) 0.8 % (0-1); EOSINOPHILS # (AUTO) 0.5 X10'3 (0-0.9); EOSINOPHILS % (AUTO) 7.2 % (0-6); HEMATOCRIT 31.3 % (42.0-52.0); HEMOGLOBIN 10.1 g/dl (14.0-17.9); LYMPHOCYTES # (AUTO) 1.5 X10'3 (1.1-4.8); LYMPHOCYTES % (AUTO) 23.2 % (21-51); MEAN CORPUSCULAR HEMOGLOBIN 26.1 PG (27.0-31.0); MEAN CORPUSCULAR HGB CONC 32.1 g/dL (33.0-36.5); MEAN CORPUSCULAR VOLUME 81.4 FL (78-98); MEAN PLATELET VOLUME 8.5 FL (7.4-10.4); MONOCYTES # (AUTO) 0.6 X10'3 (0-0.9); MONOCYTES % (AUTO) 9.2 % (2-12); NEUTROPHILS # (AUTO) 3.8 X10'3 (1.8-7.7); NEUTROPHILS % (AUTO) 59.6 % (42-75); PLATELET COUNT 307 X10'3 (140-440); RED BLOOD COUNT 3.85 X10'6 (4.70-6.10); RED CELL DISTRIBUTION WIDTH 17.9 % (11.5-14.5); WHITE BLOOD COUNT 6.4 X10'3 (4.5-11.0)
[2021-11-07 02:57] LABS: D-DIMER 2.23 MG/L FEU (0-0.50)
[2021-11-07 02:58] LABS: ANION GAP 9 (8-16); BLOOD UREA NITROGEN 12 MG/DL (7-18); BUN/CREATININE RATIO 38.7 (5.4-32.0); C-REACTIVE PROTEIN 0.55 MG/DL (0.0-0.5); CHLORIDE 101 MMOL/L (99-107); CREATININE 0.31 MG/DL (0.60-1.10); GLUCOSE 106 MG/DL (70-104); LACTATE DEHYDROGENASE 157 U/L (85-227); PHOSPHORUS 5.1 MG/DL (2.3-4.5); POTASSIUM 3.9 MMOL/L (3.5-5.1); SODIUM 142 MMOL/L (135-145); TOTAL CARBON DIOXIDE 31.8 MMOL/L (24-32); eGFR > 90 ML/MIN
[2021-11-07] MEDS: lansoprazole 15mg solutab PEG SCH (08:05)
[2021-11-07] MEDS: zinc sulfate 220mg capsule PEG SCH ×3 (08:05→20:53)
[2021-11-07] MEDS: polyethylene glycol 3350 17gm powd pack PO SCH (08:06)
[2021-11-07] MEDS: MULTIVIT-MIN/FERROUS GLUCONATE 9 MG/15 ML LIQUID PEG SCH (08:06)
[2021-11-07] MEDS: propranolol 10mg tablet PEG SCH (08:06)
[2021-11-07] MEDS: lactobacillus rhamnosus 10,000 MMU CELLS/CAPSULE PEG SCH ×2 (08:06→20:53)
[2021-11-07] MEDS: ferrous sulfate 300mg/5ml UD oral liquid PEG SCH (08:06)
[2021-11-07] MEDS: docusate sodium 100mg/10ml UD cup PEG SCH (08:06)
[2021-11-07] MEDS: nystatin 15 GM powder TP SCH ×3 (08:06→20:54)
[2021-11-07] MEDS: enoxaparin 40mg/0.4ml syringe SQ SCH ×2 (08:12→20:53)
[2021-11-07] MEDS: insulin regular, human U-100 3ml vial - multi-dose SQ SCH ×2 (09:11→21:21)
[2021-11-07] MEDS ORDERED: predniSONE 20 mg tablet PO ONE (10:55)
[2021-11-07] MEDS ORDERED: fluconazole 100mg tablet PO ONE (11:00)
[2021-11-07] MEDS: loratadine 10mg tablet PO SCH (12:04)
[2021-11-07] MEDS: sennosides 8.6mg tablet PO SCH (20:54)
[2021-11-07] MEDS: metoprolol tartrate 25mg tablet PO SCH (20:55)
[2021-11-07] MEDS: insulin glargine (Lantus) pen - multi-dose SQ SCH (21:20)
[2021-11-07] MEDS: oxyCODONE IR 5mg (immed. release) tablet PEG PRN (23:44)
[2021-11-08] VITALS (20 sets, daily range): BP systolic 100–124; BP diastolic 60–88
[2021-11-08] MEDS: LORazepam 2 mg/ml vial IV PRN (00:17)
[2021-11-08 02:17] LABS: BASOPHILS % (AUTO) 0.8 % (0-1); EOSINOPHILS % (AUTO) 0.8 % (0-6); HEMATOCRIT 28.9 % (42.0-52.0); HEMOGLOBIN 9.5 g/dl (14.0-17.9); LYMPHOCYTES # (AUTO) 1.9 X10'3 (1.1-4.8); LYMPHOCYTES % (AUTO) 30.3 % (21-51); MEAN CORPUSCULAR HEMOGLOBIN 27.1 PG (27.0-31.0); MEAN CORPUSCULAR HGB CONC 32.9 g/dL (33.0-36.5); MEAN CORPUSCULAR VOLUME 82.3 FL (78-98); MEAN PLATELET VOLUME 8.5 FL (7.4-10.4); MONOCYTES # (AUTO) 0.8 X10'3 (0-0.9); MONOCYTES % (AUTO) 12.4 % (2-12); NEUTROPHILS # (AUTO) 3.4 X10'3 (1.8-7.7); NEUTROPHILS % (AUTO) 55.7 % (42-75); PLATELET COUNT 305 X10'3 (140-440); RED BLOOD COUNT 3.51 X10'6 (4.70-6.10); RED CELL DISTRIBUTION WIDTH 17.6 % (11.5-14.5); WHITE BLOOD COUNT 6.1 X10'3 (4.5-11.0)
[2021-11-08] MEDS: sevelamer carbonate 0.8gm powder pkt PEG SCH ×4 (02:20→20:24)
[2021-11-08 02:27] LABS: D-DIMER 1.18 MG/L FEU (0-0.50)
[2021-11-08 02:29] LABS: ALBUMIN 3.2 G/DL (3.4-5.0); ANION GAP 7 (8-16); BLOOD UREA NITROGEN 11 MG/DL (7-18); BUN/CREATININE RATIO 47.8 (5.4-32.0); C-REACTIVE PROTEIN 0.48 MG/DL (0.0-0.5); CALCIUM 9.8 MG/DL (8.5-10.1); CHLORIDE 101 MMOL/L (99-107); CREATININE 0.23 MG/DL (0.60-1.10); GLUCOSE 80 MG/DL (70-104); LACTATE DEHYDROGENASE 150 U/L (85-227); POTASSIUM 3.7 MMOL/L (3.5-5.1); SODIUM 141 MMOL/L (135-145); TOTAL CARBON DIOXIDE 33.1 MMOL/L (24-32); eGFR > 90 ML/MIN
[2021-11-08] MEDS ORDERED: gabapentin 400mg capsule PO ONE ×2 (06:00→14:05)
--- NOTE | 2021-11-08 06:15 | NUR ---
BEDSIDE REPORT GIVEN TO LUIS BOWEN. PLAN OF CARE REVIEWED, QUESTIONS ANSWERED.
--- NOTE | 2021-11-08 06:31 | NUR ---
Patient in room CICU 2008. I have received report from Elsa BOWEN and had the opportunity to ask questions and assume patient care.
[2021-11-08] MEDS: gabapentin 100mg capsule PEG SCH ×2 (07:57→15:30)
[2021-11-08] MEDS: ferrous sulfate 300mg/5ml UD oral liquid PEG SCH (07:57)
[2021-11-08] MEDS: lactobacillus rhamnosus 10,000 MMU CELLS/CAPSULE PEG SCH ×2 (07:57→20:24)
[2021-11-08] MEDS: docusate sodium 100mg/10ml UD cup PEG SCH (07:57)
[2021-11-08] MEDS: zinc sulfate 220mg capsule PEG SCH ×3 (07:57→20:24)
[2021-11-08] MEDS: loratadine 10mg tablet PO SCH (07:57)
[2021-11-08] MEDS: MULTIVIT-MIN/FERROUS GLUCONATE 9 MG/15 ML LIQUID PEG SCH (07:57)
[2021-11-08] MEDS: lansoprazole 15mg solutab PEG SCH (07:58)
[2021-11-08] MEDS: cloNIDine 0.1 mg tablet PEG SCH ×2 (07:58→15:30)
[2021-11-08] MEDS: metoprolol tartrate 25mg tablet PO SCH ×2 (07:58→20:24)
[2021-11-08] MEDS: polyethylene glycol 3350 17gm powd pack PO SCH (08:00)
[2021-11-08] MEDS: nystatin 15 GM powder TP SCH ×3 (08:00→21:23)
[2021-11-08] MEDS: enoxaparin 40mg/0.4ml syringe SQ SCH ×2 (08:00→20:00)
[2021-11-08] MEDS: insulin regular, human U-100 3ml vial - multi-dose SQ SCH ×3 (08:20→20:42)
--- NOTE | 2021-11-08 12:17 | NUR ---
Pt's left UA PICC line DC'd and removed. Pt tolerated well, IV catheter tip intact. Removal site covered with 4x4 and wrapped with coban. Will continue to monitor site as needed.
[2021-11-08] MEDS: fentaNYL 25MCG/hour patch.TD72 TD SCH (13:39)
[2021-11-08] MEDS ORDERED: cefazolin/dext.iso 2gm/50ml 50 ML IV ONE (14:05)
[2021-11-08] MEDS ORDERED: dextrose 50%-water 50ml dispensing syringe IV PRN (14:05)
[2021-11-08] MEDS ORDERED: Insulin Reg/NS 100units/100mL 100 ML IV SCH (14:05)
[2021-11-08] MEDS ORDERED: MESSAGE TO NURSING PO ONE (14:05)
[2021-11-08] MEDS ORDERED: insulin glargine (Lantus) pen - multi-dose SQ PRN (14:05)
[2021-11-08] MEDS ORDERED: MESSAGE TO PHARMACY IJ ONE (14:05)
[2021-11-08 15:55] LABS: CLARITY,URINE CLEAR (Clear); GLUCOSE, URINE NEGATIVE (Neg); KETONES,URINE NEGATIVE (Neg); LEUKOCYTE ESTERASE ,URINE NEGATIVE (Neg); NITRITES, URINE NEGATIVE (Neg); OCCULT BLOOD,URINE NEGATIVE (Neg); PROTEIN,URINE NEGATIVE (Neg); UROBILINOGEN,URINE 0.2 E.U/dL (0.2-1.0)
[2021-11-08 15:56] LABS: COLOR,URINE STRAW (Yellow); UA COLLECTION TYPE CLN CATCH MIDSTREAM
--- NOTE | 2021-11-08 18:15 | NUR ---
Problems reprioritized. Patient report given, questions answered & plan of care reviewed with Karthik BOWEN.
[2021-11-08] MEDS: mupirocin 2% nasal ointment 1gm UD NS SCH (20:00)
[2021-11-08] MEDS: sennosides 8.6mg tablet PO SCH (20:24)
[2021-11-08] MEDS: LORazepam 1 MG tablet PO PRN (23:38)
[2021-11-09] VITALS (29 sets, daily range): BP systolic 97–147; BP diastolic 48–84
[2021-11-09] MEDS: gabapentin 100mg capsule PEG SCH ×3 (00:12→15:54)
[2021-11-09] MEDS: cloNIDine 0.1 mg tablet PEG SCH ×3 (00:12→15:54)
[2021-11-09] MEDS: sevelamer carbonate 0.8gm powder pkt PEG SCH ×4 (02:00→20:00)
[2021-11-09 03:04] LABS: BASOPHILS % (AUTO) 0.5 % (0-1); EOSINOPHILS # (AUTO) 0.3 X10'3 (0-0.9); EOSINOPHILS % (AUTO) 4.1 % (0-6); HEMATOCRIT 31.5 % (42.0-52.0); LYMPHOCYTES # (AUTO) 1.7 X10'3 (1.1-4.8); LYMPHOCYTES % (AUTO) 22.7 % (21-51); MEAN CORPUSCULAR HEMOGLOBIN 26.1 PG (27.0-31.0); MEAN CORPUSCULAR HGB CONC 31.8 g/dL (33.0-36.5); MEAN CORPUSCULAR VOLUME 82.1 FL (78-98); MEAN PLATELET VOLUME 8.7 FL (7.4-10.4); MONOCYTES # (AUTO) 0.7 X10'3 (0-0.9); MONOCYTES % (AUTO) 8.6 % (2-12); NEUTROPHILS # (AUTO) 4.9 X10'3 (1.8-7.7); NEUTROPHILS % (AUTO) 64.1 % (42-75); PLATELET COUNT 342 X10'3 (140-440); RED BLOOD COUNT 3.83 X10'6 (4.70-6.10); RED CELL DISTRIBUTION WIDTH 17.5 % (11.5-14.5); WHITE BLOOD COUNT 7.7 X10'3 (4.5-11.0)
[2021-11-09 03:24] LABS: APTT 25 SECONDS (22-32); D-DIMER 1.42 MG/L FEU (0-0.50)
[2021-11-09 03:29] LABS: ALANINE AMINOTRANSFERASE 18 U/L (12-78); ALBUMIN 3.2 G/DL (3.4-5.0); ALBUMIN/GLOBULIN RATIO 0.8 (1.1-1.5); ALKALINE PHOSPHATASE 98 IU/L (46-116); ANION GAP 6 (8-16); ASPARTATE AMINO TRANSFERASE 13 U/L (10-37); BILIRUBIN,TOTAL 0.3 MG/DL (0.1-1.0); BLOOD UREA NITROGEN 11 MG/DL (7-18); BUN/CREATININE RATIO 52.4 (5.4-32.0); C-REACTIVE PROTEIN 0.23 MG/DL (0.0-0.5); CALCIUM 9.5 MG/DL (8.5-10.1); CHLORIDE 104 MMOL/L (99-107); CREATININE 0.21 MG/DL (0.60-1.10); GLUCOSE 105 MG/DL (70-104); LACTATE DEHYDROGENASE 156 U/L (85-227); POTASSIUM 3.8 MMOL/L (3.5-5.1); SODIUM 140 MMOL/L (135-145); TOTAL CARBON DIOXIDE 29.9 MMOL/L (24-32); TOTAL PROTEIN 7.3 G/DL (6.4-8.2); eGFR > 90 ML/MIN
[2021-11-09] MEDS ORDERED: gabapentin 400mg capsule PO ONE (06:00)
[2021-11-09] MEDS: Insulin Reg/NS 100units/100mL 100 ML IV SCH (06:00)
[2021-11-09] MEDS ORDERED: cefazolin/dext.iso 2gm/50ml 50 ML IV ONE (06:00)
[2021-11-09] MEDS: enoxaparin 40mg/0.4ml syringe SQ SCH ×2 (08:00→20:57)
[2021-11-09] MEDS: lactobacillus rhamnosus 10,000 MMU CELLS/CAPSULE PEG SCH ×2 (08:26→20:55)
[2021-11-09] MEDS: zinc sulfate 220mg capsule PEG SCH ×3 (08:27→20:55)
[2021-11-09] MEDS: lansoprazole 15mg solutab PEG SCH (08:27)
[2021-11-09] MEDS: ferrous sulfate 300mg/5ml UD oral liquid PEG SCH (08:27)
[2021-11-09] MEDS: MULTIVIT-MIN/FERROUS GLUCONATE 9 MG/15 ML LIQUID PEG SCH (08:27)
[2021-11-09] MEDS: loratadine 10mg tablet PO SCH (08:27)
[2021-11-09] MEDS: polyethylene glycol 3350 17gm powd pack PO SCH (08:27)
[2021-11-09] MEDS: metoprolol tartrate 25mg tablet PO SCH ×2 (08:27→20:55)
[2021-11-09] MEDS: proCHLORperazine 10 MG/2 ml inj IV PRN (08:28)
[2021-11-09] MEDS: mupirocin 2% nasal ointment 1gm UD NS SCH ×2 (08:28→21:03)
[2021-11-09] MEDS: docusate sodium 100mg/10ml UD cup PEG SCH (08:29)
[2021-11-09] MEDS: nystatin 15 GM powder TP SCH ×3 (08:30→21:00)
[2021-11-09] MEDS ORDERED: MESSAGE TO NURSING PO ONE (10:00)
[2021-11-09] MEDS ORDERED: gabapentin 400mg capsule PO PRN (10:45)
--- NOTE | 2021-11-09 11:25 | NUR ---
Reassessment: Overall PO intake remains poor with 25-50% and 0% PO intake of meals. Pt reportedly dislikes the pureed food and fish per RN. MD approved advancing diet to mechanical soft chopped (SB6), though PO remains 25-50% of first two meals with texture upgrade. Pending documentation of PO intake for today. Patient's estimated nutrient needs continue to be met with TF at goal rate of which pt is tolerating. May consider reducing TF rate versus changing to nocturnal TF to improve appetite, to d/w MD. LBM 11/07. Noted patient's new A1c is 4.8%, down from 10.1% on admit, MD aware. Will continue to follow and make recommendations as appropriate. Recommendations: 1) Continue mechanical soft chop all (SB6) diet, no fish; encourage PO intake 2) Continuous Vital AF with goal rate of 85 mL/hr to provide 2040 mL total volume/day, 2448 kcal, 153 g protein, and 1654 mL water 3) Continue with TF until pt consistently with adequate PO intake; monitor need to adjust TF recs; consider changing to nocturnal TF to optimize PO intake 4) Additional 200 mL flush Q4H per MD; monitor serum Na 5) Continue routine MVM with Iron and Zinc per MD 6) Routine Phos binder per MD 7) Prealbumin q Thursday/ 8) Daily scaled weights 9) Routine bowel care; utilize PRN bowel care 10) Monitor need for DM education with official DM dx by physician; A1c 10.1% with no PMH DM in EMR on admit; updated A1c 4.8% 11/06 Addendum: 11/09/21 at [address] Amended: Links added.
[2021-11-09] MEDS ORDERED: midazolam 1 mg/ML 2ml injection ONE (11:58)
[2021-11-09] MEDS ORDERED: rocuronium 10mg/ml inj IV ONE ×2 (11:58→12:03)
[2021-11-09] MEDS ORDERED: propofol inj 20 ML IV ONE (11:58)
[2021-11-09] MEDS ORDERED: fentaNYL /PF 50mcg/ml 5ml ampule ONE (11:58)
[2021-11-09] MEDS ORDERED: sevoflurane 250ml liquid IH ONE (12:03)
[2021-11-09] MEDS ORDERED: BUPIVAcaine 0.5% inj/PF 30 ml vial IJ ONE (13:10)
[2021-11-09] MEDS ORDERED: TALC 4 GM VIAL ***intrapleural administration only IX ONE (13:11)
[2021-11-09] MEDS ORDERED: metoclopramide 5 mg/ml inj IV PRN (13:40)
[2021-11-09] MEDS ORDERED: albuterol 2.5 MG/3 ML nebule NEB PRN (13:40)
[2021-11-09] MEDS ORDERED: ondansetron/PF 4mg/2ml inj IV PRN ×2 (13:40→14:25)
[2021-11-09] MEDS ORDERED: dexamethasone sod phosphate 4mg/ml inj. ONE (13:44)
[2021-11-09] MEDS ORDERED: neostigmine methylsulfate 1 MG/ML 10ml vial ONE (13:44)
[2021-11-09] MEDS ORDERED: glycopyrrolate 0.2mg/ml inj ONE (13:44)
[2021-11-09] MEDS ORDERED: sugammadex 200mg/2ml injection IV ONE (13:45)
--- NOTE | 2021-11-09 13:52 | NUR ---
Received from OR via BED, accompanied by Anesthesiologist DR. ALONZO and report given by Anesthesiologist AND OR NURSE. PT ARRIVED AWAKE WITH 02 TO TRACH AT 10L. RIGHT CHEST TUBE INTACT AND CONNECTED TO SUCTION. RIGHT HIP SCAB NOTED. PAIN NOTED AT 10 AND PT MEDICATED BY ANESTHESIOLOGIST. PT DENIES NAUSEA. VSS. NEURO CHECKS WITHIN NORMAL LIMITS. M[place]IG[place]. BILATERAL PEDAL AND RADIAL PULSES STRONG AND PALPABLE. BILATERAL BOOTS ON. ART LINE IN LEFT WRIST. IV IN RIGHT UPPER ARM WITH LR RUNNING. WILL CONTINUE TO MONITOR. Addendum: 11/09/21 at 1415 by Sulema Marmolejo RN Amended: Links added. Addendum: 11/09/21 at 1418 by Sulema Marmolejo RN PEG TUBE NOTED TO LEFT UPPER ABD.
[2021-11-09] MEDS ORDERED: morphine 4 MG/ML inj SYRINge IV PRN (14:25)
[2021-11-09] MEDS ORDERED: morphine 2 MG/ML inj. syringe IV PRN (14:25)
[2021-11-09] MEDS ORDERED: meperidine/PF 25mg/ml syringe IV PRN ×3 (14:25)
[2021-11-09] MEDS ORDERED: proCHLORperazine 10 MG/2 ml inj IV PRN (14:25)
[2021-11-09] MEDS ORDERED: ringers solution, lacted 1,000 ML IV SCH (14:25)
--- NOTE | 2021-11-09 14:52 | NUR ---
Report called to receiving nurse ANDRÉS KWNOG. Transferred via BED ON MONITOR AND O2 BACK TO CICU ROOM 2008. Belongings IN PT ROOM. Special Issues communicated to receiving nurse. PT HAS MET DISCHARGE FOR RECOVERY ROOM. MEDICATED FOR PAIN PER EMARoyal AND SAW SOME IMPROVEMENTS. VSS. NURSE AT BEDSIDE TO ASSUME CARE. Addendum: 11/09/21 at 1510 by Sulema Marmolejo RN Amended: Links added.
[2021-11-09] MEDS: ceFAZolin inj. 1,000 MG in dextrose 5%-water 50ml 50 ML IV SCH (15:55)
[2021-11-09 15:59] LABS: BASOPHILS % (AUTO) 0.4 % (0-1); EOSINOPHILS # (AUTO) 0.1 X10'3 (0-0.9); EOSINOPHILS % (AUTO) 0.9 % (0-6); HEMATOCRIT 33.3 % (42.0-52.0); HEMOGLOBIN 10.8 g/dl (14.0-17.9); LYMPHOCYTES # (AUTO) 0.7 X10'3 (1.1-4.8); LYMPHOCYTES % (AUTO) 5.8 % (21-51); MEAN CORPUSCULAR HEMOGLOBIN 26.9 PG (27.0-31.0); MEAN CORPUSCULAR HGB CONC 32.4 g/dL (33.0-36.5); MEAN CORPUSCULAR VOLUME 83.1 FL (78-98); MEAN PLATELET VOLUME 8.3 FL (7.4-10.4); MONOCYTES # (AUTO) 0.2 X10'3 (0-0.9); MONOCYTES % (AUTO) 1.6 % (2-12); NEUTROPHILS # (AUTO) 11.8 X10'3 (1.8-7.7); NEUTROPHILS % (AUTO) 91.3 % (42-75); PLATELET COUNT 317 X10'3 (140-440); RED BLOOD COUNT 4.01 X10'6 (4.70-6.10); RED CELL DISTRIBUTION WIDTH 17.7 % (11.5-14.5); WHITE BLOOD COUNT 12.9 X10'3 (4.5-11.0)
[2021-11-09 16:06] LABS: ALBUMIN 3.3 G/DL (3.4-5.0); ANION GAP 6 (8-16); BLOOD UREA NITROGEN 10 MG/DL (7-18); BUN/CREATININE RATIO 33.3 (5.4-32.0); CALCIUM 9.8 MG/DL (8.5-10.1); CHLORIDE 105 MMOL/L (99-107); GLUCOSE 156 MG/DL (70-104); POTASSIUM 4.3 MMOL/L (3.5-5.1); SODIUM 139 MMOL/L (135-145); TOTAL CARBON DIOXIDE 28.3 MMOL/L (24-32); eGFR > 90 ML/MIN
--- NOTE | 2021-11-09 18:48 | NUR ---
Patient was received from night nurse in a stable condition.Patient is scheduled for Video Assisted Thorascopic Surgery. Education on the nature of procedure given to patient and brother by the bed side, Surgical consent signed by brother.Patient wheeled out to OR at 12:00pm
--- NOTE | 2021-11-09 18:54 | NUR ---
Patient wheeled in to the unit post op in a stable condition.Recovery nurse reported that surgery went well, no blood loss, patient was medicated with Demerol 25mg post op for pain. Chest Xray done.
--- NOTE | 2021-11-09 19:00 | NUR ---
Chest tube replaced with a new tube and chamber, 49ml drained.
[2021-11-09] MEDS ORDERED: gabapentin 300mg capsule PO SCH (20:00)
[2021-11-09] MEDS: sennosides 8.6mg tablet PO SCH (20:55)
[2021-11-10] VITALS (24 sets, daily range): BP systolic 103–140; BP diastolic 60–84
[2021-11-10] MEDS: gabapentin 100mg capsule PEG SCH ×3 (00:45→15:44)
[2021-11-10] MEDS: cloNIDine 0.1 mg tablet PEG SCH ×3 (00:45→15:44)
[2021-11-10] MEDS: ceFAZolin inj. 1,000 MG in dextrose 5%-water 50ml 50 ML IV SCH (00:46)
[2021-11-10] MEDS: oxyCODONE IR 5mg (immed. release) tablet PEG PRN ×2 (01:59→05:53)
[2021-11-10] MEDS: sevelamer carbonate 0.8gm powder pkt PEG SCH ×4 (02:00→22:01)
[2021-11-10 03:04] LABS: BASOPHILS # (AUTO) 0.1 X10'3 (0-0.2); BASOPHILS % (AUTO) 0.5 % (0-1); EOSINOPHILS % (AUTO) 0 % (0-6); HEMATOCRIT 34.2 % (42.0-52.0); LYMPHOCYTES # (AUTO) 1.4 X10'3 (1.1-4.8); LYMPHOCYTES % (AUTO) 9.9 % (21-51); MEAN CORPUSCULAR HEMOGLOBIN 26.2 PG (27.0-31.0); MEAN CORPUSCULAR VOLUME 81.8 FL (78-98); MEAN PLATELET VOLUME 8.4 FL (7.4-10.4); MONOCYTES # (AUTO) 1.2 X10'3 (0-0.9); MONOCYTES % (AUTO) 8.4 % (2-12); NEUTROPHILS # (AUTO) 11.2 X10'3 (1.8-7.7); NEUTROPHILS % (AUTO) 81.2 % (42-75); PLATELET COUNT 399 X10'3 (140-440); RED BLOOD COUNT 4.18 X10'6 (4.70-6.10); RED CELL DISTRIBUTION WIDTH 17.8 % (11.5-14.5); WHITE BLOOD COUNT 13.8 X10'3 (4.5-11.0)
[2021-11-10 03:07] LABS: D-DIMER 0.97 MG/L FEU (0-0.50)
[2021-11-10 03:21] LABS: ALANINE AMINOTRANSFERASE 20 U/L (12-78); ALBUMIN 3.1 G/DL (3.4-5.0); ALBUMIN/GLOBULIN RATIO 0.7 (1.1-1.5); ALKALINE PHOSPHATASE 105 IU/L (46-116); ANION GAP 13 (8-16); ASPARTATE AMINO TRANSFERASE 10 U/L (10-37); BILIRUBIN,TOTAL 0.3 MG/DL (0.1-1.0); BLOOD UREA NITROGEN 12 MG/DL (7-18); BUN/CREATININE RATIO 33.3 (5.4-32.0); CALCIUM 9.7 MG/DL (8.5-10.1); CHLORIDE 99 MMOL/L (99-107); CREATININE 0.36 MG/DL (0.60-1.10); GLUCOSE 162 MG/DL (70-104); LACTATE DEHYDROGENASE 149 U/L (85-227); MAGNESIUM 1.8 MG/DL (1.5-2.4); PHOSPHORUS 4.2 MG/DL (2.3-4.5); POTASSIUM 3.8 MMOL/L (3.5-5.1); SODIUM 139 MMOL/L (135-145); TOTAL CARBON DIOXIDE 26.6 MMOL/L (24-32); TOTAL PROTEIN 7.5 G/DL (6.4-8.2); eGFR > 90 ML/MIN
[2021-11-10] MEDS: lansoprazole 15mg solutab PEG SCH (07:30)
[2021-11-10] MEDS: mupirocin 2% nasal ointment 1gm UD NS SCH (08:59)
[2021-11-10] MEDS: nystatin 15 GM powder TP SCH ×3 (08:59→22:03)
[2021-11-10] MEDS: MULTIVIT-MIN/FERROUS GLUCONATE 9 MG/15 ML LIQUID PEG SCH (09:00)
[2021-11-10] MEDS: docusate sodium 100mg/10ml UD cup PEG SCH (09:00)
[2021-11-10] MEDS: ferrous sulfate 300mg/5ml UD oral liquid PEG SCH (09:00)
[2021-11-10] MEDS: ondansetron/PF 4mg/2ml inj IV PRN (09:00)
[2021-11-10] MEDS: loratadine 10mg tablet PO SCH (09:02)
[2021-11-10] MEDS: lactobacillus rhamnosus 10,000 MMU CELLS/CAPSULE PEG SCH ×2 (09:02→22:01)
[2021-11-10] MEDS: zinc sulfate 220mg capsule PEG SCH ×3 (09:02→22:01)
[2021-11-10] MEDS: LORazepam 1 MG tablet PO PRN (09:02)
[2021-11-10] MEDS: polyethylene glycol 3350 17gm powd pack PO SCH (09:03)
[2021-11-10] MEDS: metoprolol tartrate 25mg tablet PO SCH ×2 (09:03→22:02)
[2021-11-10] MEDS: enoxaparin 40mg/0.4ml syringe SQ SCH ×2 (09:04→22:00)
[2021-11-10] MEDS: Insulin Reg/NS 100units/100mL 100 ML IV SCH (15:20)
[2021-11-10] MEDS: sennosides 8.6mg tablet PO SCH (22:01)
[2021-11-10] MEDS: insulin regular, human U-100 3ml vial - multi-dose SQ SCH (22:23)
--- NOTE | 2021-11-10 23:07 | NUR ---
Patient in room CICU 2008. I have received report from ANDRÉS Panda and had the opportunity to ask questions and assume patient care. Patient is awake and appropriate, watching TV, I will continue to monitor.
--- NOTE | 2021-11-10 23:30 | NUR ---
Patient report given, questions answered & plan of care reviewed with, Monse BOWEN
[2021-11-11] VITALS (23 sets, daily range): BP systolic 98–120; BP diastolic 56–74
[2021-11-11] MEDS: gabapentin 100mg capsule PEG SCH ×4 (00:07→23:07)
[2021-11-11] MEDS: cloNIDine 0.1 mg tablet PEG SCH ×4 (00:09→23:03)
[2021-11-11] MEDS: sevelamer carbonate 0.8gm powder pkt PEG SCH ×4 (02:00→20:50)
[2021-11-11] MEDS: insulin regular, human U-100 3ml vial - multi-dose SQ SCH ×2 (03:07→22:55)
[2021-11-11 03:27] LABS: BASOPHILS % (AUTO) 0.2 % (0-1); EOSINOPHILS # (AUTO) 0.1 X10'3 (0-0.9); EOSINOPHILS % (AUTO) 0.5 % (0-6); HEMATOCRIT 31.2 % (42.0-52.0); HEMOGLOBIN 9.9 g/dl (14.0-17.9); LYMPHOCYTES # (AUTO) 1.4 X10'3 (1.1-4.8); LYMPHOCYTES % (AUTO) 11.5 % (21-51); MEAN CORPUSCULAR HGB CONC 31.7 g/dL (33.0-36.5); MEAN CORPUSCULAR VOLUME 81.9 FL (78-98); MEAN PLATELET VOLUME 8.3 FL (7.4-10.4); MONOCYTES % (AUTO) 8.8 % (2-12); NEUTROPHILS # (AUTO) 9.4 X10'3 (1.8-7.7); PLATELET COUNT 353 X10'3 (140-440); RED BLOOD COUNT 3.81 X10'6 (4.70-6.10); RED CELL DISTRIBUTION WIDTH 18.2 % (11.5-14.5)
[2021-11-11 03:40] LABS: D-DIMER 1.09 MG/L FEU (0-0.50)
[2021-11-11 03:48] LABS: ALBUMIN 2.8 G/DL (3.4-5.0); ANION GAP 8 (8-16); BLOOD UREA NITROGEN 10 MG/DL (7-18); BUN/CREATININE RATIO 34.5 (5.4-32.0); CALCIUM 9.2 MG/DL (8.5-10.1); CHLORIDE 99 MMOL/L (99-107); CREATININE 0.29 MG/DL (0.60-1.10); GLUCOSE 167 MG/DL (70-104); LACTATE DEHYDROGENASE 125 U/L (85-227); MAGNESIUM 1.8 MG/DL (1.5-2.4); PHOSPHORUS 3.2 MG/DL (2.3-4.5); POTASSIUM 3.6 MMOL/L (3.5-5.1); SODIUM 137 MMOL/L (135-145); TOTAL CARBON DIOXIDE 29.6 MMOL/L (24-32); eGFR > 90 ML/MIN
[2021-11-11] MEDS: nystatin 15 GM powder TP SCH ×3 (07:57→20:50)
[2021-11-11] MEDS: docusate sodium 100mg/10ml UD cup PEG SCH (07:58)
[2021-11-11] MEDS: metoprolol tartrate 25mg tablet PO SCH ×2 (07:58→20:50)
[2021-11-11] MEDS: MULTIVIT-MIN/FERROUS GLUCONATE 9 MG/15 ML LIQUID PEG SCH (07:58)
[2021-11-11] MEDS: ferrous sulfate 300mg/5ml UD oral liquid PEG SCH (07:58)
[2021-11-11] MEDS: polyethylene glycol 3350 17gm powd pack PO SCH (07:58)
[2021-11-11] MEDS: enoxaparin 40mg/0.4ml syringe SQ SCH ×2 (07:59→20:49)
[2021-11-11] MEDS: lansoprazole 15mg solutab PEG SCH (07:59)
[2021-11-11] MEDS: zinc sulfate 220mg capsule PEG SCH ×3 (07:59→20:49)
[2021-11-11] MEDS: lactobacillus rhamnosus 10,000 MMU CELLS/CAPSULE PEG SCH ×2 (07:59→20:50)
[2021-11-11] MEDS: oxyCODONE IR 5mg (immed. release) tablet PEG PRN (07:59)
[2021-11-11] MEDS: LORazepam 1 MG tablet PO PRN ×2 (07:59→20:49)
[2021-11-11] MEDS: loratadine 10mg tablet PO SCH (08:09)
[2021-11-11] MEDS: ondansetron/PF 4mg/2ml inj IV PRN (08:33)
[2021-11-11] MEDS: fentaNYL 25MCG/hour patch.TD72 TD SCH (14:29)
[2021-11-11 14:55] LABS: ALBUMIN 2.6 G/DL (3.4-5.0); ANION GAP 10 (8-16); BLOOD UREA NITROGEN 9 MG/DL (7-18); BUN/CREATININE RATIO 34.6 (5.4-32.0); C-REACTIVE PROTEIN 16.48 MG/DL (0.0-0.5); CALCIUM 8.9 MG/DL (8.5-10.1); CHLORIDE 99 MMOL/L (99-107); CREATININE 0.26 MG/DL (0.60-1.10); GLUCOSE 172 MG/DL (70-104); POTASSIUM 3.8 MMOL/L (3.5-5.1); SODIUM 137 MMOL/L (135-145); TOTAL CARBON DIOXIDE 28.1 MMOL/L (24-32); eGFR > 90 ML/MIN
[2021-11-11] MEDS: QUEtiapine 25mg tablet PO PRN (20:49)
[2021-11-11] MEDS: sennosides 8.6mg tablet PO SCH (20:49)
[2021-11-12] VITALS (24 sets, daily range): BP systolic 88–129; BP diastolic 54–82
[2021-11-12] MEDS: Insulin Reg/NS 100units/100mL 100 ML IV SCH (00:40)
[2021-11-12] MEDS: sevelamer carbonate 0.8gm powder pkt PEG SCH ×4 (01:59→21:35)
[2021-11-12] MEDS: insulin regular, human U-100 3ml vial - multi-dose SQ SCH ×2 (02:59→21:33)
[2021-11-12 06:02] LABS: BASOPHILS % (AUTO) 0.3 % (0-1); EOSINOPHILS # (AUTO) 0.3 X10'3 (0-0.9); EOSINOPHILS % (AUTO) 3.5 % (0-6); HEMATOCRIT 28.7 % (42.0-52.0); HEMOGLOBIN 9.5 g/dl (14.0-17.9); LYMPHOCYTES # (AUTO) 1.4 X10'3 (1.1-4.8); LYMPHOCYTES % (AUTO) 17.6 % (21-51); MEAN CORPUSCULAR HEMOGLOBIN 27.4 PG (27.0-31.0); MEAN CORPUSCULAR HGB CONC 33.1 g/dL (33.0-36.5); MEAN CORPUSCULAR VOLUME 82.8 FL (78-98); MEAN PLATELET VOLUME 8.4 FL (7.4-10.4); MONOCYTES # (AUTO) 0.8 X10'3 (0-0.9); MONOCYTES % (AUTO) 9.7 % (2-12); NEUTROPHILS # (AUTO) 5.5 X10'3 (1.8-7.7); NEUTROPHILS % (AUTO) 68.9 % (42-75); PLATELET COUNT 333 X10'3 (140-440); RED BLOOD COUNT 3.46 X10'6 (4.70-6.10); RED CELL DISTRIBUTION WIDTH 17.5 % (11.5-14.5); WHITE BLOOD COUNT 7.9 X10'3 (4.5-11.0)
--- NOTE | 2021-11-12 06:08 | NUR ---
Patient report given, questions answered & plan of care reviewed withAishwarya RN
[2021-11-12 06:09] LABS: D-DIMER 1.08 MG/L FEU (0-0.50)
[2021-11-12 06:10] LABS: ALANINE AMINOTRANSFERASE 12 U/L (12-78); ALBUMIN 2.7 G/DL (3.4-5.0); ALBUMIN/GLOBULIN RATIO 0.6 (1.1-1.5); ALKALINE PHOSPHATASE 86 IU/L (46-116); ANION GAP 7 (8-16); ASPARTATE AMINO TRANSFERASE 8 U/L (10-37); BILIRUBIN,TOTAL 0.3 MG/DL (0.1-1.0); BLOOD UREA NITROGEN 9 MG/DL (7-18); CALCIUM 9.1 MG/DL (8.5-10.1); CHLORIDE 102 MMOL/L (99-107); GLUCOSE 120 MG/DL (70-104); LACTATE DEHYDROGENASE 115 U/L (85-227); SODIUM 141 MMOL/L (135-145); TOTAL PROTEIN 7.2 G/DL (6.4-8.2); eGFR > 90 ML/MIN
[2021-11-12] MEDS: ferrous sulfate 300mg/5ml UD oral liquid PEG SCH (07:27)
[2021-11-12] MEDS: lactobacillus rhamnosus 10,000 MMU CELLS/CAPSULE PEG SCH ×2 (07:28→21:36)
[2021-11-12] MEDS: cloNIDine 0.1 mg tablet PEG SCH ×2 (07:28→16:16)
[2021-11-12] MEDS: docusate sodium 100mg/10ml UD cup PEG SCH (07:28)
[2021-11-12] MEDS: ondansetron/PF 4mg/2ml inj IV PRN (07:28)
[2021-11-12] MEDS: gabapentin 100mg capsule PEG SCH ×2 (07:28→16:16)
[2021-11-12] MEDS: MULTIVIT-MIN/FERROUS GLUCONATE 9 MG/15 ML LIQUID PEG SCH (07:28)
[2021-11-12] MEDS: zinc sulfate 220mg capsule PEG SCH ×3 (07:28→21:36)
[2021-11-12] MEDS: polyethylene glycol 3350 17gm powd pack PO SCH (07:28)
[2021-11-12] MEDS: loratadine 10mg tablet PO SCH (07:29)
[2021-11-12] MEDS: enoxaparin 40mg/0.4ml syringe SQ SCH ×2 (07:29→21:35)
[2021-11-12] MEDS: metoprolol tartrate 25mg tablet PO SCH ×2 (07:29→21:36)
[2021-11-12] MEDS: lansoprazole 15mg solutab PEG SCH (07:29)
[2021-11-12] MEDS: oxyCODONE IR 5mg (immed. release) tablet PEG PRN (07:35)
[2021-11-12] MEDS: nystatin 15 GM powder TP SCH ×3 (07:35→21:36)
[2021-11-12 13:38] LABS: ALBUMIN 2.7 G/DL (3.4-5.0); ANION GAP 9 (8-16); BLOOD UREA NITROGEN 10 MG/DL (7-18); C-REACTIVE PROTEIN 13.54 MG/DL (0.0-0.5); CALCIUM 9.2 MG/DL (8.5-10.1); CHLORIDE 99 MMOL/L (99-107); CREATININE 0.27 MG/DL (0.60-1.10); GLUCOSE 157 MG/DL (70-104); POTASSIUM 4.2 MMOL/L (3.5-5.1); SODIUM 139 MMOL/L (135-145); eGFR > 90 ML/MIN
[2021-11-12] MEDS: sennosides/docusate sodium tablet PEG SCH (20:00)
[2021-11-12] MEDS: LORazepam 1 MG tablet PO PRN (21:35)
[2021-11-12] MEDS: QUEtiapine 25mg tablet PO PRN (21:35)
[2021-11-13] VITALS (24 sets, daily range): BP systolic 98–131; BP diastolic 59–88
[2021-11-13] MEDS: cloNIDine 0.1 mg tablet PEG SCH ×3 (00:08→14:52)
[2021-11-13] MEDS: gabapentin 100mg capsule PEG SCH ×3 (00:09→16:05)
[2021-11-13] MEDS: insulin regular, human U-100 3ml vial - multi-dose SQ SCH ×3 (02:21→14:29)
[2021-11-13] MEDS: sevelamer carbonate 0.8gm powder pkt PEG SCH ×4 (02:21→19:50)
[2021-11-13] MEDS: oxyCODONE IR 5mg (immed. release) tablet PEG PRN (02:29)
--- NOTE | 2021-11-13 06:14 | NUR ---
Patient report given, questions answered & plan of care reviewed with, Bartolome BOWEN
[2021-11-13 06:19] LABS: ALANINE AMINOTRANSFERASE 12 U/L (12-78); ALBUMIN 2.7 G/DL (3.4-5.0); ALBUMIN/GLOBULIN RATIO 0.6 (1.1-1.5); ALKALINE PHOSPHATASE 93 IU/L (46-116); ANION GAP 6 (8-16); ASPARTATE AMINO TRANSFERASE 9 U/L (10-37); BILIRUBIN,TOTAL 0.2 MG/DL (0.1-1.0); BLOOD UREA NITROGEN 11 MG/DL (7-18); BUN/CREATININE RATIO 64.7 (5.4-32.0); CALCIUM 9.2 MG/DL (8.5-10.1); CHLORIDE 104 MMOL/L (99-107); CREATININE 0.17 MG/DL (0.60-1.10); GLUCOSE 142 MG/DL (70-104); LACTATE DEHYDROGENASE 141 U/L (85-227); MAGNESIUM 2.1 MG/DL (1.5-2.4); PHOSPHORUS 5.6 MG/DL (2.3-4.5); POTASSIUM 4.4 MMOL/L (3.5-5.1); SODIUM 141 MMOL/L (135-145); TOTAL CARBON DIOXIDE 31.2 MMOL/L (24-32); TOTAL PROTEIN 7.1 G/DL (6.4-8.2); eGFR > 90 ML/MIN
[2021-11-13] MEDS: lansoprazole 15mg solutab PEG SCH (07:28)
[2021-11-13] MEDS: loratadine 10mg tablet PO SCH (07:28)
[2021-11-13] MEDS: ferrous sulfate 300mg/5ml UD oral liquid PEG SCH (07:28)
[2021-11-13] MEDS: metoprolol tartrate 25mg tablet PO SCH (07:28)
[2021-11-13] MEDS: sennosides/docusate sodium tablet PEG SCH ×2 (07:29→20:00)
[2021-11-13] MEDS: lactobacillus rhamnosus 10,000 MMU CELLS/CAPSULE PEG SCH ×2 (07:29→19:51)
[2021-11-13] MEDS: MULTIVIT-MIN/FERROUS GLUCONATE 9 MG/15 ML LIQUID PEG SCH (07:29)
[2021-11-13] MEDS: zinc sulfate 220mg capsule PEG SCH ×3 (07:29→21:00)
[2021-11-13] MEDS: enoxaparin 40mg/0.4ml syringe SQ SCH ×2 (07:30→19:50)
[2021-11-13] MEDS: nystatin 15 GM powder TP SCH ×3 (07:30→19:51)
[2021-11-13] MEDS: polyethylene glycol 3350 17gm powd pack PO SCH (07:31)
[2021-11-13] MEDS: ondansetron/PF 4mg/2ml inj IV PRN (07:38)
[2021-11-13 07:41] LABS: BASOPHILS % (AUTO) 0.8 % (0-1); EOSINOPHILS # (AUTO) 0.4 X10'3 (0-0.9); EOSINOPHILS % (AUTO) 7.2 % (0-6); HEMOGLOBIN 9.5 g/dl (14.0-17.9); LYMPHOCYTES # (AUTO) 1.2 X10'3 (1.1-4.8); LYMPHOCYTES % (AUTO) 22.3 % (21-51); MEAN CORPUSCULAR HEMOGLOBIN 26.9 PG (27.0-31.0); MEAN CORPUSCULAR HGB CONC 32.8 g/dL (33.0-36.5); MEAN CORPUSCULAR VOLUME 82.1 FL (78-98); MEAN PLATELET VOLUME 8.5 FL (7.4-10.4); MONOCYTES # (AUTO) 0.5 X10'3 (0-0.9); MONOCYTES % (AUTO) 9.5 % (2-12); NEUTROPHILS # (AUTO) 3.4 X10'3 (1.8-7.7); NEUTROPHILS % (AUTO) 60.2 % (42-75); PLATELET COUNT 329 X10'3 (140-440); RED BLOOD COUNT 3.53 X10'6 (4.70-6.10); RED CELL DISTRIBUTION WIDTH 17.2 % (11.5-14.5); WHITE BLOOD COUNT 5.6 X10'3 (4.5-11.0)
[2021-11-13 07:52] LABS: D-DIMER 1.96 MG/L FEU (0-0.50)
[2021-11-13 08:46] LABS: C-REACTIVE PROTEIN 9.89 MG/DL (0.0-0.5)
--- NOTE | 2021-11-13 12:13 | NUR ---
Reassessment: Pt with 100% PO intake of breakfast 11/12 and today, however documented to have refused all additional meals since 11/10. Pt continues tolerating TF at goal rate with GRV WNL. D/w MD recommendation to decreased TF rate in hopes of improving appetite and increasing TF, MD agrees and suggests ONS to optimize PO intake. See updated TF recommendations below. Patient and brother seen at bedside. Pt reports low appetite though denies food preferences other than no coffee, d/w dietary. Pt states he likes fish just didn't like it when it was pureed, notified dietary that it's okay to send fish with current texture modification. Discussed ONS options, pt agreeable to try Ensure with meals. Per patient's brother, pt does not have any known food allergy or avoid any food d/t dislike. Pt and brother provided with ONS coupon and RD contact information and encouraged to reach out for questions/food preferences. LBM 11/12, receiving routine bowel care. Will continue to follow closely and make recommendations as appropriate. Recommendations: 1) Continue mechanical soft chop all (SB6) diet, no coffee; encourage PO intake 2) Vanilla Ensure Enlive BIDLD, pending physician approval to EMR 3) Continuous Glucerna 1.2 with goal rate of 50 mL/hr to provide 1200 mL total volume/day, 1440 kcal, 72 g protein, and 966 mL water. Will meet ~65% EEN and ~68% EPN 4) Continue with TF until pt consistently with adequate PO intake; monitor need to further adjust TF recs/change to nocturnal TF to optimize PO intake 5) Additional 200 mL flush Q4H per MD; monitor serum Na 6) Continue routine MVM with Iron and Zinc per MD 7) Routine Phos binder per MD 8) Prealbumin q Thursday/ 9) Daily scaled weights 10) Routine bowel care 11) Monitor need for DM education with official DM dx by physician; A1c 10.1% with no PMH DM in EMR on admit; updated A1c 4.8% 11/06 Addendum: 11/13/21 at [address] Amended: Links added.
[2021-11-13] MEDS: lactose-reduced food (Ensure Enlive) - 237ml bottle PO SCH ×2 (12:30→17:49)
[2021-11-13] MEDS ORDERED: QUEtiapine 25mg tablet PEG PRN (13:44)
[2021-11-13] MEDS ORDERED: gabapentin 400mg capsule PEG PRN (13:45)
[2021-11-13 13:53] LABS: ALBUMIN 3.1 G/DL (3.4-5.0); ANION GAP 7 (8-16); BLOOD UREA NITROGEN 13 MG/DL (7-18); BUN/CREATININE RATIO 59.1 (5.4-32.0); CALCIUM 9.5 MG/DL (8.5-10.1); CHLORIDE 100 MMOL/L (99-107); CREATININE 0.22 MG/DL (0.60-1.10); GLUCOSE 152 MG/DL (70-104); POTASSIUM 4.5 MMOL/L (3.5-5.1); SODIUM 137 MMOL/L (135-145); TOTAL CARBON DIOXIDE 30.3 MMOL/L (24-32); eGFR > 90 ML/MIN
[2021-11-13] MEDS: metoprolol tartrate 25mg tablet PEG SCH (19:51)
[2021-11-13] MEDS: LORazepam 1 MG tablet PO PRN (19:51)
[2021-11-14] VITALS (22 sets, daily range): BP systolic 110–135; BP diastolic 59–99
[2021-11-14] MEDS: sevelamer carbonate 0.8gm powder pkt PEG SCH ×4 (01:11→17:51)
[2021-11-14] MEDS: oxyCODONE IR 5mg (immed. release) tablet PEG PRN ×2 (01:51→20:04)
[2021-11-14 06:02] LABS: BASOPHILS % (AUTO) 0.7 % (0-1); D-DIMER 2.07 MG/L FEU (0-0.50); EOSINOPHILS # (AUTO) 0.3 X10'3 (0-0.9); EOSINOPHILS % (AUTO) 6.1 % (0-6); HEMATOCRIT 31.2 % (42.0-52.0); HEMOGLOBIN 10.2 g/dl (14.0-17.9); LYMPHOCYTES # (AUTO) 1.6 X10'3 (1.1-4.8); LYMPHOCYTES % (AUTO) 30.7 % (21-51); MEAN CORPUSCULAR HGB CONC 32.7 g/dL (33.0-36.5); MEAN CORPUSCULAR VOLUME 82.7 FL (78-98); MEAN PLATELET VOLUME 8.3 FL (7.4-10.4); MONOCYTES # (AUTO) 0.4 X10'3 (0-0.9); MONOCYTES % (AUTO) 7.5 % (2-12); NEUTROPHILS # (AUTO) 2.9 X10'3 (1.8-7.7); PLATELET COUNT 376 X10'3 (140-440); RED BLOOD COUNT 3.77 X10'6 (4.70-6.10); RED CELL DISTRIBUTION WIDTH 17.4 % (11.5-14.5); WHITE BLOOD COUNT 5.3 X10'3 (4.5-11.0)
--- NOTE | 2021-11-14 06:03 | NUR ---
Problems reprioritized. Patient report given, questions answered & plan of care reviewed with ANDRÉS Cruz
[2021-11-14 06:09] LABS: ALBUMIN 2.9 G/DL (3.4-5.0); ANION GAP 5 (8-16); BLOOD UREA NITROGEN 9 MG/DL (7-18); BUN/CREATININE RATIO 39.1 (5.4-32.0); C-REACTIVE PROTEIN 5.62 MG/DL (0.0-0.5); CALCIUM 9.9 MG/DL (8.5-10.1); CHLORIDE 103 MMOL/L (99-107); CREATININE 0.23 MG/DL (0.60-1.10); GLUCOSE 159 MG/DL (70-104); LACTATE DEHYDROGENASE 126 U/L (85-227); MAGNESIUM 1.9 MG/DL (1.5-2.4); PHOSPHORUS 5.7 MG/DL (2.3-4.5); POTASSIUM 3.8 MMOL/L (3.5-5.1); SODIUM 141 MMOL/L (135-145); TOTAL CARBON DIOXIDE 32.7 MMOL/L (24-32); eGFR > 90 ML/MIN
[2021-11-14] MEDS: ferrous sulfate 300mg/5ml UD oral liquid PEG SCH (08:13)
[2021-11-14] MEDS: zinc sulfate 220mg capsule PEG SCH ×3 (08:14→20:03)
[2021-11-14] MEDS: gabapentin 100mg capsule PEG SCH ×3 (08:14→16:00)
[2021-11-14] MEDS: cloNIDine 0.1 mg tablet PEG SCH ×3 (08:14→16:00)
[2021-11-14] MEDS: loratadine 10mg tablet PEG SCH (08:14)
[2021-11-14] MEDS: metoprolol tartrate 25mg tablet PEG SCH ×2 (08:15→19:49)
[2021-11-14] MEDS: sennosides/docusate sodium tablet PEG SCH ×2 (08:15→19:49)
[2021-11-14] MEDS: lansoprazole 15mg solutab PEG SCH (08:15)
[2021-11-14] MEDS: nystatin 15 GM powder TP SCH ×3 (08:15→20:03)
[2021-11-14] MEDS: polyethylene glycol 3350 17gm powd pack PEG SCH (08:15)
[2021-11-14] MEDS: enoxaparin 40mg/0.4ml syringe SQ SCH ×2 (08:16→19:49)
[2021-11-14] MEDS: lactobacillus rhamnosus 10,000 MMU CELLS/CAPSULE PEG SCH ×2 (08:16→19:48)
[2021-11-14] MEDS: MULTIVIT-MIN/FERROUS GLUCONATE 9 MG/15 ML LIQUID PEG SCH (08:39)
[2021-11-14] MEDS ORDERED: insulin Lispro (HumaLOG) vial - multi-dose SQ SCH (08:45)
[2021-11-14] MEDS: lactose-reduced food (Ensure Enlive) - 237ml bottle PO SCH ×2 (12:30→17:50)
[2021-11-14] MEDS: fentaNYL 25MCG/hour patch.TD72 TD SCH (15:11)
[2021-11-15] VITALS (22 sets, daily range): BP systolic 111–131; BP diastolic 71–95
[2021-11-15] MEDS: oxyCODONE IR 5mg (immed. release) tablet PEG PRN ×2 (02:46→07:29)
--- NOTE | 2021-11-15 06:02 | NUR ---
Problems reprioritized. Patient report given, questions answered & plan of care reviewed with ANDRÉS Cruz
[2021-11-15 06:17] LABS: BASOPHILS # (AUTO) 0.1 X10'3 (0-0.2); BASOPHILS % (AUTO) 1.1 % (0-1); EOSINOPHILS # (AUTO) 0.3 X10'3 (0-0.9); EOSINOPHILS % (AUTO) 5.7 % (0-6); HEMATOCRIT 32.2 % (42.0-52.0); HEMOGLOBIN 10.5 g/dl (14.0-17.9); LYMPHOCYTES # (AUTO) 1.4 X10'3 (1.1-4.8); LYMPHOCYTES % (AUTO) 28.1 % (21-51); MEAN CORPUSCULAR HEMOGLOBIN 26.6 PG (27.0-31.0); MEAN CORPUSCULAR HGB CONC 32.8 g/dL (33.0-36.5); MEAN CORPUSCULAR VOLUME 81.4 FL (78-98); MEAN PLATELET VOLUME 8.8 FL (7.4-10.4); MONOCYTES # (AUTO) 0.4 X10'3 (0-0.9); NEUTROPHILS # (AUTO) 2.8 X10'3 (1.8-7.7); NEUTROPHILS % (AUTO) 57.1 % (42-75); PLATELET COUNT 398 X10'3 (140-440); RED BLOOD COUNT 3.96 X10'6 (4.70-6.10)
[2021-11-15 06:21] LABS: D-DIMER 1.79 MG/L FEU (0-0.50)
[2021-11-15 06:27] LABS: ALANINE AMINOTRANSFERASE 21 U/L (12-78); ALBUMIN/GLOBULIN RATIO 0.7 (1.1-1.5); ALKALINE PHOSPHATASE 110 IU/L (46-116); ANION GAP 8 (8-16); ASPARTATE AMINO TRANSFERASE 8 U/L (10-37); BILIRUBIN,TOTAL 0.2 MG/DL (0.1-1.0); BLOOD UREA NITROGEN 8 MG/DL (7-18); BUN/CREATININE RATIO 27.6 (5.4-32.0); C-REACTIVE PROTEIN 2.84 MG/DL (0.0-0.5); CALCIUM 10.2 MG/DL (8.5-10.1); CHLORIDE 99 MMOL/L (99-107); CREATININE 0.29 MG/DL (0.60-1.10); GLUCOSE 170 MG/DL (70-104); LACTATE DEHYDROGENASE 134 U/L (85-227); POTASSIUM 3.8 MMOL/L (3.5-5.1); SODIUM 137 MMOL/L (135-145); TOTAL CARBON DIOXIDE 29.9 MMOL/L (24-32); TOTAL PROTEIN 7.5 G/DL (6.4-8.2); eGFR > 90 ML/MIN
[2021-11-15] MEDS: loratadine 10mg tablet PEG SCH (07:20)
[2021-11-15] MEDS: sennosides/docusate sodium tablet PEG SCH ×2 (07:20→20:07)
[2021-11-15] MEDS: sevelamer carbonate 0.8gm powder pkt PEG SCH ×3 (07:21→21:27)
[2021-11-15] MEDS: gabapentin 100mg capsule PEG SCH ×3 (07:21→14:47)
[2021-11-15] MEDS: MULTIVIT-MIN/FERROUS GLUCONATE 9 MG/15 ML LIQUID PEG SCH (07:22)
[2021-11-15] MEDS: zinc sulfate 220mg capsule PEG SCH ×3 (07:22→20:07)
[2021-11-15] MEDS: lansoprazole 15mg solutab PEG SCH (07:22)
[2021-11-15] MEDS: lactobacillus rhamnosus 10,000 MMU CELLS/CAPSULE PEG SCH ×2 (07:22→20:07)
[2021-11-15] MEDS: metoprolol tartrate 25mg tablet PEG SCH ×2 (07:22→20:07)
[2021-11-15] MEDS: cloNIDine 0.1 mg tablet PEG SCH ×3 (07:23→14:47)
[2021-11-15] MEDS: enoxaparin 40mg/0.4ml syringe SQ SCH ×2 (07:23→20:09)
[2021-11-15] MEDS: polyethylene glycol 3350 17gm powd pack PEG SCH (07:24)
[2021-11-15] MEDS: nystatin 15 GM powder TP SCH ×3 (07:24→21:00)
[2021-11-15] MEDS: ferrous sulfate 300mg/5ml UD oral liquid PEG SCH (07:24)
[2021-11-15] MEDS: lactose-reduced food (Ensure Enlive) - 237ml bottle PO SCH ×2 (07:29→14:42)
--- NOTE | 2021-11-15 14:02 | NUR ---
Reassessment: PO intake of meals has significantly improved, up to 75-100% PO intake for two consecutive days. Pending documentation of PO intake for today though pt reportedly eating well per RN at critical care rounds. Patient's TF visualized at bedside to be discontinued 11/14 per MD though orders remain active in EMR. D/w RN recommendation to discontinue TF orders in EMR as pt is no longer receiving nutrition support. Pt receiving an Ensure Enlive BIDLD though no documentation of ONS acceptance with the exception of 25% with supper 11/13. LBM 11/13, receiving routine bowel care. Will continue to follow and monitor need for further nutrition intervention. Recommendations: 1) Continue mechanical soft chop all (SB6) diet, no coffee; encourage PO intake 2) Vanilla Ensure Enlive BIDLD 3) Continue routine MVM with Iron and Zinc per MD 4) Routine Phos binder per MD 5) Weekly scaled weights 6) Routine bowel care 7) Monitor need for DM education with official DM dx by physician; A1c 10.1% with no PMH DM in EMR on admit; updated A1c 4.8% 11/06 Addendum: 11/15/21 at [address] Amended: Links added.
[2021-11-16] VITALS (24 sets, daily range): BP systolic 109–141; BP diastolic 71–97
[2021-11-16] MEDS: cloNIDine 0.1 mg tablet PEG SCH ×3 (01:07→16:00)
[2021-11-16] MEDS: gabapentin 100mg capsule PEG SCH ×3 (01:07→16:00)
[2021-11-16] MEDS: Melatonin 3mg tablet PO SCH ×2 (01:57→20:40)
[2021-11-16 07:04] LABS: BASOPHILS % (AUTO) 0.7 % (0-1); EOSINOPHILS # (AUTO) 0.2 X10'3 (0-0.9); EOSINOPHILS % (AUTO) 3.4 % (0-6); HEMOGLOBIN 11.1 g/dl (14.0-17.9); LYMPHOCYTES # (AUTO) 1.8 X10'3 (1.1-4.8); LYMPHOCYTES % (AUTO) 31.4 % (21-51); MEAN CORPUSCULAR HEMOGLOBIN 27.4 PG (27.0-31.0); MEAN CORPUSCULAR HGB CONC 33.7 g/dL (33.0-36.5); MEAN CORPUSCULAR VOLUME 81.5 FL (78-98); MEAN PLATELET VOLUME 8.4 FL (7.4-10.4); MONOCYTES # (AUTO) 0.4 X10'3 (0-0.9); MONOCYTES % (AUTO) 6.5 % (2-12); NEUTROPHILS # (AUTO) 3.3 X10'3 (1.8-7.7); PLATELET COUNT 420 X10'3 (140-440); RED BLOOD COUNT 4.05 X10'6 (4.70-6.10); RED CELL DISTRIBUTION WIDTH 16.5 % (11.5-14.5); WHITE BLOOD COUNT 5.7 X10'3 (4.5-11.0)
[2021-11-16 07:05] LABS: D-DIMER 1.42 MG/L FEU (0-0.50)
[2021-11-16 07:08] LABS: ALBUMIN 3.2 G/DL (3.4-5.0); ANION GAP 9 (8-16); BLOOD UREA NITROGEN 7 MG/DL (7-18); BUN/CREATININE RATIO 29.2 (5.4-32.0); CALCIUM 10.2 MG/DL (8.5-10.1); CHLORIDE 103 MMOL/L (99-107); CREATININE 0.24 MG/DL (0.60-1.10); GLUCOSE 147 MG/DL (70-104); LACTATE DEHYDROGENASE 138 U/L (85-227); POTASSIUM 3.8 MMOL/L (3.5-5.1); SODIUM 141 MMOL/L (135-145); TOTAL CARBON DIOXIDE 29.2 MMOL/L (24-32); eGFR > 90 ML/MIN
[2021-11-16 07:09] LABS: C-REACTIVE PROTEIN 1.81 MG/DL (0.0-0.5)
[2021-11-16] MEDS: ferrous sulfate 300mg/5ml UD oral liquid PEG SCH (08:16)
[2021-11-16] MEDS: polyethylene glycol 3350 17gm powd pack PEG SCH (08:16)
[2021-11-16] MEDS: lansoprazole 15mg solutab PEG SCH (08:16)
[2021-11-16] MEDS: oxyCODONE IR 5mg (immed. release) tablet PEG PRN (08:16)
[2021-11-16] MEDS: sennosides/docusate sodium tablet PEG SCH ×2 (08:16→20:40)
[2021-11-16] MEDS: MULTIVIT-MIN/FERROUS GLUCONATE 9 MG/15 ML LIQUID PEG SCH (08:16)
[2021-11-16] MEDS: zinc sulfate 220mg capsule PEG SCH ×3 (08:16→20:40)
[2021-11-16] MEDS: lactobacillus rhamnosus 10,000 MMU CELLS/CAPSULE PEG SCH ×2 (08:16→20:40)
[2021-11-16] MEDS: nystatin 15 GM powder TP SCH ×3 (08:16→20:40)
[2021-11-16] MEDS: loratadine 10mg tablet PEG SCH (08:17)
[2021-11-16] MEDS: sevelamer carbonate 0.8gm powder pkt PEG SCH ×3 (08:17→18:33)
[2021-11-16] MEDS: enoxaparin 40mg/0.4ml syringe SQ SCH ×2 (08:17→20:40)
[2021-11-16] MEDS: metoprolol tartrate 25mg tablet PEG SCH ×2 (08:20→20:40)
[2021-11-16] MEDS: lactose-reduced food (Ensure Enlive) - 237ml bottle PO SCH ×2 (12:30→17:30)
--- NOTE | 2021-11-16 18:10 | NUR ---
Patient in room CICU 2008. I have received report from ANDRÉS Cruz and had the opportunity to ask questions and assume patient care. Patient is awake and alert visiting with family at time of report.
[2021-11-17] VITALS (21 sets, daily range): BP systolic 111–136; BP diastolic 77–100
[2021-11-17] MEDS: cloNIDine 0.1 mg tablet PEG SCH ×3 (00:36→16:54)
[2021-11-17] MEDS: gabapentin 100mg capsule PEG SCH ×3 (00:37→16:34)
[2021-11-17 05:13] LABS: BASOPHILS % (AUTO) 0.9 % (0-1); D-DIMER 1.47 MG/L FEU (0-0.50); EOSINOPHILS # (AUTO) 0.2 X10'3 (0-0.9); EOSINOPHILS % (AUTO) 3.4 % (0-6); HEMATOCRIT 32.5 % (42.0-52.0); HEMOGLOBIN 10.8 g/dl (14.0-17.9); LYMPHOCYTES # (AUTO) 1.8 X10'3 (1.1-4.8); LYMPHOCYTES % (AUTO) 31.7 % (21-51); MEAN CORPUSCULAR HEMOGLOBIN 26.7 PG (27.0-31.0); MEAN CORPUSCULAR HGB CONC 33.1 g/dL (33.0-36.5); MEAN CORPUSCULAR VOLUME 80.7 FL (78-98); MEAN PLATELET VOLUME 8.3 FL (7.4-10.4); MONOCYTES # (AUTO) 0.4 X10'3 (0-0.9); NEUTROPHILS # (AUTO) 3.2 X10'3 (1.8-7.7); PLATELET COUNT 408 X10'3 (140-440); RED BLOOD COUNT 4.03 X10'6 (4.70-6.10); RED CELL DISTRIBUTION WIDTH 16.7 % (11.5-14.5); WHITE BLOOD COUNT 5.6 X10'3 (4.5-11.0)
[2021-11-17 05:14] LABS: ALBUMIN 3.1 G/DL (3.4-5.0); ANION GAP 9 (8-16); BLOOD UREA NITROGEN 8 MG/DL (7-18); BUN/CREATININE RATIO 22.2 (5.4-32.0); C-REACTIVE PROTEIN 1.04 MG/DL (0.0-0.5); CALCIUM 10.4 MG/DL (8.5-10.1); CHLORIDE 101 MMOL/L (99-107); CREATININE 0.36 MG/DL (0.60-1.10); GLUCOSE 141 MG/DL (70-104); LACTATE DEHYDROGENASE 121 U/L (85-227); POTASSIUM 3.7 MMOL/L (3.5-5.1); SODIUM 138 MMOL/L (135-145); TOTAL CARBON DIOXIDE 27.8 MMOL/L (24-32); eGFR > 90 ML/MIN
--- NOTE | 2021-11-17 05:50 | NUR ---
End of shift note: Patient appears to have been able to sleep after about 0100. Patient given a bed bath, wounds re dressed and weekly pictures taken. Patient wants to remain on the t-piece with the walsh for suction attached. RN offered to switch patient over to trach collar several times without success. Patient education given on reasons for wearing the collar instead of the t-piece : less weight on his stoma, decreased oxygen requirement, good step towards weaning off oxygen. Patient continued to refuse. Patient requests to remain on his back, he is shifting his hips independently. Patient encouraged to move his limbs while in bed, reach for needed/ wanted items on bedside table. Patient encouraged to assist with self care: bathing, oral care.
--- NOTE | 2021-11-17 06:21 | NUR ---
Problems reprioritized. Patient report given, questions answered & plan of care reviewed with ANDRÉS Jordan.
[2021-11-17] MEDS: lansoprazole 15mg solutab PEG SCH (07:30)
[2021-11-17] MEDS: loratadine 10mg tablet PEG SCH (08:00)
[2021-11-17] MEDS: sevelamer carbonate 0.8gm powder pkt PEG SCH ×3 (08:00→17:42)
[2021-11-17] MEDS: polyethylene glycol 3350 17gm powd pack PEG SCH (08:00)
[2021-11-17] MEDS: ferrous sulfate 300mg/5ml UD oral liquid PEG SCH (08:00)
[2021-11-17] MEDS: enoxaparin 40mg/0.4ml syringe SQ SCH ×2 (08:00→20:33)
[2021-11-17] MEDS: nystatin 15 GM powder TP SCH ×3 (08:00→20:40)
[2021-11-17] MEDS: metoprolol tartrate 25mg tablet PEG SCH ×2 (08:00→20:40)
[2021-11-17] MEDS: sennosides/docusate sodium tablet PEG SCH ×2 (08:00→20:38)
[2021-11-17] MEDS: MULTIVIT-MIN/FERROUS GLUCONATE 9 MG/15 ML LIQUID PEG SCH (08:00)
[2021-11-17] MEDS: lactobacillus rhamnosus 10,000 MMU CELLS/CAPSULE PEG SCH ×2 (08:00→20:38)
[2021-11-17] MEDS: zinc sulfate 220mg capsule PEG SCH ×3 (08:00→20:38)
[2021-11-17] MEDS: ondansetron/PF 4mg/2ml inj IV PRN ×3 (10:00→21:14)
[2021-11-17] MEDS: lactose-reduced food (Ensure Enlive) - 237ml bottle PO SCH ×2 (12:32→17:30)
[2021-11-17] MEDS: fentaNYL 25MCG/hour patch.TD72 TD SCH (12:53)
[2021-11-17] MEDS: Melatonin 3mg tablet PO SCH (20:38)
[2021-11-18] VITALS (22 sets, daily range): BP systolic 105–139; BP diastolic 68–106
[2021-11-18] MEDS: gabapentin 100mg capsule PEG SCH ×4 (00:14→23:59)
[2021-11-18] MEDS: cloNIDine 0.1 mg tablet PEG SCH ×4 (00:14→23:59)
[2021-11-18 06:20] LABS: BASOPHILS % (AUTO) 0.9 % (0-1); EOSINOPHILS # (AUTO) 0.2 X10'3 (0-0.9); HEMATOCRIT 32.8 % (42.0-52.0); LYMPHOCYTES # (AUTO) 1.2 X10'3 (1.1-4.8); LYMPHOCYTES % (AUTO) 27.8 % (21-51); MEAN CORPUSCULAR HEMOGLOBIN 27.1 PG (27.0-31.0); MEAN CORPUSCULAR HGB CONC 33.6 g/dL (33.0-36.5); MEAN CORPUSCULAR VOLUME 80.7 FL (78-98); MEAN PLATELET VOLUME 8.1 FL (7.4-10.4); MONOCYTES # (AUTO) 0.5 X10'3 (0-0.9); MONOCYTES % (AUTO) 10.4 % (2-12); NEUTROPHILS # (AUTO) 2.5 X10'3 (1.8-7.7); NEUTROPHILS % (AUTO) 56.9 % (42-75); PLATELET COUNT 367 X10'3 (140-440); RED BLOOD COUNT 4.07 X10'6 (4.70-6.10); RED CELL DISTRIBUTION WIDTH 16.9 % (11.5-14.5); WHITE BLOOD COUNT 4.4 X10'3 (4.5-11.0)
[2021-11-18 06:28] LABS: ALBUMIN 3.2 G/DL (3.4-5.0); ANION GAP 4 (8-16); BLOOD UREA NITROGEN 8 MG/DL (7-18); BUN/CREATININE RATIO 23.5 (5.4-32.0); C-REACTIVE PROTEIN 0.65 MG/DL (0.0-0.5); CALCIUM 10.8 MG/DL (8.5-10.1); CHLORIDE 99 MMOL/L (99-107); CREATININE 0.34 MG/DL (0.60-1.10); GLUCOSE 136 MG/DL (70-104); LACTATE DEHYDROGENASE 128 U/L (85-227); MAGNESIUM 1.9 MG/DL (1.5-2.4); PHOSPHORUS 5.8 MG/DL (2.3-4.5); POTASSIUM 3.5 MMOL/L (3.5-5.1); SODIUM 132 MMOL/L (135-145); TOTAL CARBON DIOXIDE 28.7 MMOL/L (24-32); eGFR > 90 ML/MIN
[2021-11-18 06:29] LABS: D-DIMER 1.19 MG/L FEU (0-0.50)
[2021-11-18] MEDS: zinc sulfate 220mg capsule PEG SCH ×3 (08:44→20:17)
[2021-11-18] MEDS: lactobacillus rhamnosus 10,000 MMU CELLS/CAPSULE PEG SCH ×2 (08:44→20:17)
[2021-11-18] MEDS: metoprolol tartrate 25mg tablet PEG SCH ×2 (08:44→20:18)
[2021-11-18] MEDS: ferrous sulfate 300mg/5ml UD oral liquid PEG SCH (08:44)
[2021-11-18] MEDS: ondansetron/PF 4mg/2ml inj IV PRN (08:44)
[2021-11-18] MEDS: loratadine 10mg tablet PEG SCH (08:44)
[2021-11-18] MEDS: sevelamer carbonate 0.8gm powder pkt PEG SCH ×3 (08:45→17:19)
[2021-11-18] MEDS: nystatin 15 GM powder TP SCH ×3 (08:45→20:19)
[2021-11-18] MEDS: enoxaparin 40mg/0.4ml syringe SQ SCH ×2 (08:45→20:17)
[2021-11-18] MEDS: polyethylene glycol 3350 17gm powd pack PEG SCH (08:50)
[2021-11-18] MEDS: MULTIVIT-MIN/FERROUS GLUCONATE 9 MG/15 ML LIQUID PEG SCH (08:50)
[2021-11-18] MEDS: lansoprazole 15mg solutab PEG SCH (08:50)
[2021-11-18] MEDS: sennosides/docusate sodium tablet PEG SCH ×2 (08:50→20:17)
[2021-11-18] MEDS: Melatonin 3mg tablet PO SCH (20:19)
[2021-11-19] VITALS (24 sets, daily range): BP systolic 106–139; BP diastolic 73–94
[2021-11-19 04:46] LABS: BASOPHILS % (AUTO) 0.9 % (0-1); EOSINOPHILS # (AUTO) 0.1 X10'3 (0-0.9); EOSINOPHILS % (AUTO) 2.9 % (0-6); HEMATOCRIT 33.6 % (42.0-52.0); HEMOGLOBIN 11.1 g/dl (14.0-17.9); LYMPHOCYTES # (AUTO) 1.5 X10'3 (1.1-4.8); MEAN CORPUSCULAR HEMOGLOBIN 26.9 PG (27.0-31.0); MEAN CORPUSCULAR HGB CONC 33.1 g/dL (33.0-36.5); MEAN CORPUSCULAR VOLUME 81.3 FL (78-98); MEAN PLATELET VOLUME 8.1 FL (7.4-10.4); MONOCYTES # (AUTO) 0.5 X10'3 (0-0.9); MONOCYTES % (AUTO) 10.2 % (2-12); NEUTROPHILS # (AUTO) 2.3 X10'3 (1.8-7.7); PLATELET COUNT 359 X10'3 (140-440); RED BLOOD COUNT 4.13 X10'6 (4.70-6.10); RED CELL DISTRIBUTION WIDTH 16.8 % (11.5-14.5); WHITE BLOOD COUNT 4.4 X10'3 (4.5-11.0)
[2021-11-19 04:55] LABS: ALBUMIN 3.1 G/DL (3.4-5.0); ANION GAP 7 (8-16); BLOOD UREA NITROGEN 8 MG/DL (7-18); BUN/CREATININE RATIO 22.2 (5.4-32.0); CALCIUM 10.6 MG/DL (8.5-10.1); CHLORIDE 100 MMOL/L (99-107); CREATININE 0.36 MG/DL (0.60-1.10); GLUCOSE 150 MG/DL (70-104); LACTATE DEHYDROGENASE 113 U/L (85-227); POTASSIUM 3.9 MMOL/L (3.5-5.1); SODIUM 137 MMOL/L (135-145); TOTAL CARBON DIOXIDE 29.6 MMOL/L (24-32); eGFR > 90 ML/MIN
[2021-11-19] MEDS: ondansetron/PF 4mg/2ml inj IV PRN (07:31)
[2021-11-19] MEDS: polyethylene glycol 3350 17gm powd pack PEG SCH (08:00)
[2021-11-19] MEDS: nystatin 15 GM powder TP SCH ×3 (08:00→21:16)
[2021-11-19] MEDS: lansoprazole 15mg solutab PEG SCH (08:25)
[2021-11-19] MEDS: ferrous sulfate 300mg/5ml UD oral liquid PEG SCH (08:25)
[2021-11-19] MEDS: sennosides/docusate sodium tablet PEG SCH ×2 (08:25→20:17)
[2021-11-19] MEDS: MULTIVIT-MIN/FERROUS GLUCONATE 9 MG/15 ML LIQUID PEG SCH (08:25)
[2021-11-19] MEDS: cloNIDine 0.1 mg tablet PEG SCH ×2 (08:25→16:00)
[2021-11-19] MEDS: lactobacillus rhamnosus 10,000 MMU CELLS/CAPSULE PEG SCH ×2 (08:25→20:17)
[2021-11-19] MEDS: metoprolol tartrate 25mg tablet PEG SCH ×2 (08:26→20:17)
[2021-11-19] MEDS: enoxaparin 40mg/0.4ml syringe SQ SCH ×2 (08:26→20:18)
[2021-11-19] MEDS: loratadine 10mg tablet PEG SCH (08:26)
[2021-11-19] MEDS: sevelamer carbonate 0.8gm powder pkt PEG SCH ×3 (08:27→18:00)
[2021-11-19] MEDS: gabapentin 100mg capsule PEG SCH ×2 (08:27→16:00)
[2021-11-19] MEDS: zinc sulfate 220mg capsule PEG SCH ×3 (08:55→20:18)
[2021-11-19] MEDS: Melatonin 3mg tablet PO SCH (20:17)
[2021-11-19] MEDS: acetaminophen 325mg/10.15ml oral unit dose solution PEG PRN (20:18)
[2021-11-19] MEDS: LORazepam 1 MG tablet PO PRN (23:37)
[2021-11-20] VITALS (23 sets, daily range): BP systolic 113–144; BP diastolic 77–96
[2021-11-20 06:20] LABS: ALBUMIN 3.2 G/DL (3.4-5.0); ANION GAP 10 (8-16); BLOOD UREA NITROGEN 7 MG/DL (7-18); BUN/CREATININE RATIO 17.9 (5.4-32.0); C-REACTIVE PROTEIN 0.34 MG/DL (0.0-0.5); CALCIUM 10.3 MG/DL (8.5-10.1); CHLORIDE 100 MMOL/L (99-107); CREATININE 0.39 MG/DL (0.60-1.10); D-DIMER 0.96 MG/L FEU (0-0.50); GLUCOSE 126 MG/DL (70-104); LACTATE DEHYDROGENASE 131 U/L (85-227); POTASSIUM 3.6 MMOL/L (3.5-5.1); SODIUM 136 MMOL/L (135-145); TOTAL CARBON DIOXIDE 26.4 MMOL/L (24-32); eGFR > 90 ML/MIN
[2021-11-20 06:29] LABS: BASOPHILS % (AUTO) 0.8 % (0-1); EOSINOPHILS # (AUTO) 0.1 X10'3 (0-0.9); EOSINOPHILS % (AUTO) 2.3 % (0-6); HEMATOCRIT 33.8 % (42.0-52.0); HEMOGLOBIN 11.1 g/dl (14.0-17.9); LYMPHOCYTES # (AUTO) 1.5 X10'3 (1.1-4.8); MEAN CORPUSCULAR HEMOGLOBIN 26.5 PG (27.0-31.0); MEAN CORPUSCULAR VOLUME 80.3 FL (78-98); MEAN PLATELET VOLUME 8.5 FL (7.4-10.4); MONOCYTES # (AUTO) 0.4 X10'3 (0-0.9); MONOCYTES % (AUTO) 9.6 % (2-12); NEUTROPHILS # (AUTO) 2.2 X10'3 (1.8-7.7); NEUTROPHILS % (AUTO) 51.3 % (42-75); PLATELET COUNT 369 X10'3 (140-440); RED BLOOD COUNT 4.21 X10'6 (4.70-6.10); RED CELL DISTRIBUTION WIDTH 16.4 % (11.5-14.5); WHITE BLOOD COUNT 4.2 X10'3 (4.5-11.0)
[2021-11-20] MEDS: sennosides/docusate sodium tablet PEG SCH ×2 (08:00→20:16)
[2021-11-20] MEDS: polyethylene glycol 3350 17gm powd pack PEG SCH (08:00)
[2021-11-20] MEDS: enoxaparin 40mg/0.4ml syringe SQ SCH ×2 (08:45→20:16)
[2021-11-20] MEDS: ferrous sulfate 300mg/5ml UD oral liquid PEG SCH (08:45)
[2021-11-20] MEDS: sevelamer carbonate 0.8gm powder pkt PEG SCH ×3 (08:45→18:00)
[2021-11-20] MEDS: MULTIVIT-MIN/FERROUS GLUCONATE 9 MG/15 ML LIQUID PEG SCH (08:45)
[2021-11-20] MEDS: gabapentin 100mg capsule PEG SCH ×3 (08:45→16:20)
[2021-11-20] MEDS: lactobacillus rhamnosus 10,000 MMU CELLS/CAPSULE PEG SCH ×2 (08:45→20:15)
[2021-11-20] MEDS: nystatin 15 GM powder TP SCH ×3 (08:46→20:23)
[2021-11-20] MEDS: zinc sulfate 220mg capsule PEG SCH ×3 (08:46→20:15)
[2021-11-20] MEDS: cloNIDine 0.1 mg tablet PEG SCH ×3 (08:46→16:20)
[2021-11-20] MEDS: loratadine 10mg tablet PEG SCH (08:46)
[2021-11-20] MEDS: metoprolol tartrate 25mg tablet PEG SCH ×2 (08:46→20:15)
[2021-11-20] MEDS: lansoprazole 15mg solutab PEG SCH (08:47)
--- NOTE | 2021-11-20 14:58 | NUR ---
F/u 11/20: Pt PO 75-100% avg SB6/thin meals meeting needs. Given pt PO tolerance/adequate intake; RD notified MD for updated GERMAN PROFESSOR BSS if agreeable in hopes to liberalize to normal textures as pt requesting sandwiches. Noted wt change 69.7kg to 53.3kg this AM; likely error true BMI 23. LBM 11/18. No nutrition intervention at this time. Will continue to monitor. Recommendations: 1) Continue mechanical soft chop all (SB6) diet, no coffee; encourage PO intake. Advance to regular diet per GERMAN PROFESSOR/MD recs 2) Continue routine MVM with Iron and Zinc per MD 3) Routine Phos binder per MD 4) bowel care per rx 5) Weekly scaled weights 6) Monitor need for DM education with official DM dx by physician; A1c 10.1% with no PMH DM in EMR on admit; updated A1c 4.8% 11/06 Addendum: 11/20/21 at [address] Amended: Links added.
[2021-11-20] MEDS: lactose-reduced food (Ensure Enlive) - 237ml bottle PO SCH (18:00)
[2021-11-20] MEDS: Melatonin 3mg tablet PO SCH (20:15)
[2021-11-21] VITALS (21 sets, daily range): BP systolic 105–133; BP diastolic 68–97
[2021-11-21 05:47] LABS: D-DIMER 0.91 MG/L FEU (0-0.50)
[2021-11-21 05:48] LABS: BASOPHILS # (AUTO) 0.1 X10'3 (0-0.2); BASOPHILS % (AUTO) 1.1 % (0-1); EOSINOPHILS # (AUTO) 0.1 X10'3 (0-0.9); EOSINOPHILS % (AUTO) 2.2 % (0-6); HEMOGLOBIN 11.6 g/dl (14.0-17.9); LYMPHOCYTES # (AUTO) 1.9 X10'3 (1.1-4.8); MEAN CORPUSCULAR HEMOGLOBIN 26.8 PG (27.0-31.0); MEAN CORPUSCULAR HGB CONC 33.1 g/dL (33.0-36.5); MEAN CORPUSCULAR VOLUME 80.9 FL (78-98); MEAN PLATELET VOLUME 8.4 FL (7.4-10.4); MONOCYTES # (AUTO) 0.5 X10'3 (0-0.9); MONOCYTES % (AUTO) 10.9 % (2-12); NEUTROPHILS # (AUTO) 2.3 X10'3 (1.8-7.7); NEUTROPHILS % (AUTO) 46.8 % (42-75); PLATELET COUNT 362 X10'3 (140-440); RED BLOOD COUNT 4.32 X10'6 (4.70-6.10); RED CELL DISTRIBUTION WIDTH 16.9 % (11.5-14.5); WHITE BLOOD COUNT 4.9 X10'3 (4.5-11.0)
[2021-11-21 05:52] LABS: ALBUMIN 3.5 G/DL (3.4-5.0); ANION GAP 5 (8-16); BLOOD UREA NITROGEN 7 MG/DL (7-18); BUN/CREATININE RATIO 24.1 (5.4-32.0); C-REACTIVE PROTEIN 0.22 MG/DL (0.0-0.5); CALCIUM 10.5 MG/DL (8.5-10.1); CHLORIDE 104 MMOL/L (99-107); CREATININE 0.29 MG/DL (0.60-1.10); GLUCOSE 136 MG/DL (70-104); LACTATE DEHYDROGENASE 151 U/L (85-227); PHOSPHORUS 5.5 MG/DL (2.3-4.5); POTASSIUM 3.6 MMOL/L (3.5-5.1); SODIUM 140 MMOL/L (135-145); TOTAL CARBON DIOXIDE 30.6 MMOL/L (24-32); eGFR > 90 ML/MIN
[2021-11-21] MEDS: sennosides/docusate sodium tablet PEG SCH ×2 (07:35→21:01)
[2021-11-21] MEDS: cloNIDine 0.1 mg tablet PEG SCH ×2 (07:35)
[2021-11-21] MEDS: ferrous sulfate 300mg/5ml UD oral liquid PEG SCH (07:35)
[2021-11-21] MEDS: lansoprazole 15mg solutab PEG SCH (07:35)
[2021-11-21] MEDS: MULTIVIT-MIN/FERROUS GLUCONATE 9 MG/15 ML LIQUID PEG SCH (07:35)
[2021-11-21] MEDS: loratadine 10mg tablet PEG SCH (07:35)
[2021-11-21] MEDS: zinc sulfate 220mg capsule PEG SCH (07:36)
[2021-11-21] MEDS: lactobacillus rhamnosus 10,000 MMU CELLS/CAPSULE PEG SCH (07:36)
[2021-11-21] MEDS: gabapentin 100mg capsule PEG SCH ×2 (07:36)
[2021-11-21] MEDS: sevelamer carbonate 0.8gm powder pkt PEG SCH (07:36)
[2021-11-21] MEDS: metoprolol tartrate 25mg tablet PEG SCH (07:36)
[2021-11-21] MEDS: polyethylene glycol 3350 17gm powd pack PEG SCH (07:37)
[2021-11-21] MEDS: enoxaparin 40mg/0.4ml syringe SQ SCH ×2 (07:37→21:02)
[2021-11-21] MEDS: nystatin 15 GM powder TP SCH ×3 (07:37→21:02)
[2021-11-21] MEDS: lactose-reduced food (Ensure Enlive) - 237ml bottle PO SCH ×3 (08:00→18:00)
[2021-11-21] MEDS ORDERED: dextrose ORAL solution 15 GM/59 ML bottle PO PRN ×2 (09:32)
[2021-11-21] MEDS ORDERED: acetaminophen 325mg tablet PO PRN ×2 (09:35)
[2021-11-21] MEDS ORDERED: loratadine 10mg tablet PO SCH (09:39)
[2021-11-21] MEDS ORDERED: oxyCODONE IR 5mg (immed. release) tablet PO PRN (09:40)
[2021-11-21] MEDS ORDERED: polyethylene glycol 3350 17gm powd pack PO PRN (09:40)
[2021-11-21] MEDS ORDERED: POTASSIUM CHLORIDE 20 MEQ/15 ML oral solution PO PRN ×2 (09:41→09:42)
[2021-11-21] MEDS ORDERED: polyethylene glycol 3350 17gm powd pack PO SCH (09:41)
--- NOTE | 2021-11-21 10:11 | NUR ---
pt does not think he is ready for discharge. encouragement provided. case management informed
--- NOTE | 2021-11-21 11:29 | NUR ---
F/u 11/21: Pt s/p f/u BSS with ST recs advancing to regular diet, patient's food preferences will be honored now that it is allowed with texture upgrade, pt and dietary notified. Noted an Ensure Enlive was ordered TIDWM however pt with 75-100% PO intake of meals meeting estimated nutrient needs. D/w RN recommendation to discontinue ONS. Patient's BG levels have been fairly well controlled with range of 115-150 mg/dL since 11/19 while not on a CHO controlled diet and has not required insulin coverage since 11/13, d/w who confirms pt likely does not have diabetes. Pt no longer requires DM education at this time. RN obtained new scaled wt at bedside, pt 62.5 kg resulting in appropriate BMI of 20, pending documentation of new weight in EMR. Will continue to follow. Addendum: 11/21/21 at [address] Amended: Links added.
[2021-11-21] MEDS: sevelamer carbonate 800mg tablet PO SCH ×2 (13:00→18:00)
--- NOTE | 2021-11-21 13:13 | NUR ---
O2 Sat at rest on room air:97___% If below 89%: Recovery O2 Sat at rest on __1_LPM:__97_%:___% via_nasal canula (mask/nasal cannula, etc..) No further documentation is necessary. If O2 Sat did not drop below 89% on room air,ambulate patient on room air. O2 Sat while ambulating on room air:_87__% Recovery O2 Sat while ambulating on _4__LPM:__94_% No further documentation is necessary. If patient does not drop below 89% while ambulating, he/she does not qualify for home O2.
[2021-11-21] MEDS: zinc sulfate 220mg capsule PO SCH ×2 (13:19→21:01)
[2021-11-21] MEDS: gabapentin 100mg capsule PO SCH (16:02)
[2021-11-21] MEDS: cloNIDine 0.1 mg tablet PO SCH (16:03)
[2021-11-21] MEDS: metoprolol tartrate 25mg tablet PO SCH (21:01)
[2021-11-21] MEDS: lactobacillus rhamnosus 10,000 MMU CELLS/CAPSULE PO SCH (21:01)
[2021-11-21] MEDS: Melatonin 3mg tablet PO SCH (21:02)
[2021-11-22] VITALS (12 sets, daily range): BP systolic 105–125; BP diastolic 52–87
[2021-11-22] MEDS: gabapentin 100mg capsule PO SCH ×2 (00:12→08:13)
[2021-11-22] MEDS: cloNIDine 0.1 mg tablet PO SCH ×2 (00:12→08:14)
[2021-11-22] MEDS: LORazepam 1 MG tablet PO PRN (00:12)
[2021-11-22 05:49] LABS: BASOPHILS % (AUTO) 0.9 % (0-1); EOSINOPHILS # (AUTO) 0.1 X10'3 (0-0.9); EOSINOPHILS % (AUTO) 2.7 % (0-6); HEMATOCRIT 35.3 % (42.0-52.0); HEMOGLOBIN 11.7 g/dl (14.0-17.9); LYMPHOCYTES # (AUTO) 1.8 X10'3 (1.1-4.8); LYMPHOCYTES % (AUTO) 33.4 % (21-51); MEAN CORPUSCULAR HEMOGLOBIN 26.7 PG (27.0-31.0); MEAN CORPUSCULAR HGB CONC 33.1 g/dL (33.0-36.5); MEAN CORPUSCULAR VOLUME 80.5 FL (78-98); MEAN PLATELET VOLUME 8.4 FL (7.4-10.4); MONOCYTES # (AUTO) 0.4 X10'3 (0-0.9); MONOCYTES % (AUTO) 7.1 % (2-12); NEUTROPHILS # (AUTO) 2.9 X10'3 (1.8-7.7); NEUTROPHILS % (AUTO) 55.9 % (42-75); PLATELET COUNT 322 X10'3 (140-440); RED BLOOD COUNT 4.39 X10'6 (4.70-6.10); RED CELL DISTRIBUTION WIDTH 16.6 % (11.5-14.5); WHITE BLOOD COUNT 5.3 X10'3 (4.5-11.0)
[2021-11-22 05:58] LABS: C-REACTIVE PROTEIN 0.14 MG/DL (0.0-0.5)
[2021-11-22 05:59] LABS: D-DIMER 0.76 MG/L FEU (0-0.50)
[2021-11-22] MEDS ORDERED: pantoprazole 40mg Tablet.DR PO SCH (07:30)
[2021-11-22] MEDS ORDERED: ferrous sulfate 325mg tablet PO SCH (08:00)
[2021-11-22] MEDS ORDERED: multivitamins, therapeutics tablet PO SCH (08:00)
[2021-11-22] MEDS: metoprolol tartrate 25mg tablet PO SCH (08:12)
[2021-11-22] MEDS: zinc sulfate 220mg capsule PO SCH ×2 (08:13→12:43)
[2021-11-22] MEDS: lactobacillus rhamnosus 10,000 MMU CELLS/CAPSULE PO SCH (08:13)
[2021-11-22] MEDS: sennosides/docusate sodium tablet PEG SCH (08:14)
[2021-11-22] MEDS: enoxaparin 40mg/0.4ml syringe SQ SCH (08:14)
[2021-11-22] MEDS: lactose-reduced food (Ensure Enlive) - 237ml bottle PO SCH ×2 (08:15→12:37)
[2021-11-22] MEDS: nystatin 15 GM powder TP SCH ×2 (08:15→12:43)
[2021-11-22] MEDS: sevelamer carbonate 800mg tablet PO SCH (08:21)
[2021-11-22] MEDS ORDERED: LOP25T PO (11:45)
[2021-11-22] MEDS ORDERED: MELA3TAB39 PO (11:45)
[2021-11-22] MEDS ORDERED: OXYC-658 PO ×2 (11:45→14:28)
[2021-11-22] MEDS ORDERED: LORA10TA65 PO (11:45)
[2021-11-22] MEDS ORDERED: CLON0.1T2 PO (11:45)
[2021-11-22] MEDS ORDERED: ATI1T PO (11:45)
[2021-11-22] MEDS ORDERED: QUET25TA36 PEG (11:45)
[2021-11-22] MEDS ORDERED: ENOX40DI11 SQ (11:45)
[2021-11-22] MEDS ORDERED: BISA10SU11 RC (11:45)
[2021-11-22] MEDS ORDERED: GABA-530 PO ×2 (11:45→14:37)
[2021-11-22] MEDS ORDERED: SEVE800T8 PO (11:45)
[2021-11-22] MEDS ORDERED: FER325T PO (11:45)
[2021-11-22] MEDS ORDERED: sevelamer carbonate 0.8gm powder pkt CORPAK SCH (13:00)
[2021-11-22] MEDS ORDERED: LORA-269 PO (14:30)
[2021-11-22] MEDS ORDERED: BISA-155 PO (14:37)
[2021-11-22] MEDS ORDERED: ENOX40DI8 SQ (14:37)
[2021-11-22] MEDS ORDERED: LOP12.5T PO (14:37)
[2021-11-22] MEDS ORDERED: MELA10TA PO (14:37)
[2021-11-22] MEDS ORDERED: QUET25TA36 PO (14:37)
[2021-11-22] MEDS ORDERED: FERR324T4 PO (14:37)
[2021-11-22] MEDS ORDERED: LORA-512 PO (14:37)
[2021-11-22] MEDS ORDERED: CLON0.1T2 GT (14:37)
== END 2021-11-22 16:36 | disposition home health service (06) | DRG 4 ==
LOC: ER 11:25 → ED HOLD 14:23 → EDBEDREQSVC 15:53 → CICU 2S 16:30
PROVIDERS: ADMIT Internal Medicine Critical Care Medicine; ATTEND Internal Medicine Critical Care Medicine
PROC: XW033H5 Introduction of Tocilizumab into Peripheral Vein, Percutaneous Approach, New Technology Group 5 (ICD-10-PCS; 2021-07-23)
PROC: B32T1ZZ Computerized Tomography (CT Scan) of Left Pulmonary Artery using Low Osmolar Contrast (ICD-10-PCS; 2021-07-23)
PROC: B3201ZZ Computerized Tomography (CT Scan) of Thoracic Aorta using Low Osmolar Contrast (ICD-10-PCS; 2021-07-23)
PROC: B32S1ZZ Computerized Tomography (CT Scan) of Right Pulmonary Artery using Low Osmolar Contrast (ICD-10-PCS; 2021-07-23)
PROC: 5A1955Z Respiratory Ventilation, Greater than 96 Consecutive Hours (ICD-10-PCS; principal; 2021-07-24)
PROC: 0BH17EZ Insertion of Endotracheal Airway into Trachea, Via Natural or Artificial Opening (ICD-10-PCS; 2021-07-24)
PROC: 04HY32Z Insertion of Monitoring Device into Lower Artery, Percutaneous Approach (ICD-10-PCS; 2021-07-24)
PROC: 4A133B1 Monitoring of Arterial Pressure, Peripheral, Percutaneous Approach (ICD-10-PCS; 2021-07-24)
PROC: 4A133J1 Monitoring of Arterial Pulse, Peripheral, Percutaneous Approach (ICD-10-PCS; 2021-07-24)
PROC: 02HV33Z Insertion of Infusion Device into Superior Vena Cava, Percutaneous Approach (ICD-10-PCS; 2021-07-24)
PROC: 5A09357 Assistance with Respiratory Ventilation, Less than 24 Consecutive Hours, Continuous Positive Airway Pressure (ICD-10-PCS; 2021-07-24)
PROC: 02HV33Z Insertion of Infusion Device into Superior Vena Cava, Percutaneous Approach (ICD-10-PCS; 2021-07-30)
PROC: B548ZZA Ultrasonography of Superior Vena Cava, Guidance (ICD-10-PCS; 2021-07-30)
PROC: 0W9B00Z Drainage of Left Pleural Cavity with Drainage Device, Open Approach (ICD-10-PCS; 2021-08-08)
PROC: 0W9930Z Drainage of Right Pleural Cavity with Drainage Device, Percutaneous Approach (ICD-10-PCS; 2021-08-10)
PROC: 30233N1 Transfusion of Nonautologous Red Blood Cells into Peripheral Vein, Percutaneous Approach (ICD-10-PCS; 2021-08-27)
PROC: 02HV33Z Insertion of Infusion Device into Superior Vena Cava, Percutaneous Approach (ICD-10-PCS; 2021-08-29)
PROC: B548ZZA Ultrasonography of Superior Vena Cava, Guidance (ICD-10-PCS; 2021-08-29)
PROC: B32T1ZZ Computerized Tomography (CT Scan) of Left Pulmonary Artery using Low Osmolar Contrast (ICD-10-PCS; 2021-09-05)
PROC: B3201ZZ Computerized Tomography (CT Scan) of Thoracic Aorta using Low Osmolar Contrast (ICD-10-PCS; 2021-09-05)
PROC: B32S1ZZ Computerized Tomography (CT Scan) of Right Pulmonary Artery using Low Osmolar Contrast (ICD-10-PCS; 2021-09-05)
PROC: 0W9B30Z Drainage of Left Pleural Cavity with Drainage Device, Percutaneous Approach (ICD-10-PCS; 2021-09-11)
PROC: B32T1ZZ Computerized Tomography (CT Scan) of Left Pulmonary Artery using Low Osmolar Contrast (ICD-10-PCS; 2021-09-25)
PROC: B3201ZZ Computerized Tomography (CT Scan) of Thoracic Aorta using Low Osmolar Contrast (ICD-10-PCS; 2021-09-25)
PROC: B32S1ZZ Computerized Tomography (CT Scan) of Right Pulmonary Artery using Low Osmolar Contrast (ICD-10-PCS; 2021-09-25)
PROC: 0W9930Z Drainage of Right Pleural Cavity with Drainage Device, Percutaneous Approach (ICD-10-PCS; 2021-09-25)
PROC: BW241ZZ Computerized Tomography (CT Scan) of Chest and Abdomen using Low Osmolar Contrast (ICD-10-PCS; 2021-09-30)
PROC: 0W9B30Z Drainage of Left Pleural Cavity with Drainage Device, Percutaneous Approach (ICD-10-PCS; 2021-10-01)
PROC: 0DH63UZ Insertion of Feeding Device into Stomach, Percutaneous Approach (ICD-10-PCS; 2021-10-02)
PROC: B32T1ZZ Computerized Tomography (CT Scan) of Left Pulmonary Artery using Low Osmolar Contrast (ICD-10-PCS; 2021-10-16)
PROC: B3201ZZ Computerized Tomography (CT Scan) of Thoracic Aorta using Low Osmolar Contrast (ICD-10-PCS; 2021-10-16)
PROC: B32S1ZZ Computerized Tomography (CT Scan) of Right Pulmonary Artery using Low Osmolar Contrast (ICD-10-PCS; 2021-10-16)
PROC: 0W9930Z Drainage of Right Pleural Cavity with Drainage Device, Percutaneous Approach (ICD-10-PCS; 2021-10-16)
PROC: 0WP900Z Removal of Drainage Device from Right Pleural Cavity, Open Approach (ICD-10-PCS; 2021-10-17)
PROC: 0W9900Z Drainage of Right Pleural Cavity with Drainage Device, Open Approach (ICD-10-PCS; 2021-10-17)
PROC: 0B110F4 Bypass Trachea to Cutaneous with Tracheostomy Device, Open Approach (ICD-10-PCS; 2021-10-20)
PROC: 02HV33Z Insertion of Infusion Device into Superior Vena Cava, Percutaneous Approach (ICD-10-PCS; 2021-10-21)
PROC: B548ZZA Ultrasonography of Superior Vena Cava, Guidance (ICD-10-PCS; 2021-10-21)
PROC: 3E0L3GC Introduction of Other Therapeutic Substance into Pleural Cavity, Percutaneous Approach (ICD-10-PCS; 2021-10-23)
PROC: 0BH17EZ Insertion of Endotracheal Airway into Trachea, Via Natural or Artificial Opening (ICD-10-PCS; 2021-10-24)
PROC: 0WPB30Z Removal of Drainage Device from Left Pleural Cavity, Percutaneous Approach (ICD-10-PCS; 2021-10-27)
PROC: 0BNN4ZZ Release Right Pleura, Percutaneous Endoscopic Approach (ICD-10-PCS; 2021-11-09)
PROC: 3E0L4GC Introduction of Other Therapeutic Substance into Pleural Cavity, Percutaneous Endoscopic Approach (ICD-10-PCS; 2021-11-09)
DX: A41.89 Other specified sepsis (principal); J12.82 Pneumonia due to coronavirus disease 2019; J93.0 Spontaneous tension pneumothorax; G62.81 Critical illness polyneuropathy; G72.81 Critical illness myopathy; R57.9 Shock, unspecified; G93.41 Metabolic encephalopathy; K81.0 Acute cholecystitis; E44.0 Moderate protein-calorie malnutrition; J15.5 Pneumonia due to Escherichia coli; J80 Acute respiratory distress syndrome; U07.1 COVID-19; J15.6 Pneumonia due to other Gram-negative bacteria; D68.69 Other thrombophilia; E87.0 Hyperosmolality and hypernatremia; E87.4 Mixed disorder of acid-base balance; R04.2 Hemoptysis; E87.1 Hypo-osmolality and hyponatremia; J90 Pleural effusion, not elsewhere classified; D62 Acute posthemorrhagic anemia; J98.11 Atelectasis; K92.2 Gastrointestinal hemorrhage, unspecified; Z99.11 Dependence on respirator [ventilator] status; Z68.1 Body mass index [BMI] 19.9 or less, adult; F13.239 Sedative, hypnotic or anxiolytic dependence with withdrawal, unspecified; R65.20 Severe sepsis without septic shock; D72.10 Eosinophilia, unspecified; D63.8 Anemia in other chronic diseases classified elsewhere; I27.20 Pulmonary hypertension, unspecified; E66.9 Obesity, unspecified; B09 Unspecified viral infection characterized by skin and mucous membrane lesions; E11.65 Type 2 diabetes mellitus with hyperglycemia; E87.6 Hypokalemia; E87.70 Fluid overload, unspecified; F41.9 Anxiety disorder, unspecified; G56.32 Lesion of radial nerve, left upper limb; I10 Essential (primary) hypertension; J45.909 Unspecified asthma, uncomplicated; E83.42 Hypomagnesemia; E83.39 Other disorders of phosphorus metabolism; T78.3XXA Angioneurotic edema, initial encounter; E83.51 Hypocalcemia; R74.01 Elevation of levels of liver transaminase levels; E87.5 Hyperkalemia; B96.20 Unspecified Escherichia coli [E. coli] as the cause of diseases classified elsewhere; U09.9 Post COVID-19 condition, unspecified; K59.00 Constipation, unspecified; E11.649 Type 2 diabetes mellitus with hypoglycemia without coma; L89.90 Pressure ulcer of unspecified site, unspecified stage; M21.332 Wrist drop, left wrist; T38.0X5A Adverse effect of glucocorticoids and synthetic analogues, initial encounter; Z66 Do not resuscitate; Z79.899 Other long term (current) drug therapy; Z78.1 Physical restraint status; M24.532 Contracture, left wrist; Y92.230 Patient room in hospital as the place of occurrence of the external cause
CPT/HCPCS: 32557; 36410; 36415; 36430; 36569; 36573; 36600; 43246; 70450; 71045; 71250; 71260; 71275; 74018; 74177; 76604; 76937; 76942; 80048; 80053; 80202; 81001; 81003; 82103; 82272; 82550; 82728; 82803; 82810; 82948; 83036; 83540; 83550; 83605; 83615; 83735; 83880; 83970; 84100; 84132; 84134; 84145; 84439; 84443; 84478; 84484; 85007; 85008; 85018; 85025; 85027; 85379; 85610; 85730; 86140; 86870; 86880; 86885; 86900; 86901; 86902; 86905; 86920; 86922; 87040; 87070; 87075; 87077; 87081; 87088; 87102; 87186; 87207; 87324; 87449; 92508; 92616; 93005; 93306; 93970; 93971; 94002; 94003; 94640; 94660; 94760; 94799; 97110; 97116; 97161; 97530; 97535; 97760; 99152; 99285; A4215; A4618; A4628; A6258; A6402; A6449; A7000; A7048; A7521; A7526; B4087; C1751; C9113; G0378; J0171; J0282; J0610; J0690; J0692; J0713; J0780; J1100; J1120; J1170; J1630; J1650; J1756; J1815; J1940; J1956; J2060; J2175; J2248; J2250; J2270; J2405; J2543; J2704; J2710; J2920; J2930; J2997; J3010; J3370; J3475; J3480; J3490; J7030; J7040; J7050; J7060; J7120; J7512; P9016; P9045; P9047; Q9963; Q9967; S0020